=== PATIENT | male | born 1980 ===

== ENCOUNTER 2021-08-19 11:53 | Emergency (ER) | payer OTHER, SELFPAY ==
--- NOTE | ~2021-08-19 | CT_ITS ---
EXAMINATION: CT ABDOMEN AND PELVIS WITH CONTRAST CLINICAL INFORMATION: Abdominal distention and vomiting. History of Crohn's disease. COMPARISON: CT abdomen/pelvis dated from 02/16/2018. TECHNIQUE: Multidetector volumetric images were obtained from the superior aspect of the liver through the pubic symphysis following administration 85 mL of Omnipaque 350 intravenous contrast. Sagittal and coronal reformatted images were obtained on the technologist's workstation. Oral contrast: No This CT examination was performed using dose optimization techniques as appropriate, variously including the following: *Automated exposure control *Adjustment of mA and/or kV according to patient size (this includes techniques or standardized protocols for targeted exams where dose is matched to indication/reason for exam; i.e. extremities or head) *Use of iterative reconstruction technique DLP: 533 mGy-cm FINDINGS: LUNG BASES: No focal consolidation or pleural effusion. LIVER, GALLBLADDER, AND BILIARY TREE: Stable mild intra and extrahepatic biliary ductal dilatation, likely related with post cholecystectomy state. The common bile duct measures up to approximately 0.8 cm in maximum diameter. The liver is otherwise normal in size, shape and attenuation without discrete focal abnormalities. PANCREAS: Mild fat stranding in the chacha hepatis (coronal images 38 and 39, series 6) and root of the mesentery (3:30) is not significantly changed. The main pancreatic duct is nondilated. No focal parenchymal abnormalities. SPLEEN: Spleen measures 12.1 cm craniocaudally, unchanged. ADRENAL GLANDS: Unremarkable. KIDNEYS AND URETERS: The kidneys are normal in size, shape, and attenuation. A few too small to characterize cortical hypodensities are redemonstrated. No hydronephrosis, hydroureter, or calculi seen. No perinephric stranding. BLADDER: Unremarkable. GASTROINTESTINAL TRACT: Redemonstration of postoperative changes from prior colectomy with a small bowel anastomosis in the right lower quadrant, a rectosigmoid anastomosis and additional anastomotic sutures just above the anus. There are a few prominent loops of small bowel in the anterior upper abdomen measuring up to 2.7 cm in maximum diameter with air-fluid levels. There is no evidence of active inflammatory bowel changes. No free air or drainable collection. Redemonstration of multiple surgical sutures in the omental fat, similar to prior. ABDOMINAL WALL: Midline surgical scar. Small fat-containing inguinal hernias. LYMPH NODES: No lymphadenopathy by size criteria. VASCULAR: Unremarkable. PELVIC VISCERA: Unremarkable. OSSEOUS STRUCTURES: No acute or aggressive osseous abnormalities. CT/CT abdomen pelvis w con IMPRESSION: Postoperative changes from prior colectomy. There are a few prominent loops of small bowel in the upper abdomen with air-fluid levels which could be related with an early partial small bowel obstruction. There is no significant disproportional dilatation nor fecalization to suspect a significant obstruction. No active inflammatory bowel changes, free air nor drainable collection. Other chronic findings as above.
[2021-08-19 12:30] VITALS: BP 107/70; PULSE 88; RESP 16; TEMP 36.2; O2SAT 97; BMI 26.6
[2021-08-19 12:53] LABS: MANUAL DIFF FLAG NO
[2021-08-19 12:55] LABS: Appearance Urine CLEAR; Color Urine YELLOW; Glucose Urine UA NEG (NEG); Leukocyte Esterase Urine NEG (NEG); Nitrite Urine NEG (NEG); PH 5.5 (5.0-8.0); Specific Gravity - Urine >= 1.030 (1.005-1.025); Urine Blood NEG (NEG); Urine Ketones NEG (NEG); Urine Protein NEG (NEG-TRACE)
[2021-08-19 12:57] LABS: Basophils Percent Auto 0.2 % (0-2); Eosinophils Percent Auto 0.3 % (0-4); Hematocrit 41.9 % (42.0-52.0); Hemoglobin 14.7 g/dl (14.0-18.0); Imm Gran Abs Auto 0.02 X10*3/uL (0.00-0.03); Imm Gran Pct Auto 0.3 % (0.0-0.4); Lymphocytes Absolute Auto 1.4 X10*3/uL (1.2-4.9); Lymphocytes Percent Auto 21.6 % (20-40); Mean Corpuscular HGB Conc 35.1 g/dl (31.0-36.0); Mean Corpuscular Hemoglobin 31.7 pg (27.0-33.0); Mean Corpuscular Volume 90.3 fL (80.0-98.0); Mean Platelet Volume 10.9 fL (9.4-12.4); Monocytes Absolute Auto 0.3 X10*3/uL (0.1-1.2); Monocytes Percent Auto 4.5 % (2-11); Neutrophils Absolute Auto 4.9 x10*3/uL (2.0-8.3); Neutrophils Percent Auto 73.1 % (45-73); Platelet Count 200 X10*3/uL (160-400); Red Blood Count 4.64 X10*6/uL (4.60-5.80); Red Cell Distribution Width 12.3 % (11.0-16.0); White Blood Count 6.6 X10*3/uL (4.8-10.8)
[2021-08-19 13:21] LABS: Alanine Aminotransferase 34 U/L (0-40); Albumin Level 4.4 g/dL (3.5-5.0); Alkaline Phosphatase 66 U/L (39-117); Anion Gap 11 (12-20); Aspartate Amino Transferase 25 U/L (5-37); Blood Urea Nitrogen 10 mg/dL (9-16); Calcium 9.9 mg/dL (8.4-10.2); Carbon Dioxide 26 mmol/L (22-29); Chloride 104 mmol/L (96-108); Creatinine Clr Calc Pharmacy 111.6; Estimated Glomerular Filt Rate > 60; Glucose Random 105 mg/dL (60-115); Lipase 16 U/L (8-78); Potassium 4.4 mmol/L (3.3-5.1); Sodium 137 mmol/L (135-145); Total Protein 8.1 g/dL (6.5-8.0)
--- NOTE | 2021-08-19 15:34 | ED_ITS ---
HPI - Abdominal Pain General Chief Complaint: Abdominal Pain Stated Complaint: Crohns flare Time Seen by Provider: 08/19/21 15:17 Source: patient Mode of arrival: ambulatory Limitations: no limitations History of Present Illness HPI narrative: 40-year-old male with history of Crohn's disease on weekly Humira here with report of diffuse abdominal pain over the last 2-3 days with vomiting. Patient tells me that he has only had very small liquid stools over the last 2 days. Yesterday the stool was bloody in appearance but today it is more watery. No fevers or chills or urinary symptoms. Patient feels like his abdomen is distended. The patient has a history of a partial colon resection and subsequent bowel obstruction at [facility] in [place]. 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 [place] and is waiting for his 1st appointment in September Related Data Allergies Allergy/AdvReac Type Severity Reaction Status Date / Time ondansetron [Ondansetron] Allergy Mild HIVES Verified 08/19/21 12:34 Sulfa (Sulfonamide Allergy Mild UNKNOWN Verified 08/19/21 12:34 Antibiotics) ketorolac Allergy Unknown Unknown Verified 08/19/21 12:34 meperidine [Demerol] Allergy Unknown Unknown Verified 08/19/21 12:34 metoclopramide [Reglan] Allergy Unknown Unknown Verified 08/19/21 12:34 morphine [Morphine] Allergy Unknown RASH Unverified 03/28/20 16:35 From REGLAN Allergy Mild PT UNSURE Uncoded 03/28/20 16:35 BUT STATES HE IS ALLERGIC Compro Allergy Unknown Unknown Uncoded 08/19/21 12:34 From COMPAZINE Allergy Unknown ITCHING Uncoded 03/28/20 16:35 From Demerol Allergy Unknown ITCHY HIVES Uncoded 03/28/20 16:35 From Toradol Allergy Unknown UNK Uncoded 03/28/20 16:35 Review of Systems Review of Systems Yes all other systems are reviewed and are negative Constitutional: Reports no additional constitutional complaints, Denies body ache(s), Denies chills, Denies fever(s), Denies headache(s) and Denies weakness Eyes: Reports no additional eye complaints and Denies change in vision Reports system reviewed and no additional complaints, except as documented, Denies dizziness, Denies headache(s), Denies nasal congestion, Denies nasal discharge and Denies neck pain Cardiovascular: Reports no additional cardiovascular complaints, Denies chest pain, Denies leg edema and Denies dyspnea Respiratory: Reports no additional respiratory complaints, Denies cough and Denies dyspnea Gastrointestinal: Reports no additional gastrointestinal complaints, Reports abdominal pain, Reports hematochezia, Denies diarrhea, Reports nausea and Reports vomiting Genitourinary: Denies urinary incontinence Musculoskeletal: Reports no additional musculoskeletal complaints, Denies back pain, Denies arthralgias, Denies joint swelling, Denies neck pain, Denies numbness and Denies tingling Skin/Breast: Reports system reviewed and no additional complaints, except as docu and Denies rash Reports system reviewed and no additional complaints, except as documented, Denies Abnormal speech present, Denies dizziness, Denies headache(s), Denies numbness, Denies tingling and Denies weakness Physical Exam Vital Signs: Vital Signs: Last Vital Signs Temp 97.1 F 08/19/21 12:30 Pulse 84 08/19/21 15:41 Resp 16 08/19/21 15:41 BP 135/72 08/19/21 15:41 Pulse Ox 98 08/19/21 15:41 BMI result Body Mass Index 26.6 Const: General: cooperative, healthy appearing, comfortable and no acute distress Orientation/consciousness: patient oriented x3 Limitations: no limitations HENMT: Head: Yes normal to inspection Ears: hearing grossly normal bilaterally and TM's normal bilaterally General nose exam: Normal external nose present Face and sinus: Yes normal facial exam Mouth: Normal oral and palatal mucosa present Throat: Yes posterior oropharynx normal, Yes tonsils normal and Yes uvula midline Eyes: General: appearance normal, both eyes and all related structures Pupils: Equal, round and reactive pupils present Neck: Neck: Yes normal visual inspection Chest: Chest palpation & inspection: normal inspection of the chest Resp: Effort & Inspection: normal respiratory effort Auscultation: clear to auscultation bilaterally Cardio: Rate: regular rate Rhythm: regular rhythm Peripheral pulses: Peripheral pulses 2+ throughout GI: Inspection: Yes normal to inspection Palpation (GI): Firmness to palpation present (GI) (+distended) and Tenderness to palpation present (GI) (diffusely) Auscultation: Hypoactive bowel sounds present Back/Spine/Pelvis: Thoracic/Lumbar Spine: thoracic and lumbar spine normal to inspection Skin: General skin exam: no rashes or lesions noted Neuro: General: patient oriented x3, no focal motor deficits and normal sensation to monofilament Cranial nerves: Yes Equal, round and reactive pupils present Cognition (Neuro): normal cognition Speech: No Abnormal speech present Gait exam (Neuro): Normal gait present Motor exam (neuro): 5/5 motor strength present throughout Extrem: General: Yes normal to inspection Course Course Course Narrative: 40-year-old male with history of Crohn's status post resection status post small-bowel obstruction here with reports of diffuse abdominal pain with abdominal distention and vomiting for the last 2-3 days. On arrival the patient has a firm and distended abdomen with diffuse tenderness throughout. Has hypoactive bowel sounds. Will need labs, UA, CT abdomen and pelvis to rule out obstruction. Patient has multiple medication allergies and tells me he can have zofran if he is pre-medicated with benadryl. 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 Lab Data Attestation: I reviewed the patient's lab results. Result diagrams: 08/19/21 12:47 08/19/21 12:47 Labs: Lab Results 08/19/21 08/19/21 08/19/21 Range/Units 12:43 12:47 12:47 WBC 6.6 (4.8-10.8) X10*3/uL RBC 4.64 (4.60-5.80) X10*6/uL Hgb 14.7 (14.0-18.0) g/dl Hct 41.9 L (42.0-52.0) % MCV 90.3 (80.0-98.0) fL MCH 31.7 (27.0-33.0) pg MCHC 35.1 (31.0-36.0) g/dl RDW 12.3 (11.0-16.0) % Plt Count 200 (160-400) X10*3/uL MPV 10.9 (9.4-12.4) fL Immature Gran % (Auto) 0.3 (0.0-0.4) % Neut % (Auto) 73.1 H (45-73) % Lymph % (Auto) 21.6 (20-40) % [place] % (Auto) 4.5 (2-11) % Eos % (Auto) 0.3 (0-4) % Baso % (Auto) 0.2 (0-2) % Lymph # (Auto) 1.4 (1.2-4.9) X10*3/uL [place] # (Auto) 0.3 (0.1-1.2) X10*3/uL Eos # (Auto) 0.0 (0.0-0.4) X10*3/uL Baso # (Auto) 0.0 (0.0-0.2) X10*3/uL Abs Immat Gran (auto) 0.02 (0.00-0.03) X10*3/uL Absolute Neuts (auto) 4.9 (2.0-8.3) x10*3/uL Absolute Nucleated RBC 0.000 (0.0-0.012) X10*3/uL Nucleated RBC % (auto) 0.0 (0.0-0.2) /100WBC ESR (0-15) MM/HR Sodium 137 (135-145) mmol/L Potassium 4.4 (3.3-5.1) mmol/L Chloride 104 (96-108) mmol/L Carbon Dioxide 26 (22-29) mmol/L Anion Gap 11 L (12-20) BUN 10 (9-16) mg/dL Creatinine 0.75 (0.5-1.4) mg/dL Estim Creat Clear Calc 111.6 Estimated GFR > 60 Random Glucose 105 (60-115) mg/dL Calcium 9.9 (8.4-10.2) mg/dL Total Bilirubin 1.0 (0.0-1.0) mg/dL AST 25 (5-37) U/L ALT 34 (0-40) U/L Alkaline Phosphatase 66 (39-117) U/L C-Reactive Protein 0.03 (< or = 0.50) mg/dL Total Protein 8.1 H (6.5-8.0) g/dL Albumin 4.4 (3.5-5.0) g/dL Lipase 16 (8-78) U/L Urine Color YELLOW Urine Appearance CLEAR Urine pH 5.5 (5.0-8.0) Ur Specific [place] >= 1.030 H (1.005-1.025) Urine Protein NEG (NEG-TRACE) MG/DL Urine Glucose (UA) NEG (NEG) MG/DL Urine Ketones NEG (NEG) MG/DL Urine Blood NEG (NEG) Urine Nitrite NEG (NEG) Ur Leukocyte Esterase NEG (NEG) COVID-19 (LONG) (Negative) COVID-19 Clin Com 08/19/21 08/19/21 Range/Units 12:47 15:40 WBC (4.8-10.8) X10*3/uL RBC (4.60-5.80) X10*6/uL Hgb (14.0-18.0) g/dl Hct (42.0-52.0) % MCV (80.0-98.0) fL MCH (27.0-33.0) pg MCHC (31.0-36.0) g/dl RDW (11.0-16.0) % Plt Count (160-400) X10*3/uL MPV (9.4-12.4) fL Immature Gran % (Auto) (0.0-0.4) % Neut % (Auto) (45-73) % Lymph % (Auto) (20-40) % [place] % (Auto) (2-11) % Eos % (Auto) (0-4) % Baso % (Auto) (0-2) % Lymph # (Auto) (1.2-4.9) X10*3/uL [place] # (Auto) (0.1-1.2) X10*3/uL Eos # (Auto) (0.0-0.4) X10*3/uL Baso # (Auto) (0.0-0.2) X10*3/uL Abs Immat Gran (auto) (0.00-0.03) X10*3/uL Absolute Neuts (auto) (2.0-8.3) x10*3/uL Absolute Nucleated RBC (0.0-0.012) X10*3/uL Nucleated RBC % (auto) (0.0-0.2) /100WBC ESR 9 (0-15) MM/HR Sodium (135-145) mmol/L Potassium (3.3-5.1) mmol/L Chloride (96-108) mmol/L Carbon Dioxide (22-29) mmol/L Anion Gap (12-20) BUN (9-16) mg/dL Creatinine (0.5-1.4) mg/dL Estim Creat Clear Calc Estimated GFR Random Glucose (60-115) mg/dL Calcium (8.4-10.2) mg/dL Total Bilirubin (0.0-1.0) mg/dL AST (5-37) U/L ALT (0-40) U/L Alkaline Phosphatase (39-117) U/L C-Reactive Protein (< or = 0.50) mg/dL Total Protein (6.5-8.0) g/dL Albumin (3.5-5.0) g/dL Lipase (8-78) U/L Urine Color Urine Appearance Urine pH (5.0-8.0) Ur Specific [place] (1.005-1.025) Urine Protein (NEG-TRACE) MG/DL Urine Glucose (UA) (NEG) MG/DL Urine Ketones (NEG) MG/DL Urine Blood (NEG) Urine Nitrite (NEG) Ur Leukocyte Esterase (NEG) COVID-19 (LONG) Negative (Negative) COVID-19 Clin Com See Note Discharge Plan Discharge Clinical Impression: Abdominal pain Patient Disposition: Still a Patient PMFSH Past Medical History Attestation statement: The following information was validated with the patient. Source: old records reviewed and nursing notes reviewed Medical History Acute Crohn's disease Social History Social History Alcohol intake: never Patient Tobacco Use Status: Never used Tobacco Use of substances other than those prescribed or required for medical reasons: No Advance Directives: No Advance Directives Information Provided: No
[2021-08-19 15:37] LABS: C Reactive Protein 0.03 mg/dL (< or = 0.50)
[2021-08-19 15:41] VITALS: BP 135/72; PULSE 84; RESP 16; O2SAT 98
[2021-08-19 15:57] LABS: Erythrocyte Sedimentation Rate 9 MM/HR (0-15)
[2021-08-19] MEDS: HYDROmorphone HCl 0.5 MG/0.5 ML SYRINGE IVPUSH (15:59)
[2021-08-19] MEDS: ondansetron HCL 4 MG/2 ML VIAL IVPUSH (16:00)
[2021-08-19] MEDS: diphenhydrAMINE HCL 50 MG/ML VIAL 25 MG IVPUSH (16:00)
[2021-08-19] MEDS: 0.9 % Sodium Chloride 1,000 ML 999 ML IV (16:00)
[2021-08-19 16:13] LABS: COVID-19 Test Negative (Negative)
[2021-08-19] MEDS: iohexoL 350 MG/ML 100 ML INFUS..BTL IV (17:08)
[2021-08-19 17:59] VITALS: BP 112/77; PULSE 80; RESP 18; O2SAT 97
[2021-08-19 20:21] VITALS: RESP 18
[2021-08-19] MEDS: HYDROmorphone HCl 2 MG/ML VIAL IVPUSH (20:21)
--- NOTE | 2021-08-19 20:27 | PHA.MEDREC ---
Pharmacy Consult ? Medication Reconciliation Pharmacy has completed the medication reconciliation.
[2021-08-19 21:05] VITALS: BP 131/82; PULSE 72; RESP 18; TEMP 36.9; O2SAT 94
== END 2021-08-19 21:19 | disposition left against medical advice (07) ==
PROVIDERS: Nurse Practitioner Family; Emergency Provider Emergency Medicine
DX: R10.9 Unspecified abdominal pain (principal); R14.0 Abdominal distension (gaseous); Z20.822 Contact with and (suspected) exposure to COVID-19; Z79.899 Other long term (current) drug therapy
CPT/HCPCS: 36415; 74177; 80053; 81003; 83690; 85025; 85652; 86140; 87635; 96361; 96374; 96375; 96376; 99284; J1170; J1200; J2405; Q9967

== ENCOUNTER 2021-09-01 11:03 | Emergency (ER) | payer OTHER, SELFPAY ==
[2021-09-01 11:05] VITALS: BP 123/71; PULSE 82; RESP 18; TEMP 36.7; O2SAT 96; BMI 27.1
[2021-09-01 11:26] LABS: MANUAL DIFF FLAG NO
[2021-09-01 11:27] LABS: Basophils Percent Auto 0.3 % (0-2); Eosinophils Absolute Auto 0.1 X10*3/uL (0.0-0.4); Eosinophils Percent Auto 0.9 % (0-4); Hematocrit 41.3 % (42.0-52.0); Hemoglobin 14.4 g/dl (14.0-18.0); Imm Gran Abs Auto 0.01 X10*3/uL (0.00-0.03); Imm Gran Pct Auto 0.2 % (0.0-0.4); Lymphocytes Absolute Auto 1.4 X10*3/uL (1.2-4.9); Lymphocytes Percent Auto 24.3 % (20-40); Mean Corpuscular HGB Conc 34.9 g/dl (31.0-36.0); Mean Corpuscular Hemoglobin 32.1 pg (27.0-33.0); Mean Platelet Volume 11.1 fL (9.4-12.4); Monocytes Absolute Auto 0.4 X10*3/uL (0.1-1.2); Neutrophils Percent Auto 68.3 % (45-73); Platelet Count 185 X10*3/uL (160-400); Red Blood Count 4.49 X10*6/uL (4.60-5.80); Red Cell Distribution Width 12.4 % (11.0-16.0); White Blood Count 5.8 X10*3/uL (4.8-10.8)
[2021-09-01 11:29] LABS: Appearance Urine CLEAR; Color Urine YELLOW; Glucose Urine UA NEG (NEG); Leukocyte Esterase Urine NEG (NEG); Nitrite Urine NEG (NEG); Urine Blood NEG (NEG); Urine Ketones NEG (NEG); Urine Protein NEG (NEG-TRACE)
[2021-09-01 11:42] LABS: COVID-19 Test Negative (Negative)
[2021-09-01 11:44] LABS: Alanine Aminotransferase 24 U/L (0-40); Albumin Level 4.3 g/dL (3.5-5.0); Alkaline Phosphatase 65 U/L (39-117); Anion Gap 10 (12-20); Aspartate Amino Transferase 19 U/L (5-37); Bilirubin Total 1.4 mg/dL (0.0-1.0); Blood Urea Nitrogen 15 mg/dL (9-16); Calcium 9.5 mg/dL (8.4-10.2); Carbon Dioxide 28 mmol/L (22-29); Chloride 105 mmol/L (96-108); Creatinine Clr Calc Pharmacy 108.7; Estimated Glomerular Filt Rate > 60; Glucose Random 114 mg/dL (60-115); Potassium 4.4 mmol/L (3.3-5.1); Sodium 139 mmol/L (135-145); Total Protein 7.7 g/dL (6.5-8.0)
== END 2021-09-01 17:39 | disposition left against medical advice (07) ==
PROVIDERS: Emergency Provider Emergency Medicine
DX: M79.10 Myalgia, unspecified site (principal); R11.10 Vomiting, unspecified; Z79.899 Other long term (current) drug therapy; Z20.822 Contact with and (suspected) exposure to COVID-19
CPT/HCPCS: 36415; 80053; 81003; 85025; 87635; 99283

== ENCOUNTER 2021-09-08 08:22 | Emergency (ER) | payer OTHER, SELFPAY ==
--- NOTE | ~2021-09-08 | CT_ITS ---
EXAMINATION: CT ABDOMEN AND PELVIS WITH CONTRAST CLINICAL INFORMATION: Rigid abdomen with abdominal pain. COMPARISON: CT abdomen and pelvis with contrast 08/19/2021 TECHNIQUE: Multidetector volumetric images were obtained from the superior aspect of the liver through the pubic symphysis following administration 85 mL of Omnipaque 350 intravenous contrast. Sagittal and coronal reformatted images were obtained on the technologist's workstation. Oral contrast: No This CT examination was performed using dose optimization techniques as appropriate, variously including the following: *Automated exposure control *Adjustment of mA and/or kV according to patient size (this includes techniques or standardized protocols for targeted exams where dose is matched to indication/reason for exam; i.e. extremities or head) *Use of iterative reconstruction technique DLP: 522 mGy-cm FINDINGS: LUNG BASES: The visualized lung bases are unremarkable. LIVER, GALLBLADDER, AND BILIARY TREE: The liver is normal in size, shape, and attenuation. No focal hepatic lesion or biliary ductal dilatation is present. The gallbladder has been surgically removed. PANCREAS: Unremarkable. SPLEEN: Unremarkable. ADRENAL GLANDS: Unremarkable. KIDNEYS AND URETERS: The kidneys are normal in size, shape, and attenuation. No hydronephrosis, hydroureter, or calculi seen. No perinephric stranding. BLADDER: Unremarkable. GASTROINTESTINAL TRACT: There is total colectomy with small bowel to sigmoid colon anastomosis in the upper pelvis. The anastomotic site appears patent. The small bowel loops are normal caliber. No free air or free fluid seen. Scattered surgical nuria are seen throughout the peritoneum in the upper and mid abdomen. ABDOMINAL WALL: There is a small umbilical hernia containing fat. LYMPH NODES: Normal. VASCULAR: Unremarkable. PELVIC VISCERA: There is no free air or free fluid. There are surgical sutures along the sigmoid colon. No abnormal pelvic lymph nodes. No inguinal hernia. Incidental penile prosthesis is noted. The prostate gland is mildly enlarged with central gland calcification. OSSEOUS STRUCTURES: No aggressive lytic or sclerotic process seen. CT/CT abdomen pelvis w con IMPRESSION: Postoperative changes from total colectomy with patent anastomotic site between the small bowel and colon. No small bowel obstruction, inflammatory process or free fluid seen. No abnormal pelvic or retroperitoneal lymph nodes seen. Post cholecystectomy changes. Prostate is mildly enlarged. Fleischner guidelines were followed.
[2021-09-08 08:29] VITALS: BP 114/74; PULSE 74; RESP 18; TEMP 36.9; O2SAT 98; BMI 26.6
--- NOTE | 2021-09-08 08:52 | ED_ITS ---
HPI - Abdominal Pain General Chief Complaint: Abdominal Pain Stated Complaint: body aches chrones disease Time Seen by Provider: 09/08/21 08:52 Source: patient Mode of arrival: ambulatory Limitations: no limitations History of Present Illness HPI narrative: Patient is a 40 year old male presenting to the emergency department today with abdominal pain and nausea. Patient states that he has a history of crohns disease and an intermittent small bowel obstruction. Patient states that 1 month ago he had a small bowel obstruction that caused him to get admitted and then it self resolved. Patient states that dilaudid and zofran usually helps his pain. Patient denies any dizziness, lightheadedness, fever, chills, blurry vision, double vision, loss of vision, chest pain, difficulty breathing, shortness of breath, back pain, night sweats, pain with urination, increased urinary frequency, increased urinary urgency, blood in his urine or stool, syncope or a near syncopal episode, recent trauma or falls, bowel incontinence, bladder incontinence, bowel retention, bladder retention, or any other complaints at this time. MD elicited complaint: abdominal pain Pertinent past history: other (crohns disease, small bowel obstruction) Onset (ago): day(s) (1) Pain Consistency: constant Location: diffuse Severity: moderate Pain scale (0-10): 7 Quality: cramping and sharp Migration to: no migration Exacerbating factors: nothing Relieving factors: nothing Associated symptoms: nausea and vomiting Related Data Home Medications Medication Instructions Recorded Confirmed adalimumab 40 mg/0.4 mL 40 mg SUBCUT QWEEK 08/19/21 08/19/21 subcutaneous pen kit (Alexusira(CF) Pen) clonazepam 1 mg tablet 1 tab PO BID PRN 08/19/21 08/19/21 ferrous sulfate 325 mg (65 mg 1 tab PO Q OTHER DAY 08/19/21 08/19/21 iron) tablet,delayed release loratadine 10 mg tablet 1 tab PO DAILY PRN 08/19/21 08/19/21 magnesium oxide 400 mg (241.3 mg 1 tab PO BEDTIME 08/19/21 08/19/21 magnesium) tablet multivitamin with folic acid 400 1 tab PO DAILY 08/19/21 08/19/21 mcg tablet (Daily-Davis (with folic acid)) omeprazole 20 mg capsule,delayed 1 cap PO BID 08/19/21 08/19/21 release propranolol 10 mg tablet 1 tab PO BID 08/19/21 08/19/21 riboflavin (vitamin B2) 100 mg 2 tab PO BID 08/19/21 08/19/21 tablet (Vitamin B-2) sumatriptan succinate 100 mg tablet 100 mg PO DAILY PRN 08/19/21 08/19/21 tizanidine 4 mg tablet 1 - 1.5 tab PO BEDTIME 08/19/21 08/19/21 zolpidem 10 mg tablet 1 tab PO BEDTIME 08/19/21 08/19/21 Previous Rx's Medication Instructions Recorded tramadol 50 mg tablet 50 mg PO Q6H PRN #7 tab 08/19/21 Allergies Allergy/AdvReac Type Severity Reaction Status Date / Time ondansetron [Ondansetron] Allergy Mild HIVES Verified 08/19/21 12:34 Sulfa (Sulfonamide Allergy Mild UNKNOWN Verified 08/19/21 12:34 Antibiotics) ketorolac Allergy Unknown Unknown Verified 08/19/21 12:34 meperidine [Demerol] Allergy Unknown Unknown Verified 08/19/21 12:34 metoclopramide [Reglan] Allergy Unknown Unknown Verified 08/19/21 12:34 morphine [Morphine] Allergy Unknown RASH Unverified 03/28/20 16:35 From REGLAN Allergy Mild PT UNSURE Uncoded 03/28/20 16:35 BUT STATES HE IS ALLERGIC Compro Allergy Unknown Unknown Uncoded 08/19/21 12:34 From COMPAZINE Allergy Unknown ITCHING Uncoded 03/28/20 16:35 From Demerol Allergy Unknown ITCHY HIVES Uncoded 03/28/20 16:35 From Toradol Allergy Unknown UNK Uncoded 03/28/20 16:35 Review of Systems Constitutional: Reports no additional constitutional complaints, Denies chills, Denies fever(s) and Denies night sweats Eyes: Reports no additional eye complaints, Denies blurry vision, Denies change in vision, Denies diplopia, Denies eye discharge, Denies loss of vision and Denies eye pain Denies dizziness Cardiovascular: Reports no additional cardiovascular complaints, Denies chest pain, Denies lightheadedness, Denies Loss of Consciousness and Denies dyspnea Respiratory: Reports no additional respiratory complaints and Denies dyspnea Gastrointestinal: Reports no additional gastrointestinal complaints, Reports a bdominal pain, Denies melena, Denies hematochezia, Denies change in bowel habits, Denies change in stool character, Reports nausea and Reports vomiting Genitourinary: Reports no additional male genitourinary complaints, Denies hematuria, Denies oliguria, Denies difficulty urinating, Denies dysuria, Denies urinary frequency, Denies urinary hesitancy, Denies urinary incontinence and Denies urinary urgency Musculoskeletal: Reports no additional musculoskeletal complaints, Denies numbness and Denies tingling Denies dizziness, Denies loss of vision, Denies numbness and Denies tingling Psychiatric: Reports no additional psychiatric complaints Endocrine: Reports no additional endocrine complaints Hematologic/Lymphatic: Reports no additional hematologic/lymphatic complaints Allergic/Immunologic: Reports no additional allergic/immunologic complaints [facility] Past Medical History Attestation statement: The following information was validated with the patient. Source: old records reviewed Medical History Acute Crohn's disease Partial small bowel obstruction Social History Social History Alcohol intake: never Patient Tobacco Use Status: Never used Tobacco Use of substances other than those prescribed or required for medical reasons: No Advance Directives: No Advance Directives Information Provided: No Physical Exam ED Vital Signs: Vital Signs - 24 hr 09/08/21 08:29 09/08/21 09:46 09/08/21 11:06 Temperature 98.4 F 98.4 F Pulse Rate 74 72 80 Respiratory Rate 18 14 20 Blood Pressure 114/74 126/72 107/62 Pulse Oximetry 98 97 98 09/08/21 12:46 Temperature 98.3 F Pulse Rate 69 Respiratory Rate 16 Blood Pressure 128/83 Pulse Oximetry 96 BMI result Body Mass Index 26.6 Const General: cooperative, no acute distress, alert and awake Nutritional Appearance: well nourished Orientation/consciousness: patient oriented x3 Limitations: no limitations HENMT Head: Yes normal to inspection and Yes atraumatic Ears: hearing grossly normal bilaterally and external ears normal General nose exam: Normal external nose present, no nasal discharge noted and no epistaxis Face and sinus: Yes normal facial exam, No abrasion and No laceration Mouth: Normal oral and palatal mucosa present, no drooling and no muffled voice Eyes General: appearance normal, both eyes and all related structures Periorbital: periorbital findings normal Eyelids: Yes eyelids normal Conjunctivae: conjunctivae normal Pupils: Equal, round and reactive pupils present EOM: EOMs intact bilaterally Neck Neck: Yes normal visual inspection, Yes full ROM and Yes no lymphadenopathy Chest Chest palpation & inspection: normal inspection of the chest Resp Effort & Inspection: normal respiratory effort and able to speak in complete sentences Auscultation: clear to auscultation bilaterally Cardio Rate: regular rate Rhythm: regular rhythm GI Inspection: Yes distended Palpation (GI): Firmness to palpation present (GI) other (diffuse) and Tenderness to palpation present (GI) other (diffuse tenderness) Auscultation: normal bowel sounds Neuro General: patient oriented x3 and moves all extremities Cranial nerves: Yes Equal, round and reactive pupils present Cognition (Neuro): normal cognition Motor exam (neuro): 5/5 motor strength present throughout Sensory Exam: Normal double simultaneous stimulation for sensation Coordination: [id number] test normal Extrem General: Yes normal to inspection, Yes full ROM and Yes capillary refill normal Psych Appearance: grossly normal Mental Status: mental status grossly normal Affect: normal affect Attitude: cooperative Thought process: Normal thought process present Thought content: Normal thought content present Insight: Good insight present (Psych) MDM - Abdominal Pain MDM Narrative Medical decision making narrative: Patient is a 40 year old male presenting to the emergency department today with abdominal pain. Patient's physical exam showed tenderness and firmness to palpation of the patient's abdomen however, patient's bowel sounds were normal throughout. Patient's blood work was unremarkable. Patient's abdominal CT showed no acute process. I explained my physical exam findings as well as all test results to the patient. I answered all questions asked by the patient. Patient received IV dilaudid and ativan which he stated helped his symptoms significantly. I stressed the importance of the patient taking his medication as prescribed. I stressed the importance of the patient following up with his primary care provider and his GI specialist. I stressed the importance of the patient returning to the emergency department immediately if his symptoms were to worsen or if he were to develop any dizziness, shortness of breath, difficulty breathing, chest pain, blurry vision, loss of vision, nausea, vomiting, abdominal pain, fever, chills, back pain, or any other complaints. Patient verbalized agreement and understanding with this treatment plan and discharge. Differential Diagnosis Differential diagnosis: Likely abdominal pain, bowel perforation and small bowel obstruction Medical Records Attestation: I reviewed the patient's medical records. Lab Data Attestation: I reviewed the patient's lab results. Result diagrams: 09/08/21 09:44 09/08/21 09:44 Labs: Lab Results 09/08/21 09/08/21 09/08/21 Range/Units 09:44 09:44 09:44 WBC 5.2 (4.8-10.8) X10*3/uL RBC 4.26 L (4.60-5.80) X10*6/uL Hgb 13.8 L (14.0-18.0) g/dl Hct 39.2 L (42.0-52.0) % MCV 92.0 (80.0-98.0) fL MCH 32.4 (27.0-33.0) pg MCHC 35.2 (31.0-36.0) g/dl RDW 12.6 (11.0-16.0) % Plt Count 157 L (160-400) X10*3/uL MPV 11.1 (9.4-12.4) fL Immature Gran % (Auto) 0.2 (0.0-0.4) % Neut % (Auto) 64.3 (45-73) % Lymph % (Auto) 26.6 (20-40) % Mckenzie % (Auto) 7.5 (2-11) % Eos % (Auto) 1.0 (0-4) % Baso % (Auto) 0.4 (0-2) % Lymph # (Auto) 1.4 (1.2-4.9) X10*3/uL Mckenzie # (Auto) 0.4 (0.1-1.2) X10*3/uL Eos # (Auto) 0.1 (0.0-0.4) X10*3/uL Baso # (Auto) 0.0 (0.0-0.2) X10*3/uL Abs Immat Gran (auto) 0.01 (0.00-0.03) X10*3/uL Absolute Neuts (auto) 3.4 (2.0-8.3) x10*3/uL Absolute Nucleated RBC 0.000 (0.0-0.012) X10*3/uL Nucleated RBC % (auto) 0.0 (0.0-0.2) /100WBC PT 11.2 (9.9-13.0) SEC INR 1.0 (0.9-1.1) APTT 28.8 (24.1-38.0) SEC Sodium 140 (135-145) mmol/L Potassium 4.4 (3.3-5.1) mmol/L Chloride 107 (96-108) mmol/L Carbon Dioxide 27 (22-29) mmol/L Anion Gap 10 L (12-20) BUN 15 (9-16) mg/dL Creatinine 0.70 (0.5-1.4) mg/dL Estim Creat Clear Calc 119.5 Estimated GFR > 60 Random Glucose 104 (60-115) mg/dL Calcium 9.6 (8.4-10.2) mg/dL Total Bilirubin 1.2 H (0.0-1.0) mg/dL AST 25 (5-37) U/L ALT 24 (0-40) U/L Alkaline Phosphatase 62 (39-117) U/L Total Protein 7.3 (6.5-8.0) g/dL Albumin 4.1 (3.5-5.0) g/dL Imaging Data CT scan - abdomen: Attestation: I personally reviewed and interpreted this imaging study as follows: Radiologist's impression: EXAMINATION: CT ABDOMEN AND PELVIS WITH CONTRAST? CLINICAL INFORMATION: Rigid abdomen with abdominal pain.? COMPARISON: CT abdomen and pelvis with contrast 08/19/2021 TECHNIQUE: Multidetector volumetric images were obtained from the superior aspect of the liver through the pubic symphysis following administration 85 mL of Omnipaque 350 intravenous contrast. Sagittal and coronal reformatted images were obtained on the technologist's workstation.? Oral contrast: No This CT examination was performed using dose optimization techniques as appropriate, variously including the following: *Automated exposure control *Adjustment of mA and/or kV according to patient size (this includes techniques or standardized protocols for targeted exams where dose is matched to indication/reason for exam; i.e. extremities or head) *Use of iterative reconstruction technique DLP: 522 mGy-cm FINDINGS: LUNG BASES: The visualized lung bases are unremarkable.? LIVER, GALLBLADDER, AND BILIARY TREE: The liver is normal in size, shape, and attenuation. No focal hepatic lesion or biliary ductal dilatation is present. The gallbladder has been surgically removed.? PANCREAS: Unremarkable.? SPLEEN: Unremarkable.? ADRENAL GLANDS: Unremarkable.? KIDNEYS AND URETERS: The kidneys are normal in size, shape, and attenuation. No hydronephrosis, hydroureter, or calculi seen. No perinephric stranding. ? BLADDER: Unremarkable.? GASTROINTESTINAL TRACT: There is total colectomy with small bowel to sigmoid colon anastomosis in the upper pelvis. The anastomotic site appears patent. The small bowel loops are normal caliber. No free air or free fluid seen. Scattered surgical nuria are seen throughout the peritoneum in the upper and mid abdomen. ABDOMINAL WALL: There is a small umbilical hernia containing fat.? LYMPH NODES: Normal. VASCULAR: Unremarkable. PELVIC VISCERA: There is no free air or free fluid. There are surgical sutures along the sigmoid colon. No abnormal pelvic lymph nodes. No inguinal hernia. Incidental penile prosthesis is noted. The prostate gland is mildly enlarged with central gland calcification. OSSEOUS STRUCTURES: No aggressive lytic or sclerotic process seen.? CT/CT abdomen pelvis w con IMPRESSION: Postoperative changes from total colectomy with patent anastomotic site between the small bowel and colon. ? No small bowel obstruction, inflammatory process or free fluid seen. No abnormal pelvic or retroperitoneal lymph nodes seen. ? Post cholecystectomy changes. ? Prostate is mildly enlarged. ? Fleischner guidelines were followed. Dictated By: Kg Jean MD Signed By: Electronically signed by Kg Jean MD 09/08/21 4817 Discharge Plan Discharge Clinical Impression: Crohn disease Patient Disposition: Home, Self-Care Instructions: Crohn Disease (ED), Low Fiber Diet (ED) Additional Instructions: Follow up with your primary care provider and your GI specialist. Return to the emergency department immediately if your symptoms worsen or if you develop any dizziness, shortness of breath, difficulty breathing, chest pain, blurry vision, loss of vision, nausea, vomiting, abdominal pain, fever, chills, back pain, or any other complaints. Prescriptions: No Action tizanidine 4 mg tablet 1 - 1.5 tab PO BEDTIME 0RF riboflavin (vitamin B2) [Vitamin B-2] 100 mg tablet 2 tab PO BID 0RF sumatriptan succinate 100 mg tablet 100 mg PO DAILY PRN (Reason: Migraine Headache) 0RF clonazepam 1 mg tablet 1 tab PO BID PRN (Reason: Anxiety) 0RF propranolol 10 mg tablet 1 tab PO BID 0RF magnesium oxide 400 mg (241.3 mg magnesium) tablet 1 tab PO BEDTIME 0RF omeprazole 20 mg capsule,delayed release(DR/EC) 1 cap PO BID 0RF zolpidem 10 mg tablet 1 tab PO BEDTIME 0RF ferrous sulfate 325 mg (65 mg iron) tablet,delayed release (DR/EC) 1 tab PO Q OTHER DAY 0RF loratadine 10 mg tablet 1 tab PO DAILY PRN (Reason: Allergy Symptoms) 0RF multivitamin with folic acid [Daily-Davis (with folic acid)] 400 mcg tablet 1 tab PO DAILY 0RF Humira(CF) Pen 40 mg/0.4 mL pen injector kit 40 mg subcut QWEEK 0RF tramadol 50 mg tablet 50 mg PO Q6H PRN (Reason: pain) Qty: 7 0RF Referrals: Manuel Harris MD [Primary Care Provider] - 2 days Print Language: Brazilian
[2021-09-08 09:46] VITALS: BP 126/72; PULSE 72; RESP 14; TEMP 36.9; O2SAT 97
[2021-09-08 09:48] LABS: Basophils Percent Auto 0.4 % (0-2); Eosinophils Absolute Auto 0.1 X10*3/uL (0.0-0.4); Hematocrit 39.2 % (42.0-52.0); Hemoglobin 13.8 g/dl (14.0-18.0); Imm Gran Abs Auto 0.01 X10*3/uL (0.00-0.03); Imm Gran Pct Auto 0.2 % (0.0-0.4); Lymphocytes Absolute Auto 1.4 X10*3/uL (1.2-4.9); Lymphocytes Percent Auto 26.6 % (20-40); MANUAL DIFF FLAG NO; Mean Corpuscular HGB Conc 35.2 g/dl (31.0-36.0); Mean Corpuscular Hemoglobin 32.4 pg (27.0-33.0); Mean Platelet Volume 11.1 fL (9.4-12.4); Monocytes Absolute Auto 0.4 X10*3/uL (0.1-1.2); Monocytes Percent Auto 7.5 % (2-11); Neutrophils Absolute Auto 3.4 x10*3/uL (2.0-8.3); Neutrophils Percent Auto 64.3 % (45-73); Platelet Count 157 X10*3/uL (160-400); Red Blood Count 4.26 X10*6/uL (4.60-5.80); Red Cell Distribution Width 12.6 % (11.0-16.0); White Blood Count 5.2 X10*3/uL (4.8-10.8)
[2021-09-08] MEDS: ondansetron HCL 4 MG/2 ML VIAL IVPUSH (09:52)
[2021-09-08] MEDS: HYDROmorphone HCl 1 MG/ML SYRINGE IVPUSH ×2 (09:53→11:56)
[2021-09-08 10:04] LABS: Alanine Aminotransferase 24 U/L (0-40); Albumin Level 4.1 g/dL (3.5-5.0); Alkaline Phosphatase 62 U/L (39-117); Anion Gap 10 (12-20); Aspartate Amino Transferase 25 U/L (5-37); Bilirubin Total 1.2 mg/dL (0.0-1.0); Blood Urea Nitrogen 15 mg/dL (9-16); Calcium 9.6 mg/dL (8.4-10.2); Carbon Dioxide 27 mmol/L (22-29); Chloride 107 mmol/L (96-108); Creatinine Clr Calc Pharmacy 119.5; Estimated Glomerular Filt Rate > 60; Glucose Random 104 mg/dL (60-115); Potassium 4.4 mmol/L (3.3-5.1); Sodium 140 mmol/L (135-145); Total Protein 7.3 g/dL (6.5-8.0)
[2021-09-08 10:11] LABS: Prothrombin Time 11.2 SEC (9.9-13.0)
[2021-09-08 10:14] LABS: Partial Thromboplastin Time 28.8 SEC (24.1-38.0)
[2021-09-08 11:06] VITALS: BP 107/62; PULSE 80; RESP 20; O2SAT 98
[2021-09-08] MEDS: iohexoL 350 MG/ML 100 ML INFUS..BTL IV (11:38)
[2021-09-08] MEDS: LORazepam 2 MG/ML VIAL 1 MG IVPUSH (11:56)
[2021-09-08 12:46] VITALS: BP 128/83; PULSE 69; RESP 16; TEMP 36.8; O2SAT 96
[2021-09-08 14:04] LABS: Appearance Urine CLEAR; Color Urine YELLOW; Glucose Urine UA NEG (NEG); Leukocyte Esterase Urine NEG (NEG); Nitrite Urine NEG (NEG); PH 5.5 (5.0-8.0); Specific Gravity - Urine <= 1.005 (1.005-1.025); Urine Blood NEG (NEG); Urine Ketones NEG (NEG); Urine Protein NEG (NEG-TRACE)
[2021-09-08 14:34] VITALS: BP 106/77; PULSE 59; RESP 16; O2SAT 97
== END 2021-09-08 14:45 | disposition home or self-care (01) ==
PROVIDERS: Physician Assistant Medical; Emergency Provider Emergency Medicine; PCP Internal Medicine
DX: K50.90 Crohn's disease, unspecified, without complications (principal); R10.9 Unspecified abdominal pain; Z90.49 Acquired absence of other specified parts of digestive tract
CPT/HCPCS: 36415; 74177; 80053; 81003; 85025; 85610; 85730; 96374; 96375; 96376; 99284; 99285; J1170; J2060; J2405; Q9967

== ENCOUNTER 2021-09-16 14:43 | Emergency (ER) | payer OTHER, SELFPAY | END 2021-09-16 16:38 | disposition left against medical advice (07) | PROVIDERS: Emergency Provider Emergency Medicine | DX: R10.9 Unspecified abdominal pain (principal); R11.2 Nausea with vomiting, unspecified ==

== ENCOUNTER 2021-09-18 10:06 | Inpatient (IN) | payer OTHER, SELFPAY ==
--- NOTE | ~2021-09-18 | CT_ITS ---
EXAMINATION: CT ABDOMEN AND PELVIS WITH CONTRAST CLINICAL INFORMATION: Right abdominal pain. Question obstruction. COMPARISON: 09/08/2021 TECHNIQUE: Multidetector volumetric images were obtained from the superior aspect of the liver through the pubic symphysis following administration 85 mL of Omnipaque 350 intravenous contrast. Sagittal and coronal reformatted images were obtained on the technologist's workstation. Oral contrast: No This CT examination was performed using dose optimization techniques as appropriate, variously including the following: *Automated exposure control *Adjustment of mA and/or kV according to patient size (this includes techniques or standardized protocols for targeted exams where dose is matched to indication/reason for exam; i.e. extremities or head) *Use of iterative reconstruction technique DLP: 557 mGy-cm FINDINGS: LUNG BASES: The visualized lung bases are unremarkable. LIVER, GALLBLADDER, AND BILIARY TREE: The liver is normal in size, shape, and attenuation. No focal hepatic lesion or biliary ductal dilatation is present. Cholecystectomy. PANCREAS: Unremarkable. SPLEEN: Unremarkable. ADRENAL GLANDS: Unremarkable. KIDNEYS AND URETERS: The kidneys are normal in size, shape, and attenuation. No hydronephrosis, hydroureter, or calculi seen. No perinephric stranding. BLADDER: Unremarkable. GASTROINTESTINAL TRACT: The stomach is unremarkable. Status post total colectomy with J-pouch. Stool within the reservoir. Normal caliber small bowel. No obstruction. No inflammatory change. No free air or free fluid. ABDOMINAL WALL: No significant hernia is appreciated. LYMPH NODES: Normal. VASCULAR: Unremarkable. PELVIC VISCERA: The prostate and seminal vesicles are unremarkable. OSSEOUS STRUCTURES: No acute or suspicious osseous abnormality. Mild degenerative changes of the spine. CT/CT abdomen pelvis w con IMPRESSION: No acute findings of the abdomen or pelvis. Status post total colectomy. No bowel obstruction. No inflammation. Fleischner guidelines were followed.
[2021-09-18 10:10] VITALS: BP 116/77; PULSE 87; RESP 16; TEMP 36.6; O2SAT 98; BMI 26.6
--- NOTE | 2021-09-18 11:14 | ED_ITS ---
HPI - Abdominal Pain General Chief Complaint: Nausea/Vomiting/Diarrhea Stated Complaint: vomiting Time Seen by Provider: 09/18/21 11:00 Source: patient Mode of arrival: ambulatory Limitations: no limitations History of Present Illness HPI narrative: Patient is a 40-year-old male with a past medical history of Crohn's disease and partial colon resection and subsequent bowel obstructions. He presents today for evaluation of abdominal pain with vomiting and diarrhea. He states over the past 3 days he is experiencing diffuse abdominal pain but particularly worse on the right that has been increasingly worse. He has been vomiting and having multiple episodes of diarrhea each day. Today his vomit is red tinged, and he reports bright red blood in his stools also. He is concerned that his abdomen is very distended. He contact his primary care provider who advised him to come to the emergency department. Patient moved recently from [place], [place] and has not yet established care with a wide area network systems administrator in the area. Reports that he took his Humira today. He reports he has an upcoming appointment 09/24/2021. Related Data Home Medications Medication Instructions Recorded Confirmed adalimumab 40 mg/0.4 mL 40 mg SUBCUT QWEEK 08/19/21 08/19/21 subcutaneous pen kit (Humira(CF) Pen) clonazepam 1 mg tablet 1 tab PO BID PRN 08/19/21 08/19/21 ferrous sulfate 325 mg (65 mg 1 tab PO Q OTHER DAY 08/19/21 08/19/21 iron) tablet,delayed release loratadine 10 mg tablet 1 tab PO DAILY PRN 08/19/21 08/19/21 magnesium oxide 400 mg (241.3 mg 1 tab PO BEDTIME 08/19/21 08/19/21 magnesium) tablet multivitamin with folic acid 400 1 tab PO DAILY 08/19/21 08/19/21 mcg tablet (Daily-Davis (with folic acid)) omeprazole 20 mg capsule,delayed 1 cap PO BID 08/19/21 08/19/21 release propranolol 10 mg tablet 1 tab PO BID 08/19/21 08/19/21 riboflavin (vitamin B2) 100 mg 2 tab PO BID 08/19/21 08/19/21 tablet (Vitamin B-2) sumatriptan succinate 100 mg tablet 100 mg PO DAILY PRN 08/19/21 08/19/21 tizanidine 4 mg tablet 1 - 1.5 tab PO BEDTIME 08/19/21 08/19/21 zolpidem 10 mg tablet 1 tab PO BEDTIME 08/19/21 08/19/21 Previous Rx's Medication Instructions Recorded tramadol 50 mg tablet 50 mg PO Q6H PRN #7 tab 08/19/21 Allergies Allergy/AdvReac Type Severity Reaction Status Date / Time ondansetron [Ondansetron] Allergy Mild HIVES Verified 09/18/21 11:39 Sulfa (Sulfonamide Allergy Mild UNKNOWN Verified 09/18/21 11:39 Antibiotics) ketorolac Allergy Unknown Unknown Verified 09/18/21 11:39 meperidine [Demerol] Allergy Unknown Unknown Verified 09/18/21 11:39 metoclopramide [Reglan] Allergy Unknown Unknown Verified 09/18/21 11:39 morphine [Morphine] Allergy Unknown RASH Verified 09/18/21 11:39 ketamine Allergy Unknown Verified 09/18/21 11:39 From REGLAN Allergy Mild PT UNSURE Uncoded 09/18/21 11:39 BUT STATES HE IS ALLERGIC Compro Allergy Unknown Unknown Uncoded 09/18/21 11:39 From COMPAZINE Allergy Unknown ITCHING Uncoded 09/18/21 11:39 From Demerol Allergy Unknown ITCHY HIVES Uncoded 09/18/21 11:39 From Toradol Allergy Unknown UNK Uncoded 09/18/21 11:39 Review of Systems Review of Systems Constitutional : No Weight loss, No Fever, No Chills ENT/Mouth :? No sore throat, No Rhinorrhea Eyes: No Swelling, No Redness Cardiovascular : No Chest Pain, No SOB, No Edema Respiratory : No Cough, No Sputum, No Wheezing Gastrointestinal : Positive Nausea, Positive Vomiting, positive Diarrhea, positive abdominal pain, positive Hematochezia, No Melena Genitourinary : No Dysuria, No Urinary Frequency, No Hematuria, No Urgency? Musculoskeletal : No joint pain, No Myalgias, No Joint Swelling Skin : No Skin Lesions, No rash Neuro : No Weakness, No Numbness, No Dizziness, No Headache Psych : No Anxiety/Panic, No Depression Heme/Lymph: No Bruising, No Lymphadenopathy Endocrine : No Polyuria, No Polydipsia Yes all other systems are reviewed and are negative PMFSH Past Medical History Attestation statement: The following information was validated with the patient. Source: old records reviewed Medical History (Updated 09/18/21 @ 15:37 by Luis Woods DO) Acute Crohn's disease Partial small bowel obstruction Social History Social History Alcohol intake: never Patient Tobacco Use Status: Never used Tobacco Use of substances other than those prescribed or required for medical reasons: No Advance Directives: No Advance Directives Information Provided: No Physical Exam ED Vital Signs: Vital Signs - 24 hr 09/18/21 10:10 09/18/21 12:41 Temperature 97.8 F Pulse Rate 87 88 Respiratory Rate 16 Blood Pressure 116/77 122/78 Pulse Oximetry 98 99 BMI result Body Mass Index 26.6 Vital signs have been reviewed as normal and appeared to be correct. Blood pressure normal.? Heart rate normal.? Respiration rate normal. Temperature normal.? Oxygen saturation normal. Appearance: Alert.?Oriented to person, place and time. No acute distress.?Normal affect. Eyes: Pupils equal, round and reactive to light.? ENT: Pharynx normal.?? Neck: Normal inspection.? Neck supple.?? CVS: Heart sounds normal. Normal heart rate and rhythm.? Pulses normal.?? Respiratory: No respiratory distress.? Lung sounds clear to auscultation bilaterally?? Abdomen: Abdomen is diffusely tender, distended, visualized red tinged emesis bag. Normoactive bowel sounds. No pulsatile mass.?? Skin: Skin warm and dry.? Normal skin color.? Normal skin turgor.?? Extremities: No lower extremity edema.? Neuro: Moves all extremities spontaneously. Sensation intact bilaterally. CN II- XII intact. No focal neuro deficits. Ambulates with normal steady gait. Course Course Course Narrative: Patient is a 40-year-old male being evaluated for abdominal pain, nausea, vomiting, diarrhea, with bloody emesis and bloody stools. Given his history of Crohn's and history of obstructions he reports concern that there is currently an obstruction. He reports that typically his pain is well managed with Dilaudid as he has an allergy to ketorolac and morphine. In addition his nausea and vomiting are best controlled with ondansetron though he reports he dates to be premedicated with Benadryl as he does have a history of hives with this medication, and he is also allergic to metoclopramide and Compazine. Will obtain serum labs to evaluate for leukocytosis, anemia, abnormal electrolytes, normal renal function, abnormal hepatic/biliary function. Urinalysis to exclude infection. CT of the abdomen and pelvis to evaluate for colitis/obstruction. Disposition will be pending results Reevaluation(s) Reevaluation #1: CBC with no leukocytosis or anemia, hemoglobin and hematocrit 15.3 and 44.4 respectively. CMP is overall unremarkable, ALT is mildly elevated at 60 with normal total bilirubin and AST. CRP and ESR are normal. Urinalysis is clear from a sign of infection, no hematuria. Continues to report severe abdominal pain and vomiting, initial dosing of Dilaudid and zofran not helpful, will administer an extra dose at this time. Time: 12:30 Reevaluation #2: CT of the abdomen and pelvis is is normal, no bowel obstruction or inflammation. Patient remains with persistent pain, and vomiting. Unable to tolerate any p.o. intake. Message sent to GI Dr. Figueroa, for recommendations whether to initiate treatment with corticosteroids for possible Crohn's flare. Discussed with patient, he is agreeable for hospital admission. Message sent to Dr. Trevino for hospital admission. Time: 14:00 Reevaluation #3: GI recommends management with steroids and hospital admission, patient continues to report pain and vomiting at this time, will trial additional dose of Benadr yl 25 mg IV and Ativan 1 mg IV. Patient accepted for admission to hospitalist service by Dr. Woods Time: 14:35 MDM - Abdominal Pain Medical Records Attestation: I reviewed the patient's medical records. Lab Data Attestation: I reviewed the patient's lab results. Result diagrams: 09/18/21 11:33 09/18/21 11:33 Labs: Lab Results 09/18/21 09/18/21 09/18/21 Range/Units 11:33 11:33 11:33 WBC 6.3 (4.8-10.8) X10*3/uL RBC 4.78 (4.60-5.80) X10*6/uL Hgb 15.3 (14.0-18.0) g/dl Hct 44.4 (42.0-52.0) % MCV 92.9 (80.0-98.0) fL MCH 32.0 (27.0-33.0) pg MCHC 34.5 (31.0-36.0) g/dl RDW 12.7 (11.0-16.0) % Plt Count 182 (160-400) X10*3/uL MPV 10.6 (9.4-12.4) fL Immature Gran % (Auto) 0.2 (0.0-0.4) % Neut % (Auto) 73.3 H (45-73) % Lymph % (Auto) 21.3 (20-40) % [place] % (Auto) 4.3 (2-11) % Eos % (Auto) 0.6 (0-4) % Baso % (Auto) 0.3 (0-2) % Lymph # (Auto) 1.4 (1.2-4.9) X10*3/uL [place] # (Auto) 0.3 (0.1-1.2) X10*3/uL Eos # (Auto) 0.0 (0.0-0.4) X10*3/uL Baso # (Auto) 0.0 (0.0-0.2) X10*3/uL Abs Immat Gran (auto) 0.01 (0.00-0.03) X10*3/uL Absolute Neuts (auto) 4.7 (2.0-8.3) x10*3/uL Absolute Nucleated RBC 0.000 (0.0-0.012) X10*3/uL Nucleated RBC % (auto) 0.0 (0.0-0.2) /100WBC ESR (0-15) MM/HR Sodium 139 (135-145) mmol/L Potassium 4.4 (3.3-5.1) mmol/L Chloride 102 (96-108) mmol/L Carbon Dioxide 30 H (22-29) mmol/L Anion Gap 11 L (12-20) BUN 9 (9-16) mg/dL Creatinine 0.76 (0.5-1.4) mg/dL Estim Creat Clear Calc 110.1 Estimated GFR > 60 Random Glucose 95 (60-115) mg/dL Calcium 10.3 H D (8.4-10.2) mg/dL Magnesium 2.0 (1.6-2.6) mg/dL Total Bilirubin 1.0 (0.0-1.0) mg/dL AST 36 D (5-37) U/L ALT 60 H (0-40) U/L Alkaline Phosphatase 77 D (39-117) U/L C-Reactive Protein (< or = 0.50) mg/dL Total Protein 8.1 H (6.5-8.0) g/dL Albumin 4.4 (3.5-5.0) g/dL Lipase 18 (8-78) U/L Urine Color Urine Appearance Urine pH (5.0-8.0) Ur Specific [place] (1.005-1.025) Urine Protein (NEG-TRACE) MG/DL Urine Glucose (UA) (NEG) MG/DL Urine Ketones (NEG) MG/DL Urine Blood (NEG) Urine Nitrite (NEG) Ur Leukocyte Esterase (NEG) COVID-19 (LONG) Negative (Negative) COVID-19 Clin Com See Note 09/18/21 09/18/21 09/18/21 Range/Units 11:33 11:33 11:37 WBC (4.8-10.8) X10*3/uL RBC (4.60-5.80) X10*6/uL Hgb (14.0-18.0) g/dl Hct (42.0-52.0) % MCV (80.0-98.0) fL MCH (27.0-33.0) pg MCHC (31.0-36.0) g/dl RDW (11.0-16.0) % Plt Count (160-400) X10*3/uL MPV (9.4-12.4) fL Immature Gran % (Auto) (0.0-0.4) % Neut % (Auto) (45-73) % Lymph % (Auto) (20-40) % [place] % (Auto) (2-11) % Eos % (Auto) (0-4) % Baso % (Auto) (0-2) % Lymph # (Auto) (1.2-4.9) X10*3/uL [place] # (Auto) (0.1-1.2) X10*3/uL Eos # (Auto) (0.0-0.4) X10*3/uL Baso # (Auto) (0.0-0.2) X10*3/uL Abs Immat Gran (auto) (0.00-0.03) X10*3/uL Absolute Neuts (auto) (2.0-8.3) x10*3/uL Absolute Nucleated RBC (0.0-0.012) X10*3/uL Nucleated RBC % (auto) (0.0-0.2) /100WBC ESR 11 (0-15) MM/HR Sodium (135-145) mmol/L Potassium (3.3-5.1) mmol/L Chloride (96-108) mmol/L Carbon Dioxide (22-29) mmol/L Anion Gap (12-20) BUN (9-16) mg/dL Creatinine (0.5-1.4) mg/dL Estim Creat Clear Calc Estimated GFR Random Glucose (60-115) mg/dL Calcium (8.4-10.2) mg/dL Magnesium (1.6-2.6) mg/dL Total Bilirubin (0.0-1.0) mg/dL AST (5-37) U/L ALT (0-40) U/L Alkaline Phosphatase (39-117) U/L C-Reactive Protein 0.10 (< or = 0.50) mg/dL Total Protein (6.5-8.0) g/dL Albumin (3.5-5.0) g/dL Lipase (8-78) U/L Urine Color YELLOW Urine Appearance CLEAR Urine pH 6.0 (5.0-8.0) Ur Specific [place] 1.025 (1.005-1.025) Urine Protein NEG (NEG-TRACE) MG/DL Urine Glucose (UA) NEG (NEG) MG/DL Urine Ketones NEG (NEG) MG/DL Urine Blood NEG (NEG) Urine Nitrite NEG (NEG) Ur Leukocyte Esterase NEG (NEG) COVID-19 (LONG) (Negative) COVID-19 Clin Com Imaging Data CT scan - abdomen: Radiologist's impression: FINDINGS: LUNG BASES: The visualized lung bases are unremarkable.? LIVER, GALLBLADDER, AND BILIARY TREE: The liver is normal in size, shape, and attenuation. No focal hepatic lesion or biliary ductal dilatation is present. Cholecystectomy.? PANCREAS: Unremarkable.? SPLEEN: Unremarkable.? ADRENAL GLANDS: Unremarkable.? KIDNEYS AND URETERS: The kidneys are normal in size, shape, and attenuation. No hydronephrosis, hydroureter, or calculi seen. No perinephric stranding. ? BLADDER: Unremarkable.? GASTROINTESTINAL TRACT: The stomach is unremarkable. Status post total colectomy with J-pouch. Stool within the reservoir. Normal caliber small bowel. No obstruction. No inflammatory change. No free air or free fluid.? ABDOMINAL WALL: No significant hernia is appreciated.? LYMPH NODES: Normal. VASCULAR: Unremarkable. PELVIC VISCERA: The prostate and seminal vesicles are unremarkable.? OSSEOUS STRUCTURES: No acute or suspicious osseous abnormality. Mild degenerative changes of the spine.? CT/CT abdomen pelvis w con IMPRESSION: No acute findings of the abdomen or pelvis. Status post total colectomy. No bowel obstruction. No inflammation.? ? Fleischner guidelines were followed. Discharge Plan Discharge Clinical Impression: Crohn's disease Patient Disposition: Admitted As Inpatient
[2021-09-18 11:38] LABS: MANUAL DIFF FLAG NO
[2021-09-18] MEDS: 0.9 % Sodium Chloride 1,000 ML 999 ML IV (11:41)
[2021-09-18 11:42] LABS: Basophils Percent Auto 0.3 % (0-2); Eosinophils Percent Auto 0.6 % (0-4); Hematocrit 44.4 % (42.0-52.0); Hemoglobin 15.3 g/dl (14.0-18.0); Imm Gran Abs Auto 0.01 X10*3/uL (0.00-0.03); Imm Gran Pct Auto 0.2 % (0.0-0.4); Lymphocytes Absolute Auto 1.4 X10*3/uL (1.2-4.9); Lymphocytes Percent Auto 21.3 % (20-40); Mean Corpuscular HGB Conc 34.5 g/dl (31.0-36.0); Mean Corpuscular Volume 92.9 fL (80.0-98.0); Mean Platelet Volume 10.6 fL (9.4-12.4); Monocytes Absolute Auto 0.3 X10*3/uL (0.1-1.2); Monocytes Percent Auto 4.3 % (2-11); Neutrophils Absolute Auto 4.7 x10*3/uL (2.0-8.3); Neutrophils Percent Auto 73.3 % (45-73); Platelet Count 182 X10*3/uL (160-400); Red Blood Count 4.78 X10*6/uL (4.60-5.80); Red Cell Distribution Width 12.7 % (11.0-16.0); White Blood Count 6.3 X10*3/uL (4.8-10.8)
[2021-09-18] MEDS: diphenhydrAMINE HCL 50 MG/ML VIAL 25 MG IVPUSH ×2 (11:42→14:45)
[2021-09-18] MEDS: HYDROmorphone HCl 0.5 MG/0.5 ML SYRINGE IVPUSH ×2 (11:42→12:43)
[2021-09-18] MEDS: ondansetron HCL 4 MG/2 ML VIAL IVPUSH (11:43)
[2021-09-18 12:00] LABS: Appearance Urine CLEAR; Color Urine YELLOW; Glucose Urine UA NEG (NEG); Leukocyte Esterase Urine NEG (NEG); Nitrite Urine NEG (NEG); Specific Gravity - Urine 1.025 (1.005-1.025); Urine Blood NEG (NEG); Urine Ketones NEG (NEG); Urine Protein NEG (NEG-TRACE)
[2021-09-18 12:05] LABS: Alanine Aminotransferase 60 U/L (0-40); Albumin Level 4.4 g/dL (3.5-5.0); Alkaline Phosphatase 77 U/L (39-117); Anion Gap 11 (12-20); Aspartate Amino Transferase 36 U/L (5-37); Blood Urea Nitrogen 9 mg/dL (9-16); Calcium 10.3 mg/dL (8.4-10.2); Carbon Dioxide 30 mmol/L (22-29); Chloride 102 mmol/L (96-108); Creatinine Clr Calc Pharmacy 110.1; Estimated Glomerular Filt Rate > 60; Glucose Random 95 mg/dL (60-115); Lipase 18 U/L (8-78); Potassium 4.4 mmol/L (3.3-5.1); Sodium 139 mmol/L (135-145); Total Protein 8.1 g/dL (6.5-8.0)
[2021-09-18 12:22] LABS: Erythrocyte Sedimentation Rate 11 MM/HR (0-15)
[2021-09-18 12:36] LABS: COVID-19 Test Negative (Negative); IDNOW Serial# 55D5AD1C
[2021-09-18 12:41] VITALS: BP 122/78; PULSE 88; O2SAT 99
[2021-09-18] MEDS: iohexoL 350 MG/ML 100 ML INFUS..BTL IV (13:28)
[2021-09-18] MEDS: methylPREDNISolone Sod Succ 125 MG/2 ML VIAL 60 MG IVPUSH ×2 (14:45→21:46)
[2021-09-18] MEDS: LORazepam 2 MG/ML VIAL 1 MG IVPUSH (14:46)
[2021-09-18 15:11] VITALS: BP 116/83; PULSE 74; RESP 16; TEMP 36.6; O2SAT 99
--- NOTE | 2021-09-18 15:34 | P.HPHOSP_ITS ---
History of Present Illness Date of Service: 09/18/21 Chief Complaint: abdominal pain Patient is a 40-year-old male with a past medical history of Crohn's disease and partial colon resection and subsequent bowel obstructions.? He presents today for evaluation of abdominal pain with vomiting and diarrhea.? He states over the past 3 days he is experiencing diffuse abdominal pain but particularly worse on the right that has been increasingly worse.? He has been vomiting and having multiple episodes of diarrhea each day.? Today his vomit is red tinged, and he reports bright red blood in his stools also.? He is concerned that his abdomen is very distended.? He contact his primary care provider who advised him to come to the emergency department.? Patient moved recently from [place], [place] and has not yet established care with a marriage therapist in the area.? Reports that he took his Humira today. He reports he has an upcoming appointment 09/24/2021. Review of Systems Review of Systems: Denies chest pain Denies shortness of breath Admits to crampy abdominal pressure throughout his whole abdomen [facility] Medical History (Updated 09/18/21 @ 15:37 by Luis Woods DO) Acute Crohn's disease Partial small bowel obstruction Social History Alcohol intake: never Patient Tobacco Use Status: Never used Tobacco Use of substances other than those prescribed or required for medical reasons: No Advance Directives: No Advance Directives Information Provided: No Meds Allergies Allergy/AdvReac Type Severity Reaction Status Date / Time ondansetron [Ondansetron] Allergy Mild HIVES Verified 09/18/21 11:39 Sulfa (Sulfonamide Allergy Mild UNKNOWN Verified 09/18/21 11:39 Antibiotics) ketorolac Allergy Unknown Unknown Verified 09/18/21 11:39 meperidine [Demerol] Allergy Unknown Unknown Verified 09/18/21 11:39 metoclopramide [Reglan] Allergy Unknown Unknown Verified 09/18/21 11:39 morphine [Morphine] Allergy Unknown RASH Verified 09/18/21 11:39 ketamine Allergy Unknown Verified 09/18/21 11:39 From REGLAN Allergy Mild PT UNSURE Uncoded 09/18/21 11:39 BUT STATES HE IS ALLERGIC Compro Allergy Unknown Unknown Uncoded 09/18/21 11:39 From COMPAZINE Allergy Unknown ITCHING Uncoded 09/18/21 11:39 From Demerol Allergy Unknown ITCHY HIVES Uncoded 09/18/21 11:39 From Toradol Allergy Unknown UNK Uncoded 09/18/21 11:39 Active Medications: Current Medications Enoxaparin Sodium (Enoxaparin Sodium 40 Mg/0.4 Ml Syringe) 40 mg SUBCUT Q24H DULCE MARIA Hydromorphone HCl (Hydromorphone Hcl 1 Mg/Ml Syringe) 1 mg IVPUSH Q3H PRN; Protocol PRN Reason: Pain, Severe (Pain Scale 7-10) Methylprednisolone Sodium Succinate (Methylprednisolone Sod Succ 125 Mg/2 Ml Vial) 60 mg IVPUSH Q8H DULCE MARIA Oxycodone HCl (Oxycodone Hcl Immed Release 5 Mg Tablet) 10 mg PO Q3H PRN PRN Reason: Pain, Moderate (Pain Scale 4-6 Pharmacy Consult (Consult Rx Perform Med Rec) 1 each MISCELLANE ONCE PRN PRN Reason: Consult order Sodium Chloride (0.9 % Sodium Chloride Flush 3 Ml Syringe) 3 ml IVFLUSH QSHIFT DULCE MARIA Home Medications Medication Instructions Recorded Confirmed Last Taken Type adalimumab 40 mg/0.4 mL 40 mg SUBCUT QWEEK 08/19/21 08/19/21 Unknown History subcutaneous pen kit (Humira(CF) Pen) clonazepam 1 mg tablet 1 tab PO BID PRN 08/19/21 08/19/21 Unknown History ferrous sulfate 325 mg (65 mg 1 tab PO Q OTHER DAY 08/19/21 08/19/21 Unknown History iron) tablet,delayed release loratadine 10 mg tablet 1 tab PO DAILY PRN 08/19/21 08/19/21 Unknown History magnesium oxide 400 mg (241.3 mg 1 tab PO BEDTIME 08/19/21 08/19/21 Unknown History magnesium) tablet multivitamin with folic acid 400 1 tab PO DAILY 08/19/21 08/19/21 Unknown History mcg tablet (Daily-Davis (with folic acid)) omeprazole 20 mg capsule,delayed 1 cap PO BID 08/19/21 08/19/21 Unknown History release propranolol 10 mg tablet 1 tab PO BID 08/19/21 08/19/21 Unknown History riboflavin (vitamin B2) 100 mg 2 tab PO BID 08/19/21 08/19/21 Unknown History tablet (Vitamin B-2) sumatriptan succinate 100 mg tablet 100 mg PO DAILY PRN 08/19/21 08/19/21 Unknown History tizanidine 4 mg tablet 1 - 1.5 tab PO BEDTIME 08/19/21 08/19/21 Unknown History zolpidem 10 mg tablet 1 tab PO BEDTIME 08/19/21 08/19/21 Unknown History Physical Exam Vital Signs and Narrative: Vital Signs: Last Vital Signs Temp 98 F 09/18/21 15:11 Pulse 74 09/18/21 15:11 Resp 16 09/18/21 15:11 BP 116/83 09/18/21 15:11 Pulse Ox 99 09/18/21 15:11 BMI result Body Mass Index 26.6 Const: Other: Uncomfortable appearing lying in bed Resp: Other: Clear to auscultation bilaterally no rales rhonchi or wheezes Cardio: Other: No S4; positive S1-S2; no S3 murmurs upper gallops GI: Other: Abdomen distended mildly tympanitic with quiet bowel sounds throughout. The some mild voluntary guarding however no rebound Extrem: Other: No edema bilaterally Results Labs CBC and Chem 7: 09/18/21 11:33 09/18/21 11:33 Labs: Laboratory Results - last 24 hr 09/18/21 09/18/21 09/18/21 11:33 11:33 11:33 MCV 92.9 MCH 32.0 MCHC 34.5 RDW 12.7 Plt Count 182 MPV 10.6 Immature Gran % (Auto) 0.2 Neut % (Auto) 73.3 H Lymph % (Auto) 21.3 [place] % (Auto) 4.3 Eos % (Auto) 0.6 Baso % (Auto) 0.3 Lymph # (Auto) 1.4 [place] # (Auto) 0.3 Eos # (Auto) 0.0 Baso # (Auto) 0.0 Abs Immat Gran (auto) 0.01 Absolute Neuts (auto) 4.7 Absolute Nucleated RBC 0.000 Nucleated RBC % (auto) 0.0 ESR Anion Gap 11 L Estim Creat Clear Calc 110.1 Estimated GFR > 60 Random Glucose 95 Calcium 10.3 H D Magnesium 2.0 Total Bilirubin 1.0 AST 36 D ALT 60 H Alkaline Phosphatase 77 D C-Reactive Protein Total Protein 8.1 H Albumin 4.4 Lipase 18 Urine Color Urine Appearance Urine pH Ur Specific [place] Urine Protein Urine Glucose (UA) Urine Ketones Urine Blood Urine Nitrite Ur Leukocyte Esterase COVID-19 (LONG) Negative COVID-19 Clin Com See Note 09/18/21 09/18/21 09/18/21 11:33 11:33 11:37 MCV MCH MCHC RDW Plt Count MPV Immature Gran % (Auto) Neut % (Auto) Lymph % (Auto) [place] % (Auto) Eos % (Auto) Baso % (Auto) Lymph # (Auto) [place] # (Auto) Eos # (Auto) Baso # (Auto) Abs Immat Gran (auto) Absolute Neuts (auto) Absolute Nucleated RBC Nucleated RBC % (auto) ESR 11 Anion Gap Estim Creat Clear Calc Estimated GFR Random Glucose Calcium Magnesium Total Bilirubin AST ALT Alkaline Phosphatase C-Reactive Protein 0.10 Total Protein Albumin Lipase Urine Color YELLOW Urine Appearance CLEAR Urine pH 6.0 Ur Specific [place] 1.025 Urine Protein NEG Urine Glucose (UA) NEG Urine Ketones NEG Urine Blood NEG Urine Nitrite NEG Ur Leukocyte Esterase NEG COVID-19 (LONG) COVID-19 Clin Com Imaging Radiologist's Impressions: Impressions Abdomen/Pelvis CT 09/18/21 13:26 IMPRESSION: No acute findings of the abdomen or pelvis. Status post total colectomy. No bowel obstruction. No inflammation. Fleischner guidelines were followed. Assessment and Plan (1) Abdominal pain: Status: Acute (2) Acute Crohn's disease: Status: Acute Plan 40-year-old male with known history of Crohn's disease status post partial colon resection with subsequent bowel obstructions presents today with abdominal pain vomiting and diarrhea. States over the past 3 days experiencing diffuse abdominal pain worse on the right side similar to past Crohn's flares. He does notes episode of vomiting and diarrhea. States he took his Humira today. In the emergency room, CT of abdomen and pelvis failed to demonstrate bowel obstructions or acute pathology. Case discussed with GI. .. Admit IV fluids clear liquids and IV steroids 1. Acute Crohn's flare -admit GM after -maintenance IV fluids -pulse dose Solu-Medrol -pain management with Dilaudid alternating with oxycodone -GI consult in a.m. 2. Anxiety -continue clonazepam 1 mg b.i.d. p.r.n. 3. GERD -PPI in a.m., H2 RA in p.m. Full code Lovenox Patient requires inpatient hospitalization secondary to severe Crohn's flare and inability to hold down p.o.. He will be admitted with IV fluids and pain control Quality Stroke Does the patient have a stroke diagnosis?: No VTE Prior VTE?: No VTE Risk Level:: Medical - moderate - high VTE Device Contraindication: Treatment Not Indicated VTE Drug Contraindication: N/A - Med Ordered
[2021-09-18] MEDS: Dextrose 5 % and 0.9 % NaCl 1,000 ML 125 ML IVCONT (15:49)
--- NOTE | 2021-09-18 16:16 | PHA.MEDREC ---
Pharmacy Consult ? Medication Reconciliation Pharmacy has completed the medication reconciliation. spoke with patient in ED.
[2021-09-18] MEDS: Enoxaparin Sodium 40 MG/0.4 ML SYRINGE SUBCUT (16:24)
[2021-09-18] MEDS: HYDROmorphone HCl 1 MG/ML SYRINGE IVPUSH ×3 (16:25→21:47)
--- NOTE | 2021-09-18 16:34 | P.CNGI_ITS ---
History of Present Illness Data of Consult Service Date: 09/18/21 Requesting physician: Luis Woods Primary Care Provider: Manuel Harris MD [facility] Reason for consult: ? IBD flare 40 YM with IBD (?Crohn's disease/UC) seen at [facility] today with abdominal pain, vomiting and diarrhea: Patient is a 40-year-old male with a past medical history of Crohn's disease and partial colon resection and subsequent bowel obstructions.? He presents today for evaluation of abdominal pain with vomiting and diarrhea.? He states over the past 3 days he is experiencing diffuse abdominal pain but particularly worse on the right that has been increasingly worse.? He has been vomiting and having multiple episodes of diarrhea each day.? Today his vomit is red tinged, and he reports bright red blood in his stools also.? He is concerned that his abdomen is very distended.? He contact his primary care provider who advised him to come to the emergency department.? Patient moved recently from [place], [place] and has not yet established care with a clerk supervisor in the area.? Reports that he took his Humira today. Pt has had 2 prior ER visits for similar symptoms over the past 4 weeks Pt is scheduled to see Dr Espinosa He reports he has an upcoming appointment 09/26/2021. Pt was diagnosed with UC and underwent a total colectomy with colostomy and J Pouch in 2006 at in [place]. Colostomy was reversed after 6 months. He was subsequently diagnosed with CD ? in 2019 and had 2 additional surgeries since then - exploratory lap with lysis of adhesions for SBO - last surgery was 7 yrs ago. Pt has been on Humira 40 mg every week for the past 2 yrs with intermittent flares. He has noted worsening generalized abd pain with nausea and vomiting for the past 4 days He admits to passing gas. Abd pain improves partially after he has a BM and after passing gas. He denies fever, chills or sweating Patient denies symptoms of heartburn, dysphagia. He has 10-11 loose to watery BMs a day with intermittent blood mixed with stools He admits to loosing 25 lbs over the past year. Pt denies mouth ulcers, jt pains, skin rash or eye problems Patient denies major cardiac or pulmonary problems and admits to sleep apnea Denies being on chronic anticoagulation. 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 IMAGING STUDIES: 09/18/[address] SCAN SHOWED: GASTROINTESTINAL TRACT: The stomach is unremarkable. Status post total colectomy with J-pouch. Stool within the reservoir. Normal caliber small bowel. No obstruction. No inflammatory change. No free air or free fluid.? Review of Systems Review of Systems: Denies chest pain Denies shortness of breath Admits to crampy abdominal pressure throughout his whole abdomen PMFSH Past Medical History Medical History (Updated 09/26/21 @ 11:24 by Kyle Espinosa MD) Acute Crohn's disease Hx of ulcerative colitis Partial small bowel obstruction Family History Family History (Updated 09/26/21 @ 11:00 by FRANCO Guadalupe) Mother HTN (hypertension) Surgical History Surgical History (Updated 09/26/21 @ 11:00 by FRANCO Guadalupe) History of esophagogastroduodenoscopy (EGD) Hx of colonoscopy Social History Social History Household Members: Spouse and Children Housing: House Do you presently have visiting nurse or other home services: No Alcohol intake: never Patient Tobacco Use Status: Never used Tobacco service: No Current occupational status: disabled Meds Allergies Allergy/AdvReac Type Severity Reaction Status Date / Time ondansetron [Ondansetron] Allergy Mild HIVES Verified 09/26/21 10:58 Sulfa (Sulfonamide Allergy Mild UNKNOWN Verified 09/26/21 10:58 Antibiotics) ketorolac Allergy Unknown Unknown Verified 09/26/21 10:58 meperidine [Demerol] Allergy Unknown Unknown Verified 09/26/21 10:58 metoclopramide [Reglan] Allergy Unknown Unknown Verified 09/26/21 10:58 morphine [Morphine] Allergy Unknown RASH Verified 09/26/21 10:58 ketamine Allergy Unknown Verified 09/26/21 10:58 From REGLAN Allergy Mild PT UNSURE Uncoded 09/26/21 10:58 BUT STATES HE IS ALLERGIC Compro Allergy Unknown Unknown Uncoded 09/26/21 10:58 From COMPAZINE Allergy Unknown ITCHING Uncoded 09/26/21 10:58 From Demerol Allergy Unknown ITCHY HIVES Uncoded 09/26/21 10:58 From Toradol Allergy Unknown UNK Uncoded 09/26/21 10:58 Active Medications: Current Medications Enoxaparin Sodium (Enoxaparin Sodium 40 Mg/0.4 Ml Syringe) 40 mg SUBCUT Q24H [facility] Last Admin: 09/18/21 16:24 Dose: 40 mg Documented by: Hydromorphone HCl (Hydromorphone Hcl 1 Mg/Ml Syringe) 1 mg IVPUSH Q3H PRN; Protocol PRN Reason: Pain, Severe (Pain Scale 7-10) Last Admin: 09/18/21 16:25 Dose: 1 mg Documented by: Dextrose/Sodium Chloride (D5ns) 1,000 mls @ 125 mls/hr IVCONT .Q8H [facility] Last Admin: 09/18/21 15:49 Dose: 125 mls/hr Documented by: Methylprednisolone Sodium Succinate (Methylprednisolone Sod Succ 125 Mg/2 Ml Vial) 60 mg IVPUSH Q8H [facility] Oxycodone HCl (Oxycodone Hcl Immed Release 5 Mg Tablet) 10 mg PO Q3H PRN PRN Reason: Pain, Moderate (Pain Scale 4-6 Pharmacy Consult (Consult Rx Perform Med Rec) 1 each MISCELLANE ONCE PRN PRN Reason: Consult order Sodium Chloride (0.9 % Sodium Chloride Flush 3 Ml Syringe) 3 ml IVFLUSH QSHIFT [facility] Last Admin: 09/18/21 16:25 Dose: Not Given Documented by: Home Medications Medication Instructions Recorded Confirmed Last Taken Type adalimumab 40 mg/0.4 mL 40 mg SUBCUT TH@0900 08/19/21 09/18/21 09/18/21 History subcutaneous pen kit (Humira(CF) Pen) clonazepam 1 mg tablet 1 tab PO BID 08/19/21 09/18/21 Unknown History loratadine 10 mg tablet 1 tab PO DAILY PRN 08/19/21 09/18/21 Unknown History multivitamin with folic acid 400 1 tab PO DAILY 08/19/21 09/18/21 09/18/21 History mcg tablet (Daily-Davis (with folic acid)) omeprazole 20 mg capsule,delayed 40 cap PO DAILY@0630 08/19/21 09/18/21 Unknown History release propranolol 10 mg tablet 1 tab PO BID 08/19/21 09/18/21 09/18/21 History riboflavin (vitamin B2) 100 mg 2 tab PO BID 08/19/21 09/18/21 09/18/21 History tablet (Vitamin B-2) sumatriptan succinate 100 mg tablet 100 mg PO DAILY PRN 08/19/21 09/18/21 Unknown History tizanidine 4 mg tablet 1.5 tab PO BEDTIME PRN 08/19/21 09/18/21 Unknown History zolpidem 10 mg tablet 1 tab PO BEDTIME 08/19/21 09/18/21 09/17/21 History hydrocortisone 1 % topical cream 1 appl TOPICAL BID 09/18/21 09/18/21 09/18/21 History tramadol 50 mg tablet 50 mg PO Q12H PRN 09/18/21 09/18/21 Unknown History magnesium oxide 400 mg (241.3 mg 400 mg PO DAILY 09/26/21 Unknown History magnesium) tablet Physical Exam Vital Signs: Vital Signs: Last Vital Signs Temp 98 F 09/18/21 15:11 Pulse 74 09/18/21 15:11 Resp 16 09/18/21 15:11 BP 116/83 09/18/21 15:11 Pulse Ox 99 09/18/21 15:11 BMI result Body Mass Index 26.6 Const: General: no acute distress and ill appearing Nutritional Appearance: overweight Orientation/consciousness: patient oriented x3 Limitations: no limitations HENMT: Head: Yes normal to inspection Ears: hearing grossly normal bilaterally Mouth: Normal oral and palatal mucosa present Eyes: Sclerae: sclerae normal Pupils: Equal, round and reactive pupils present Neck: Neck: Yes normal visual inspection Chest: Chest palpation & inspection: normal inspection of the chest Resp: Effort & Inspection: normal respiratory effort Auscultation: clear to auscultation bilaterally Cardio: Palpation: normal PMI Rate: regular rate Rhythm: regular rhythm Heart sounds: S1 normal heart sound present, S2 normal heart sound present and no murmurs GI: Inspection: Yes scar (healed midline scar) Palpation (GI): Soft to palpation, Tenderness to palpation present (GI) (Mild to moderate diffuse tenderness) and No hepatosplenomegaly present Auscultation: normal bowel sounds Rectal Exam - Male: Yes deferred Skin: General skin exam: no rashes or lesions noted Neuro: General: patient oriented x3, gait normal and moves all extremities Cranial nerves: Yes Equal, round and reactive pupils present Psych: Appearance: grossly normal Mental Status: mental status grossly normal Results Labs CBC & Chem 7: 09/18/21 11:33 09/18/21 11:33 Labs: Short CBC 09/18/21 Range/Units 11:33 WBC 6.3 (4.8-10.8) X10*3/uL Hgb 15.3 (14.0-18.0) g/dl Hct 44.4 (42.0-52.0) % Plt Count 182 (160-400) X10*3/uL BMP 09/18/21 11:33 Sodium 139 Potassium 4.4 Chloride 102 Carbon Dioxide 30 H BUN 9 Creatinine 0.76 Calcium 10.3 H D Liver Function 09/18/21 Range/Units 11:33 Total Bilirubin 1.0 (0.0-1.0) mg/dL AST 36 D (5-37) U/L ALT 60 H (0-40) U/L Alkaline Phosphatase 77 D (39-117) U/L Albumin 4.4 (3.5-5.0) g/dL Urine 09/18/21 Range/Units 11:37 Urine Color YELLOW Urine Appearance CLEAR Urine pH 6.0 (5.0-8.0) Ur Specific [place] 1.025 (1.005-1.025) Urine Protein NEG (NEG-TRACE) MG/DL Urine Glucose (UA) NEG (NEG) MG/DL Assessment and Plan (1) Abdominal pain: Status: Resolved (2) Acute Crohn's disease: Status: Acute Plan 40 YM with known hx of Crohn's disease complicated by recurrent bowel obstru ction. Pt is status post total colectomy with J Pouch. He is on Humira 40 mg S/Q every week - last dose was earlier today. Abdominal pain and distension possibly related to Crohn's disease flare versus pouchitis. RECOMMENDATIONS: 1. Agree with IV pain medications, antiemetics and IV steroids. 2. Pt will be scheduled for a Flex Sigmoidoscopy (no prep) in the am to check for Pouchitis. Procedures Date of Service Date of Service: 09/18/21
[2021-09-18] MEDS: clonazePAM 1 MG TABLET PO (20:25)
[2021-09-18] MEDS: oxyCODONE HCl Immed Release 5 MG TABLET 10 MG PO ×2 (20:25→23:33)
[2021-09-18] MEDS: Propranolol HCL 10 MG TABLET PO (21:47)
[2021-09-18] MEDS: Zolpidem Tartrate 5 MG TABLET PO (21:50)
[2021-09-18 22:00] VITALS: BP 117/83; PULSE 108; RESP 18; TEMP 37.3; O2SAT 94
[2021-09-19] MEDS: Dextrose 5 % and 0.9 % NaCl 1,000 ML 125 ML IVCONT ×2 (00:21→08:03)
[2021-09-19 01:29] VITALS: BMI 27.6
--- NOTE | 2021-09-19 01:52 | PC.NURSE ---
Pt being transferred to room 479. Report given to JULAINN Mattson. Pt medicated for pain prior to transfer-Nguyen aware. Dr Rocha notified that patient is itchy all over and would like an order for Benardyl.
[2021-09-19] MEDS: HYDROmorphone HCl 1 MG/ML SYRINGE IVPUSH ×3 (01:59→09:51)
[2021-09-19] MEDS: 0.9 % Sodium Chloride Flush 3 ML SYRINGE IVFLUSH ×2 (02:01→08:03)
[2021-09-19] MEDS: diphenhydrAMINE HCL 50 MG/ML VIAL 25 MG IM (02:55)
[2021-09-19 03:19] VITALS: BMI 27.1
[2021-09-19] MEDS: oxyCODONE HCl Immed Release 5 MG TABLET 10 MG PO ×3 (03:24→14:52)
[2021-09-19 03:51] VITALS: BP 134/74; PULSE 98; RESP 20; TEMP 36.9; O2SAT 94
[2021-09-19] MEDS: methylPREDNISolone Sod Succ 125 MG/2 ML VIAL 60 MG IVPUSH ×2 (06:20→14:52)
[2021-09-19 08:00] VITALS: BP 108/67; PULSE 95; RESP 18; TEMP 37.1; O2SAT 94
[2021-09-19] MEDS: clonazePAM 1 MG TABLET PO (08:01)
[2021-09-19] MEDS: Propranolol HCL 10 MG TABLET PO (08:01)
[2021-09-19] MEDS: Multivitamin TABLET 1 TAB PO (08:01)
--- NOTE | 2021-09-19 09:26 | MHC.CM.PN ---
IMM 09/19/21 Male 40 DX Chrons exzcerbation. He lives with his family. He is independent with all functional mobility. DP is home no services. Patient understands that CM will set up Post hospital services, if needs change . Family will provide transportation.
[2021-09-19] MEDS: diphenhydrAMINE HCL 25 MG TABLET PO (09:51)
--- NOTE | 2021-09-19 11:47 | MHC.CM.PN ---
IMM 09/19/21 Male 40 DX Chrons exacerbation. Per MD rounds Patient will discharge home today with family support and transportation.
[2021-09-19 12:00] VITALS: BP 110/65; PULSE 91; RESP 18; TEMP 37.4; O2SAT 93
--- NOTE | 2021-09-19 12:57 | P.CONAN_ITS ---
[facility] Active Problems Active Problems: All Active Problems (Updated 09/18/21 @ 15:37 by Luis Woods DO) Acute Crohn's disease (Acute) Abdominal pain (Acute) Past Medical History Medical History (Updated 09/18/21 @ 15:37 by Luis Woods DO) Acute Crohn's disease Partial small bowel obstruction Family History Family history of problems with anesthesia: No Surgical History History of Problems with Anesthesia: No Social History Social History Household Members: Spouse and Children Housing: House Do you presently have visiting nurse or other home services: No Alcohol intake: never Patient Tobacco Use Status: Never used Tobacco service: No Current occupational status: disabled Meds Allergies Allergy/AdvReac Type Severity Reaction Status Date / Time ondansetron [Ondansetron] Allergy Mild HIVES Verified 09/18/21 11:39 Sulfa (Sulfonamide Allergy Mild UNKNOWN Verified 09/18/21 11:39 Antibiotics) ketorolac Allergy Unknown Unknown Verified 09/18/21 11:39 meperidine [Demerol] Allergy Unknown Unknown Verified 09/18/21 11:39 metoclopramide [Reglan] Allergy Unknown Unknown Verified 09/18/21 11:39 morphine [Morphine] Allergy Unknown RASH Verified 09/18/21 11:39 ketamine Allergy Unknown Verified 09/18/21 11:39 From REGLAN Allergy Mild PT UNSURE Uncoded 09/18/21 11:39 BUT STATES HE IS ALLERGIC Compro Allergy Unknown Unknown Uncoded 09/18/21 11:39 From COMPAZINE Allergy Unknown ITCHING Uncoded 09/18/21 11:39 From Demerol Allergy Unknown ITCHY HIVES Uncoded 09/18/21 11:39 From Toradol Allergy Unknown UNK Uncoded 09/18/21 11:39 Active Medications: Current Medications Clonazepam (Clonazepam 1 Mg Tablet) 1 mg PO BID [facility] Last Admin: 09/19/21 08:01 Dose: 1 mg Documented by: Diphenhydramine HCl (Diphenhydramine Hcl 25 Mg Tablet) 25 mg PO Q4H PRN PRN Reason: Itching Last Admin: 09/19/21 09:51 Dose: 25 mg Documented by: Enoxaparin Sodium (Enoxaparin Sodium 40 Mg/0.4 Ml Syringe) 40 mg SUBCUT Q24H [facility] Last Admin: 09/18/21 16:24 Dose: 40 mg Documented by: Hydrocortisone (Hydrocortisone 1 % Cream 28.35 Gm Tube) 1 appl TOPICAL BID [facility]; Protocol Last Admin: 09/19/21 08:04 Dose: Not Given Documented by: Hydromorphone HCl (Hydromorphone Hcl 1 Mg/Ml Syringe) 1 mg IVPUSH Q3H PRN; Protocol PRN Reason: Pain, Severe (Pain Scale 7-10) Last Admin: 09/19/21 09:51 Dose: 1 mg Documented by: Dextrose/Sodium Chloride (D5ns) 1,000 mls @ 125 mls/hr IVCONT .Q8H [facility] Last Admin: 09/19/21 08:03 Dose: 125 mls/hr Documented by: Promethazine HCl 6.25 mg/ (Sodium Chloride) 50.25 mls @ 201 mls/hr IV Q4H PRN PRN Reason: Nausea and Vomiting Last Infusion: 09/19/21 08:39 Dose: Infused Documented by: Lactated Ringer's (Lr) 1,000 mls @ 50 mls/hr IVCONT .Q20H [facility] Loratadine (Loratadine 10 Mg Tablet) 10 mg PO DAILY PRN PRN Reason: Allergy Symptoms Methylprednisolone Sodium Succinate (Methylprednisolone Sod Succ 125 Mg/2 Ml Vial) 60 mg IVPUSH Q8H [facility] Last Admin: 09/19/21 06:20 Dose: 60 mg Documented by: Multivitamins/Vitamin C (Multivitamin Tablet) 1 tab PO DAILY [facility] Last Admin: 09/19/21 08:01 Dose: 1 tab Documented by: Oxycodone HCl (Oxycodone Hcl Immed Release 5 Mg Tablet) 10 mg PO Q3H PRN PRN Reason: Pain, Moderate (Pain Scale 4-6 Last Admin: 09/19/21 08:01 Dose: 10 mg Documented by: Pharmacy Consult (Consult Rx Perform Med Rec) 1 each MISCELLANE ONCE PRN PRN Reason: Consult order Propranolol HCl (Propranolol Hcl 10 Mg Tablet) 10 mg PO BID [facility]; Protocol Last Admin: 09/19/21 08:01 Dose: 10 mg Documented by: Sodium Chloride (0.9 % Sodium Chloride Flush 3 Ml Syringe) 3 ml IVFLUSH QSHIFT [facility] Last Admin: 09/19/21 08:03 Dose: 3 ml Documented by: Sumatriptan Succinate (Sumatriptan Succinate 100 Mg Tablet) 100 mg PO DAILY PRN PRN Reason: Migraine Headache Tizanidine HCl (Tizanidine Hcl 4 Mg Tablet) 6 mg PO BEDTIME PRN PRN Reason: Muscle Spasm Tramadol HCl (Tramadol Hcl 50 Mg Tablet) 50 mg PO Q12H PRN PRN Reason: Pain (Scale Score 4-6) Zolpidem Tartrate (Zolpidem Tartrate 5 Mg Tablet) 5 mg PO BEDTIME [facility] Last Admin: 09/18/21 21:50 Dose: 5 mg Documented by: Home Medications Medication Instructions Recorded Confirmed Last Taken Type adalimumab 40 mg/0.4 mL 40 mg SUBCUT TH@0900 08/19/21 09/18/21 09/18/21 History subcutaneous pen kit (Humira(CF) Pen) clonazepam 1 mg tablet 1 tab PO BID 08/19/21 09/18/21 Unknown History loratadine 10 mg tablet 1 tab PO DAILY PRN 08/19/21 09/18/21 Unknown History multivitamin with folic acid 400 1 tab PO DAILY 08/19/21 09/18/21 09/18/21 History mcg tablet (Daily-Davis (with folic acid)) omeprazole 20 mg capsule,delayed 40 cap PO DAILY@0630 08/19/21 09/18/21 Unknown History release propranolol 10 mg tablet 1 tab PO BID 08/19/21 09/18/21 09/18/21 History riboflavin (vitamin B2) 100 mg 2 tab PO BID 08/19/21 09/18/21 09/18/21 History tablet (Vitamin B-2) sumatriptan succinate 100 mg tablet 100 mg PO DAILY PRN 08/19/21 09/18/21 Unknown History tizanidine 4 mg tablet 1.5 tab PO BEDTIME PRN 08/19/21 09/18/21 Unknown History zolpidem 10 mg tablet 1 tab PO BEDTIME 08/19/21 09/18/21 09/17/21 History hydrocortisone 1 % topical cream 1 appl TOPICAL BID 09/18/21 09/18/21 09/18/21 History tramadol 50 mg tablet 50 mg PO Q12H PRN 09/18/21 09/18/21 Unknown History Exam Exam Date and Time: September 19, 2021 1257 Height,Weight and Vital Signs: Height 5 ft 5 in Weight 74 kg Last Vital Signs Temp 99.4 F 09/19/21 12:00 Pulse 91 09/19/21 12:00 Resp 18 09/19/21 12:00 BP 110/65 09/19/21 12:00 Pulse Ox 93 09/19/21 12:00 Pertinent Lab Results Pertinent Lab Results: Laboratory Tests 09/18/21 09/18/21 09/18/21 11:33 11:33 11:33 WBC 6.3 RBC 4.78 Hgb 15.3 Hct 44.4 MCV 92.9 MCH 32.0 MCHC 34.5 RDW 12.7 Plt Count 182 MPV 10.6 Immature Gran % (Auto) 0.2 Neut % (Auto) 73.3 H Lymph % (Auto) 21.3 [place] % (Auto) 4.3 Eos % (Auto) 0.6 Baso % (Auto) 0.3 Lymph # (Auto) 1.4 [place] # (Auto) 0.3 Eos # (Auto) 0.0 Baso # (Auto) 0.0 Abs Immat Gran (auto) 0.01 Absolute Neuts (auto) 4.7 Absolute Nucleated RBC 0.000 Nucleated RBC % (auto) 0.0 ESR Sodium 139 Potassium 4.4 Chloride 102 Carbon Dioxide 30 H Anion Gap 11 L BUN 9 Creatinine 0.76 Estim Creat Clear Calc 110.1 Estimated GFR > 60 Random Glucose 95 Calcium 10.3 H D Magnesium 2.0 Total Bilirubin 1.0 AST 36 D ALT 60 H Alkaline Phosphatase 77 D C-Reactive Protein Total Protein 8.1 H Albumin 4.4 Lipase 18 Urine Color Urine Appearance Urine pH Ur Specific [place] Urine Protein Urine Glucose (UA) Urine Ketones Urine Blood Urine Nitrite Ur Leukocyte Esterase COVID-19 (LONG) Negative COVID-19 Clin Com See Note 09/18/21 09/18/21 09/18/21 11:33 11:33 11:37 WBC RBC Hgb Hct MCV MCH MCHC RDW Plt Count MPV Immature Gran % (Auto) Neut % (Auto) Lymph % (Auto) [place] % (Auto) Eos % (Auto) Baso % (Auto) Lymph # (Auto) [place] # (Auto) Eos # (Auto) Baso # (Auto) Abs Immat Gran (auto) Absolute Neuts (auto) Absolute Nucleated RBC Nucleated RBC % (auto) ESR 11 Sodium Potassium Chloride Carbon Dioxide Anion Gap BUN Creatinine Estim Creat Clear Calc Estimated GFR Random Glucose Calcium Magnesium Total Bilirubin AST ALT Alkaline Phosphatase C-Reactive Protein 0.10 Total Protein Albumin Lipase Urine Color YELLOW Urine Appearance CLEAR Urine pH 6.0 Ur Specific [place] 1.025 Urine Protein NEG Urine Glucose (UA) NEG Urine Ketones NEG Urine Blood NEG Urine Nitrite NEG Ur Leukocyte Esterase NEG COVID-19 (LONG) COVID-19 Clin Com Airway Mallampati Class: II TM Dist: >3cm Neck ROM: Full Heart: rrr Lungs: cta Assessment and Plan Assessment Anesthesia Assessment: Anesthesia Plan Discussed and Chart Reviewed Final Anesthetic Review Family History of Problems with Anesthesia: No History of Problems with Anesthesia: No NPO: Yes ASA Class: II Final Preanesthetic Review: No Changes in Pt Med Stat, Meds/Allgs Chart Reviewed and Consent Obtained/Reviewed Patient Risk: Intermediate Procedure Risk: Intermediate Anesthetic Plan Anesthetic Plan: MAC: Disposition: Standard PACU
--- NOTE | 2021-09-19 12:58 | P.OP_ITS ---
Operative Note Operative Note Date of Service: 09/19/21 Narrative: Pre-op diagnosis: Crohn's disease status post total colectomy with J Pouch Post-op diagnosis:?other (Inactive Crohn's disease, normal J Pouch) Procedure: FLEXIBLE SIGMOIDOSCOPY TILL WITH BIOPSIES Consent: Indications for the procedure and potential complications of bleeding, perforation, reaction to medications and missed diagnosis were discussed with the patient and informed consent was obtained. Instrument: Olympus GIF H 190 L mid-size upper endoscope Monitoring: Vital signs and clinical assessment, intermittent blood pressure monitoring, continuous EKG monitoring, Pulse oximetry and Carbon Dioxide monitoring were done throughout the procedure. Procedure: The patient was placed in the left lateral decubitis position and pre-procedure medications were administered. After a digital rectal examination of the ano-rectum, the video upper endoscope was inserted into the rectum and advanced through the J pouch and TI to 50 cms. The colonoscope was slowly withdrawn in a retrograde panoramic fashion and the colon mucosa was carefully examined including a retroflexed view of the rectum. Findings and interventions are described below. Procedure Difficulty: Without difficulty Findings: Terminal Ileum: Normal mucosa till 50 cms - random biopsies were obtained J Pouch:? Normal mucosa - random biopsies were obtained. Ano-rectum: Small internal hemorrhoids Colon preparation:? Good after some irrigation. There was some liquid and semi-solid stool in the colon which was suctioned. Impression and Post Procedure Diagnosis: Flexible sigmoidoscopy Findings: Normal terminal ileal mucosa of till 50 cms - random biopsies were obtained J Pouch:? Normal mucosa without endoscopic evidence of pouchitis - random biopsies were obtained. Moderate hemorrhoids on retroflexed exam. Plan: Await pathology results Patient has an appointment on 09/26/21 in the GI Clinic with Dr Espinosa. Above findings were reviewed with the patient. Surgeon: Sharon Figueroa MD Anesthesia:?MAC (Helena Andrew, DEAN) Was an Graphite Grinder used for this Procedure?:?Yes Graphite Grinder:?Silav Lui Estimated blood loss (mL):?0 Pathology:?other (A- TERMINAL ILEUM- R/O CROHNS DX? B- J- POUCH BIOPSIES) Condition:?stable Disposition:?PACU
[2021-09-19 13:02] VITALS: BP 107/64; PULSE 94; RESP 16; TEMP 36.6; O2SAT 95
[2021-09-19] MEDS: Lactated Ringers 1,000 ML 50 ML IVCONT (13:09)
[2021-09-19 14:03] VITALS: BP 92/43; PULSE 89; RESP 18; TEMP 37.1; O2SAT 98
[2021-09-19 14:18] VITALS: BP 104/64; PULSE 87; RESP 18; TEMP 37.1; O2SAT 94
--- NOTE | 2021-09-19 16:08 | P.DS_ITS ---
DS: Providers Provider Date of Service: 09/19/21 Date of admission: 09/18/21 15:06 Date of discharge: 09/19/21 Primary care physician: Manuel Harris MD Consults: 09/18/21 15:40 Consult to Gastroenterology Routine Consulting Provider: Sharon Figueroa Reason for consultation: Acute Crohn's flare Has provider been notified: No DS: Diagnosis Discharge Diagnosis (1) Abdominal pain: Status: Acute (2) Acute Crohn's disease: Status: Acute DS: Summary Hospital Course Hospital Course: Patient is a 40-year-old male with a past medical history of Crohn's disease and partial colon resection and subsequent bowel obstructions.? He presents today for evaluation of abdominal pain with vomiting and diarrhea.? He states over the past 3 days he is experiencing diffuse abdominal pain but particularly worse on the right that has been increasingly worse.? He has been vomiting and having multiple episodes of diarrhea each day.? Today his vomit is red tinged, and he reports bright red blood in his stools also.? He is concerned that his abdomen is very distended.? He contact his primary care provider who advised him to come to the emergency department.? Patient moved recently from [place], [place] and has not yet established care with a operational risk manager in the area.? Reports that he took his Humira today. He reports he has an upcoming appointment 09/24/2021. Hospital Course Admitted to hospital. Pain medication and IV steroids with good results. Seen in consultation by GI; underwent sigmoidoscopy today including pouch exploration which failed to demonstrate any acute pathology. At this point he has received several doses of steroids and is able to take a diet. He wishes discharge and I believe he is medically acceptable for same. He will be discharged to home to complete prednisone taper and will follow up with GI as scheduled later in the month Time Spent with Patient Time attestation: Total time spent providing and/or coordinating discharge services: Discharge coordination time: Greater than 30 minutes Quality: Stroke Does the patient have a stroke diagnosis?: No Physical Exam Vital Signs: Vital Signs: Last Vital Signs Temp 98.7 F 09/19/21 14:18 Pulse 87 09/19/21 14:18 Resp 18 09/19/21 14:18 BP 104/64 09/19/21 14:18 Pulse Ox 94 09/19/21 14:18 BMI result Body Mass Index 27.1 Const: Other: comfortable appearing lying in bed Resp: Other: Clear to auscultation bilaterally no rales rhonchi or wheezes Cardio: Other: No S4; positive S1-S2; no S3 murmurs upper gallops GI: Other: Abdomen distended mildly tympanitic with quiet bowel sounds throughout. The some mild voluntary guarding however no rebound Extrem: Other: No edema bilaterally DS: Data Data Completed and Pending Pending studies at discharge: Pending at discharge 09/19/21 14:05 Surgical [PTH] Routine Discharge Plan Discharge Patient Disposition: Home, Self-Care Discharge Diagnosis: Acute Crohns exacerbation Referrals: Manuel Harris MD [Primary Care Provider] - 1 Week Discharge Medications: New prednisone 10 mg tablet See Rx Instructions .Route .COMPLEX Qty: 45 0RF Rx Instructions: 10 mg orally; 5 tabs p.o. daily x3 days; 4 tabs p.o. daily x3 days; 3 tabs daily x3 days; 2 tabs daily x3 days; 1 tab daily x3 days oxycodone 10 mg tablet 10 mg PO TID PRN (Reason: pain) Qty: 30 0RF Continued hydrocortisone 1 % cream 1 appl topical BID 0RF tramadol 50 mg tablet 50 mg PO Q12H PRN (Reason: Pain (Scale Score 4-6)) 0RF tizanidine 4 mg tablet 1.5 tab PO BEDTIME PRN (Reason: Muscle Spasm) 0RF riboflavin (vitamin B2) [Vitamin B-2] 100 mg tablet 2 tab PO BID 0RF sumatriptan succinate 100 mg tablet 100 mg PO DAILY PRN (Reason: Migraine Headache) 0RF clonazepam 1 mg tablet 1 tab PO BID 0RF propranolol 10 mg tablet 1 tab PO BID 0RF omeprazole 20 mg capsule,delayed release(DR/EC) 40 cap PO DAILY@0630 0RF zolpidem 10 mg tablet 1 tab PO BEDTIME 0RF loratadine 10 mg tablet 1 tab PO DAILY PRN (Reason: Allergy Symptoms) 0RF multivitamin with folic acid [Daily-Davis (with folic acid)] 400 mcg tablet 1 tab PO DAILY 0RF Humira(CF) Pen 40 mg/0.4 mL pen injector kit 40 mg subcut TH@0900 0RF Discharge Orders: Discharge Order (Routine); Ordered 09/19/21 Ordered By: Luis Woods Diet: advance to usual diet Activity on Discharge: As tolerated Stand Alone Forms: Patient Portal Discharge page Care Plan Goals: Complete course of prednisone. Oxycodone for pain as needed. Health Concerns: Continue Humira as ordered. Follow-up with GI as scheduled Plan of Treatment: As above Assessment: See discharge summary
== END 2021-09-19 17:30 | disposition home or self-care (01) | DRG 387 ==
LOC: HO.ED 13:21 → HO.EDOVER 15:25 → HO.IMC 09-19 01:13
PROVIDERS: Internal Medicine Gastroenterology; Nurse Practitioner Family; Admitting Provider Hospitalist; Emergency Provider Emergency Medicine; PCP Internal Medicine; Visit Provider Hospitalist
PROC: 0DJD8ZZ Inspection of Lower Intestinal Tract, Via Natural or Artificial Opening Endoscopic (ICD-10-PCS; CPT 45330; principal; 2021-09-19 13:10)
DX: K50.90 Crohn's disease, unspecified, without complications (principal); F41.9 Anxiety disorder, unspecified; K64.8 Other hemorrhoids; K21.9 Gastro-esophageal reflux disease without esophagitis; Z20.822 Contact with and (suspected) exposure to COVID-19; Z88.2 Allergy status to sulfonamides; Z88.5 Allergy status to narcotic agent; Z79.899 Other long term (current) drug therapy
CPT/HCPCS: 36415; 74177; 80053; 81003; 83690; 83735; 85025; 85652; 86140; 87635; 88305; 96361; 96374; 96375; 96376; 99285; J1170; J1200; J1650; J2060; J2370; J2405; J2550; J2930; Q0163; Q9967

== ENCOUNTER → 2021-09-26 10:53 | Outpatient (BNVA) | payer OTHER, SELFPAY | PROVIDERS: PCP Internal Medicine; Referring Provider Internal Medicine; Visit Provider Internal Medicine Gastroenterology | DX: K50.90 Crohn's disease, unspecified, without complications (principal) | CPT/HCPCS: 99212 ==

== ENCOUNTER 2021-10-22 08:29 | Emergency (ER) | payer OTHER, SELFPAY ==
--- NOTE | ~2021-10-22 | CT_ITS ---
EXAMINATION: CT ABDOMEN AND PELVIS WITH CONTRAST CLINICAL INFORMATION: Rectal pain, bleeding and abdominal pain. History of ulcerative colitis and SBO. COMPARISON: CT abdomen and pelvis 09/18/2021. TECHNIQUE: Multidetector volumetric images were obtained from the superior aspect of the liver through the pubic symphysis following administration 85 mL of Omnipaque 350 intravenous contrast. Sagittal and coronal reformatted images were obtained on the technologist's workstation. Oral contrast: No This CT examination was performed using dose optimization techniques as appropriate, variously including the following: *Automated exposure control *Adjustment of mA and/or kV according to patient size (this includes techniques or standardized protocols for targeted exams where dose is matched to indication/reason for exam; i.e. extremities or head) *Use of iterative reconstruction technique DLP: 553 mGy-cm FINDINGS: LUNG BASES: The visualized lung bases are unremarkable. LIVER, GALLBLADDER, AND BILIARY TREE: The liver is normal in size, shape, and attenuation. No focal hepatic lesion or biliary ductal dilatation is present. The gallbladder has been surgically removed. PANCREAS: Unremarkable SPLEEN: The spleen is borderline enlarged. It measures 12.5 cm. ADRENAL GLANDS: Unremarkable KIDNEYS AND URETERS: The kidneys are normal in size, shape, and attenuation. No hydronephrosis, hydroureter, or calculi seen. No perinephric stranding. BLADDER: Unremarkable GASTROINTESTINAL TRACT: There are postsurgical sutures in the sigmoid rectum junction as well as along the proximal ascending colon/cecal region, likely from anastomosis following total colectomy. There is minimal stool visualized. The small bowel loops are normal caliber. There are surgical sutures scattered throughout the peritoneum. There is no bowel obstruction, free air or free fluid. ABDOMINAL WALL: A small umbilical hernia containing fat is noted. LYMPH NODES: No abnormal lymph nodes seen. VASCULAR: Unremarkable PELVIC VISCERA: The prostate gland is normal size. No free fluid seen. There is no abnormal pelvic or inguinal lymphadenopathy. OSSEOUS STRUCTURES: Unremarkable CT/CT abdomen pelvis w con IMPRESSION: There is no acute intra-abdominal process seen. Postsurgical changes at the sigmoid/rectal junction and proximal ascending colon/right mid quadrant. 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 No major change compared to previous study 09/18/2021. Fleischner guidelines were followed.
[2021-10-22 08:52] VITALS: BP 92/58; PULSE 72; RESP 18; TEMP 36.1; O2SAT 97; BMI 26.6
[2021-10-22 09:04] LABS: Basophils Percent Auto 0.5 % (0-2); Eosinophils Percent Auto 0.6 % (0-4); Hematocrit 43.1 % (42.0-52.0); Hemoglobin 14.9 g/dl (14.0-18.0); Imm Gran Abs Auto 0.01 X10*3/uL (0.00-0.03); Imm Gran Pct Auto 0.2 % (0.0-0.4); Lymphocytes Absolute Auto 1.6 X10*3/uL (1.2-4.9); Lymphocytes Percent Auto 24.3 % (20-40); MANUAL DIFF FLAG NO; Mean Corpuscular HGB Conc 34.6 g/dl (31.0-36.0); Mean Corpuscular Hemoglobin 32.1 pg (27.0-33.0); Mean Corpuscular Volume 92.9 fL (80.0-98.0); Mean Platelet Volume 10.7 fL (9.4-12.4); Monocytes Absolute Auto 0.5 X10*3/uL (0.1-1.2); Monocytes Percent Auto 7.4 % (2-11); Neutrophils Absolute Auto 4.3 x10*3/uL (2.0-8.3); Platelet Count 243 X10*3/uL (160-400); Red Blood Count 4.64 X10*6/uL (4.60-5.80); Red Cell Distribution Width 12.5 % (11.0-16.0); White Blood Count 6.5 X10*3/uL (4.8-10.8)
[2021-10-22 09:19] LABS: Alanine Aminotransferase 37 U/L (0-40); Albumin Level 4.3 g/dL (3.5-5.0); Alkaline Phosphatase 83 U/L (39-117); Anion Gap 14 (12-20); Aspartate Amino Transferase 40 U/L (5-37); Bilirubin Total 0.8 mg/dL (0.0-1.0); Blood Urea Nitrogen 8 mg/dL (9-16); Calcium 9.9 mg/dL (8.4-10.2); Carbon Dioxide 26 mmol/L (22-29); Chloride 106 mmol/L (96-108); Creatinine Clr Calc Pharmacy 103.3; Estimated Glomerular Filt Rate > 60; Glucose Random 104 mg/dL (60-115); Potassium 4.8 mmol/L (3.3-5.1); Sodium 141 mmol/L (135-145); Total Protein 8.1 g/dL (6.5-8.0)
--- NOTE | 2021-10-22 10:45 | ED.ABDPAIN ---
HPI - Abdominal Pain General Chief Complaint: Abdominal Pain Stated Complaint: Rectal bleed/Vomiting Time Seen by Provider: 10/22/21 10:44 Source: patient Mode of arrival: ambulatory Limitations: no limitations History of Present Illness MD elicited complaint: abdominal pain Pertinent past history: other (UC, Crohns) Onset (ago): day(s) (3) Pain Consistency: constant Location: periumbilical Severity: moderate Quality: aching and fullness Radiation: none Exacerbating factors: movement Relieving factors: nothing Context: history of similar episodes Associated symptoms: nausea, vomiting, diarrhea and hematochezia (2 days ago, + flatus today) Related Data Home Medications Medication Instructions Recorded Confirmed adalimumab 40 mg/0.4 mL 40 mg SUBCUT TH@0900 08/19/21 09/18/21 subcutaneous pen kit (Humira(CF) Pen) clonazepam 1 mg tablet 1 tab PO BID 08/19/21 09/18/21 loratadine 10 mg tablet 1 tab PO DAILY PRN 08/19/21 09/18/21 multivitamin with folic acid 400 1 tab PO DAILY 08/19/21 09/18/21 mcg tablet (Daily-Davis (with folic acid)) omeprazole 20 mg capsule,delayed 40 cap PO DAILY@0630 08/19/21 09/18/21 release propranolol 10 mg tablet 1 tab PO BID 08/19/21 09/18/21 riboflavin (vitamin B2) 100 mg 2 tab PO BID 08/19/21 09/18/21 tablet (Vitamin B-2) sumatriptan succinate 100 mg tablet 100 mg PO DAILY PRN 08/19/21 09/18/21 tizanidine 4 mg tablet 1.5 tab PO BEDTIME PRN 08/19/21 09/18/21 zolpidem 10 mg tablet 1 tab PO BEDTIME 08/19/21 09/18/21 hydrocortisone 1 % topical cream 1 appl TOPICAL BID 09/18/21 09/18/21 tramadol 50 mg tablet 50 mg PO Q12H PRN 09/18/21 09/18/21 magnesium oxide 400 mg (241.3 mg 400 mg PO DAILY 09/26/21 magnesium) tablet Previous Rx's Medication Instructions Recorded oxycodone 10 mg tablet 10 mg PO TID PRN #30 tab 09/19/21 prednisone 10 mg tablet See Rx Instructions .ROUTE 09/19/21 .COMPLEX #45 tab promethazine 25 mg tablet 25 mg PO TID PRN #14 tab 10/22/21 Allergies Allergy/AdvReac Type Severity Reaction Status Date / Time ondansetron [Ondansetron] Allergy Mild HIVES Verified 09/26/21 10:58 Sulfa (Sulfonamide Allergy Mild UNKNOWN Verified 09/26/21 10:58 Antibiotics) ketorolac Allergy Unknown Unknown Verified 09/26/21 10:58 meperidine [Demerol] Allergy Unknown Unknown Verified 09/26/21 10:58 metoclopramide [Reglan] Allergy Unknown Unknown Verified 09/26/21 10:58 morphine [Morphine] Allergy Unknown RASH Verified 09/26/21 10:58 ketamine Allergy Unknown Verified 09/26/21 10:58 From REGLAN Allergy Mild PT UNSURE Uncoded 09/26/21 10:58 BUT STATES HE IS ALLERGIC Compro Allergy Unknown Unknown Uncoded 09/26/21 10:58 From COMPAZINE Allergy Unknown ITCHING Uncoded 09/26/21 10:58 From Demerol Allergy Unknown ITCHY HIVES Uncoded 09/26/21 10:58 From Toradol Allergy Unknown UNK Uncoded 09/26/21 10:58 Review of Systems Review of Systems Constitutional : No Weight loss, No Fever, No Chills ENT/Mouth : No sore throat, No Rhinorrhea Eyes: No Swelling, No Redness Cardiovascular : No Chest Pain, No SOB, NoEdema Respiratory : No Cough, No Sputum, No Wheezing Gastrointestinal : Positive Nausea, Positive Vomiting, positive Diarrhea, positive abdominal Pain, pos Hematochezia, No Melena Genitourinary : No Dysuria, No Urinary Frequency, No Hematuria, No Urgency Musculoskeletal : No joint pain, No Myalgias, No Joint Swelling Skin : No Skin Lesions, No rash Neuro : No Weakness, No Numbness, No Dizziness, No Headache Psych : No Anxiety/Panic, No Depression Heme/Lymph: No Bruising, No Lymphadenopathy Endocrine : No Polyuria, No Polydipsia All other systems reviewed and are negative. [facility] Past Medical History Attestation statement: The following information was validated with the patient. Source: old records reviewed Medical History Acute Crohn's disease Hx of ulcerative colitis Partial small bowel obstruction Surgical History History of esophagogastroduodenoscopy (EGD) Hx of colonoscopy Family History Family History (Updated 09/26/21 @ 11:00 by FRANCO Guadalupe) Mother HTN (hypertension) Social History Social History Household Members: Spouse and Children Housing: House Do you presently have visiting nurse or other home services: No Alcohol intake: never Patient Tobacco Use Status: Never used Tobacco Advance Directives: No Advance Directives Information Provided: No service: No Current occupational status: disabled Physical Exam ED Vital Signs: Vital Signs - 24 hr 10/22/21 08:52 10/22/21 11:38 10/22/21 12:33 Temperature 96.9 F Pulse Rate 72 61 72 Respiratory Rate 18 16 12 Blood Pressure 92/58 L 108/73 100/72 Pulse Oximetry 97 99 100 10/22/21 14:17 10/22/21 14:53 Temperature Pulse Rate 68 66 Respiratory Rate 19 17 Blood Pressure 105/74 110/74 Pulse Oximetry 96 BMI result Body Mass Index 26.6 Appearance: Alert. Oriented X3. No acute distress. Eyes: Pupils equal, round and reactive to light. ENT: Pharynx normal. Neck: Normal inspection. Neck supple. CVS: Normal heart rate and rhythm. Pulses normal. Respiratory: No respiratory distress. Breath sounds normal. Abdomen: distended, moderate diffuse ttp pos guarding vol no rebound Skin: Skin warm and dry. Normal skin color. Normal skin turgor. Extremities: No lower extremity edema. No calf ttp Neuro: Oriented X 3. No motor deficit. No sensory deficit. Course Course Course Narrative: CTs can no acute findings, H/H stable - repeat doses of IV pain medications will send message to his GI doctor GI aware - no acute findings at this time can be DC home - gets his humira shot tomorrow MDM - Abdominal Pain MDM Narrative Medical decision making narrative: 40 yo male hx of UC/Crohns due for Humira tonorrow, SBO here with c/o abdominal pain distention, n/v, intermittent bloody stools x 2 to 3 days. At this time he is distended will need labs, CT scan for acute inflammation/SBO, IVF x 2L, IV fentanyl for pain/phenergan for nausea. Dispo per results and findings. Lab Data Result diagrams: 10/22/21 08:59 10/22/21 08:59 Labs: Lab Results 10/22/21 10/22/21 10/22/21 Range/Units 08:59 08:59 11:06 WBC 6.5 (4.8-10.8) X10*3/uL RBC 4.64 (4.60-5.80) X10*6/uL Hgb 14.9 (14.0-18.0) g/dl Hct 43.1 (42.0-52.0) % MCV 92.9 (80.0-98.0) fL MCH 32.1 (27.0-33.0) pg MCHC 34.6 (31.0-36.0) g/dl RDW 12.5 (11.0-16.0) % Plt Count 243 D (160-400) X10*3/uL MPV 10.7 (9.4-12.4) fL Immature Gran % (Auto) 0.2 (0.0-0.4) % Neut % (Auto) 67.0 (45-73) % Lymph % (Auto) 24.3 (20-40) % Pacific % (Auto) 7.4 (2-11) % Eos % (Auto) 0.6 (0-4) % Baso % (Auto) 0.5 (0-2) % Lymph # (Auto) 1.6 (1.2-4.9) X10*3/uL Pacific # (Auto) 0.5 (0.1-1.2) X10*3/uL Eos # (Auto) 0.0 (0.0-0.4) X10*3/uL Baso # (Auto) 0.0 (0.0-0.2) X10*3/uL Abs Immat Gran (auto) 0.01 (0.00-0.03) X10*3/uL Absolute Neuts (auto) 4.3 (2.0-8.3) x10*3/uL Absolute Nucleated RBC 0.000 (0.0-0.012) X10*3/uL Nucleated RBC % (auto) 0.0 (0.0-0.2) /100WBC Sodium 141 (135-145) mmol/L Potassium 4.8 (3.3-5.1) mmol/L Chloride 106 (96-108) mmol/L Carbon Dioxide 26 (22-29) mmol/L Anion Gap 14 (12-20) BUN 8 L (9-16) mg/dL Creatinine 0.81 (0.5-1.4) mg/dL Estim Creat Clear Calc 103.3 Estimated GFR > 60 Random Glucose 104 (60-115) mg/dL Lactic Acid (0.5-2.0) mmol/L Calcium 9.9 (8.4-10.2) mg/dL Total Bilirubin 0.8 (0.0-1.0) mg/dL AST 40 H (5-37) U/L ALT 37 (0-40) U/L Alkaline Phosphatase 83 (39-117) U/L Total Protein 8.1 H (6.5-8.0) g/dL Albumin 4.3 (3.5-5.0) g/dL Lipase 37 (8-78) U/L Stool Occult Blood NEGATIVE (NEGATIVE) 10/22/21 Range/Units 11:09 WBC (4.8-10.8) X10*3/uL RBC (4.60-5.80) X10*6/uL Hgb (14.0-18.0) g/dl Hct (42.0-52.0) % MCV (80.0-98.0) fL MCH (27.0-33.0) pg MCHC (31.0-36.0) g/dl RDW (11.0-16.0) % Plt Count (160-400) X10*3/uL MPV (9.4-12.4) fL Immature Gran % (Auto) (0.0-0.4) % Neut % (Auto) (45-73) % Lymph % (Auto) (20-40) % Pacific % (Auto) (2-11) % Eos % (Auto) (0-4) % Baso % (Auto) (0-2) % Lymph # (Auto) (1.2-4.9) X10*3/uL Pacific # (Auto) (0.1-1.2) X10*3/uL Eos # (Auto) (0.0-0.4) X10*3/uL Baso # (Auto) (0.0-0.2) X10*3/uL Abs Immat Gran (auto) (0.00-0.03) X10*3/uL Absolute Neuts (auto) (2.0-8.3) x10*3/uL Absolute Nucleated RBC (0.0-0.012) X10*3/uL Nucleated RBC % (auto) (0.0-0.2) /100WBC Sodium (135-145) mmol/L Potassium (3.3-5.1) mmol/L Chloride (96-108) mmol/L Carbon Dioxide (22-29) mmol/L Anion Gap (12-20) BUN (9-16) mg/dL Creatinine (0.5-1.4) mg/dL Estim Creat Clear Calc Estimated GFR Random Glucose (60-115) mg/dL Lactic Acid 0.8 (0.5-2.0) mmol/L Calcium (8.4-10.2) mg/dL Total Bilirubin (0.0-1.0) mg/dL AST (5-37) U/L ALT (0-40) U/L Alkaline Phosphatase (39-117) U/L Total Protein (6.5-8.0) g/dL Albumin (3.5-5.0) g/dL Lipase (8-78) U/L Stool Occult Blood (NEGATIVE) Discharge Plan Discharge Clinical Impression: Abdominal pain Qualifiers: Abdominal location: generalized Qualified Code(s): R10.84 - Generalized abdominal pain Patient Disposition: Home, Self-Care Instructions: Abdominal Pain (ED) Additional Instructions: return to ED for any worsening symptoms or concerns please follow up with your doctor labs and CT scan normal - no acute findings no obstruction no inflammation an?lisis de laboratorio y tomograf?a computarizada normales - sin hallazgos agudos sin obstrucci?n sin inflamaci?n Prescriptions: New promethazine 25 mg tablet 25 mg PO TID PRN (Reason: nausea and vomiting) Qty: 14 0RF No Action hydrocortisone 1 % cream 1 appl topical BID 0RF tramadol 50 mg tablet 50 mg PO Q12H PRN (Reason: Pain (Scale Score 4-6)) 0RF prednisone 10 mg tablet See Rx Instructions .Route .COMPLEX Qty: 45 0RF Rx Instructions: 10 mg orally; 5 tabs p.o. daily x3 days; 4 tabs p.o. daily x3 days; 3 tabs daily x3 days; 2 tabs daily x3 days; 1 tab daily x3 days oxycodone 10 mg tablet 10 mg PO TID PRN (Reason: pain) Qty: 30 0RF tizanidine 4 mg tablet 1.5 tab PO BEDTIME PRN (Reason: Muscle Spasm) 0RF riboflavin (vitamin B2) [Vitamin B-2] 100 mg tablet 2 tab PO BID 0RF sumatriptan succinate 100 mg tablet 100 mg PO DAILY PRN (Reason: Migraine Headache) 0RF clonazepam 1 mg tablet 1 tab PO BID 0RF propranolol 10 mg tablet 1 tab PO BID 0RF omeprazole 20 mg capsule,delayed release(DR/EC) 40 cap PO DAILY@0630 0RF zolpidem 10 mg tablet 1 tab PO BEDTIME 0RF loratadine 10 mg tablet 1 tab PO DAILY PRN (Reason: Allergy Symptoms) 0RF multivitamin with folic acid [Daily-Davis (with folic acid)] 400 mcg tablet 1 tab PO DAILY 0RF Humira(CF) Pen 40 mg/0.4 mL pen injector kit 40 mg subcut TH@0900 0RF magnesium oxide 400 mg (241.3 mg magnesium) tablet 400 mg PO DAILY 0RF
[2021-10-22 11:14] LABS: OBS Int Ctl Valid YES; OBS1 NEGATIVE (NEGATIVE)
[2021-10-22 11:18] LABS: Lipase 37 U/L (8-78)
[2021-10-22 11:27] LABS: Lactic Acid 0.8 mmol/L (0.5-2.0)
[2021-10-22] MEDS: 0.9 % Sodium Chloride 1,000 ML 999 ML IVCONT ×2 (11:29→11:43)
[2021-10-22] MEDS: fentaNYL citrate/PF 100 MCG/2 ML VIAL 50 MCG IVPUSH (11:30)
[2021-10-22] MEDS: diphenhydrAMINE HCL 50 MG/ML VIAL 12.5 MG IVPUSH (11:31)
[2021-10-22 11:38] VITALS: BP 108/73; PULSE 61; RESP 16; O2SAT 99
[2021-10-22 12:33] VITALS: BP 100/72; PULSE 72; RESP 12; O2SAT 100
[2021-10-22] MEDS: HYDROmorphone HCl 1 MG/ML SYRINGE IVPUSH ×2 (12:42→14:14)
[2021-10-22] MEDS: iohexoL 350 MG/ML 100 ML INFUS..BTL IV (13:00)
[2021-10-22 14:17] VITALS: BP 105/74; PULSE 68; RESP 19; O2SAT 96
[2021-10-22 14:53] VITALS: BP 110/74; PULSE 66; RESP 17
[2021-10-22 15:41] LABS: Amphetamine Screen Urine Not Detected (Not Detect); Barbiturates, Urine Not Detected (Not Detect); Benzodiazepines Screen Urine Not Detected (Not Detect); Cannabinoid Screen Urine Not Detected (Not Detect); Cocaine Screen Urine Not Detected (Not Detect); Fentanyl, urine POSITIVE (Not Detect); Opiate Screen Urine Not Detected (Not Detect); Phencyclidine Screen Urine Not Detected (Not Detect)
== END 2021-10-22 15:11 | disposition home or self-care (01) ==
PROVIDERS: Emergency Provider Emergency Medicine; PCP Internal Medicine
DX: K92.1 Melena (principal); R11.2 Nausea with vomiting, unspecified; R10.84 Generalized abdominal pain; Z79.899 Other long term (current) drug therapy
CPT/HCPCS: 36415; 74177; 80053; 80307; 82272; 83605; 83690; 85025; 96361; 96374; 96375; 96376; 99284; J1170; J1200; J2550; J3010; Q9967

== ENCOUNTER 2021-11-04 10:04 | Emergency (ER) | payer OTHER, SELFPAY | END 2021-11-04 10:45 | disposition left against medical advice (07) | PROVIDERS: Emergency Provider Emergency Medicine; PCP Internal Medicine | DX: K50.90 Crohn's disease, unspecified, without complications (principal) ==

== ENCOUNTER 2021-11-05 07:22 | Emergency (ER) | payer MEDICARE, SELFPAY ==
--- NOTE | ~2021-11-05 | XR_ITS ---
EXAMINATION: XR ABDOMEN KUB CLINICAL INDICATION: Abdominal pain and distention. History of Crohn's disease. History of small bowel structure. COMPARISON: CT abdomen and pelvis 10/22/2021 and KUB 02/18/2018 TECHNIQUE: AP view of the abdomen. FINDINGS: No dilated air-filled loops of small bowel to suggest an obstructive process. The patient is status post total colectomy. Numerous surgical changes again demonstrated throughout the abdomen. There is a mild stool burden within the rectum. Visualized lung bases are well aerated. XR/XR KUB IMPRESSION: Again demonstrated are postsurgical changes of the abdomen with no evidence of an obstructive picture.
[2021-11-05 07:40] VITALS: BP 98/59; PULSE 76; RESP 14; TEMP 36.4; O2SAT 98
[2021-11-05 07:43] VITALS: BMI 26.6
--- NOTE | 2021-11-05 07:54 | ED.ABDPAIN ---
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 Espinosa, chronic abdominal pain on chronic opiates who presents to the ER with nausea, vomiting and bloody diarrhea since last night at 6pm. He also reports blood in his vomit that started at 3:45am. He called his GI doctor's office this morning who instructed him to come into the ED because he was unable to tolerate any PO at home. He reports the abdominal pain is similar to when he had colitis in the past. He denies fever, chills, URI symptoms, chest pain or SOB. MD elicited complaint: abdominal pain Pertinent past history: other (IBD) Onset (ago): hour(s) (14) Pain Consistency: constant Location: diffuse Severity: severe Pain scale (0-10): 10 Quality: cramping and stabbing Radiation: none Migration to: no migration Exacerbating factors: nothing Context: history of similar episodes Associated symptoms: nausea, vomiting, diarrhea and hematochezia Related Data Home Medications Medication Instructions Recorded Confirmed adalimumab 40 mg/0.4 mL 40 mg SUBCUT TH@0900 08/19/21 09/18/21 subcutaneous pen kit (Humira(CF) Pen) clonazepam 1 mg tablet 1 tab PO BID 08/19/21 09/18/21 loratadine 10 mg tablet 1 tab PO DAILY PRN 08/19/21 09/18/21 multivitamin with folic acid 400 1 tab PO DAILY 08/19/21 09/18/21 mcg tablet (Daily-Davis (with folic acid)) omeprazole 20 mg capsule,delayed 40 cap PO DAILY@0630 08/19/21 09/18/21 release propranolol 10 mg tablet 1 tab PO BID 08/19/21 09/18/21 riboflavin (vitamin B2) 100 mg 2 tab PO BID 08/19/21 09/18/21 tablet (Vitamin B-2) sumatriptan succinate 100 mg tablet 100 mg PO DAILY PRN 08/19/21 09/18/21 tizanidine 4 mg tablet 1.5 tab PO BEDTIME PRN 08/19/21 09/18/21 zolpidem 10 mg tablet 1 tab PO BEDTIME 08/19/21 09/18/21 hydrocortisone 1 % topical cream 1 appl TOPICAL BID 09/18/21 09/18/21 tramadol 50 mg tablet 50 mg PO Q12H PRN 09/18/21 09/18/21 magnesium oxide 400 mg (241.3 mg 400 mg PO DAILY 09/26/21 magnesium) tablet Previous Rx's Medication Instructions Recorded oxycodone 10 mg tablet 10 mg PO TID PRN #30 tab 09/19/21 prednisone 10 mg tablet See Rx Instructions .ROUTE 09/19/21 .COMPLEX #45 tab promethazine 25 mg tablet 25 mg PO TID PRN #14 tab 10/22/21 promethazine 25 mg rectal 25 mg IN Q6H PRN #12 ea 11/05/21 suppository tramadol 50 mg tablet 50 mg PO Q6H PRN #6 tab 11/05/21 Allergies Allergy/AdvReac Type Severity Reaction Status Date / Time ondansetron [Ondansetron] Allergy Mild HIVES Verified 09/26/21 10:58 Sulfa (Sulfonamide Allergy Mild UNKNOWN Verified 09/26/21 10:58 Antibiotics) ketorolac Allergy Unknown Unknown Verified 09/26/21 10:58 meperidine [Demerol] Allergy Unknown Unknown Verified 09/26/21 10:58 metoclopramide [Reglan] Allergy Unknown Unknown Verified 09/26/21 10:58 morphine [Morphine] Allergy Unknown RASH Verified 09/26/21 10:58 ketamine Allergy Unknown Verified 09/26/21 10:58 From REGLAN Allergy Mild PT UNSURE Uncoded 09/26/21 10:58 BUT STATES HE IS ALLERGIC Compro Allergy Unknown Unknown Uncoded 09/26/21 10:58 From COMPAZINE Allergy Unknown ITCHING Uncoded 09/26/21 10:58 From Demerol Allergy Unknown ITCHY HIVES Uncoded 09/26/21 10:58 From Toradol Allergy Unknown UNK Uncoded 09/26/21 10:58 Review of Systems Review of Systems Constitutional: No Fever, No Chills ENT/Mouth: No sore throat, No Rhinorrhea, No Swallowing Difficulty Eyes: No Eye Pain, No Swelling, No Redness Cardiovascular: No Chest Pain, No SOB, No Orthopnea, No Edema Respiratory: No Cough, No Sputum, No Wheezing, No dyspnea Gastrointestinal: + Nausea, + Vomiting, + Diarrhea, + abdominal Pain, + Hematochezia, No Melena Genitourinary: No Dysuria, No Urinary Frequency, No Hematuria Musculoskeletal: No joint pain, No Myalgias Skin: No Skin Lesions, No rash Neuro: No Weakness, No Numbness, No Dizziness, No Headache Psych: No Anxiety/Panic, No Depression Heme/Lymph: No Bruising, No Lymphadenopathy Endocrine: No Polyuria, No Polydipsia PMFSH Past Medical History Medical History Acute Crohn's disease Hx of ulcerative colitis Partial small bowel obstruction Surgical History History of esophagogastroduodenoscopy (EGD) Hx of colonoscopy Family History Family History (Updated 09/26/21 @ 11:00 by FRANCO Guadalupe) Mother HTN (hypertension) Social History Social History Household Members: Spouse and Children Housing: House Do you presently have visiting nurse or other home services: No Alcohol intake: never Patient Tobacco Use Status: Never used Tobacco Advance Directives: No Advance Directives Information Provided: No service: No Current occupational status: disabled Physical Exam ED Vital Signs: Vital Signs - 24 hr 11/05/21 07:40 11/05/21 09:12 Temperature 97.5 F 97.9 F Pulse Rate 76 69 Respiratory Rate 14 17 Blood Pressure 98/59 L 105/67 Pulse Oximetry 98 100 BMI result Body Mass Index 26.6 Appearance: Alert. Oriented X3. Tearful Eyes: Pupils equal, round and reactive to light. ENT: Pharynx normal. Neck: Normal inspection. Neck supple. CVS: Normal heart rate and rhythm. Pulses normal. Respiratory: No respiratory distress. Breath sounds normal. Abdomen: multiple well healed surgical scars, tenderness and guarding of the right abdomen, normal BS throughout. rectal deferred. Skin: Skin warm and dry. Normal skin color. Normal skin turgor. No rashes. Extremities: No lower extremity edema. Neuro: Oriented X 3. Grossly normal, nonfocal Course Course Course Narrative: 41 y/o male with history of inflammatory bowel disease presents to the ER with bloody diarrhea, vomiting and abdominal pain since last night - he reports similar episodes with his flares. His abdomen is somewhat firm and guarded, serina on the right side. Antiemetics and pain meds ordered - will get KUB to assess for possible obstructive pattern. Just had CT of his abdomen 10/22, hold off for now and see what his inflammatory markers look like. Reevaluation(s) Reevaluation #1: Inflammatory markers are normal. No obstructive pattern seen on KUB. Patient continues to vomit and have abdominal pain. Additional IV Dilaudid ordered. His vomitus is now slight pink tinge collar with a few red strands concern of possible upper GI bleed. Will get a gastroccult. IV Protonix ordered as well as additional Phenergan. Reevaluation #2: Pain and nausea improved. Now tolerating PO and would like to go home. IN Phenergan ordered for home. He will follow up with his GI provider. MDM - Abdominal Pain Lab Data Result diagrams: 11/05/21 07:56 11/05/21 07:56 Labs: Lab Results 11/05/21 11/05/21 11/05/21 Range/Units 07:56 07:56 07:56 WBC 5.4 (4.8-10.8) X10*3/uL RBC 4.63 (4.60-5.80) X10*6/uL Hgb 14.6 (14.0-18.0) g/dl Hct 42.2 (42.0-52.0) % MCV 91.1 (80.0-98.0) fL MCH 31.5 (27.0-33.0) pg MCHC 34.6 (31.0-36.0) g/dl RDW 12.5 (11.0-16.0) % Plt Count 161 D (160-400) X10*3/uL MPV 11.0 (9.4-12.4) fL Immature Gran % (Auto) 0.2 (0.0-0.4) % Neut % (Auto) 69.1 (45-73) % Lymph % (Auto) 22.7 (20-40) % Summers % (Auto) 6.5 (2-11) % Eos % (Auto) 1.1 (0-4) % Baso % (Auto) 0.4 (0-2) % Lymph # (Auto) 1.2 (1.2-4.9) X10*3/uL Summers # (Auto) 0.4 (0.1-1.2) X10*3/uL Eos # (Auto) 0.1 (0.0-0.4) X10*3/uL Baso # (Auto) 0.0 (0.0-0.2) X10*3/uL Abs Immat Gran (auto) 0.01 (0.00-0.03) X10*3/uL Absolute Neuts (auto) 3.7 (2.0-8.3) x10*3/uL Absolute Nucleated RBC 0.000 (0.0-0.012) X10*3/uL Nucleated RBC % (auto) 0.0 (0.0-0.2) /100WBC ESR 10 (0-15) MM/HR Sodium 140 (135-145) mmol/L Potassium 4.7 (3.3-5.1) mmol/L Chloride 107 (96-108) mmol/L Carbon Dioxide 26 (22-29) mmol/L Anion Gap 12 (12-20) BUN 13 D (9-16) mg/dL Creatinine 0.79 (0.5-1.4) mg/dL Estim Creat Clear Calc 104.8 Estimated GFR > 60 Random Glucose 90 (60-115) mg/dL Calcium 9.6 (8.4-10.2) mg/dL Magnesium 2.1 (1.6-2.6) mg/dL Total Bilirubin 1.0 (0.0-1.0) mg/dL Direct Bilirubin 0.3 (0.0-0.5) mg/dL AST 34 (5-37) U/L ALT 23 (0-40) U/L Alkaline Phosphatase 70 (39-117) U/L C-Reactive Protein 0.05 (< or = 0.50) mg/dL Total Protein 7.9 (6.5-8.0) g/dL Albumin 4.2 (3.5-5.0) g/dL Lipase 33 (8-78) U/L Critical Care Time Critical Care Time Critical Care Time: Yes Total Critical Care Time: 35 Attestation: I have personally provided critical care time exclusive of time spent on separately billable procedures. Time includes review of lab data, radiology results, frequent bedside reassessments, and monitoring for potential decompensation. Intervention performed as documented. Discharge Plan Discharge Clinical Impression: Abdominal pain Patient Disposition: Home, Self-Care Instructions: Abdominal Pain (ED), Crohn Disease (ED) Additional Instructions: Your lab workup today was unremarkable. Start taking the prescribed medication as directed for this. Stick to a bland diet Follow up with GI doctor as soon as possible If you develop new or worsening symptoms call 911 or come back to the ER for further evaluation. Prescriptions: New promethazine 25 mg suppository 25 mg IN Q6H PRN (Reason: nausea and vomiting) Qty: 12 0RF tramadol 50 mg tablet 50 mg PO Q6H PRN (Reason: severe pain (scale score 7-10)) Qty: 6 0RF No Action hydrocortisone 1 % cream 1 appl topical BID 0RF tramadol 50 mg tablet 50 mg PO Q12H PRN (Reason: Pain (Scale Score 4-6)) 0RF prednisone 10 mg tablet See Rx Instructions .Route .COMPLEX Qty: 45 0RF Rx Instructions: 10 mg orally; 5 tabs p.o. daily x3 days; 4 tabs p.o. daily x3 days; 3 tabs daily x3 days; 2 tabs daily x3 days; 1 tab daily x3 days oxycodone 10 mg tablet 10 mg PO TID PRN (Reason: pain) Qty: 30 0RF tizanidine 4 mg tablet 1.5 tab PO BEDTIME PRN (Reason: Muscle Spasm) 0RF riboflavin (vitamin B2) [Vitamin B-2] 100 mg tablet 2 tab PO BID 0RF sumatriptan succinate 100 mg tablet 100 mg PO DAILY PRN (Reason: Migraine Headache) 0RF clonazepam 1 mg tablet 1 tab PO BID 0RF propranolol 10 mg tablet 1 tab PO BID 0RF omeprazole 20 mg capsule,delayed release(DR/EC) 40 cap PO DAILY@0630 0RF zolpidem 10 mg tablet 1 tab PO BEDTIME 0RF loratadine 10 mg tablet 1 tab PO DAILY PRN (Reason: Allergy Symptoms) 0RF multivitamin with folic acid [Daily-Davis (with folic acid)] 400 mcg tablet 1 tab PO DAILY 0RF Humira(CF) Pen 40 mg/0.4 mL pen injector kit 40 mg subcut TH@0900 0RF promethazine 25 mg tablet 25 mg PO TID PRN (Reason: nausea and vomiting) Qty: 14 0RF magnesium oxide 400 mg (241.3 mg magnesium) tablet 400 mg PO DAILY 0RF
[2021-11-05] MEDS: Lactated Ringers 1,000 ML 999 ML IV (08:01)
[2021-11-05] MEDS: diphenhydrAMINE HCL 50 MG/ML VIAL 25 MG IVPUSH (08:02)
[2021-11-05] MEDS: HYDROmorphone HCl 0.5 MG/0.5 ML SYRINGE IVPUSH (08:02)
[2021-11-05 08:03] LABS: MANUAL DIFF FLAG NO
[2021-11-05 08:06] LABS: Basophils Percent Auto 0.4 % (0-2); Eosinophils Absolute Auto 0.1 X10*3/uL (0.0-0.4); Eosinophils Percent Auto 1.1 % (0-4); Hematocrit 42.2 % (42.0-52.0); Hemoglobin 14.6 g/dl (14.0-18.0); Imm Gran Abs Auto 0.01 X10*3/uL (0.00-0.03); Imm Gran Pct Auto 0.2 % (0.0-0.4); Lymphocytes Absolute Auto 1.2 X10*3/uL (1.2-4.9); Lymphocytes Percent Auto 22.7 % (20-40); Mean Corpuscular HGB Conc 34.6 g/dl (31.0-36.0); Mean Corpuscular Hemoglobin 31.5 pg (27.0-33.0); Mean Corpuscular Volume 91.1 fL (80.0-98.0); Monocytes Absolute Auto 0.4 X10*3/uL (0.1-1.2); Monocytes Percent Auto 6.5 % (2-11); Neutrophils Absolute Auto 3.7 x10*3/uL (2.0-8.3); Neutrophils Percent Auto 69.1 % (45-73); Platelet Count 161 X10*3/uL (160-400); Red Blood Count 4.63 X10*6/uL (4.60-5.80); Red Cell Distribution Width 12.5 % (11.0-16.0); White Blood Count 5.4 X10*3/uL (4.8-10.8)
[2021-11-05 08:27] LABS: Alanine Aminotransferase 23 U/L (0-40); Albumin Level 4.2 g/dL (3.5-5.0); Alkaline Phosphatase 70 U/L (39-117); Anion Gap 12 (12-20); Aspartate Amino Transferase 34 U/L (5-37); Bilirubin Direct 0.3 mg/dL (0.0-0.5); Blood Urea Nitrogen 13 mg/dL (9-16); C Reactive Protein 0.05 mg/dL (< or = 0.50); Calcium 9.6 mg/dL (8.4-10.2); Carbon Dioxide 26 mmol/L (22-29); Chloride 107 mmol/L (96-108); Creatinine Clr Calc Pharmacy 104.8; Estimated Glomerular Filt Rate > 60; Glucose Random 90 mg/dL (60-115); Lipase 33 U/L (8-78); Magnesium 2.1 mg/dL (1.6-2.6); Potassium 4.7 mmol/L (3.3-5.1); Sodium 140 mmol/L (135-145); Total Protein 7.9 g/dL (6.5-8.0)
[2021-11-05 08:56] LABS: Erythrocyte Sedimentation Rate 10 MM/HR (0-15)
[2021-11-05 09:12] VITALS: BP 105/67; PULSE 69; RESP 17; TEMP 36.6; O2SAT 100
[2021-11-05] MEDS: HYDROmorphone HCl 1 MG/ML SYRINGE IVPUSH (09:34)
[2021-11-05] MEDS: Pantoprazole Sodium 40 MG/10 ML VIAL IVPUSH (10:22)
== END 2021-11-05 13:07 | disposition home or self-care (01) ==
PROVIDERS: Emergency Provider Emergency Medicine; PCP Internal Medicine
DX: R10.9 Unspecified abdominal pain (principal); G89.29 Other chronic pain; K63.9 Disease of intestine, unspecified; Z79.891 Long term (current) use of opiate analgesic; Z79.899 Other long term (current) drug therapy
CPT/HCPCS: 36415; 74018; 80048; 80076; 83690; 83735; 85025; 85652; 86140; 96361; 96374; 96375; 96376; 99284; 99291; J1170; J1200; J2550

== ENCOUNTER 2021-11-21 08:36 | Emergency (ER) | payer MEDICARE, SELFPAY | END 2021-11-21 10:17 | disposition left against medical advice (07) | LOC: HO.ED 10:16 | PROVIDERS: Emergency Provider Emergency Medicine | DX: R10.9 Unspecified abdominal pain (principal); K50.90 Crohn's disease, unspecified, without complications ==

== ENCOUNTER 2021-11-22 05:31 | Emergency (ER) | payer OTHER, SELFPAY ==
--- NOTE | ~2021-11-22 | CT_ITS ---
EXAMINATION: CT ABDOMEN AND PELVIS WITH CONTRAST CLINICAL INFORMATION: Abdominal pain and diarrhea. COMPARISON: [facility] November 05, [address] abdomen pelvis October 22, 2021 TECHNIQUE: Multidetector volumetric images were obtained from the superior aspect of the liver through the pubic symphysis following administration 85 mL of Omnipaque 350 intravenous contrast. Sagittal and coronal reformatted images were obtained on the technologist's workstation. This CT examination was performed using dose optimization techniques as appropriate, variously including the following: *Automated exposure control *Adjustment of mA and/or kV according to patient size (this includes techniques or standardized protocols for targeted exams where dose is matched to indication/reason for exam; i.e. extremities or head) *Use of iterative reconstruction technique DLP: 507 mGy-cm FINDINGS: Visualized lung bases are well aerated. The liver demonstrates normal size, contour and attenuation. The gallbladder is surgically absent. The pancreas, spleen and adrenal glands are unremarkable. Symmetrically enhancing kidneys. No renal calculi or hydronephrosis bilaterally. The stomach is decompressed. Normal caliber loops of small bowel. Patient is status post total colectomy. Anastomotic suture lines are unremarkable. Normal caliber abdominal aorta. No retroperitoneal lymphadenopathy. Tiny fat-containing umbilical hernia is unchanged. The bladder is normal in appearance. The prostate gland is normal in size. No inguinal lymphadenopathy. No acute osseous abnormality. CT/CT abdomen pelvis w con IMPRESSION: Stable examination demonstrating no CT evidence for acute abnormality within the abdomen or pelvis. Fleischner guidelines were followed.
[2021-11-22 05:45] VITALS: BP 110/66; PULSE 87; RESP 18; TEMP 36.7; O2SAT 99; BMI 27.1
[2021-11-22 06:02] LABS: Basophils Percent Auto 0.2 % (0-2); Eosinophils Absolute Auto 0.1 X10*3/uL (0.0-0.4); Hematocrit 37.1 % (42.0-52.0); Hemoglobin 12.7 g/dl (14.0-18.0); Imm Gran Abs Auto 0.01 X10*3/uL (0.00-0.03); Imm Gran Pct Auto 0.2 % (0.0-0.4); Lymphocytes Absolute Auto 1.9 X10*3/uL (1.2-4.9); Lymphocytes Percent Auto 32.3 % (20-40); MANUAL DIFF FLAG NO; Mean Corpuscular HGB Conc 34.2 g/dl (31.0-36.0); Mean Corpuscular Hemoglobin 31.6 pg (27.0-33.0); Mean Corpuscular Volume 92.3 fL (80.0-98.0); Mean Platelet Volume 10.4 fL (9.4-12.4); Monocytes Absolute Auto 0.4 X10*3/uL (0.1-1.2); Monocytes Percent Auto 7.6 % (2-11); Neutrophils Absolute Auto 3.4 x10*3/uL (2.0-8.3); Neutrophils Percent Auto 58.7 % (45-73); Platelet Count 206 X10*3/uL (160-400); Red Blood Count 4.02 X10*6/uL (4.60-5.80); Red Cell Distribution Width 12.7 % (11.0-16.0); White Blood Count 5.8 X10*3/uL (4.8-10.8)
[2021-11-22 06:17] LABS: Alanine Aminotransferase 38 U/L (0-40); Albumin Level 3.9 g/dL (3.5-5.0); Alkaline Phosphatase 63 U/L (39-117); Anion Gap 12 (12-20); Aspartate Amino Transferase 17 U/L (5-37); Bilirubin Total 0.8 mg/dL (0.0-1.0); Blood Urea Nitrogen 12 mg/dL (9-16); Calcium 9.3 mg/dL (8.4-10.2); Carbon Dioxide 28 mmol/L (22-29); Chloride 104 mmol/L (96-108); Creatinine Clr Calc Pharmacy 126.1; Estimated Glomerular Filt Rate > 60; Glucose Random 91 mg/dL (60-115); Potassium 3.9 mmol/L (3.3-5.1); Sodium 140 mmol/L (135-145)
--- NOTE | 2021-11-22 09:27 | ED.ABDPAIN ---
HPI - Abdominal Pain General Chief Complaint: Abdominal Pain Stated Complaint: Abd pain Time Seen by Provider: 11/22/21 09:05 Source: patient Mode of arrival: ambulatory Limitations: no limitations History of Present Illness HPI narrative: Patient presents emergency department for evaluation of right-sided abdominal pain. Onset of severe pain was 3 days ago. Reports he has chronic right-sided abdominal pain but this feels worse. He has been vomiting it is pink tinged. Denies bloody or black stools. Denies constipation or diarrhea. Denies fevers or chills. Denies chest pain, palpitations, shortness of breath, or difficulty breathing. MD elicited complaint: abdominal pain Onset (ago): day(s) Pain Consistency: constant Location: RUQ and RLQ Severity: moderate Pain scale (0-10): 8 Quality: cramping and aching Radiation: none Exacerbating factors: eating, bowel movement, vomiting and movement Relieving factors: nothing Related Data Home Medications Medication Instructions Recorded Confirmed adalimumab 40 mg/0.4 mL 40 mg SUBCUT TH@0900 08/19/21 09/18/21 subcutaneous pen kit (Humira(CF) Pen) clonazepam 1 mg tablet 1 tab PO BID 08/19/21 09/18/21 loratadine 10 mg tablet 1 tab PO DAILY PRN 08/19/21 09/18/21 multivitamin with folic acid 400 1 tab PO DAILY 08/19/21 09/18/21 mcg tablet (Daily-Davis (with folic acid)) omeprazole 20 mg capsule,delayed 40 cap PO DAILY@0630 08/19/21 09/18/21 release propranolol 10 mg tablet 1 tab PO BID 08/19/21 09/18/21 riboflavin (vitamin B2) 100 mg 2 tab PO BID 08/19/21 09/18/21 tablet (Vitamin B-2) sumatriptan succinate 100 mg tablet 100 mg PO DAILY PRN 08/19/21 09/18/21 tizanidine 4 mg tablet 1.5 tab PO BEDTIME PRN 08/19/21 09/18/21 zolpidem 10 mg tablet 1 tab PO BEDTIME 08/19/21 09/18/21 hydrocortisone 1 % topical cream 1 appl TOPICAL BID 09/18/21 09/18/21 tramadol 50 mg tablet 50 mg PO Q12H PRN 09/18/21 09/18/21 magnesium oxide 400 mg (241.3 mg 400 mg PO DAILY 09/26/21 magnesium) tablet Previous Rx's Medication Instructions Recorded oxycodone 10 mg tablet 10 mg PO TID PRN #30 tab 09/19/21 prednisone 10 mg tablet See Rx Instructions .ROUTE 09/19/21 .COMPLEX #45 tab promethazine 25 mg tablet 25 mg PO TID PRN #14 tab 10/22/21 promethazine 25 mg rectal 25 mg MT Q6H PRN #12 ea 11/05/21 suppository tramadol 50 mg tablet 50 mg PO Q6H PRN #6 tab 11/05/21 Allergies Allergy/AdvReac Type Severity Reaction Status Date / Time ondansetron [Ondansetron] Allergy Mild HIVES Verified 09/26/21 10:58 Sulfa (Sulfonamide Allergy Mild UNKNOWN Verified 09/26/21 10:58 Antibiotics) ketorolac Allergy Unknown Unknown Verified 09/26/21 10:58 meperidine [Demerol] Allergy Unknown Unknown Verified 09/26/21 10:58 metoclopramide [Reglan] Allergy Unknown Unknown Verified 09/26/21 10:58 morphine [Morphine] Allergy Unknown RASH Verified 09/26/21 10:58 haloperidol [From Haldol] Allergy Anaphylaxis Verified 11/22/21 05:45 ketamine Allergy Unknown Verified 09/26/21 10:58 From REGLAN Allergy Mild PT UNSURE Uncoded 09/26/21 10:58 BUT STATES HE IS ALLERGIC Compro Allergy Unknown Unknown Uncoded 09/26/21 10:58 From COMPAZINE Allergy Unknown ITCHING Uncoded 09/26/21 10:58 From Demerol Allergy Unknown ITCHY HIVES Uncoded 09/26/21 10:58 From Toradol Allergy Unknown UNK Uncoded 09/26/21 10:58 Review of Systems Review of Systems Constitutional : No Weight loss, No Fever, No Chills ENT/Mouth :? No sore throat, No Rhinorrhea Eyes: No Swelling, No Redness Cardiovascular : No Chest Pain, No SOB, No Edema Respiratory : No Cough, No Sputum, No Wheezing Gastrointestinal : Positive Nausea, Positive Vomiting, no Diarrhea, positive abdominal pain, No Hematochezia, No Melena Genitourinary : No Dysuria, No Urinary Frequency, No Hematuria, No Urgency? Musculoskeletal : No joint pain, No Myalgias, No Joint Swelling Skin : No Skin Lesions, No rash Neuro : No Weakness, No Numbness, No Dizziness, No Headache Psych : No Anxiety/Panic, No Depression Heme/Lymph: No Bruising, No Lymphadenopathy Endocrine : No Polyuria, No Polydipsia Yes all other systems are reviewed and are negative [facility] Past Medical History Attestation statement: The following information was validated with the patient. Source: old records reviewed Medical History Acute Crohn's disease Hx of ulcerative colitis Partial small bowel obstruction Surgical History History of esophagogastroduodenoscopy (EGD) Hx of colonoscopy Family History Family History Mother HTN (hypertension) Social History Social History Household Members: Spouse and Children Housing: House Do you presently have visiting nurse or other home services: No Alcohol intake: never Patient Tobacco Use Status: Never used Tobacco Advance Directives: No service: No Current occupational status: disabled Physical Exam ED Vital Signs: Vital Signs - 24 hr 11/22/21 05:45 11/22/21 09:29 11/22/21 10:08 Temperature 98.0 F Pulse Rate 87 84 Respiratory Rate 18 18 18 Blood Pressure 110/66 117/71 Pulse Oximetry 99 100 11/22/21 10:33 Temperature Pulse Rate Respiratory Rate 16 Blood Pressure Pulse Oximetry BMI result Body Mass Index 27.1 Vital signs have been reviewed as normal and appeared to be correct. Blood pressure normal.? Heart rate normal.? Respiration rate normal. Temperature normal.? Oxygen saturation normal. Appearance: Alert.?Oriented to person, place and time. No acute distress.?Normal affect. Eyes: Pupils equal, round and reactive to light.? ENT: Pharynx normal.?? Neck: Normal inspection.? Neck supple.?? CVS: Heart sounds normal. Normal heart rate and rhythm.? Pulses normal.?? Respiratory: No respiratory distress.? Lung sounds clear to auscultation bilaterally?? Abdomen: Soft with diffuse tenderness to palpation. No rigidity or distention. No rebound tenderness. Skin: Skin warm and dry.? Normal skin color.? Extremities: No lower extremity edema.? Neuro: Moves all extremities spontaneously. Sensation intact bilaterally. No motor deficits. Ambulates with normal steady gait. Course Course Course Narrative: Patient is a 41-year-old male with a past medical history of Crohn's disease and partial colon resection subsequent bowel obstruction presenting to the emergency department for evaluation of right-sided abdominal pain, diarrhea, and nausea/vomiting. Reports that he has been noticing blood in his vomit that started yesterday. Reports that he has chronic right-sided abdominal pain with his Crohn's disease but feels worse today. Will obtain CBC to evaluate for leukocytosis/ anemia, CMP and lipase to evaluate for abnormal electrolytes /abnormal renal function/ abnormal hepatic/biliary function, CT of the abdomen to evaluate for obstruction or colitis. Urinalysis to evaluate for infection. Patient received Dilaudid 0.5 mg IV, Phenergan IV, and 1 L normal saline. Reevaluation(s) Reevaluation #1: Noted patient to have redwatery emesis while in the emergency department. CBC reveals a normocytic anemia hemoglobin 12.7 hematocrit 37.1, down from 14.6 and 42.2 2.5 weeks ago, no leukocytosis. CMP is unremarkable, lipase normal. CRP normal. Gastric occult blood testing positive, Protonix 40 mg IV ordered. Urinalysis without sign of infection. CT of the abdomen without evidence for acute abnormality. Discussed findings with patient, recommended admission for upper GI bleeding, message sent to hospitalist for admission to medicine service. Time: 11:09 Reevaluation #2: Patient at this time requesting to leave against medical advice. He verbalizes understanding of possible complications of continued GI bleeding, advised this may be life threatening verbalizes understanding. States he will come back if he begins to feel worse. Time: 11:44 MDM - Abdominal Pain Medical Records Attestation: I reviewed the patient's medical records. Lab Data Attestation: I reviewed the patient's lab results. Result diagrams: 11/22/21 05:49 11/22/21 05:49 Labs: Lab Results 11/22/21 11/22/21 11/22/21 Range/Units 05:49 05:49 05:49 WBC 5.8 (4.8-10.8) X10*3/uL RBC 4.02 L (4.60-5.80) X10*6/uL Hgb 12.7 L (14.0-18.0) g/dl Hct 37.1 L (42.0-52.0) % MCV 92.3 (80.0-98.0) fL MCH 31.6 (27.0-33.0) pg MCHC 34.2 (31.0-36.0) g/dl RDW 12.7 (11.0-16.0) % Plt Count 206 D (160-400) X10*3/uL MPV 10.4 (9.4-12.4) fL Immature Gran % (Auto) 0.2 (0.0-0.4) % Neut % (Auto) 58.7 (45-73) % Lymph % (Auto) 32.3 (20-40) % [place] % (Auto) 7.6 (2-11) % Eos % (Auto) 1.0 (0-4) % Baso % (Auto) 0.2 (0-2) % Lymph # (Auto) 1.9 (1.2-4.9) X10*3/uL [place] # (Auto) 0.4 (0.1-1.2) X10*3/uL Eos # (Auto) 0.1 (0.0-0.4) X10*3/uL Baso # (Auto) 0.0 (0.0-0.2) X10*3/uL Abs Immat Gran (auto) 0.01 (0.00-0.03) X10*3/uL Absolute Neuts (auto) 3.4 (2.0-8.3) x10*3/uL Absolute Nucleated RBC 0.000 (0.0-0.012) X10*3/uL Nucleated RBC % (auto) 0.0 (0.0-0.2) /100WBC ESR 8 (0-15) MM/HR Sodium 140 (135-145) mmol/L Potassium 3.9 (3.3-5.1) mmol/L Chloride 104 (96-108) mmol/L Carbon Dioxide 28 (22-29) mmol/L Anion Gap 12 (12-20) BUN 12 (9-16) mg/dL Creatinine 0.71 (0.5-1.4) mg/dL Estim Creat Clear Calc 126.1 Estimated GFR > 60 Random Glucose 91 (60-115) mg/dL Calcium 9.3 (8.4-10.2) mg/dL Total Bilirubin 0.8 (0.0-1.0) mg/dL AST 17 D (5-37) U/L ALT 38 (0-40) U/L Alkaline Phosphatase 63 (39-117) U/L C-Reactive Protein 0.02 (< or = 0.50) mg/dL Total Protein 7.0 (6.5-8.0) g/dL Albumin 3.9 (3.5-5.0) g/dL Lipase 39 (8-78) U/L Urine Color Urine Appearance Urine pH (5.0-8.0) Ur Specific Parker (1.005-1.025) Urine Protein (NEG-TRACE) MG/DL Urine Glucose (UA) (NEG) MG/DL Urine Ketones (NEG) MG/DL Urine Blood (NEG) Urine Nitrite (NEG) Ur Leukocyte Esterase (NEG) Gastric Occult Blood (NEG) 11/22/21 11/22/21 Range/Units 09:35 10:29 WBC (4.8-10.8) X10*3/uL RBC (4.60-5.80) X10*6/uL Hgb (14.0-18.0) g/dl Hct (42.0-52.0) % MCV (80.0-98.0) fL MCH (27.0-33.0) pg MCHC (31.0-36.0) g/dl RDW (11.0-16.0) % Plt Count (160-400) X10*3/uL MPV (9.4-12.4) fL Immature Gran % (Auto) (0.0-0.4) % Neut % (Auto) (45-73) % Lymph % (Auto) (20-40) % [place] % (Auto) (2-11) % Eos % (Auto) (0-4) % Baso % (Auto) (0-2) % Lymph # (Auto) (1.2-4.9) X10*3/uL [place] # (Auto) (0.1-1.2) X10*3/uL Eos # (Auto) (0.0-0.4) X10*3/uL Baso # (Auto) (0.0-0.2) X10*3/uL Abs Immat Gran (auto) (0.00-0.03) X10*3/uL Absolute Neuts (auto) (2.0-8.3) x10*3/uL Absolute Nucleated RBC (0.0-0.012) X10*3/uL Nucleated RBC % (auto) (0.0-0.2) /100WBC ESR (0-15) MM/HR Sodium (135-145) mmol/L Potassium (3.3-5.1) mmol/L Chloride (96-108) mmol/L Carbon Dioxide (22-29) mmol/L Anion Gap (12-20) BUN (9-16) mg/dL Creatinine (0.5-1.4) mg/dL Estim Creat Clear Calc Estimated GFR Random Glucose (60-115) mg/dL Calcium (8.4-10.2) mg/dL Total Bilirubin (0.0-1.0) mg/dL AST (5-37) U/L ALT (0-40) U/L Alkaline Phosphatase (39-117) U/L C-Reactive Protein (< or = 0.50) mg/dL Total Protein (6.5-8.0) g/dL Albumin (3.5-5.0) g/dL Lipase (8-78) U/L Urine Color STRAW Urine Appearance CLEAR Urine pH 6.5 (5.0-8.0) Ur Specific Parker <= 1.005 (1.005-1.025) Urine Protein NEG (NEG-TRACE) MG/DL Urine Glucose (UA) NEG (NEG) MG/DL Urine Ketones NEG (NEG) MG/DL Urine Blood NEG (NEG) Urine Nitrite NEG (NEG) Ur Leukocyte Esterase NEG (NEG) Gastric Occult Blood POSITIVE (NEG) Imaging Data CT scan - abdomen: Radiologist's impression: CT/CT abdomen pelvis w con IMPRESSION: Stable examination demonstrating no CT evidence for acute abnormality within the abdomen or pelvis.? Discharge Plan Discharge Clinical Impression: Acute upper GI bleed Patient Disposition: Left Against Medical Advice Additional Instructions: You are leaving against medical advice. As we discussed you are having bleeding from your GI system. It is our recommendation that you be admitted into the hospital. You can return to the emergency department with any new or worsening symptoms or concerns. Prescriptions: No Action hydrocortisone 1 % cream 1 appl topical BID 0RF tramadol 50 mg tablet 50 mg PO Q12H PRN (Reason: Pain (Scale Score 4-6)) 0RF prednisone 10 mg tablet See Rx Instructions .Route .COMPLEX Qty: 45 0RF Rx Instructions: 10 mg orally; 5 tabs p.o. daily x3 days; 4 tabs p.o. daily x3 days; 3 tabs daily x3 days; 2 tabs daily x3 days; 1 tab daily x3 days oxycodone 10 mg tablet 10 mg PO TID PRN (Reason: pain) Qty: 30 0RF promethazine 25 mg suppository 25 mg MT Q6H PRN (Reason: nausea and vomiting) Qty: 12 0RF tramadol 50 mg tablet 50 mg PO Q6H PRN (Reason: severe pain (scale score 7-10)) Qty: 6 0RF tizanidine 4 mg tablet 1.5 tab PO BEDTIME PRN (Reason: Muscle Spasm) 0RF riboflavin (vitamin B2) [Vitamin B-2] 100 mg tablet 2 tab PO BID 0RF sumatriptan succinate 100 mg tablet 100 mg PO DAILY PRN (Reason: Migraine Headache) 0RF clonazepam 1 mg tablet 1 tab PO BID 0RF propranolol 10 mg tablet 1 tab PO BID 0RF omeprazole 20 mg capsule,delayed release(DR/EC) 40 cap PO DAILY@0630 0RF zolpidem 10 mg tablet 1 tab PO BEDTIME 0RF loratadine 10 mg tablet 1 tab PO DAILY PRN (Reason: Allergy Symptoms) 0RF multivitamin with folic acid [Daily-Davis (with folic acid)] 400 mcg tablet 1 tab PO DAILY 0RF Humira(CF) Pen 40 mg/0.4 mL pen injector kit 40 mg subcut TH@0900 0RF promethazine 25 mg tablet 25 mg PO TID PRN (Reason: nausea and vomiting) Qty: 14 0RF magnesium oxide 400 mg (241.3 mg magnesium) tablet 400 mg PO DAILY 0RF Interventions: ED Discharge Assessment Last Done: 11/22/21 12:22 Discharge Date/Time: 11/22/21 12:22
[2021-11-22 09:29] VITALS: RESP 18
[2021-11-22] MEDS: HYDROmorphone HCl 0.5 MG/0.5 ML SYRINGE IVPUSH ×2 (09:29→10:33)
[2021-11-22] MEDS: 0.9 % Sodium Chloride 1,000 ML 999 ML IV (09:29)
[2021-11-22 09:35] LABS: C Reactive Protein 0.02 mg/dL (< or = 0.50); Lipase 39 U/L (8-78)
[2021-11-22 10:08] VITALS: BP 117/71; PULSE 84; RESP 18; O2SAT 100
[2021-11-22] MEDS: iohexoL 350 MG/ML 100 ML INFUS..BTL IV (10:11)
[2021-11-22 10:14] LABS: Erythrocyte Sedimentation Rate 8 MM/HR (0-15)
[2021-11-22 10:33] VITALS: RESP 16
[2021-11-22 10:35] LABS: GASOB Int Neg Ctl Valid YES; GASOB Int Pos Ctl Valid YES; Occult Blood Gastric POSITIVE (NEG)
[2021-11-22 10:41] LABS: Appearance Urine CLEAR; Color Urine STRAW; Glucose Urine UA NEG (NEG); Leukocyte Esterase Urine NEG (NEG); Nitrite Urine NEG (NEG); PH 6.5 (5.0-8.0); Specific Gravity - Urine <= 1.005 (1.005-1.025); Urine Blood NEG (NEG); Urine Ketones NEG (NEG); Urine Protein NEG (NEG-TRACE)
[2021-11-22] MEDS: Pantoprazole Sodium 40 MG/10 ML VIAL IVPUSH (11:22)
== END 2021-11-22 12:22 | disposition left against medical advice (07) ==
PROVIDERS: Nurse Practitioner Family; Emergency Provider Emergency Medicine; PCP Internal Medicine
DX: K92.2 Gastrointestinal hemorrhage, unspecified (principal); Z87.19 Personal history of other diseases of the digestive system; Z90.49 Acquired absence of other specified parts of digestive tract
CPT/HCPCS: 36415; 74177; 80053; 81003; 82271; 83690; 85025; 85652; 86140; 96361; 96374; 96375; 96376; 99284; J1170; J2550; Q9967

== ENCOUNTER 2022-01-26 10:44 | Outpatient (REF) | payer OTHER, SELFPAY ==
[2022-01-26 14:01] LABS: MANUAL DIFF FLAG NO
[2022-01-26 14:30] LABS: Basophils Percent Auto 0.4 % (0-2); Eosinophils Percent Auto 0.5 % (0-4); Hematocrit 42.8 % (42.0-52.0); Hemoglobin 14.6 g/dl (14.0-18.0); Imm Gran Abs Auto 0.01 X10*3/uL (0.00-0.03); Imm Gran Pct Auto 0.2 % (0.0-0.4); Lymphocytes Absolute Auto 1.2 X10*3/uL (1.2-4.9); Lymphocytes Percent Auto 21.6 % (20-40); Mean Corpuscular HGB Conc 34.1 g/dl (31.0-36.0); Mean Corpuscular Hemoglobin 31.3 pg (27.0-33.0); Mean Corpuscular Volume 91.6 fL (80.0-98.0); Mean Platelet Volume 11.1 fL (9.4-12.4); Monocytes Absolute Auto 0.3 X10*3/uL (0.1-1.2); Neutrophils Absolute Auto 4.1 x10*3/uL (2.0-8.3); Neutrophils Percent Auto 72.3 % (45-73); Platelet Count 185 X10*3/uL (160-400); Red Blood Count 4.67 X10*6/uL (4.60-5.80); Red Cell Distribution Width 12.5 % (11.0-16.0); White Blood Count 5.6 X10*3/uL (4.8-10.8)
[2022-01-26 14:38] LABS: Alanine Aminotransferase 27 U/L (0-40); Albumin Level 4.5 g/dL (3.5-5.0); Alkaline Phosphatase 60 U/L (39-117); Anion Gap 12 (12-20); Aspartate Amino Transferase 21 U/L (5-37); Bilirubin Total 1.3 mg/dL (0.0-1.0); Blood Urea Nitrogen 7 mg/dL (9-16); C Reactive Protein 0.04 mg/dL (< or = 0.50); Calcium 9.4 mg/dL (8.4-10.2); Carbon Dioxide 30 mmol/L (22-29); Chloride 103 mmol/L (96-108); Estimated Glomerular Filt Rate > 60; Glucose Random 93 mg/dL (60-115); Sodium 141 mmol/L (135-145); Total Protein 7.9 g/dL (6.5-8.0)
[2022-01-26 14:59] LABS: Ferritin 44 ng/mL (20-250); TSH reflex Free T4 1.33 uIU/mL (0.32-4.0); Vitamin D 25-OH Total 21.6 ng/mL (>30)
[2022-01-26 15:12] LABS: Vitamin B12 229 pg/mL (200-900)
[2022-01-27 07:11] LABS: HBS Num1 1.11 mIU/mL (0-7.99); HBc Num1 0.05 S/CO (0.00-0.79); Hepatitis B Core Antibody Nonreactive (Nonreactive); Hepatitis B Surface Antigen Negative (Negative); ~HepC Num1 0.12 S/CO (0.00-0.79); ~Hepatitis B Surface Antibody NONREACTIVE (Nonreactive); ~Hepatitis C Antibody Nonreactive (Nonreactive)
[2022-01-28 05:14] LABS: Hepatitis A Antibody IgM 0.14 Index (0-0.79); ~Hepatitis A Antibody IgM Nonreactive (Nonreactive)
[2022-01-28 17:56] LABS: Transglutaminase Ab IgG <1.0 U/mL; Transglutaminase IgA <1.0 U/mL
[2022-01-28 20:27] LABS: TS Negative Control Passed; TS Panel A 0; TS Panel B 0; TS Positive Control Passed; TSpotTB Negative (Negative)
[2022-01-30 13:41] LABS: Zinc 62 mcg/dL (60-130)
[2022-02-08 01:07] LABS: Adalimumab Drug Level 29.3 mcg/mL; Anti-Adalimumab Antibody <10 AU (<10)
== END 2022-01-26 10:45 | disposition home or self-care (01) ==
LOC: HO.LAB 10:44
PROVIDERS: PCP Internal Medicine; Visit Provider Internal Medicine Gastroenterology
DX: Z11.1 Encounter for screening for respiratory tuberculosis (principal); K50.90 Crohn's disease, unspecified, without complications; K75.81 Nonalcoholic steatohepatitis (NASH); G89.29 Other chronic pain; R10.33 Periumbilical pain; K50.80 Crohn's disease of both small and large intestine without complications; Z79.899 Other long term (current) drug therapy
CPT/HCPCS: 36415; 80053; 80145; 82180; 82306; 82607; 82728; 82746; 83520; 84443; 84630; 85025; 86140; 86364; 86481; 86704; 86706; 86709; 86803; 87340; 99212

== ENCOUNTER 2022-02-10 03:19 | Emergency (ER) | payer OTHER, SELFPAY ==
--- NOTE | ~2022-02-10 | CT_ITS ---
EXAMINATION: CT ABDOMEN AND PELVIS WITHOUT CONTRAST CLINICAL INFORMATION: Crohn's disease. Abdominal pain and distention and diarrhea. Evaluate for small bowel obstruction. COMPARISON: Previous CT of the abdomen and pelvis most recent November 2021 TECHNIQUE: Multidetector volumetric imaging was performed from the superior aspect of the liver through the pubic symphysis. Sagittal and coronal reformatted images were obtained on the technologist's workstation. This CT examination was performed using dose optimization techniques as appropriate, variously including the following: *Automated exposure control *Adjustment of mA and/or kV according to patient size (this includes techniques or standardized protocols for targeted exams where dose is matched to indication/reason for exam; i.e. extremities or head) *Use of iterative reconstruction technique DLP: 530 mGy-cm FINDINGS: LUNG BASES: The visualized lung bases are unremarkable. LIVER, GALLBLADDER, AND BILIARY TREE: The liver is normal in size, shape, and attenuation. No focal hepatic lesion or biliary ductal dilatation is present. The gallbladder has been removed. PANCREAS: Unremarkable. SPLEEN: Unremarkable. ADRENAL GLANDS: Unremarkable. KIDNEYS AND URETERS: There are small bilateral renal stones. There are several small right renal cortical calcifications largest measuring 4 mm. There is a round 8 mm high attenuation lesion in the upper pole of the right kidney likely representing No hydronephrosis, ureteral dilatation or ureteral stone. BLADDER: Unremarkable. GASTROINTESTINAL TRACT: There are postsurgical changes following colectomy and J-pouch. There is a minimally dilated isolated loop of small bowel in the left lower quadrant measuring 3 cm. The bowel is otherwise normal. The J-pouch is normal. The stomach is normal. ABDOMINAL WALL: There are postsurgical changes to the anterior abdominal wall. There is a small umbilical hernia containing fat. LYMPH NODES: Normal. VASCULAR: Unremarkable. PELVIC VISCERA: Unremarkable. OSSEOUS STRUCTURES: There are degenerative changes of the spine. CT/CT abdomen pelvis wo con IMPRESSION: Stable postsurgical changes following total colectomy and J-pouch creation. Nonspecific bowel gas pattern with single loop of minimally dilated small bowel in the left lower quadrant measuring up to 3 cm. Bilateral renal stones. Fleischner guidelines were followed.
[2022-02-10 03:30] VITALS: BP 118/70; PULSE 67; RESP 18; TEMP 37.1; O2SAT 97; BMI 60.5
[2022-02-10 03:42] LABS: Hematocrit 42.3 % (42.0-52.0); Hemoglobin 14.6 g/dl (14.0-18.0); Mean Corpuscular HGB Conc 34.5 g/dl (31.0-36.0); Mean Corpuscular Hemoglobin 31.7 pg (27.0-33.0); Platelet Count 156 X10*3/uL (160-400); Red Cell Distribution Width 12.2 % (11.0-16.0); White Blood Count 6.2 X10*3/uL (4.8-10.8)
[2022-02-10 04:03] LABS: Alanine Aminotransferase 28 U/L (0-40); Albumin Level 4.5 g/dL (3.5-5.0); Alkaline Phosphatase 71 U/L (39-117); Anion Gap 14 (12-20); Aspartate Amino Transferase 22 U/L (5-37); Bilirubin Direct 0.4 mg/dL (0.0-0.5); Blood Urea Nitrogen 13 mg/dL (9-16); Calcium 9.6 mg/dL (8.4-10.2); Carbon Dioxide 26 mmol/L (22-29); Chloride 105 mmol/L (96-108); Creatinine Clr Calc Pharmacy 171.8; Estimated Glomerular Filt Rate > 60; Glucose Random 74 mg/dL (60-115); Lipase 25 U/L (8-78); Potassium 3.9 mmol/L (3.3-5.1); Sodium 141 mmol/L (135-145)
[2022-02-10 05:29] VITALS: BP 113/70; PULSE 70; RESP 16; TEMP 36.6; O2SAT 100
[2022-02-10 06:00] VITALS: BP 109/67; PULSE 70; RESP 20; TEMP 36.3; O2SAT 99
--- NOTE | 2022-02-10 06:26 | ED_ITS ---
HPI - Abdominal Pain General Chief Complaint: Abdominal Pain Stated Complaint: crohn's flare up Time Seen by Provider: 02/10/22 06:10 Source: patient Mode of arrival: ambulatory Limitations: no limitations History of Present Illness HPI narrative: 41 yo male with history of inflammatory bowel disease (UC vs Crohn's) s/p total colectomy w/ colostomy and J pouch in 2006 ([place]) s/p colostomy reversal, hx ex lap for SBO currently on weekly Humira and following with a adjunct political science instructor, Dr. Espinosa, chronic abdominal pain on chronic opiates who presents to the ER with nausea, vomiting and diarrhea since last night x1 1/2 weeks. Patient states that he sees adjunct political science instructor on 01/26/2022 and his GI doctor is concerned Humira is no longer working. The patient was started on a trial of tinidazole 500 mg 2 pills daily and he states that this is not helped his pain. The patient states that for the last 1-1/2 weeks he has been having right lower quadrant pain which is usual for a flare-up of his Crohn's disease. Describes the pain as a constant, sharp, twisting like pain which is 10/10. The patient states he has been vomiting 3 to 5 times a day and occasionally notices blood in the emesis. He has also had 8-10 diarrheal stools per day. He describes these as loose, watery, green stools with no blood in the stool. The patient is taking tramadol for his pain with no relief. He states his abdomen feels very distended. He denied fever, chills, rhinorrhea, sore throat, cough, shortness of breath, dyspnea on exertion. Related Data Home Medications Medication Instructions Recorded Confirmed adalimumab 40 mg/0.4 mL 40 mg subcut TH@0900 08/19/21 09/18/21 subcutaneous pen kit (Humira(CF) Pen) clonazepam 1 mg tablet 1 tab PO BID 08/19/21 09/18/21 loratadine 10 mg tablet 1 tab PO DAILY PRN Allergy Symptoms 08/19/21 09/18/21 multivitamin with folic acid 400 1 tab PO DAILY 08/19/21 09/18/21 mcg tablet (Daily-Davis (with folic acid)) omeprazole 20 mg capsule,delayed 40 cap PO DAILY@0630 08/19/21 09/18/21 release propranolol 10 mg tablet 1 tab PO BID 08/19/21 09/18/21 riboflavin (vitamin B2) 100 mg 2 tab PO BID 08/19/21 09/18/21 tablet (Vitamin B-2) sumatriptan succinate 100 mg tablet 100 mg PO DAILY PRN Migraine 08/19/21 09/18/21 Headache tizanidine 4 mg tablet 1.5 tab PO BEDTIME PRN Muscle Spasm 08/19/21 09/18/21 zolpidem 10 mg tablet 1 tab PO BEDTIME 08/19/21 09/18/21 hydrocortisone 1 % topical cream 1 appl topical BID 09/18/21 09/18/21 tramadol 50 mg tablet 50 mg PO Q12H PRN Pain (Scale 09/18/21 09/18/21 Score 4-6) magnesium oxide 400 mg (241.3 mg 400 mg PO DAILY 09/26/21 magnesium) tablet Previous Rx's Medication Instructions Recorded oxycodone 10 mg tablet 10 mg PO TID PRN pain #30 tabs 09/19/21 prednisone 10 mg tablet See Rx Instructions .Route 09/19/21 .COMPLEX #45 tabs promethazine 25 mg tablet 25 mg PO TID PRN nausea and 10/22/21 vomiting #14 tabs promethazine 25 mg rectal 25 mg [place] Q6H PRN nausea and 11/05/21 suppository vomiting #12 ea tramadol 50 mg tablet 50 mg PO Q6H PRN severe pain 11/05/21 (scale score 7-10) #6 tabs tinidazole 500 mg tablet 500 mg PO BID 2 weeks #28 tabs 01/26/22 prednisone 20 mg tablet 40 mg PO DAILY 7 days #14 tabs 02/10/22 tramadol 50 mg tablet 25 mg PO Q6H PRN pain #14 tabs 02/10/22 Allergies Allergy/AdvReac Type Severity Reaction Status Date / Time ondansetron [Ondansetron] Allergy Mild HIVES Verified 01/26/22 11:15 Sulfa (Sulfonamide Allergy Mild UNKNOWN Verified 01/26/22 11:15 Antibiotics) ketorolac Allergy Unknown Unknown Verified 01/26/22 11:15 meperidine [Demerol] Allergy Unknown Unknown Verified 01/26/22 11:15 metoclopramide [Reglan] Allergy Unknown Unknown Verified 01/26/22 11:15 morphine [Morphine] Allergy Unknown RASH Verified 01/26/22 11:15 haloperidol [From Haldol] Allergy Anaphylaxis Verified 01/26/22 11:15 ketamine Allergy Unknown Verified 01/26/22 11:15 From REGLAN Allergy Mild PT UNSURE Uncoded 01/26/22 11:15 BUT STATES HE IS ALLERGIC Compro Allergy Unknown Unknown Uncoded 01/26/22 11:15 From COMPAZINE Allergy Unknown ITCHING Uncoded 01/26/22 11:15 From Demerol Allergy Unknown ITCHY HIVES Uncoded 01/26/22 11:15 From Toradol Allergy Unknown UNK Uncoded 01/26/22 11:15 Review of Systems Review of Systems Yes all other systems are reviewed and are negative PMFSH Past Medical History [facility] Narrative: Past surgical history: Total colectomy with colostomy in J-pouch in 2006 status post colostomy with reversal, history of exploratory lap for SBO. Social history: He denies tobacco, alcohol and drug use. Medical History Acute Crohn's disease Hx of ulcerative colitis Partial small bowel obstruction Surgical History History of esophagogastroduodenoscopy (EGD) History of surgery on arm Hx of colonoscopy Family History Family History Mother HTN (hypertension) Social History Social History Household Members: Spouse and Children Housing: House Do you presently have visiting nurse or other home services: No Alcohol intake: never Patient Tobacco Use Status: Never used Tobacco Use of substances other than those prescribed or required for medical reasons: No Advance Directives: No service: No Current occupational status: disabled Physical Exam ED Vital Signs: Vital Signs - 24 hr 02/10/22 03:30 02/10/22 05:29 02/10/22 06:00 Temperature 98.7 F 97.9 F 97.4 F Pulse Rate 67 70 70 Respiratory Rate 18 16 20 Blood Pressure 118/70 113/70 109/67 Pulse Oximetry 97 100 99 Oxygen Delivery Method Room Air Room Air Room Air BMI result Body Mass Index 60.5 Const Other: Awake, alert, male patient, appears to be in distress secondary to his pain, answers all questions appropriately. HENIN Head: Yes normal to inspection, Yes normocephalic and Yes atraumatic Ears: external ears normal General nose exam: Normal external nose present Face and sinus: Yes normal facial exam Mouth: Normal oral and palatal mucosa present Throat: Yes posterior oropharynx normal Eyes General: appearance normal, both eyes and all related structures Pupils: Equal, round and reactive pupils present Neck Neck: Yes normal visual inspection, Yes no lymphadenopathy, Yes trachea midline and Yes supple Chest Chest palpation & inspection: normal inspection of the chest and normal palpation of entire chest wall Resp Effort & Inspection: normal respiratory effort and able to speak in complete sentences Auscultation: clear to auscultation bilaterally Cardio Rate: regular rate Rhythm: regular rhythm Heart sounds: S1 normal heart sound present, S2 normal heart sound present and no murmurs GI Inspection: Yes distended Palpation (GI): Soft to palpation, Tenderness to palpation present (GI) (Mild diffuse tenderness) in the RLQ (Moderate to severe) and no guarding Auscultation: High-pitched bowel sounds present General: Yes no CVA tenderness Back/Spine/Pelvis Back: no CVA tenderness Skin General skin exam: no rashes or lesions noted Neuro Cranial nerves: Yes CN's II-XII intact bilaterally and Yes Equal, round and reactive pupils present Cognition (Neuro): normal cognition Motor exam (neuro): 5/5 motor strength present throughout Extrem General: Yes normal to inspection Psych Appearance: grossly normal Speech and movement: Normal speech and movement present Affect: normal affect Attitude: cooperative Thought process: Normal thought process present Thought content: Normal thought content present Course Course Course Narrative: 41-year-old male with history of Crohn's disease status post colectomy and J- pouch who presents emergency department for evaluation of 1-1/2 weeks of right lower quadrant abdominal pain, daily multiple episodes of vomiting and diarrhea, currently being treated with Humira q.week x2 year and tinidazole since 01/26/2022. Vital signs were stable. The patient does appear to be in distress secondary to his pain. Patient has significant right lower quadrant tenderness as well as diffuse abdominal tenderness. He does appear to be distended does have high-pitched bowel sounds. I am concerned that the patient may have a small-bowel obstruction versus a flare-up of his Crohn's disease. I ordered a CBC, CMP, ESR, CRP, lipase, PT/INR, PTT. I will obtain a CT scan of the abdomen pelvis without IV contrast. Patient was ordered to get normal saline IV x1 L. His pain and nausea was treated with Dilaudid 2 mg IV and Phenergan 12.5 mg IV 1032: Laboratory evaluation: Platelet count was low 145,000. CBC and CMP otherwise were unremarkable. ESR and CRP were normal. Radiology evaluation: CT scan abdomen pelvis radiology reading is below: IMPRESSION: Stable postsurgical changes following total colectomy and J-pouch creation. Nonspecific bowel gas pattern with single loop of minimally dilated small bowel in the left lower quadrant measuring up to 3 cm. Bilateral renal stones. Fleischner guidelines were followed. Dictated By: Radha Richard MD Patient to her 2nd dose of Dilaudid 1 mg IV and Phenergan 12.5 mg IV. I will discuss these findings with the patient's gastrologist. 1111: I did discuss the patient's presentation with his adjunct political science instructor, Dr. Espinosa. His impression is the patient has chronic inflammation of his J-pouch and this is probably causing his pain. The patient was given Solu-Medrol 40 mg IV. He was started on prednisone 40 mg once a day for 1 week. Patient states he is out of his tramadol and I did give and a limited prescription for tramadol to help with his pain. Patient will need to follow-up with his gastroenter ologist in 1 week for re-evaluation MDM - Abdominal Pain Lab Data Result diagrams: 02/10/22 06:38 02/10/22 06:36 Labs: Lab Results 02/10/22 02/10/22 02/10/22 Range/Units 03:34 03:34 06:35 WBC 6.2 (4.8-10.8) X10*3/uL RBC 4.60 (4.60-5.80) X10*6/uL Hgb 14.6 (14.0-18.0) g/dl Hct 42.3 (42.0-52.0) % MCV 92.0 (80.0-98.0) fL MCH 31.7 (27.0-33.0) pg MCHC 34.5 (31.0-36.0) g/dl RDW 12.2 (11.0-16.0) % Plt Count 156 L (160-400) X10*3/uL MPV 11.0 (9.4-12.4) fL Immature Gran % (Auto) (0.0-0.4) % Neut % (Auto) (45-73) % Lymph % (Auto) (20-40) % [place] % (Auto) (2-11) % Eos % (Auto) (0-4) % Baso % (Auto) (0-2) % Lymph # (Auto) (1.2-4.9) X10*3/uL [place] # (Auto) (0.1-1.2) X10*3/uL Eos # (Auto) (0.0-0.4) X10*3/uL Baso # (Auto) (0.0-0.2) X10*3/uL Abs Immat Gran (auto) (0.00-0.03) X10*3/uL Absolute Neuts (auto) (2.0-8.3) x10*3/uL Absolute Nucleated RBC 0.000 (0.0-0.012) X10*3/uL Nucleated RBC % (auto) 0.0 (0.0-0.2) /100WBC ESR (0-15) MM/HR PT (10.0-13.1) SEC INR (0.9-1.1) APTT (26.0-36.4) SEC Sodium 141 (135-145) mmol/L Potassium 3.9 (3.3-5.1) mmol/L Chloride 105 (96-108) mmol/L Carbon Dioxide 26 (22-29) mmol/L Anion Gap 14 (12-20) BUN 13 D (9-16) mg/dL Creatinine 0.78 (0.5-1.4) mg/dL Estim Creat Clear Calc 171.8 Estimated GFR > 60 Random Glucose 74 (60-115) mg/dL Lactic Acid (0.5-2.0) mmol/L Calcium 9.6 (8.4-10.2) mg/dL Total Bilirubin 1.0 (0.0-1.0) mg/dL Direct Bilirubin 0.4 (0.0-0.5) mg/dL AST 22 (5-37) U/L ALT 28 (0-40) U/L Alkaline Phosphatase 71 (39-117) U/L C-Reactive Protein (< or = 0.50) mg/dL Total Protein 8.0 (6.5-8.0) g/dL Albumin 4.5 (3.5-5.0) g/dL Lipase 25 (8-78) U/L Urine Color Urine Appearance Urine pH (5.0-8.0) Ur Specific [place] (1.005-1.025) Urine Protein (NEG-TRACE) MG/DL Urine Glucose (UA) (NEG) MG/DL Urine Ketones (NEG) MG/DL Urine Blood (NEG) Urine Nitrite (NEG) Ur Leukocyte Esterase (NEG) COVID-19 (LONG) Negative (Negative) COVID-19 Clin Com See Note 02/10/22 02/10/22 02/10/22 Range/Units 06:36 06:36 06:36 WBC (4.8-10.8) X10*3/uL RBC (4.60-5.80) X10*6/uL Hgb (14.0-18.0) g/dl Hct (42.0-52.0) % MCV (80.0-98.0) fL MCH (27.0-33.0) pg MCHC (31.0-36.0) g/dl RDW (11.0-16.0) % Plt Count (160-400) X10*3/uL MPV (9.4-12.4) fL Immature Gran % (Auto) (0.0-0.4) % Neut % (Auto) (45-73) % Lymph % (Auto) (20-40) % [place] % (Auto) (2-11) % Eos % (Auto) (0-4) % Baso % (Auto) (0-2) % Lymph # (Auto) (1.2-4.9) X10*3/uL [place] # (Auto) (0.1-1.2) X10*3/uL Eos # (Auto) (0.0-0.4) X10*3/uL Baso # (Auto) (0.0-0.2) X10*3/uL Abs Immat Gran (auto) (0.00-0.03) X10*3/uL Absolute Neuts (auto) (2.0-8.3) x10*3/uL Absolute Nucleated RBC (0.0-0.012) X10*3/uL Nucleated RBC % (auto) (0.0-0.2) /100WBC ESR 9 (0-15) MM/HR PT 11.7 (10.0-13.1) SEC INR 1.0 (0.9-1.1) APTT 28.8 (26.0-36.4) SEC Sodium 140 (135-145) mmol/L Potassium 4.1 (3.3-5.1) mmol/L Chloride 105 (96-108) mmol/L Carbon Dioxide 26 (22-29) mmol/L Anion Gap 13 (12-20) BUN 14 (9-16) mg/dL Creatinine 0.73 (0.5-1.4) mg/dL Estim Creat Clear Calc 183.6 Estimated GFR > 60 Random Glucose 98 (60-115) mg/dL Lactic Acid (0.5-2.0) mmol/L Calcium 9.4 (8.4-10.2) mg/dL Total Bilirubin 0.9 (0.0-1.0) mg/dL Direct Bilirubin (0.0-0.5) mg/dL AST 20 (5-37) U/L ALT 25 (0-40) U/L Alkaline Phosphatase 63 (39-117) U/L C-Reactive Protein 0.04 (< or = 0.50) mg/dL Total Protein 7.5 (6.5-8.0) g/dL Albumin 4.2 (3.5-5.0) g/dL Lipase 21 (8-78) U/L Urine Color Urine Appearance Urine pH (5.0-8.0) Ur Specific [place] (1.005-1.025) Urine Protein (NEG-TRACE) MG/DL Urine Glucose (UA) (NEG) MG/DL Urine Ketones (NEG) MG/DL Urine Blood (NEG) Urine Nitrite (NEG) Ur Leukocyte Esterase (NEG) COVID-19 (LONG) (Negative) COVID-19 Clin Com 02/10/22 02/10/22 02/10/22 Range/Units 06:36 06:38 06:45 WBC 5.9 (4.8-10.8) X10*3/uL RBC 4.48 L (4.60-5.80) X10*6/uL Hgb 14.2 (14.0-18.0) g/dl Hct 41.0 L (42.0-52.0) % MCV 91.5 (80.0-98.0) fL MCH 31.7 (27.0-33.0) pg MCHC 34.6 (31.0-36.0) g/dl RDW 12.2 (11.0-16.0) % Plt Count 145 L (160-400) X10*3/uL MPV 10.8 (9.4-12.4) fL Immature Gran % (Auto) 0.2 (0.0-0.4) % Neut % (Auto) 59.6 (45-73) % Lymph % (Auto) 31.9 (20-40) % [place] % (Auto) 6.1 (2-11) % Eos % (Auto) 1.5 (0-4) % Baso % (Auto) 0.7 (0-2) % Lymph # (Auto) 1.9 (1.2-4.9) X10*3/uL [place] # (Auto) 0.4 (0.1-1.2) X10*3/uL Eos # (Auto) 0.1 (0.0-0.4) X10*3/uL Baso # (Auto) 0.0 (0.0-0.2) X10*3/uL Abs Immat Gran (auto) 0.01 (0.00-0.03) X10*3/uL Absolute Neuts (auto) 3.5 (2.0-8.3) x10*3/uL Absolute Nucleated RBC 0.000 (0.0-0.012) X10*3/uL Nucleated RBC % (auto) 0.0 (0.0-0.2) /100WBC ESR (0-15) MM/HR PT (10.0-13.1) SEC INR (0.9-1.1) APTT (26.0-36.4) SEC Sodium (135-145) mmol/L Potassium (3.3-5.1) mmol/L Chloride (96-108) mmol/L Carbon Dioxide (22-29) mmol/L Anion Gap (12-20) BUN (9-16) mg/dL Creatinine (0.5-1.4) mg/dL Estim Creat Clear Calc Estimated GFR Random Glucose (60-115) mg/dL Lactic Acid 0.8 (0.5-2.0) mmol/L Calcium (8.4-10.2) mg/dL Total Bilirubin (0.0-1.0) mg/dL Direct Bilirubin (0.0-0.5) mg/dL AST (5-37) U/L ALT (0-40) U/L Alkaline Phosphatase (39-117) U/L C-Reactive Protein (< or = 0.50) mg/dL Total Protein (6.5-8.0) g/dL Albumin (3.5-5.0) g/dL Lipase (8-78) U/L Urine Color YELLOW Urine Appearance CLEAR Urine pH 5.5 (5.0-8.0) Ur Specific [place] >= 1.030 H (1.005-1.025) Urine Protein NEG (NEG-TRACE) MG/DL Urine Glucose (UA) NEG (NEG) MG/DL Urine Ketones NEG (NEG) MG/DL Urine Blood NEG (NEG) Urine Nitrite NEG (NEG) Ur Leukocyte Esterase NEG (NEG) COVID-19 (LONG) (Negative) COVID-19 Clin Com Discharge Plan Discharge Clinical Impression: Acute Crohn's disease, Abdominal pain Patient Disposition: Home, Self-Care Instructions: Crohn Disease (ED) Additional Instructions: Your blood work was unremarkable except for a slightly low platelet count of a 024481 (normal platelet count is a 145,000-400'000). Your inflammatory markers (CRP and ESR) were normal. The CT scan of your abdomen pelvis without IV contrast did not reveal a bowel blockage. I did talk to your gastrologist, Dr. Espinosa and he believes that your pain is caused by inflammation of the J pouch. You received the anti-inflammatory steroid Solu-Medrol 40 mg IV here in the emergency department I am starting you on prednisone 40 mg once a day for 1 week. Take your 1st dose tomorrow morning. I am also prescribing tramadol for your pain. This is a narcotic medication if your concerned about addiction you can ask the pharmacist for less medications or do not get the prescription filled. Follow-up with your doctor Francisca in 7 days. Call his office today to make that appointment. Please return to the emergency department if your symptoms get worse or if you develop any symptoms that are concerning to you. Prescriptions: New prednisone 20 mg tablet 40 mg PO DAILY 7 Days Qty: 14 0RF tramadol 50 mg tablet 25 mg PO Q6H PRN (Reason: pain) Qty: 14 0RF No Action hydrocortisone 1 % cream 1 appl topical BID tramadol 50 mg tablet 50 mg PO Q12H PRN (Reason: Pain (Scale Score 4-6)) prednisone 10 mg tablet See Rx Instructions .Route .COMPLEX Qty: 45 0RF Rx Instructions: 10 mg orally; 5 tabs p.o. daily x3 days; 4 tabs p.o. daily x3 days; 3 tabs da randolph x3 days; 2 tabs daily x3 days; 1 tab daily x3 days oxycodone 10 mg tablet 10 mg PO TID PRN (Reason: pain) Qty: 30 0RF promethazine 25 mg suppository 25 mg [place] Q6H PRN (Reason: nausea and vomiting) Qty: 12 0RF tramadol 50 mg tablet 50 mg PO Q6H PRN (Reason: severe pain (scale score 7-10)) Qty: 6 0RF tizanidine 4 mg tablet 1.5 tab PO BEDTIME PRN (Reason: Muscle Spasm) riboflavin (vitamin B2) [Vitamin B-2] 100 mg tablet 2 tab PO BID sumatriptan succinate 100 mg tablet 100 mg PO DAILY PRN (Reason: Migraine Headache) clonazepam 1 mg tablet 1 tab PO BID propranolol 10 mg tablet 1 tab PO BID omeprazole 20 mg capsule,delayed release(DR/EC) 40 cap PO DAILY@0630 zolpidem 10 mg tablet 1 tab PO BEDTIME loratadine 10 mg tablet 1 tab PO DAILY PRN (Reason: Allergy Symptoms) multivitamin with folic acid [Daily-Davis (with folic acid)] 400 mcg tablet 1 tab PO DAILY Humira(CF) Pen 40 mg/0.4 mL pen injector kit 40 mg subcut TH@0900 promethazine 25 mg tablet 25 mg PO TID PRN (Reason: nausea and vomiting) Qty: 14 0RF magnesium oxide 400 mg (241.3 mg magnesium) tablet 400 mg PO DAILY tinidazole 500 mg tablet 500 mg PO BID 14 Days Qty: 28 0RF
--- NOTE | 2022-02-10 06:43 | PC.NURSE ---
Pt. placed on treater helper, ED provider and RN to bedside to assess pt., IV access established, labs sent. Awaiting medications and urine samples at this time
[2022-02-10 06:45] LABS: Basophils Percent Auto 0.7 % (0-2); Eosinophils Absolute Auto 0.1 X10*3/uL (0.0-0.4); Eosinophils Percent Auto 1.5 % (0-4); Hemoglobin 14.2 g/dl (14.0-18.0); Imm Gran Abs Auto 0.01 X10*3/uL (0.00-0.03); Imm Gran Pct Auto 0.2 % (0.0-0.4); Lymphocytes Absolute Auto 1.9 X10*3/uL (1.2-4.9); Lymphocytes Percent Auto 31.9 % (20-40); MANUAL DIFF FLAG NO; Mean Corpuscular HGB Conc 34.6 g/dl (31.0-36.0); Mean Corpuscular Hemoglobin 31.7 pg (27.0-33.0); Mean Corpuscular Volume 91.5 fL (80.0-98.0); Mean Platelet Volume 10.8 fL (9.4-12.4); Monocytes Absolute Auto 0.4 X10*3/uL (0.1-1.2); Monocytes Percent Auto 6.1 % (2-11); Neutrophils Absolute Auto 3.5 x10*3/uL (2.0-8.3); Neutrophils Percent Auto 59.6 % (45-73); Platelet Count 145 X10*3/uL (160-400); Red Blood Count 4.48 X10*6/uL (4.60-5.80); Red Cell Distribution Width 12.2 % (11.0-16.0); White Blood Count 5.9 X10*3/uL (4.8-10.8)
[2022-02-10] MEDS: HYDROmorphone HCl 2 MG/ML VIAL IVPUSH (06:49)
[2022-02-10] MEDS: 0.9 % Sodium Chloride 1,000 ML 999 ML IV (06:50)
[2022-02-10 06:53] LABS: Prothrombin Time 11.7 SEC (10.0-13.1)
[2022-02-10 06:54] LABS: Appearance Urine CLEAR; Color Urine YELLOW; Glucose Urine UA NEG (NEG); Leukocyte Esterase Urine NEG (NEG); Nitrite Urine NEG (NEG); PH 5.5 (5.0-8.0); Specific Gravity - Urine >= 1.030 (1.005-1.025); Urine Blood NEG (NEG); Urine Ketones NEG (NEG); Urine Protein NEG (NEG-TRACE)
[2022-02-10 06:55] LABS: Lactic Acid 0.8 mmol/L (0.5-2.0)
[2022-02-10 06:56] LABS: Partial Thromboplastin Time 28.8 SEC (26.0-36.4)
[2022-02-10 07:01] LABS: Alanine Aminotransferase 25 U/L (0-40); Albumin Level 4.2 g/dL (3.5-5.0); Alkaline Phosphatase 63 U/L (39-117); Anion Gap 13 (12-20); Aspartate Amino Transferase 20 U/L (5-37); Bilirubin Total 0.9 mg/dL (0.0-1.0); Blood Urea Nitrogen 14 mg/dL (9-16); C Reactive Protein 0.04 mg/dL (< or = 0.50); Calcium 9.4 mg/dL (8.4-10.2); Carbon Dioxide 26 mmol/L (22-29); Chloride 105 mmol/L (96-108); Creatinine Clr Calc Pharmacy 183.6; Estimated Glomerular Filt Rate > 60; Glucose Random 98 mg/dL (60-115); Lipase 21 U/L (8-78); Potassium 4.1 mmol/L (3.3-5.1); Sodium 140 mmol/L (135-145); Total Protein 7.5 g/dL (6.5-8.0)
[2022-02-10 07:05] LABS: COVID-19 Test Negative (Negative); IDNOW Serial# 55D5AD1C
--- NOTE | 2022-02-10 07:35 | PC.NURSE ---
Addendum entered by Martina Gonzalez 02/10/22 07:36: pt abdomen distended and tenderness; pt explains that he feel s sharp twisting pain in the R side of his abdomen Original Note: assumed care of pt and pt states pain level of 7.
[2022-02-10 07:52] LABS: Erythrocyte Sedimentation Rate 9 MM/HR (0-15)
[2022-02-10] MEDS: HYDROmorphone HCl 1 MG/ML SYRINGE IVPUSH (09:07)
[2022-02-10] MEDS: methylPREDNISolone Sod Succ 40 MG/ML VIAL IVPUSH (11:56)
== END 2022-02-10 12:17 | disposition home or self-care (01) ==
PROVIDERS: Emergency Provider Emergency Medicine Emergency Medical Services; PCP Internal Medicine
DX: R10.9 Unspecified abdominal pain (principal); K50.90 Crohn's disease, unspecified, without complications; Z20.822 Contact with and (suspected) exposure to COVID-19
CPT/HCPCS: 36415; 74176; 80053; 81003; 82248; 83605; 83690; 85025; 85027; 85610; 85652; 85730; 86140; 87635; 96361; 96374; 96375; 96376; 99284; J1170; J2550; J2920

== ENCOUNTER 2022-02-20 16:16 | Emergency (ER) | payer OTHER, SELFPAY ==
[2022-02-20 16:24] VITALS: BP 114/76; PULSE 90; O2SAT 98
== END 2022-02-20 20:00 | disposition left against medical advice (07) ==
LOC: HO.ED 19:50
PROVIDERS: Emergency Provider Emergency Medicine
DX: R10.31 Right lower quadrant pain (principal)

== ENCOUNTER → 2022-02-23 08:29 | Outpatient (BNVA) | payer OTHER, SELFPAY | PROVIDERS: PCP Internal Medicine; Referring Provider Internal Medicine; Visit Provider Internal Medicine Gastroenterology | DX: K50.90 Crohn's disease, unspecified, without complications (principal); R10.9 Unspecified abdominal pain; Z23 Encounter for immunization | CPT/HCPCS: 90471; 90632; 90746; 99212 ==

== ENCOUNTER 2022-02-25 19:53 | Emergency (ER) | payer OTHER, SELFPAY ==
--- NOTE | ~2022-02-25 | CT_ITS ---
EXAMINATION: CT ABDOMEN AND PELVIS WITHOUT CONTRAST CLINICAL INFORMATION: Abdominal pain with history of Crohn's disease COMPARISON: Numerous prior CT scans of the abdomen and pelvis the most recent of which was 15 days ago on 02/10/2022. This is the seventh CT scan the patient has had since July TECHNIQUE: Multidetector volumetric imaging was performed from the superior aspect of the liver through the pubic symphysis. Sagittal and coronal reformatted images were obtained on the technologist's workstation. This CT examination was performed using dose optimization techniques as appropriate, variously including the following: *Automated exposure control *Adjustment of mA and/or kV according to patient size (this includes techniques or standardized protocols for targeted exams where dose is matched to indication/reason for exam; i.e. extremities or head) *Use of iterative reconstruction technique DLP: 524 mGy-cm FINDINGS: LUNG BASES: The visualized lung bases are unremarkable. LIVER, GALLBLADDER, AND BILIARY TREE: The liver is normal in size, shape, and attenuation. Punctate calcified granulomas are present. No focal hepatic lesion or biliary ductal dilatation is present. Patient status post cholecystectomy. PANCREAS: Unremarkable. SPLEEN: Unremarkable. ADRENAL GLANDS: Unremarkable. KIDNEYS AND URETERS: The kidneys are normal in size and shape. Some medullary calcifications are seen. There are some calcifications of the right kidney that are larger and may represent nephrolithiasis. The largest is at the right mid to lower pole measuring 4 to 5 mm in size and is unchanged (3:37). No hydronephrosis or hydroureter. BLADDER: Unremarkable. GASTROINTESTINAL TRACT: Status post total colectomy with J-pouch. The small bowel distal rectal anastomosis is widely patent. No evidence of obstruction. ABDOMINAL WALL: No significant hernia is appreciated. LYMPH NODES: Normal. VASCULAR: Unremarkable. PELVIC VISCERA: The prostate and seminal vesicles are unremarkable. OSSEOUS STRUCTURES: Unremarkable. CT/CT abdomen pelvis wo con IMPRESSION: A cause for the patient's abdominal pain has not been found. Incidental findings described above Fleischner guidelines were followed.
[2022-02-25 20:18] VITALS: BP 114/64; PULSE 81; RESP 18; TEMP 36.8; O2SAT 99; BMI 27.4
[2022-02-25 20:59] LABS: MANUAL DIFF FLAG NO
[2022-02-25 21:01] LABS: Basophils Percent Auto 0.3 % (0-2); Eosinophils Absolute Auto 0.1 X10*3/uL (0.0-0.4); Eosinophils Percent Auto 0.9 % (0-4); Hematocrit 42.8 % (42.0-52.0); Hemoglobin 14.6 g/dl (14.0-18.0); Imm Gran Abs Auto 0.02 X10*3/uL (0.00-0.03); Imm Gran Pct Auto 0.2 % (0.0-0.4); Lymphocytes Percent Auto 22.8 % (20-40); Mean Corpuscular HGB Conc 34.1 g/dl (31.0-36.0); Mean Corpuscular Hemoglobin 31.5 pg (27.0-33.0); Mean Corpuscular Volume 92.2 fL (80.0-98.0); Mean Platelet Volume 10.3 fL (9.4-12.4); Monocytes Absolute Auto 0.5 X10*3/uL (0.1-1.2); Neutrophils Absolute Auto 6.2 x10*3/uL (2.0-8.3); Neutrophils Percent Auto 69.8 % (45-73); Platelet Count 182 X10*3/uL (160-400); Red Blood Count 4.64 X10*6/uL (4.60-5.80); Red Cell Distribution Width 12.3 % (11.0-16.0); White Blood Count 8.9 X10*3/uL (4.8-10.8)
[2022-02-25 21:22] LABS: Alanine Aminotransferase 75 U/L (0-40); Albumin Level 4.4 g/dL (3.5-5.0); Alkaline Phosphatase 64 U/L (39-117); Anion Gap 14 (12-20); Aspartate Amino Transferase 40 U/L (5-37); Bilirubin Total 1.2 mg/dL (0.0-1.0); Blood Urea Nitrogen 12 mg/dL (9-16); Calcium 9.3 mg/dL (8.4-10.2); Carbon Dioxide 30 mmol/L (22-29); Chloride 104 mmol/L (96-108); Creatinine Clr Calc Pharmacy 112.9; Estimated Glomerular Filt Rate > 60; Glucose Random 92 mg/dL (60-115); Potassium 4.2 mmol/L (3.3-5.1); Sodium 144 mmol/L (135-145); Total Protein 7.8 g/dL (6.5-8.0)
[2022-02-25 21:25] LABS: Appearance Urine Clear; Color Urine Yellow; Glucose Urine UA Negative (Negative); Leukocyte Esterase Urine Negative (Negative); Nitrite Urine Negative (Negative); Urine Blood Negative (Negative); Urine Ketones Negative (Negative); Urine Protein Negative (Neg-Trace)
--- NOTE | 2022-02-25 22:40 | ED_ITS ---
HPI - Abdominal Pain General Chief Complaint: Nausea/Vomiting/Diarrhea <KATIE Shook - Last Filed: 02/26/22 03:04> Stated Complaint: abd pain <KATIE Shook Last Filed: 02/26/22 03:04> Time Seen by Provider: 02/25/22 22:32 <KATIE Shook - Last Filed: 02/26/22 03:04> Source: patient <KATIE Shook Last Filed: 02/26/22 03:04> Mode of arrival: ambulatory <KATIE Shook Last Filed: 02/26/22 03:04> Limitations: no limitations <KATIE Shook Last Filed: 02/26/22 03:04> History of Present Illness HPI narrative: This is a 41-year-old male past medical history significant for Crohn's disease, colon resection, bowel obstructions, presenting to the emergency department with complaints of severe abdominal pain, nausea, vomiting, diarrhea times a few weeks worsening over the last few days. Patient reports he is having anywhere between 8-10 loose stools a day, intermittently he will note blood in stool. Patient reports 4 episodes of vomiting today he tells me he is vomiting bile. Has not been able to keep much down. Patient tells me he was seen history told him to come to the emergency department new or worsening symptoms. Patient is currently taking Humira once a week on . Patient tells me this is most pain he has been in. Patient denies fevers, chills, chest pain, shortness of, headache, dizziness. Denies drugs and alcohol <KATIE Shook Last Filed: 02/26/22 03:04> Related Data Home Medications: Home Medications Medication Instructions Recorded Confirmed adalimumab 40 mg/0.4 mL 40 mg subcut TH@0900 08/19/21 09/18/21 subcutaneous pen kit (Humira(CF) Pen) clonazepam 1 mg tablet 1 tab PO BID 08/19/21 09/18/21 loratadine 10 mg tablet 1 tab PO DAILY PRN Allergy Symptoms 08/19/21 09/18/21 multivitamin with folic acid 400 1 tab PO DAILY 08/19/21 09/18/21 mcg tablet (Daily-Davis (with folic acid)) omeprazole 20 mg capsule,delayed 40 cap PO DAILY@0630 08/19/21 09/18/21 release propranolol 10 mg tablet 1 tab PO BID 08/19/21 09/18/21 riboflavin (vitamin B2) 100 mg 2 tab PO BID 08/19/21 09/18/21 tablet (Vitamin B-2) tizanidine 4 mg tablet 1.5 tab PO BEDTIME PRN Muscle Spasm 08/19/21 09/18/21 zolpidem 10 mg tablet 1 tab PO BEDTIME 08/19/21 09/18/21 hydrocortisone 1 % topical cream 1 appl topical BID 09/18/21 09/18/21 tramadol 50 mg tablet 50 mg PO Q12H PRN Pain (Scale 09/18/21 09/18/21 Score 4-6) magnesium oxide 400 mg (241.3 mg 400 mg PO DAILY 09/26/21 magnesium) tablet Previous Rx's Medication Instructions Recorded oxycodone 10 mg tablet 10 mg PO TID PRN pain #30 tabs 09/19/21 prednisone 10 mg tablet See Rx Instructions .Route 09/19/21 .COMPLEX #45 tabs promethazine 25 mg tablet 25 mg PO TID PRN nausea and 10/22/21 vomiting #14 tabs promethazine 25 mg rectal 25 mg HI Q6H PRN nausea and 11/05/21 suppository vomiting #12 ea tramadol 50 mg tablet 50 mg PO Q6H PRN severe pain 11/05/21 (scale score 7-10) #6 tabs tinidazole 500 mg tablet 500 mg PO BID 2 weeks #28 tabs 01/26/22 prednisone 20 mg tablet 40 mg PO DAILY 7 days #14 tabs 02/10/22 tramadol 50 mg tablet 25 mg PO Q6H PRN pain #14 tabs 02/10/22 sumatriptan succinate 100 mg tablet 100 mg PO Q2H PRN migraine 02/13/22 headache 30 days #12 tabs hydrocortisone 1 %-pramoxine 1 % 1 appl HI QID #10 grams 02/23/22 rectal foam (Proctofoam HC) mesalamine 1,000 mg rectal 1 g HI BEDTIME 4 weeks #30 ea 02/23/22 suppository <KATIE Shook - Last Filed: 02/26/22 03:04> Allergies/Adverse Reactions: Allergies Allergy/AdvReac Type Severity Reaction Status Date / Time ondansetron [Ondansetron] Allergy Mild HIVES Verified 02/25/22 20:17 Sulfa (Sulfonamide Allergy Mild UNKNOWN Verified 02/25/22 20:17 Antibiotics) ketorolac Allergy Unknown Unknown Verified 02/25/22 20:17 meperidine [Demerol] Allergy Unknown Unknown Verified 02/25/22 20:17 metoclopramide [Reglan] Allergy Unknown Unknown Verified 02/25/22 20:17 morphine [Morphine] Allergy Unknown RASH Verified 02/25/22 20:17 haloperidol [From Haldol] Allergy Anaphylaxis Verified 02/25/22 20:17 ketamine Allergy Unknown Verified 02/25/22 20:17 From REGLAN Allergy Mild PT UNSURE Uncoded 02/23/22 08:44 BUT STATES HE IS ALLERGIC Compro Allergy Unknown Unknown Uncoded 02/23/22 08:44 From COMPAZINE Allergy Unknown ITCHING Uncoded 02/23/22 08:44 From Demerol Allergy Unknown ITCHY HIVES Uncoded 02/23/22 08:44 From Toradol Allergy Unknown UNK Uncoded 02/23/22 08:44 <KATIE Shook Last Filed: 02/26/22 03:04> Review of Systems Review of Systems Constitutional : No Weight loss, No Fever, No Chills, No Fatigue, No Malaise ENT/Mouth : No sore throat, No Rhinorrhea Eyes: No Eye Pain, No Swelling, No Redness Cardiovascular : No Chest Pain, No SOB, No Dyspnea on Exertion, No Orthopnea, No Edema, No Palpitations Respiratory : No Cough, No Sputum, No Wheezing Gastrointestinal : + Nausea, + Vomiting, + Diarrhea, No Constipation, + abdominal Pain, No Hematochezia, No Melena Genitourinary : No Dysuria, No Urinary Frequency, No Hematuria, Musculoskeletal : No joint pain, No Myalgias, No Joint Swelling Skin : No Skin Lesions, No rash Neuro : No Weakness, No Numbness, No Dizziness, No Headache Psych : No Anxiety/Panic, No Depression All other systems reviewed and are negative <KATIE Shook Last Filed: 02/26/22 03:04> Yes all other systems are reviewed and are negative <KATIE Shook - Last Filed: 02/26/22 03:04> [facility] Past Medical History Attestation statement: The following information was validated with the patient. <KATIE Shook - Last Filed: 02/26/22 03:04> Source: old records reviewed and nursing notes reviewed <KATIE Shook - Last Filed: 02/26/22 03:04> Medical History: Medical History Acute Crohn's disease Hx of ulcerative colitis Partial small bowel obstruction <KATIE Shook - Last Filed: 02/26/22 03:04> Surgical History: Surgical History History of esophagogastroduodenoscopy (EGD) History of surgery on arm Hx of colonoscopy <KATIE Shook - Last Filed: 02/26/22 03:04> Family History Family History: Family History Mother HTN (hypertension) <KATIE Shook - Last Filed: 02/26/22 03:04> Social History Social History: Social History Household Members: Spouse and Children Housing: House Do you presently have visiting nurse or other home services: No Alcohol intake: never Patient Tobacco Use Status: Never used Tobacco Use of substances other than those prescribed or required for medical reasons: No Advance Directives: No service: No Current occupational status: disabled <KATIE Shook - Last Filed: 02/26/22 03:04> Physical Exam ED Vital Signs: Vital Signs - 24 hr 02/25/22 20:18 02/25/22 23:19 02/25/22 23:40 Temperature 98.2 F Pulse Rate 81 76 79 Respiratory Rate 18 18 16 Blood Pressure 114/64 102/70 107/70 Pulse Oximetry 99 97 98 Oxygen Delivery Method Room Air Room Air Room Air 02/25/22 23:48 02/26/22 01:28 02/26/22 02:39 Temperature Pulse Rate 69 Respiratory Rate 16 14 16 Blood Pressure 131/83 Pulse Oximetry 97 Oxygen Delivery Method Room Air 02/26/22 04:54 Temperature Pulse Rate 73 Respiratory Rate 18 Blood Pressure 115/80 Pulse Oximetry 97 Oxygen Delivery Method Room Air BMI result Body Mass Index 27.4 vss <KATIE Shook - Last Filed: 02/26/22 03:04> Vital Signs - 24 hr 02/25/22 20:18 02/25/22 23:19 02/25/22 23:40 Temperature 98.2 F Pulse Rate 81 76 79 Respiratory Rate 18 18 16 Blood Pressure 114/64 102/70 107/70 Pulse Oximetry 99 97 98 Oxygen Delivery Method Room Air Room Air Room Air 02/25/22 23:48 02/26/22 01:28 02/26/22 02:39 Temperature Pulse Rate 69 Respiratory Rate 16 14 16 Blood Pressure 131/83 Pulse Oximetry 97 Oxygen Delivery Method Room Air 02/26/22 04:54 Temperature Pulse Rate 73 Respiratory Rate 18 Blood Pressure 115/80 Pulse Oximetry 97 Oxygen Delivery Method Room Air BMI result Body Mass Index 27.4 <Radha Watson MD - Last Filed: 02/26/22 05:43> Appearance: Alert.? Oriented X3.? No acute distress.? Patient appears uncomfortable Head: Normocephalic, atraumatic, no step-offs or deformities Eyes: Pupils equal, round and reactive to light.? ENT: Pharynx normal.? Neck: Normal inspection.? Neck supple.? CVS: Normal heart rate and rhythm.? Pulses normal.? Respiratory: No respiratory distress.? Breath sounds normal.? Abdomen: Abdomen is firm, distended, painful to palpation throughout with hypoactive bowel sounds. ? Skin: Skin warm and dry.? Normal skin color.? Normal skin turgor.? Extremities: No lower extremity edema.? No calf ttp. 5/5 strength to bilateral upper and lower extremities Neuro: Oriented X 3.? No motor deficit.? No sensory deficit. CN 2-12 intact <KATIE Shook - Last Filed: 02/26/22 03:04> Course Reevaluation(s) Reevaluation #1: CBC appears to be within normal limits. Chemistry with no acute electrolyte abnormalities requiring intervention. Patient's total bilirubin slightly higher than usual, transaminases elevated as well. Patient's tenderness is diffuse and not localized to the right upper quadrant, negative Castro's unlikely cholecystitis. Urine clean. CT of the abdomen and pelvis unable to identify a cause for patient's symptoms. No signs of bowel obstruction. <KATIE Shook - Last Filed: 02/26/22 03:04> Time: 23:27 <KATIE Shook - Last Filed: 02/26/22 03:04> Reevaluation #2: Patient still complaining of significant pain, abdomen is still distended and tender. Very nauseous appears uncomfortable. <KATIE Shook - Last Filed: 02/26/22 03:04> Time: 01:15 <KATIE Shook - Last Filed: 02/26/22 03:04> Reevaluation #3: Still complaining of pain. Sign out will be given to Dr. Watson pending improvement <KATIE Shook - Last Filed: 02/26/22 03:04> Time: 02:42 <KATIE Shook - Last Filed: 02/26/22 03:04> Additional Reevaluation(s): 0542: Patient will be admitted for intractable pain and N/V. <Radha Watson MD - Last Filed: 02/26/22 05:43> MDM - Abdominal Pain MDM Narrative Medical decision making narrative: 0 41-year-old male presenting to the emergency department with complaints of s evere abdominal pain, nausea, vomiting times a few days. Physical examination patient appears uncomfortable, abdomen is firm, distended, hypoactive bowel sounds and diffusely tender to palpation. Regular rate and rhythm. Lungs clear. Neuro nonfocal. Vital signs are stable. Concerns for possible obstruction, will obtain CT of the abdomen and pelvis to rule this out. No signs of acute abdomen at this time. Plan at this time is labs, imaging, urine. <KATIE Shook - Last Filed: 02/26/22 03:04> Medical Records Attestation: I reviewed the patient's medical records. <KATIE Shook - Last Filed: 02/26/22 03:04> Lab Data Attestation: I reviewed the patient's lab results. <KATIE Shook - Last Filed: 02/26/22 03:04> Result diagrams: : 02/25/22 20:55 02/25/22 20:56 <KATIE Shook - Last Filed: 02/26/22 03:04> Labs: Lab Results 02/25/22 02/25/22 02/25/22 Range/Units 20:55 20:56 21:17 WBC 8.9 (4.8-10.8) X10*3/uL RBC 4.64 (4.60-5.80) X10*6/uL Hgb 14.6 (14.0-18.0) g/dl Hct 42.8 (42.0-52.0) % MCV 92.2 (80.0-98.0) fL MCH 31.5 (27.0-33.0) pg MCHC 34.1 (31.0-36.0) g/dl RDW 12.3 (11.0-16.0) % Plt Count 182 D (160-400) X10*3/uL MPV 10.3 (9.4-12.4) fL Immature Gran % (Auto) 0.2 (0.0-0.4) % Neut % (Auto) 69.8 (45-73) % Lymph % (Auto) 22.8 (20-40) % Real % (Auto) 6.0 (2-11) % Eos % (Auto) 0.9 (0-4) % Baso % (Auto) 0.3 (0-2) % Lymph # (Auto) 2.0 (1.2-4.9) X10*3/uL Real # (Auto) 0.5 (0.1-1.2) X10*3/uL Eos # (Auto) 0.1 (0.0-0.4) X10*3/uL Baso # (Auto) 0.0 (0.0-0.2) X10*3/uL Abs Immat Gran (auto) 0.02 (0.00-0.03) X10*3/uL Absolute Neuts (auto) 6.2 (2.0-8.3) x10*3/uL Absolute Nucleated RBC 0.000 (0.0-0.012) X10*3/uL Nucleated RBC % (auto) 0.0 (0.0-0.2) /100WBC Sodium 144 (135-145) mmol/L Potassium 4.2 (3.3-5.1) mmol/L Chloride 104 (96-108) mmol/L Carbon Dioxide 30 H (22-29) mmol/L Anion Gap 14 (12-20) BUN 12 (9-16) mg/dL Creatinine 0.77 (0.5-1.4) mg/dL Estim Creat Clear Calc 112.9 Estimated GFR > 60 Random Glucose 92 (60-115) mg/dL Calcium 9.3 (8.4-10.2) mg/dL Total Bilirubin 1.2 H (0.0-1.0) mg/dL AST 40 H D (5-37) U/L ALT 75 H (0-40) U/L Alkaline Phosphatase 64 (39-117) U/L Total Creatine Kinase 72 (38-174) U/L Total Protein 7.8 (6.5-8.0) g/dL Albumin 4.4 (3.5-5.0) g/dL Lipase 22 (8-78) U/L Urine Color Yellow Urine Appearance Clear Urine pH 6.0 (5.0-8.0) Ur Specific [place] 1.020 (1.005-1.025) Urine Protein Negative (Neg-Trace) mg/dL Urine Glucose (UA) Negative (Negative) mg/dL Urine Ketones Negative (Negative) mg/dL Urine Blood Negative (Negative) Urine Nitrite Negative (Negative) Ur Leukocyte Esterase Negative (Negative) <KATIE Shook - Last Filed: 02/26/22 03:04> Lab Results 02/25/22 02/25/22 02/25/22 Range/Units 20:55 20:56 21:17 WBC 8.9 (4.8-10.8) X10*3/uL RBC 4.64 (4.60-5.80) X10*6/uL Hgb 14.6 (14.0-18.0) g/dl Hct 42.8 (42.0-52.0) % MCV 92.2 (80.0-98.0) fL MCH 31.5 (27.0-33.0) pg MCHC 34.1 (31.0-36.0) g/dl RDW 12.3 (11.0-16.0) % Plt Count 182 D (160-400) X10*3/uL MPV 10.3 (9.4-12.4) fL Immature Gran % (Auto) 0.2 (0.0-0.4) % Neut % (Auto) 69.8 (45-73) % Lymph % (Auto) 22.8 (20-40) % Real % (Auto) 6.0 (2-11) % Eos % (Auto) 0.9 (0-4) % Baso % (Auto) 0.3 (0-2) % Lymph # (Auto) 2.0 (1.2-4.9) X10*3/uL Real # (Auto) 0.5 (0.1-1.2) X10*3/uL Eos # (Auto) 0.1 (0.0-0.4) X10*3/uL Baso # (Auto) 0.0 (0.0-0.2) X10*3/uL Abs Immat Gran (auto) 0.02 (0.00-0.03) X10*3/uL Absolute Neuts (auto) 6.2 (2.0-8.3) x10*3/uL Absolute Nucleated RBC 0.000 (0.0-0.012) X10*3/uL Nucleated RBC % (auto) 0.0 (0.0-0.2) /100WBC Sodium 144 (135-145) mmol/L Potassium 4.2 (3.3-5.1) mmol/L Chloride 104 (96-108) mmol/L Carbon Dioxide 30 H (22-29) mmol/L Anion Gap 14 (12-20) BUN 12 (9-16) mg/dL Creatinine 0.77 (0.5-1.4) mg/dL Estim Creat Clear Calc 112.9 Estimated GFR > 60 Random Glucose 92 (60-115) mg/dL Calcium 9.3 (8.4-10.2) mg/dL Total Bilirubin 1.2 H (0.0-1.0) mg/dL AST 40 H D (5-37) U/L ALT 75 H (0-40) U/L Alkaline Phosphatase 64 (39-117) U/L Total Creatine Kinase 72 (38-174) U/L Total Protein 7.8 (6.5-8.0) g/dL Albumin 4.4 (3.5-5.0) g/dL Lipase 22 (8-78) U/L Urine Color Yellow Urine Appearance Clear Urine pH 6.0 (5.0-8.0) Ur Specific [place] 1.020 (1.005-1.025) Urine Protein Negative (Neg-Trace) mg/dL Urine Glucose (UA) Negative (Negative) mg/dL Urine Ketones Negative (Negative) mg/dL Urine Blood Negative (Negative) Urine Nitrite Negative (Negative) Ur Leukocyte Esterase Negative (Negative) <Radha Watson MD - Last Filed: 02/26/22 05:43> Critical Care Time Critical Care Time Critical Care Time: No <KATIE Shook - Last Filed: 02/26/22 03:04> Discharge Plan Discharge Clinical Impression: Abdominal pain, Nausea & vomiting, Diarrhea <KATIE Shook - Last Filed: 02/26/22 03:04> Patient Disposition: Admitted As Inpatient <KATIE Shook - Last Filed: 02/26/22 03:04> Instructions: Acute Nausea and Vomiting (ED), Acute Diarrhea (ED), Abdominal Pain (ED) <KATIE Shook - Last Filed: 02/26/22 03:04> Prescriptions: No Action sumatriptan succinate 100 mg tablet 100 mg PO Q2H PRN (Reason: migraine headache) 30 Days Qty: 12 6RF Rx Instructions: at onset of migraine, november 2 tabs per day or 4 tabs per week mesalamine 1,000 mg suppository 1 g HI BEDTIME 28 Days Qty: 30 0RF hydrocortisone 1 % cream 1 appl topical BID tramadol 50 mg tablet 50 mg PO Q12H PRN (Reason: Pain (Scale Score 4-6)) prednisone 10 mg tablet See Rx Instructions .Route .COMPLEX Qty: 45 0RF Rx Instructions: 10 mg orally; 5 tabs p.o. daily x3 days; 4 tabs p.o. daily x3 days; 3 tabs daily x3 days; 2 tabs daily x3 days; 1 tab daily x3 days oxycodone 10 mg tablet 10 mg PO TID PRN (Reason: pain) Qty: 30 0RF promethazine 25 mg suppository 25 mg HI Q6H PRN (Reason: nausea and vomiting) Qty: 12 0RF tramadol 50 mg tablet 50 mg PO Q6H PRN (Reason: severe pain (scale score 7-10)) Qty: 6 0RF prednisone 20 mg tablet 40 mg PO DAILY 7 Days Qty: 14 0RF tramadol 50 mg tablet 25 mg PO Q6H PRN (Reason: pain) Qty: 14 0RF tizanidine 4 mg tablet 1.5 tab PO BEDTIME PRN (Reason: Muscle Spasm) riboflavin (vitamin B2) [Vitamin B-2] 100 mg tablet 2 tab PO BID clonazepam 1 mg tablet 1 tab PO BID propranolol 10 mg tablet 1 tab PO BID omeprazole 20 mg capsule,delayed release(DR/EC) 40 cap PO DAILY@0630 zolpidem 10 mg tablet 1 tab PO BEDTIME loratadine 10 mg tablet 1 tab PO DAILY PRN (Reason: Allergy Symptoms) multivitamin with folic acid [Daily-Davis (with folic acid)] 400 mcg tablet 1 tab PO DAILY Humira(CF) Pen 40 mg/0.4 mL pen injector kit 40 mg subcut TH@0900 promethazine 25 mg tablet 25 mg PO TID PRN (Reason: nausea and vomiting) Qty: 14 0RF magnesium oxide 400 mg (241.3 mg magnesium) tablet 400 mg PO DAILY tinidazole 500 mg tablet 500 mg PO BID 14 Days Qty: 28 0RF Proctofoam HC 1-1 % foam 1 appl HI QID Qty: 10 0RF <KATIE Shook - Last Filed: 02/26/22 03:04> Referrals: Kyle Espinosa MD [Physician] - 1 day Edenilson Harris MD [Primary Care Provider] - 2 days <KATIE Shook - Last Filed: 02/26/22 03:04> Stand Alone Forms: Work/School Release <KATIE Shook - Last Filed: 02/26/22 03:04>
[2022-02-25 23:19] VITALS: BP 102/70; PULSE 76; RESP 18; O2SAT 97
[2022-02-25 23:40] VITALS: BP 107/70; PULSE 79; RESP 16; O2SAT 98
[2022-02-25 23:48] VITALS: RESP 16
[2022-02-25] MEDS: HYDROmorphone HCl 1 MG/ML SYRINGE IVPUSH (23:48)
[2022-02-26] MEDS: HYDROmorphone HCl 0.5 MG/0.5 ML SYRINGE IVPUSH ×2 (01:20→02:56)
[2022-02-26 01:28] VITALS: BP 131/83; PULSE 69; RESP 14; O2SAT 97
[2022-02-26 02:39] VITALS: RESP 16
[2022-02-26 02:45] LABS: Lipase 22 U/L (8-78)
[2022-02-26] MEDS: LORazepam 1 MG TABLET PO (03:41)
[2022-02-26 04:54] VITALS: BP 115/80; PULSE 73; RESP 18; O2SAT 97
== END 2022-02-26 06:39 | disposition home or self-care (01) ==
PROVIDERS: Physician Assistant; Emergency Provider Student in an Organized Health Care Education/Training Program; PCP Allergy & Immunology Allergy
DX: R10.9 Unspecified abdominal pain (principal); R11.2 Nausea with vomiting, unspecified; R19.7 Diarrhea, unspecified; K50.90 Crohn's disease, unspecified, without complications
CPT/HCPCS: 36415; 74176; 80053; 81003; 82550; 83690; 85025; 96365; 96366; 96375; 96376; 99285; J1170; J2550

== ENCOUNTER 2022-04-16 08:56 | Observation (INO) | payer OTHER, SELFPAY ==
--- NOTE | ~2022-04-16 | MR_ITS ---
EXAMINATION: MR LUMBAR SPINE WITHOUT CONTRAST CLINICAL INFORMATION: Severe low back pain. COMPARISON: None TECHNIQUE: MRI of the lumbar spine was obtained using routine sequences without contrast. FINDINGS: The lumbar vertebral bodies maintain normal heights and alignment. The disc heights are preserved. No bone marrow edema is seen. The distal spinal cord appears normal. The conus medullaris terminates normally at L2. The extraspinal soft tissues are within normal limits. SPINAL LEVELS: L1-L2: No posterior disc abnormality. No spinal canal or neural foraminal stenosis. L2-L3: No posterior disc abnormality. No spinal canal or neural foraminal stenosis. L3-L4: No posterior disc abnormality. No spinal canal or neural foraminal stenosis. L4-L5: Mild disc bulging with mild facet arthropathy. No spinal canal or neural foraminal stenosis. L5-S1: Disc bulging with mild facet arthropathy. No spinal canal stenosis. Mild left neural foraminal stenosis. MR/MR lumbar spine wo con IMPRESSION: Minimal degenerative change at L4-L5 and L5-S1. No spinal canal stenosis or nerve root compression identified.
--- NOTE | ~2022-04-16 | CT_ITS ---
EXAMINATION: CT ABDOMEN AND PELVIS WITH CONTRAST CLINICAL INFORMATION: Right upper quadrant/right lower quadrant pain. Nausea, vomiting, diarrhea. History of Crohn's. COMPARISON: None TECHNIQUE: Multidetector volumetric images were obtained from the superior aspect of the liver through the pubic symphysis following administration 85 mL of Omnipaque 350 intravenous contrast. Sagittal and coronal reformatted images were obtained on the technologist's workstation. Oral contrast: No This CT examination was performed using dose optimization techniques as appropriate, variously including the following: *Automated exposure control *Adjustment of mA and/or kV according to patient size (this includes techniques or standardized protocols for targeted exams where dose is matched to indication/reason for exam; i.e. extremities or head) *Use of iterative reconstruction technique DLP: 511 mGy-cm FINDINGS: LUNG BASES: The lung bases appear clear, with no evidence of inflammation or nodules. LIVER, GALLBLADDER, AND BILIARY TREE: The liver appears unremarkable in size, shape, and attenuation. No focal hepatic lesion or biliary ductal dilatation is appreciated. Status post cholecystectomy. PANCREAS: Unremarkable SPLEEN: Unremarkable ADRENAL GLANDS: Unremarkable KIDNEYS AND URETERS: The kidneys appear unremarkable in size, shape, and attenuation. No hydronephrosis, hydroureter, or calculi seen. BLADDER: Unremarkable GASTROINTESTINAL TRACT/MESENTERY: Evidence of subtotal colectomy. Right lower quadrant small bowel anastomotic nuria as well. No evidence of intestinal obstruction or free air. Multiple left upper quadrant mesenteric surgical clips, unchanged. ABDOMINAL WALL: No significant hernia is appreciated. LYMPH NODES: No evidence of adenopathy by size criteria. VASCULAR: Unremarkable PELVIC VISCERA: Unremarkable OSSEOUS STRUCTURES: Unremarkable CT/CT abdomen pelvis w IV con IMPRESSION: No acute finding.
[2022-04-16 09:06] VITALS: BP 116/72; PULSE 88; RESP 20; TEMP 36.4; O2SAT 97; BMI 26.6
[2022-04-16 09:18] LABS: MANUAL DIFF FLAG NO
[2022-04-16 09:19] LABS: Basophils Percent Auto 0.5 % (0-2); Eosinophils Absolute Auto 0.1 X10*3/uL (0.0-0.4); Eosinophils Percent Auto 1.2 % (0-4); Hematocrit 41.9 % (42.0-52.0); Hemoglobin 14.5 g/dl (14.0-18.0); Imm Gran Abs Auto 0.01 X10*3/uL (0.00-0.03); Imm Gran Pct Auto 0.2 % (0.0-0.4); Lymphocytes Percent Auto 35.7 % (20-40); Mean Corpuscular HGB Conc 34.6 g/dl (31.0-36.0); Mean Corpuscular Hemoglobin 31.3 pg (27.0-33.0); Mean Corpuscular Volume 90.5 fL (80.0-98.0); Mean Platelet Volume 10.4 fL (9.4-12.4); Monocytes Absolute Auto 0.4 X10*3/uL (0.1-1.2); Monocytes Percent Auto 6.7 % (2-11); Neutrophils Absolute Auto 3.1 x10*3/uL (2.0-8.3); Neutrophils Percent Auto 55.7 % (45-73); Platelet Count 173 X10*3/uL (160-400); Red Blood Count 4.63 X10*6/uL (4.60-5.80); Red Cell Distribution Width 12.7 % (11.0-16.0); White Blood Count 5.6 X10*3/uL (4.8-10.8)
[2022-04-16 09:37] LABS: Alanine Aminotransferase 44 U/L (0-40); Albumin Level 4.4 g/dL (3.5-5.0); Alkaline Phosphatase 60 U/L (39-117); Anion Gap 13 (12-20); Aspartate Amino Transferase 28 U/L (5-37); Bilirubin Direct 0.3 mg/dL (0.0-0.5); Bilirubin Total 0.9 mg/dL (0.0-1.0); Blood Urea Nitrogen 11 mg/dL (9-16); Calcium 9.8 mg/dL (8.4-10.2); Carbon Dioxide 28 mmol/L (22-29); Chloride 102 mmol/L (96-108); Creatinine Clr Calc Pharmacy 111.9; Estimated Glomerular Filt Rate > 60; Glucose Random 110 mg/dL (60-115); Lipase 33 U/L (8-78); Sodium 139 mmol/L (135-145); Total Protein 7.7 g/dL (6.5-8.0)
[2022-04-16 09:40] LABS: COVID-19 Test Negative (Negative); IDNOW Serial# 16C4AD1C
--- OUTSIDE RECORDS SUMMARY | 2022-04-16 10:35 | XMS_ITS ---
:1980 Author Care Team Providers Name Role Phone [facility] Referring Provider [phone] [facility] Referring Provider [phone] Allergies None recorded. Medications Name Status Start Date Stop Date ? ? Paxlovid 300 mg (150 mg x 2)-100 mg tablets in a dose pack (EUA) Active ? Not available Take 3 tablets twice a day by oral route for 5 days. Problems None recorded. Procedures None recorded. Results Lab Results None recorded. Past Encounters 02/27/2022 Covid-19 Matilde Fairbanks MD: [address] [place] [phone], Ph. Social History None recorded. Vaccine List None recorded. Plan of Care Reminders Provider Appointments None recorded. ? ? Lab None recorded. ? ? Referral None recorded. ? ? Procedures None recorded. ? ? Surgeries None recorded. ? ? Imaging None recorded. ? ? Vitals Height Weight Blood Pressure (1) 5 ft 5 in (1) 160 lbs (1) 97/56 mm[Hg] (2) 5 ft 5 in (2) 160 lbs (2) 97/56 mm[Hg]
--- OUTSIDE RECORDS SUMMARY | 2022-04-16 10:36 | XMS_ITS | Encounter Summary ---
:1980 Author Care Team Providers Name Role Phone [facility] Referring Provider [phone] [facility] Referring Provider [phone] Reason for Visit Chest Pain, Cough, Fever/Chills Assessment and Plan Assessment Note service called for +COVID, eval for pax lovid found 41 trey with crohns dz on humira, 2 4 hrs onset cough, fever, noted +COVID rapid pt stable at rest, however SOB and eleva tamie WOB with minimal exertion given comorbidities, immunosuppresant, ~ 24 hrs onset sx reasonable candidate for paxlovid rx sent to [facility] return to primary team notify service if worsening WOB, fever 1. COVID-19 ? Paxlovid 300 mg (150 mg x 2)-100 mg t ablets in a dose pack (EUA) Discussion Note: None recorded.Patient educational handouts: No information available. Plan of Care Reminders Provider Appointments None recorded. ? ? Lab None recorded. ? ? Referral None recorded. ? ? Procedures None recorded. ? ? Surgeries None recorded. ? ? Imaging None recorded. ? ? Medications Name Start Date ? ? Paxlovid 300 mg (150 mg x 2)-100 mg tablets in a dose pack (EUA) ? Take 3 tablets twice a day by oral route for 5 days. Medications Administered None recorded. Vitals Height Weight Blood Pressure (1) 5 ft 5 in (1) 160 lbs (1) 97/56 mm[Hg] (2) 5 ft 5 in (2) 160 lbs (2) 97/56 mm[Hg] Results Lab Results None recorded. Allergies None recorded. Problems None recorded. Procedures None recorded. Vaccine List None recorded. Social History None recorded. Functional Status Unknown. Past Encounters 02/27/2022 Covid-19 Matilde Fairbanks MD: [address] [facility], [place] [phone], Ph. History of Present Illness Note: <p><strong>HPI: </strong>

Allergic to Meperidine, morphine onda nsetron, Prochlorperazine edisylate and maleate. Patient with home Positive Covid test last night. Symptom onset yesterday. Is on Humira for Crohns Disease. Please evaluate and see if patient will qualify for Paxlovid treatment.
................................................................. ............................................................................

<strong>CRC Nursing Assessment: </strong>

Comments: CRC RN did not requireany additional information to process this visit. </p> Review of Systems None recorded. Physical Exam None recorded.
--- NOTE | 2022-04-16 11:02 | ED.ABDPAIN ---
HPI - Abdominal Pain General Chief Complaint: Abdominal Pain Stated Complaint: Crohns Flareup Time Seen by Provider: 04/16/22 11:01 Source: patient Mode of arrival: ambulatory History of Present Illness HPI narrative: 41-year-old male with a past medical history of IBD s/p total colectomy with colostomy and J-pouch s/p colostomy reversal, bowel obstructions, on weekly Humira, followed by GI Dr. Espinosa, chronic abdominal pain on chronic opiates presenting to the ED complaining diffuse severe abdominal pain, nausea, vomiting, and diarrhea x2 days. Reports about 5 episodes of emesis with intermittent bloody streaks, and intermittent bloody diarrhea which was improving today. Reports abdomen feels distended. Denies known fever, chills, suspicious food intake, recent travel, dysuria/hematuria MD elicited complaint: abdominal pain Onset (ago): day(s) Related Data Home Medications Medication Instructions Recorded Confirmed adalimumab 40 mg/0.4 mL 40 mg subcut TH@0900 08/19/21 09/18/21 subcutaneous pen kit (Humira(CF) Pen) clonazepam 1 mg tablet 1 tab PO BID 08/19/21 09/18/21 loratadine 10 mg tablet 1 tab PO DAILY PRN Allergy Symptoms 08/19/21 09/18/21 multivitamin with folic acid 400 1 tab PO DAILY 08/19/21 09/18/21 mcg tablet (Daily-Davis (with folic acid)) omeprazole 20 mg capsule,delayed 40 cap PO DAILY@0630 08/19/21 09/18/21 release riboflavin (vitamin B2) 100 mg 2 tab PO BID 08/19/21 09/18/21 tablet (Vitamin B-2) zolpidem 10 mg tablet 1 tab PO BEDTIME 08/19/21 09/18/21 hydrocortisone 1 % topical cream 1 appl topical BID 09/18/21 09/18/21 tramadol 50 mg tablet 50 mg PO Q12H PRN Pain (Scale 09/18/21 09/18/21 Score 4-6) magnesium oxide 400 mg (241.3 mg 400 mg PO DAILY 09/26/21 magnesium) tablet Previous Rx's Medication Instructions Recorded oxycodone 10 mg tablet 10 mg PO TID PRN pain #30 tabs 09/19/21 prednisone 10 mg tablet See Rx Instructions .Route 09/19/21 .COMPLEX #45 tabs promethazine 25 mg tablet 25 mg PO TID PRN nausea and 10/22/21 vomiting #14 tabs promethazine 25 mg rectal 25 mg AL Q6H PRN nausea and 11/05/21 suppository vomiting #12 ea tramadol 50 mg tablet 50 mg PO Q6H PRN severe pain 11/05/21 (scale score 7-10) #6 tabs tinidazole 500 mg tablet 500 mg PO BID 2 weeks #28 tabs 01/26/22 prednisone 20 mg tablet 40 mg PO DAILY 7 days #14 tabs 02/10/22 tramadol 50 mg tablet 25 mg PO Q6H PRN pain #14 tabs 02/10/22 sumatriptan succinate 100 mg tablet 100 mg PO Q2H PRN migraine 02/13/22 headache 30 days #12 tabs hydrocortisone 1 %-pramoxine 1 % 1 appl AL QID #10 grams 02/23/22 rectal foam (Proctofoam HC) tizanidine 4 mg tablet 6 mg PO BEDTIME PRN Muscle Spasm 03/25/22 30 days #135 tabs propranolol 10 mg tablet 10 mg PO BID 90 days #180 tabs 03/26/22 mesalamine 1,000 mg rectal 1,000 mg AL BEDTIME #30 supp 04/01/22 suppository Allergies Allergy/AdvReac Type Severity Reaction Status Date / Time ondansetron [Ondansetron] Allergy Mild HIVES Verified 02/25/22 20:17 Sulfa (Sulfonamide Allergy Mild UNKNOWN Verified 02/25/22 20:17 Antibiotics) ketorolac Allergy Unknown Unknown Verified 02/25/22 20:17 meperidine [Demerol] Allergy Unknown Unknown Verified 02/25/22 20:17 metoclopramide [Reglan] Allergy Unknown Unknown Verified 02/25/22 20:17 morphine [Morphine] Allergy Unknown RASH Verified 02/25/22 20:17 haloperidol [From Haldol] Allergy Anaphylaxis Verified 02/25/22 20:17 ketamine Allergy Unknown Verified 02/25/22 20:17 From REGLAN Allergy Mild PT UNSURE Uncoded 02/23/22 08:44 BUT STATES HE IS ALLERGIC Compro Allergy Unknown Unknown Uncoded 02/23/22 08:44 From COMPAZINE Allergy Unknown ITCHING Uncoded 02/23/22 08:44 From Demerol Allergy Unknown ITCHY HIVES Uncoded 02/23/22 08:44 From Toradol Allergy Unknown UNK Uncoded 02/23/22 08:44 Review of Systems Review of Systems Constitutional:No Fever, No Chills, No Fatigue, No Malaise ENT/Mouth: No Hearing loss, No Ear Pain, No Nasal Congestion, No Sinus Pain, No Hoarseness, No sore throat, No Rhinorrhea, No Swallowing Difficulty Eyes: No Eye Pain, No Swelling, No Redness, No Vision Changes Cardiovascular: No Chest Pain, No SOB, No Dyspnea on Exertion, No Orthopnea, No Edema, No Palpitations Respiratory: No Cough, No Sputum, NNo Dyspnea Gastrointestinal: + Nausea, + Vomiting, + Diarrhea, No Constipation, No Abdominal pain, No Melena Genitourinary: No irregular bleeding, No Dysuria, No Urinary Frequency, No Hematuria, No Urinary Incontinence/retention, No Flank Pain, No Urinary Flow Changes, No Hesitancy Musculoskeletal: No joint pain, No Myalgias, No Joint Swelling Skin: No Skin Lesions, No rash Neuro: No Weakness, No Numbness, No Paresthesias, No Loss of Consciousness, No Dizziness, No Headache Yes all other systems are reviewed and are negative Constitutional: Reports as per [facility] Past Medical History Attestation statement: The following information was validated with the patient. Medical History Acute Crohn's disease Hx of ulcerative colitis Partial small bowel obstruction Surgical History History of esophagogastroduodenoscopy (EGD) History of surgery on arm Hx of colonoscopy Family History Family History Mother HTN (hypertension) Social History Social History Household Members: Spouse and Children Housing: House Do you presently have visiting nurse or other home services: No Alcohol intake: never Patient Tobacco Use Status: Never used Tobacco Advance Directives: No Advance Directives Information Provided: No service: No Current occupational status: disabled Physical Exam ED Vital Signs: Vital Signs - 24 hr 04/16/22 09:06 Temperature 97.6 F Pulse Rate 88 Respiratory Rate 20 Blood Pressure 116/72 Pulse Oximetry 97 Oxygen Delivery Method Room Air BMI result Body Mass Index 26.6 Const General: cooperative, healthy appearing, no acute distress, alert and awake Orientation/consciousness: patient oriented x3 Limitations: no limitations HENMT Head: Yes normal to inspection and Yes atraumatic Ears: hearing grossly normal bilaterally General nose exam: Normal external nose present Face and sinus: Yes normal facial exam Eyes General: appearance normal, both eyes and all related structures EOM: EOMs intact bilaterally Neck Neck: Yes normal visual inspection and Yes no meningeal signs Resp Effort & Inspection: normal respiratory effort and no respiratory distress Auscultation: clear to auscultation bilaterally Cardio Rate: regular rate Heart sounds: S1 normal heart sound present and S2 normal heart sound present GI Inspection: Yes normal to inspection and Yes distended (firm) Palpation (GI): Soft to palpation, Tenderness to palpation present (GI) (diffusely > RUQ/RLQ) with no rebound tenderness, no guarding and not rigid General: Yes no CVA tenderness Back/Spine/Pelvis Back: no CVA tenderness Skin Rashes: no rashes Wounds: no wounds Neuro General: patient oriented x3, tone normal and no meningeal signs Gait exam (Neuro): Normal gait present Extrem General: Yes normal to inspection Course Course Course Narrative: - no leukocytosis. Labs otherwise unremarkable. ESR / CRP WNL - UA negative 1338--CT abdomen pelvis w IV con IMPRESSION: ? No acute finding. >> will consult patient's GI doctor, Dr. Espinosa >Dr. Espinosa recommended C diff, GI stool panel and admit for observation. No steroids recommended at this time MDM - Abdominal Pain MDM Narrative Medical decision making narrative: 41-year-old male with a past medical history of IBD s/p total colectomy with colostomy and J-pouch s/p colostomy reversal, bowel obstructions, on weekly Humira, followed by GI Dr. Espinosa, chronic abdominal pain on chronic opiates presenting to the ED complaining diffuse severe abdominal pain, nausea, vomiting, and diarrhea x2 days. on exam vital signs stable, NAD, nontoxic appearing, abdomen distended, firm, diffusely tender, no rebound or guarding. Concern for UC/Crohn's flare vs SBO vs ? appendicitis/diverticulitis. Rule out metabolic abnormalities including dehydration. Lower suspicioion for cholecysitis as RUQ is acute on chronic plan: Labs, UA, IVF, pain management, CT AP, GI consult Differential Diagnosis Differential diagnosis: Likely abdominal pain, acute appendicitis, diverticulitis, gastroenteritis, gastritis, pancreatitis and small bowel obstruction Medical Records Attestation: I reviewed the patient's medical records. Lab Data Attestation: I reviewed the patient's lab results. Result diagrams: 04/16/22 09:13 04/16/22 09:13 Labs: Lab Results 04/16/22 04/16/22 04/16/22 Range/Units 09:13 09:13 09:13 WBC 5.6 (4.8-10.8) X10*3/uL RBC 4.63 (4.60-5.80) X10*6/uL Hgb 14.5 (14.0-18.0) g/dl Hct 41.9 L (42.0-52.0) % MCV 90.5 (80.0-98.0) fL MCH 31.3 (27.0-33.0) pg MCHC 34.6 (31.0-36.0) g/dl RDW 12.7 (11.0-16.0) % Plt Count 173 (160-400) X10*3/uL MPV 10.4 (9.4-12.4) fL Immature Gran % (Auto) 0.2 (0.0-0.4) % Neut % (Auto) 55.7 (45-73) % Lymph % (Auto) 35.7 (20-40) % [place] % (Auto) 6.7 (2-11) % Eos % (Auto) 1.2 (0-4) % Baso % (Auto) 0.5 (0-2) % Lymph # (Auto) 2.0 (1.2-4.9) X10*3/uL [place] # (Auto) 0.4 (0.1-1.2) X10*3/uL Eos # (Auto) 0.1 (0.0-0.4) X10*3/uL Baso # (Auto) 0.0 (0.0-0.2) X10*3/uL Abs Immat Gran (auto) 0.01 (0.00-0.03) X10*3/uL Absolute Neuts (auto) 3.1 (2.0-8.3) x10*3/uL Absolute Nucleated RBC 0.000 (0.0-0.012) X10*3/uL Nucleated RBC % (auto) 0.0 (0.0-0.2) /100WBC ESR (0-15) MM/HR Sodium 139 (135-145) mmol/L Potassium 4.0 (3.3-5.1) mmol/L Chloride 102 (96-108) mmol/L Carbon Dioxide 28 (22-29) mmol/L Anion Gap 13 (12-20) BUN 11 (9-16) mg/dL Creatinine 0.74 (0.5-1.4) mg/dL Estim Creat Clear Calc 111.9 Estimated GFR > 60 Random Glucose 110 (60-115) mg/dL Calcium 9.8 (8.4-10.2) mg/dL Magnesium 2.0 (1.6-2.6) mg/dL Total Bilirubin 0.9 (0.0-1.0) mg/dL Direct Bilirubin 0.3 (0.0-0.5) mg/dL AST 28 (5-37) U/L ALT 44 H (0-40) U/L Alkaline Phosphatase 60 (39-117) U/L C-Reactive Protein 0.03 (< or = 0.50) mg/dL Total Protein 7.7 (6.5-8.0) g/dL Albumin 4.4 (3.5-5.0) g/dL Lipase 33 (8-78) U/L Urine Color Urine Appearance Urine pH (5.0-9.0) Ur Specific [place] (1.005-1.025) Urine Protein (Neg-Trace) mg/dL Urine Glucose (UA) (Negative) mg/dL Urine Ketones (Negative) mg/dL Urine Blood (Negative) Urine Nitrite (Negative) Ur Leukocyte Esterase (Negative) COVID-19 (LONG) Negative (Negative) COVID-19 Clin Com See Note 04/16/22 04/16/22 Range/Units 09:13 12:58 WBC (4.8-10.8) X10*3/uL RBC (4.60-5.80) X10*6/uL Hgb (14.0-18.0) g/dl Hct (42.0-52.0) % MCV (80.0-98.0) fL MCH (27.0-33.0) pg MCHC (31.0-36.0) g/dl RDW (11.0-16.0) % Plt Count (160-400) X10*3/uL MPV (9.4-12.4) fL Immature Gran % (Auto) (0.0-0.4) % Neut % (Auto) (45-73) % Lymph % (Auto) (20-40) % [place] % (Auto) (2-11) % Eos % (Auto) (0-4) % Baso % (Auto) (0-2) % Lymph # (Auto) (1.2-4.9) X10*3/uL [place] # (Auto) (0.1-1.2) X10*3/uL Eos # (Auto) (0.0-0.4) X10*3/uL Baso # (Auto) (0.0-0.2) X10*3/uL Abs Immat Gran (auto) (0.00-0.03) X10*3/uL Absolute Neuts (auto) (2.0-8.3) x10*3/uL Absolute Nucleated RBC (0.0-0.012) X10*3/uL Nucleated RBC % (auto) (0.0-0.2) /100WBC ESR 7 (0-15) MM/HR Sodium (135-145) mmol/L Potassium (3.3-5.1) mmol/L Chloride (96-108) mmol/L Carbon Dioxide (22-29) mmol/L Anion Gap (12-20) BUN (9-16) mg/dL Creatinine (0.5-1.4) mg/dL Estim Creat Clear Calc Estimated GFR Random Glucose (60-115) mg/dL Calcium (8.4-10.2) mg/dL Magnesium (1.6-2.6) mg/dL Total Bilirubin (0.0-1.0) mg/dL Direct Bilirubin (0.0-0.5) mg/dL AST (5-37) U/L ALT (0-40) U/L Alkaline Phosphatase (39-117) U/L C-Reactive Protein (< or = 0.50) mg/dL Total Protein (6.5-8.0) g/dL Albumin (3.5-5.0) g/dL Lipase (8-78) U/L Urine Color Yellow Urine Appearance Clear Urine pH 7.5 (5.0-9.0) Ur Specific [place] 1.020 (1.005-1.025) Urine Protein Negative (Neg-Trace) mg/dL Urine Glucose (UA) Negative (Negative) mg/dL Urine Ketones Negative (Negative) mg/dL Urine Blood Negative (Negative) Urine Nitrite Negative (Negative) Ur Leukocyte Esterase Negative (Negative) COVID-19 (LONG) (Negative) COVID-19 Clin Com Discharge Plan Discharge Clinical Impression: IBD (inflammatory bowel disease) Patient Disposition: Admitted as Observation
[2022-04-16] MEDS: iohexoL 350 MG/ML 100 ML INFUS..BTL 85 ML IV (11:41)
[2022-04-16 11:50] LABS: C Reactive Protein 0.03 mg/dL (< or = 0.50)
[2022-04-16] MEDS: 0.9 % Sodium Chloride 1,000 ML 999 ML IV (11:55)
[2022-04-16] MEDS: HYDROmorphone HCl 0.5 MG/0.5 ML SYRINGE IVPUSH (11:58)
--- NOTE | 2022-04-16 12:04 | PC.NURSE ---
patient a/ox4 . sunitharla . heart rate regular at 75 beats per minute .lungs clear . skin pink warm and dry .abdomen distended and hard . positive bowel sounds in all four quadrants . patient reports pain level 10/10 . Iv placed in left AC . medication given as ordered . Patient has gone to CT for scan . IV fluids have been started . patient is aware of plan of care .
[2022-04-16 12:21] LABS: Erythrocyte Sedimentation Rate 7 MM/HR (0-15)
[2022-04-16] MEDS: diphenhydrAMINE HCL 50 MG/ML VIAL IVPUSH (12:49)
[2022-04-16] MEDS: HYDROmorphone HCl 1 MG/ML SYRINGE IVPUSH (12:49)
[2022-04-16 13:09] LABS: Appearance Urine Clear; Color Urine Yellow; Glucose Urine UA Negative (Negative); Leukocyte Esterase Urine Negative (Negative); Nitrite Urine Negative (Negative); PH 7.5 (5.0-9.0); Urine Blood Negative (Negative); Urine Ketones Negative (Negative); Urine Protein Negative (Neg-Trace)
--- NOTE | 2022-04-16 14:43 | PM.IMHP ---
History of Present Illness Date of Service: 04/16/22 <KATIE Braden - Last Filed: 04/16/22 15:04> Attending physician on admission: Emilee Agrawal <KATIE Braden - Last Filed: 04/16/22 15:04> Chief Complaint: n/v/d, po intolerance <KATIE Braden - Last Filed: 04/16/22 15:04> 41 year old male with history of anxiety, Crohn's disease on humira and mesalamine, and migraines presented to the ED this morning for evaluation of severe right-sided abdominal pain. 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 Espinosa. He states he has diarrhea at baseline following colostomy/reversal but noted some BRBPR yesterday. There has also been nonblood emesis x3 days and severe 10/10 right-sided abdominal pain radiating to the right back as well. Not tolerating oral fluids or food. He is on tramadol and oxycodone at home without improvement. Feels abdomen is distended. Denies fevers, chills, suspicious food intake, or recent travel. Lives at home with . IN the ED, CT abd/pelvis without abnormality. No leukocytosis. Renal function and liver function normal. H/H stable. Case discussed with Dr. Espinosa who recommends observation. <KATIE Braden - Last Filed: 04/16/22 15:04> Review of Systems Review of Systems: General: No fevers, malaise, unintentional weight loss Cardiovascular: No chest pain, palpitations, or leg edema Respiratory: No shortness of breath, wheezing, cough GI: +severe abd pain, +n/v/d, +hematochezia. No constipation, melena : No dysuria, hematuria, increased urinary frequency. Neuro: No headaches, weakness, paresthesias Skin: No rashes or lesions <KATIE Braden - Last Filed: 04/16/22 15:04> [facility] Medical History: Medical History (Updated 04/16/22 @ 14:57 by KATIE Braden) Anxiety Crohn's disease IBD (inflammatory bowel disease) Migraine Partial small bowel obstruction <KATIE Braden - Last Filed: 04/16/22 15:04> Family History: Family History Mother HTN (hypertension) <KATIE Braden - Last Filed: 04/16/22 15:04> Surgical History: Surgical History (Updated 04/16/22 @ 14:53 by KATIE Braden) History of colostomy reversal History of esophagogastroduodenoscopy (EGD) History of surgery on arm Hx of colonoscopy S/P colostomy <KATIE Braden - Last Filed: 04/16/22 15:04> Social History: Social History Household Members: Spouse and Children Housing: House Do you presently have visiting nurse or other home services: No Alcohol intake: never Patient Tobacco Use Status: Never used Tobacco Advance Directives: No Advance Directives Information Provided: No service: No Current occupational status: disabled <KATIE Braden - Last Filed: 04/16/22 15:04> Meds Allergies/Adverse reactions: Allergies Allergy/AdvReac Type Severity Reaction Status Date / Time ondansetron [Ondansetron] Allergy Mild HIVES Verified 02/25/22 20:17 Sulfa (Sulfonamide Allergy Mild UNKNOWN Verified 02/25/22 20:17 Antibiotics) ketorolac Allergy Unknown Unknown Verified 02/25/22 20:17 meperidine [Demerol] Allergy Unknown Unknown Verified 02/25/22 20:17 metoclopramide [Reglan] Allergy Unknown Unknown Verified 02/25/22 20:17 morphine [Morphine] Allergy Unknown RASH Verified 02/25/22 20:17 haloperidol [From Haldol] Allergy Anaphylaxis Verified 02/25/22 20:17 ketamine Allergy Unknown Verified 02/25/22 20:17 From REGLAN Allergy Mild PT UNSURE Uncoded 02/23/22 08:44 BUT STATES HE IS ALLERGIC Compro Allergy Unknown Unknown Uncoded 02/23/22 08:44 From COMPAZINE Allergy Unknown ITCHING Uncoded 02/23/22 08:44 From Demerol Allergy Unknown ITCHY HIVES Uncoded 02/23/22 08:44 From Toradol Allergy Unknown UNK Uncoded 02/23/22 08:44 <KATIE Braden - Last Filed: 04/16/22 15:04> Active Medications: Current Medications Hydromorphone HCl (Hydromorphone Hcl 0.5 Mg/0.5 Ml Syringe) 0.5 mg IVPUSH Q3H PRN; Protocol PRN Reason: Pain, Severe (Pain Scale 7-10) Acetaminophen (Ofirmev) 1,000 mg in 100 mls @ 400 mls/hr IV Q6H PRN PRN Reason: Pain, Severe (Pain Scale 7-10) Pharmacy Consult (Consult Rx Perform Med Rec) 1 each MISCELLANE ONCE PRN PRN Reason: Consult order <KATIE Braden - Last Filed: 04/16/22 15:04> Home medications: Home Medications Medication Instructions Recorded Confirmed Last Taken Type adalimumab 40 mg/0.4 mL 40 mg subcut TH@0900 08/19/21 04/16/22 04/16/22 History subcutaneous pen kit (Humira(CF) Pen) clonazepam 1 mg tablet 1 tab PO BID 08/19/21 04/16/22 04/15/22 History loratadine 10 mg tablet 1 tab PO DAILY PRN Allergy Symptoms 08/19/21 04/16/22 Unknown History omeprazole 20 mg capsule,delayed 2 cap PO DAILY@0630 08/19/21 04/16/22 Unknown History release zolpidem 10 mg tablet 1 tab PO BEDTIME 08/19/21 04/16/22 09/17/21 History hydrocortisone 1 % topical cream 1 appl topical BID PRN Itching 09/18/21 04/16/22 09/18/21 History tramadol 50 mg tablet 50 mg PO Q12H PRN Pain (Scale 09/18/21 04/16/22 Unknown History Score 4-6) <KATIE Braden - Last Filed: 04/16/22 15:04> Physical Exam Vital Signs and Narrative: Vital Signs: Last Vital Signs Temp 97.6 F 04/16/22 09:06 Pulse 88 04/16/22 09:06 Resp 20 04/16/22 09:06 BP 116/72 04/16/22 09:06 Pulse Ox 97 04/16/22 09:06 O2 Del Method 04/16/22 09:06 BMI result Body Mass Index 26.6 <KATIE Braden - Last Filed: 04/16/22 15:04> Constitutional - Awake and Alert, No apparent distress Eyes - PERRLA, EOMI Cardiovascular - S1S2, RRR, No edema Respiratory - Normal lung expansion, Normal respiratory effort, No respiratory distress, CTA bilaterally Gastrointestinal - Moderate abdominal distension, diffuse ttp greated in RUQ and RLQ with guarding. +BS Extremities - no calf tenderness bilaterally, no swelling Skin - Warm/Dry Neurological - Alert & oriented x3, CN II-XII in tact. 5/5 strength BUE and BLE. No sensory deficit Psychological - Appropriate affect <KATIE Braden - Last Filed: 04/16/22 15:04> Results Labs CBC and Chem 7: : 04/17/22 07:18 04/16/22 09:13 <KATIE Braden - Last Filed: 04/16/22 15:04> Labs: Laboratory Results - last 24 hr 04/16/22 04/16/22 04/16/22 09:13 09:13 09:13 MCV 90.5 MCH 31.3 MCHC 34.6 RDW 12.7 Plt Count 173 MPV 10.4 Immature Gran % (Auto) 0.2 Neut % (Auto) 55.7 Lymph % (Auto) 35.7 [place] % (Auto) 6.7 Eos % (Auto) 1.2 Baso % (Auto) 0.5 Lymph # (Auto) 2.0 [place] # (Auto) 0.4 Eos # (Auto) 0.1 Baso # (Auto) 0.0 Abs Immat Gran (auto) 0.01 Absolute Neuts (auto) 3.1 Absolute Nucleated RBC 0.000 Nucleated RBC % (auto) 0.0 ESR Anion Gap 13 Estim Creat Clear Calc 111.9 Estimated GFR > 60 Random Glucose 110 Calcium 9.8 Magnesium 2.0 Total Bilirubin 0.9 Direct Bilirubin 0.3 AST 28 ALT 44 H Alkaline Phosphatase 60 C-Reactive Protein 0.03 Total Protein 7.7 Albumin 4.4 Lipase 33 Urine Color Urine Appearance Urine pH Ur Specific [place] Urine Protein Urine Glucose (UA) Urine Ketones Urine Blood Urine Nitrite Ur Leukocyte Esterase COVID-19 (LONG) Negative COVID-19 Clin Com See Note 04/16/22 04/16/22 09:13 12:58 MCV MCH MCHC RDW Plt Count MPV Immature Gran % (Auto) Neut % (Auto) Lymph % (Auto) [place] % (Auto) Eos % (Auto) Baso % (Auto) Lymph # (Auto) [place] # (Auto) Eos # (Auto) Baso # (Auto) Abs Immat Gran (auto) Absolute Neuts (auto) Absolute Nucleated RBC Nucleated RBC % (auto) ESR 7 Anion Gap Estim Creat Clear Calc Estimated GFR Random Glucose Calcium Magnesium Total Bilirubin Direct Bilirubin AST ALT Alkaline Phosphatase C-Reactive Protein Total Protein Albumin Lipase Urine Color Yellow Urine Appearance Clear Urine pH 7.5 Ur Specific [place] 1.020 Urine Protein Negative Urine Glucose (UA) Negative Urine Ketones Negative Urine Blood Negative Urine Nitrite Negative Ur Leukocyte Esterase Negative COVID-19 (LONG) COVID-19 Clin Com <KATIE Braden - Last Filed: 04/16/22 15:04> Imaging Radiologist's Impressions: Impressions Abdomen/Pelvis CT 04/16/22 12:13 IMPRESSION: No acute finding. <KATIE Braden - Last Filed: 04/16/22 15:04> Assessment and Plan (1) Abdominal pain: Status: Acute <KATIE Braden - Last Filed: 04/16/22 15:04> (2) Nausea and vomiting: Status: Acute <KATIE Braden - Last Filed: 04/16/22 15:04> (3) Diarrhea: Status: Acute <KATIE Braden - Last Filed: 04/16/22 15:04> 41 year old male with history of anxiety, Crohn's disease on humira and mesalamine, and migraines to be observed for acute n/v/d and po intolerance. 1- Right abdominal pain with acute N/V/D with PO intolerance -Etiology unclear at this time to exmplain severe abdominal pain. CT abd/pelvis negative for obvious IBD flare or SBO. No leukocytosis. Afebrile. Hemodynamically stable -CDiff and stool studies pending. Occult stool ordered -NPO diet. Advance as tolerated -IVF -GI consult ordered -Allergic to multiple antiemetics. Phenergan and dilaudid ordered -Pain management with dilaudid and oxycodone on pain scale and IV tylenol 2-Crohns disease- no evidence of acute flare at this time -Inflammatory markers normal. Abd/Ct normal. No leukocytosis -s/p colectomy and j-pound with colectomy reversal -Follows with Francisca. Consult placed -Received dose Humira this am. Continue mesalamine [id number] -Continue home meds 6-[id number] -Continue prophylactic home meds DVT prophylaxis- lovenox Full code <KATIE Braden - Last Filed: 04/16/22 15:04> 41 year old male with history of anxiety, Crohn's disease on humira and mesalamine, and migraines to be observed for acute n/v/d and po intolerance. 1- Right abdominal pain with acute N/V/D with PO intolerance -Etiology unclear at this time to exmplain severe abdominal pain. CT abd/pelvis negative for obvious IBD flare or SBO. No leukocytosis. Afebrile. Hemodynamically stable -CDiff and stool studies pending. Occult stool ordered -NPO diet. Advance as tolerated -IVF -GI consult ordered -Allergic to multiple antiemetics. Phenergan and dilaudid ordered -Pain management with dilaudid and oxycodone on pain scale and IV tylenol 2-Crohns disease- no evidence of acute flare at this time -Inflammatory markers normal. Abd/Ct normal. No leukocytosis -s/p colectomy and j-pound with colectomy reversal -Follows with Francisca. Consult placed -Received dose Humira this am. Continue mesalamine 4-[id number] -Continue home meds 9-[id number] -Continue prophylactic home meds DVT prophylaxis- lovenox Full code patient seen examined in the emergency room complaining of abdominal pain on examination patient nontoxic appearing,abdomen mildly distended, bowel sounds audible no rebound, no guarding no rigidity assessment and plan abdominal pain question etiology, does not seem like Crohn's disease flare ,no leukocytosis afebrile follow clinical course and discuss further treatment plan with GI agree with above treatment plan as per APC. <Emilee Agrawal MD - Last Filed: 04/17/22 10:51> Quality Stroke Does the patient have a stroke diagnosis?: No <KATIE Braden - Last Filed: 04/16/22 15:04> VTE Prior VTE?: No <KATIE Braden - Last Filed: 04/16/22 15:04> VTE Risk Level:: Medical - low <KATIE Braden - Last Filed: 04/16/22 15:04> VTE Device Contraindication: N/A - Device Ordered <KATIE Braden - Last Filed: 04/16/22 15:04> VTE Drug Contraindication: Treatment Not Indicated <KATIE Braden - Last Filed: 04/16/22 15:04>
--- NOTE | 2022-04-16 14:49 | PHA.MEDREC ---
Pharmacy Consult ? Medication Reconciliation Pharmacy has completed the medication reconciliation. Pt stated he isn't taking a lot of the vitamins he was prescribed due to stomach upset they cause him
--- OUTSIDE RECORDS SUMMARY | 2022-04-16 14:49 | XMS_ITS | Encounter Summary ---
:1980 Author Care Team Providers Name Role Phone [facility] Referring Provider [phone] [facility] Primary Care Referring Provider [phone] Reason for Visit Chest Pain, Cough, Fever/Chills [...] reasonable candidate for paxlovid rx sent to [facility] return to primary team notify service if [...] Encounters 02/27/2022 Covid-19 Matilde Fairbanks MD: [address] [facility] [address], [place] [address], Ph. History of Present Illness Note: <p><strong>HPI: [...]
--- OUTSIDE RECORDS SUMMARY | 2022-04-16 14:49 | XMS_ITS ---
:1980 Author Care Team Providers Name Role Phone [facility] Referring Provider [phone] [facility] Referring Provider [phone] Allergies None recorded. Medications Name Status Start Date Stop Date ? ? Paxlovid 300 mg (150 mg x 2)-100 mg tablets in a dose pack (EUA) Active ? Not available Take 3 tablets twice a day by oral route for 5 days. Problems None recorded. Procedures None recorded. Results Lab Results None recorded. Past Encounters 02/27/2022 Covid-19 Matilde Fairbanks MD: [address] [place] [phone], Ph. Social History None recorded. Vaccine List [...]
--- NOTE | 2022-04-16 15:31 | P.CNGI_ITS ---
History of Present Illness Data of Consult Service Date: 04/16/22 Requesting physician: Jes Breen Primary Care Provider: Manuel Harris MD HPI Reason for consult: abdo pain, nausea 41 year old male with history of anxiety, Crohn's disease s/p total colectomy and J-pouch on humira who I am seeing for assessment He has had 3 d of non bloody emesis, wt right sided 10/10 twisting or burning abdominal pain into the back and flank. He also has poor appetite and malaise . Denies fevers, chills, suspicious food intake, or recent travel. Moving might make the pain worse as does food. He has seen blood in stools on few occasions. He feels this pain is not similar to his prior pouchitis flares. Tried tramadol and oxycodone at home without improvement. denies back trauma or heavy lifting Currently he is disappointed in his pain management by primary team and is requesting more pain medication otherwise he may sign himself out. LABS: nml CBC, neg CRP Adalimumab ab neg in recent past, good trough at 29. IMAGING: CT:No acute finding s (8 CT scans so far this year) MRI L- spine, --mild degen, no spinal compression Pouchoscopy 09/19/21- Dr Figueroa- moderate internal hemorrhoids, nml appearing mucosa. ? path- chronic enteritis , minimal activity, focal mild active ileitis Review of Systems Review of Systems: Constitutional : No Weight loss, No Fever, No Chills ENT/Mouth : No sore throat, No Rhinorrhea Eyes: No Swelling, No Redness Cardiovascular : No Chest Pain, No SOB, No Edema Respiratory : No Cough, No Sputum, No Wheezing Gastrointestinal : see HPI Genitourinary : NO Dysuria, No Urinary Frequency, No Hematuria, No Urgency Musculoskeletal : No joint pain, No Myalgias, No Joint Swelling Skin : No Skin Lesions, No rash Neuro : No Weakness, No Numbness, No Dizziness, No Headache Psych : No Anxiety/Panic, No Depression Heme/Lymph: No Bruising, No Lymphadenopathy Endocrine : No Polyuria, No Polydipsia All other systems reviewed and are negative. [facility] Past Medical History Medical History (Updated 04/16/22 @ 14:57 by KATIE Braden) Anxiety Crohn's disease IBD (inflammatory bowel disease) Migraine Partial small bowel obstruction Family History Family History Mother HTN (hypertension) Surgical History Surgical History (Updated 04/16/22 @ 14:53 by KATIE Braden) History of colostomy reversal History of esophagogastroduodenoscopy (EGD) History of surgery on arm Hx of colonoscopy S/P colostomy Social History Social History Household Members: Spouse and Children Housing: House Do you presently have visiting nurse or other home services: No Alcohol intake: never Patient Tobacco Use Status: Never used Tobacco Advance Directives: No Advance Directives Information Provided: No service: No Current occupational status: disabled Meds Allergies Allergy/AdvReac Type Severity Reaction Status Date / Time ondansetron [Ondansetron] Allergy Mild HIVES Verified 02/25/22 20:17 Sulfa (Sulfonamide Allergy Mild UNKNOWN Verified 02/25/22 20:17 Antibiotics) ketorolac Allergy Unknown Unknown Verified 02/25/22 20:17 meperidine [Demerol] Allergy Unknown Unknown Verified 02/25/22 20:17 metoclopramide [Reglan] Allergy Unknown Unknown Verified 02/25/22 20:17 morphine [Morphine] Allergy Unknown RASH Verified 02/25/22 20:17 haloperidol [From Haldol] Allergy Anaphylaxis Verified 02/25/22 20:17 ketamine Allergy Unknown Verified 02/25/22 20:17 From REGLAN Allergy Mild PT UNSURE Uncoded 02/23/22 08:44 BUT STATES HE IS ALLERGIC Compro Allergy Unknown Unknown Uncoded 02/23/22 08:44 From COMPAZINE Allergy Unknown ITCHING Uncoded 02/23/22 08:44 From Demerol Allergy Unknown ITCHY HIVES Uncoded 02/23/22 08:44 From Toradol Allergy Unknown UNK Uncoded 02/23/22 08:44 Active Medications: Current Medications Hydromorphone HCl (Hydromorphone Hcl 0.5 Mg/0.5 Ml Syringe) 0.5 mg IVPUSH Q3H PRN; Protocol PRN Reason: Pain, Severe (Pain Scale 7-10) Acetaminophen (Ofirmev) 1,000 mg in 100 mls @ 400 mls/hr IV Q6H PRN PRN Reason: Pain, Severe (Pain Scale 7-10) Lactated Ringer's (Lr) 1,000 mls @ 100 mls/hr IVCONT .Q10H [facility] Oxycodone HCl (Oxycodone Hcl Immed Release 5 Mg Tablet) 5 mg PO Q6H PRN PRN Reason: Pain, Moderate (Pain Scale 4-6 Pharmacy Consult (Consult Rx Perform Med Rec) 1 each MISCELLANE ONCE PRN PRN Reason: Consult order Sodium Chloride (0.9 % Sodium Chloride Flush 3 Ml Syringe) 3 ml IVFLUSH QSHIFT [facility] Home Medications Medication Instructions Recorded Confirmed Last Taken Type adalimumab 40 mg/0.4 mL 40 mg subcut TH@0900 08/19/21 04/16/22 04/16/22 History subcutaneous pen kit (Humira(CF) Pen) clonazepam 1 mg tablet 1 tab PO BID 08/19/21 04/16/22 04/15/22 History loratadine 10 mg tablet 1 tab PO DAILY PRN Allergy Symptoms 08/19/21 04/16/22 Unknown History omeprazole 20 mg capsule,delayed 2 cap PO DAILY@0630 08/19/21 04/16/22 Unknown History release zolpidem 10 mg tablet 1 tab PO BEDTIME 08/19/21 04/16/22 09/17/21 History hydrocortisone 1 % topical cream 1 appl topical BID PRN Itching 09/18/21 04/16/22 09/18/21 History tramadol 50 mg tablet 50 mg PO Q12H PRN Pain (Scale 09/18/21 04/16/22 Unknown History Score 4-6) Physical Exam Vital Signs: Vital Signs: Last Vital Signs Temp 97.6 F 04/16/22 09:06 Pulse 88 04/16/22 09:06 Resp 20 04/16/22 09:06 BP 116/72 04/16/22 09:06 Pulse Ox 97 04/16/22 09:06 O2 Del Method 04/16/22 09:06 BMI result Body Mass Index 26.6 EXAM: GENERAL: The patient is irritable, uncomfortable VITAL SIGNS:see workflow HEENT: Nonicteric sclerae, PERRLA, EOMI. Oropharynx clear. Moist mucous membranes. Conjunctivae appear well perfused. No thyroid mass. CHEST: Chest wall is nontender. HEART: Regular rate and rhythm without murmurs. LUNGS: Clear to auscultation bilaterally. ABDOMEN: Soft, positive bowel sounds, tender right flank, RLQ,, no organomegaly.no flank tenderness SKIN: No rash, no excessive bruising, petechiae, or purpura. NEUROLOGIC: Cranial nerves II-XII intact without motor/sensory deficit. MS: edmond worse with twisitng and bending, tender L- spine, lower veetebrae, and paraspinal muscles on right Results Labs CBC & Chem 7: 04/16/22 09:13 04/16/22 09:13 Labs: Short CBC 04/16/22 Range/Units 09:13 WBC 5.6 (4.8-10.8) X10*3/uL Hgb 14.5 (14.0-18.0) g/dl Hct 41.9 L (42.0-52.0) % Plt Count 173 (160-400) X10*3/uL BMP 04/16/22 09:13 Sodium 139 Potassium 4.0 Chloride 102 Carbon Dioxide 28 BUN 11 Creatinine 0.74 Calcium 9.8 Liver Function 04/16/22 Range/Units 09:13 Total Bilirubin 0.9 (0.0-1.0) mg/dL Direct Bilirubin 0.3 (0.0-0.5) mg/dL AST 28 (5-37) U/L ALT 44 H (0-40) U/L Alkaline Phosphatase 60 (39-117) U/L Albumin 4.4 (3.5-5.0) g/dL Urine 04/16/22 Range/Units 12:58 Urine Color Yellow Urine Appearance Clear Urine pH 7.5 (5.0-9.0) Ur Specific [place] 1.020 (1.005-1.025) Urine Protein Negative (Neg-Trace) mg/dL Urine Glucose (UA) Negative (Negative) mg/dL Assessment and Plan (1) Nausea and vomiting: Status: Acute (2) Crohn's disease: Status: Acute (3) Diarrhea: Status: Acute Plan 1/ Right flank and paraspinal pain with tenderness and pain, uncertain etiology not really consistent with pouchitis, no urine sx. Imaging with no stones or acute diseases. UA is negative. concerned about inadequate pain control. Pouchoscopy earlier this year with minimal inflammation PLAN: 1/ may have poucitis although not seen on CT, also infectious enteritis possible 2/ commence cipro and flagy 3/ GI stool pcr and c diff 4/ if ongoing sx tomorrow then pouchoscopy 5/ check u tox Procedures Date of Service Date of Service: 04/16/22
[2022-04-16] MEDS: Lactated Ringers 1,000 ML 999 ML IV (15:36)
[2022-04-16 15:56] VITALS: BP 113/76; PULSE 69; RESP 20; TEMP 36; O2SAT 96
[2022-04-16] MEDS: HYDROmorphone HCl 0.5 MG/0.5 ML SYRINGE 1 MG IVPUSH ×2 (18:05→22:38)
[2022-04-16] MEDS: 0.9 % Sodium Chloride Flush 3 ML SYRINGE IVFLUSH (18:06)
[2022-04-16] MEDS: clonazePAM 1 MG TABLET PO (18:15)
[2022-04-16 20:00] VITALS: BP 117/67; PULSE 106; RESP 17; TEMP 36.7; O2SAT 96
[2022-04-16] MEDS: oxyCODONE HCl Immed Release 5 MG TABLET PO (20:31)
[2022-04-16] MEDS: Zolpidem Tartrate 5 MG TABLET PO (20:31)
[2022-04-16] MEDS: Propranolol HCL 10 MG TABLET PO (20:31)
[2022-04-16 21:36] VITALS: RESP 17
--- NOTE | 2022-04-16 22:01 | PC.NURSE ---
Report given to overflow JULIANN Johnson
--- NOTE | 2022-04-16 22:47 | PC.NURSE ---
patient brought to ED overflow. awake and alert. skin pwd. resp even and non labored. speaking in full, clear sentences. c/o 9/10 lower abdominal pain. abdomen is firm and distended w/ active bowel sounds x 4. patient reports having multiple episodes of diarrhea. nausea w/o vomiting. medicated per orders. patient aware of plan of care
[2022-04-16 23:37] VITALS: BP 105/70; PULSE 61; RESP 14; TEMP 36.6; O2SAT 95
[2022-04-17] MEDS: 0.9 % Sodium Chloride Flush 3 ML SYRINGE IVFLUSH ×2 (00:04→08:03)
[2022-04-17 01:53] VITALS: RESP 16
[2022-04-17] MEDS: HYDROmorphone HCl 0.5 MG/0.5 ML SYRINGE IVPUSH (01:53)
--- NOTE | 2022-04-17 02:31 | PC.NURSE ---
Patient complained of 9/10 abd pain to right side, twisting and sharp, face grimacing noted, moaning. Pain meds not due. Dr. Rocha notified, one time dose of dialudid 0.5 mg ordered, given at 0153. on reassessment, no relief, still cluching side. Next prn dose of 1 mg due at 02:38, will reassess then.
[2022-04-17] MEDS: HYDROmorphone HCl 0.5 MG/0.5 ML SYRINGE 1 MG IVPUSH ×2 (02:39→07:57)
[2022-04-17] MEDS: metroNIDAZOLE/NS 500 MG/100 ML PIGGYBACK 100 MG IV (02:39)
[2022-04-17 03:04] LABS: CDiff Gene PCR NEGATIVE (Negative)
[2022-04-17] MEDS: oxyCODONE HCl Immed Release 5 MG TABLET PO (03:37)
[2022-04-17] MEDS: Omeprazole 40 MG CAPSULE.DR PO (03:40)
[2022-04-17] MEDS: clonazePAM 1 MG TABLET PO (07:56)
[2022-04-17 07:58] LABS: MANUAL DIFF FLAG NO
[2022-04-17 07:59] LABS: Basophils Percent Auto 0.6 % (0-2); Eosinophils Absolute Auto 0.1 X10*3/uL (0.0-0.4); Eosinophils Percent Auto 1.6 % (0-4); Hemoglobin 13.6 g/dl (14.0-18.0); Imm Gran Abs Auto 0.01 X10*3/uL (0.00-0.03); Imm Gran Pct Auto 0.2 % (0.0-0.4); Lymphocytes Absolute Auto 1.7 X10*3/uL (1.2-4.9); Lymphocytes Percent Auto 33.3 % (20-40); Mean Corpuscular Hemoglobin 31.6 pg (27.0-33.0); Mean Platelet Volume 10.6 fL (9.4-12.4); Monocytes Absolute Auto 0.4 X10*3/uL (0.1-1.2); Monocytes Percent Auto 7.8 % (2-11); Neutrophils Absolute Auto 2.8 x10*3/uL (2.0-8.3); Neutrophils Percent Auto 56.5 % (45-73); Platelet Count 164 X10*3/uL (160-400); Red Cell Distribution Width 12.7 % (11.0-16.0)
[2022-04-17 08:30] VITALS: BP 120/80; PULSE 65; RESP 16; TEMP 36.8; O2SAT 95
--- NOTE | 2022-04-17 08:51 | PM.GIPN ---
Subjective Subjective Date of Service: 04/17/22 Interval History: doing better today hungry and wants to eat diarrhea at his baseline, stool studies pending nausea is gone c diff is neg Critical Care Time (minutes): 0 Physical Exam Vital Signs: Vital Signs: Last Vital Signs Temp 98.2 F 04/17/22 08:30 Pulse 65 04/17/22 08:30 Resp 16 04/17/22 08:30 BP 120/80 04/17/22 08:30 Pulse Ox 95 04/17/22 08:30 O2 Del Method 04/17/22 08:30 BMI result Body Mass Index 26.6 EXAM: GENERAL: The patient is well developed and nontoxic. VITAL SIGNS:see workflow HEENT: Nonicteric sclerae, PERRLA, EOMI. Oropharynx clear. Moist mucous membranes. Conjunctivae appear well perfused. No thyroid mass. CHEST: Chest wall is nontender. HEART: Regular rate and rhythm without murmurs. LUNGS: Clear to auscultation bilaterally. ABDOMEN: Soft, positive bowel sounds, nontender, no organomegaly.no flank tenderness SKIN: No rash, no excessive bruising, petechiae, or purpura. NEUROLOGIC: Cranial nerves II-XII intact without motor/sensory deficit. Objective Data Labs CBC & Chem 7: 04/17/22 07:18 04/16/22 09:13 Labs: Laboratory Results - last 24 hr 04/16/22 04/16/22 04/16/22 09:13 09:13 09:13 WBC 5.6 RBC 4.63 Hgb 14.5 Hct 41.9 L MCV 90.5 MCH 31.3 MCHC 34.6 RDW 12.7 Plt Count 173 MPV 10.4 Immature Gran % (Auto) 0.2 Neut % (Auto) 55.7 Lymph % (Auto) 35.7 [place] % (Auto) 6.7 Eos % (Auto) 1.2 Baso % (Auto) 0.5 Lymph # (Auto) 2.0 [place] # (Auto) 0.4 Eos # (Auto) 0.1 Baso # (Auto) 0.0 Abs Immat Gran (auto) 0.01 Absolute Neuts (auto) 3.1 Absolute Nucleated RBC 0.000 Nucleated RBC % (auto) 0.0 ESR Sodium 139 Potassium 4.0 Chloride 102 Carbon Dioxide 28 Anion Gap 13 BUN 11 Creatinine 0.74 Estim Creat Clear Calc 111.9 Estimated GFR > 60 Random Glucose 110 Calcium 9.8 Magnesium 2.0 Total Bilirubin 0.9 Direct Bilirubin 0.3 AST 28 ALT 44 H Alkaline Phosphatase 60 C-Reactive Protein 0.03 Total Protein 7.7 Albumin 4.4 Lipase 33 Urine Color Urine Appearance Urine pH Ur Specific [place] Urine Protein Urine Glucose (UA) Urine Ketones Urine Blood Urine Nitrite Ur Leukocyte Esterase C. difficile Tox B Gene COVID-19 (LONG) Negative COVID-19 Clin Com See Note 04/16/22 04/16/22 04/17/22 09:13 12:58 01:19 WBC RBC Hgb Hct MCV MCH MCHC RDW Plt Count MPV Immature Gran % (Auto) Neut % (Auto) Lymph % (Auto) [place] % (Auto) Eos % (Auto) Baso % (Auto) Lymph # (Auto) [place] # (Auto) Eos # (Auto) Baso # (Auto) Abs Immat Gran (auto) Absolute Neuts (auto) Absolute Nucleated RBC Nucleated RBC % (auto) ESR 7 Sodium Potassium Chloride Carbon Dioxide Anion Gap BUN Creatinine Estim Creat Clear Calc Estimated GFR Random Glucose Calcium Magnesium Total Bilirubin Direct Bilirubin AST ALT Alkaline Phosphatase C-Reactive Protein Total Protein Albumin Lipase Urine Color Yellow Urine Appearance Clear Urine pH 7.5 Ur Specific [place] 1.020 Urine Protein Negative Urine Glucose (UA) Negative Urine Ketones Negative Urine Blood Negative Urine Nitrite Negative Ur Leukocyte Esterase Negative C. difficile Tox B Gene NEGATIVE COVID-19 (LONG) COVID-19 Clin Com 04/17/22 07:18 WBC 5.0 RBC 4.30 L Hgb 13.6 L Hct 40.0 L MCV 93.0 MCH 31.6 MCHC 34.0 RDW 12.7 Plt Count 164 MPV 10.6 Immature Gran % (Auto) 0.2 Neut % (Auto) 56.5 Lymph % (Auto) 33.3 [place] % (Auto) 7.8 Eos % (Auto) 1.6 Baso % (Auto) 0.6 Lymph # (Auto) 1.7 [place] # (Auto) 0.4 Eos # (Auto) 0.1 Baso # (Auto) 0.0 Abs Immat Gran (auto) 0.01 Absolute Neuts (auto) 2.8 Absolute Nucleated RBC 0.000 Nucleated RBC % (auto) 0.0 ESR Sodium Potassium Chloride Carbon Dioxide Anion Gap BUN Creatinine Estim Creat Clear Calc Estimated GFR Random Glucose Calcium Magnesium Total Bilirubin Direct Bilirubin AST ALT Alkaline Phosphatase C-Reactive Protein Total Protein Albumin Lipase Urine Color Urine Appearance Urine pH Ur Specific [place] Urine Protein Urine Glucose (UA) Urine Ketones Urine Blood Urine Nitrite Ur Leukocyte Esterase C. difficile Tox B Gene COVID-19 (LONG) COVID-19 Clin Com Procedures Date of Service Date of Service: 04/17/22 Progress Note: A&P Assessment and plan (1) Diarrhea: Status: Acute (2) Migraine: Status: Acute (3) Crohn's disease: Status: Acute Plan 1/ Abdominal pain, possibly acute on chronic visceral pain related to prior surgeries, low suspicion for pouchitis based opn labs and imaging, benign exam, neg MRI spine PLAN: 1/ Recommend 10 mg nortriptiline and assess response 2/ try to limit opiate use 3/ ultimately may require pain management assessement 4/ advance diet and o/p pouchoscopy Time Spent With Patient Time: Total time spent is greater than 50% in coordination of care (as documented) at patient's floor/unit and/or counseling patient: Quality Stroke Does the patient have a stroke diagnosis?: No VTE Prior VTE?: No VTE Risk Level:: Medical - low VTE Device Contraindication: N/A - Device Ordered VTE Drug Contraindication: Treatment Not Indicated
[2022-04-17 09:01] LABS: Adenovirus F 40/41 Not Detected (Not Detect.); Astrovirus Not Detected (Not Detect.); Campylobacter Not Detected (Not Detect.); Cryptosporidium Not Detected (Not Detect.); Cyclospora cayetanensis Not Detected (Not Detect.); E. coli EAEC Not Detected (Not Detect.); E. coli EPEC Not Detected (Not Detect.); E. coli ETEC Not Detected (Not Detect.); E. coli STEC Not Detected (Not Detect.); Entamoeba histolytica Not Detected (Not Detect.); Giardia lamblia Not Detected (Not Detect.); Norovirus GI/GII Not Detected (Not Detect.); Plesiomonas shigelloides Not Detected (Not Detect.); Salmonella Not Detected (Not Detect.); Shigella sp./EIEC Not Detected (Not Detect.); Vibrio Not Detected (Not Detect.); Vibrio Cholerae Not Detected (Not Detect.); Yersinia enterocolitica Not Detected (Not Detect.)
[2022-04-17 09:02] LABS: Rotavirus A Not Detected (Not Detect.); Sapovirus Not Detected (Not Detect.)
[2022-04-17] MEDS: Propranolol HCL 10 MG TABLET PO (09:20)
[2022-04-17] MEDS: SUMAtriptan succinate 100 MG TABLET PO (09:33)
--- NOTE | 2022-04-17 10:51 | PM.DS ---
DS: Providers Provider Date of Service: 04/17/22 Date of admission: 04/16/22 14:36 Primary care physician: Manuel Harris MD Consults: 04/16/22 14:41 Consult to Gastroenterology Routine Consulting Provider: Kyle Espinosa Reason for consultation: n/v/d, po intolerance, hx crohns DS: Diagnosis Discharge Diagnosis (1) Abdominal pain: Status: Acute (2) Nausea and vomiting: Status: Acute (3) Diarrhea: Status: Acute DS: Summary Hospital Course Hospital Course: 41 year old male with history of anxiety, Crohn's disease on humira and mesalamine, and migraines presented to the ED this morning for evaluation of severe right-sided abdominal pain. 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 Espinosa. He states he has diarrhea at baseline following colostomy/reversal but noted some BRBPR yesterday. There has also been nonblood emesis x3 days and severe 10/10 right-sided abdominal pain radiating to the right back as well. Not tolerating oral fluids or food. He is on tramadol and oxycodone at home without improvement. Feels abdomen is distended. Denies fevers, chills, suspicious food intake, or recent travel. Lives at home with . IN the ED, CT abd/pelvis without abnormality. No leukocytosis. Renal function and liver function normal. H/H stable. Case discussed with Dr. Espinosa who recommends observation. Hospital course 41 year old male with history of anxiety, Crohn's disease on humira and mesalamine, and migraines admitted under observation for acute nausea vomiting diarrhea and po intolerance, of unclear etiology CT abdomen and pelvis negative for acute pathology patient was afebrile with no leukocytosis patient was admitted for pain control, IV antibiotics and for IV fluids, this morning patient is feeling better, stool C diff is negative no further nausea vomiting therefore case discussed with parts counter representative Dr. Thompson he feels pain is likely visceral and less likely due to Crohn's flare or pouchicity, therefore he recommend patient to be discharged home on by mouth Cipro, Flagyl and nortriptyline 10 mg for pain management patient has been recommended to resume his usual diet and to have outpatient follow-up with Gastroenterology for recurrent symptoms, he is recommended to minimize use of non tramadol. In regard to history of Crohns disease- no evidence of acute flare at this time, he has recommended to continue mesalamine and Humira as before -Anxiety-stable -Continue home meds -Migraines-stable -Continue prophylactic home meds Time Spent with Patient Time attestation: Total time spent providing and/or coordinating discharge services: Discharge coordination time: Greater than 30 minutes Quality: Safe Use of Opioids Does Pt have an Active Cancer Diagnosis on the Problem List?: No Quality: Stroke Does the patient have a stroke diagnosis?: No Physical Exam Vital Signs: Vital Signs: Last Vital Signs Temp 98.2 F 04/17/22 08:30 Pulse 65 04/17/22 08:30 Resp 16 04/17/22 08:30 BP 120/80 04/17/22 08:30 Pulse Ox 95 04/17/22 08:30 O2 Del Method 04/17/22 08:30 BMI result Body Mass Index 26.6 Const: Other: GENERAL: awake alert x3, nontoxic. HEART: Regular rate and rhythm without murmurs. LUNGS: Clear to auscultation bilaterally. ABDOMEN: Soft, positive bowel sounds, nontender, no organomegaly SKIN: No rash, no excessive bruising, petechiae, or purpura. NEUROLOGIC: Cranial nerves II-XII intact without motor/sensory deficit. DS: Data Data Completed and Pending Completed studies during hospitalization [Text1]: Procedures Excision of Ileum, Via Natural or Artificial Opening Endoscopic, Diagnostic (09/18/21) Labs on day of discharge: Laboratory Results - last 24 hr 04/16/22 04/16/22 04/16/22 09:13 09:13 12:58 WBC RBC Hgb Hct MCV MCH MCHC RDW Plt Count MPV Immature Gran % (Auto) Neut % (Auto) Lymph % (Auto) [place] % (Auto) Eos % (Auto) Baso % (Auto) Lymph # (Auto) [place] # (Auto) Eos # (Auto) Baso # (Auto) Abs Immat Gran (auto) Absolute Neuts (auto) Absolute Nucleated RBC Nucleated RBC % (auto) ESR 7 Magnesium 2.0 C-Reactive Protein 0.03 Urine Color Yellow Urine Appearance Clear Urine pH 7.5 Ur Specific [place] 1.020 Urine Protein Negative Urine Glucose (UA) Negative Urine Ketones Negative Urine Blood Negative Urine Nitrite Negative Ur Leukocyte Esterase Negative Stl C. cayetanensis PCR Stool Rotavirus A PCR Stl Adenov F PCR Stool Astrovirus (PCR) Stool Campylobacter PCR Stool Cryptosporidium PCR Stl Sh Tox Pr E STEC PCR Stool E coli O157 PCR Stl Enterotoxigenic E PCR Stool EPEC (PCR) Stool EAEC (PCR) Stl E. histolytica PCR Stool Giardia Lamblia PCR Stl P. shigelloides PCR Stool Salmonella PCR Stool Sapovirus (PCR) Stl Shigella/EIEC PCR St Y.enterocolitica PCR Stool Vibrio (PCR) Stl Vibrio cholerae PCR Stl Norovirus GI/GII PCR C. difficile Tox B Gene 04/17/22 04/17/22 04/17/22 01:19 01:19 07:18 WBC 5.0 RBC 4.30 L Hgb 13.6 L Hct 40.0 L MCV 93.0 MCH 31.6 MCHC 34.0 RDW 12.7 Plt Count 164 MPV 10.6 Immature Gran % (Auto) 0.2 Neut % (Auto) 56.5 Lymph % (Auto) 33.3 [place] % (Auto) 7.8 Eos % (Auto) 1.6 Baso % (Auto) 0.6 Lymph # (Auto) 1.7 [place] # (Auto) 0.4 Eos # (Auto) 0.1 Baso # (Auto) 0.0 Abs Immat Gran (auto) 0.01 Absolute Neuts (auto) 2.8 Absolute Nucleated RBC 0.000 Nucleated RBC % (auto) 0.0 ESR Magnesium C-Reactive Protein Urine Color Urine Appearance Urine pH Ur Specific [place] Urine Protein Urine Glucose (UA) Urine Ketones Urine Blood Urine Nitrite Ur Leukocyte Esterase Stl C. cayetanensis PCR Not Detected Stool Rotavirus A PCR Not Detected Stl Adenov F PCR Not Detected Stool Astrovirus (PCR) Not Detected Stool Campylobacter PCR Not Detected Stool Cryptosporidium PCR Not Detected Stl Sh Tox Pr E STEC PCR Not Detected Stool E coli O157 PCR Not applicable Stl Enterotoxigenic E PCR Not Detected Stool EPEC (PCR) Not Detected Stool EAEC (PCR) Not Detected Stl E. histolytica PCR Not Detected Stool Giardia Lamblia PCR Not Detected Stl P. shigelloides PCR Not Detected Stool Salmonella PCR Not Detected Stool Sapovirus (PCR) Not Detected Stl Shigella/EIEC PCR Not Detected St Y.enterocolitica PCR Not Detected Stool Vibrio (PCR) Not Detected Stl Vibrio cholerae PCR Not Detected Stl Norovirus GI/GII PCR Not Detected C. difficile Tox B Gene NEGATIVE Discharge Plan Discharge Patient Disposition: Home, Self-Care Discharge Diagnosis: Abdominal pain Referrals: Manuel Harris MD [Primary Care Provider] - 1 Week Discharge Medications: New nortriptyline 10 mg capsule 10 mg PO BEDTIME Qty: 30 0RF metronidazole 500 mg tablet 500 mg PO Q8H Qty: 18 0RF ciprofloxacin HCl [Cipro] 500 mg tablet 500 mg PO BID Qty: 12 0RF tramadol 50 mg tablet 50 mg PO BID PRN (Reason: moderate pain (scale score 5-6)) Qty: 14 0RF Continued sumatriptan succinate 100 mg tablet 100 mg PO Q2H PRN (Reason: migraine headache) 30 Days Qty: 12 6RF Rx Instructions: at onset of migraine, november 2 tabs per day or 4 tabs per week tizanidine 4 mg tablet 6 mg PO BEDTIME PRN (Reason: Muscle Spasm) 30 Days Qty: 135 3RF propranolol 10 mg tablet 10 mg PO BID 90 Days Qty: 180 1RF hydrocortisone 1 % cream 1 appl topical BID PRN (Reason: Itching) tramadol 50 mg tablet 50 mg PO Q12H PRN (Reason: Pain (Scale Score 4-6)) clonazepam 1 mg tablet 1 tab PO BID omeprazole 20 mg capsule,delayed release(DR/EC) 2 cap PO DAILY@0630 zolpidem 10 mg tablet 1 tab PO BEDTIME loratadine 10 mg tablet 1 tab PO DAILY PRN (Reason: Allergy Symptoms) Humira(CF) Pen 40 mg/0.4 mL pen injector kit 40 mg subcut TH@0900 Discharge Orders: Discharge Order (Routine); Ordered 04/17/22 Ordered By: Emilee Agrawal Diet: Advance to usual diet Activity on Discharge: As tolerated Stand Alone Forms: Patient Portal Discharge page Care Plan Goals: abdominal pain improved, take Flagyl and Cipro for 6 more days as ordered use nortriptyline 10 mg for pain management and minimize use of tramadol Health Concerns: continue all home medications as before Plan of Treatment: outpatient follow-up with Dr. Castillo call to make an appointment in next 1-2 weeks Assessment: as above
--- NOTE | 2022-04-17 15:11 | MHC.CM.PN ---
CM ATTEMPTED TO MEET W/PT HOWEVER PT HAD ALREADY D/C'D HOME, CM UNABLE TO COMPLETE ASSESSMENT.
== END 2022-04-17 12:00 | disposition home or self-care (01) ==
LOC: HO.ED 14:46 → HO.EDOVER 14:47
PROVIDERS: Physician Assistant; Admitting Provider Physician Assistant; Emergency Provider Emergency Medicine Emergency Medical Services; PCP Internal Medicine; Visit Provider Hospitalist
DX: G89.29 Other chronic pain (principal); R10.9 Unspecified abdominal pain; R11.2 Nausea with vomiting, unspecified; R19.7 Diarrhea, unspecified; K50.90 Crohn's disease, unspecified, without complications; Z20.822 Contact with and (suspected) exposure to COVID-19; F41.9 Anxiety disorder, unspecified; G43.909 Migraine, unspecified, not intractable, without status migrainosus; Z79.891 Long term (current) use of opiate analgesic; Z79.899 Other long term (current) drug therapy
CPT/HCPCS: 36415; 72148; 74177; 80048; 80076; 81003; 83690; 83735; 85025; 85652; 86140; 87493; 87507; 87635; 96361; 96365; 96366; 96367; 96374; 96375; 96376; 99218; 99284; 99285; J1170; J1200; J2550; Q9967

== ENCOUNTER → 2022-06-03 13:01 | Outpatient (BNVA) | payer OTHER, SELFPAY | PROVIDERS: PCP Internal Medicine; Visit Provider Nurse Practitioner Family | DX: G43.909 Migraine, unspecified, not intractable, without status migrainosus (principal); G47.33 Obstructive sleep apnea (adult) (pediatric) | CPT/HCPCS: 99212 ==

== ENCOUNTER 2022-06-11 08:13 | Observation (INO) | payer OTHER, SELFPAY ==
[2022-06-11] VITALS (7 sets, daily range): BP systolic 113–131; BP diastolic 73–82; PULSE 57–82; RESP 16–18; TEMP 36.3–36.6; O2SAT 94–99; BMI 26.1; BMI 27.3
--- NOTE | ~2022-06-11 | CT_ITS ---
EXAMINATION: CT ABDOMEN AND PELVIS WITH CONTRAST CLINICAL INFORMATION: Abdominal pain with firm distended abdomen and vomiting COMPARISON: [address] scans of the abdomen and pelvis in 2021 the most recent on 04/16/2022 TECHNIQUE: Multidetector volumetric images were obtained from the superior aspect of the liver through the pubic symphysis following administration 85 mL of Omnipaque 350 intravenous contrast. Sagittal and coronal reformatted images were obtained on the technologist's workstation. Oral contrast: No This CT examination was performed using dose optimization techniques as appropriate, variously including the following: *Automated exposure control *Adjustment of mA and/or kV according to patient size (this includes techniques or standardized protocols for targeted exams where dose is matched to indication/reason for exam; i.e. extremities or head) *Use of iterative reconstruction technique DLP: 521 mGy-cm FINDINGS: LUNG BASES: The visualized lung bases are unremarkable. LIVER, GALLBLADDER, AND BILIARY TREE: The liver is normal in size, shape, and attenuation. No focal hepatic lesion or biliary ductal dilatation is present. Status post cholecystectomy PANCREAS: Unremarkable. SPLEEN: Mild splenomegaly with the spleen measuring 12.6 cm ADRENAL GLANDS: Unremarkable. KIDNEYS AND URETERS: The kidneys are normal in size, shape, and attenuation. No hydronephrosis, hydroureter, or calculi seen. No perinephric stranding. BLADDER: Unremarkable. GASTROINTESTINAL TRACT: Again seen are changes of subtotal colectomy. Anastomotic suture line noted at the rectoanal junction as well as more proximally. No bowel obstruction. The small bowel is unremarkable. ABDOMINAL WALL: A small fat-containing right inguinal hernia. LYMPH NODES: No retroperitoneal lymphadenopathy. VASCULAR: Unremarkable. PELVIC VISCERA: Prostate and seminal vesicles appear normal. OSSEOUS STRUCTURES: Unremarkable. CT/CT abdomen pelvis w IV con IMPRESSION: 1. A cause for the patient's abdominal distention and vomiting has not been found. 2. Incidental findings as described above. Fleischner guidelines were followed.
[2022-06-11 08:38] LABS: Hematocrit 44.6 % (42.0-52.0); Hemoglobin 15.2 g/dl (14.0-18.0); Mean Corpuscular HGB Conc 34.1 g/dl (31.0-36.0); Mean Platelet Volume 10.5 fL (9.4-12.4); Platelet Count 171 X10*3/uL (160-400); Red Cell Distribution Width 12.2 % (11.0-16.0); White Blood Count 4.8 X10*3/uL (4.8-10.8)
--- OUTSIDE RECORDS SUMMARY | 2022-06-11 08:45 | XMS_ITS ---
:1980 Author Care Team Providers Name Role Phone [facility] Referring Provider [phone] [facility] Referring Provider [phone] Allergies None recorded. Medications Name Status Start Date Stop Date ? ? Paxlovid 300 mg (150 mg x 2)-100 mg tablets in a dose pack (EUA) Active ? Not available Take 3 tablets twice a day by oral route for 5 days. Problems None recorded. Procedures None recorded. Results Lab Results None recorded. Past Encounters Encounter Date Diagnosis Provider 02/27/2022 Covid-19 Matilde Fairbanks MD: [address] [place] [id number], . Social History None recorded. Vaccine List None [...]
[2022-06-11 08:51] LABS: Alanine Aminotransferase 137 U/L (0-40); Albumin Level 4.5 g/dL (3.5-5.0); Alkaline Phosphatase 89 U/L (39-117); Anion Gap 11 (12-20); Aspartate Amino Transferase 91 U/L (5-37); Bilirubin Direct 0.4 mg/dL (0.0-0.5); Bilirubin Total 1.1 mg/dL (0.0-1.0); Blood Urea Nitrogen 9 mg/dL (9-16); Calcium 9.8 mg/dL (8.4-10.2); Carbon Dioxide 29 mmol/L (22-29); Chloride 102 mmol/L (96-108); Creatinine Clr Calc Pharmacy 98.6; Estimated Glomerular Filt Rate > 60; Glucose Random 96 mg/dL (60-115); Lipase 34 U/L (8-78); Potassium 4.5 mmol/L (3.3-5.1); Sodium 137 mmol/L (135-145); Total Protein 7.9 g/dL (6.5-8.0)
--- NOTE | 2022-06-11 09:06 | ED.ABDPAIN ---
HPI - Abdominal Pain General Chief Complaint: Abdominal Pain Stated Complaint: chrones pain Time Seen by Provider: 06/11/22 09:00 Source: patient and old records reviewed Mode of arrival: ambulatory Limitations: no limitations History of Present Illness HPI narrative: 41-year-old male with history of Crohn's disease presenting to the ER for evaluation of diarrhea and abdominal pain for the last 4 days. He has felt nauseous but not vomited. He complains of abdominal distension. He was last seen by GI Dr. Espinosa in April with plan of starting nortriptillin, limit opiate use and possible pain management evaluation due to his chronic pain. MD elicited complaint: abdominal pain Pertinent past history: other (IBD - Crohn's ) Onset (ago): day(s) (4) Related Data Home Medications Medication Instructions Recorded Confirmed adalimumab 40 mg/0.4 mL 40 mg subcut TH@0900 08/19/21 06/03/22 subcutaneous pen kit (Humira(CF) Pen) clonazepam 1 mg tablet 1 tab PO BID 08/19/21 06/03/22 loratadine 10 mg tablet 1 tab PO DAILY PRN Allergy Symptoms 08/19/21 06/03/22 omeprazole 20 mg capsule,delayed 2 cap PO DAILY@0630 08/19/21 06/03/22 release zolpidem 10 mg tablet 1 tab PO BEDTIME 08/19/21 06/03/22 hydrocortisone 1 % topical cream 1 appl topical BID PRN Itching 09/18/21 06/03/22 metronidazole 500 mg tablet 500 mg PO Q8H 06/03/22 06/03/22 naloxone 4 mg/actuation nasal spray 0 spray intranasal 06/03/22 06/03/22 Previous Rx's Medication Instructions Recorded tizanidine 4 mg tablet 6 mg PO BEDTIME PRN Muscle Spasm 03/25/22 30 days #135 tabs propranolol 10 mg tablet 10 mg PO BID 90 days #180 tabs 03/26/22 tramadol 50 mg tablet 50 mg PO BID PRN moderate pain 04/17/22 (scale score 5-6) #14 tabs sumatriptan succinate 100 mg tablet 100 mg PO Q2H PRN migraine 04/30/22 headache 30 days #12 tabs topiramate 25 mg tablet 25 - 50 mg PO DAILY 30 days #60 06/03/22 tabs Allergies Allergy/AdvReac Type Severity Reaction Status Date / Time ondansetron [Ondansetron] Allergy Mild HIVES Verified 06/03/22 13:18 Sulfa (Sulfonamide Allergy Mild UNKNOWN Verified 06/03/22 13:18 Antibiotics) ketorolac Allergy Unknown Unknown Verified 06/03/22 13:18 meperidine [Demerol] Allergy Unknown Unknown Verified 06/03/22 13:18 metoclopramide [Reglan] Allergy Unknown Unknown Verified 06/03/22 13:18 morphine [Morphine] Allergy Unknown RASH Verified 06/03/22 13:18 haloperidol [From Haldol] Allergy Anaphylaxis Verified 06/03/22 13:18 ketamine Allergy Unknown Verified 06/03/22 13:18 From REGLAN Allergy Mild PT UNSURE Uncoded 06/03/22 13:18 BUT STATES HE IS ALLERGIC Compro Allergy Unknown Unknown Uncoded 06/03/22 13:18 From COMPAZINE Allergy Unknown ITCHING Uncoded 06/03/22 13:18 From Demerol Allergy Unknown ITCHY HIVES Uncoded 06/03/22 13:18 From Toradol Allergy Unknown UNK Uncoded 06/03/22 13:18 [facility] Past Medical History Medical History (Updated 06/11/22 @ 13:57 by KATIE Lugo) Anxiety Cervicalgia Crohn's disease IBD (inflammatory bowel disease) Migraine Partial small bowel obstruction Surgical History History of colostomy reversal History of esophagogastroduodenoscopy (EGD) History of surgery on arm Hx of colonoscopy S/P colostomy Family History Family History Mother HTN (hypertension) Social History Social History Household Members: Spouse and Children Housing: House Do you presently have visiting nurse or other home services: No Alcohol intake: never Patient Tobacco Use Status: Never used Tobacco Smoked in Last 30 Days: No Use of substances other than those prescribed or required for medical reasons: No Advance Directives: No service: No Current occupational status: disabled Physical Exam ED Vital Signs: Vital Signs - 24 hr 06/11/22 08:15 06/11/22 09:47 06/11/22 11:55 Temperature 97.8 F 97.7 F 97.6 F Pulse Rate 69 77 75 Respiratory Rate 18 18 16 Blood Pressure 115/73 113/75 113/78 Pulse Oximetry 96 94 98 Oxygen Delivery Method Room Air Room Air Room Air BMI result Body Mass Index 26.1 Course Course Course Narrative: 41 yo male with history of Crohn's disease, chronic pain on chronic opiates who presents to the ER for evaluation of abdominal pain with nonbloody diarrhea and vomiting for the last 2 days. His abdomen feels distended and firm. He appears uncomfortable and is vomiting clear fluid. Will get labs and CT scan for further evaluation. History of obstruction in the past. IV dilaudid and phenergan ordered, patient reports these are the only medications that work for him when he has a flare. He now goes to [facility] for his GI care and is planning for a full colectomy per his report. Reevaluation(s) Reevaluation #1: Labs are unremarkable, mild elevation of transaminases with normal alk-phos. Normal sed rate. Normal CRP. Less likely acute Crohn's flare. Pt continues to complain of severe abdominal pain. Will repeat doses of IV dilaudid and IV phenergan. Reevaluation #2: Patient continues to vomit and have severe pain. Unable to tolerate p.o.. CT scan without acute finding. Third round of antiemetics and pain control have been ordered. Given his intractable vomiting and pain will plan for admission. Hospitalist has been isai kruse for admission COVID ordered and med rec ordered. Medications Administered Discontinued Medications Generic Name Dose Route Start Last Admin Trade Name Mehdiq PRN Reason Stop Dose Admin Hydromorphone HCl 1 mg 06/11/22 09:41 06/11/22 10:48 Hydromorphone Hcl 1 Mg/Ml Syringe IVPUSH 06/11/22 09:42 1 mg ONCE ONE Administration Protocol Hydromorphone HCl 1 mg 06/11/22 11:59 06/11/22 12:15 Hydromorphone Hcl 1 Mg/Ml Syringe IVPUSH 06/11/22 12:00 1 mg ONCE ONE Administration Protocol Promethazine HCl 12.5 mg/ 50.5 mls @ 202 mls/hr 06/11/22 09:41 06/11/22 11:05 Sodium Chloride IV 06/11/22 09:42 Infused ONCE ONE Infusion Sodium Chloride 1,000 mls @ 999 mls/hr 06/11/22 09:45 06/11/22 11:50 Ns IVCONT 06/11/22 10:45 Infused .Q1H1M DULCE MARIA Infusion Promethazine HCl 12.5 mg/ 50.5 mls @ 202 mls/hr 06/11/22 11:59 06/11/22 12:30 Sodium Chloride IV 06/11/22 12:00 Infused ONCE ONE Infusion Iohexol 100 ml 06/11/22 11:37 06/11/22 11:38 Iohexol 350 Mg/Ml 100 Ml Infus..Btl IV 06/11/22 11:38 85 ml ONCE ONE Administration MDM - Abdominal Pain Lab Data Result diagrams: 06/11/22 08:32 06/11/22 08:32 Labs: Lab Results 06/11/22 06/11/22 06/11/22 Range/Units 08:32 08:32 08:32 WBC 4.8 (4.8-10.8) X10*3/uL RBC 4.90 (4.60-5.80) X10*6/uL Hgb 15.2 (14.0-18.0) g/dl Hct 44.6 (42.0-52.0) % MCV 91.0 (80.0-98.0) fL MCH 31.0 (27.0-33.0) pg MCHC 34.1 (31.0-36.0) g/dl RDW 12.2 (11.0-16.0) % Plt Count 171 (160-400) X10*3/uL MPV 10.5 (9.4-12.4) fL Absolute Nucleated RBC 0.000 (0.0-0.012) X10*3/uL Nucleated RBC % (auto) 0.0 (0.0-0.2) /100WBC ESR 8 (0-15) MM/HR Sodium 137 (135-145) mmol/L Potassium 4.5 (3.3-5.1) mmol/L Chloride 102 (96-108) mmol/L Carbon Dioxide 29 (22-29) mmol/L Anion Gap 11 L (12-20) BUN 9 (9-16) mg/dL Creatinine 0.84 (0.5-1.4) mg/dL Estim Creat Clear Calc 98.6 Estimated GFR > 60 Random Glucose 96 (60-115) mg/dL Calcium 9.8 (8.4-10.2) mg/dL Total Bilirubin 1.1 H (0.0-1.0) mg/dL Direct Bilirubin 0.4 (0.0-0.5) mg/dL AST 91 H (5-37) U/L ALT 137 H (0-40) U/L Alkaline Phosphatase 89 (39-117) U/L C-Reactive Protein 0.06 (< or = 0.50) mg/dL Total Protein 7.9 (6.5-8.0) g/dL Albumin 4.5 (3.5-5.0) g/dL Lipase 34 (8-78) U/L Critical Care Time Critical Care Time Critical Care Time: Yes Total Critical Care Time: 35 Attestation: I have personally provided critical care time exclusive of time spent on separately billable procedures. Time includes review of lab data, radiology results, frequent bedside reassessment and multiple doses of IV narcotics for pain control, and monitoring for potential decompensation. Intervention performed as documented. Discharge Plan Discharge Clinical Impression: Abdominal pain, Intractable vomiting with nausea Patient Disposition: Admitted As Inpatient Prescriptions: No Action tizanidine 4 mg tablet 6 mg PO BEDTIME PRN (Reason: Muscle Spasm) 30 Days Qty: 135 3RF propranolol 10 mg tablet 10 mg PO BID 90 Days Qty: 180 1RF sumatriptan succinate 100 mg tablet 100 mg PO Q2H PRN (Reason: migraine headache) 30 Days Qty: 12 6RF Rx Instructions: at onset of migraine, november 2 tabs per day or 4 tabs per week hydrocortisone 1 % cream 1 appl topical BID PRN (Reason: Itching) tramadol 50 mg tablet 50 mg PO BID PRN (Reason: moderate pain (scale score 5-6)) Qty: 14 0RF clonazepam 1 mg tablet 1 tab PO BID omeprazole 20 mg capsule,delayed release(DR/EC) 2 cap PO DAILY@0630 zolpidem 10 mg tablet 1 tab PO BEDTIME loratadine 10 mg tablet 1 tab PO DAILY PRN (Reason: Allergy Symptoms) Humira(CF) Pen 40 mg/0.4 mL pen injector kit 40 mg subcut TH@0900 metronidazole 500 mg tablet 500 mg PO Q8H naloxone 4 mg/actuation spray,non-aerosol 0 spray intranasal topiramate 25 mg tablet 25 - 50 mg PO DAILY 30 Days Qty: 60 3RF
[2022-06-11 09:32] LABS: C Reactive Protein 0.06 mg/dL (< or = 0.50)
[2022-06-11 09:54] LABS: Erythrocyte Sedimentation Rate 8 MM/HR (0-15)
--- NOTE | 2022-06-11 10:32 | PC.NURSE ---
pt is a/o x 4 no sob/kathrine noted lungs - cta. speaks in full sentences. heart sounds - irregular. abd soft and tender. bs + x 4 quads. no edema noted. pt states n/v x 4 today (twice in the er). pt aware of plan of care.
[2022-06-11] MEDS: 0.9 % Sodium Chloride 1,000 ML 999 ML IVCONT (10:47)
[2022-06-11] MEDS: HYDROmorphone HCl 1 MG/ML SYRINGE IVPUSH ×4 (10:48→21:13)
[2022-06-11] MEDS: iohexoL 350 MG/ML 100 ML INFUS..BTL IV (11:38)
--- NOTE | 2022-06-11 14:10 | PC.NURSE ---
pt n/v 100ml of fluid. mlp (anmol) aware.
--- NOTE | 2022-06-11 14:20 | PHA.MEDREC ---
Pharmacy Consult ? Medication Reconciliation Pharmacy has completed the medication reconciliation. Pt taking topamax and not taking imitrex anymore David
[2022-06-11 14:41] LABS: COVID-19 Test Negative (Negative); IDNOW Serial# 16C4AD1C
[2022-06-11] MEDS: diphenhydrAMINE HCL 50 MG/ML VIAL 25 MG IVPUSH (14:43)
[2022-06-11] MEDS: Prochlorperazine Edisylate 10 MG/2 ML VIAL IVPUSH (14:44)
--- NOTE | 2022-06-11 14:53 | PC.NURSE ---
[facility] at bedside, pt aware of plan of care for admission.
--- NOTE | 2022-06-11 16:23 | P.HPHOSP_ITS ---
History of Present Illness Date of Service: 06/11/22 Attending physician on admission: [facility] Chief Complaint: Abdominal Pain Pt is a 41-year-old male with a PMH significant for Crohn's disease, anxiety, and migraines who presents to the ED with a 4-day history of severe right-sided abdominal pain, diarrhea, and vomiting. Pt has a history of a total colostomy and J-pouch with colostomy reversal. A former pt of Dr. Espinosa, is now followed by GI at [facility]. States he has chronic diarrhea since his abdominal surgeries, but has been much worse lately. Reports noticing some occasional bright red blood in stool. Denies hematemesis. Abdominal pain is located in the right lower quadrant and radiates to the back, rates 10/10. Feels abdomen is distended, though denies F/C, recent travel, or eating suspicious food. Believes it to be a flareup of his Crohn's. Currently unable to tolerate oral food or liquids. Denies chest pain but claims a history of palpitations, which he attributes to his anxiety. In the ED workup was unremarkable. CT showed no acute findings that would accou nt for the pt's abdominal distention and vomiting. Labs revealed mild transaminitis with normal alk-phos. Normal CRP and sed rate. Tox screen pending. Pt has significant medical allergies/intolerances and states that dilaudid and phenergan are the only meds he can tolerate for these types of symptoms. He was given three rounds of dilaudid and phenergan with no resolution of symptoms. The pt will be admitted for observation to treat intractable abdominal pain and nausea. Review of Systems Review of Systems: Right lower quadrant abdominal pain radiating to the back Abdominal distention Diarrhea Nausea Denies F/C Yes all other systems are reviewed and are negative [facility] Medical History Anxiety Cervicalgia Crohn's disease IBD (inflammatory bowel disease) Migraine Partial small bowel obstruction Family History Mother HTN (hypertension) Surgical History History of colostomy reversal History of esophagogastroduodenoscopy (EGD) History of surgery on arm Hx of colonoscopy S/P colostomy Social History Household Members: Spouse and Children Housing: House Do you presently have visiting nurse or other home services: No Alcohol intake: never Patient Tobacco Use Status: Never used Tobacco Smoked in Last 30 Days: No Use of substances other than those prescribed or required for medical reasons: No Advance Directives: No service: No Current occupational status: disabled Meds Allergies Allergy/AdvReac Type Severity Reaction Status Date / Time ondansetron [Ondansetron] Allergy Mild HIVES Verified 06/03/22 13:18 Sulfa (Sulfonamide Allergy Mild UNKNOWN Verified 06/03/22 13:18 Antibiotics) ketorolac Allergy Unknown Unknown Verified 06/03/22 13:18 meperidine [Demerol] Allergy Unknown Unknown Verified 06/03/22 13:18 metoclopramide [Reglan] Allergy Unknown Unknown Verified 06/03/22 13:18 morphine [Morphine] Allergy Unknown RASH Verified 06/03/22 13:18 haloperidol [From Haldol] Allergy Anaphylaxis Verified 06/03/22 13:18 ketamine Allergy Unknown Verified 06/03/22 13:18 From REGLAN Allergy Mild PT UNSURE Uncoded 06/03/22 13:18 BUT STATES HE IS ALLERGIC Compro Allergy Unknown Unknown Uncoded 06/03/22 13:18 From COMPAZINE Allergy Unknown ITCHING Uncoded 06/03/22 13:18 From Demerol Allergy Unknown ITCHY HIVES Uncoded 06/03/22 13:18 From Toradol Allergy Unknown UNK Uncoded 06/03/22 13:18 Active Medications: Current Medications Acetaminophen (Acetaminophen 325 Mg Tablet) 650 mg PO Q4H PRN PRN Reason: Pain, Mild (Pain Scale 1-3) Clonazepam (Clonazepam 1 Mg Tablet) 1 mg PO BID PRN PRN Reason: Anxiety Enoxaparin Sodium (Enoxaparin Sodium 40 Mg/0.4 Ml Syringe) 40 mg SUBCUT Q24H [facility] Hydromorphone HCl (Hydromorphone Hcl 1 Mg/Ml Syringe) 1 mg IVPUSH Q4H PRN; Protocol PRN Reason: Pain, Severe (Pain Scale 7-10) Lactated Ringer's (Lr) 1,000 mls @ 100 mls/hr IVCONT .Q10H [facility] Promethazine HCl 12.5 mg/ (Sodium Chloride) 50.5 mls @ 202 mls/hr IV Q6H PRN PRN Reason: Nausea Loratadine (Loratadine 10 Mg Tablet) 10 mg PO DAILY PRN PRN Reason: Allergy Symptoms Multivitamins/Vitamin C (Multivitamin Tablet) 1 tab PO DAILY [facility] Omeprazole (Omeprazole 40 Mg Capsule.Dr) 40 mg PO DAILY@0630 [facility] Oxycodone HCl (Oxycodone Hcl Immed Release 5 Mg Tablet) 5 mg PO Q6H PRN PRN Reason: Pain, Moderate (Pain Scale 4-6 Pharmacy Consult (Consult Rx Perform Med Rec) 1 each MISCELLANE ONCE PRN PRN Reason: Consult order Propranolol HCl (Propranolol Hcl 10 Mg Tablet) 10 mg PO BID [facility]; Protocol Sodium Chloride (0.9 % Sodium Chloride Flush 3 Ml Syringe) 3 ml IVFLUSH QSHIFT [facility] Tizanidine HCl (Tizanidine Hcl 4 Mg Tablet) 6 mg PO BEDTIME PRN PRN Reason: Muscle Spasm Home Medications Medication Instructions Recorded Confirmed Last Taken Type adalimumab 40 mg/0.4 mL 40 mg subcut TH@0900 08/19/21 06/11/22 3 Days Ago History subcutaneous pen kit (Humira(CF) ~06/08/22 Pen) clonazepam 1 mg tablet 1 tab PO BID PRN Anxiety 08/19/21 06/11/22 3 Days Ago History ~06/08/22 loratadine 10 mg tablet 1 tab PO DAILY PRN Allergy Symptoms 08/19/21 06/11/22 3 Days Ago History ~06/08/22 omeprazole 20 mg capsule,delayed 2 cap PO DAILY@0630 08/19/21 06/11/22 3 Days Ago History release ~06/08/22 zolpidem 10 mg tablet 1 tab PO BEDTIME 08/19/21 06/11/22 3 Days Ago History ~06/08/22 hydrocortisone 1 % topical cream 1 appl topical BID PRN Itching 09/18/21 06/11/22 3 Days Ago History ~06/08/22 multivitamin with folic acid 400 1 tab PO DAILY 06/11/22 06/11/22 3 Days Ago History mcg tablet (Daily-Davis (with folic ~06/08/22 acid)) Physical Exam Vital Signs and Narrative: Vital Signs: Last Vital Signs Temp 97.7 F 06/11/22 14:30 Pulse 82 06/11/22 14:30 Resp 17 06/11/22 14:30 BP 117/82 06/11/22 14:30 Pulse Ox 95 06/11/22 14:30 O2 Del Method 06/11/22 14:30 BMI result Body Mass Index 26.1 Constitutional: Alert, in no acute distress. Mental Status: Oriented to person, place and time. Eyes: Pupils are equal, round, and reactive to light. Ear, Nose, and Throat: Oropharynx clear, mucous membranes moist. Ears and nose without deformities. Trachea midline. Respiratory: Clear to auscultation bilaterally. No wheezing, rales, or rhonchi. Cardiovascular: S1, S2 regular. No murmurs, rubs, or gallops. Gastrointestinal: Abdomen firm, mildly distended. Tender in RLQ. Hypoactive bowel sounds. Neurologic: Cranial nerves II-XI are grossly intact. NO focal neurological deficits. Moves all extremities spontaneously. Skin: No rashes of lesions. Musculoskeletal: No cyanosis or clubbing. Extremities: No edema. Psychiatric: Normal mood and affect. Results Labs CBC and Chem 7: 06/11/22 08:32 06/11/22 08:32 Labs: Laboratory Results - last 24 hr 06/11/22 06/11/22 06/11/22 08:32 08:32 08:32 MCV 91.0 MCH 31.0 MCHC 34.1 RDW 12.2 Plt Count 171 MPV 10.5 Absolute Nucleated RBC 0.000 Nucleated RBC % (auto) 0.0 ESR 8 Anion Gap 11 L Estim Creat Clear Calc 98.6 Estimated GFR > 60 Random Glucose 96 Calcium 9.8 Total Bilirubin 1.1 H Direct Bilirubin 0.4 AST 91 H ALT 137 H Alkaline Phosphatase 89 C-Reactive Protein 0.06 Total Protein 7.9 Albumin 4.5 Lipase 34 COVID-19 (LONG) COVID-19 Clin Com 06/11/22 13:57 MCV MCH MCHC RDW Plt Count MPV Absolute Nucleated RBC Nucleated RBC % (auto) ESR Anion Gap Estim Creat Clear Calc Estimated GFR Random Glucose Calcium Total Bilirubin Direct Bilirubin AST ALT Alkaline Phosphatase C-Reactive Protein Total Protein Albumin Lipase COVID-19 (LONG) Negative COVID-19 Clin Com See Note Imaging Radiologist's Impressions: Impressions Abdomen/Pelvis CT 06/11/22 11:40 IMPRESSION: 1. A cause for the patient's abdominal distention and vomiting has not been found. 2. Incidental findings as described above. Fleischner guidelines were followed. Assessment and Plan (1) Abdominal pain: Status: Acute (2) Intractable vomiting with nausea: Status: Acute (3) Diarrhea: Status: Acute Plan Pt is a 41-year-old male with a PMH significant for Crohn's disease, anxiety, a nd migraines who presents to the ED with a 4-day history of severe right-sided abdominal pain, diarrhea, and vomiting. He will be admitted for observation for acute n/v/d and po intolerance. # right-sided lower abdominal pain with acute N/V/D with PO intolerance -- etiology unclear: CT abd/pelvis negative for obvious IBD flare or SBO. No leukocytosis. Afebrile. Hemodynamically stable -- IVF maintenance -- allergic to multiple antiemetics. Phenergan and dilaudid ordered -- pain management with dilaudid and oxycodone on pain scale and tylenol -- diet as tolerated -- if diarrhea persists, C-Diff, stool studies, and occult stool -- if symptoms persist in am, place GI consult # Crohn's disease -- no evidence of acute flare at this time -- inflammatory markers normal, abd/ct normal, no leukocytosis -- s/p colectomy and j-pouch with colectomy reversal -- continue home meds # Anxiety --continue home meds # migraines -- continue prophylactic home meds Full code Attending: Dr. Hernandez DVT prophylaxis- lovenox Pt will be admitted for observation with an anticipated hospital stay of one n ight. Quality Stroke Does the patient have a stroke diagnosis?: No VTE Prior VTE?: No VTE Risk Level:: Medical - moderate - high VTE Device Contraindication: Treatment Not Indicated VTE Drug Contraindication: N/A - Med Ordered
--- OUTSIDE RECORDS SUMMARY | 2022-06-11 16:36 | XMS_ITS ---
:1980 Author Care Team Providers Name Role Phone [facility] Referring Provider [phone] [facility] Referring Provider [phone] Allergies None recorded. Medications Name Status Start [...] Diagnosis Provider 02/27/2022 Covid-19 Matilde Fairbanks MD: [address] [place] [id number], . Social History None recorded. Vaccine List [...]
[2022-06-11] MEDS: Lactated Ringers 1,000 ML 100 ML IVCONT (17:35)
[2022-06-11] MEDS: Propranolol HCL 10 MG TABLET PO (21:13)
[2022-06-11] MEDS: 0.9 % Sodium Chloride Flush 3 ML SYRINGE IVFLUSH (21:14)
[2022-06-12 03:28] VITALS: BP 100/65; PULSE 53; RESP 15; TEMP 36.7; O2SAT 97
[2022-06-12] MEDS: Lactated Ringers 1,000 ML 100 ML IVCONT (03:51)
[2022-06-12] MEDS: Omeprazole 40 MG CAPSULE.DR PO (06:02)
[2022-06-12 06:21] LABS: Hematocrit 40.3 % (42.0-52.0); Hemoglobin 13.6 g/dl (14.0-18.0); Mean Corpuscular HGB Conc 33.7 g/dl (31.0-36.0); Mean Corpuscular Hemoglobin 31.5 pg (27.0-33.0); Mean Corpuscular Volume 93.3 fL (80.0-98.0); Mean Platelet Volume 11.1 fL (9.4-12.4); Platelet Count 145 X10*3/uL (160-400); Red Blood Count 4.32 X10*6/uL (4.60-5.80); Red Cell Distribution Width 12.2 % (11.0-16.0); White Blood Count 3.6 X10*3/uL (4.8-10.8)
[2022-06-12 06:37] LABS: Anion Gap 9 (12-20); Blood Urea Nitrogen 7 mg/dL (9-16); Calcium 8.9 mg/dL (8.4-10.2); Carbon Dioxide 28 mmol/L (22-29); Chloride 104 mmol/L (96-108); Creatinine Clr Calc Pharmacy 119.9; Estimated Glomerular Filt Rate > 60; Glucose Random 84 mg/dL (60-115); Potassium 3.9 mmol/L (3.3-5.1); Sodium 137 mmol/L (135-145)
[2022-06-12] MEDS: oxyCODONE HCl Immed Release 5 MG TABLET PO (07:51)
[2022-06-12] MEDS: 0.9 % Sodium Chloride Flush 3 ML SYRINGE IVFLUSH (07:52)
[2022-06-12] MEDS: traMADoL HCL 50 MG TABLET PO (07:52)
[2022-06-12] MEDS: Topiramate 25 MG TABLET PO (07:52)
[2022-06-12] MEDS: Multivitamin TABLET 1 TAB PO (07:52)
[2022-06-12] MEDS: Acetaminophen 325 MG TABLET 650 MG PO (07:52)
[2022-06-12] MEDS: Propranolol HCL 10 MG TABLET PO (07:52)
[2022-06-12 07:53] VITALS: BP 104/57; PULSE 77; RESP 18; TEMP 37
--- NOTE | 2022-06-12 08:32 | HO.PM.IMPN ---
Subjective Subjective Date of Service: 06/12/22 Interval History: Pt seen for f/u for abdominal pain and distension, N/V, and diarrhea. Interval history: No acute symptoms overnight. Pt feels much better, with overnight resolution of abdominal pain and distension, nausea. No vomiting or diarrhea overnight. Pt was able to tolerate fluids and feels hungry this morning, looking forward to eating some pancakes. No chest pain or pressure, palpitations, or SOB. Review of Systems No abdominal pain or distention. No nausea, vomiting, diarrhea No chest pain/pressure Denies SOB Review of Systems: Yes all other systems are reviewed and are negative Physical Exam Vital Signs: Vital Signs: Last Vital Signs Temp 98.6 F 06/12/22 07:53 Pulse 77 06/12/22 07:53 Resp 18 06/12/22 07:53 BP 104/57 L 06/12/22 07:53 Pulse Ox 97 06/12/22 03:28 O2 Del Method 06/12/22 07:53 BMI result Body Mass Index 27.3 General: AOx3, no acute distress Resp: CTA bilaterally CVS: S1, S2, RRR GI: +BS, NT, no distention Skin: No rash Neuro: Motor grossly intact Psych: Appropriate affect Objective Data Active Medications Acetaminophen (Acetaminophen 325 Mg Tablet) 650 mg PO Q4H PRN PRN Reason: Pain, Mild (Pain Scale 1-3) Last Admin: 06/12/22 07:52 Dose: 650 mg Documented By: ROSS Clonazepam (Clonazepam 1 Mg Tablet) 1 mg PO BID PRN PRN Reason: Anxiety Enoxaparin Sodium (Enoxaparin Sodium 40 Mg/0.4 Ml Syringe) 40 mg SUBCUT Q24H [facility] Last Admin: 06/11/22 17:36 Dose: Not Given Documented By: YASH Non-Admin Reason: Patient Refused Hydromorphone HCl (Hydromorphone Hcl 1 Mg/Ml Syringe) 1 mg IVPUSH Q4H PRN; Protocol PRN Reason: Pain, Severe (Pain Scale 7-10) Last Admin: 06/11/22 21:13 Dose: 1 mg Documented By: LAKISHA Lactated Ringer's (Lr) 1,000 mls @ 100 mls/hr IVCONT .Q10H [facility] Last Admin: 06/12/22 03:51 Dose: 100 mls/hr Documented By: LAKISHA Promethazine HCl 12.5 mg/ (Sodium Chloride) 50.5 mls @ 202 mls/hr IV Q6H PRN PRN Reason: Nausea Loratadine (Loratadine 10 Mg Tablet) 10 mg PO DAILY PRN PRN Reason: Allergy Symptoms Multivitamins/Vitamin C (Multivitamin Tablet) 1 tab PO DAILY [facility] Last Admin: 06/12/22 07:52 Dose: 1 tab Documented By: ROSS Omeprazole (Omeprazole 40 Mg Capsule.Dr) 40 mg PO DAILY@0630 [facility] Last Admin: 06/12/22 06:02 Dose: 40 mg Documented By: LAKISHA Oxycodone HCl (Oxycodone Hcl Immed Release 5 Mg Tablet) 5 mg PO Q6H PRN PRN Reason: Pain, Moderate (Pain Scale 4-6 Last Admin: 06/12/22 07:51 Dose: 5 mg Documented By: ROSS Pharmacy Consult (Consult Rx Perform Med Rec) 1 each MISCELLANE ONCE PRN PRN Reason: Consult order Propranolol HCl (Propranolol Hcl 10 Mg Tablet) 10 mg PO BID [facility]; Protocol Last Admin: 06/12/22 07:52 Dose: 10 mg Documented By: ROSS Sodium Chloride (0.9 % Sodium Chloride Flush 3 Ml Syringe) 3 ml IVFLUSH [facility] Last Admin: 06/12/22 07:52 Dose: 3 ml Documented By: ROSS Tizanidine HCl (Tizanidine Hcl 4 Mg Tablet) 6 mg PO BEDTIME PRN PRN Reason: Muscle Spasm Topiramate (Topiramate 25 Mg Tablet) 25 mg PO DAILY [facility] Last Admin: 06/12/22 07:52 Dose: 25 mg Documented By: ROSS Tramadol HCl (Tramadol Hcl 50 Mg Tablet) 50 mg PO BID PRN PRN Reason: moderate pain (scale score 5-6) Last Admin: 06/12/22 07:52 Dose: 50 mg Documented By: ROSS Zolpidem Tartrate (Zolpidem Tartrate 5 Mg Tablet) 10 mg PO BEDTIME [facility] Last Admin: 06/11/22 21:19 Dose: Not Given Documented By: LAKISHA Non-Admin Reason: Patient Refused Labs CBC & Chem 7: 06/12/22 05:15 06/12/22 05:15 Labs: Laboratory Results - last 24 hr 06/11/22 06/11/22 06/11/22 08:32 08:32 08:32 MCV 91.0 MCH 31.0 MCHC 34.1 RDW 12.2 Plt Count 171 MPV 10.5 Absolute Nucleated RBC 0.000 Nucleated RBC % (auto) 0.0 ESR 8 Anion Gap 11 L Estim Creat Clear Calc 98.6 Estimated GFR > 60 Random Glucose 96 Calcium 9.8 Total Bilirubin 1.1 H Direct Bilirubin 0.4 AST 91 H ALT 137 H Alkaline Phosphatase 89 C-Reactive Protein 0.06 Total Protein 7.9 Albumin 4.5 Lipase 34 COVID-19 (LONG) COVID-19 Clin Com 06/11/22 06/12/22 06/12/22 13:57 05:15 05:15 MCV 93.3 MCH 31.5 MCHC 33.7 RDW 12.2 Plt Count 145 L MPV 11.1 Absolute Nucleated RBC 0.000 Nucleated RBC % (auto) 0.0 ESR Anion Gap 9 L Estim Creat Clear Calc 119.9 Estimated GFR > 60 Random Glucose 84 Calcium 8.9 D Total Bilirubin Direct Bilirubin AST ALT Alkaline Phosphatase C-Reactive Protein Total Protein Albumin Lipase COVID-19 (LONG) Negative COVID-19 Clin Com See Note Assessment and Plan (1) Abdominal pain: Status: Acute (2) Intractable vomiting with nausea: Status: Acute (3) Diarrhea: Status: Acute (4) Anxiety: Status: Acute Plan Pt is a 41-year-old male with a PMH significant for Crohn's disease, anxiety, and migraines who presents to the ED with a 4-day history of severe right-sided abdominal pain, diarrhea, and vomiting. He was admitted for observation for acute n/v/d and po intolerance. # right-sided lower abdominal pain with acute N/V/D with PO intolerance -- now resolved. Abd soft, non-tender, and no N/V/D overnight -- etiology unclear: CT abd/pelvis negative for obvious IBD flare or SBO. No leukocytosis. Afebrile. Hemodynamically stable -- IVF maintenance -- allergic to multiple antiemetics. Phenergan and dilaudid ordered -- pain management with dilaudid and oxycodone on pain scale and tylenol -- diet as tolerated # Crohn's disease -- no evidence of acute flare at this time -- inflammatory markers normal, abd/ct normal, no leukocytosis -- s/p colectomy and j-pouch with colectomy reversal -- continue home meds # Anxiety --continue home meds # migraines -- continue prophylactic home meds Full code Attending: Dr. Hernandez DVT prophylaxis- lovenox Pt feeling much better and back to baseline. If tolerates breakfast, will be discharged later today.. Quality Stroke Does the patient have a stroke diagnosis?: No VTE Prior VTE?: No VTE Risk Level:: Medical - moderate - high VTE Device Contraindication: Treatment Not Indicated VTE Drug Contraindication: N/A - Med Ordered
--- NOTE | 2022-06-12 10:08 | MHC.CM.PN ---
TIMOTHY 06/12/22, EMR REVIEWED, CM MET W/PT WHO REPORTS HE LIVES W/ AND SHE WILL TRANSPORT PT, PT REPORTS HE IS INDEP W/ALL CARE, DENIES USE OF DME/HOME SERVICES, DC ORDERED AND PT WILL NOT NEED HOME SERVICES, PT VERIFIES PCP LIBRADO DONAHUE AND HAS BEEN EDUCATED ON AND DECLINED TO COMPLETE A HCP AT THIS TIME. D/C PLAN: HOME TODAY NO SERVICES W/FAMILY FOR TRANSPORT
--- NOTE | 2022-06-12 12:16 | PM.DS ---
DS: Providers Provider Date of Service: 06/12/22 Date of admission: 06/11/22 15:52 Date of discharge: 06/12/22 Primary care physician: Manuel Harris MD DS: Diagnosis Discharge Diagnosis (1) Abdominal pain: Status: Acute (2) Intractable vomiting with nausea: Status: Acute (3) Diarrhea: Status: Acute (4) Anxiety: Status: Acute DS: Summary Hospital Course Hospital Course: Presenting HPI: Chief Complaint: Abdominal Pain Pt is a 41-year-old male with a PMH significant for Crohn's disease, anxiety, and migraines who presents to the ED with a 4-day history of severe right-sided abdominal pain, diarrhea, and vomiting. Pt has a history of a total colostomy and J-pouch with colostomy reversal. A former pt of Dr. Espinosa, is now followed by GI at [facility]. States he has chronic diarrhea since his abdominal surgeries, but has been much worse lately. Reports noticing some occasional bright red blood in stool. Denies hematemesis. Abdominal pain is located in the right lower quadrant and radiates to the back, rates 10/10. Feels abdomen is distended, though denies F/C, recent travel, or eating suspicious food. Believes it to be a flareup of his Crohn's. Currently unable to tolerate oral food or liquids. Denies chest pain but claims a history of palpitations, which he attributes to his anxiety. In the ED workup was unremarkable. CT showed no acute findings that would account for the pt's abdominal distention and vomiting. Labs revealed mild transaminitis with normal alk-phos. Normal CRP and sed rate. Tox screen pending. Pt has significant medical allergies/intolerances and states that dilaudid and phenergan are the only meds he can tolerate for these types of symptoms. He was given three rounds of dilaudid and phenergan with no resolution of symptoms. The pt will be admitted for observation to treat intractable abdominal pain and nausea. Hospital course: Patient was admitted for observation overnight. Pain was managed with Dilaudid, oxycodone, and Tylenol on a pain scale. Phenergan was used for control of nausea. Patient reported no acute concerns during his stay. Patient was able to tolerate some liquids PO during the night. During the night number patient's pain, nausea, vomiting, intractable diarrhea, and abdominal distention resolved. During the morning the patient was feeling much better and back to baseline, and able to tolerate a regular diet. Patient was agreeable for discharge. Status at Discharge Functional status at discharge: independent ambulation Overall status at discharge: patient is back to baseline Time Spent with Patient Time attestation: Total time spent providing and/or coordinating discharge services: Discharge coordination time: Greater than 30 minutes Quality: Safe Use of Opioids Does Pt have an Active Cancer Diagnosis on the Problem List?: No Quality: Stroke Does the patient have a stroke diagnosis?: No Physical Exam Vital Signs: Vital Signs: Last Vital Signs Temp 98.6 F 06/12/22 07:53 Pulse 77 06/12/22 07:53 Resp 18 06/12/22 07:53 BP 104/57 L 06/12/22 07:53 Pulse Ox 97 06/12/22 03:28 O2 Del Method 06/12/22 07:53 BMI result Body Mass Index 27.3 General: AOx3, no acute distress Resp: CTA bilaterally CVS: S1, S2, RRR GI: +BS, NT, no distention Skin: No rash Neuro: Motor grossly intact Psych: Appropriate affect DS: Data Data Completed and Pending Completed studies during hospitalization [Text1]: Procedures Excision of Ileum, Via Natural or Artificial Opening Endoscopic, Diagnostic (09/18/21) Labs on day of discharge: Laboratory Results - last 24 hr 06/11/22 06/12/22 06/12/22 13:57 05:15 05:15 WBC 3.6 L RBC 4.32 L Hgb 13.6 L Hct 40.3 L MCV 93.3 MCH 31.5 MCHC 33.7 RDW 12.2 Plt Count 145 L MPV 11.1 Absolute Nucleated RBC 0.000 Nucleated RBC % (auto) 0.0 Sodium 137 Potassium 3.9 Chloride 104 Carbon Dioxide 28 Anion Gap 9 L BUN 7 L Creatinine 0.75 Estim Creat Clear Calc 119.9 Estimated GFR > 60 Random Glucose 84 Calcium 8.9 D COVID-19 (LONG) Negative COVID-19 Clin Com See Note Discharge Plan Discharge Anticipated Discharge Date/Time: 06/12/22 11:50 Patient Disposition: Home, Self-Care Discharge Diagnosis: Abdominal pain Referrals: Manuel Harris MD [Primary Care Provider] - 1 Week Discharge Medications: Continued tizanidine 4 mg tablet 6 mg PO BEDTIME PRN (Reason: Muscle Spasm) 30 Days Qty: 135 3RF propranolol 10 mg tablet 10 mg PO BID 90 Days Qty: 180 1RF hydrocortisone 1 % cream 1 appl topical BID PRN (Reason: Itching) tramadol 50 mg tablet 50 mg PO BID PRN (Reason: moderate pain (scale score 5-6)) Qty: 14 0RF clonazepam 1 mg tablet 1 tab PO BID PRN (Reason: Anxiety) omeprazole 20 mg capsule,delayed release(DR/EC) 2 cap PO DAILY@0630 zolpidem 10 mg tablet 1 tab PO BEDTIME loratadine 10 mg tablet 1 tab PO DAILY PRN (Reason: Allergy Symptoms) Humira(CF) Pen 40 mg/0.4 mL pen injector kit 40 mg subcut TH@0900 multivitamin with folic acid [Daily-Davis (with folic acid)] 400 mcg tablet 1 tab PO DAILY topiramate 25 mg tablet 25 - 50 mg PO DAILY 30 Days Qty: 60 3RF Discharge Orders: Discharge Order (Routine); Ordered 06/12/22 Ordered By: Errol Guerrero Activity on Discharge: As tolerated Stand Alone Forms: Patient Portal Discharge page Care Plan Goals: full recovery from abdominal pain Health Concerns: crohn's disease Plan of Treatment: continue taking all your medications as usual Follow up with your Doctor in a week Assessment: as above Discharge Date/Time: 06/12/22 13:12
== END 2022-06-12 13:12 | disposition home or self-care (01) ==
LOC: HO.ED 13:57 → HO.EDOVER 16:35 → HO.S3 17:22
PROVIDERS: Physician Assistant; Admitting Provider Student in an Organized Health Care Education/Training Program; Emergency Provider Emergency Medicine; PCP Internal Medicine; Visit Provider Internal Medicine
DX: R10.31 Right lower quadrant pain (principal); R11.2 Nausea with vomiting, unspecified; Z20.822 Contact with and (suspected) exposure to COVID-19; K50.90 Crohn's disease, unspecified, without complications; G89.4 Chronic pain syndrome; F41.9 Anxiety disorder, unspecified; Z79.891 Long term (current) use of opiate analgesic; Z79.899 Other long term (current) drug therapy
CPT/HCPCS: 36415; 74177; 76376; 80048; 80076; 83690; 85027; 85652; 86140; 87635; 96361; 96365; 96374; 96375; 96376; 99218; 99285; J1170; J1200; J2550; Q9967

== ENCOUNTER 2022-07-14 08:03 | Emergency (ER) | payer OTHER, SELFPAY ==
--- NOTE | ~2022-07-14 | CT_ITS ---
EXAMINATION: CT ABDOMEN AND PELVIS WITH CONTRAST CLINICAL INFORMATION: History of Crohn's disease. COMPARISON: None TECHNIQUE: Multidetector volumetric images were obtained from the superior aspect of the liver through the pubic symphysis following administration 85 mL of Omnipaque 350 intravenous contrast. Sagittal and coronal reformatted images were obtained on the technologist's workstation. Oral contrast: No This CT examination was performed using dose optimization techniques as appropriate, variously including the following: *Automated exposure control *Adjustment of mA and/or kV according to patient size (this includes techniques or standardized protocols for targeted exams where dose is matched to indication/reason for exam; i.e. extremities or head) *Use of iterative reconstruction technique DLP: 512 mGy-cm FINDINGS: LUNG BASES: The lung bases are clear. The heart size is normal. LIVER, GALLBLADDER, AND BILIARY TREE: The liver is normal in size, shape, and attenuation. No focal hepatic lesion or biliary ductal dilatation is present. The gallbladder has been surgically removed. PANCREAS: Unremarkable. SPLEEN: Borderline spleen measuring 14 cm.. ADRENAL GLANDS: Unremarkable. KIDNEYS AND URETERS: The kidneys are normal in size, shape, and attenuation. No hydronephrosis, hydroureter, or calculi seen. No perinephric stranding. BLADDER: Unremarkable. GASTROINTESTINAL TRACT: There are postsurgical changes in sigmoid region with widely patent lumen. There is scattered stool in the colon without distention. There are surgical nuria in right lower quadrant and left upper to mid quadrant likely from partial colectomy and small bowel to colon anastomosis. . There is mural thickening involving some of the small bowel loops in the left mid to lower quadrant but no fat stranding seen. There is best visualized on axial images 34/3 through 41/3 ABDOMINAL WALL: Small umbilical hernia containing fat is noted. LYMPH NODES: No abnormal retroperitoneal mesenteric lymph nodes seen. VASCULAR: Unremarkable. PELVIC VISCERA: The uterus is small or surgically removed. No adnexal mass or free fluid seen. OSSEOUS STRUCTURES: No aggressive lytic or sclerotic process seen. CT/CT abdomen pelvis w IV con IMPRESSION: Postsurgical changes left upper quadrant and pelvis from small bowel and partial sigmoid colon resection. There DOS pneumonic segments are widely patent. There is however mural thickening involving small bowel loops in the left mid and lower quadrant likely from known Crohn's disease. No fat stranding seen in the peritoneum. Fleischner guidelines were followed.
[2022-07-14 08:37] VITALS: BP 101/66; PULSE 67; RESP 18; TEMP 36.3; O2SAT 98; BMI 26.6
--- OUTSIDE RECORDS SUMMARY | 2022-07-14 09:11 | XMS_ITS ---
:1980 Author Care Team Providers Name Role Phone [facility] Referring Provider [phone] [facility] Referring Provider [phone] Allergies None recorded. Medications Name Status Start [...] Diagnosis Provider 02/27/2022 Covid-19 Matilde Fairbanks MD: [address] [place] [id number], . Social History None recorded. Vaccine List [...]
[2022-07-14 09:19] LABS: MANUAL DIFF FLAG NO
[2022-07-14 09:22] LABS: Basophils Percent Auto 0.3 % (0-2); Eosinophils Percent Auto 0.6 % (0-4); Imm Gran Abs Auto 0.01 X10*3/uL (0.00-0.03); Imm Gran Pct Auto 0.2 % (0.0-0.4); Lymphocytes Absolute Auto 1.2 X10*3/uL (1.2-4.9); Lymphocytes Percent Auto 18.4 % (20-40); Mean Corpuscular HGB Conc 34.1 g/dl (31.0-36.0); Mean Corpuscular Hemoglobin 31.4 pg (27.0-33.0); Mean Corpuscular Volume 92.1 fL (80.0-98.0); Mean Platelet Volume 10.7 fL (9.4-12.4); Monocytes Absolute Auto 0.3 X10*3/uL (0.1-1.2); Monocytes Percent Auto 4.8 % (2-11); Neutrophils Percent Auto 75.7 % (45-73); Platelet Count 146 X10*3/uL (160-400); Red Blood Count 4.78 X10*6/uL (4.60-5.80); Red Cell Distribution Width 12.4 % (11.0-16.0); White Blood Count 6.6 X10*3/uL (4.8-10.8)
--- NOTE | 2022-07-14 09:41 | ED.ABDPAIN ---
HPI - Abdominal Pain General Chief Complaint: Abdominal Pain Stated Complaint: Crohns flare Time Seen by Provider: 07/14/22 09:21 Source: patient Mode of arrival: ambulatory Limitations: no limitations History of Present Illness HPI narrative: 41-year-old male with a history of ulcerative colitis status post colectomy and J-pouch in 2006 at [facility] with subsequent diagnosis of Crohn's disease on Humira weekly presents with 3 days of generalized abdominal pain, distension, vomiting and diarrhea. Patient denies any bloody stools. Patient denies fevers, chills, urinary symptoms. Patient unable to quantify vomiting and diarrhea. Patient reports he had been seen by Dr. His goldman on but then changed to GI to [facility]. This has been in can be it to him and he does have an appointment to see Dr. Espinosa again to resume care on July 22. Patient does have a history of chronic pain and is currently on tramadol prn home. MD elicited complaint: abdominal pain Related Data Home Medications Medication Instructions Recorded Confirmed adalimumab 40 mg/0.4 mL 40 mg subcut TH@0900 08/19/21 06/11/22 subcutaneous pen kit (Humira(CF) Pen) clonazepam 1 mg tablet 1 tab PO BID PRN Anxiety 08/19/21 06/11/22 loratadine 10 mg tablet 1 tab PO DAILY PRN Allergy Symptoms 08/19/21 06/11/22 omeprazole 20 mg capsule,delayed 2 cap PO DAILY@0630 08/19/21 06/11/22 release zolpidem 10 mg tablet 1 tab PO BEDTIME 08/19/21 06/11/22 hydrocortisone 1 % topical cream 1 appl topical BID PRN Itching 09/18/21 06/11/22 multivitamin with folic acid 400 1 tab PO DAILY 06/11/22 06/11/22 mcg tablet (Daily-Davis (with folic acid)) Previous Rx's Medication Instructions Recorded tizanidine 4 mg tablet 6 mg PO BEDTIME PRN Muscle Spasm 03/25/22 30 days #135 tabs propranolol 10 mg tablet 10 mg PO BID 90 days #180 tabs 03/26/22 tramadol 50 mg tablet 50 mg PO BID PRN moderate pain 04/17/22 (scale score 5-6) #14 tabs topiramate 25 mg tablet 25 - 50 mg PO DAILY 30 days #60 06/03/22 tabs sumatriptan succinate 100 mg tablet 50 - 100 mg PO .COMPLEX PRN 06/14/22 migraine headache 30 days #12 tabs magnesium oxide 400 mg (241.3 mg 400 mg PO BEDTIME 30 days #30 tabs 07/03/22 magnesium) tablet metronidazole 500 mg tablet 500 mg PO BID 7 days #14 tabs 07/14/22 oxycodone 5 mg tablet 5 mg PO Q8H PRN pain #5 tabs 07/14/22 promethazine 25 mg tablet 25 mg PO Q6H PRN nausea and 07/14/22 vomiting #10 tabs Allergies Allergy/AdvReac Type Severity Reaction Status Date / Time ondansetron [Ondansetron] Allergy Mild HIVES Verified 06/03/22 13:18 Sulfa (Sulfonamide Allergy Mild UNKNOWN Verified 06/03/22 13:18 Antibiotics) ketorolac Allergy Unknown Unknown Verified 06/03/22 13:18 meperidine [Demerol] Allergy Unknown Unknown Verified 06/03/22 13:18 metoclopramide [Reglan] Allergy Unknown Unknown Verified 06/03/22 13:18 morphine [Morphine] Allergy Unknown RASH Verified 06/03/22 13:18 haloperidol [From Haldol] Allergy Anaphylaxis Verified 06/03/22 13:18 ketamine Allergy Unknown Verified 06/03/22 13:18 From REGLAN Allergy Mild PT UNSURE Uncoded 06/03/22 13:18 BUT STATES HE IS ALLERGIC Compro Allergy Unknown Unknown Uncoded 06/03/22 13:18 From COMPAZINE Allergy Unknown ITCHING Uncoded 06/03/22 13:18 From Demerol Allergy Unknown ITCHY HIVES Uncoded 06/03/22 13:18 From Toradol Allergy Unknown UNK Uncoded 06/03/22 13:18 Review of Systems Review of Systems Yes all other systems are reviewed and are negative Constitutional: Reports no additional constitutional complaints, Denies body ache(s), Denies chills, Denies fever(s), Denies headache(s) and Denies weakness Eyes: Reports no additional eye complaints and Denies change in vision Reports system reviewed and no additional complaints, except as documented, Denies dizziness, Denies headache(s), Denies nasal congestion, Denies nasal discharge and Denies neck pain Cardiovascular: Reports no additional cardiovascular complaints, Denies chest pain, Denies leg edema and Denies dyspnea Respiratory: Reports no additional respiratory complaints, Denies cough and Denies dyspnea Gastrointestinal: Reports no additional gastrointestinal complaints, Reports abdominal pain, Reports diarrhea, Reports nausea and Reports vomiting Genitourinary: Denies urinary incontinence Musculoskeletal: Reports no additional musculoskeletal complaints, Denies back pain, Denies arthralgias, Denies joint swelling, Denies neck pain, Denies numbness and Denies tingling Skin/Breast: Reports system reviewed and no additional complaints, except as docu and Denies rash Reports system reviewed and no additional complaints, except as documented, Denies dizziness, Denies headache(s), Denies numbness, Denies tingling and Denies weakness PMFSH Past Medical History Attestation statement: The following information was validated with the patient. Source: old records reviewed and nursing notes reviewed Medical History Anxiety Cervicalgia Crohn's disease IBD (inflammatory bowel disease) Migraine Partial small bowel obstruction Surgical History History of colostomy reversal History of esophagogastroduodenoscopy (EGD) History of surgery on arm Hx of colonoscopy S/P colostomy Family History Family History Mother HTN (hypertension) Social History Social History Household Members: Spouse Housing: House Do you presently have visiting nurse or other home services: No Alcohol intake: unknown Patient Tobacco Use Status: Never used Tobacco Smoked in Last 30 Days: No Advance Directives: No Advance Directives Information Provided: No service: No Current occupational status: disabled Physical Exam ED Vital Signs: Vital Signs - 24 hr 07/14/22 08:37 07/14/22 13:36 Temperature 97.4 F Pulse Rate 67 67 Respiratory Rate 18 18 Blood Pressure 101/66 112/72 Pulse Oximetry 98 98 Oxygen Delivery Method Room Air Room Air BMI result Body Mass Index 26.6 Const General: cooperative, healthy appearing, comfortable and no acute distress Orientation/consciousness: patient oriented x3 Limitations: no limitations HENMT Head: Yes normal to inspection Ears: hearing grossly normal bilaterally Eyes General: appearance normal, both eyes and all related structures Pupils: Equal, round and reactive pupils present Neck Neck: Yes normal visual inspection, Yes full ROM, Yes no lymphadenopathy and Yes no meningeal signs Chest Chest palpation & inspection: normal inspection of the chest Resp Effort & Inspection: normal respiratory effort Auscultation: clear to auscultation bilaterally Cardio Rate: regular rate Rhythm: regular rhythm Peripheral pulses: Peripheral pulses 2+ throughout GI Inspection: Yes normal to inspection Palpation (GI): Tenderness to palpation present (GI) (Diffusely tender) General: Yes no CVA tenderness Back/Spine/Pelvis Back: no CVA tenderness Thoracic/Lumbar Spine: thoracic and lumbar spine normal to inspection Skin General skin exam: no rashes or lesions noted Neuro General: patient oriented x3, moves all extremities and no meningeal signs Cranial nerves: Yes Equal, round and reactive pupils present Cognition (Neuro): normal cognition Gait exam (Neuro): Normal gait present Extrem General: Yes normal to inspection, Yes no pedal edema and Yes no calf tenderness Course Course Course Narrative: Patient is feeling improved. Patient tolerating p.o.. Patient has follow-up appointment with GI on July 22. Will discuss with his flavoring machine operator. Stool studies sent. Patient tolerating p.o. Did offer admission if patient required to have vomiting or abdominal pain the patient feels comfortable being discharged home with follow-up outpatient with his GI Medical Decision Making Medical Decision Making [facility] Narrative: This is a 41-year-old male with a history of Crohn's disease on Humira, chronic pain presents with reports of 3 days of abdominal pain, abdominal distension, vomiting and diarrhea with concern for Crohn's flare. On exam patient with diffuse abdominal tenderness, no rebound or guarding. Vitals stable. Will check labs, UA, CT abdomen and pelvis. Patient on multiple medication allergies, history of chronic pain. Patient to receive IV fluids, Phenergan, dilaudid Differential Diagnosis Differential Diagnoses: The differential diagnosis associated with the presentation includes Crohn's flare, bowel obstruction, pouchitis Consult Healthcare Provider Management of the patient was discussed with: Instructor Decorating Spoke to Dr. Espinosa from GI. Concern for possible pouchitis. Dr. Espinosa recommended sending stool studies as patient is having diarrhea. We also discussed Crohn's flare. At this time does not but the patient is having Crohn's flare and so recommended holding on prednisone course. Did recommend treating with Flagyl for presumed pouchitis Lab Data MDM Lab Attestation statement: I reviewed the patient's lab results. Result Diagrams: 07/14/22 09:16 07/14/22 09:16 Labs: Lab Results 07/14/22 07/14/22 07/14/22 Range/Units 09:16 09:16 09:16 WBC 6.6 (4.8-10.8) X10*3/uL RBC 4.78 (4.60-5.80) X10*6/uL Hgb 15.0 (14.0-18.0) g/dl Hct 44.0 (42.0-52.0) % MCV 92.1 (80.0-98.0) fL MCH 31.4 (27.0-33.0) pg MCHC 34.1 (31.0-36.0) g/dl RDW 12.4 (11.0-16.0) % Plt Count 146 L (160-400) X10*3/uL MPV 10.7 (9.4-12.4) fL Immature Gran % (Auto) 0.2 (0.0-0.4) % Neut % (Auto) 75.7 H (45-73) % Lymph % (Auto) 18.4 L (20-40) % [facility] % (Auto) 4.8 (2-11) % Eos % (Auto) 0.6 (0-4) % Baso % (Auto) 0.3 (0-2) % Lymph # (Auto) 1.2 (1.2-4.9) X10*3/uL [facility] # (Auto) 0.3 (0.1-1.2) X10*3/uL Eos # (Auto) 0.0 (0.0-0.4) X10*3/uL Baso # (Auto) 0.0 (0.0-0.2) X10*3/uL Abs Immat Gran (auto) 0.01 (0.00-0.03) X10*3/uL Absolute Neuts (auto) 5.0 (2.0-8.3) x10*3/uL Absolute Nucleated RBC 0.000 (0.0-0.012) X10*3/uL Nucleated RBC % (auto) 0.0 (0.0-0.2) /100WBC ESR 10 (0-15) MM/HR Sodium 141 (135-145) mmol/L Potassium 4.0 (3.3-5.1) mmol/L Chloride 106 (96-108) mmol/L Carbon Dioxide 27 (22-29) mmol/L Anion Gap 12 (12-20) BUN 11 (9-16) mg/dL Creatinine 0.77 (0.5-1.4) mg/dL Estim Creat Clear Calc 107.6 Estimated GFR > 60 Random Glucose 106 (60-115) mg/dL Calcium 9.7 D (8.4-10.2) mg/dL Total Bilirubin 1.5 H (0.0-1.0) mg/dL Direct Bilirubin 0.6 H (0.0-0.5) mg/dL AST 29 (5-37) U/L ALT 121 H (0-40) U/L Alkaline Phosphatase 92 D (39-117) U/L C-Reactive Protein < 0.04 (< or = 0.50) mg/dL Total Protein 8.2 H (6.5-8.0) g/dL Albumin 4.6 (3.5-5.0) g/dL Lipase 28 (8-78) U/L C. difficile Tox B Gene (Negative) 07/14/22 Range/Units 13:59 WBC (4.8-10.8) X10*3/uL RBC (4.60-5.80) X10*6/uL Hgb (14.0-18.0) g/dl Hct (42.0-52.0) % MCV (80.0-98.0) fL MCH (27.0-33.0) pg MCHC (31.0-36.0) g/dl RDW (11.0-16.0) % Plt Count (160-400) X10*3/uL MPV (9.4-12.4) fL Immature Gran % (Auto) (0.0-0.4) % Neut % (Auto) (45-73) % Lymph % (Auto) (20-40) % [facility] % (Auto) (2-11) % Eos % (Auto) (0-4) % Baso % (Auto) (0-2) % Lymph # (Auto) (1.2-4.9) X10*3/uL [facility] # (Auto) (0.1-1.2) X10*3/uL Eos # (Auto) (0.0-0.4) X10*3/uL Baso # (Auto) (0.0-0.2) X10*3/uL Abs Immat Gran (auto) (0.00-0.03) X10*3/uL Absolute Neuts (auto) (2.0-8.3) x10*3/uL Absolute Nucleated RBC (0.0-0.012) X10*3/uL Nucleated RBC % (auto) (0.0-0.2) /100WBC ESR (0-15) MM/HR Sodium (135-145) mmol/L Potassium (3.3-5.1) mmol/L Chloride (96-108) mmol/L Carbon Dioxide (22-29) mmol/L Anion Gap (12-20) BUN (9-16) mg/dL Creatinine (0.5-1.4) mg/dL Estim Creat Clear Calc Estimated GFR Random Glucose (60-115) mg/dL Calcium (8.4-10.2) mg/dL Total Bilirubin (0.0-1.0) mg/dL Direct Bilirubin (0.0-0.5) mg/dL AST (5-37) U/L ALT (0-40) U/L Alkaline Phosphatase (39-117) U/L C-Reactive Protein (< or = 0.50) mg/dL Total Protein (6.5-8.0) g/dL Albumin (3.5-5.0) g/dL Lipase (8-78) U/L C. difficile Tox B Gene NEGATIVE (Negative) Independent Interpretation I performed an independent interpretation of an: CT Scan (Independently reviewed the CT scan of the abdomen and pelvis and reviewed agree with radiologist's report) Radiology Impression Discussion of test interpretation with radiology: I have reviewed the radiologist's reading. Radiologist Impression: FINDINGS: LUNG BASES: The lung bases are clear. The heart size is normal.? LIVER, GALLBLADDER, AND BILIARY TREE: The liver is normal in size, shape, and attenuation. No focal hepatic lesion or biliary ductal dilatation is present. The gallbladder has been surgically removed.? PANCREAS: Unremarkable.? SPLEEN: Borderline spleen measuring 14 cm..? ADRENAL GLANDS: Unremarkable.? KIDNEYS AND URETERS: The kidneys are normal in size, shape, and attenuation. No hydronephrosis, hydroureter, or calculi seen. No perinephric stranding. ? BLADDER: Unremarkable.? GASTROINTESTINAL TRACT: There are postsurgical changes in sigmoid region with widely patent lumen. There is scattered stool in the colon without distention. There are surgical nuria in right lower quadrant and left upper to mid quadrant likely from partial colectomy and small bowel to colon anastomosis. . There is mural thickening involving some of the small bowel loops in the left mid to lower quadrant but no fat stranding seen. There is best visualized on axial images 34/3 through 41/3 ABDOMINAL WALL: Small umbilical hernia containing fat is noted.? LYMPH NODES: No abnormal retroperitoneal mesenteric lymph nodes seen. VASCULAR: Unremarkable. PELVIC VISCERA: The uterus is small or surgically removed. No adnexal mass or free fluid seen.? OSSEOUS STRUCTURES: No aggressive lytic or sclerotic process seen.? CT/CT abdomen pelvis w IV con IMPRESSION: Postsurgical changes left upper quadrant and pelvis from small bowel and partial sigmoid colon resection. There DOS pneumonic segments are widely patent. There is however mural thickening involving small bowel loops in the left mid and lower quadrant likely from known Crohn's disease. No fat stranding seen in the peritoneum.? ? External Record Review External record reviewed: Inpatient record and Office record Reviewed last inpatient visit in the beginning of June for Crohn's flare with intractable pain vomiting Review GI note Medications Administered Discontinued Medications Generic Name Dose Route Start Last Admin Trade Name Freq PRN Reason Stop Dose Admin Diphenhydramine HCl 25 mg 07/14/22 09:42 07/14/22 11:34 Diphenhydramine Hcl 50 Mg/Ml Vial IVPUSH 07/14/22 09:43 Not Given ONCE ONE Hydromorphone HCl 1 mg 07/14/22 09:42 07/14/22 10:44 Hydromorphone Hcl 1 Mg/Ml Syringe IVPUSH 07/14/22 09:43 1 mg ONCE ONE Administration Protocol Hydromorphone HCl 1 mg 07/14/22 11:36 07/14/22 11:56 Hydromorphone Hcl 1 Mg/Ml Syringe IVPUSH 07/14/22 11:37 1 mg ONCE ONE Administration Protocol Hydromorphone HCl 1 mg 07/14/22 14:13 07/14/22 14:19 Hydromorphone Hcl 1 Mg/Ml Syringe IVPUSH 07/14/22 14:14 1 mg ONCE ONE Administration Protocol Promethazine HCl 6.25 mg/ 50.25 mls @ 201 mls/hr 07/14/22 09:42 07/14/22 11:29 Sodium Chloride IV 07/14/22 09:43 Infused ONCE ONE Infusion Iohexol 100 ml 07/14/22 11:12 07/14/22 11:12 Iohexol 350 Mg/Ml 100 Ml Infus..Btl IV 07/14/22 11:13 85 ml ONCE ONE Administration Discharge Plan Discharge Clinical Impression: Pouchitis Patient Disposition: Home, Self-Care Instructions: Crohn Disease (ED) Additional Instructions: We believe that you may have pouchitis which is inflammation of your J pouch We offered admission but you declined this. You prefer to go home and follow-up outpatient with your flavoring machine operator on July 22 Please return if your symptoms worsen Start your antibiotics today. We sent stool studies of will call you if these are positive for any bacteria that require additional treatment Prescriptions: New promethazine 25 mg tablet 25 mg PO Q6H PRN (Reason: nausea and vomiting) Qty: 10 0RF metronidazole 500 mg tablet 500 mg PO BID 7 Days Qty: 14 0RF oxycodone 5 mg tablet 5 mg PO Q8H PRN (Reason: pain) Qty: 5 0RF Rx Instructions: Partial Fill upon patient request. No Action tizanidine 4 mg tablet 6 mg PO BEDTIME PRN (Reason: Muscle Spasm) 30 Days Qty: 135 3RF propranolol 10 mg tablet 10 mg PO BID 90 Days Qty: 180 1RF magnesium oxide 400 mg (241.3 mg magnesium) tablet 400 mg PO BEDTIME 30 Days Qty: 30 6RF Rx Instructions: may hold for loose stools hydrocortisone 1 % cream 1 appl topical BID PRN (Reason: Itching) tramadol 50 mg tablet 50 mg PO BID PRN (Reason: moderate pain (scale score 5-6)) Qty: 14 0RF clonazepam 1 mg tablet 1 tab PO BID PRN (Reason: Anxiety) omeprazole 20 mg capsule,delayed release(DR/EC) 2 cap PO DAILY@0630 zolpidem 10 mg tablet 1 tab PO BEDTIME loratadine 10 mg tablet 1 tab PO DAILY PRN (Reason: Allergy Symptoms) Humira(CF) Pen 40 mg/0.4 mL pen injector kit 40 mg subcut TH@0900 multivitamin with folic acid [Daily-Davis (with folic acid)] 400 mcg tablet 1 tab PO DAILY topiramate 25 mg tablet 25 - 50 mg PO DAILY 30 Days Qty: 60 3RF sumatriptan succinate 100 mg tablet 50 - 100 mg PO .COMPLEX PRN (Reason: migraine headache) 30 Days Qty: 12 6RF Rx Instructions: 50 - 100 mg orally at onset of headache, may repeat in 2 hrs PRN; max 2 tabs per day or 4 tabs/week (may take with Ibuprofen) Referrals: Kyle Espinosa MD [Physician] - 1 week Interventions: ED Discharge Assessment Last Done: 07/14/22 15:46 Discharge Date/Time: 07/14/22 15:56
[2022-07-14 09:45] LABS: Alanine Aminotransferase 121 U/L (0-40); Albumin Level 4.6 g/dL (3.5-5.0); Alkaline Phosphatase 92 U/L (39-117); Anion Gap 12 (12-20); Aspartate Amino Transferase 29 U/L (5-37); Bilirubin Direct 0.6 mg/dL (0.0-0.5); Bilirubin Total 1.5 mg/dL (0.0-1.0); Blood Urea Nitrogen 11 mg/dL (9-16); Calcium 9.7 mg/dL (8.4-10.2); Carbon Dioxide 27 mmol/L (22-29); Chloride 106 mmol/L (96-108); Creatinine Clr Calc Pharmacy 107.6; Estimated Glomerular Filt Rate > 60; Glucose Random 106 mg/dL (60-115); Lipase 28 U/L (8-78); Sodium 141 mmol/L (135-145); Total Protein 8.2 g/dL (6.5-8.0)
[2022-07-14 10:30] LABS: C Reactive Protein < 0.04 mg/dL (< or = 0.50)
[2022-07-14] MEDS: HYDROmorphone HCl 1 MG/ML SYRINGE IVPUSH ×3 (10:44→14:19)
[2022-07-14 11:03] LABS: Erythrocyte Sedimentation Rate 10 MM/HR (0-15)
[2022-07-14] MEDS: iohexoL 350 MG/ML 100 ML INFUS..BTL IV (11:12)
--- NOTE | 2022-07-14 11:31 | PC.NURSE ---
Patient reports minimal effectiveness with admin pain med will CTM
--- NOTE | 2022-07-14 11:31 | PC.NURSE ---
Patient AO x 4 presents with ABD pain has history of Crohns tenderness with ausculatation/palpation. AOx 4 neuros intact vann with purpose no SOB or respiratory distress noted will CTM
--- NOTE | 2022-07-14 11:37 | PC.NURSE ---
Notified MD of patient continued pain awaiting orders
[2022-07-14 13:36] VITALS: BP 112/72; PULSE 67; RESP 18; O2SAT 98
--- NOTE | 2022-07-14 13:53 | PC.NURSE ---
Notified paient had pain post defecation will await orders
[2022-07-14 15:11] LABS: CDiff Gene PCR NEGATIVE (Negative)
[2022-07-15 14:11] LABS: Adenovirus F 40/41 Not Detected (Not Detect.); Astrovirus Not Detected (Not Detect.); Campylobacter Not Detected (Not Detect.); Cryptosporidium Not Detected (Not Detect.); Cyclospora cayetanensis Not Detected (Not Detect.); E. coli EAEC Not Detected (Not Detect.); E. coli EPEC Not Detected (Not Detect.); E. coli ETEC Not Detected (Not Detect.); E. coli STEC Not Detected (Not Detect.); Entamoeba histolytica Not Detected (Not Detect.); Giardia lamblia Not Detected (Not Detect.); Norovirus GI/GII Not Detected (Not Detect.); Plesiomonas shigelloides Not Detected (Not Detect.); Rotavirus A Not Detected (Not Detect.); Salmonella Not Detected (Not Detect.); Sapovirus Not Detected (Not Detect.); Shigella sp./EIEC Not Detected (Not Detect.); Vibrio Not Detected (Not Detect.); Vibrio Cholerae Not Detected (Not Detect.); Yersinia enterocolitica Not Detected (Not Detect.)
== END 2022-07-14 15:56 | disposition home or self-care (01) ==
PROVIDERS: Nurse Practitioner Family; Emergency Provider Emergency Medicine
DX: K91.850 Pouchitis (principal); R10.84 Generalized abdominal pain; K50.90 Crohn's disease, unspecified, without complications; Z79.899 Other long term (current) drug therapy
CPT/HCPCS: 36415; 74177; 80048; 80076; 83690; 85025; 85652; 86140; 87493; 87507; 96365; 96375; 96376; 99284; J1170; J2550; Q9967

== ENCOUNTER 2022-08-06 07:14 | Emergency (ER) | payer OTHER, SELFPAY ==
--- NOTE | ~2022-08-06 | CT_ITS ---
EXAMINATION: CT ABDOMEN AND PELVIS WITH CONTRAST CLINICAL INFORMATION: Right lower abdominal pain and history of ulcerative colitis COMPARISON: CT abdomen from 07/14/2022 TECHNIQUE: Multidetector volumetric images were obtained from the superior aspect of the liver through the pubic symphysis following administration 85 mL of Omnipaque 350 intravenous contrast. Sagittal and coronal reformatted images were obtained on the technologist's workstation. Oral contrast: No This CT examination was performed using dose optimization techniques as appropriate, variously including the following: *Automated exposure control *Adjustment of mA and/or kV according to patient size (this includes techniques or standardized protocols for targeted exams where dose is matched to indication/reason for exam; i.e. extremities or head) *Use of iterative reconstruction technique DLP: 518 mGy-cm FINDINGS: LUNG BASES: The visualized lung bases are unremarkable. LIVER, GALLBLADDER, AND BILIARY TREE: The liver is normal in size, shape, and attenuation. No focal hepatic lesion or biliary ductal dilatation is present. The gallbladder is surgically absent. PANCREAS: Unremarkable. SPLEEN: Unremarkable. ADRENAL GLANDS: Unremarkable. KIDNEYS AND URETERS: Echodense subcentimeter focus in the posterior aspect of the right renal interpolar) statistically representing cysts. Nonobstructive calculi in the right kidney the largest measuring 4 mm without hydronephrosis. Nonobstructive calculi in the left kidney the largest measuring up to 2 mm without hydronephrosis. BLADDER: Unremarkable. GASTROINTESTINAL TRACT: Stable anastomotic sutures along the sigmoid colon. Stable anastomotic sutures involving the right lower quadrant of the abdomen status post subtotal colectomy. Additional surgical material noted in the mid abdomen and left upper quadrant. The small and large bowel are unremarkable. ABDOMINAL WALL: Fat filled umbilical hernia. Fat filled right inguinal hernia. LYMPH NODES: No enlarged lymph nodes per size criteria. VASCULAR: Abdominal aorta is nonaneurysmal. PELVIC VISCERA: Prostate measures 4.0 cm. OSSEOUS STRUCTURES: Sclerotic foci involving the left femoral head and bilateral acetabulum statistically representing bone islands. CT/CT abdomen pelvis w IV con IMPRESSION: 1. No acute process of the abdomen or pelvis identified. 2. Bilateral nephrolithiasis without hydronephrosis. 3. Stable postsurgical changes of the bowel. 4. Status post cholecystectomy. 5. Fat filled umbilical hernia. Fat filled right inguinal hernia.
[2022-08-06 07:54] VITALS: BP 130/67; PULSE 82; RESP 16; TEMP 36.3; O2SAT 97; BMI 27.4
--- NOTE | 2022-08-06 08:24 | ED_ITS ---
HPI - Abdominal Pain General Chief Complaint: Nausea/Vomiting/Diarrhea Stated Complaint: pain all over Time Seen by Provider: 08/06/22 07:44 Source: patient History of Present Illness HPI narrative: 41-year-old male with known ulcerative colitis, on Humira, has a history of a J- pouch, presents with significant lower abdominal pain that is been associated with nausea and vomiting and small amounts of liquid stool but otherwise denies fever chills. Patient states that he was started on a course of antibiotics which he has completed but says that his pain has continued and he denies any associated urinary symptoms. Related Data Home Medications Medication Instructions Recorded Confirmed adalimumab 40 mg/0.4 mL 40 mg subcut TH@0900 08/19/21 06/11/22 subcutaneous pen kit (Humira(CF) Pen) clonazepam 1 mg tablet 1 tab PO BID PRN Anxiety 08/19/21 06/11/22 loratadine 10 mg tablet 1 tab PO DAILY PRN Allergy Symptoms 08/19/21 06/11/22 omeprazole 20 mg capsule,delayed 2 cap PO DAILY@0630 08/19/21 06/11/22 release zolpidem 10 mg tablet 1 tab PO BEDTIME 08/19/21 06/11/22 hydrocortisone 1 % topical cream 1 appl topical BID PRN Itching 09/18/21 06/11/22 multivitamin with folic acid 400 1 tab PO DAILY 06/11/22 06/11/22 mcg tablet (Daily-Davis (with folic acid)) Previous Rx's Medication Instructions Recorded tizanidine 4 mg tablet 6 mg PO BEDTIME PRN Muscle Spasm 03/25/22 30 days #135 tabs propranolol 10 mg tablet 10 mg PO BID 90 days #180 tabs 03/26/22 tramadol 50 mg tablet 50 mg PO BID PRN moderate pain 04/17/22 (scale score 5-6) #14 tabs topiramate 25 mg tablet 25 - 50 mg PO DAILY 30 days #60 06/03/22 tabs sumatriptan succinate 100 mg tablet 50 - 100 mg PO .COMPLEX PRN 06/14/22 migraine headache 30 days #12 tabs magnesium oxide 400 mg (241.3 mg 400 mg PO BEDTIME 30 days #30 tabs 07/03/22 magnesium) tablet metronidazole 500 mg tablet 500 mg PO BID 7 days #14 tabs 07/14/22 oxycodone 5 mg tablet 5 mg PO Q8H PRN pain #5 tabs 07/14/22 promethazine 25 mg tablet 25 mg PO Q6H PRN nausea and 07/14/22 vomiting #10 tabs Allergies Allergy/AdvReac Type Severity Reaction Status Date / Time ondansetron [Ondansetron] Allergy Mild HIVES Verified 06/03/22 13:18 Sulfa (Sulfonamide Allergy Mild UNKNOWN Verified 06/03/22 13:18 Antibiotics) ketorolac Allergy Unknown Unknown Verified 06/03/22 13:18 meperidine [Demerol] Allergy Unknown Unknown Verified 06/03/22 13:18 metoclopramide [Reglan] Allergy Unknown Unknown Verified 06/03/22 13:18 morphine [Morphine] Allergy Unknown RASH Verified 06/03/22 13:18 haloperidol [From Haldol] Allergy Anaphylaxis Verified 06/03/22 13:18 ketamine Allergy Unknown Verified 06/03/22 13:18 From REGLAN Allergy Mild PT UNSURE Uncoded 06/03/22 13:18 BUT STATES HE IS ALLERGIC Compro Allergy Unknown Unknown Uncoded 06/03/22 13:18 From COMPAZINE Allergy Unknown ITCHING Uncoded 06/03/22 13:18 From Demerol Allergy Unknown ITCHY HIVES Uncoded 06/03/22 13:18 From Toradol Allergy Unknown UNK Uncoded 06/03/22 13:18 Review of Systems Review of Systems Pertinent positives and negatives as stated in HPI [facility] Past Medical History Source: nursing notes reviewed Medical History Anxiety Cervicalgia Crohn's disease IBD (inflammatory bowel disease) Migraine Partial small bowel obstruction Surgical History History of colostomy reversal History of esophagogastroduodenoscopy (EGD) History of surgery on arm Hx of colonoscopy S/P colostomy Family History Family History Mother HTN (hypertension) Social History Social History Household Members: Spouse Housing: House Do you presently have visiting nurse or other home services: No Alcohol intake: unknown Patient Tobacco Use Status: Never used Tobacco Advance Directives: No service: No Current occupational status: disabled Physical Exam ED Vital Signs: Vital Signs - 24 hr 08/06/22 07:54 Temperature 97.4 F Pulse Rate 82 Respiratory Rate 16 Blood Pressure 130/67 Pulse Oximetry 97 Oxygen Delivery Method Room Air BMI result Body Mass Index 27.4 VITAL SIGNS: Reviewed. GENERAL: Well developed, well nourished, in no acute distress. HEAD: Normocephalic/atraumatic EYES: PERRLA, EOMI EARS: Ext canals without abnormality OROPHARYNX: no oral lesions noted, posterior pharynx clear LUNGS: Normal breath sounds. No adventitious sounds or accessory muscle use. SpO2<97> CARDIOVASCULAR: Regular rate and rhythm without noted murmurs, no JVD or lower extremity edema. ABDOMEN: Distended, tympanic, exquisitely tender on superficial palpation MUSCULOSKELETAL: No tenderness, deformities, or effusions noted on gross inspection. EXTREMITIES: No cyanosis, clubbing or edema. SKIN: Inspection of the skin reveals no rashes NEUROLOGIC: Alert and oriented x 4. Strength and sensation to light touch were grossly intact x 4. Medical Decision Making Medical Decision Making [facility] Narrative: 41-year-old male with history and clinical presentation suggestive of possible obstruction. Patient given IV fluids, pain medication and will receive CT scan of the abdomen pelvis. Have reviewed all investigations my interpretation is that patient is likely experiencing inflammatory changes there are not consistent with bowel obstruction or acute inflammatory changes to suggest an infectious etiology. Patient is improved after receiving medications here in the emergency room and he was discharged home in stable condition with instructions to follow-up with his geospatial technologist. Differential Diagnosis Differential Diagnoses: The differential diagnosis associated with the presentation includes Please see the discussion above Consult Healthcare Provider [id number]: I discussed case with Dr. Figueroa who recommends symptomatic treatment if patient does not seem to be having a flare. I discussed this with the patient. Lab Data [facility] Lab Attestation statement: I reviewed the patient's lab results. Please see the discussion above 08/06/22 08:23 08/06/22 08:23 Labs: Lab Results 08/06/22 08/06/22 08/06/22 Range/Units 08:23 08:23 08:23 WBC 5.6 (4.8-10.8) X10*3/uL RBC 4.70 (4.60-5.80) X10*6/uL Hgb 14.9 (14.0-18.0) g/dl Hct 42.0 (42.0-52.0) % MCV 89.4 (80.0-98.0) fL MCH 31.7 (27.0-33.0) pg MCHC 35.5 (31.0-36.0) g/dl RDW 12.4 (11.0-16.0) % Plt Count 145 L (160-400) X10*3/uL MPV 10.7 (9.4-12.4) fL Immature Gran % (Auto) 0.2 (0.0-0.4) % Neut % (Auto) 59.5 (45-73) % Lymph % (Auto) 30.9 (20-40) % Lassen % (Auto) 7.9 (2-11) % Eos % (Auto) 1.1 (0-4) % Baso % (Auto) 0.4 (0-2) % Lymph # (Auto) 1.7 (1.2-4.9) X10*3/uL Lassen # (Auto) 0.4 (0.1-1.2) X10*3/uL Eos # (Auto) 0.1 (0.0-0.4) X10*3/uL Baso # (Auto) 0.0 (0.0-0.2) X10*3/uL Abs Immat Gran (auto) 0.01 (0.00-0.03) X10*3/uL Absolute Neuts (auto) 3.3 (2.0-8.3) x10*3/uL Absolute Nucleated RBC 0.000 (0.0-0.012) X10*3/uL Nucleated RBC % (auto) 0.0 (0.0-0.2) /100WBC PT (10.0-13.1) SEC INR (0.9-1.1) Sodium (135-145) mmol/L Potassium (3.3-5.1) mmol/L Chloride (96-108) mmol/L Carbon Dioxide (22-29) mmol/L Anion Gap (12-20) BUN (9-16) mg/dL Creatinine (0.5-1.4) mg/dL Estim Creat Clear Calc Estimated GFR Random Glucose (60-115) mg/dL Calcium (8.4-10.2) mg/dL Total Bilirubin (0.0-1.0) mg/dL AST (5-37) U/L ALT (0-40) U/L Alkaline Phosphatase (39-117) U/L Total Protein (6.5-8.0) g/dL Albumin (3.5-5.0) g/dL COVID-19 (LONG) Negative (Negative) COVID-19 Clin Com See Note Influenza Type A (MARTÍN) Negative (Negative) Influenza Type B (MARTÍN) Negative (Negative) Influenza A & B Note See Note 08/06/22 08/06/22 Range/Units 08:23 08:23 WBC (4.8-10.8) X10*3/uL RBC (4.60-5.80) X10*6/uL Hgb (14.0-18.0) g/dl Hct (42.0-52.0) % MCV (80.0-98.0) fL MCH (27.0-33.0) pg MCHC (31.0-36.0) g/dl RDW (11.0-16.0) % Plt Count (160-400) X10*3/uL MPV (9.4-12.4) fL Immature Gran % (Auto) (0.0-0.4) % Neut % (Auto) (45-73) % Lymph % (Auto) (20-40) % Lassen % (Auto) (2-11) % Eos % (Auto) (0-4) % Baso % (Auto) (0-2) % Lymph # (Auto) (1.2-4.9) X10*3/uL Lassen # (Auto) (0.1-1.2) X10*3/uL Eos # (Auto) (0.0-0.4) X10*3/uL Baso # (Auto) (0.0-0.2) X10*3/uL Abs Immat Gran (auto) (0.00-0.03) X10*3/uL Absolute Neuts (auto) (2.0-8.3) x10*3/uL Absolute Nucleated RBC (0.0-0.012) X10*3/uL Nucleated RBC % (auto) (0.0-0.2) /100WBC PT 11.6 (10.0-13.1) SEC INR 1.0 (0.9-1.1) Sodium 141 (135-145) mmol/L Potassium 4.0 (3.3-5.1) mmol/L Chloride 105 (96-108) mmol/L Carbon Dioxide 29 (22-29) mmol/L Anion Gap 11 L (12-20) BUN 11 (9-16) mg/dL Creatinine 0.77 (0.5-1.4) mg/dL Estim Creat Clear Calc 116.9 Estimated GFR > 60 Random Glucose 89 (60-115) mg/dL Calcium 9.9 (8.4-10.2) mg/dL Total Bilirubin 1.3 H (0.0-1.0) mg/dL AST 27 (5-37) U/L ALT 35 (0-40) U/L Alkaline Phosphatase 66 (39-117) U/L Total Protein 7.4 (6.5-8.0) g/dL Albumin 4.2 (3.5-5.0) g/dL COVID-19 (LONG) (Negative) COVID-19 Clin Com Influenza Type A (MARTÍN) (Negative) Influenza Type B (MARTÍN) (Negative) Influenza A & B Note Radiology Impression Radiologist Impression: My interpretation is in agreement with radiologist impression of the imaging study. External Record Review External record reviewed: Inpatient record, Outpatient record and Prior outpatient labs Medications Administered Discontinued Medications Generic Name Dose Route Start Last Admin Trade Name Freq PRN Reason Stop Dose Admin Diphenhydramine HCl 25 mg 08/06/22 08:24 08/06/22 08:45 Diphenhydramine Hcl 50 Mg/Ml Vial IVPUSH 08/06/22 08:25 25 mg ONCE ONE Administration Fentanyl 25 mcg 08/06/22 08:24 08/06/22 08:44 Fentanyl Citrate/Pf 100 Mcg/2 Ml Vial IVPUSH 08/06/22 08:25 25 mcg ONCE ONE Administration Protocol Sodium Chloride 1,000 mls @ 999 mls/hr 08/06/22 08:30 08/06/22 09:51 Ns IV 08/06/22 09:30 Infused .Q1H1M DULCE MARIA Infusion Iohexol 100 ml 08/06/22 09:35 08/06/22 09:36 Iohexol 350 Mg/Ml 100 Ml Infus..Btl IV 08/06/22 09:36 85 ml ONCE ONE Administration Discharge Plan Discharge Clinical Impression: Abdominal discomfort Patient Disposition: Home, Self-Care Instructions: Abdominal Pain (ED) Additional Instructions: 1. Reanudar todos los medicamentos caseros seg?n lo prescrito. 2. Contin?e bebiendo haim agua y use Tylenol/ibuprofeno de venta freddie seg?n sea necesario para el malestar. 3. Realice un seguimiento con sexton m?dico GI, gastroenter?logo dentro de los pr?ximos 1 a 2 d?as para rio reevaluaci?n adicional del manejo ambulatorio. No dude en regresar a la ramón de emergencias si presenta un empeoramiento shaquille de n?useas, v?mitos, fiebre o escalofr?os. 1. Resume all home medications as prescribed. 2. Continue to drink plenty of water and use [id number] Tylenol/ibuprofen as needed for discomfort. 3. Please follow-up with your GI doctor, geospatial technologist within the next 1-2 days for re-evaluation further outpatient management. Please do not hesitate to return to the emergency room should you develop acute worsening of nausea, vomiting, fever or chills. Prescriptions: No Action tizanidine 4 mg tablet 6 mg PO BEDTIME PRN (Reason: Muscle Spasm) 30 Days Qty: 135 3RF propranolol 10 mg tablet 10 mg PO BID 90 Days Qty: 180 1RF magnesium oxide 400 mg (241.3 mg magnesium) tablet 400 mg PO BEDTIME 30 Days Qty: 30 6RF Rx Instructions: may hold for loose stools hydrocortisone 1 % cream 1 appl topical BID PRN (Reason: Itching) tramadol 50 mg tablet 50 mg PO BID PRN (Reason: moderate pain (scale score 5-6)) Qty: 14 0RF promethazine 25 mg tablet 25 mg PO Q6H PRN (Reason: nausea and vomiting) Qty: 10 0RF metronidazole 500 mg tablet 500 mg PO BID 7 Days Qty: 14 0RF oxycodone 5 mg tablet 5 mg PO Q8H PRN (Reason: pain) Qty: 5 0RF Rx Instructions: Partial Fill upon patient request. clonazepam 1 mg tablet 1 tab PO BID PRN (Reason: Anxiety) omeprazole 20 mg capsule,delayed release(DR/EC) 2 cap PO DAILY@0630 zolpidem 10 mg tablet 1 tab PO BEDTIME loratadine 10 mg tablet 1 tab PO DAILY PRN (Reason: Allergy Symptoms) Humira(CF) Pen 40 mg/0.4 mL pen injector kit 40 mg subcut TH@0900 multivitamin with folic acid [Daily-Davis (with folic acid)] 400 mcg tablet 1 tab PO DAILY topiramate 25 mg tablet 25 - 50 mg PO DAILY 30 Days Qty: 60 3RF sumatriptan succinate 100 mg tablet 50 - 100 mg PO .COMPLEX PRN (Reason: migraine headache) 30 Days Qty: 12 6RF Rx Instructions: 50 - 100 mg orally at onset of headache, may repeat in 2 hrs PRN; max 2 tabs per day or 4 tabs/week (may take with Ibuprofen) Referrals: [facility] [Primary Care Provider] - Sharon Figueroa MD [Physician] - Print Language: Upper Sorbian
[2022-08-06 08:28] LABS: MANUAL DIFF FLAG NO
[2022-08-06 08:33] LABS: Basophils Percent Auto 0.4 % (0-2); Eosinophils Absolute Auto 0.1 X10*3/uL (0.0-0.4); Eosinophils Percent Auto 1.1 % (0-4); Hemoglobin 14.9 g/dl (14.0-18.0); Imm Gran Abs Auto 0.01 X10*3/uL (0.00-0.03); Imm Gran Pct Auto 0.2 % (0.0-0.4); Lymphocytes Absolute Auto 1.7 X10*3/uL (1.2-4.9); Lymphocytes Percent Auto 30.9 % (20-40); Mean Corpuscular HGB Conc 35.5 g/dl (31.0-36.0); Mean Corpuscular Hemoglobin 31.7 pg (27.0-33.0); Mean Corpuscular Volume 89.4 fL (80.0-98.0); Mean Platelet Volume 10.7 fL (9.4-12.4); Monocytes Absolute Auto 0.4 X10*3/uL (0.1-1.2); Monocytes Percent Auto 7.9 % (2-11); Neutrophils Absolute Auto 3.3 x10*3/uL (2.0-8.3); Neutrophils Percent Auto 59.5 % (45-73); Platelet Count 145 X10*3/uL (160-400); Red Cell Distribution Width 12.4 % (11.0-16.0); White Blood Count 5.6 X10*3/uL (4.8-10.8)
[2022-08-06] MEDS: 0.9 % Sodium Chloride 1,000 ML 999 ML IV (08:38)
[2022-08-06 08:43] LABS: COVID-19 Test Negative (Negative); IDNOW Serial# 16C4AD1C
[2022-08-06] MEDS: fentaNYL citrate/PF 100 MCG/2 ML VIAL 25 MCG IVPUSH (08:44)
[2022-08-06 08:45] LABS: IDNOW Serial# BCCEAD1C; Influenza A Negative (Negative); Influenza B2 Negative (Negative); Prothrombin Time 11.6 SEC (10.0-13.1)
[2022-08-06] MEDS: diphenhydrAMINE HCL 50 MG/ML VIAL 25 MG IVPUSH (08:45)
[2022-08-06 08:54] LABS: Alanine Aminotransferase 35 U/L (0-40); Albumin Level 4.2 g/dL (3.5-5.0); Alkaline Phosphatase 66 U/L (39-117); Anion Gap 11 (12-20); Aspartate Amino Transferase 27 U/L (5-37); Bilirubin Total 1.3 mg/dL (0.0-1.0); Blood Urea Nitrogen 11 mg/dL (9-16); Calcium 9.9 mg/dL (8.4-10.2); Carbon Dioxide 29 mmol/L (22-29); Chloride 105 mmol/L (96-108); Creatinine Clr Calc Pharmacy 116.9; Estimated Glomerular Filt Rate > 60; Glucose Random 89 mg/dL (60-115); Sodium 141 mmol/L (135-145); Total Protein 7.4 g/dL (6.5-8.0)
[2022-08-06] MEDS: iohexoL 350 MG/ML 100 ML INFUS..BTL IV (09:36)
== END 2022-08-06 11:44 | disposition home or self-care (01) ==
PROVIDERS: Emergency Provider Student in an Organized Health Care Education/Training Program
DX: R11.2 Nausea with vomiting, unspecified (principal); R10.13 Epigastric pain; Z20.822 Contact with and (suspected) exposure to COVID-19; Z20.828 Contact with and (suspected) exposure to other viral communicable diseases; Z79.899 Other long term (current) drug therapy
CPT/HCPCS: 36415; 74177; 80053; 85025; 85610; 87502; 87635; 96361; 96374; 96375; 99284; J1200; J3010; Q9967

== ENCOUNTER 2022-09-28 07:37 | Emergency (ER) | payer OTHER, SELFPAY ==
--- NOTE | ~2022-09-28 | CT_ITS ---
EXAMINATION: CT ABDOMEN AND PELVIS WITH CONTRAST CLINICAL INFORMATION: Crohn's disease and small bowel obstruction. COMPARISON: CT abdomen pelvis 08/06/2022 TECHNIQUE: Multidetector volumetric images were obtained from the superior aspect of the liver through the pubic symphysis following administration 85 mL of Omnipaque 350 intravenous contrast. Sagittal and coronal reformatted images were obtained on the technologist's workstation. Oral contrast: No This CT examination was performed using dose optimization techniques as appropriate, variously including the following: *Automated exposure control *Adjustment of mA and/or kV according to patient size (this includes techniques or standardized protocols for targeted exams where dose is matched to indication/reason for exam; i.e. extremities or head) *Use of iterative reconstruction technique DLP: 500 mGy-cm FINDINGS: LUNG BASES: The lung bases are clear. Heart size is normal. LIVER, GALLBLADDER, AND BILIARY TREE: The liver is normal in size, shape, and attenuation. No focal hepatic lesion or biliary ductal dilatation is present. The gallbladder has been surgically removed.. PANCREAS: Unremarkable. SPLEEN: Unremarkable. ADRENAL GLANDS: Unremarkable. KIDNEYS AND URETERS: The kidneys are normal in size, shape, and attenuation. No hydronephrosis, hydroureter, or calculi seen. No perinephric stranding. BLADDER: Unremarkable. GASTROINTESTINAL TRACT: There is scattered stool and gas seen throughout the colon without distention. There are annular suture in the rectosigmoid region with widely patent lumen. Postsurgical changes also seen in the right ileocecal junction. Appendix is not visualized. No free air or free fluid seen. ABDOMINAL WALL: No significant hernia is appreciated. LYMPH NODES: Normal. VASCULAR: Unremarkable. PELVIC VISCERA: No free air or free fluid seen. There is no adnexal mass or adenopathy. OSSEOUS STRUCTURES: No aggressive lytic or sclerotic process seen. CT/CT abdomen pelvis w IV con IMPRESSION: No acute intracranial process seen.. There are postsurgical changes in the right lower quadrant and the pelvis there is a widely patent lumen. Moderate constipation. No obstruction. Fleischner guidelines were followed.
--- NOTE | ~2022-09-28 | XR_ITS ---
EXAMINATION: XR CHEST CLINICAL INFORMATION: Pain, history of Crohn's disease. COMPARISON: Chest radiograph dated 02/06/2015. TECHNIQUE: Frontal view of the chest was obtained. FINDINGS: No significant abnormality is noted involving the heart, lungs, mediastinum, bony thorax or soft tissues. XR/XR chest 1V IMPRESSION: No acute cardiopulmonary process.
[2022-09-28 07:41] VITALS: BP 131/80; PULSE 93; RESP 18; TEMP 36.1; O2SAT 98; BMI 26.6
--- NOTE | 2022-09-28 08:33 | ED.ABDPAIN ---
HPI - Abdominal Pain General Chief Complaint: Abdominal Pain Stated Complaint: chrome disease, abd pain, vomiting Time Seen by Provider: 09/28/22 08:11 Source: patient Mode of arrival: ambulatory Limitations: no limitations History of Present Illness HPI narrative: Patient is a 41-year-old male with a history ulcerative colitis and Crohn's disease with most of large bowel removed back in 2006 cc abdominal pain since yesterday at noon. He states he has had this several times in the past with history of small-bowel obstruction. 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 he took tramadol for pain and around 04:00 started vomiting greenish liquid and took Phenergan. He has also had diarrhea with bright red blood. He describes the pain to be starting in low back on the right radiating to the front and then spreading diffusely throughout the abdomen. Nothing has helped with his pain today or the vomiting. He has Humira injections every . He denies fevers, chills, night sweats, chest pain, sob, extremity pain or swelling. MD elicited complaint: abdominal pain and flank pain Pertinent past history: other (see hpi) Onset (ago): hour(s) (21 ) Pain Consistency: constant Location: diffuse, RLQ and R flank Severity: moderate Pain scale (0-10): 9 Quality: cramping, fullness, sharp and burning Radiation: none Migration to: no migration Exacerbating factors: nothing Relieving factors: other (certain positions help alleviate some discomfort) Context: history of similar episodes Associated symptoms: nausea, vomiting, diarrhea and hematochezia Treatments prior to arrival: prescription analgesics (Tramadol, has oxycodone at home as well but denies taking it) Related Data Home Medications Medication Instructions Recorded Confirmed adalimumab 40 mg/0.4 mL 40 mg subcut TH@0900 08/19/21 06/11/22 subcutaneous pen kit (Humira(CF) Pen) clonazepam 1 mg tablet 1 tab PO BID PRN Anxiety 08/19/21 06/11/22 loratadine 10 mg tablet 1 tab PO DAILY PRN Allergy Symptoms 08/19/21 06/11/22 omeprazole 20 mg capsule,delayed 2 cap PO DAILY@0630 08/19/21 06/11/22 release zolpidem 10 mg tablet 1 tab PO BEDTIME 08/19/21 06/11/22 hydrocortisone 1 % topical cream 1 appl topical BID PRN Itching 09/18/21 06/11/22 multivitamin with folic acid 400 1 tab PO DAILY 06/11/22 06/11/22 mcg tablet (Daily-Davis (with folic acid)) Previous Rx's Medication Instructions Recorded tizanidine 4 mg tablet 6 mg PO BEDTIME PRN Muscle Spasm 03/25/22 30 days #135 tabs propranolol 10 mg tablet 10 mg PO BID 90 days #180 tabs 03/26/22 tramadol 50 mg tablet 50 mg PO BID PRN moderate pain 04/17/22 (scale score 5-6) #14 tabs sumatriptan succinate 100 mg tablet 50 - 100 mg PO .COMPLEX PRN 06/14/22 migraine headache 30 days #12 tabs magnesium oxide 400 mg (241.3 mg 400 mg PO BEDTIME 30 days #30 tabs 07/03/22 magnesium) tablet metronidazole 500 mg tablet 500 mg PO BID 7 days #14 tabs 07/14/22 oxycodone 5 mg tablet 5 mg PO Q8H PRN pain #5 tabs 07/14/22 promethazine 25 mg tablet 25 mg PO Q6H PRN nausea and 07/14/22 vomiting #10 tabs topiramate 25 mg tablet 25 - 50 mg PO DAILY 30 days #60 09/14/22 tabs docusate sodium 100 mg capsule 100 mg PO BID PRN Constipation #14 09/28/22 (Colace) caps polyethylene glycol 3350 17 17 g PO DAILY #119 grams 09/28/22 gram/dose oral powder (Miralax) Allergies Allergy/AdvReac Type Severity Reaction Status Date / Time ondansetron [Ondansetron] Allergy Mild HIVES Verified 06/03/22 13:18 Sulfa (Sulfonamide Allergy Mild UNKNOWN Verified 06/03/22 13:18 Antibiotics) ketorolac Allergy Unknown Unknown Verified 06/03/22 13:18 meperidine [Demerol] Allergy Unknown Unknown Verified 06/03/22 13:18 metoclopramide [Reglan] Allergy Unknown Unknown Verified 06/03/22 13:18 morphine [Morphine] Allergy Unknown RASH Verified 06/03/22 13:18 haloperidol [From Haldol] Allergy Anaphylaxis Verified 06/03/22 13:18 ketamine Allergy Unknown Verified 06/03/22 13:18 From REGLAN Allergy Mild PT UNSURE Uncoded 06/03/22 13:18 BUT STATES HE IS ALLERGIC Compro Allergy Unknown Unknown Uncoded 06/03/22 13:18 From COMPAZINE Allergy Unknown ITCHING Uncoded 06/03/22 13:18 From Demerol Allergy Unknown ITCHY HIVES Uncoded 06/03/22 13:18 From Toradol Allergy Unknown UNK Uncoded 06/03/22 13:18 Review of Systems Review of Systems Constitutional : No Weight loss, No Fever, No Chills, No Night Sweats, No Fatigue, No Malaise ENT/Mouth : No Hearing loss, No Ear Pain, No Nasal Congestion, No Sinus Pain, No Hoarseness, No sore throat, No Rhinorrhea, No Swallowing Difficulty Eyes: No Eye Pain, No Swelling, No Redness, No Foreign Body, No Discharge, No Vision Changes Cardiovascular : No Chest Pain, No SOB, No Dyspnea on Exertion, No Orthopnea, No Edema, No Palpitations Respiratory : No Cough, No Sputum, No Wheezing, No Smoke Exposure, No Dyspnea Gastrointestinal : + Nausea, + Vomiting, + Diarrhea with bright red blood, +abdominal Pain Genitourinary : no irregular bleeding, No Dysuria, No Urinary Frequency, No Hematuria, No Urinary Incontinence, No Urgency, +R Flank Pain, No Urinary Flow Changes, No Hesitancy Musculoskeletal : No joint pain, No Myalgias, No Joint Swelling Skin : No Skin Lesions, No rash Neuro : No Weakness, No Numbness, No Paresthesias, No Loss of Consciousness, No Dizziness, No Headache Psych : No Anxiety/Panic, No Depression, No SI/HI/AH/VH, No Social Issues, Heme/Lymph: No Bruising, No Bleeding,No Lymphadenopathy Endocrine : No Polyuria, No Polydipsia, No Temperature Intolerance Yes all other systems are reviewed and are negative [facility] Past Medical History Attestation statement: The following information was validated with the patient. Source: old records reviewed and nursing notes reviewed Medical History Anxiety Cervicalgia Crohn's disease IBD (inflammatory bowel disease) Migraine Partial small bowel obstruction Surgical History History of colostomy reversal History of esophagogastroduodenoscopy (EGD) History of surgery on arm Hx of colonoscopy S/P colostomy Family History Family History Mother HTN (hypertension) Social History Social History Household Members: Spouse Housing: House Do you presently have visiting nurse or other home services: No Alcohol intake: never Patient Tobacco Use Status: Never used Tobacco Smoked in Last 30 Days: No Use of substances other than those prescribed or required for medical reasons: No Advance Directives: No Advance Directives Information Provided: No service: No Current occupational status: disabled Physical Exam ED Vital Signs: Vital Signs - 24 hr 09/28/22 07:41 09/28/22 10:00 09/28/22 11:52 Temperature 97 F 98.0 F Pulse Rate 93 66 84 Respiratory Rate 18 13 17 Blood Pressure 131/80 114/78 112/80 Pulse Oximetry 98 97 98 Oxygen Delivery Method Room Air Room Air Room Air BMI result Body Mass Index 26.6 Vital signs have been reviewed and all within normal limits Appearance: Alert. Oriented X3. No acute distress. Head: Normal external exam. Normocephalic. Eyes: PERRLA. EOMI. Conjunctiva and sclera normal. Eyelids normal. ENT: Pharynx normal. Uvula midline. Moist mucous membranes. No trismus noted. No drooling noted. No muffled voice noted. Neck: Normal inspection. Neck supple. FROM. No adenopathy. No meningeal signs. CVS: Normal heart rate and rhythm. Heart sound normal. No murmurs noted. Pulses normal throughout. Respiratory: No respiratory distress. Painless inspiration. Breath sounds normal. No wheezes/rales/rhonchi noted. Chest nontender. No accessory muscle usage noted or decreased air movement noted. Abdomen: +distention, +rigidity, +diffuse tenderness. Bowel sounds normal in all 4 quadrants. +Surgical scars. No visible injury noted. Back: No CVA tenderness. Full range of motion noted. Skin: Skin warm and dry. Normal skin color. Normal skin turgor. No rashes/lesions/lacerations noted. Extremities: Extremities exhibit normal range of motion. Extremities nontender. Neuro: Oriented X 3. No motor deficit. No sensory deficit. Reflexes normal. Normal steady gait. CN's II-XII intact bilaterally? Medical Decision Making Medical Decision Making [facility] Narrative: 8:25am Differential diagnosis includes small bowel obstruction and Crohn's exacerbation. We are also considering mesenteric ischemia, bowel gangrene, abscess and peritonitis but patient is afebrile and WBCs are WNL. Some other less likely causes to be considered are aortic aneuysm, pancreatitis, or renal colic. Pt has had [address] scans in the past year and the risks were discussed this with him in detail before obtaining another. He expressed he was aware and has discussed it with his GI doctor but have not been able to agree on alternatives at this time. Plan: labs, abd CT, pain control, antiemetics, IV fluids, serial reassessment Lab Data [facility] Lab Attestation statement: I reviewed the patient's lab results. 09/28/22 08:36 09/28/22 08:37 Labs: Lab Results 09/28/22 09/28/22 09/28/22 Range/Units 08:36 08:36 08:37 WBC 6.3 (4.8-10.8) X10*3/uL RBC 4.56 L (4.60-5.80) X10*6/uL Hgb 14.4 (14.0-18.0) g/dl Hct 41.7 L (42.0-52.0) % MCV 91.4 (80.0-98.0) fL MCH 31.6 (27.0-33.0) pg MCHC 34.5 (31.0-36.0) g/dl RDW 12.3 (11.0-16.0) % Plt Count 186 D (160-400) X10*3/uL MPV 10.3 (9.4-12.4) fL Immature Gran % (Auto) 0.3 (0.0-0.4) % Neut % (Auto) 63.3 (45-73) % Lymph % (Auto) 27.4 (20-40) % [place] % (Auto) 7.5 (2-11) % Eos % (Auto) 1.0 (0-4) % Baso % (Auto) 0.5 (0-2) % Lymph # (Auto) 1.7 (1.2-4.9) X10*3/uL [place] # (Auto) 0.5 (0.1-1.2) X10*3/uL Eos # (Auto) 0.1 (0.0-0.4) X10*3/uL Baso # (Auto) 0.0 (0.0-0.2) X10*3/uL Abs Immat Gran (auto) 0.02 (0.00-0.03) X10*3/uL Absolute Neuts (auto) 4.0 (2.0-8.3) x10*3/uL Absolute Nucleated RBC 0.000 (0.0-0.012) X10*3/uL Nucleated RBC % (auto) 0.0 (0.0-0.2) /100WBC PT 12.1 (10.0-13.1) SEC INR 1.1 (0.9-1.1) Sodium 138 (135-145) mmol/L Potassium 4.2 (3.3-5.1) mmol/L Chloride 104 (96-108) mmol/L Carbon Dioxide 27 (22-29) mmol/L Anion Gap 11 L (12-20) BUN 16 (9-16) mg/dL Creatinine 0.76 (0.5-1.4) mg/dL Estim Creat Clear Calc 109.0 Estimated GFR > 60 Random Glucose 92 (60-115) mg/dL Calcium 9.4 (8.4-10.2) mg/dL Magnesium 2.0 (1.6-2.6) mg/dL Total Bilirubin 1.0 (0.0-1.0) mg/dL AST 26 (5-37) U/L ALT 47 H (0-40) U/L Alkaline Phosphatase 75 (39-117) U/L Total Protein 7.4 (6.5-8.0) g/dL Albumin 4.2 (3.5-5.0) g/dL Lipase 25 (8-78) U/L Urine Color Urine Appearance Urine pH (5.0-9.0) Ur Specific [place] (1.005-1.025) Urine Protein (Neg-Trace) mg/dL Urine Glucose (UA) (Negative) mg/dL Urine Ketones (Negative) mg/dL Urine Blood (Negative) Urine Nitrite (Negative) Ur Leukocyte Esterase (Negative) Influenza Type A (PCR) (Negative) Influenza Type B (PCR) (Negative) RSV RNA Qual (PCR) (Negative) SARS-CoV-2 RNA (RT-PCR) (Negative) 09/28/22 09/28/22 Range/Units 08:37 10:16 WBC (4.8-10.8) X10*3/uL RBC (4.60-5.80) X10*6/uL Hgb (14.0-18.0) g/dl Hct (42.0-52.0) % MCV (80.0-98.0) fL MCH (27.0-33.0) pg MCHC (31.0-36.0) g/dl RDW (11.0-16.0) % Plt Count (160-400) X10*3/uL MPV (9.4-12.4) fL Immature Gran % (Auto) (0.0-0.4) % Neut % (Auto) (45-73) % Lymph % (Auto) (20-40) % [place] % (Auto) (2-11) % Eos % (Auto) (0-4) % Baso % (Auto) (0-2) % Lymph # (Auto) (1.2-4.9) X10*3/uL [place] # (Auto) (0.1-1.2) X10*3/uL Eos # (Auto) (0.0-0.4) X10*3/uL Baso # (Auto) (0.0-0.2) X10*3/uL Abs Immat Gran (auto) (0.00-0.03) X10*3/uL Absolute Neuts (auto) (2.0-8.3) x10*3/uL Absolute Nucleated RBC (0.0-0.012) X10*3/uL Nucleated RBC % (auto) (0.0-0.2) /100WBC PT (10.0-13.1) SEC INR (0.9-1.1) Sodium (135-145) mmol/L Potassium (3.3-5.1) mmol/L Chloride (96-108) mmol/L Carbon Dioxide (22-29) mmol/L Anion Gap (12-20) BUN (9-16) mg/dL Creatinine (0.5-1.4) mg/dL Estim Creat Clear Calc Estimated GFR Random Glucose (60-115) mg/dL Calcium (8.4-10.2) mg/dL Magnesium (1.6-2.6) mg/dL Total Bilirubin (0.0-1.0) mg/dL AST (5-37) U/L ALT (0-40) U/L Alkaline Phosphatase (39-117) U/L Total Protein (6.5-8.0) g/dL Albumin (3.5-5.0) g/dL Lipase (8-78) U/L Urine Color Yellow Urine Appearance Clear Urine pH 7.0 (5.0-9.0) Ur Specific [place] 1.025 (1.005-1.025) Urine Protein Negative (Neg-Trace) mg/dL Urine Glucose (UA) Negative (Negative) mg/dL Urine Ketones Negative (Negative) mg/dL Urine Blood Negative (Negative) Urine Nitrite Negative (Negative) Ur Leukocyte Esterase Negative (Negative) Influenza Type A (PCR) NEGATIVE (Negative) Influenza Type B (PCR) NEGATIVE (Negative) RSV RNA Qual (PCR) NEGATIVE (Negative) SARS-CoV-2 RNA (RT-PCR) NEGATIVE (Negative) Independent Interpretation I performed an independent interpretation of an: Plain X-Ray (Chest x-ray reviewed by myself and agreeable radiologist reports CT scan abdomen pelvis IV contrast reviewed by myself agree with radiologist's report) and CT Scan (CT scan with IV consult reviewed by myself agreeable radiologist report) Radiology Impression Discussion of test interpretation with radiology: I have reviewed the radiologist's reading. Radiologist Impression: FINDINGS: No significant abnormality is noted involving the heart, lungs, mediastinum, bony thorax or soft tissues. XR/XR chest 1V IMPRESSION: No acute cardiopulmonary process. FINDINGS: LUNG BASES: The lung bases are clear. Heart size is normal. LIVER, GALLBLADDER, AND BILIARY TREE: The liver is normal in size, shape, and attenuation. No focal hepatic lesion or biliary ductal dilatation is present. The gallbladder has been surgically removed..? PANCREAS: Unremarkable.? SPLEEN: Unremarkable.? ADRENAL GLANDS: Unremarkable.? KIDNEYS AND URETERS: The kidneys are normal in size, shape, and attenuation. No hydronephrosis, hydroureter, or calculi seen. No perinephric stranding. ? BLADDER: Unremarkable.? GASTROINTESTINAL TRACT: There is scattered stool and gas seen throughout the colon without distention. There are annular suture in the rectosigmoid region with widely patent lumen. Postsurgical changes also seen in the right ileocecal junction. Appendix is not visualized. No free air or free fluid seen. ABDOMINAL WALL: No significant hernia is appreciated.? LYMPH NODES: Normal. VASCULAR: Unremarkable. PELVIC VISCERA: No free air or free fluid seen. There is no adnexal mass or adenopathy.? OSSEOUS STRUCTURES: No aggressive lytic or sclerotic process seen.? CT/CT abdomen pelvis w IV con IMPRESSION: No acute intracranial process seen.. There are postsurgical changes in the right lower quadrant and the pelvis there is a widely patent lumen. ? Moderate constipation. No obstruction. ? Fleischner guidelines were followed. External Record Review External record reviewed: Inpatient record, Office record, Outpatient record, Prior outpatient labs, Prior outpatient radiology, Primary care record and Outside ED record I reviewed all the patient's labs, imaging, EKGs, notes that are accessible in our system Prescription Management Patient will be sent home with Colace and MiraLax no pain medications as this can worsening his constipation and lead to a bowel obstruction no bowel obstruction at this time. Chronic Conditions Patient?s care impacted by: Other (Ulcerative colitis and Crohn's disease with history of bowel resection and multiple small bowel obstructions/abdominal surgery) Medications Administered Generic Name Dose Route Start Last Admin Trade Name Freq PRN Reason Stop Dose Admin Sodium Chloride 1,000 mls @ 999 mls/hr 09/28/22 11:30 09/28/22 11:49 Ns IVCONT 09/28/22 12:30 999 mls/hr .Q1H1M DULCE MARIA Administration Discontinued Medications Generic Name Dose Route Start Last Admin Trade Name Freq PRN Reason Stop Dose Admin Hydromorphone HCl 0.5 mg 09/28/22 08:28 09/28/22 08:42 Hydromorphone Hcl 0.5 Mg/0.5 Ml Syringe IVPUSH 09/28/22 08:29 0.5 mg ONCE ONE Administration Protocol Hydromorphone HCl 1 mg 09/28/22 09:33 09/28/22 09:43 Hydromorphone Hcl 1 Mg/Ml Syringe IVPUSH 09/28/22 09:34 1 mg ONCE ONE Administration Protocol Hydromorphone HCl 1 mg 09/28/22 11:26 09/28/22 11:49 Hydromorphone Hcl 1 Mg/Ml Syringe IVPUSH 09/28/22 11:27 1 mg ONCE ONE Administration Protocol Sodium Chloride 1,000 mls @ 999 mls/hr 09/28/22 08:30 09/28/22 11:47 Ns IVCONT 09/28/22 09:30 Infused .Q1H1M DULCE MARIA Infusion Promethazine HCl 12.5 mg/ 50.5 mls @ 202 mls/hr 09/28/22 08:33 09/28/22 09:26 Sodium Chloride IV 09/28/22 08:34 Infused ONCE ONE Infusion Iohexol 85 ml 09/28/22 09:09 09/28/22 09:10 Iohexol 350 Mg/Ml 100 Ml Infus..Btl IV 09/28/22 09:10 85 ml ONCE ONE Administration Critical Care Time Critical Care Time Critical Care Time: Yes Total Critical Care Time: 60 Attestation: I personally attest to this time spent taking care of the patient Discharge Plan Discharge Clinical Impression: Constipation Patient Disposition: Home, Self-Care Instructions: Constipation (ED) Prescriptions: New docusate sodium [Colace] 100 mg capsule 100 mg PO BID PRN (Reason: Constipation) Qty: 14 0RF polyethylene glycol 3350 [Miralax] 17 gram/dose powder 17 g PO DAILY Qty: 119 0RF No Action tizanidine 4 mg tablet 6 mg PO BEDTIME PRN (Reason: Muscle Spasm) 30 Days Qty: 135 3RF propranolol 10 mg tablet 10 mg PO BID 90 Days Qty: 180 1RF magnesium oxide 400 mg (241.3 mg magnesium) tablet 400 mg PO BEDTIME 30 Days Qty: 30 6RF Rx Instructions: may hold for loose stools topiramate 25 mg tablet 25 - 50 mg PO DAILY 30 Days Qty: 60 6RF hydrocortisone 1 % cream 1 appl topical BID PRN (Reason: Itching) tramadol 50 mg tablet 50 mg PO BID PRN (Reason: moderate pain (scale score 5-6)) Qty: 14 0RF promethazine 25 mg tablet 25 mg PO Q6H PRN (Reason: nausea and vomiting) Qty: 10 0RF metronidazole 500 mg tablet 500 mg PO BID 7 Days Qty: 14 0RF oxycodone 5 mg tablet 5 mg PO Q8H PRN (Reason: pain) Qty: 5 0RF Rx Instructions: Partial Fill upon patient request. clonazepam 1 mg tablet 1 tab PO BID PRN (Reason: Anxiety) omeprazole 20 mg capsule,delayed release(DR/EC) 2 cap PO DAILY@0630 zolpidem 10 mg tablet 1 tab PO BEDTIME loratadine 10 mg tablet 1 tab PO DAILY PRN (Reason: Allergy Symptoms) Humira(CF) Pen 40 mg/0.4 mL pen injector kit 40 mg subcut TH@0900 multivitamin with folic acid [Daily-Davis (with folic acid)] 400 mcg tablet 1 tab PO DAILY sumatriptan succinate 100 mg tablet 50 - 100 mg PO .COMPLEX PRN (Reason: migraine headache) 30 Days Qty: 12 6RF Rx Instructions: 50 - 100 mg orally at onset of headache, may repeat in 2 hrs PRN; max 2 tabs per day or 4 tabs/week (may take with Ibuprofen) Referrals: Kyle Espinosa MD [Physician] - 2 days (Call to make a follow-up appointment) [facility] [Primary Care Provider] - 2 days (Call to make a follow-up appointment)
[2022-09-28 08:42] LABS: MANUAL DIFF FLAG NO
[2022-09-28] MEDS: HYDROmorphone HCl 0.5 MG/0.5 ML SYRINGE IVPUSH (08:42)
[2022-09-28] MEDS: 0.9 % Sodium Chloride 1,000 ML 999 ML IVCONT ×2 (08:42→11:49)
[2022-09-28 08:45] LABS: Basophils Percent Auto 0.5 % (0-2); Eosinophils Absolute Auto 0.1 X10*3/uL (0.0-0.4); Hematocrit 41.7 % (42.0-52.0); Hemoglobin 14.4 g/dl (14.0-18.0); Imm Gran Abs Auto 0.02 X10*3/uL (0.00-0.03); Imm Gran Pct Auto 0.3 % (0.0-0.4); Lymphocytes Absolute Auto 1.7 X10*3/uL (1.2-4.9); Lymphocytes Percent Auto 27.4 % (20-40); Mean Corpuscular HGB Conc 34.5 g/dl (31.0-36.0); Mean Corpuscular Hemoglobin 31.6 pg (27.0-33.0); Mean Corpuscular Volume 91.4 fL (80.0-98.0); Mean Platelet Volume 10.3 fL (9.4-12.4); Monocytes Absolute Auto 0.5 X10*3/uL (0.1-1.2); Monocytes Percent Auto 7.5 % (2-11); Neutrophils Percent Auto 63.3 % (45-73); Platelet Count 186 X10*3/uL (160-400); Red Blood Count 4.56 X10*6/uL (4.60-5.80); Red Cell Distribution Width 12.3 % (11.0-16.0); White Blood Count 6.3 X10*3/uL (4.8-10.8)
[2022-09-28 08:51] LABS: INTERNATIONAL NORM RATIO 1.1 (0.9-1.1); Prothrombin Time 12.1 SEC (10.0-13.1)
[2022-09-28 08:59] LABS: Alanine Aminotransferase 47 U/L (0-40); Albumin Level 4.2 g/dL (3.5-5.0); Alkaline Phosphatase 75 U/L (39-117); Anion Gap 11 (12-20); Aspartate Amino Transferase 26 U/L (5-37); Blood Urea Nitrogen 16 mg/dL (9-16); Calcium 9.4 mg/dL (8.4-10.2); Carbon Dioxide 27 mmol/L (22-29); Chloride 104 mmol/L (96-108); Estimated Glomerular Filt Rate > 60; Glucose Random 92 mg/dL (60-115); Lipase 25 U/L (8-78); Potassium 4.2 mmol/L (3.3-5.1); Sodium 138 mmol/L (135-145); Total Protein 7.4 g/dL (6.5-8.0)
[2022-09-28] MEDS: iohexoL 350 MG/ML 100 ML INFUS..BTL 85 ML IV (09:10)
[2022-09-28 09:21] LABS: Influenza A PCR NEGATIVE (Negative); Influenza B PCR NEGATIVE (Negative); Resp Syncy Virus RNA Qual PCR NEGATIVE (Negative); SARS COV2 PCR INHOUSE NEGATIVE (Negative)
[2022-09-28] MEDS: HYDROmorphone HCl 1 MG/ML SYRINGE IVPUSH ×2 (09:43→11:49)
--- OUTSIDE RECORDS SUMMARY | 2022-09-28 09:59 | XMS_ITS | Continuity of Care Document ---
:1980 Author Organization [facility] Address [address] [place] [address]- Care Team Providers Name Role Phone Steven BILLINGS, Manuel Flannery Primary Care Physician Encounter [facility] Date(s): 03/09/20 - 03/09/[address] [address]- [facility] Encounter Diagnosis Abdominal pain, acute (Final) - 03/09/20 Discharge Disposition: A-D/C Home Attending Physician: Jacinto Desir MD Admitting Physician: Jacinto Desir MD Referring Physician: Not on Staff, Referring MD Allergies, Adverse Reactions, Alerts Substance Reaction Severity Status meperidine1 rash Active morphine2 rash Active sulfonamides rash Active trazodone-like drugs Active Toradol itchiness Active Zofran3 rash Active Haldol Active Compazine rash Active Reglan rash Active 1Tolerates swajosqpdlhhz9Gujpbfowc pxntauxufcagv2Ae states he tolerates zofran when given with benadryl Immunizations Given and Recorded Vaccine Date Status Refusal Reason pneumococcal 23-valent vaccine1 01/21/13 Given diphtheria-tetanus toxoids (DT)2 11/10/10 Given influenza virus vaccine, inactivated3 10/22/10 Given Pneumococcal Vaccine (oldterm) 12/17/07 Given 1Result Comment: w [id number] Note: VIS GIVEN VIS DATE Note: pt states he received approx 2 months prior to admission Medications acetaminophen-oxyCODONE 325 mg-5 mg oral tablet 2, tablet, By Mouth, Every 6 hours, PRN, # 8 tablet, Refills 0, Tot. Refills 0, Maintenance, for pain, 03/09/20 21:40:00 EDT, Route to Pharmacy Electronically, [facility]/pharmacy #[id number] Tablet, Partial fill upon patient request, 160, cm, 08/29/20 19:33:00 ED... Start Date: 03/09/20 Status: OrderedclonazePAM 1 mg oral tablet 1 tablet = 1 mg, By Mouth, 2 times a day, PRN as needed Start Date: 01/06/18 Status: Orderedcyanocobalamin 1000 mcg/ml injectable solution = 1,000 mcg, Intramuscular, Every 30 days Start Date: 01/06/18 Status: OrderedDaily Davis oral tablet 1 tablet, By Mouth, Daily, Maintenance, 02/09/20 14:37:00 EDT, Tablet Start Date: 02/09/20 Status: Orderedergocalciferol 61258 iu oral capsule 50,000 International_Units, 1, capsule, By Mouth, Every Wednesday Start Date: 01/06/18 Status: Orderedferrous sulfate 325 mg oral enteric coated tablet 325 mg, 1, tablet, By Mouth, Every other day Start Date: 01/06/18 Status: OrderedHumira Pen 40 mg/0.4 mL subcutaneous kit = 40 mg, Subcutaneous Infusion, Once, 0 Refills, Maintenance, 11/21/18 3:45:25 EDT Start Date: 11/21/18 Status: Orderedhydrocortisone 1% topical cream 1 applicator, Topically, 2 times a day, PRN as needed Start Date: 01/06/18 Status: Orderedomeprazole 20 mg oral enteric coated capsule 1 capsule = 20 mg, By Mouth, 2 times a day, Maintenance, 02/09/20 14:37:00 EDT Start Date: 02/09/20 Status: Orderedpromethazine 12.5 mg oral tablet 1 tablet = 12.5 mg, By Mouth, Every 6 hours, PRN for nausea/vomiting, # 14 tablet, 0 Refills, Acute 09/14/20 13:28:00 EST, 09/14/19 13:27:00 EST, Tablet, [facility]/pharmacy #[id number], 165, cm, 09/14/19 10:16:00 EST, Height, 74.4, kg, 09/14/19 10:16:00 EST, Dry... Start Date: 09/14/19 Stop Date: 09/14/20 Status: Orderedpromethazine 50 mg rectal suppository 1 supp = 50 mg, Rectally, Every 6 hours, PRN for nausea/vomiting, # 12 supp, 0 Refills, Maintenance,01/04/20 18:23:00 EDT, Suppository, [facility]/pharmacy #[id number], 165, cm, 01/04/20 16:36:00 EDT, Height, 72.6, kg, 01/04/20 16:36:00 EDT, Dry Weight Start Date: 01/04/20 Status: Orderedsimethicone 125 mg oral tablet, chewable 1 tablet = 125 mg, Chew, 4 times a day, PRN as needed, Maintenance, 02/09/20 14:34:00 EDT, Chew Tablet Start Date: 02/09/20 Status: OrderedSUMAtriptan 100 mg oral tablet 1 tablet = 100 mg, By Mouth, Daily, PRN as needed for migraine headache, May take 1/2-1 tablet as needed. may repeat dose in 2 hours if needed Start Date: 02/09/20 Status: OrderedtiZANidine 4 mg oral tablet 4 mg, 1, tablet, By Mouth, Daily at bedtime Start Date: 02/09/20 Status: OrderedtraMADol 50 mg oral tablet = 100 mg, By Mouth, Every 6 hours, PRN as needed for pain, 1-2 tablets as needed Start Date: 01/06/18 Status: OrderedVitamin B2 100 mg oral tablet 1 tablet = 100 mg, By Mouth, Daily Start Date: 01/06/18 Status: Orderedzolpidem 10 mg oral tablet 1 tablet = 10 mg, By Mouth, Daily at bedtime Start Date: 01/06/18 Status: Ordered Problem List Condition Effective Dates Status Health Status Informant Anxiety(Confirmed) Active Depression(Confirmed) Active Colitis, ulcerative(Confirmed) Active Vital Signs Most recent to oldest 1 2 3 [Reference Range]: Height 160 cm 160 cm 160 cm (03/09/20 7:33 PM) (03/09/20 6:13 PM) (03/09/20 3:3 6 PM) Weight 79.2 kg 79.2 kg 79.2 kg (03/09/20 7:33 PM) (03/09/20 6:13 PM) (03/09/20 3:3 6 PM) Oxygen Saturation [94-100 %] 96 % 98 % 92 % (03/09/20 9:53 PM) (03/09/20 7:33 PM) *L* (03/09/20 6:13 PM ) Pulse Rate [55-90 bpm] 71 bpm 84 bpm 85 bpm (03/09/20 9:53 PM) (03/09/20 7:33 PM) (03/09/20 6:1 3 PM) Body Mass Index [18.5-24.99] 30.94 30.94 30. 94 *>HHI* *>HHI* *>HHI* (03/09/20 7:33 PM) (03/09/20 6:13 PM) (03/09/20 3:3 6 PM) Blood Pressure [90-138/55-84 mm 126/87 mm Hg 140/95 mm Hg 111/78 mm Hg Hg] (03/09/20 9:53 PM) *H* (03/09/20 6:13 PM) (03/09/20 7:33 PM) Respiratory Rate [16-30 br/min] 16 br/min 22 br/min 16 br/min (03/09/20 9:53 PM) (03/09/20 7:33 PM) (03/09/20 6:3 3 PM) Temperature [96.8-100.4 DegF] 97.8 DegF 97.8 DegF (03/09/20 7:33 PM) (03/09/20 1:07 PM) Mode of Delivery (Oxygen) Room air Room air Room a ir (03/09/20 9:53 PM) (03/09/20 7:33 PM) (03/09/20 6:1 3 PM) Blood pressure sites Arm, left Arm, left Arm, left (03/09/20 9:53 PM) (03/09/20 7:33 PM) (03/09/20 6:1 3 PM) Temperature Route Oral Temporal (03/09/20 7:33 PM) (03/09/20 1:07 PM) Dry Weight 79.2 kg 79.2 kg 79.2 kg (03/09/20 7:33 PM) (03/09/20 6:13 PM) (03/09/20 3:3 6 PM) Weight Obtained Via Standing scale (03/09/20 1:07 PM) Dry Weight Obtained Via Standing scale (03/09/20 1:07 PM) Social History Social History Type Response Smoking Status Never (less than 100 in life time) entered on: 02/04/19 Sex
--- OUTSIDE RECORDS SUMMARY | 2022-09-28 09:59 | XMS_ITS | Continuity of Care Document ---
:1980 Author Organization [facility] Address [address] [place] [address]- Care Team Providers Name Role Phone Manuel Harris MD Primary Care Physician [id number] Date(s): 09/18/20 - 09/18/[address] [address]- Discharge Disposition: A-D/C Home Attending Physician: Chintan Stark MD Admitting Physician: Chintan Stark MD Referring Physician: Not on Staff, Referring MD Allergies, Adverse Reactions, Alerts Substance Reaction Severity Status meperidine1 rash Active morphine2 rash Active sulfonamides rash Active trazodone-like drugs Active Toradol itchiness Active Zofran3 rash Active Haldol Active Compazine rash Active Reglan rash Active 1Tolerates bgzztkhvfpbgc9Fvntpzryu ahwxjiowqlsqt5Tc states he tolerates zofran when given with benadryl Immunizations Given and Recorded Vaccine Date Status Refusal Reason pneumococcal 23-valent vaccine1 01/21/13 Given diphtheria-tetanus toxoids (DT)2 11/10/10 Given influenza virus vaccine, inactivated3 10/22/10 Given Pneumococcal Vaccine (oldterm) 12/17/07 Given 1Result Comment: lai [id number] Note: VIS GIVEN VIS DATE Note: pt states he received approx 2 months prior to admission Medications Ambien 10 mg oral tablet 1 tablet = 10 mg, By Mouth, Daily at bedtime, PRN as needed for insomnia, 0 Refills, Maintenance, 07/21/20 22:28:00 EST, Tablet, Partial fill upon patient request if the prescription is for a schedule II opioid drug. Start Date: 07/21/20 Status: OrderedclonazePAM 1 mg oral tablet 1 tablet = 1 mg, By Mouth, 2 times a day, PRN as needed Start Date: 01/06/18 Status: Orderedcyanocobalamin 1000 mcg/ml injectable solution = 1,000 mcg, Intramuscular, Every 30 days Start Date: 01/06/18 Status: OrderedHumira Pen 40 mg/0.4 mL subcutaneous kit = 40 mg, Subcutaneous Infusion, Every week, 0 Refills, Maintenance, 11/21/18 3:45:25 EDT Start Date: 11/21/18 Status: Orderedpromethazine 25 mg oral tablet 1 tablet = 25 mg, By Mouth, Every 4 hours, PRN for nausea/vomiting, # 60 tablet, 0 Refills, Maintenance, 06/22/20 8:34:00 EST, Tablet, [facility]/pharmacy #[id number], Partial fill upon patient request if the prescription is for a schedule II opioid drug., 165, cm... Start Date: 06/22/20 Status: Ordered Problem List Condition Effective Dates Status Health Status Informant Anxiety(Confirmed) Active Depression(Confirmed) Active Colitis, ulcerative(Confirmed) Active Vital Signs Most recent to oldest 1 2 3 [Reference Range]: Height 165 cm 165 cm 165 cm (09/18/20 7:26 PM) (09/18/20 4:50 PM) (09/18/20 4:4 6 PM) Weight 78 kg 78 kg 79.2 kg (09/18/20 7:26 PM) (09/18/20 4:50 PM) (09/18/20 4:4 6 PM) Oxygen Saturation [94-100 98 % 95 % 95 % %] (09/18/20 7:26 PM) (09/18/20 6:00 PM) (09/18/20 4:4 6 PM) Pulse Rate [55-90 bpm] 83 bpm 82 bpm (09/18/20 7:26 PM) (09/18/20 4:46 PM) Body Mass Index 28.65 [18.5-24.99] *H* (09/18/20 7: PM) Blood Pressure 123/75 mm Hg 125/80 mm Hg 118/79 mm Hg [90-138/55-84 mm Hg] (09/18/20 7:26 PM) (09/18/20 6:00 PM) ( 1 4:46 PM) Respiratory Rate [16-30 20 br/min 17 br/min br/min] (09/18/20 7:26 PM) (09/18/20 4:46 PM) Temperature [96.8-100.4 98.3 DegF DegF] (09/18/20 4:46 PM) Mode of Delivery (Oxygen) Room air Room air Room a ir (09/18/20 7:26 PM) (09/18/20 6:00 PM) (09/18/20 4:4 6 PM) Blood pressure sites Arm, left Arm, right (09/18/20 7:26 PM) (09/18/20 4:46 PM) Temperature Route Oral (09/18/20 4:46 PM) Dry Weight 78 kg 78 kg 79.2 kg (09/18/20 7:26 PM) (09/18/20 4:50 PM) (09/18/20 4:4 6 PM) Weight Obtained Via Patient/family stated (09/18/20 4:50 PM) Dry Weight Obtained Via Patient/family stated Standing scale (09/18/20 4:50 PM) (09/18/20 4:46 PM) Social History Social History Type Response Smoking Status Never (less than 100 in life time) entered on: 02/04/19 Sex
--- OUTSIDE RECORDS SUMMARY | 2022-09-28 09:59 | XMS_ITS | Continuity of Care Document ---
:1980 Author Organization [facility] Address [address] [place] [address]- Care Team Providers Name Role Phone Manuel Harris MD Primary Care Physician Encounter [facility] Date(s): 07/12/20 - 07/13/[address] [address]- Discharge Disposition: A-D/C Home Attending Physician: Luis Smith MD Admitting Physician: Luis Smith MD Referring Physician: Not on Staff, Referring MD Allergies, Adverse Reactions, Alerts Substance Reaction Severity Status meperidine1 rash Active morphine2 rash Active sulfonamides rash Active trazodone-like drugs Active Toradol itchiness Active Zofran3 rash Active Haldol Active Compazine rash Active Reglan rash Active 1Tolerates kslobmvyyzudw6Mekjjnmcl qkdlyorguygmf5Fz states he tolerates zofran when given with benadryl Immunizations Given and Recorded Vaccine Date Status Refusal Reason pneumococcal 23-valent vaccine1 01/21/13 Given diphtheria-tetanus toxoids (DT)2 11/10/10 Given influenza virus vaccine, inactivated3 10/22/10 Given Pneumococcal Vaccine (oldterm) 12/17/07 Given 1Result Comment: lai [id number] Note: VIS GIVEN VIS DATE Note: pt states he received approx 2 months prior to admission Medications clonazePAM 1 mg oral tablet 1 tablet = 1 mg, By Mouth, 2 times a day, PRN as needed Start Date: 01/06/18 Status: Orderedcyanocobalamin 1000 mcg/ml injectable solution = 1,000 mcg, Intramuscular, Every 30 days Start Date: 01/06/18 Status: OrderedHumira Pen 40 mg/0.4 mL subcutaneous kit = 40 mg, Subcutaneous Infusion, Every week, 0 Refills, Maintenance, 11/21/18 3:45:25 EDT Start Date: 11/21/18 Status: OrderedKeflex monohydrate 500 mg oral capsule 1 capsule = 500 mg, By Mouth, 4 times a day, for 10 days, # 40 capsule, 0 Refills, Acute 07/23/20 0:10:00 EST, 07/13/20 0:10:00 EST, Capsule, [facility]/pharmacy #[id number], Partial fill upon patient request if the prescription is for a schedule II opioid drug.,... Start Date: 07/13/20 Stop Date: 07/23/20 Status: OrderedoxyCODONE 5 mg oral capsule 2 capsule = 10 mg, By Mouth, Every 6 hours, PRN as needed for pain, 0 Refills, Maintenance, 203:32:00 EST, Capsule, Partial fill upon patient request if the prescription is for a schedule II opioid drug. Start Date: 06/22/20 Status: Orderedpromethazine 25 mg oral tablet 1 tablet = 25 mg, By Mouth, Every 4 hours, PRN for nausea/vomiting, # 60 tablet, 0 Refills, Maintenance, 06/22/20 8:34:00 EST, Tablet, [facility]/pharmacy #[id number], Partial fill upon patient request if the prescription is for a schedule II opioid drug., 165, cm... Start Date: 06/22/20 Status: OrderedtraMADol 50 mg oral tablet = 100 mg, By Mouth, Every 4 hours, PRN as needed for pain, 1-2 tablets as needed Start Date: 01/06/18 Status: OrderedVitamin B2 100 mg oral tablet 1 tablet = 100 mg, By Mouth, Daily Start Date: 01/06/18 Status: Ordered Problem List Condition Effective Dates Status Health Status Informant Anxiety(Confirmed) Active Depression(Confirmed) Active Colitis, ulcerative(Confirmed) Active Vital Signs Most recent to oldest [Reference Range]: 1 Height 165 cm (07/12/20 10:36 PM) Weight 80.7 kg (07/12/20 10:36 PM) Oxygen Saturation [94-100 %] 100 % (07/12/20 10:36 PM) Pulse Rate [55-90 bpm] 91 bpm *H* (07/12/20 10:36 PM) Blood Pressure [90-138/55-84 mm Hg] 118/81 mm Hg (07/12/20 10:36 PM) Respiratory Rate [16-30 br/min] 22 br/min (07/12/20 10:36 PM) Temperature [96.8-100.4 DegF] 97.5 DegF (07/12/20 10:36 PM) Mode of Delivery (Oxygen) Room air (07/12/20 10:36 PM) Temperature Route Temporal (07/12/20 10:36 PM) Dry Weight 80.7 kg (07/12/20 10:36 PM) Weight Obtained Via Standing scale (07/12/20 10:36 PM) Dry Weight Obtained Via Standing scale (07/12/20 10:36 PM) Social History Social History Type Response Smoking Status Never (less than 100 in life time) entered on: 02/04/19 Sex
--- OUTSIDE RECORDS SUMMARY | 2022-09-28 09:59 | XMS_ITS | Continuity of Care Document ---
:1980 Author Organization [facility] Address [address] [place] [address]- Care Team Providers Name Role Phone Steven BILLINGS, Manuel Flannery Primary Care Physician Encounter [facility] Date(s): 05/02/20 - 05/03/[address] [address]- [facility] Encounter Diagnosis Small bowel obstruction, partial (Final) - 05/02/20 Discharge Disposition: A-D/C Home Attending Physician: Harley BILLINGS, Jose L Admitting Physician: Joel BILLINGS, [facility] Referring Physician: Jules Ramirez DO Allergies, Adverse Reactions, Alerts Substance Reaction Severity Status meperidine1 rash Active morphine2 rash Active sulfonamides rash Active trazodone-like drugs Active Toradol itchiness Active Zofran3 rash Active Haldol Active Compazine rash Active Reglan rash Active 1Tolerates opwacxhtorndg9Tzhrmvgrk alijennwnyvdi5Ps states he tolerates zofran when given with benadryl Immunizations Given and Recorded Vaccine Date Status Refusal Reason pneumococcal 23-valent vaccine1 01/21/13 Given diphtheria-tetanus toxoids (DT)2 11/10/10 Given influenza virus vaccine, inactivated3 10/22/10 Given Pneumococcal Vaccine (oldterm) 12/17/07 Given 1Result Comment: w [id number] Note: VIS GIVEN VIS DATE Note: pt [...] 11/21/18 3:45:25 EDT Start Date: 11/21/18 Status: OrderedtraMADol 50 mg oral tablet = [...] oldest 1 2 3 [Reference Range]: Height 163 cm 163 cm 163 cm (05/02/20 7:18 AM) (05/01/20 11:21 PM) (05/01/20 11:19 PM) Weight 78.3 kg 73 kg 73 kg (05/02/20 7:18 AM) (05/01/20 11:21 PM) (05/01/20 11:19 PM) Oxygen Saturation [94-100 96 % 97 % 94 % %] (05/03/20 6:00 AM) (05/02/20 8:00 PM) (05/02/20 2:00 PM) Pulse Rate [55-90 bpm] 80 bpm 68 bpm 81 bpm (05/03/20 6:00 AM) (05/02/20 8:00 PM) (05/02/20 2:00 PM) Body Mass Index 29.47 27.48 [18.5-24.99] *H* *H* (05/02/20 7:18 AM) (05/01/20 11:19 PM) Blood Pressure 114/77 mm Hg 130/84 mm Hg [90-138/55-84 mm Hg] (05/03/20 6:00 AM) (05/02/20 2:00 PM) Systolic Blood Pressure 115 mm Hg [90-138 mm Hg] (05/02/20 8:00 PM) Diastolic Blood Pressure 83 mm Hg [55-84 mm Hg] (05/02/20 8:00 PM) Respiratory Rate [16-30 19 br/min 20 br/min 20 br/mi n br/min] (05/03/20 6:00 AM) (05/02/20 11:39 PM) (05/02/20 10:54 PM) Temperature [96.8-100.4 98.3 DegF 97.9 DegF 97.3 Deg F DegF] (05/03/20 6:00 AM) (05/02/20 8:00 PM) (05/02/20 2:00 PM) Mode of Delivery (Oxygen) Room air Room air Room a ir (05/03/20 6:00 AM) (05/02/20 8:00 PM) (05/02/20 2:00 PM) Blood pressure sites Arm, right Arm, right Arm, right (05/03/20 6:00 AM) (05/02/20 8:00 PM) (05/02/20 2:00 PM) Temperature Route Oral Oral Temporal (05/03/20 6:00 AM) (05/02/20 8:00 PM) (05/02/20 2:00 PM) Dry Weight 78.3 kg 73 kg 73 kg (05/02/20 7:18 AM) (05/01/20 11:21 PM) (05/01/20 11:19 PM) Weight Obtained Via Standing scale Patient/family stated (05/02/20 7:18 AM) (05/01/20 11:19 PM) Dry Weight Obtained Via Patient/family stated (05/01/20 11:19 PM) Social History Social History Type Response Smoking Status Never (less than 100 in life time) entered on: 02/04/19 Sex
--- OUTSIDE RECORDS SUMMARY | 2022-09-28 09:59 | XMS_ITS | Continuity of Care Document ---
:1980 Author Organization [facility] Address [address] [place] [address]- Care Team Providers Name Role Phone Steven BILLINGS, Manuel Flannery Primary Care Physician [phone] [place] [facility] Date(s): 02/09/20 - 02/09/[address] [address]- [facility] Discharge Disposition: A-D/C Home Attending Physician: Maricel BILLINGS, Dillan Mclean Admitting Physician: Obi Trevino MD Referring Physician: Not on Staff, Referring MD Allergies, Adverse Reactions, Alerts Substance Reaction Severity Status meperidine1 rash Active morphine2 rash Active sulfonamides rash Active trazodone-like drugs Active Toradol itchiness Active Zofran3 rash Active Haldol Active Compazine rash Active Reglan rash Active 1Tolerates zwsvzsxdhujjc0Dbocdgmfe awertzwkbmrsq0Vo states he tolerates zofran when given with benadryl Immunizations Given and Recorded Vaccine Date Status Refusal Reason pneumococcal 23-valent vaccine1 01/21/13 Given diphtheria-tetanus toxoids (DT)2 11/10/10 Given influenza virus vaccine, inactivated3 10/22/10 Given Pneumococcal Vaccine (oldterm) 12/17/07 Given 1Result Comment: w [id number] Note: VIS GIVEN VIS DATE Note: pt [...] EDT, Tablet Start Date: 02/09/20 Status: Orderedergocalciferol 91671 iu oral capsule 50,000 International_Units, 1, capsule, [...] 09/14/20 13:28:00 EST, 09/14/19 13:27:00 EST, Tablet, [facility]/pharmacy #[id number], 165, cm, 09/14/19 10:16:00 EST, Height, 74.4, kg, 09/14/19 10:16:00 EST, Dry... Start Date: 09/14/19 Stop Date: 09/14/20 Status: Orderedpromethazine 50 mg rectal suppository 1 supp = 50 mg, Rectally, Every 6 hours, PRN for nausea/vomiting, # 12 supp, 0 Refills, Maintenance,01/04/20 18:23:00 EDT, Suppository, [facility]/pharmacy #[id number], 165, cm, 01/04/20 16:36:00 EDT, Height, [...] Height 165 cm 165 cm 165 cm (02/09/20 7:59 PM) (02/09/20 2:17 PM) (02/09/20 6:0 7 AM) Weight 72.72 kg 72.72 kg 72.72 kg (02/09/20 6:07 AM) (02/09/20 3:46 AM) (02/09/20 3:1 2 AM) Oxygen Saturation [94-100 96 % 95 % 99 % %] (02/09/20 7:59 PM) (02/09/20 2:17 PM) (02/09/20 1:1 8 PM) Pulse Rate [55-90 bpm] 75 bpm 91 bpm 68 bpm (02/09/20 7:59 PM) *H* (02/09/20 1:18 PM) (02/09/20 2:17 PM) Body Mass Index 26.71 26.71 [18.5-24.99] *H* *H* (02/09/20 6:07 AM) (02/09/20 3:46 AM) Blood Pressure 109/71 mm Hg 103/76 mm Hg 136/88 mm Hg [90-138/55-84 mm Hg] (02/09/20 7:59 PM) (02/09/20 2:17 PM) ( 0 1:18 PM) Respiratory Rate [16-30 18 br/min 20 br/min 18 br/mi n br/min] (02/09/20 8:30 PM) (02/09/20 8:00 PM) (02/09/20 7:5 9 PM) Temperature [96.8-100.4 98.3 DegF 97.9 DegF 98.2 Deg F DegF] (02/09/20 7:59 PM) (02/09/20 2:17 PM) (02/09/20 1:1 8 PM) Mode of Delivery (Oxygen) Room air Room air Room a ir (02/09/20 7:59 PM) (02/09/20 2:17 PM) (02/09/20 1:1 8 PM) Blood pressure sites Arm, left Arm, right Arm, right (02/09/20 7:59 PM) (02/09/20 2:17 PM) (02/09/20 1:1 8 PM) Temperature Route Oral Oral Oral (02/09/20 7:59 PM) (02/09/20 2:17 PM) (02/09/20 1:1 8 PM) Weight Obtained Via Patient/family stated (02/09/20 3:12 AM) Social History Social History Type Response Smoking Status Never (less than 100 in life time) entered on: 02/04/19 Sex
[2022-09-28 10:00] VITALS: BP 114/78; PULSE 66; RESP 13; TEMP 36.7; O2SAT 97
--- NOTE | 2022-09-28 10:00 | PC.NURSE ---
Patient able to ambulate to bathroom independently. Patient states that the pain medication is starting to take effect.
--- OUTSIDE RECORDS SUMMARY | 2022-09-28 10:00 | XMS_ITS | Continuity of Care Document ---
:1980 Author Organization [facility] Address [address] [place] [address]- Care Team Providers Name Role Phone Steven BILLINGS, Manuel Flannery Primary Care Physician [phone] Encounter [facility] [place] [place] Date(s): 12/14/19 - 12/14/[address] [address]- [facility] Discharge Disposition: A-D/C Home Attending Physician: Royer Mckeon MD Admitting Physician: Royer Mckeon MD Referring Physician: Not on Staff, Referring MD Allergies, Adverse Reactions, Alerts Substance Reaction Severity Status meperidine1 rash Active morphine2 rash Active sulfonamides rash Active trazodone-like drugs Active Toradol itchiness Active Zofran3 rash Active Haldol Active Compazine rash Active Reglan rash Active 1Tolerates msudnkuscsuro7Nwrkxnysf yerdccdtgrncb5Lw states he tolerates zofran when given with benadryl Immunizations Given and Recorded Vaccine Date Status Refusal Reason pneumococcal 23-valent vaccine1 01/21/13 Given diphtheria-tetanus toxoids (DT)2 11/10/10 Given influenza virus vaccine, inactivated3 10/22/10 Given Pneumococcal Vaccine (oldterm) 12/17/07 Given 1Result Comment: w [id number] Note: VIS GIVEN VIS DATE Note: pt states he received approx 2 months prior to admission Medications clonazePAM 1 mg oral tablet TAKE 1 TABLET BY MOUTH TWICE A DAY NEEDED Start Date: 01/06/18 Status: Orderedcyanocobalamin 1000 mcg/ml injectable solution INJECT 1 ML (1,000 MCG TOTAL) UNDER THE SKIN EVERY 30 DAYS. INJECT DIRECTED Start Date: 01/06/18 Status: Orderedergocalciferol 09220 iu oral capsule TAKE 1 CAPSULE (50,000 UNITS TOTAL) BY MOUTH ONCE A WEEK. Start Date: 01/06/18 Status: Orderedferrous sulfate 325 mg oral enteric coated tablet 325 mg, 1, tablet, By Mouth, Daily, TOME MARISABEL TABLETA POR V?A ORAL CADA DOS D? Start Date: 01/06/18 Status: OrderedHumira Pen 40 mg/0.4 mL subcutaneous kit = 40 mg, Subcutaneous Infusion, Once, 0 Refills, Maintenance, 11/21/18 3:45:25 EDT Start Date: 11/21/18 Status: Orderedhydrocortisone 1% topical cream APPLY BY TOPICAL ROUTE 2 TIMES EVERY DAY TO THE AFFECTED AREA(S) Start Date: 01/06/18 Status: Orderedpromethazine 12.5 mg oral tablet 1 tablet = 12.5 mg, By Mouth, Every 6 hours, PRN for nausea/vomiting, # 14 tablet, 0 Refills, Acute 09/14/20 13:28:00 EST, 09/14/19 13:27:00 EST, Tablet, [id number], 165, cm, 09/14/19 10:16:00 EST, Height, 74.4, kg, 09/14/19 10:16:00 EST, Dry... Start Date: 09/14/19 Stop Date: 09/14/20 Status: Orderedsimethicone 125 mg oral capsule 1 capsule = 125 mg, By Mouth, 4 times a day, # 30 capsule, 0 Refills, Maintenance, 01/06/18 18:52:31EDT, Capsule Start Date: 01/06/18 Status: OrderedtraMADol 50 mg oral tablet = 100 mg, TAKE 1 TABLET BY MOUTH EVERY 6 HOURS NEEDED FOR PAIN. Start Date: 01/06/18 Status: OrderedVitamin B2 100 mg oral tablet TAKE 2 TABLETS BY MOUTH TWICE A DAY Start Date: 01/06/18 Status: Orderedzolpidem 10 mg oral tablet TAKE 1 TABLET BY MOUTH EVERYDAY AT BEDTIME Start Date: 01/06/18 Status: Ordered Problem List Condition Effective Dates Status Health Status Informant Anxiety(Confirmed) Active Depression(Confirmed) Active Colitis, ulcerative(Confirmed) Active Vital Signs Most recent to oldest 1 2 3 [Reference Range]: Weight 80.7 kg 80.7 kg (12/14/19 2:35 PM) (12/14/19 10:21 AM) Oxygen Saturation [94-100 %] 98 % 100 % 100 % (12/14/19 2:35 PM) (12/14/19 10:21 AM) (12/14/19 10:14 AM) Pulse Rate [55-90 bpm] 91 bpm 87 bpm 94 bpm *H* (12/14/19 10:21 AM) *H* (12/14/19 2:35 PM) (12/14/19 10:14 A M) Blood Pressure [90-138/55-84 mm 119/69 mm Hg 120/83 mm Hg Hg] (12/14/19 2:35 PM) (12/14/19 10:21 AM) Respiratory Rate [16-30 br/min] 22 br/min 20 br/min 20 br/min (12/14/19 2:35 PM) (12/14/19 2:30 PM) (12/14/19 12:50 PM) Temperature [96.8-100.4 DegF] 97.5 DegF (12/14/19 10:21 AM) Mode of Delivery (Oxygen) Room air Room air (12/14/19 2:35 PM) (12/14/19 10:21 AM) Blood pressure sites Arm, left Arm, right (12/14/19 2:35 PM) (12/14/19 10:21 AM) Temperature Route Oral (12/14/19 10:21 AM) Dry Weight 80.7 kg 80.7 kg (12/14/19 2:35 PM) (12/14/19 10:21 AM) Weight Obtained Via Standing scale (12/14/19 10:21 AM) Dry Weight Obtained Via Standing scale (12/14/19 10:21 AM) Social History Social History Type Response Smoking Status Never (less than 100 in life time) entered on: 02/04/19 Sex
--- OUTSIDE RECORDS SUMMARY | 2022-09-28 10:00 | XMS_ITS | Continuity of Care Document ---
:1980 Author Organization [facility] Address [address] [place] [address]- Care Team Providers Name Role Phone Manuel Harris MD Primary Care Physician [id number] Date(s): 03/31/21 - 03/31/[address] [address]- Discharge Disposition: A-D/C Walkout Attending Physician: Not on Staff, Attending MD Admitting Physician: Not on Staff, Admitting MD Referring Physician: Not on Staff, Referring MD Allergies, Adverse Reactions, Alerts Substance Reaction Severity Status trazodone-like drugs Active Toradol itchiness Active Zofran1 rash Active Haldol Active meperidine2 rash Active morphine3 rash Active sulfonamides rash Active Reglan rash Active Compazine rash Active 1Pt states he tolerates zofran when given with oxgwkwnk4Atmlkrqyj hydromorphone3 Tolerates hydromorphone Immunizations Given and Recorded Vaccine Date Status Refusal Reason pneumococcal 23-valent vaccine1 01/21/13 Given diphtheria-tetanus toxoids (DT)2 11/10/10 Given influenza virus vaccine, inactivated3 10/22/10 Given Pneumococcal Vaccine (oldterm) 12/17/07 Given 1Result Comment: lai [id number] Note: VIS GIVEN VIS DATE Note: pt [...] 11/21/18 3:45:25 EDT Start Date: 11/21/18 Status: OrderedOmeprazole = 20 mg, By Mouth, Daily, 0 Refills, Maintenance, 03/03/21 2:27:00 EDT, Partial fill upon patient request if the prescription is for a schedule II opioid drug. Start Date: 03/03/21 Status: Ordered Problem List Condition Effective Dates Status Health Status Informant Anxiety(Confirmed) Active Depression(Confirmed) Active Colitis, ulcerative(Confirmed) Active Social History Social History Type Response Smoking Status Never (less than 100 in life time) entered on: 02/04/19 Sex
--- OUTSIDE RECORDS SUMMARY | 2022-09-28 10:00 | XMS_ITS | Continuity of Care Document ---
:1980 Author Organization [facility] Address [address] [place] [address]- Care Team Providers Name Role Phone Steven BILLINGS, Manuel Flannery Primary Care Physician [phone] Encounter [facility] [place] Date(s): 04/21/21 - 04/21/[address] [address]- Discharge Disposition: A-D/C Walkout Attending Physician: Not on Staff, Attending MD Admitting Physician: Not on Staff, Admitting MD Referring Physician: Not on Staff, Referring MD Allergies, Adverse Reactions, Alerts Substance Reaction Severity Status meperidine1 rash Active morphine2 rash Active trazodone-like drugs Active Toradol itchiness Active Zofran3 rash Active Haldol Active sulfonamides rash Active Compazine rash Active Reglan rash Active 1Tolerates tvwsfylciltph2Nupdptvpj ztjscqdwvphaw0Mc states he tolerates zofran when given with benadryl Immunizations Given and Recorded Vaccine Date Status Refusal Reason pneumococcal 23-valent vaccine1 01/21/13 Given diphtheria-tetanus toxoids (DT)2 11/10/10 Given influenza virus vaccine, inactivated3 10/22/10 Given Pneumococcal Vaccine (oldterm) 12/17/07 Given 1Result Comment: lai [id number] Note: VIS GIVEN VIS DATE Note: pt [...] Most recent to oldest [Reference Range]: 1 Oxygen Saturation [94-100 %] 100 % (04/21/21 1:16 PM) Pulse Rate [55-90 bpm] 68 bpm (04/21/21 1:16 PM) Mode of Delivery (Oxygen) Room air (04/21/21 1:16 PM) Social History Social History Type Response Smoking Status Never (less than 100 in life time) entered on: 02/04/19 Sex
--- OUTSIDE RECORDS SUMMARY | 2022-09-28 10:00 | XMS_ITS ---
:1980 Author Care Team Providers Name Role Phone [facility] Referring Provider [phone] [facility] Referring Provider [phone] Allergies None recorded. Medications Name Status Start [...] Diagnosis Provider 02/27/2022 Covid-19 Matilde Fairbanks MD: [address] [place] [id number], . Social History None recorded. Vaccine List [...]
--- OUTSIDE RECORDS SUMMARY | 2022-09-28 10:00 | XMS_ITS | Continuity of Care Document ---
:1980 Author Organization [facility] Address [address] [place] [address]- Care Team Providers Name Role Phone Steven BILLINGS, Manuel Flannery Primary Care Physician Encounter [facility] [place] Date(s): 03/02/21 - 03/04/[address] [address]- Encounter Diagnosis Abdominal pain (Final) - 03/03/21 Rectal bleeding (Final) - 03/03/21 Nausea with vomiting (Final) - 03/03/21 Discharge Disposition: A-D/C Home Attending Physician: Pipo BILLINGS, [facility] Admitting Physician: William Coronado MD Referring Physician: Not on Staff, Referring MD Allergies, Adverse Reactions, Alerts Substance Reaction Severity Status trazodone-like drugs Active Toradol itchiness Active Zofran1 rash Active Haldol Active Compazine rash Active meperidine2 rash Active morphine3 rash Active sulfonamides rash Active Reglan rash Active 1Pt states he tolerates zofran when given with gsexafqc6Fmzpkedys hydromorphone3 Tolerates hydromorphone Immunizations Given and Recorded Vaccine Date Status Refusal Reason pneumococcal 23-valent vaccine1 01/21/13 Given diphtheria-tetanus toxoids (DT)2 11/10/10 Given influenza virus vaccine, inactivated3 10/22/10 Given Pneumococcal Vaccine (oldterm) 12/17/07 Given 1Result Comment: w [id number] Note: VIS GIVEN VIS DATE Note: pt [...] Every 30 days Start Date: 01/06/18 Status: OrderedDilaudid Inj 2 mg, Injection, IV Push Slowly, Every 3 hours, PRN for Pain , Severe, Routine, 03/03/21 6:29:00 EDT Start Date: 03/03/21 Stop Date: 03/10/21 Status: OrderedHumira Pen 40 mg/0.4 mL subcutaneous kit = 40 mg, Subcutaneous Infusion, Every week, 0 Refills, Maintenance, 11/21/18 3:45:25 EDT Start Date: 11/21/18 Status: OrderedOmeprazole = 20 mg, By Mouth, Daily, 0 Refills, Maintenance, 03/03/21 2:27:00 EDT, Partial fill upon patient request if the prescription is for a schedule II opioid drug. Start Date: 03/03/21 Status: OrderedtraMADol 50 mg oral tablet 2 tablet = 100 mg, By Mouth, Every 12 hours, PRN for pain, for 7 days, # 28 tablet, 0 Refills, Acute03/11/21 12:59:00 EDT, 03/04/21 12:59:00 EDT, Tablet, [facility], Partial fill upon patient request if the prescription is for a schedul... Start Date: 03/04/21 Stop Date: 03/11/21 Status: Ordered Problem List Condition Effective Dates Status Health Status Informant Anxiety(Confirmed) Active Depression(Confirmed) Active Colitis, ulcerative(Confirmed) Active Results Radiology Reports Exam Date Time Procedure Performing Provider Status 03/02/21 10:52 PM Abdomen AP Marlon Mccauley; Jacquelyn (Verified ) Notes:(Abdomen AP) Reason For Exam: DistentionRESULT: XR Abdomen AP XR Abdomen AP upright AP view. INDICATION: Hx of Present Illness: Vomiting blood + bloody stool; Reason: Distention; Clinical Question(s): Obstruction; Free Air; Special Instructions: Upright. Age 40 years COMPARISON: 11/24/2020. FINDINGS: Normal bowel gas pattern. No evidence of pneumoperitoneum. Numerous surgical clips are again seen in the abdomen. Lower pelvis was not included in the [id number]-[id number]. Clear lung bases and normal bones. IMPRESSION: No evidence of bowel obstruction or pneumoperitoneum. WSN: [id number] Ordering Physician: Justa Singletary Dictated By: Laurel Jerome MD Dictated Date/Time: 03/02/21 10:54 p Reviewed By: Laurel Jerome MD Signed By: Laurel Jerome MD Signed Date/Time: 03/02/21 10:54 pm Transcribed By: VERO Transcribed Date/Time: 03/02/21 10:53 pm Vital Signs Most recent to oldest 1 2 3 [Reference Range]: Height 163 cm 163 cm 163 cm (03/04/21 11:34 AM) (03/04/21 9:29 AM) (03/04/21 7: 08 AM) Weight 75 kg 75 kg (03/04/21 9:29 AM) (03/03/21 2:18 AM) Oxygen Saturation [94-100 95 % 96 % 96 % %] (03/04/21 11:34 AM) (03/04/21 10:46 AM) (03/04/21 1 0:37 AM) Pulse Rate [55-90 bpm] 88 bpm 97 bpm 84 bpm (03/04/21 11:34 AM) *H* (03/04/21 7:08 AM) (03/04/21 9:29 AM) Body Mass Index 28.23 28.23 [18.5-24.99] *H* *H* (03/04/21 9:29 AM) (03/03/21 2:18 AM) Blood Pressure 114/76 mm Hg 107/67 mm Hg 104/67 mm Hg [90-138/55-84 mm Hg] (03/04/21 11:34 AM) (03/04/21 10:46 AM) (03/04 10:37 AM) Respiratory Rate [16-30 18 br/min 18 br/min 18 br/mi n br/min] (03/04/21 11:34 AM) (03/04/21 8:24 AM) (03/04/21 7: 08 AM) Temperature [96.8-100.4 98.4 DegF 98.8 DegF 98.8 Deg F DegF] (03/04/21 11:34 AM) (03/04/21 9:29 AM) (03/04/21 7: 08 AM) Mode of Delivery (Oxygen) Room air Room air Room a ir (03/04/21 11:34 AM) (03/04/21 10:46 AM) (03/04/21 1 0:37 AM) Blood pressure sites Arm, right Arm, right Arm, right (03/04/21 11:34 AM) (03/04/21 10:46 AM) (03/04/21 1 0:37 AM) Temperature Route Oral Temporal Oral (03/04/21 11:34 AM) (03/04/21 9:29 AM) (03/04/21 7: 08 AM) Dry Weight 75 kg (03/03/21 2:18 AM) Weight Obtained Via Patient/family stated (03/03/21 2:18 AM) Dry Weight Obtained Via Patient/family stated (03/03/21 2:18 AM) Social History Social History Type Response Smoking Status Never (less than 100 in life time) entered on: 02/04/19 Sex
--- OUTSIDE RECORDS SUMMARY | 2022-09-28 10:00 | XMS_ITS | Continuity of Care Document ---
:1980 Author Organization [facility] Address [address] [place] [address]- Care Team Providers Name Role Phone Steven BILLINGS, Manuel Flannery Primary Care Physician Encounter [facility] [place] Date(s): 02/04/21 - 02/04/[address] [address]- Discharge Disposition: A-D/C Walkout Attending Physician: Not on Staff, Attending MD Admitting Physician: Not on Staff, Admitting MD Referring Physician: Not on Staff, Referring MD Allergies, Adverse Reactions, Alerts Substance Reaction Severity Status meperidine1 rash Active morphine2 rash Active sulfonamides rash Active trazodone-like drugs Active Toradol itchiness Active Reglan rash Active Zofran3 rash Active Haldol Active Compazine rash Active 1Tolerates cebtilqshmpda0Kqtripybp ockllynxcxhkv5Io states he tolerates zofran when given with benadryl Immunizations Given and Recorded Vaccine Date Status Refusal Reason pneumococcal 23-valent vaccine1 01/21/13 Given diphtheria-tetanus toxoids (DT)2 11/10/10 Given influenza virus vaccine, inactivated3 10/22/10 Given Pneumococcal Vaccine (oldterm) 12/17/07 Given 1Result Comment: lai [id number] Note: VIS GIVEN VIS DATE Note: pt [...] 3:45:25 EDT Start Date: 11/21/18 Status: OrderedtraMADol 100 mg oral tablet 1 tablet = 100 mg, By Mouth, Every 12 hours, PRN as needed for pain, not to exceed 400 mg/day, 0 Refills, Maintenance, 11/07/20 8:49:00 EDT, Tablet, Partial fill upon patient request if the prescription is for a schedule II opioid drug. Start Date: 11/07/20 Status: Ordered Problem List Condition Effective Dates Status Health Status Informant Anxiety(Confirmed) Active Depression(Confirmed) Active Colitis, ulcerative(Confirmed) Active Vital Signs Most recent to oldest [Reference Range]: 1 Oxygen Saturation [94-100 %] 100 % (02/04/21 4:07 AM) Pulse Rate [55-90 bpm] 70 bpm (02/04/21 4:07 AM) Blood Pressure [90-138/55-84 mm Hg] 105/78 mm Hg (02/04/21 4:07 AM) Respiratory Rate [16-30 br/min] 24 br/min (02/04/21 4:07 AM) Temperature [96.8-100.4 DegF] 97.8 DegF (02/04/21 4:07 AM) Mode of Delivery (Oxygen) Room air (02/04/21 4:07 AM) Blood pressure sites Arm, left (02/04/21 4:07 AM) Temperature Route Oral (02/04/21 4:07 AM) Social History Social History Type Response Smoking Status Never (less than 100 in life time) entered on: 02/04/19 Sex
--- OUTSIDE RECORDS SUMMARY | 2022-09-28 10:00 | XMS_ITS | Continuity of Care Document ---
:1980 Author Organization [facility] Address [address] [place] [address]- Care Team Providers Name Role Phone Manuel Harris MD Primary Care Physician Encounter [facility] [place] Date(s): 07/02/21 - 07/02/[address] [address]- Discharge Disposition: A-D/C Home Attending Physician: Alaina Mobley MD Admitting Physician: Alaina Mobley MD Referring Physician: Not on Staff, Referring MD Allergies, Adverse Reactions, Alerts Substance Reaction Severity Status meperidine1 rash Active morphine2 rash Active sulfonamides rash Active trazodone-like drugs Active Toradol itchiness Active Zofran3 rash Active Haldol Active Compazine rash Active Reglan rash Active 1Tolerates jvqwtizafhocp7Gnvjgywip ijkhncfdibyig6Ty states he tolerates zofran when given with benadryl Immunizations Given and Recorded Vaccine Date Status Refusal Reason pneumococcal 23-valent vaccine1 01/21/13 Given diphtheria-tetanus toxoids (DT)2 11/10/10 Given influenza virus vaccine, inactivated3 10/22/10 Given Pneumococcal Vaccine (oldterm) 12/17/07 Given 1Result Comment: lai [id number] Note: VIS GIVEN VIS DATE Note: pt [...] Exam Date Time Procedure Performing Provider Status 07/02/21 9:41 AM Abdomen AP Modesto Reid; Auth (Verified ) Notes:(Abdomen AP) Reason For Exam: abdominal pain;Other:RESULT: XR Abdomen AP XR Abdomen AP 1 view INDICATION/CLINICAL QUESTION: Hx of Present Illness: pt c o abd pain, n v d, bleeding rectally x 3 days. Denies fevers, chills. Believes symptoms are r t chrones flare.; Reason: Other:; abdominal pain;Clinical Question(s): Free Air COMPARISON: 04/21/2021 FINDINGS: Normal bowel gas pattern. No evidence of obstruction. No evidence of pneumoperitoneum on this single supine. No organomegaly, masses or calcifications. No acute bone findings. Multiple surgical clips seen in the left upper quadrant and in the left pelvis. IMPRESSION: Nonobstructive bowel gas pattern. No evidence of free air on this single supine view. I have personally reviewed the images and I agree with this report. WSN: [id number] Ordering Physician: Alaina Mobley Dictated By: Joseph Sotelo DO Dictated Date/Time: 07/02/21 9:56 am Reviewed By: Rodrigue Richardson MD Signed By: Rodrigue Richardson MD Signed Date/Time: 07/02/21 10:01 am Transcribed By: VERO Transcribed Date/Time: 07/02/21 9:44 am Vital Signs Most recent to oldest 1 2 3 [Reference Range]: Oxygen Saturation [94-100 100 % 100 % 100 % %] (07/02/21 10:36 AM) (07/02/21 8:24 AM) (07/02/21 8:20 AM) Pulse Rate [55-90 bpm] 66 bpm 86 bpm 97 bpm (07/02/21 10:36 AM) (07/02/21 8:24 AM) *H* (07/02/21 8:20 A M) Blood Pressure 118/83 mm Hg 115/80 mm Hg [90-138/55-84 mm Hg] (07/02/21 10:36 AM) (07/02/21 8:24 AM) Respiratory Rate [16-30 18 br/min 20 br/min br/min] (07/02/21 10:36 AM) (07/02/21 8:24 AM) Temperature [96.8-100.4 98.8 DegF 98.2 DegF DegF] (07/02/21 10:36 AM) (07/02/21 8:24 AM) Mode of Delivery (Oxygen) Room air Room air Room a ir (07/02/21 10:36 AM) (07/02/21 8:24 AM) (07/02/21 8:20 AM) Blood pressure sites Arm, right Arm, right (07/02/21 10:36 AM) (07/02/21 8:24 AM) Temperature Route Oral Oral (07/02/21 10:36 AM) (07/02/21 8:24 AM) Social History Social History Type Response Smoking Status Never (less than 100 in life time) entered on: 02/04/19 Sex
--- OUTSIDE RECORDS SUMMARY | 2022-09-28 10:00 | XMS_ITS | Continuity of Care Document ---
:1980 Author Organization [facility] Address [address] [place] [address]- Care Team Providers Name Role Phone Manuel Harris MD Primary Care Physician Encounter [facility] Date(s): 07/05/20 - 07/05/[address] [address]- Discharge Disposition: A-D/C Home Attending Physician: Enrique Martínez MD Admitting Physician: Enrique Martínez MD Referring Physician: Not on Staff, Referring MD Allergies, Adverse Reactions, Alerts Substance Reaction Severity Status meperidine1 rash Active morphine2 rash Active sulfonamides rash Active trazodone-like drugs Active Toradol itchiness Active Zofran3 rash Active Haldol Active Compazine rash Active Reglan rash Active 1Tolerates zimphujqkwcva2Nfktoqzlx utzzcsbrfvtsd3Sz states he tolerates zofran when given with benadryl Immunizations Given and Recorded Vaccine Date Status Refusal Reason pneumococcal 23-valent vaccine1 01/21/13 Given diphtheria-tetanus toxoids (DT)2 11/10/10 Given influenza virus vaccine, inactivated3 10/22/10 Given Pneumococcal Vaccine (oldterm) 12/17/07 Given 1Result Comment: lai [id number] Note: VIS GIVEN VIS DATE Note: pt states he received approx 2 months prior to admission Medications clonazePAM 1 mg oral tablet 1 tablet = 1 mg, By Mouth, 2 times a day, PRN as needed Start Date: 01/06/18 Status: Orderedcyanocobalamin 1000 mcg/ml injectable solution = 1,000 mcg, Intramuscular, Every 30 days Start Date: 01/06/18 Status: OrderedDilaudid Inj 1 mg, Injection, IV Push Slowly, Once, STAT, 07/05/20 5:44:00 EST, Stop date 07/05/20 5:44:00 EST Start Date: 07/05/20 Stop Date: 07/05/20 Status: CompletedHumira Pen 40 mg/0.4 mL subcutaneous kit = 40 mg, Subcutaneous Infusion, Every week, 0 Refills, Maintenance, 11/21/18 3:45:25 EDT Start Date: 11/21/18 Status: OrderedoxyCODONE 5 mg oral capsule 2 [...] 0 Refills, Maintenance, 06/22/20 8:34:00 EST, Tablet, [id number], Partial fill upon patient request if [...] Height 165 cm 165 cm 165 cm (07/05/20 6:29 AM) (07/05/20 5:29 AM) (07/05/20 5:28 AM) Weight 76 kg 76 kg 76 kg (07/05/20 6:29 AM) (07/05/20 5:29 AM) (07/05/20 5:28 AM) Oxygen Saturation [94-100 %] 97 % 98 % (07/05/20 5:28 AM) (07/05/20 3:48 AM) Pulse Rate [55-90 bpm] 86 bpm 79 bpm 87 bpm (07/05/20 6:29 AM) (07/05/20 5:28 AM) (07/05/20 3:48 AM) Body Mass Index [18.5-24.99] 27.92 27.92 27. 92 *H* *H* *H* (07/05/20 6:29 AM) (07/05/20 5:29 AM) (07/05/20 5:28 AM) Blood Pressure [90-138/55-84 118/82 mm Hg 112/74 mm Hg 105 /73 mm Hg mm Hg] (07/05/20 6:29 AM) (07/05/20 5:29 AM) (07/05/20 3:48 AM) Respiratory Rate [16-30 16 br/min 16 br/min 16 br/mi n br/min] (07/05/20 6:29 AM) (07/05/20 6:22 AM) (07/05/20 5:52 AM) Temperature [96.8-100.4 97.6 DegF DegF] (07/05/20 3:48 AM) Mode of Delivery (Oxygen) Room air Room air (07/05/20 5:28 AM) (07/05/20 3:48 AM) Blood pressure sites Arm, left Arm, left Arm, left (07/05/20:29 AM) (07/05/20:29 AM) (07/05/20 5:28 AM) Temperature Route Oral (07/05/20 3:48 AM) Dry Weight 76 kg 76 kg 76 kg (07/05/20 6:29 AM) (07/05/20 5:29 AM) (07/05/20 5:28 AM) Social History Social History Type Response Smoking Status Never (less than 100 in life time) entered on: 02/04/19 Sex
--- OUTSIDE RECORDS SUMMARY | 2022-09-28 10:00 | XMS_ITS | Continuity of Care Document ---
:1980 Author Organization [facility] Address [address] [place] [address]- Care Team Providers Name Role Phone Steven BILLINGS, Manuel Flannery Primary Care Physician Encounter [facility] Date(s): 11/23/20 - 11/24/[address] [address]- Discharge Disposition: A-D/C Home Attending Physician: Alaina Mobley MD Admitting Physician: Alaina Mobley MD Referring Physician: Not on Staff, Referring MD Allergies, Adverse Reactions, Alerts Substance Reaction Severity Status meperidine1 rash Active morphine2 rash Active sulfonamides rash Active trazodone-like drugs Active Toradol itchiness Active Zofran3 rash Active Haldol Active Compazine rash Active Reglan rash Active 1Tolerates nnumccycrmnxp1Vblaqkkcr xstrlsyjxwdyw1Fx states he tolerates zofran when given with benadryl Immunizations Given and Recorded Vaccine Date Status Refusal Reason pneumococcal 23-valent vaccine1 01/21/13 Given diphtheria-tetanus toxoids (DT)2 11/10/10 Given influenza virus vaccine, inactivated3 10/22/10 Given Pneumococcal Vaccine (oldterm) 12/17/07 Given 1Result Comment: lai [id number] Note: VIS GIVEN VIS DATE Note: pt [...] Inj 1 mg, Injection, IV Push Slowly, Every 15 minutes for 3 doses/times, PRN for Pain , Moderate, and SBP greater than 100, STAT, 11/23/20 22:49:00 EDT, Stop date Limited # of times Start Date: 11/23/20 Stop Date: 11/24/20 Status: CompletedDilaudid Inj 0.5 mg, Injection, IV Push Slowly, Once, STAT, 11/24/20 2:58:00 EDT, Stop date 11/24/20 2:58:00 EDT Start Date: 11/24/20 Stop Date: 11/24/20 Status: CompletedHumira Pen 40 mg/0.4 mL subcutaneous kit = 40 mg, Subcutaneous Infusion, Every week, 0 Refills, Maintenance, 11/21/18 3:45:25 EDT Start Date: 11/21/18 Status: Orderedpromethazine 25 mg oral tablet 1 tablet = 25 mg, By Mouth, Every 4 hours, PRN for nausea/vomiting, # 60 tablet, 0 Refills, Maintenance, 06/22/20 8:34:00 EST, Tablet, [facility]/pharmacy #[id number], Partial fill upon patient request if the prescription is for a schedule II opioid drug., 165, cm... Start Date: 06/22/20 Status: OrderedtraMADol 100 mg oral tablet 1 [...] Exam Date Time Procedure Performing Provider Status 11/24/20 12:44 AM Abdomen Series W/ PA Chest Meghan Mckay (Verified) Notes:(Abdomen Series W/ PA Chest) Reason For Exam: PainRESULT: Abdomen Series W/ PA Chest Supine and upright views of the abdomen and pelvis with a PA chest dated November 24, 2020. Comparison chest x-ray is from November 07, 2020. HISTORY: Pain. Nausea, vomiting and diarrhea with abdominal distention. FINDINGS: This examination shows a nonobstructed bowel gas pattern. There is some dilute contrast material noted within the abdomen and pelvis from a previous CT. Multiple surgical clips are demonstrated from the previous colonic resection and ileal anal anastomosis. The cardiac silhouette is within normal limits for size. Hilar and mediastinal structures are unremarkable. No airspace infiltrate or pleural effusion is identified. Minimal degenerative changes are noted in the spine and hips. IMPRESSION: No evidence of obstruction or free air. No evidence of acute pulmonary disease. Examination [address]. Thank you for allowing me to participate in the care of this patient. WSN: [id number] Ordering Physician: Alaina Mobley Dictated By: Tamir Montalvo MD Dictated Date/Time: 11/24/20 7:52 am Reviewed By: Tamir Montalvo MD Signed By: Tamir Montalvo MD Signed Date/Time: 11/24/20 7:52 am Transcribed By: VERO Transcribed Date/Time: 11/24/20 7:48 am Vital Signs Most recent to oldest 1 2 3 [Reference Range]: Oxygen Saturation [94-100 %] 100 % 99 % 99 % (11/24/20 5:14 AM) (11/23/20 11:29 PM) (11/23/20 8: 16 PM) Pulse Rate [55-90 bpm] 65 bpm 77 bpm 86 bpm (11/24/20 5:14 AM) (11/23/20 11:29 PM) (11/23/20 8: 16 PM) Blood Pressure [90-138/55-84 127/75 mm Hg 138/86 mm Hg 117 /65 mm Hg mm Hg] (11/24/20 5:14 AM) (11/23/20 11:29 PM) (11/23/20 8: 16 PM) Respiratory Rate [16-30 18 br/min 18 br/min 18 br/mi n br/min] (11/24/20 5:14 AM) (11/24/20 3:09 AM) (11/24/20 1:5 3 AM) Temperature [96.8-100.4 DegF] 97.9 DegF 98.2 DegF (11/23/20 11:29 PM) (11/23/20 8:16 PM) Mode of Delivery (Oxygen) Room air Room air Room a ir (11/24/20 5:14 AM) (11/23/20 11:29 PM) (11/23/20 8: 16 PM) Blood pressure sites Arm, left Arm, right Arm, right (11/24/20 5:14 AM) (11/23/20 11:29 PM) (11/23/20 8: 16 PM) Temperature Route Oral Oral (11/23/20 11:29 PM) (11/23/20 8:16 PM) Social History Social History Type Response Smoking Status Never (less than 100 in life time) entered on: 02/04/19 Sex
--- OUTSIDE RECORDS SUMMARY | 2022-09-28 10:00 | XMS_ITS | Continuity of Care Document ---
:1980 Author Organization [facility] Address [address] [place] [address]- Care Team Providers Name Role Phone Steven BILLINGS, Manuel Flannery Primary Care Phys[id number] Date(s): 06/18/20 - 06/18/[address] [address]- Discharge Disposition: A-D/C Home Attending Physician: Mani BILLINGS, Coty Patel Admitting Physician: Coty Singleton MD Referring Physician: Not on Staff, Referring MD Allergies, Adverse Reactions, Alerts Substance Reaction Severity Status morphine1 rash Active Zofran2 rash Active Haldol Active meperidine3 rash Active sulfonamides rash Active trazodone-like drugs Active Toradol itchiness Active Reglan rash Active Compazine rash Active 1Tolerates jualjdhdwzswg3Gv states he tolerates zofran when given with benadryl3 Tolerates hydromorphone Immunizations Given and Recorded Vaccine Date Status Refusal Reason pneumococcal 23-valent vaccine1 01/21/13 Given diphtheria-tetanus toxoids (DT)2 11/10/10 Given influenza virus vaccine, inactivated3 10/22/10 Given Pneumococcal Vaccine (oldterm) 12/17/07 Given 1Result Comment: lai [id number] Note: VIS GIVEN VIS DATE Note: pt [...] mg, Injection, IV Push Slowly, Once, STAT, 06/18/20 11:37:00 EST, Stop date 06/18/20 11:37:00 EST Start Date: 06/18/20 Stop Date: 06/18/20 Status: CompletedHumira Pen 40 mg/0.4 mL subcutaneous kit = 40 mg, Subcutaneous Infusion, Every week, 0 Refills, Maintenance, 11/21/18 3:45:25 EDT Start Date: 11/21/18 Status: OrderedoxyCODONE 5 mg oral tablet 10 mg, Tablet, By Mouth, Once, STAT, 06/18/20 13:19:00 EST, Stop date 06/18/20 13:19:00 EST Start Date: 06/18/20 Stop Date: 06/18/20 Status: CompletedtraMADol 50 mg oral tablet = 100 mg, [...] oldest 1 2 3 [Reference Range]: Height 164 cm (06/18/20 9:54 AM) Weight 75 kg (06/18/20 9:54 AM) Oxygen Saturation [94-100 %] 98 % 98 % 97 % (06/18/20 1:36 PM) (06/18/20 11:44 AM) (06/18/20 9: 54 AM) Pulse Rate [55-90 bpm] 85 bpm 89 bpm 91 bpm (06/18/20 1:36 PM) (06/18/20 11:44 AM) *H* (06/18/20 9:54 AM ) Blood Pressure [90-138/55-84 112/77 mm Hg 118/80 mm Hg 110 /75 mm Hg mm Hg] (06/18/20 1:36 PM) (06/18/20 11:44 AM) (06/18/20 9: 54 AM) Respiratory Rate [16-30 18 br/min 18 br/min 18 br/mi n br/min] (06/18/20 1:36 PM) (06/18/20 1:31 PM) (06/18/20 12: 16 PM) Temperature [96.8-100.4 DegF] 98.2 DegF (06/18/20 9:54 AM) Mode of Delivery (Oxygen) Room air Room air Room a ir (06/18/20 1:36 PM) (06/18/20 11:44 AM) (06/18/20 9: 54 AM) Blood pressure sites Arm, left Arm, left Arm, left (06/18/20 1:36 PM) (06/18/20 11:44 AM) (06/18/20 9: 54 AM) Temperature Route Oral (06/18/20 9:54 AM) Dry Weight 75 kg (06/18/20 9:54 AM) Weight Obtained Via Standing scale (06/18/20 9:54 AM) Social History Social History Type Response Smoking Status Never (less than 100 in life time) entered on: 02/04/19 Sex
--- OUTSIDE RECORDS SUMMARY | 2022-09-28 10:00 | XMS_ITS | Continuity of Care Document ---
:1980 Author Organization [facility] Address [address] [place] [address]- Care Team Providers Name Role Phone Steven BILLINGS, Manuel Flannery Primary Care Physician [phone] [id number] Date(s): 11/26/19 - 11/26/[address] [address]- [facility] Discharge Disposition: A-D/C Home Attending Physician: Herber Ferrer MD Admitting Physician: Herber Ferrer MD Referring Physician: Not on Staff, Referring MD Allergies, Adverse Reactions, Alerts Substance Reaction Severity Status meperidine1 rash Active morphine2 rash Active sulfonamides rash Active trazodone-like drugs Active Toradol itchiness Active Zofran3 rash Active Haldol Active Compazine rash Active Reglan rash Active 1Tolerates ajoykhsnahmft7Ahyzvzkkb kmzlslclgbknq5Jh states he tolerates zofran when given with benadryl Immunizations Given and Recorded Vaccine Date Status Refusal Reason pneumococcal 23-valent vaccine1 01/21/13 Given diphtheria-tetanus toxoids (DT)2 11/10/10 Given influenza virus vaccine, inactivated3 10/22/10 Given Pneumococcal Vaccine (oldterm) 12/17/07 Given 1Result Comment: w [id number] Note: VIS GIVEN VIS DATE Note: pt states he received approx 2 months prior to admission Medications clonazePAM 1 mg oral tablet TAKE 1 TABLET BY MOUTH TWICE A DAY NEEDED Start Date: 01/06/18 Status: Orderedcyanocobalamin 1000 mcg/ml injectable solution INJECT 1 ML (1,000 MCG TOTAL) UNDER THE SKIN EVERY 30 DAYS. INJECT DIRECTED Start Date: 01/06/18 Status: Orderedergocalciferol 97947 iu oral capsule TAKE 1 CAPSULE (50,000 [...] THE AFFECTED AREA(S) Start Date: 01/06/18 Status: OrderedoxyCODONE 10 mg oral tablet 1 tablet = 10 mg, By Mouth, Every 6 hours, PRN as needed for pain, # 8 tablet, 0 Refills, Acute 11/29/19 21:02:00 EDT, 11/26/19 21:02:00 EDT, Tablet, Partial fill upon patient request, 166, cm, 11/26/19 20:37:00 EDT, Height, 73.5, kg, 11/26/19 20:37:0... Start Date: 11/26/19 Stop Date: 11/29/19 Status: OrderedoxyCODONE 10 mg oral tablet 1 tablet = 10 mg, By Mouth, Every 6 hours, PRN as needed for pain, # 8 tablet, 0 Refills, Acute 11/29/19 21:15:00 EDT, 11/26/19 21:05:00 EDT, Tablet, Partial fill upon patient request Start Date: 11/26/19 Stop Date: 11/29/19 Status: Orderedpromethazine 12.5 mg oral tablet 1 tablet = 12.5 mg, By Mouth, Every 6 hours, PRN for nausea/vomiting, # 14 tablet, 0 Refills, Acute 09/14/20 13:28:00 EST, 09/14/19 13:27:00 EST, Tablet, [facility]/pharmacy #[id number], 165, cm, 09/14/19 10:16:00 [...] oldest 1 2 3 [Reference Range]: Height 166 cm 166 cm 166 cm (11/26/19 8:37 PM) (11/26/19 7:36 PM) (11/26/19 7:0 4 PM) Weight 73.5 kg 73.5 kg 73.5 kg (11/26/19 8:37 PM) (11/26/19 7:36 PM) (11/26/19 7:0 4 PM) Oxygen Saturation [94-100 95 % 95 % 97 % %] (11/26/19 8:37 PM) (11/26/19 7:36 PM) (11/26/19 7:0 4 PM) Pulse Rate [55-90 bpm] 105 bpm 108 bpm 108 bpm *H* *H* *H* (11/26/19 8:37 PM) (11/26/19 7:36 PM) (11/26/19 7:0 4 PM) Body Mass Index 26.67 26.67 [18.5-24.99] *H* *H* (11/26/19 8:37 PM) (11/26/19 7:36 PM) Blood Pressure 119/76 mm Hg 120/80 mm Hg 115/85 mm Hg [90-138/55-84 mm Hg] (11/26/19 8:37 PM) (11/26/19 7:36 PM) ( 0 7:04 PM) Respiratory Rate [16-30 17 br/min 17 br/min 17 br/mi n br/min] (11/26/19 9:08 PM) (11/26/19 8:38 PM) (11/26/19 8:3 7 PM) Temperature [96.8-100.4 98.2 DegF DegF] (11/26/19 7:04 PM) Temperature Route Oral (11/26/19 7:04 PM) Dry Weight 73.5 kg 73.5 kg 73.5 kg (11/26/19 8:37 PM) (11/26/19 7:36 PM) (11/26/19 7:0 4 PM) Dry Weight Obtained Via Patient/family stated (11/26/19 7:04 PM) Social History Social History Type Response Smoking Status Never (less than 100 in life time) entered on: 02/04/19 Sex
--- OUTSIDE RECORDS SUMMARY | 2022-09-28 10:00 | XMS_ITS | Continuity of Care Document ---
:1980 Author Organization [facility] Address [address] [place] [address]- Care Team Providers Name Role Phone Steven BILLINGS, Manuel Flannery Primary Care Physician [place] [facility] 04/15[place] - 04/15/[address] [address]- Discharge Disposition: A-D/C Walkout Attending Physician: Not on Staff, Attending MD Admitting Physician: Not on Staff, Admitting MD Referring Physician: Not on Staff, Referring MD Allergies, Adverse Reactions, Alerts Substance Reaction Severity Status meperidine1 rash Active trazodone-like drugs Active Zofran2 rash Active Haldol Active morphine3 rash Active sulfonamides rash Active Toradol itchiness Active Reglan rash Active Compazine rash Active 1Tolerates mqoyudihgkdir6Kf states he tolerates zofran when given with benadryl3 Tolerates hydromorphone Immunizations Given and Recorded Vaccine Date Status Refusal Reason pneumococcal 23-valent vaccine1 01/21/13 Given diphtheria-tetanus toxoids (DT)2 11/10/10 Given influenza virus vaccine, inactivated3 10/22/10 Given Pneumococcal Vaccine (oldterm) 12/17/07 Given 1Result Comment: lai [id number] Note: VIS GIVEN VIS DATE Note: pt [...]
--- OUTSIDE RECORDS SUMMARY | 2022-09-28 10:00 | XMS_ITS ---
:1980 Author Care Team Providers Name Role Phone DAYO HANSEN MD Primary Care Provider [phone] Allergies Code Code System Name Reaction Severity Status Onset NKDA ? Medications Name Status Start Date Stop Date ? ? clonazepam Active ? Not available clonazepam 1 mg tablet Active ? Not avail able TOME MARISABEL TABLETA DOS VECES AL D A CUANDO SEA NECESARIO erythromycin 5 mg/gram (0.5 %) eye ointment Active ? Not available Humira Active ? Not available Humira(CF) Pen 40 mg/0.4 mL subcutaneous kit Active ? Not available hydrocortisone 1 % topical cream Active ? Not available APLIQUE AL CHRISTIANO AFECTADA DOS VECES AL D A loratadine 10 mg tablet Active ? Not avai lable TOME MARISABEL TABLETA TODOS LOS D CUANDO SEA NECESARIO mesalamine 1,000 mg rectal suppository Active ? Not available INSERT ONE SUPPOSITORY RECTALLY AT BEDTIME Paxlovid 300 mg (150 mg x 2)-100 mg tablets in a dose pack (EUA) Active ? Not available TAKE 3 TABLETS TWICE A DAY BY ORAL ROUTE FOR 5 DAYS. tramadol 50 mg tablet Active ? Not availa ble TAKE 1 TABLET EVERY 12 HOURS ONLY NEEDED Problems None recorded. Procedures None recorded. Results Lab Results Date Name Specimen Result Interpretation Description Value Range Status Address ? 03/01/2022 Visual Acuity* ? R Eye Uncorrected 20/20 ? ? [facility]: [address] [facility] ? ? ? L Eye Uncorrected 20/20 -1 ? ? [facility]: [address] [facility] ? ? ? Both Eyes 20/25 ? ? [facility] U cc Uncorrected [facility]: [address] [facility] Past Encounters Encounter Date Diagnosis Provider 03/01/2022 Red Left Eye; [facility]: [address] [facility], Upper Eyelid of Left Eye [place] [phone], Ph. Social History None recorded. Vaccine List Vaccine Type COVID-19, mRNA, LNP-S, PF, 100 mcg/0.5 m L dose (Moderna) 11/30/2020?0.5 ML 12/28/2020?0.5 ML 07/07/2021?0.25 ML Hep A, adult 02/23/2022?1 ML Hep B, adolescent or pediatric 03/08/2001?0.5 ML 11/02/2001?0.5 ML Hep B, adult 02/23/2022?1 ML influenza, injectable, quadrivalent, pre servative free 03/13/2016?0.5 ML 03/31/2017?0.5 ML 04/06/2018?0.5 ML 03/05/2019?0.5 ML 03/19/2020?0.5 ML 03/18/2021?0.5 ML influenza, split (incl. purified surface antigen) 08/02/2012?0.5 ML pneumococcal conjugate PCV 13 01/11/2018?0.5 ML pneumococcal polysaccharide PPV23 05/11/2012?0.5 ML 04/04/2018?0.5 ML Td (adult), adsorbed 03/08/2001?0.5 ML Tdap 05/11/2012?0.5 ML 01/11/2018?0.5 ML Plan of Care Reminders Provider Appointments None recorded. ? ? Lab None recorded. ? ? Referral None recorded. ? ? Procedures None recorded. ? ? Surgeries None recorded. ? ? Imaging None recorded. ? ? Vitals Blood Pressure 118/79 mm[Hg]
--- OUTSIDE RECORDS SUMMARY | 2022-09-28 10:00 | XMS_ITS | Continuity of Care Document ---
:1980 Author Organization [facility] Address [address] [place] [address]- Care Team Providers Name Role Phone Steven BILLINGS, Manuel Flannery Primary Care Physician [id number] Date(s): 06/16/21 - 06/16/[address] [address]- Discharge Disposition: A-D/C Walkout Attending Physician: Not on Staff, Attending MD Admitting Physician: Not on Staff, Admitting MD Referring Physician: Not on Staff, Referring MD Allergies, Adverse Reactions, Alerts Substance Reaction Severity Status Haldol Active meperidine1 rash Active morphine2 rash Active sulfonamides rash Active trazodone-like drugs Active Toradol itchiness Active Zofran3 rash Active Reglan rash Active Compazine rash Active 1Tolerates bvwctqbfwsgso3Byrrvxxql femgnsdwolfjl7Li states he tolerates zofran when given with benadryl Immunizations Given and Recorded Vaccine Date Status Refusal Reason pneumococcal 23-valent vaccine1 01/21/13 Given diphtheria-tetanus toxoids (DT)2 11/10/10 Given influenza virus vaccine, inactivated3 10/22/10 Given Pneumococcal Vaccine (oldterm) 12/17/07 Given 1Result Comment: lai [id number] Note: VIS GIVEN VIS DATE Note: pt [...] [Reference Range]: 1 Oxygen Saturation [94-100 %] 99 % (06/16/21 3:29 AM) Pulse Rate [55-90 bpm] 71 bpm (06/16/21 3:29 AM) Blood Pressure [90-138/55-84 mm Hg] 108/75 mm Hg (06/16/21 3:29 AM) Respiratory Rate [16-30 br/min] 18 br/min (06/16/21 3:29 AM) Temperature [96.8-100.4 DegF] 97.6 DegF (06/16/21 3:29 AM) Mode of Delivery (Oxygen) Room air (06/16/21 3:29 AM) Blood pressure sites Arm, left (06/16/21 3:29 AM) Temperature Route Oral (06/16/21 3:29 AM) Social History Social History Type Response Smoking Status Never (less than 100 in life time) entered on: 02/04/19 Sex
--- OUTSIDE RECORDS SUMMARY | 2022-09-28 10:00 | XMS_ITS | Continuity of Care Document ---
:1980 Author Organization [facility] Address [address] [place] [address]- Care Team Providers Name Role Phone Manuel Harris MD Primary Care Physician Encounter [facility] Date(s): 10/28/21 - 10/28/[address] [address]- Discharge Disposition: A-D/C Walkout Attending Physician: Not on Staff, Attending MD Admitting Physician: Not on Staff, Admitting MD Referring Physician: Not on Staff, Referring MD Allergies, Adverse Reactions, Alerts Substance Reaction Severity Status Haldol Active meperidine1 rash Active morphine2 rash Active sulfonamides rash Active trazodone-like drugs Active Toradol itchiness Active Zofran3 rash Active Compazine rash Active Reglan rash Active 1Tolerates zngmxkqprrtvv1Qedqfdwcx yvrmcmseabywm5Xa states he tolerates zofran when given with benadryl Immunizations Given and Recorded Vaccine Date Status Refusal Reason pneumococcal 23-valent vaccine1 01/21/13 Given diphtheria-tetanus toxoids (DT)2 11/10/10 Given influenza virus vaccine, inactivated3 10/22/10 Given Pneumococcal Vaccine (oldterm) 12/17/07 Given 1Result Comment: lai [id number] Note: VIS GIVEN VIS DATE Note: pt [...] II opioid drug. Start Date: 03/03/21 Status: OrderedoxyCODONE 10 mg oral tablet 1 tablet = 10 mg, By Mouth, Every 4 hours, PRN Pain , Severe, 0 Refills, Maintenance, 09/24/21 14:35:00 EDT, Tablet, Partial fill upon patient request if the prescription is for a schedule II opioid drug. Start Date: 09/24/21 Status: Ordered Problem List Condition Effective Dates Status Health Status Informant Anxiety(Confirmed) Active Depression(Confirmed) Active Colitis, ulcerative(Confirmed) Active Vital Signs Most recent to oldest [Reference Range]: 1 2 Height 165 cm 165 cm (10/28/21 2:50 PM) (10/28/21 2:49 PM) Weight 73.7 kg 73.7 kg (10/28/21 2:50 PM) (10/28/21 2:49 PM) Oxygen Saturation [94-100 %] 100 % (10/28/21 2:49 PM) Pulse Rate [55-90 bpm] 72 bpm (10/28/21 2:49 PM) Body Mass Index [18.5-24.99] 27.07 *H* (10/28/21 2:49 PM) Blood Pressure [90-138/55-84 mm Hg] 128/110 mm Hg (10/28/21 2:49 PM) Respiratory Rate [16-30 br/min] 18 br/min (10/28/21 2:49 PM) Temperature [96.8-100.4 DegF] 97.8 DegF (10/28/21 2:49 PM) Mode of Delivery (Oxygen) Room air (10/28/21 2:49 PM) Blood pressure sites Arm, left (10/28/21 2:49 PM) Temperature Route Temporal (10/28/21 2:49 PM) Dry Weight 73.7 kg 73.7 kg (10/28/21 2:50 PM) (10/28/21 2:49 PM) Weight Obtained Via Standing scale (10/28/21 2:49 PM) Dry Weight Obtained Via Standing scale (10/28/21 2:49 PM) Social History Social History Type Response Smoking Status Never (less than 100 in life time) entered on: 02/04/19 Sex
--- OUTSIDE RECORDS SUMMARY | 2022-09-28 10:00 | XMS_ITS | Continuity of Care Document ---
:1980 Author Organization [facility] Address [address] [place] [address]- Care Team Providers Name Role Phone Steven BILLINGS, Manuel Flannery Primary Care Physician Encounter [facility] Date(s): 03/20/20 - 03/20/[address] [address]- [facility] Encounter Diagnosis Acute exacerbation of chronic abdominal pain (Final) - 03/20/20 Discharge Disposition: A-D/C Home Attending Physician: Marlon Ramirez MD Admitting Physician: Marlon Ramirez MD Referring Physician: Not on Staff, Referring MD Allergies, Adverse Reactions, Alerts Substance Reaction Severity Status meperidine1 rash Active morphine2 rash Active sulfonamides rash Active trazodone-like drugs Active Toradol itchiness Active Zofran3 rash Active Haldol Active Compazine rash Active Reglan rash Active 1Tolerates gxtmfcvrvdmec3Jvefzpwpw mmazfufsqecrw3Ke states he tolerates zofran when given with benadryl Immunizations Given and Recorded Vaccine Date Status Refusal Reason pneumococcal 23-valent vaccine1 01/21/13 Given diphtheria-tetanus toxoids (DT)2 11/10/10 Given influenza virus vaccine, inactivated3 10/22/10 Given Pneumococcal Vaccine (oldterm) 12/17/07 Given 1Result Comment: w [id number] Note: VIS GIVEN VIS DATE Note: pt states he received approx 2 months prior to admission Medications acetaminophen-oxyCODONE 325 mg-5 mg oral tablet 2, tablet, By Mouth, Every 6 hours, PRN, # 8 tablet, Refills 0, Tot. Refills 0, Maintenance, for pain, 03/09/20 21:40:00 EDT, Route to Pharmacy Electronically, [facility]/pharmacy #[id number] Tablet, Partial fill upon patient request, 160, cm, 03/09/20 19:33:00 ED... Start Date: 03/09/20 Status: OrderedclonazePAM [...] EDT, Tablet Start Date: 02/09/20 Status: Orderedergocalciferol 01096 iu oral capsule 50,000 International_Units, 1, capsule, [...] 09/14/20 13:28:00 EST, 09/14/19 13:27:00 EST, Tablet, [facility]/pharmacy #[id number], 165, cm, 09/14/19 10:16:00 EST, Height, 74.4, kg, 09/14/19 10:16:00 EST, Dry... Start Date: 09/14/19 Stop Date: 09/14/20 Status: Orderedpromethazine 50 mg rectal suppository 1 supp = 50 mg, Rectally, Every 6 hours, PRN for nausea/vomiting, # 12 supp, 0 Refills, Maintenance,01/04/20 18:23:00 EDT, Suppository, [facility]/pharmacy #[id number], 165, cm, 01/04/20 16:36:00 EDT, Height, [...] Vital Signs Most recent to oldest [Reference 1 2 3 Range]: Height 164 cm 164 cm 164 cm (03/20/20 7:30 PM) (03/20/20 6:38 PM) (03/20/20 6:20 P M) Weight 75 kg 75 kg 75 kg (03/20/20 7:30 PM) (03/20/20 6:38 PM) (03/20/20 6:20 P M) Oxygen Saturation [94-100 %] 96 % 98 % 98 % (03/20/20 7:30 PM) (03/20/20 6:38 PM) (03/20/20 6:20 P M) Pulse Rate [55-90 bpm] 79 bpm 89 bpm 91 bpm (03/20/20 7:30 PM) (03/20/20 6:38 PM) *H* (03/20/20 6:20 PM) Body Mass Index [18.5-24.99] 27.89 27.89 27. 89 *H* *H* *H* (03/20/20 7:30 PM) (03/20/20 6:38 PM) (03/20/20 6:20 P M) Blood Pressure [90-138/55-84 mm 112/77 mm Hg 115/69 mm Hg 100/71 mm Hg Hg] (03/20/20 7:30 PM) (03/20/20 6:38 PM) (03/20/20 6:20 P M) Respiratory Rate [16-30 br/min] 16 br/min 16 br/min 18 br/min (03/20/20 7:30 PM) (03/20/20 7:29 PM) (03/20/20 6:38 P M) Temperature [96.8-100.4 DegF] 98.8 DegF (03/20/20 1:23 PM) Mode of Delivery (Oxygen) Room air Room air Room a ir (03/20/20 7:30 PM) (03/20/20 6:38 PM) (03/20/20 6:20 P M) Blood pressure sites Arm, right Arm, right Arm, right (03/20/20 7:30 PM) (03/20/20 6:38 PM) (03/20/20 6:20 P M) Temperature Route Oral (03/20/20 1:23 PM) Dry Weight 75 kg 75 kg 75 kg (03/20/20 7:30 PM) (03/20/20 6:38 PM) (03/20/20 6:20 P M) Social History Social History Type Response Smoking Status Never (less than 100 in life time) entered on: 02/04/19 Sex
[2022-09-28 10:32] LABS: Appearance Urine Clear; Color Urine Yellow; Glucose Urine UA Negative (Negative); Leukocyte Esterase Urine Negative (Negative); Nitrite Urine Negative (Negative); Specific Gravity - Urine 1.025 (1.005-1.025); Urine Blood Negative (Negative); Urine Ketones Negative (Negative); Urine Protein Negative (Neg-Trace)
[2022-09-28 11:52] VITALS: BP 112/80; PULSE 84; RESP 17; O2SAT 98
[2022-09-28 12:28] VITALS: BP 122/77; PULSE 67; RESP 18; TEMP 36.6; O2SAT 98
== END 2022-09-28 12:32 | disposition home or self-care (01) ==
PROVIDERS: Physician Assistant Medical; Emergency Provider Emergency Medicine
DX: K59.00 Constipation, unspecified (principal); R10.9 Unspecified abdominal pain; K51.90 Ulcerative colitis, unspecified, without complications; Z20.822 Contact with and (suspected) exposure to COVID-19
CPT/HCPCS: 0241U; 36415; 71045; 74177; 80053; 81003; 83690; 83735; 85025; 85610; 96361; 96374; 96375; 96376; 99284; J1170; J2550; Q9967

== ENCOUNTER 2022-11-02 07:55 | Emergency (ER) | payer OTHER, SELFPAY ==
[2022-11-02] VITALS (7 sets, daily range): BP systolic 103–111; BP diastolic 66–83; PULSE 70–97; RESP 16–18; TEMP 36.7–37; O2SAT 98–99; BMI 26.6
--- NOTE | ~2022-11-02 | XR_ITS ---
EXAMINATION: XR ABDOMEN WITH DECUBITUS VIEWS CLINICAL INDICATION: Abdominal pain. COMPARISON: CT abdomen/pelvis 09/28/2022. TECHNIQUE: Upright and supine views of the abdomen. FINDINGS: Nonobstructive bowel gas pattern. Mild degree of stool burden. No free air. Surgical anastomosis at the level of the rectosigmoid junction and cecum. Multiple surgical clips scattered along the abdomen. Right upper quadrant cholecystectomy surgical clips. No acute osseous abnormalities. The included portions of the lower lungs are clear. XR/XR abdomen w decubitus IMPRESSION: 1. Nonobstructive bowel gas pattern. 2. Mild degree of stool burden.
[2022-11-02 08:50] LABS: MANUAL DIFF FLAG NO
[2022-11-02 08:54] LABS: Basophils Percent Auto 0.5 % (0-2); Eosinophils Absolute Auto 0.1 X10*3/uL (0.0-0.4); Eosinophils Percent Auto 1.7 % (0-4); Hemoglobin 14.5 g/dl (14.0-18.0); Imm Gran Abs Auto 0.02 X10*3/uL (0.00-0.03); Imm Gran Pct Auto 0.3 % (0.0-0.4); Lymphocytes Absolute Auto 1.3 X10*3/uL (1.2-4.9); Mean Corpuscular HGB Conc 34.5 g/dl (31.0-36.0); Mean Corpuscular Hemoglobin 31.5 pg (27.0-33.0); Mean Corpuscular Volume 91.1 fL (80.0-98.0); Mean Platelet Volume 10.3 fL (9.4-12.4); Monocytes Absolute Auto 0.5 X10*3/uL (0.1-1.2); Monocytes Percent Auto 7.1 % (2-11); Neutrophils Absolute Auto 4.6 x10*3/uL (2.0-8.3); Neutrophils Percent Auto 70.4 % (45-73); Platelet Count 157 X10*3/uL (160-400); Red Blood Count 4.61 X10*6/uL (4.60-5.80); Red Cell Distribution Width 12.5 % (11.0-16.0); White Blood Count 6.5 X10*3/uL (4.8-10.8)
[2022-11-02] MEDS: HYDROmorphone HCl 0.5 MG/0.5 ML SYRINGE IVPUSH (08:56)
[2022-11-02] MEDS: 0.9 % Sodium Chloride 1,000 ML 999 ML IVCONT (08:56)
--- NOTE | 2022-11-02 09:02 | ED.GENADULT ---
HPI - General Adult General Chief complaint: General Medical Stated complaint: abd pain Time Seen by Provider: 11/02/22 08:11 Source: patient and RN notes reviewed Mode of arrival: ambulatory Limitations: no limitations History of Present Illness HPI narrative: This is a 42-year-old with past medical history of ulcerative colitis status post colectomy and J-pouch in 2006 at [facility] with subsequent diagnosis of Crohn's disease, who presents to the emergency department today with worsening abdominal pain and vomiting x 2 days. He states that he has been unable to tolerate PO in the last 2 days as he is just vomiting it back up. He reports some diarrhea, but this is his baseline and is unchanged. Pt recently started budesonide 1 week ago and has had these symptoms since. He was seen by [facility] on 10/20, and was started on budesenide and is supposed to have an endoscopy/colonoscopy, but has not received a phone call back for scheduling. He states that he also was previously on humira but has had difficulty filling this at the pharmacy as his provider has not sent it over. Denies fevers, chills, headache, dizziness, dysuria, hematuria. MD complaint: Abdominal pain, vomiting Onset (ago): day(s) Severity: severe Severity scale (1-10): 9 Quality: burning and aching Pain Consistency: constant Relieving factors: none Exacerbating factors: none Associated symptoms: nausea/vomiting Treatments prior to arrival: none Related Data Home Medications Medication Instructions Recorded Confirmed adalimumab 40 mg/0.4 mL 40 mg subcut TH@0900 08/19/21 06/11/22 subcutaneous pen kit (Humira(CF) Pen) clonazepam 1 mg tablet 1 tab PO BID PRN Anxiety 08/19/21 06/11/22 loratadine 10 mg tablet 1 tab PO DAILY PRN Allergy Symptoms 08/19/21 06/11/22 omeprazole 20 mg capsule,delayed 2 cap PO DAILY@0630 08/19/21 06/11/22 release zolpidem 10 mg tablet 1 tab PO BEDTIME 08/19/21 06/11/22 hydrocortisone 1 % topical cream 1 appl topical BID PRN Itching 09/18/21 06/11/22 multivitamin with folic acid 400 1 tab PO DAILY 06/11/22 06/11/22 mcg tablet (Daily-Davis (with folic acid)) Previous Rx's Medication Instructions Recorded tizanidine 4 mg tablet 6 mg PO BEDTIME PRN Muscle Spasm 03/25/22 30 days #135 tabs propranolol 10 mg tablet 10 mg PO BID 90 days #180 tabs 03/26/22 tramadol 50 mg tablet 50 mg PO BID PRN moderate pain 04/17/22 (scale score 5-6) #14 tabs sumatriptan succinate 100 mg tablet 50 - 100 mg PO .COMPLEX PRN 06/14/22 migraine headache 30 days #12 tabs magnesium oxide 400 mg (241.3 mg 400 mg PO BEDTIME 30 days #30 tabs 07/03/22 magnesium) tablet metronidazole 500 mg tablet 500 mg PO BID 7 days #14 tabs 07/14/22 oxycodone 5 mg tablet 5 mg PO Q8H PRN pain #5 tabs 07/14/22 promethazine 25 mg tablet 25 mg PO Q6H PRN nausea and 07/14/22 vomiting #10 tabs topiramate 25 mg tablet 25 - 50 mg PO DAILY 30 days #60 09/14/22 tabs docusate sodium 100 mg capsule 100 mg PO BID PRN Constipation #14 09/28/22 (Colace) caps ondansetron HCl 4 mg tablet 4 mg PO Q8H #14 tabs 09/28/22 polyethylene glycol 3350 17 17 g PO DAILY #119 grams 09/28/22 gram/dose oral powder (Miralax) oxycodone 5 mg capsule 5 mg PO BID PRN severe pain #6 caps 11/02/22 Allergies Allergy/AdvReac Type Severity Reaction Status Date / Time ondansetron [Ondansetron] Allergy Mild HIVES Verified 06/03/22 13:18 Sulfa (Sulfonamide Allergy Mild UNKNOWN Verified 06/03/22 13:18 Antibiotics) ketorolac Allergy Unknown Unknown Verified 06/03/22 13:18 meperidine [Demerol] Allergy Unknown Unknown Verified 06/03/22 13:18 metoclopramide [Reglan] Allergy Unknown Unknown Verified 06/03/22 13:18 morphine [Morphine] Allergy Unknown RASH Verified 06/03/22 13:18 haloperidol [From Haldol] Allergy Anaphylaxis Verified 06/03/22 13:18 ketamine Allergy Unknown Verified 06/03/22 13:18 From REGLAN Allergy Mild PT UNSURE Uncoded 06/03/22 13:18 BUT STATES HE IS ALLERGIC Compro Allergy Unknown Unknown Uncoded 06/03/22 13:18 From COMPAZINE Allergy Unknown ITCHING Uncoded 06/03/22 13:18 From Demerol Allergy Unknown ITCHY HIVES Uncoded 06/03/22 13:18 From Toradol Allergy Unknown UNK Uncoded 06/03/22 13:18 Review of Systems Review of Systems: Constitutional: No Weight loss, No Fever, No Chills, No Night Sweats, No Fatigue, No Malaise ENT/Mouth: No Hearing loss, No Ear Pain, No Nasal Congestion, No Sinus Pain, No Hoarseness, No sore throat, No Rhinorrhea, No Swallowing Difficulty Eyes: No Eye Pain, No Swelling, No Redness, No Foreign Body, No Discharge, No Vision Changes Cardiovascular: No Chest Pain, No SOB, No Dyspnea on Exertion, No Orthopnea, No Edema, No Palpitations Respiratory: No Cough, No Sputum, No Wheezing, No Smoke Exposure, No Dyspnea Gastrointestinal: + Nausea, +Vomiting, +Diarrhea (chronic), No Constipation, + Abdominal pain, No Hematochezia, No Melena Genitourinary: No irregular bleeding, No Dysuria, No Urinary Frequency, No Hematuria, No Urinary Incontinence/retention, No Urgency, No Flank Pain, No Urinary Flow Changes, No Hesitancy Musculoskeletal: No joint pain, No Myalgias, No Joint Swelling Skin: No Skin Lesions, No rash Neuro: No Weakness, No Numbness, No Paresthesias, No Loss of Consciousness, No Dizziness, No Headache Psych: No Anxiety/Panic, No Depression, No SI/HI/AH/VH, No Social Issues, Heme/Lymph: No Bruising, No Bleeding,No Lymphadenopathy Endocrine: No Polyuria, No Polydipsia, No Temperature Intolerance Yes all other systems are reviewed and are negative Constitutional: Constitutional: Reports as per HPI [facility] Past Medical History Medical History Anxiety Cervicalgia Crohn's disease IBD (inflammatory bowel disease) Migraine Partial small bowel obstruction Surgical History History of colostomy reversal History of esophagogastroduodenoscopy (EGD) History of surgery on arm Hx of colonoscopy S/P colostomy Family History Family History Mother HTN (hypertension) Social History Social History Household Members: Spouse Housing: House Do you presently have visiting nurse or other home services: No Alcohol intake: never Patient Tobacco Use Status: Never used Tobacco Smoked in Last 30 Days: No Use of substances other than those prescribed or required for medical reasons: No Advance Directives: No Advance Directives Information Provided: No service: No Current occupational status: disabled Physical Exam ED Vital Signs: Vital Signs - 24 hr 11/02/22 08:26 11/02/22 08:56 11/02/22 09:59 Temperature 98.6 F Pulse Rate 97 Respiratory Rate 18 16 16 Blood Pressure 110/66 Pulse Oximetry 99 Oxygen Delivery Method Room Air 11/02/22 10:46 11/02/22 12:19 11/02/22 12:22 Temperature 98.6 F 98.1 F Pulse Rate 77 70 Respiratory Rate 17 16 16 Blood Pressure 111/77 104/83 Pulse Oximetry 98 98 Oxygen Delivery Method Room Air Room Air 11/02/22 14:17 Temperature 98.0 F Pulse Rate 72 Respiratory Rate 16 Blood Pressure 103/73 Pulse Oximetry 98 Oxygen Delivery Method Room Air BMI result Body Mass Index 26.6 Const General: cooperative, comfortable and no acute distress Orientation/consciousness: patient oriented x3 Limitations: no limitations [facility] Head: Yes normal to inspection, Yes normocephalic and Yes atraumatic Ears: hearing grossly normal bilaterally General nose exam: Normal external nose present Face and sinus: Yes normal facial exam Mouth: Normal oral and palatal mucosa present, oropharynx normal and moist mucous membranes Throat: Yes posterior oropharynx normal Eyes General: appearance normal, both eyes and all related structures Eyelids: Yes eyelids normal Conjunctivae: conjunctivae normal Sclerae: sclerae normal Pupils: Equal, round and reactive pupils present EOM: EOMs intact bilaterally Neck Neck: Yes normal visual inspection, Yes full ROM and Yes no lymphadenopathy Lymphatic: no lymphadenopathy noted Chest Chest palpation & inspection: normal inspection of the chest Resp Effort & Inspection: normal respiratory effort and able to speak in complete sentences Auscultation: clear to auscultation bilaterally, no crackles, no rales, no rhonchi and no wheezes Cardio Rate: regular rate Rhythm: regular rhythm Heart sounds: S1 normal heart sound present and S2 normal heart sound present GI Other: Abdomen is firm and mildly distended, with tenderness throughout the entire abdomen, worse in the right upper quadrant. Inspection: Yes normal to inspection Auscultation: Hypoactive bowel sounds present Skin General skin exam: no rashes or lesions noted Trauma: no lacerations or abrasions Wounds: no wounds Neuro General: patient oriented x3 and moves all extremities Cranial nerves: Yes Equal, round and reactive pupils present Extrem General: Yes normal to inspection Right upper extremity: normal to inspection Left upper extremity: normal to inspection Right lower extremity: normal to inspection Left lower extremity: normal to inspection Medications Administered Discontinued Medications Generic Name Dose Route Start Last Admin Trade Name Freq PRN Reason Stop Dose Admin Clonazepam 1 mg 11/02/22 10:52 11/02/22 11:05 Clonazepam 1 Mg Tablet PO 11/02/22 10:53 1 mg ONCE ONE Administration Hydromorphone HCl 0.5 mg 11/02/22 08:29 11/02/22 08:56 Hydromorphone Hcl 0.5 Mg/0.5 Ml Syringe IVPUSH 11/02/22 08:30 0.5 mg ONCE ONE Administration Protocol Hydromorphone HCl 1 mg 11/02/22 09:26 11/02/22 09:59 Hydromorphone Hcl 1 Mg/Ml Syringe IVPUSH 11/02/22 09:27 1 mg ONCE ONE Administration Protocol Hydromorphone HCl 1 mg 11/02/22 11:54 11/02/22 12:22 Hydromorphone Hcl 1 Mg/Ml Syringe IVPUSH 11/02/22 11:55 1 mg ONCE ONE Administration Protocol Sodium Chloride 1,000 mls @ 999 mls/hr 11/02/22 08:33 11/02/22 10:28 Ns IVCONT 11/02/22 09:33 Infused .Q1H1M ONE Infusion Promethazine HCl 12.5 mg/ 50.5 mls @ 202 mls/hr 11/02/22 08:29 11/02/22 09:45 Sodium Chloride IV 11/02/22 08:30 Infused ONCE ONE Infusion Promethazine HCl 12.5 mg/ 50.5 mls @ 202 mls/hr 11/02/22 09:27 11/02/22 10:28 Sodium Chloride IV 11/02/22 09:28 Infused ONCE ONE Infusion Medical Decision Making Medical Decision Making [facility] Narrative: This is a 42-year-old, with past medical history of ulcerative colitis status post colectomy and J-pouch in 2006 at [facility] with subsequent diagnosis of Crohn's disease, with complaints of acute on chronic abdominal pain x 2 days. Unable to tolerate PO x 2 days, +nausea, vomiting. On examination, patient has firm abdomen with hypoactive bowel sounds with diffuse TTP throughout, more tender in the right upper quadrant. Patient is afebrile, with normal vital signs. Labs reveal no leukocytosis, H&H within normal limits, lipase WNL, normal UA. Abdomen KUB obtained revealing nonobstructive bowel gas pattern, with a mild degree of stool burden. Pt medicated with phenergan and IV dilauded x 3. Patient adamantly declines CT abdomen, despite my thorough discussion and hesitancy of continuing of medication patient's pain without knowing definitively what the source of pain is. I also urged the possibility of admission for intractable abdominal pain, however patient also declines. Patient expressing that he would like to be discharged home with pain medication and for him to follow up with his PCP. I gave him several oxycodone tablets only to be used for severe pain, and educated patient that we do not prescribe or refill narcotics from the ED. Given red flag warnings of when to return to the ER for re-evaluation. Patient understands and agrees with plan. Differential Diagnosis Differential Diagnoses: The differential diagnosis associated with the presentation includes SBO, constipation, crohn's flare, colitis, ischemic bowel, bowel perforation Admission/Observation Consideration of admission/observation: Escalation of care including admission/observation considered Discussed at length that possibility of hospital admission for pain management, however patient adamentally declines. Lab Data [facility] Lab Attestation statement: I reviewed the patient's lab results. 11/02/22 08:44 11/02/22 08:44 Labs: Lab Results 11/02/22 11/02/22 11/02/22 Range/Units 08:44 08:44 08:44 WBC 6.5 (4.8-10.8) X10*3/uL RBC 4.61 (4.60-5.80) X10*6/uL Hgb 14.5 (14.0-18.0) g/dl Hct 42.0 (42.0-52.0) % MCV 91.1 (80.0-98.0) fL MCH 31.5 (27.0-33.0) pg MCHC 34.5 (31.0-36.0) g/dl RDW 12.5 (11.0-16.0) % Plt Count 157 L (160-400) X10*3/uL MPV 10.3 (9.4-12.4) fL Immature Gran % (Auto) 0.3 (0.0-0.4) % Neut % (Auto) 70.4 (45-73) % Lymph % (Auto) 20.0 (20-40) % Tyler % (Auto) 7.1 (2-11) % Eos % (Auto) 1.7 (0-4) % Baso % (Auto) 0.5 (0-2) % Lymph # (Auto) 1.3 (1.2-4.9) X10*3/uL Tyler # (Auto) 0.5 (0.1-1.2) X10*3/uL Eos # (Auto) 0.1 (0.0-0.4) X10*3/uL Baso # (Auto) 0.0 (0.0-0.2) X10*3/uL Abs Immat Gran (auto) 0.02 (0.00-0.03) X10*3/uL Absolute Neuts (auto) 4.6 (2.0-8.3) x10*3/uL Absolute Nucleated RBC 0.000 (0.0-0.012) X10*3/uL Nucleated RBC % (auto) 0.0 (0.0-0.2) /100WBC ESR 9 (0-15) MM/HR Sodium 140 (135-145) mmol/L Potassium 3.7 (3.3-5.1) mmol/L Chloride 108 (96-108) mmol/L Carbon Dioxide 24 (22-29) mmol/L Anion Gap 12 (12-20) BUN 9 (9-16) mg/dL Creatinine 0.74 (0.5-1.4) mg/dL Estim Creat Clear Calc 110.8 Estimated GFR > 60 Random Glucose 98 (60-115) mg/dL Calcium 9.1 (8.4-10.2) mg/dL Magnesium 1.8 (1.6-2.6) mg/dL Total Bilirubin 0.9 (0.0-1.0) mg/dL Direct Bilirubin 0.3 (0.0-0.5) mg/dL AST 23 (5-37) U/L ALT 38 (0-40) U/L Alkaline Phosphatase 69 (39-117) U/L Total Protein 7.0 (6.5-8.0) g/dL Albumin 4.0 (3.5-5.0) g/dL Lipase 31 (8-78) U/L Urine Color Urine Appearance Urine pH (5.0-9.0) Ur Specific Maiden (1.005-1.025) Urine Protein (Neg-Trace) mg/dL Urine Glucose (UA) (Negative) mg/dL Urine Ketones (Negative) mg/dL Urine Blood (Negative) Urine Nitrite (Negative) Ur Leukocyte Esterase (Negative) 11/02/22 Range/Units 10:51 WBC (4.8-10.8) X10*3/uL RBC (4.60-5.80) X10*6/uL Hgb (14.0-18.0) g/dl Hct (42.0-52.0) % MCV (80.0-98.0) fL MCH (27.0-33.0) pg MCHC (31.0-36.0) g/dl RDW (11.0-16.0) % Plt Count (160-400) X10*3/uL MPV (9.4-12.4) fL Immature Gran % (Auto) (0.0-0.4) % Neut % (Auto) (45-73) % Lymph % (Auto) (20-40) % Tyler % (Auto) (2-11) % Eos % (Auto) (0-4) % Baso % (Auto) (0-2) % Lymph # (Auto) (1.2-4.9) X10*3/uL Tyler # (Auto) (0.1-1.2) X10*3/uL Eos # (Auto) (0.0-0.4) X10*3/uL Baso # (Auto) (0.0-0.2) X10*3/uL Abs Immat Gran (auto) (0.00-0.03) X10*3/uL Absolute Neuts (auto) (2.0-8.3) x10*3/uL Absolute Nucleated RBC (0.0-0.012) X10*3/uL Nucleated RBC % (auto) (0.0-0.2) /100WBC ESR (0-15) MM/HR Sodium (135-145) mmol/L Potassium (3.3-5.1) mmol/L Chloride (96-108) mmol/L Carbon Dioxide (22-29) mmol/L Anion Gap (12-20) BUN (9-16) mg/dL Creatinine (0.5-1.4) mg/dL Estim Creat Clear Calc Estimated GFR Random Glucose (60-115) mg/dL Calcium (8.4-10.2) mg/dL Magnesium (1.6-2.6) mg/dL Total Bilirubin (0.0-1.0) mg/dL Direct Bilirubin (0.0-0.5) mg/dL AST (5-37) U/L ALT (0-40) U/L Alkaline Phosphatase (39-117) U/L Total Protein (6.5-8.0) g/dL Albumin (3.5-5.0) g/dL Lipase (8-78) U/L Urine Color Yellow Urine Appearance Clear Urine pH 6.5 (5.0-9.0) Ur Specific Maiden <= 1.005 (1.005-1.025) Urine Protein Negative (Neg-Trace) mg/dL Urine Glucose (UA) Negative (Negative) mg/dL Urine Ketones Negative (Negative) mg/dL Urine Blood Negative (Negative) Urine Nitrite Negative (Negative) Ur Leukocyte Esterase Negative (Negative) Independent Interpretation I performed an independent interpretation of an: Plain X-Ray Radiology Impression Discussion of test interpretation with radiology: I have reviewed the radiologist's reading. Radiologist Impression: EXAMINATION: XR ABDOMEN WITH DECUBITUS VIEWS CLINICAL INDICATION: Abdominal pain.? COMPARISON: CT abdomen/pelvis 09/28/2022.? TECHNIQUE: Upright and supine views of the abdomen. FINDINGS: Nonobstructive bowel gas pattern. Mild degree of stool burden. No free air. Surgical anastomosis at the level of the rectosigmoid junction and cecum. Multiple surgical clips scattered along the abdomen. Right upper quadrant cholecystectomy surgical clips. No acute osseous abnormalities. The included portions of the lower lungs are clear.? XR/XR abdomen w decubitus IMPRESSION: 1.? Nonobstructive bowel gas pattern. 2.? Mild degree of stool burden. ? Dictated By: Yany Plata External Record Review External record reviewed: Inpatient record, Office record, Outpatient record, Prior outpatient labs, Prior outpatient radiology, Primary care record and Outside ED record Prescription Management I considered prescription management with: Pain Medication Critical Care Time Critical Care Time Critical Care Time: Yes Total Critical Care Time: 45 Attestation: I have personally provided critical care time exclusive of time spent on separately billable procedures. Time includes review of lab data, radiology results, discussion with consultants, and monitoring for potential decompensation. Intervention performed as documented. Requiring multiple doses of narcotics, requiring frequent evaluation for pain status. Discharge Plan Discharge Clinical Impression: Abdominal pain Patient Disposition: Home, Self-Care Instructions: Abdominal Pain (ED) Additional Instructions: You refused hospital admission and an abdominal CT scan multiple times today. It is in our best interest to better manage your pain and symptoms but without further images and hospital admission for intractable abdominal pain it is unable to fully care for your condition. We prescribed you a short course of narcotics. This medication should only be taken when your pain is severe. We do not routinely prescribe narcotics from the emergency department. Please be aware that you will not be able to get a refill of this medication from the ER. You need to follow up with your primary care physician as well as your GI specialist for better management of your symptoms. If any new or worsening symptoms occur, please return for re-evaluation. Rechaz? la admisi?n en el hospital y rio tomograf?a computarizada abdominal varias veces hoy. Es de nuestro inter?s manejar mejor sexton dolor y beryl s?ntomas, paulie sin m?s im?genes e ingreso hospitalario por dolor abdominal intratable, no podemos atender sexton condici?n por completo. Le recetamos un curso corto de narc?ticos. Lopez medicamento solo debe tomarse cuando el dolor sea intenso. No recetamos narc?ticos de forma rutinaria en el departamento de emergencias. Tenga en cuenta que no podr? obtener un resurtido de lopez medicamento en la ramón de emergencias. Debe hacer un seguimiento con sexton m?dico de atenci?n primaria y con sexton especialista GI para un mejor control de beryl s?ntomas. Si se presentan s?ntomas nuevos o que empeoran, regrese para rio reevaluaci?n. Prescriptions: New oxycodone 5 mg capsule 5 mg PO BID PRN (Reason: severe pain) Qty: 6 0RF Rx Instructions: Partial Fill upon patient request. No Action tizanidine 4 mg tablet 6 mg PO BEDTIME PRN (Reason: Muscle Spasm) 30 Days Qty: 135 3RF propranolol 10 mg tablet 10 mg PO BID 90 Days Qty: 180 1RF magnesium oxide 400 mg (241.3 mg magnesium) tablet 400 mg PO BEDTIME 30 Days Qty: 30 6RF Rx Instructions: may hold for loose stools topiramate 25 mg tablet 25 - 50 mg PO DAILY 30 Days Qty: 60 6RF hydrocortisone 1 % cream 1 appl topical BID PRN (Reason: Itching) tramadol 50 mg tablet 50 mg PO BID PRN (Reason: moderate pain (scale score 5-6)) Qty: 14 0RF promethazine 25 mg tablet 25 mg PO Q6H PRN (Reason: nausea and vomiting) Qty: 10 0RF metronidazole 500 mg tablet 500 mg PO BID 7 Days Qty: 14 0RF oxycodone 5 mg tablet 5 mg PO Q8H PRN (Reason: pain) Qty: 5 0RF Rx Instructions: Partial Fill upon patient request. docusate sodium [Colace] 100 mg capsule 100 mg PO BID PRN (Reason: Constipation) Qty: 14 0RF polyethylene glycol 3350 [Miralax] 17 gram/dose powder 17 g PO DAILY Qty: 119 0RF ondansetron HCl 4 mg tablet 4 mg PO Q8H Qty: 14 0RF clonazepam 1 mg tablet 1 tab PO BID PRN (Reason: Anxiety) omeprazole 20 mg capsule,delayed release(DR/EC) 2 cap PO DAILY@0630 zolpidem 10 mg tablet 1 tab PO BEDTIME loratadine 10 mg tablet 1 tab PO DAILY PRN (Reason: Allergy Symptoms) Humira(CF) Pen 40 mg/0.4 mL pen injector kit 40 mg subcut TH@0900 multivitamin with folic acid [Daily-Davis (with folic acid)] 400 mcg tablet 1 tab PO DAILY sumatriptan succinate 100 mg tablet 50 - 100 mg PO .COMPLEX PRN (Reason: migraine headache) 30 Days Qty: 12 6RF Rx Instructions: 50 - 100 mg orally at onset of headache, may repeat in 2 hrs PRN; max 2 tabs per day or 4 tabs/week (may take with Ibuprofen) Interventions: ED Discharge Assessment Last Done: 11/02/22 14:24 Discharge Date/Time: 11/02/22 14:25
[2022-11-02 09:06] LABS: Alanine Aminotransferase 38 U/L (0-40); Alkaline Phosphatase 69 U/L (39-117); Anion Gap 12 (12-20); Aspartate Amino Transferase 23 U/L (5-37); Bilirubin Direct 0.3 mg/dL (0.0-0.5); Bilirubin Total 0.9 mg/dL (0.0-1.0); Blood Urea Nitrogen 9 mg/dL (9-16); Calcium 9.1 mg/dL (8.4-10.2); Carbon Dioxide 24 mmol/L (22-29); Chloride 108 mmol/L (96-108); Creatinine Clr Calc Pharmacy 110.8; Estimated Glomerular Filt Rate > 60; Glucose Random 98 mg/dL (60-115); Lipase 31 U/L (8-78); Magnesium 1.8 mg/dL (1.6-2.6); Potassium 3.7 mmol/L (3.3-5.1); Sodium 140 mmol/L (135-145)
[2022-11-02] MEDS: HYDROmorphone HCl 1 MG/ML SYRINGE IVPUSH ×2 (09:59→12:22)
[2022-11-02 10:06] LABS: Erythrocyte Sedimentation Rate 9 MM/HR (0-15)
--- NOTE | 2022-11-02 10:57 | PC.NURSE ---
pt pleasant and cooperative. previously anxious with pain in the right abdomen, nausea, and vomiting. IV line established, labs drawn, medicated per sep. currently resting quietly on stretcher, watching tv in no apparent distress. verbalizes needs. vss. wctm
[2022-11-02 11:04] LABS: Appearance Urine Clear; Color Urine Yellow; Glucose Urine UA Negative (Negative); Leukocyte Esterase Urine Negative (Negative); Nitrite Urine Negative (Negative); PH 6.5 (5.0-9.0); Specific Gravity - Urine <= 1.005 (1.005-1.025); Urine Blood Negative (Negative); Urine Ketones Negative (Negative); Urine Protein Negative (Neg-Trace)
[2022-11-02] MEDS: clonazePAM 1 MG TABLET PO (11:05)
[2022-11-03 15:19] LABS: CRP High Sensitivity 0.6 mg/L
== END 2022-11-02 14:25 | disposition home or self-care (01) ==
PROVIDERS: Physician Assistant Medical; Emergency Provider Emergency Medicine; PCP Internal Medicine
DX: R10.11 Right upper quadrant pain (principal)
CPT/HCPCS: 36415; 74021; 80048; 80076; 81003; 83690; 83735; 85025; 85652; 86141; 96361; 96365; 96367; 96375; 96376; 99284; J1170; J2550

== ENCOUNTER 2022-11-13 07:53 | Emergency (ER) | payer OTHER, SELFPAY ==
--- NOTE | ~2022-11-13 | CT_ITS ---
EXAMINATION: CT ABDOMEN AND PELVIS WITH CONTRAST CLINICAL INFORMATION: Abdominal pain, history of inflammatory bowel disease. COMPARISON: CT scan of the abdomen and pelvis dated 09/28/2022. TECHNIQUE: Multidetector volumetric images were obtained from the superior aspect of the liver through the pubic symphysis following administration 85 mL of Omnipaque 350 intravenous contrast. Sagittal and coronal reformatted images were obtained on the technologist's workstation. Oral contrast: No This CT examination was performed using dose optimization techniques as appropriate, variously including the following: *Automated exposure control *Adjustment of mA and/or kV according to patient size (this includes techniques or standardized protocols for targeted exams where dose is matched to indication/reason for exam; i.e. extremities or head) *Use of iterative reconstruction technique DLP: 489 mGy-cm FINDINGS: LUNG BASES: The visualized lung bases are unremarkable. LIVER, GALLBLADDER, AND BILIARY TREE: No hepatobiliary abnormality. Status post cholecystectomy. PANCREAS: Unremarkable. SPLEEN: Unremarkable. ADRENAL GLANDS: Unremarkable. KIDNEYS AND URETERS: Small nonobstructing intrarenal calculi bilaterally. No hydroureteronephrosis. BLADDER: Unremarkable. GASTROINTESTINAL TRACT: The stomach is unremarkable. Multiple surgical clips are seen in the left upper quadrant. Postsurgical changes are seen in the distal small bowel. The anastomosis is intact. ABDOMINAL WALL: No significant hernia is appreciated. LYMPH NODES: Normal. VASCULAR: Unremarkable. PELVIC VISCERA: Unremarkable. OSSEOUS STRUCTURES: Unremarkable. CT/CT abdomen pelvis w IV con IMPRESSION: 1. Post surgical changes without significant interval change. No acute abnormality. 2. Nonobstructing adrenal calculi bilaterally. Please note this is the fourth CT scan since July 14 of this year for the same diagnosis with negative results.
[2022-11-13 08:08] VITALS: BP 135/80; PULSE 84; RESP 18; TEMP 36.4; O2SAT 98; BMI 27.5
--- NOTE | 2022-11-13 08:20 | ED.ABDPAIN ---
HPI - Abdominal Pain General Chief Complaint: Abdominal Pain Stated Complaint: in pain Time Seen by Provider: 11/13/22 08:12 Source: patient Mode of arrival: ambulatory Limitations: no limitations History of Present Illness HPI narrative: This is a 42 years old male presented to the ED complaining of abdominal pain nausea vomiting for about 2-3 days, he has history of Crohn's disease he had total colectomy with J-pouch MD elicited complaint: abdominal pain Pertinent past history: none Onset (ago): day(s) (2) Pain Consistency: constant Location: diffuse Severity: mild Quality: cramping Exacerbating factors: nothing Relieving factors: nothing Related Data Home Medications Medication Instructions Recorded Confirmed adalimumab 40 mg/0.4 mL 40 mg subcut TH@0900 08/19/21 06/11/22 subcutaneous pen kit (Humira(CF) Pen) clonazepam 1 mg tablet 1 tab PO BID PRN Anxiety 08/19/21 06/11/22 loratadine 10 mg tablet 1 tab PO DAILY PRN Allergy Symptoms 08/19/21 06/11/22 omeprazole 20 mg capsule,delayed 2 cap PO DAILY@0630 08/19/21 06/11/22 release zolpidem 10 mg tablet 1 tab PO BEDTIME 08/19/21 06/11/22 hydrocortisone 1 % topical cream 1 appl topical BID PRN Itching 09/18/21 06/11/22 multivitamin with folic acid 400 1 tab PO DAILY 06/11/22 06/11/22 mcg tablet (Daily-Davis (with folic acid)) Previous Rx's Medication Instructions Recorded tizanidine 4 mg tablet 6 mg PO BEDTIME PRN Muscle Spasm 03/25/22 30 days #135 tabs propranolol 10 mg tablet 10 mg PO BID 90 days #180 tabs 03/26/22 tramadol 50 mg tablet 50 mg PO BID PRN moderate pain 04/17/22 (scale score 5-6) #14 tabs sumatriptan succinate 100 mg tablet 50 - 100 mg PO .COMPLEX PRN 06/14/22 migraine headache 30 days #12 tabs magnesium oxide 400 mg (241.3 mg 400 mg PO BEDTIME 30 days #30 tabs 07/03/22 magnesium) tablet metronidazole 500 mg tablet 500 mg PO BID 7 days #14 tabs 07/14/22 oxycodone 5 mg tablet 5 mg PO Q8H PRN pain #5 tabs 07/14/22 promethazine 25 mg tablet 25 mg PO Q6H PRN nausea and 07/14/22 vomiting #10 tabs topiramate 25 mg tablet 25 - 50 mg PO DAILY 30 days #60 09/14/22 tabs docusate sodium 100 mg capsule 100 mg PO BID PRN Constipation #14 09/28/22 (Colace) caps ondansetron HCl 4 mg tablet 4 mg PO Q8H #14 tabs 09/28/22 polyethylene glycol 3350 17 17 g PO DAILY #119 grams 09/28/22 gram/dose oral powder (Miralax) oxycodone 5 mg capsule 5 mg PO BID PRN severe pain #6 caps 11/02/22 Allergies Allergy/AdvReac Type Severity Reaction Status Date / Time ondansetron [Ondansetron] Allergy Mild HIVES Verified 11/13/22 08:11 Sulfa (Sulfonamide Allergy Mild UNKNOWN Verified 11/13/22 08:11 Antibiotics) ketorolac Allergy Unknown Unknown Verified 11/13/22 08:11 meperidine [Demerol] Allergy Unknown Unknown Verified 11/13/22 08:11 metoclopramide [Reglan] Allergy Unknown Unknown Verified 11/13/22 08:11 morphine [Morphine] Allergy Unknown RASH Verified 11/13/22 08:11 haloperidol [From Haldol] Allergy Anaphylaxis Verified 11/13/22 08:11 ketamine Allergy Unknown Verified 11/13/22 08:11 From REGLAN Allergy Mild PT UNSURE Uncoded 06/03/22 13:18 BUT STATES HE IS ALLERGIC Compro Allergy Unknown Unknown Uncoded 06/03/22 13:18 From COMPAZINE Allergy Unknown ITCHING Uncoded 06/03/22 13:18 From Demerol Allergy Unknown ITCHY HIVES Uncoded 06/03/22 13:18 From Toradol Allergy Unknown UNK Uncoded 06/03/22 13:18 Review of Systems Constitutional: Reports no additional constitutional complaints Cardiovascular: Reports no additional cardiovascular complaints Gastrointestinal: Reports abdominal pain PMFSH Past Medical History Medical History Anxiety Cervicalgia Crohn's disease IBD (inflammatory bowel disease) Migraine Partial small bowel obstruction Surgical History History of colostomy reversal History of esophagogastroduodenoscopy (EGD) History of surgery on arm Hx of colonoscopy S/P colostomy Family History Family History Mother HTN (hypertension) Social History Social History Household Members: Spouse Housing: House Do you presently have visiting nurse or other home services: No Alcohol intake: never Patient Tobacco Use Status: Never used Tobacco Smoked in Last 30 Days: No Use of substances other than those prescribed or required for medical reasons: No Advance Directives: No Advance Directives Information Provided: Yes service: No Current occupational status: disabled Physical Exam ED Vital Signs: Vital Signs - 24 hr 11/13/22 08:08 11/13/22 10:08 11/13/22 12:11 Temperature 97.6 F Pulse Rate 84 73 88 Respiratory Rate 18 16 18 Blood Pressure 135/80 114/76 112/74 Pulse Oximetry 98 97 97 Oxygen Delivery Method Room Air Room Air Room Air BMI result Body Mass Index 27.5 Const General: cooperative Nutritional Appearance: well nourished Orientation/consciousness: patient oriented x3 Limitations: no limitations HENMT Head: Yes normal to inspection Ears: external ears normal Face and sinus: Yes normal facial exam Neck Neck: Yes normal visual inspection Chest Chest palpation & inspection: normal inspection of the chest Resp Effort & Inspection: normal respiratory effort Auscultation: clear to auscultation bilaterally Cardio Jugular venous distension: no JVD Rate: regular rate Rhythm: regular rhythm GI Inspection: Yes normal to inspection Palpation (GI): Soft to palpation and Tenderness to palpation present (GI) (lower abdomen) Auscultation: normal bowel sounds Skin General skin exam: no rashes or lesions noted, elasticity normal and turgor normal Neuro General: patient oriented x3 Extrem General: Yes normal to inspection, Yes full ROM and Yes capillary refill normal Course Reevaluation(s) Reevaluation #1: feels much better ct OK labs ok Time: 12:49 Medical Decision Making Medical Decision Making MDM Narrative: Patient presented with abdominal pain vital signs are stable, CT scan of abdomen and pelvis no pathology, wbc normal Differential Diagnosis Differential Diagnoses: The differential diagnosis associated with the presentation includes colitis/ diverticulitis/sbo Admission/Observation Consideration of admission/observation: Escalation of care including admission/observation considered Lab Data MDM Lab Attestation statement: I reviewed the patient's lab results. 11/13/22 08:33 11/13/22 08:33 Labs: Lab Results 11/13/22 11/13/22 Range/Units 08:33 08:33 WBC 7.0 (4.8-10.8) X10*3/uL RBC 4.47 L (4.60-5.80) X10*6/uL Hgb 14.3 (14.0-18.0) g/dl Hct 41.4 L (42.0-52.0) % MCV 92.6 (80.0-98.0) fL MCH 32.0 (27.0-33.0) pg MCHC 34.5 (31.0-36.0) g/dl RDW 12.9 (11.0-16.0) % Plt Count 184 (160-400) X10*3/uL MPV 10.6 (9.4-12.4) fL Immature Gran % (Auto) 0.3 (0.0-0.4) % Neut % (Auto) 55.2 (45-73) % Lymph % (Auto) 35.1 (20-40) % [place] % (Auto) 8.0 (2-11) % Eos % (Auto) 1.0 (0-4) % Baso % (Auto) 0.4 (0-2) % Lymph # (Auto) 2.5 (1.2-4.9) X10*3/uL [place] # (Auto) 0.6 (0.1-1.2) X10*3/uL Eos # (Auto) 0.1 (0.0-0.4) X10*3/uL Baso # (Auto) 0.0 (0.0-0.2) X10*3/uL Abs Immat Gran (auto) 0.02 (0.00-0.03) X10*3/uL Absolute Neuts (auto) 3.9 (2.0-8.3) x10*3/uL Absolute Nucleated RBC 0.000 (0.0-0.012) X10*3/uL Nucleated RBC % (auto) 0.0 (0.0-0.2) /100WBC Sodium 139 (135-145) mmol/L Potassium 3.9 (3.3-5.1) mmol/L Chloride 105 (96-108) mmol/L Carbon Dioxide 27 (22-29) mmol/L Anion Gap 11 L (12-20) BUN 15 (9-16) mg/dL Creatinine 0.78 (0.5-1.4) mg/dL Estim Creat Clear Calc 114.2 Estimated GFR > 60 Random Glucose 86 (60-115) mg/dL Calcium 9.4 (8.4-10.2) mg/dL Total Bilirubin 1.1 H (0.0-1.0) mg/dL AST 43 H (5-37) U/L ALT 97 H (0-40) U/L Alkaline Phosphatase 61 (39-117) U/L Total Protein 7.2 (6.5-8.0) g/dL Albumin 4.1 (3.5-5.0) g/dL Lipase 23 (8-78) U/L Independent Interpretation I performed an independent interpretation of an: CT Scan Interpretation: no obstruction Radiology Impression Discussion of test interpretation with radiology: I have reviewed the radiologist's reading. Radiologist Impression: ABDOMINAL WALL: No significant hernia is appreciated.? LYMPH NODES: Normal. VASCULAR: Unremarkable. PELVIC VISCERA: Unremarkable.? OSSEOUS STRUCTURES: Unremarkable.? CT/CT abdomen pelvis w IV con IMPRESSION: ? 1. Post surgical changes without significant interval change. No acute abnormality. 2. Nonobstructing adrenal calculi bilaterally.? ? Please note this is the fourth CT scan since July 14 of this year for the same diagnosis with negative results. Dictated By: Yoandy Wallace MD Signed By: <Electronically signed by Yoandy Wallace MD in [place]> 11/13/22 1215 DD/ [id number] External Record Review External record reviewed: Inpatient record Medications Administered Discontinued Medications Generic Name Dose Route Start Last Admin Trade Name Freq PRN Reason Stop Dose Admin Diphenhydramine HCl 25 mg 11/13/22 09:00 11/13/22 09:10 Diphenhydramine Hcl 50 Mg/Ml Vial IVPUSH 11/13/22 09:01 25 mg ONCE ONE Administration Hydromorphone HCl 0.5 mg 11/13/22 09:53 11/13/22 10:06 Hydromorphone Hcl 0.5 Mg/0.5 Ml Syringe IVPUSH 11/13/22 09:54 0.5 mg ONCE ONE Administration Protocol Hydromorphone HCl 0.5 mg 11/13/22 11:28 11/13/22 12:12 Hydromorphone Hcl 0.5 Mg/0.5 Ml Syringe IVPUSH 11/13/22 11:29 0.5 mg ONCE ONE Administration Protocol Sodium Chloride 1,000 mls @ 999 mls/hr 11/13/22 08:30 11/13/22 09:53 Ns IVCONT 11/13/22 09:30 Infused .Q1H1M DULCE MARIA Infusion Iohexol 85 ml 11/13/22 09:54 11/13/22 09:55 Iohexol 350 Mg/Ml 100 Ml Infus..Btl IV 11/13/22 09:55 85 ml ONCE ONE Administration Lorazepam 1 mg 11/13/22 08:19 11/13/22 08:43 Lorazepam 2 Mg/Ml Vial IVPUSH 11/13/22 08:20 Not Given ONCE ONE Metoclopramide HCl 10 mg 11/13/22 08:18 11/13/22 09:10 Metoclopramide Hcl 10 Mg/2 Ml Vial IVPUSH 11/13/22 08:19 10 mg ONCE ONE Administration Discharge Plan Discharge Clinical Impression: Abdominal pain Patient Disposition: Home, Self-Care Instructions: Abdominal Pain (ED) Additional Instructions: Stay on liquid diet today follow-up with you primary care physician on Wednesday return if you worse Prescriptions: No Action tizanidine 4 mg tablet 6 mg PO BEDTIME PRN (Reason: Muscle Spasm) 30 Days Qty: 135 3RF propranolol 10 mg tablet 10 mg PO BID 90 Days Qty: 180 1RF magnesium oxide 400 mg (241.3 mg magnesium) tablet 400 mg PO BEDTIME 30 Days Qty: 30 6RF Rx Instructions: may hold for loose stools topiramate 25 mg tablet 25 - 50 mg PO DAILY 30 Days Qty: 60 6RF hydrocortisone 1 % cream 1 appl topical BID PRN (Reason: Itching) tramadol 50 mg tablet 50 mg PO BID PRN (Reason: moderate pain (scale score 5-6)) Qty: 14 0RF promethazine 25 mg tablet 25 mg PO Q6H PRN (Reason: nausea and vomiting) Qty: 10 0RF metronidazole 500 mg tablet 500 mg PO BID 7 Days Qty: 14 0RF oxycodone 5 mg tablet 5 mg PO Q8H PRN (Reason: pain) Qty: 5 0RF Rx Instructions: Partial Fill upon patient request. docusate sodium [Colace] 100 mg capsule 100 mg PO BID PRN (Reason: Constipation) Qty: 14 0RF polyethylene glycol 3350 [Miralax] 17 gram/dose powder 17 g PO DAILY Qty: 119 0RF ondansetron HCl 4 mg tablet 4 mg PO Q8H Qty: 14 0RF clonazepam 1 mg tablet 1 tab PO BID PRN (Reason: Anxiety) omeprazole 20 mg capsule,delayed release(DR/EC) 2 cap PO DAILY@0630 zolpidem 10 mg tablet 1 tab PO BEDTIME loratadine 10 mg tablet 1 tab PO DAILY PRN (Reason: Allergy Symptoms) Humira(CF) Pen 40 mg/0.4 mL pen injector kit 40 mg subcut TH@0900 multivitamin with folic acid [Daily-Davis (with folic acid)] 400 mcg tablet 1 tab PO DAILY oxycodone 5 mg capsule 5 mg PO BID PRN (Reason: severe pain) Qty: 6 0RF Rx Instructions: Partial Fill upon patient request. sumatriptan succinate 100 mg tablet 50 - 100 mg PO .COMPLEX PRN (Reason: migraine headache) 30 Days Qty: 12 6RF Rx Instructions: 50 - 100 mg orally at onset of headache, may repeat in 2 hrs PRN; max 2 tabs per day or 4 tabs/week (may take with Ibuprofen)
[2022-11-13 08:36] LABS: MANUAL DIFF FLAG NO
[2022-11-13] MEDS: 0.9 % Sodium Chloride 1,000 ML 999 ML IVCONT (08:40)
--- NOTE | 2022-11-13 08:45 | PC.NURSE ---
PT REPORTS THAT HE IS NOT ANXIOUS SO HE DOES NOT WANT ATIVAN, ALSO REPORTS ALLERGY TO REGLAN - REPORTS HE NEEDS PHENERGAN AND DILAUDID
[2022-11-13 08:49] LABS: Basophils Percent Auto 0.4 % (0-2); Eosinophils Absolute Auto 0.1 X10*3/uL (0.0-0.4); Hematocrit 41.4 % (42.0-52.0); Hemoglobin 14.3 g/dl (14.0-18.0); Imm Gran Abs Auto 0.02 X10*3/uL (0.00-0.03); Imm Gran Pct Auto 0.3 % (0.0-0.4); Lymphocytes Absolute Auto 2.5 X10*3/uL (1.2-4.9); Lymphocytes Percent Auto 35.1 % (20-40); Mean Corpuscular HGB Conc 34.5 g/dl (31.0-36.0); Mean Corpuscular Volume 92.6 fL (80.0-98.0); Mean Platelet Volume 10.6 fL (9.4-12.4); Monocytes Absolute Auto 0.6 X10*3/uL (0.1-1.2); Neutrophils Absolute Auto 3.9 x10*3/uL (2.0-8.3); Neutrophils Percent Auto 55.2 % (45-73); Platelet Count 184 X10*3/uL (160-400); Red Blood Count 4.47 X10*6/uL (4.60-5.80); Red Cell Distribution Width 12.9 % (11.0-16.0)
[2022-11-13 08:57] LABS: Alanine Aminotransferase 97 U/L (0-40); Albumin Level 4.1 g/dL (3.5-5.0); Alkaline Phosphatase 61 U/L (39-117); Anion Gap 11 (12-20); Aspartate Amino Transferase 43 U/L (5-37); Bilirubin Total 1.1 mg/dL (0.0-1.0); Blood Urea Nitrogen 15 mg/dL (9-16); Calcium 9.4 mg/dL (8.4-10.2); Carbon Dioxide 27 mmol/L (22-29); Chloride 105 mmol/L (96-108); Creatinine Clr Calc Pharmacy 114.2; Estimated Glomerular Filt Rate > 60; Glucose Random 86 mg/dL (60-115); Lipase 23 U/L (8-78); Potassium 3.9 mmol/L (3.3-5.1); Sodium 139 mmol/L (135-145); Total Protein 7.2 g/dL (6.5-8.0)
[2022-11-13] MEDS: Metoclopramide HCl 10 MG/2 ML VIAL IVPUSH (09:10)
[2022-11-13] MEDS: diphenhydrAMINE HCL 50 MG/ML VIAL 25 MG IVPUSH (09:10)
[2022-11-13] MEDS: iohexoL 350 MG/ML 100 ML INFUS..BTL 85 ML IV (09:55)
[2022-11-13] MEDS: HYDROmorphone HCl 0.5 MG/0.5 ML SYRINGE IVPUSH ×2 (10:06→12:12)
[2022-11-13 10:08] VITALS: BP 114/76; PULSE 73; RESP 16; O2SAT 97
[2022-11-13 12:11] VITALS: BP 112/74; PULSE 88; RESP 18; O2SAT 97
[2022-11-13] MEDS: HYDROmorphone HCl 1 MG/ML SYRINGE IVPUSH (12:55)
== END 2022-11-13 13:40 | disposition home or self-care (01) ==
PROVIDERS: Emergency Provider Emergency Medicine; PCP Internal Medicine
DX: R10.9 Unspecified abdominal pain (principal); R10.2 Pelvic and perineal pain; Z79.899 Other long term (current) drug therapy
CPT/HCPCS: 36415; 74177; 80053; 83690; 85025; 96361; 96374; 96375; 96376; 99284; J1170; J1200; J2765; Q9967

== ENCOUNTER 2022-12-22 08:53 | Emergency (ER) | payer OTHER, SELFPAY ==
--- NOTE | ~2022-12-22 | CT_ITS ---
EXAMINATION: CT ABDOMEN AND PELVIS WITH CONTRAST CLINICAL INFORMATION: Crohn's flare COMPARISON: CT abdomen pelvis with IV contrast 11/13/2022. TECHNIQUE: Multidetector volumetric images were obtained from the superior aspect of the liver through the pubic symphysis following administration 85 mL of Omnipaque 350 intravenous contrast. Sagittal and coronal reformatted images were obtained on the technologist's workstation. Oral contrast: Was administered. This CT examination was performed using dose optimization techniques as appropriate, variously including the following: *Automated exposure control *Adjustment of mA and/or kV according to patient size (this includes techniques or standardized protocols for targeted exams where dose is matched to indication/reason for exam; i.e. extremities or head) *Use of iterative reconstruction technique DLP: 585 mGy-cm FINDINGS: LUNG BASES: The visualized lung bases are unremarkable. LIVER, GALLBLADDER, AND BILIARY TREE: The liver is normal in size, shape, and attenuation. No focal hepatic lesion or biliary ductal dilatation is present. The gallbladder has been surgically removed PANCREAS: Unremarkable. SPLEEN: Unremarkable. ADRENAL GLANDS: Unremarkable. KIDNEYS AND URETERS: The kidneys are normal in size, shape, and attenuation. There is small intrarenal nonobstructive calculi similar to previous study. No caliectasis or hydronephrosis seen. BLADDER: The bladder is distended and appears unremarkable.. GASTROINTESTINAL TRACT: Oral contrast opacified colon is unremarkable. There is minimal thickening involving small bowel segments in the left midabdomen likely proximal ileal loops. Surgical clips are seen in the right lower quadrant and left mid quadrant. ABDOMINAL WALL: No significant hernia is appreciated. LYMPH NODES: Normal. VASCULAR: Unremarkable. PELVIC VISCERA: Unremarkable. OSSEOUS STRUCTURES: No aggressive lytic or sclerotic process seen. CT/CT abdomen pelvis w IV con IMPRESSION: 1. Mild thickening involving small bowel segments in the left midabdomen likely proximal ileal loops. No obstruction seen. Postsurgical changes right lower quadrant and left mid quadrant. 2. Nonobstructive bilateral intrarenal calculi. Fleischner guidelines were followed.
[2022-12-22 08:54] VITALS: BP 116/79; PULSE 74; RESP 18; TEMP 36.4; O2SAT 97; BMI 26.6
[2022-12-22 09:10] VITALS: BP 113/72; PULSE 81; RESP 18; O2SAT 98
--- NOTE | 2022-12-22 09:10 | ED.ABDPAIN ---
HPI - Abdominal Pain General Chief Complaint: Abdominal Pain Stated Complaint: Stomach Pain Time Seen by Provider: 12/22/22 09:08 Source: patient Mode of arrival: ambulatory Limitations: no limitations History of Present Illness HPI narrative: Patient with chrohns disease, has been under stress now with increased abdominal pain. Patient had a prior colostomy that was reversed. Now with vomiting. MD elicited complaint: abdominal pain Pertinent past history: other (chrohns) Onset (ago): day(s) Pain Consistency: constant Location: RUQ and RLQ Severity: moderate Quality: cramping Associated symptoms: nausea and vomiting Related Data Home Medications Medication Instructions Recorded Confirmed adalimumab 40 mg/0.4 mL 40 mg subcut TH@0900 08/19/21 06/11/22 subcutaneous pen kit (Humira(CF) Pen) clonazepam 1 mg tablet 1 tab PO BID PRN Anxiety 08/19/21 06/11/22 loratadine 10 mg tablet 1 tab PO DAILY PRN Allergy Symptoms 08/19/21 06/11/22 omeprazole 20 mg capsule,delayed 2 cap PO DAILY@0630 08/19/21 06/11/22 release zolpidem 10 mg tablet 1 tab PO BEDTIME 08/19/21 06/11/22 hydrocortisone 1 % topical cream 1 appl topical BID PRN Itching 09/18/21 06/11/22 multivitamin with folic acid 400 1 tab PO DAILY 06/11/22 06/11/22 mcg tablet (Daily-Davis (with folic acid)) Previous Rx's Medication Instructions Recorded tizanidine 4 mg tablet 6 mg PO BEDTIME PRN Muscle Spasm 03/25/22 30 days #135 tabs propranolol 10 mg tablet 10 mg PO BID 90 days #180 tabs 03/26/22 tramadol 50 mg tablet 50 mg PO BID PRN moderate pain 04/17/22 (scale score 5-6) #14 tabs sumatriptan succinate 100 mg tablet 50 - 100 mg PO .COMPLEX PRN 06/14/22 migraine headache 30 days #12 tabs magnesium oxide 400 mg (241.3 mg 400 mg PO BEDTIME 30 days #30 tabs 07/03/22 magnesium) tablet metronidazole 500 mg tablet 500 mg PO BID 7 days #14 tabs 07/14/22 oxycodone 5 mg tablet 5 mg PO Q8H PRN pain #5 tabs 07/14/22 promethazine 25 mg tablet 25 mg PO Q6H PRN nausea and 07/14/22 vomiting #10 tabs topiramate 25 mg tablet 25 - 50 mg PO DAILY 30 days #60 09/14/22 tabs docusate sodium 100 mg capsule 100 mg PO BID PRN Constipation #14 09/28/22 (Colace) caps ondansetron HCl 4 mg tablet 4 mg PO Q8H #14 tabs 09/28/22 polyethylene glycol 3350 17 17 g PO DAILY #119 grams 09/28/22 gram/dose oral powder (Miralax) oxycodone 5 mg capsule 5 mg PO BID PRN severe pain #6 caps 11/02/22 prednisone 20 mg tablet 60 mg PO DAILY 5 days #15 tabs 01/31/23 Allergies Allergy/AdvReac Type Severity Reaction Status Date / Time ondansetron [Ondansetron] Allergy Mild HIVES Verified 01/31/23 09:03 Sulfa (Sulfonamide Allergy Mild UNKNOWN Verified 01/31/23 09:03 Antibiotics) ketorolac Allergy Unknown Unknown Verified 01/31/23 09:03 meperidine [Demerol] Allergy Unknown Unknown Verified 01/31/23 09:03 metoclopramide [Reglan] Allergy Unknown Unknown Verified 01/31/23 09:03 morphine [Morphine] Allergy Unknown RASH Verified 01/31/23 09:03 haloperidol [From Haldol] Allergy Anaphylaxis Verified 01/31/23 09:03 ketamine Allergy Unknown Verified 01/31/23 09:03 From REGLAN Allergy Mild PT UNSURE Uncoded 06/03/22 13:18 BUT STATES HE IS ALLERGIC Compro Allergy Unknown Unknown Uncoded 06/03/22 13:18 From COMPAZINE Allergy Unknown ITCHING Uncoded 06/03/22 13:18 From Demerol Allergy Unknown ITCHY HIVES Uncoded 06/03/22 13:18 From Toradol Allergy Unknown UNK Uncoded 06/03/22 13:18 Review of Systems Review of Systems Yes all other systems are reviewed and are negative Comments: abdominal pain and vomiting PMFSH Past Medical History Medical History Anxiety Cervicalgia Crohn's disease IBD (inflammatory bowel disease) Migraine Partial small bowel obstruction Surgical History History of colostomy reversal History of esophagogastroduodenoscopy (EGD) History of surgery on arm Hx of colonoscopy S/P colostomy Family History Family History Mother HTN (hypertension) Social History Social History Household Members: Spouse Housing: House Do you presently have visiting nurse or other home services: No Alcohol intake: never Patient Tobacco Use Status: Never used Tobacco Advance Directives: No Advance Directives Information Provided: Yes service: No Current occupational status: disabled Physical Exam ED Vital Signs: Vital Signs - 24 hr 12/22/22 08:54 Temperature 97.6 F Pulse Rate 74 Respiratory Rate 18 Blood Pressure 116/79 Pulse Oximetry 97 Oxygen Delivery Method Room Air BMI result Body Mass Index 26.6 Const Other: extremely anxious General: healthy appearing Nutritional Appearance: average body habitus Orientation/consciousness: oriented to person and patient oriented x3 Limitations: no limitations HENMT Head: Yes normal to inspection Ears: external ears normal General nose exam: Normal external nose present Mouth: Normal oral and palatal mucosa present and oropharynx normal Throat: Yes posterior oropharynx normal Eyes General: appearance normal, both eyes and all related structures Neck Neck: Yes normal visual inspection Chest Chest palpation & inspection: normal inspection of the chest Resp Auscultation: clear to auscultation bilaterally Cardio Jugular venous distension: no JVD Rate: regular rate Rhythm: regular rhythm Heart sounds: S1 normal heart sound present and S2 normal heart sound present GI Other: good BS, firm slightly tender diffusely Inspection: Yes normal to inspection Auscultation: normal bowel sounds General: Yes no CVA tenderness Back/Spine/Pelvis Back: no CVA tenderness Skin General skin exam: no rashes or lesions noted Neuro General: oriented to person and patient oriented x3 Cranial nerves: Yes CN's II-XII intact bilaterally Motor exam (neuro): 5/5 motor strength present throughout Extrem General: Yes normal to inspection Psych Appearance: grossly normal Medical Decision Making Differential Diagnosis Differential Diagnoses: The differential diagnosis associated with the presentation includes (Bowel obstruction, Crohns Flare, bowel perforation, diverticulitis) Admission/Observation Consideration of admission/observation: Escalation of care including admission/observation considered (upon arrival this patient was considered for admission) Lab Data MDM Lab Attestation statement: I reviewed the patient's lab results. (no elevation of WBC, mild chronic elevation of LFTs, normal HCT) 12/22/22 09:02 12/22/22 09:02 Labs: Lab Results 12/22/22 12/22/22 12/22/22 Range/Units 09:02 09:02 10:34 WBC 5.7 (4.8-10.8) X10*3/uL RBC 4.45 L (4.60-5.80) X10*6/uL Hgb 14.5 (14.0-18.0) g/dl Hct 42.0 (42.0-52.0) % MCV 94.4 (80.0-98.0) fL MCH 32.6 (27.0-33.0) pg MCHC 34.5 (31.0-36.0) g/dl RDW 12.7 (11.0-16.0) % Plt Count 171 (160-400) X10*3/uL MPV 10.6 (9.4-12.4) fL Immature Gran % (Auto) 0.4 (0.0-0.4) % Neut % (Auto) 63.8 (45-73) % Lymph % (Auto) 28.6 (20-40) % Wilson % (Auto) 6.0 (2-11) % Eos % (Auto) 0.7 (0-4) % Baso % (Auto) 0.5 (0-2) % Lymph # (Auto) 1.6 (1.2-4.9) X10*3/uL Wilson # (Auto) 0.3 (0.1-1.2) X10*3/uL Eos # (Auto) 0.0 (0.0-0.4) X10*3/uL Baso # (Auto) 0.0 (0.0-0.2) X10*3/uL Abs Immat Gran (auto) 0.02 (0.00-0.03) X10*3/uL Absolute Neuts (auto) 3.6 (2.0-8.3) x10*3/uL Absolute Nucleated RBC 0.000 (0.0-0.012) X10*3/uL Nucleated RBC % (auto) 0.0 (0.0-0.2) /100WBC Sodium 141 (135-145) mmol/L Potassium 4.0 (3.3-5.1) mmol/L Chloride 105 (96-108) mmol/L Carbon Dioxide 29 (22-29) mmol/L Anion Gap 11 L (12-20) BUN 6 L (9-16) mg/dL Creatinine 0.76 (0.5-1.4) mg/dL Estim Creat Clear Calc 103.8 Estimated GFR > 60 Random Glucose 97 (60-115) mg/dL Calcium 9.5 (8.4-10.2) mg/dL Total Bilirubin 1.0 (0.0-1.0) mg/dL Direct Bilirubin 0.2 (0.0-0.5) mg/dL AST 45 H (5-37) U/L ALT 93 H (0-40) U/L Alkaline Phosphatase 73 (39-117) U/L Total Protein 8.0 (6.5-8.0) g/dL Albumin 4.3 (3.5-5.0) g/dL Lipase 15 (8-78) U/L Urine Color Yellow Urine Appearance Clear Urine pH 7.5 (5.0-9.0) Ur Specific [place] <= 1.005 (1.005-1.025) Urine Protein Negative (Neg-Trace) mg/dL Urine Glucose (UA) Negative (Negative) mg/dL Urine Ketones Negative (Negative) mg/dL Urine Blood Negative (Negative) Urine Nitrite Negative (Negative) Ur Leukocyte Esterase Negative (Negative) Independent Interpretation I performed an independent interpretation of an: CT Scan (no bowel obstruction) Radiology Impression Discussion of test interpretation with radiology: I have reviewed the radiologist's reading. (no obstruction, no flare, no perforation) External Record Review External record reviewed: Outpatient record Prescription Management I considered prescription management with: Pain Medication (I considered narcotic pain medication but the patient has chronic pain) Medications Administered Discontinued Medications Generic Name Dose Route Start Last Admin Trade Name Freq PRN Reason Stop Dose Admin Barium Sulfate 900 ml 12/22/22 12:42 12/22/22 12:43 Barium Sulfate Oral ([place]) 450 Ml Oral.Susp PO 12/22/22 12:43 900 ml ONCE ONE Administration Diphenhydramine HCl 25 mg 12/22/22 09:14 12/22/22 09:39 Diphenhydramine Hcl 50 Mg/Ml Vial IVPUSH 12/22/22 09:15 25 mg ONCE ONE Administration Hydromorphone HCl 1 mg 12/22/22 10:24 12/22/22 10:29 Hydromorphone Hcl 1 Mg/Ml Syringe IVPUSH 12/22/22 10:25 1 mg ONCE ONE Administration Protocol Hydromorphone HCl 1 mg 12/22/22 11:38 12/22/22 11:46 Hydromorphone Hcl 1 Mg/Ml Syringe IVPUSH 12/22/22 11:39 1 mg ONCE ONE Administration Protocol Sodium Chloride 1,000 mls @ 125 mls/hr 12/22/22 09:15 12/22/22 09:39 Ns IVCONT 125 mls/hr .Q8H DULCE MARIA Administration Promethazine HCl 25 mg/ Sodium 51 mls @ 204 mls/hr 12/22/22 09:14 12/22/22 10:03 Chloride IV 12/22/22 09:15 Infused ONCE ONE Infusion Iohexol 100 ml 12/22/22 12:43 12/22/22 12:44 Iohexol 350 Mg/Ml 100 Ml Infus..Btl IV 12/22/22 12:44 85 ml ONCE ONE Administration Pantoprazole Sodium 40 mg 12/22/22 09:14 12/22/22 09:39 Pantoprazole Sodium 40 Mg/10 Ml Vial IVPUSH 12/22/22 09:15 40 mg ONCE ONE Administration Discharge Plan Discharge Clinical Impression: Abdominal pain Patient Disposition: Home, Self-Care Prescriptions: No Action tizanidine 4 mg tablet 6 mg PO BEDTIME PRN (Reason: Muscle Spasm) 30 Days Qty: 135 3RF propranolol 10 mg tablet 10 mg PO BID 90 Days Qty: 180 1RF magnesium oxide 400 mg (241.3 mg magnesium) tablet 400 mg PO BEDTIME 30 Days Qty: 30 6RF Rx Instructions: may hold for loose stools topiramate 25 mg tablet 25 - 50 mg PO DAILY 30 Days Qty: 60 6RF hydrocortisone 1 % cream 1 appl topical BID PRN (Reason: Itching) tramadol 50 mg tablet 50 mg PO BID PRN (Reason: moderate pain (scale score 5-6)) Qty: 14 0RF promethazine 25 mg tablet 25 mg PO Q6H PRN (Reason: nausea and vomiting) Qty: 10 0RF metronidazole 500 mg tablet 500 mg PO BID 7 Days Qty: 14 0RF oxycodone 5 mg tablet 5 mg PO Q8H PRN (Reason: pain) Qty: 5 0RF Rx Instructions: Partial Fill upon patient request. docusate sodium [Colace] 100 mg capsule 100 mg PO BID PRN (Reason: Constipation) Qty: 14 0RF polyethylene glycol 3350 [Miralax] 17 gram/dose powder 17 g PO DAILY Qty: 119 0RF ondansetron HCl 4 mg tablet 4 mg PO Q8H Qty: 14 0RF clonazepam 1 mg tablet 1 tab PO BID PRN (Reason: Anxiety) omeprazole 20 mg capsule,delayed release(DR/EC) 2 cap PO DAILY@0630 zolpidem 10 mg tablet 1 tab PO BEDTIME loratadine 10 mg tablet 1 tab PO DAILY PRN (Reason: Allergy Symptoms) Humira(CF) Pen 40 mg/0.4 mL pen injector kit 40 mg subcut TH@0900 multivitamin with folic acid [Daily-Davis (with folic acid)] 400 mcg tablet 1 tab PO DAILY oxycodone 5 mg capsule 5 mg PO BID PRN (Reason: severe pain) Qty: 6 0RF Rx Instructions: Partial Fill upon patient request. prednisone 20 mg tablet 60 mg PO DAILY 5 Days Qty: 15 0RF sumatriptan succinate 100 mg tablet 50 - 100 mg PO .COMPLEX PRN (Reason: migraine headache) 30 Days Qty: 12 6RF Rx Instructions: 50 - 100 mg orally at onset of headache, may repeat in 2 hrs PRN; max 2 tabs per day or 4 tabs/week (may take with Ibuprofen) Interventions: ED Discharge Assessment Last Done: 12/22/22 15:22 Discharge Date/Time: 12/22/22 15:23
--- NOTE | 2022-12-22 09:14 | PC.NURSE ---
Alert and oriented. is having abdominal pain with vomiting that started last night and has a history of chrons disease. previously had a colostomy that has been reversed. GI dr is in [facility] and the pain was too great to drive that far today. grandfather last week and that stress may have led to this happening. Positive bowel sounds heard. States regular BM`s. Pain with palpation on right side noted.
[2022-12-22 09:20] LABS: MANUAL DIFF FLAG NO
[2022-12-22 09:22] LABS: Basophils Percent Auto 0.5 % (0-2); Eosinophils Percent Auto 0.7 % (0-4); Hemoglobin 14.5 g/dl (14.0-18.0); Imm Gran Abs Auto 0.02 X10*3/uL (0.00-0.03); Imm Gran Pct Auto 0.4 % (0.0-0.4); Lymphocytes Absolute Auto 1.6 X10*3/uL (1.2-4.9); Lymphocytes Percent Auto 28.6 % (20-40); Mean Corpuscular HGB Conc 34.5 g/dl (31.0-36.0); Mean Corpuscular Hemoglobin 32.6 pg (27.0-33.0); Mean Corpuscular Volume 94.4 fL (80.0-98.0); Mean Platelet Volume 10.6 fL (9.4-12.4); Monocytes Absolute Auto 0.3 X10*3/uL (0.1-1.2); Neutrophils Absolute Auto 3.6 x10*3/uL (2.0-8.3); Neutrophils Percent Auto 63.8 % (45-73); Platelet Count 171 X10*3/uL (160-400); Red Blood Count 4.45 X10*6/uL (4.60-5.80); Red Cell Distribution Width 12.7 % (11.0-16.0); White Blood Count 5.7 X10*3/uL (4.8-10.8)
[2022-12-22 09:36] LABS: Alanine Aminotransferase 93 U/L (0-40); Albumin Level 4.3 g/dL (3.5-5.0); Alkaline Phosphatase 73 U/L (39-117); Anion Gap 11 (12-20); Aspartate Amino Transferase 45 U/L (5-37); Bilirubin Direct 0.2 mg/dL (0.0-0.5); Blood Urea Nitrogen 6 mg/dL (9-16); Calcium 9.5 mg/dL (8.4-10.2); Carbon Dioxide 29 mmol/L (22-29); Chloride 105 mmol/L (96-108); Creatinine Clr Calc Pharmacy 103.8; Estimated Glomerular Filt Rate > 60; Glucose Random 97 mg/dL (60-115); Lipase 15 U/L (8-78); Sodium 141 mmol/L (135-145)
[2022-12-22] MEDS: diphenhydrAMINE HCL 50 MG/ML VIAL 25 MG IVPUSH (09:39)
[2022-12-22] MEDS: 0.9 % Sodium Chloride 1,000 ML 125 ML IVCONT (09:39)
[2022-12-22] MEDS: Pantoprazole Sodium 40 MG/10 ML VIAL IVPUSH (09:39)
--- NOTE | 2022-12-22 10:12 | PC.NURSE ---
IV meds and fluids given per order. Patient off to cat scan at this time.
[2022-12-22] MEDS: HYDROmorphone HCl 1 MG/ML SYRINGE IVPUSH ×2 (10:29→11:46)
[2022-12-22 10:49] LABS: Appearance Urine Clear; Color Urine Yellow; Glucose Urine UA Negative (Negative); Leukocyte Esterase Urine Negative (Negative); Nitrite Urine Negative (Negative); PH 7.5 (5.0-9.0); Specific Gravity - Urine <= 1.005 (1.005-1.025); Urine Blood Negative (Negative); Urine Ketones Negative (Negative); Urine Protein Negative (Neg-Trace)
[2022-12-22 11:24] VITALS: BP 113/76; PULSE 63; RESP 16; TEMP 36.4; O2SAT 99
--- NOTE | 2022-12-22 11:47 | PC.NURSE ---
Medicated for persistent 9/10 right sided abd pain radiating to low back as charted. Able to tolerate PO contrast but vomited small amt at the end. Skin pwd.
[2022-12-22 12:00] VITALS: BP 113/80; PULSE 89; RESP 18; O2SAT 98
--- NOTE | 2022-12-22 12:38 | PC.NURSE ---
Back from cat scan, iv fluids continue to run as ordewred. Patient reports stomach upset because of drinking prep for ct scan
[2022-12-22] MEDS: Barium Sulfate Oral (Berry) 450 ML ORAL.SUSP 900 ML PO (12:43)
[2022-12-22] MEDS: iohexoL 350 MG/ML 100 ML INFUS..BTL IV (12:44)
--- NOTE | 2022-12-22 13:51 | PC.NURSE ---
Resting comfortably in bed with eyes shut. States pain is an 8/10 but has improved. Await[address] CT resutls at this time.
[2022-12-22 14:12] VITALS: BP 104/80; PULSE 57; RESP 16; TEMP 37.1; O2SAT 98
--- NOTE | 2022-12-22 14:56 | PC.NURSE ---
Patient reports feeling much better and would like to be discharged. Provider aware.
--- NOTE | 2022-12-22 15:18 | PC.NURSE ---
Patient`s iv removed, stating he was not waiting any longer for MD to put in discharge paperwork. Patient exited ED into waiting room and left with .
== END 2022-12-22 15:23 | disposition home or self-care (01) ==
PROVIDERS: Emergency Provider Emergency Medicine; PCP Internal Medicine
DX: R10.11 Right upper quadrant pain (principal); F43.9 Reaction to severe stress, unspecified; R10.31 Right lower quadrant pain; R11.2 Nausea with vomiting, unspecified; Z79.899 Other long term (current) drug therapy
CPT/HCPCS: 36415; 74177; 80048; 80076; 81003; 83690; 85025; 96365; 96375; 96376; 99284; J1170; J1200; J2550; Q9967

== ENCOUNTER 2023-01-31 08:46 | Emergency (ER) | payer OTHER, SELFPAY ==
--- NOTE | ~2023-01-31 | CT_ITS ---
EXAMINATION: CT ABDOMEN AND PELVIS WITH CONTRAST CLINICAL INFORMATION: Abdominal pain. History of Crohn's disease. COMPARISON: Previous CT scans most recent 12/22/2022 TECHNIQUE: Multidetector volumetric images were obtained from the superior aspect of the liver through the pubic symphysis following administration 85 mL of Omnipaque 350 intravenous contrast. Sagittal and coronal reformatted images were obtained on the technologist's workstation. Oral contrast: Yes This CT examination was performed using dose optimization techniques as appropriate, variously including the following: *Automated exposure control *Adjustment of mA and/or kV according to patient size (this includes techniques or standardized protocols for targeted exams where dose is matched to indication/reason for exam; i.e. extremities or head) *Use of iterative reconstruction technique DLP: 508 mGy-cm FINDINGS: LUNG BASES: The visualized lung bases are unremarkable. LIVER, GALLBLADDER, AND BILIARY TREE: The liver is normal in size, shape, and attenuation. No focal hepatic lesion or biliary ductal dilatation is present. The gallbladder has been removed. PANCREAS: Unremarkable. SPLEEN: Upper normal-size spleen. No focal lesion. ADRENAL GLANDS: Unremarkable. KIDNEYS AND URETERS: Small nonobstructing bilateral renal stones. BLADDER: Unremarkable. GASTROINTESTINAL TRACT: Stable postsurgical changes following subtotal colectomy. Surgical clips in the right lower quadrant, pelvis and rectal anal junction and left upper quadrant unchanged. No bowel dilatation, wall thickening, fistula or abscess is appreciated. No free air. No ascites. No perirectal changes.. ABDOMINAL WALL: Small umbilical hernia containing fat. Small right inguinal hernia containing fat. LYMPH NODES: Normal. VASCULAR: Unremarkable. PELVIC VISCERA: Unremarkable. OSSEOUS STRUCTURES: Unremarkable. CT/CT abdomen pelvis w IV con IMPRESSION: Stable postsurgical changes following colectomy. No evidence of active inflammatory bowel disease or obstruction. Small bilateral renal stones. Fleischner guidelines were followed.
[2023-01-31 09:03] VITALS: BP 108/72; PULSE 68; RESP 18; TEMP 36.6; O2SAT 98; BMI 26.6
[2023-01-31 09:21] LABS: MANUAL DIFF FLAG NO
[2023-01-31 09:22] LABS: Imm Gran Abs Auto 0.01 X10*3/uL (0.00-0.03); Imm Gran Pct Auto 0.2 % (0.0-0.4); Monocytes Absolute Auto 0.3 X10*3/uL (0.1-1.2); PLT CLUMP 1; Red Cell Distribution Width 12.2 % (11.0-16.0); SCAN SMEAR FLAG 1
[2023-01-31 09:24] LABS: Basophils Percent Auto 0.6 % (0-2); Eosinophils Absolute Auto 0.1 X10*3/uL (0.0-0.4); Eosinophils Percent Auto 1.4 % (0-4); Hematocrit 40.1 % (42.0-52.0); Hemoglobin 13.7 g/dl (14.0-18.0); Lymphocytes Absolute Auto 1.5 X10*3/uL (1.2-4.9); Lymphocytes Percent Auto 29.4 % (20-40); Mean Corpuscular HGB Conc 34.2 g/dl (31.0-36.0); Mean Corpuscular Hemoglobin 31.8 pg (27.0-33.0); Mean Platelet Volume 10.5 fL (9.4-12.4); Monocytes Percent Auto 4.9 % (2-11); Neutrophils Absolute Auto 3.3 x10*3/uL (2.0-8.3); Neutrophils Percent Auto 63.5 % (45-73); Red Blood Count 4.31 X10*6/uL (4.60-5.80)
[2023-01-31 09:28] LABS: White Blood Count 5.1 X10*3/uL (4.8-10.8)
[2023-01-31 09:29] LABS: Platelet Count 156 X10*3/uL (160-400)
[2023-01-31 09:40] LABS: Alanine Aminotransferase 24 U/L (0-40); Albumin Level 4.2 g/dL (3.5-5.0); Alkaline Phosphatase 65 U/L (39-117); Anion Gap 11 (12-20); Aspartate Amino Transferase 21 U/L (5-37); Blood Urea Nitrogen 9 mg/dL (9-16); Calcium 9.8 mg/dL (8.4-10.2); Carbon Dioxide 30 mmol/L (22-29); Chloride 104 mmol/L (96-108); Creatinine Clr Calc Pharmacy 105.1; Estimated Glomerular Filt Rate > 60; Glucose Random 128 mg/dL (60-115); Potassium 4.1 mmol/L (3.3-5.1); Sodium 141 mmol/L (135-145); Total Protein 7.6 g/dL (6.5-8.0)
--- NOTE | 2023-01-31 10:06 | ED.NAVMDI ---
HPI - Nausea/Vomiting/Diarrhea General Chief complaint: Nausea/Vomiting/Diarrhea Stated complaint: Vomiting Time Seen by Provider: 01/31/23 10:04 Source: patient Mode of arrival: ambulatory Limitations: no limitations History of Present Illness HPI Narrative: This is a 42-year-old male history of anxiety, Crohn's disease, IBD, migraines, small-bowel obstruction presenting to the emergency department with diffuse abdominal pain, nausea, vomiting, inability to tolerate p.o., abdominal distension for the past 2 days, patient reports he has a history of Crohn's disease, currently taking Humira and med compliant, has had a history of colostomy with reversal, patient tells me he took pain meds this morning due to severe abdominal pain however pain medicine not working. Patient denies fevers, chills, chest pain, shortness of breath, changes in bowel habits or urination, headache, vision changes, dizziness and weakness. Patient is followed by Gastroenterology at [facility] and used to be followed here at [facility]. Last saw them in April of 2022. Related Data Home Medications Medication Instructions Recorded Confirmed adalimumab 40 mg/0.4 mL 40 mg subcut TH@0900 08/19/21 06/11/22 subcutaneous pen kit (Humira(CF) Pen) clonazepam 1 mg tablet 1 tab PO BID PRN Anxiety 08/19/21 06/11/22 loratadine 10 mg tablet 1 tab PO DAILY PRN Allergy Symptoms 08/19/21 06/11/22 omeprazole 20 mg capsule,delayed 2 cap PO DAILY@0630 08/19/21 06/11/22 release zolpidem 10 mg tablet 1 tab PO BEDTIME 08/19/21 06/11/22 hydrocortisone 1 % topical cream 1 appl topical BID PRN Itching 09/18/21 06/11/22 multivitamin with folic acid 400 1 tab PO DAILY 06/11/22 06/11/22 mcg tablet (Daily-Davis (with folic acid)) Previous Rx's Medication Instructions Recorded tizanidine 4 mg tablet 6 mg PO BEDTIME PRN Muscle Spasm 03/25/22 30 days #135 tabs propranolol 10 mg tablet 10 mg PO BID 90 days #180 tabs 03/26/22 tramadol 50 mg tablet 50 mg PO BID PRN moderate pain 04/17/22 (scale score 5-6) #14 tabs sumatriptan succinate 100 mg tablet 50 - 100 mg PO .COMPLEX PRN 06/14/22 migraine headache 30 days #12 tabs magnesium oxide 400 mg (241.3 mg 400 mg PO BEDTIME 30 days #30 tabs 07/03/22 magnesium) tablet metronidazole 500 mg tablet 500 mg PO BID 7 days #14 tabs 07/14/22 oxycodone 5 mg tablet 5 mg PO Q8H PRN pain #5 tabs 07/14/22 promethazine 25 mg tablet 25 mg PO Q6H PRN nausea and 07/14/22 vomiting #10 tabs topiramate 25 mg tablet 25 - 50 mg PO DAILY 30 days #60 09/14/22 tabs docusate sodium 100 mg capsule 100 mg PO BID PRN Constipation #14 09/28/22 (Colace) caps ondansetron HCl 4 mg tablet 4 mg PO Q8H #14 tabs 09/28/22 polyethylene glycol 3350 17 17 g PO DAILY #119 grams 09/28/22 gram/dose oral powder (Miralax) oxycodone 5 mg capsule 5 mg PO BID PRN severe pain #6 caps 11/02/22 prednisone 20 mg tablet 60 mg PO DAILY 5 days #15 tabs 01/31/23 Allergies Allergy/AdvReac Type Severity Reaction Status Date / Time ondansetron [Ondansetron] Allergy Mild HIVES Verified 01/31/23 09:03 Sulfa (Sulfonamide Allergy Mild UNKNOWN Verified 01/31/23 09:03 Antibiotics) ketorolac Allergy Unknown Unknown Verified 01/31/23 09:03 meperidine [Demerol] Allergy Unknown Unknown Verified 01/31/23 09:03 metoclopramide [Reglan] Allergy Unknown Unknown Verified 01/31/23 09:03 morphine [Morphine] Allergy Unknown RASH Verified 01/31/23 09:03 haloperidol [From Haldol] Allergy Anaphylaxis Verified 01/31/23 09:03 ketamine Allergy Unknown Verified 01/31/23 09:03 From REGLAN Allergy Mild PT UNSURE Uncoded 06/03/22 13:18 BUT STATES HE IS ALLERGIC Compro Allergy Unknown Unknown Uncoded 06/03/22 13:18 From COMPAZINE Allergy Unknown ITCHING Uncoded 06/03/22 13:18 From Demerol Allergy Unknown ITCHY HIVES Uncoded 06/03/22 13:18 From Toradol Allergy Unknown UNK Uncoded 06/03/22 13:18 Review of Systems Review of Systems: Constitutional : No Weight loss, No Fever, No Chills, No Fatigue, No Malaise ENT/Mouth : No sore throat, No Rhinorrhea Eyes: No Eye Pain, No Swelling, No Redness Cardiovascular : No Chest Pain, No SOB, No Dyspnea on Exertion, No Orthopnea, No Edema, No Palpitations Respiratory : No Cough, No Sputum, No Wheezing Gastrointestinal : + Nausea, + Vomiting, No Diarrhea, No Constipation, + abdominal Pain, No Hematochezia, No Melena Genitourinary : No Dysuria, No Urinary Frequency, No Hematuria, Musculoskeletal : No joint pain, No Myalgias, No Joint Swelling Skin : No Skin Lesions, No rash Neuro : No Weakness, No Numbness, No Dizziness, No Headache Psych : No Anxiety/Panic, No Depression All other systems reviewed and are negative Yes all other systems are reviewed and are negative [facility] Past Medical History Attestation statement: The following information was validated with the patient. Source: old records reviewed and nursing notes reviewed Medical History Anxiety Cervicalgia Crohn's disease IBD (inflammatory bowel disease) Migraine Partial small bowel obstruction Surgical History History of colostomy reversal History of esophagogastroduodenoscopy (EGD) History of surgery on arm Hx of colonoscopy S/P colostomy Family History Family History Mother HTN (hypertension) Social History Social History Household Members: Spouse Housing: House Do you presently have visiting nurse or other home services: No Alcohol intake: never Patient Tobacco Use Status: Never used Tobacco Advance Directives: No Advance Directives Information Provided: Yes service: No Current occupational status: disabled Physical Exam Vital Signs: Vital Signs: Last Vital Signs Temp 98.3 F 01/31/23 14:03 Pulse 51 01/31/23 14:03 Resp 16 01/31/23 14:03 BP 103/74 01/31/23 14:03 Pulse Ox 98 01/31/23 14:03 O2 Del Method Room Air 01/31/23 14:03 BMI result Body Mass Index 26.6 vss Appearance: Alert.? Oriented X3.? No acute distress.? Head: Normocephalic, atraumatic, no step-offs or deformities Eyes: Pupils equal, round and reactive to light.? ENT: Pharynx normal.? Neck: Normal inspection.? Neck supple.? CVS: Normal heart rate and rhythm.? Pulses normal.? Respiratory: No respiratory distress.? Breath sounds normal.? Abdomen: Soft and diffusely tender throughout w/ a distended abdomen with normoactive bowel sounds..? Skin: Skin warm and dry.? Normal skin color.? Normal skin turgor.? Extremities: No lower extremity edema.? No calf ttp. 5/5 strength to bilateral upper and lower extremities Neuro: Oriented X 3.? No motor deficit.? No sensory deficit. CN 2-12 intact Course Reevaluation(s) Reevaluation #1: CBC appears to be around patient's baseline. Chemistry with no acute findings requiring intervention. Lipase pending. UA and CT abdomen and pelvis pending. Time: 13:00 Reevaluation #2: Briefly discussed this case with Gastroenterology who states if scan is normal patient can be discharged with short course of steroids. If scan abnormal or shows obstruction patient should be kept in the hospital, and if patient is not tolerating p.o. he should also be kept in the hospital for further evaluation and treatment. Time: 14:21 Reevaluation #3: Patient's CT abdomen pelvis was stable postsurgical changes following colectomy, no evidence of active inflammatory bowel disease or obstruction. Small bilateral renal stones. Patient to be discharged home with prednisone. Pain improved however still present. Will have him follow-up with [facility] GI as patient is followed by them. Advised to return with new or worsening symptoms. Patient tolerating p.o. in fluids at time of discharge. Time: 14:29 Medications Administered Discontinued Medications Generic Name Dose Route Start Last Admin Trade Name Freq PRN Reason Stop Dose Admin Hydromorphone HCl 0.5 mg 01/31/23 10:24 01/31/23 10:48 Hydromorphone Hcl 0.5 Mg/0.5 Ml Syringe IVPUSH 01/31/23 10:25 0.5 mg ONCE ONE Administration Protocol Hydromorphone HCl 0.5 mg 01/31/23 12:12 01/31/23 12:30 Hydromorphone Hcl 0.5 Mg/0.5 Ml Syringe IVPUSH 01/31/23 12:13 0.5 mg ONCE ONE Administration Protocol Promethazine HCl 12.5 mg/ 50.5 mls @ 202 mls/hr 01/31/23 10:49 01/31/23 11:11 Sodium Chloride IV 01/31/23 10:50 202 mls/hr ONCE ONE Administration Iohexol 85 ml 01/31/23 12:11 01/31/23 12:11 Iohexol 350 Mg/Ml 75 Ml Infus..Btl IV 01/31/23 12:12 85 ml ONCE ONE Administration Medical Decision Making Medical Decision Making [facility] Narrative: 1009 42-year-old male presents with diffuse abdominal pain, nausea, vomiting, for the past 2 days not tolerating p.o. history of Crohn's disease Physical exam significant for diffuse abdominal tenderness and abdominal distention w/ normoactive bowel sounds. Likely a Crohn's flare. Unlikely acute abdomen, diverticulitis, cholecystitis, appendicitis, mesenteric ischemia. Also some suspicion for bowel obstruction due to patient's history. Will rule out dehydration, electrolyte abnormalities and UTI. Labs, imaging, urine. Differential Diagnosis Differential Diagnoses: The differential diagnosis associated with the presentation includes Likely a Crohn's flare. Unlikely acute abdomen, diverticulitis, cholecystitis, appendicitis, mesenteric ischemia. Also some suspicion for bowel obstruction due to patient's history. Will rule out dehydration, electrolyte abnormalities and UTI. Admission/Observation Consideration of admission/observation: Escalation of care including admission/observation considered possible Consult Healthcare Provider Management of the patient was discussed with: Drilling Supervisor (GI) Lab Data [facility] Lab Attestation statement: I reviewed the patient's lab results. 01/31/23 09:17 01/31/23 09:17 Labs: Lab Results 01/31/23 01/31/23 01/31/23 Range/Units 09:17 09:17 09:17 WBC 5.1 (4.8-10.8) X10*3/uL RBC 4.31 L (4.60-5.80) X10*6/uL Hgb 13.7 L (14.0-18.0) g/dl Hct 40.1 L (42.0-52.0) % MCV 93.0 (80.0-98.0) fL MCH 31.8 (27.0-33.0) pg MCHC 34.2 (31.0-36.0) g/dl RDW 12.2 (11.0-16.0) % Plt Count 156 L (160-400) X10*3/uL MPV 10.5 (9.4-12.4) fL Immature Gran % (Auto) 0.2 (0.0-0.4) % Neut % (Auto) 63.5 (45-73) % Lymph % (Auto) 29.4 (20-40) % [place] % (Auto) 4.9 (2-11) % Eos % (Auto) 1.4 (0-4) % Baso % (Auto) 0.6 (0-2) % Lymph # (Auto) 1.5 (1.2-4.9) X10*3/uL [place] # (Auto) 0.3 (0.1-1.2) X10*3/uL Eos # (Auto) 0.1 (0.0-0.4) X10*3/uL Baso # (Auto) 0.0 (0.0-0.2) X10*3/uL Abs Immat Gran (auto) 0.01 (0.00-0.03) X10*3/uL Absolute Neuts (auto) 3.3 (2.0-8.3) x10*3/uL Absolute Nucleated RBC 0.000 (0.0-0.012) X10*3/uL Nucleated RBC % (auto) 0.0 (0.0-0.2) /100WBC ESR 7 (0-15) MM/HR Sodium 141 (135-145) mmol/L Potassium 4.1 (3.3-5.1) mmol/L Chloride 104 (96-108) mmol/L Carbon Dioxide 30 H (22-29) mmol/L Anion Gap 11 L (12-20) BUN 9 (9-16) mg/dL Creatinine 0.78 (0.5-1.4) mg/dL Estim Creat Clear Calc 105.1 Estimated GFR > 60 Random Glucose 128 H (60-115) mg/dL Calcium 9.8 (8.4-10.2) mg/dL Total Bilirubin 1.0 (0.0-1.0) mg/dL AST 21 (5-37) U/L ALT 24 (0-40) U/L Alkaline Phosphatase 65 (39-117) U/L C-Reactive Protein < 0.10 (< or = 0.50) mg/dL Total Protein 7.6 (6.5-8.0) g/dL Albumin 4.2 (3.5-5.0) g/dL Lipase 58 (8-78) U/L Independent Interpretation I performed an independent interpretation of an: CT Scan ( CT/CT abdomen pelvis w IV con IMPRESSION: Stable postsurgical changes following colectomy. No evidence of active inflammatory bowel disease or obstruction. Small bilateral renal stones. Fleischner guidelines were followed.) Radiology Impression Discussion of test interpretation with radiology: I have reviewed the radiologist's reading. Prescription Management I considered prescription management with: Other (Prednisone) Core Measures AMI core measures followed: Yes Measure exclusions: not indicated Critical Care Time Critical Care Time Critical Care Time: Yes Total Critical Care Time: 45 Attestation: I attest to this time spent taking care of the patient, obtaining history, physical, reviewing labs, imaging, speaking to my attending, speaking to specialist. Discharge Plan Discharge Clinical Impression: Crohn's disease, Abdominal pain Patient Disposition: Home, Self-Care Instructions: Crohn Disease (ED), Abdominal Pain (ED) Additional Instructions: Take your medications as prescribed. If you were prescribed antibiotics today, it is important that you take your medication to their entirety, do not skip any doses, do not finish them early. Follow-up with your primary care provider this week. Follow-up with GI Return to the emergency department with new or worsening symptoms. Such as fevers, chills, chest pain, shortness of breath, nausea, vomiting, dizziness, headache, vision changes, lethargy, inability tolerate food by mouth In case of emergency call 911 Please stick to a bland diet. CT/CT abdomen pelvis w IV con IMPRESSION: Stable postsurgical changes following colectomy. No evidence of active inflammatory bowel disease or obstruction. Small bilateral renal stones. Fleischner guidelines were followed. Prescriptions: New prednisone 20 mg tablet 60 mg PO DAILY 5 Days Qty: 15 0RF No Action tizanidine 4 mg tablet 6 mg PO BEDTIME PRN (Reason: Muscle Spasm) 30 Days Qty: 135 3RF propranolol 10 mg tablet 10 mg PO BID 90 Days Qty: 180 1RF magnesium oxide 400 mg (241.3 mg magnesium) tablet 400 mg PO BEDTIME 30 Days Qty: 30 6RF Rx Instructions: may hold for loose stools topiramate 25 mg tablet 25 - 50 mg PO DAILY 30 Days Qty: 60 6RF hydrocortisone 1 % cream 1 appl topical BID PRN (Reason: Itching) tramadol 50 mg tablet 50 mg PO BID PRN (Reason: moderate pain (scale score 5-6)) Qty: 14 0RF promethazine 25 mg tablet 25 mg PO Q6H PRN (Reason: nausea and vomiting) Qty: 10 0RF metronidazole 500 mg tablet 500 mg PO BID 7 Days Qty: 14 0RF oxycodone 5 mg tablet 5 mg PO Q8H PRN (Reason: pain) Qty: 5 0RF Rx Instructions: Partial Fill upon patient request. docusate sodium [Colace] 100 mg capsule 100 mg PO BID PRN (Reason: Constipation) Qty: 14 0RF polyethylene glycol 3350 [Miralax] 17 gram/dose powder 17 g PO DAILY Qty: 119 0RF ondansetron HCl 4 mg tablet 4 mg PO Q8H Qty: 14 0RF clonazepam 1 mg tablet 1 tab PO BID PRN (Reason: Anxiety) omeprazole 20 mg capsule,delayed release(DR/EC) 2 cap PO DAILY@0630 zolpidem 10 mg tablet 1 tab PO BEDTIME loratadine 10 mg tablet 1 tab PO DAILY PRN (Reason: Allergy Symptoms) Humira(CF) Pen 40 mg/0.4 mL pen injector kit 40 mg subcut TH@0900 multivitamin with folic acid [Daily-Davis (with folic acid)] 400 mcg tablet 1 tab PO DAILY oxycodone 5 mg capsule 5 mg PO BID PRN (Reason: severe pain) Qty: 6 0RF Rx Instructions: Partial Fill upon patient request. sumatriptan succinate 100 mg tablet 50 - 100 mg PO .COMPLEX PRN (Reason: migraine headache) 30 Days Qty: 12 6RF Rx Instructions: 50 - 100 mg orally at onset of headache, may repeat in 2 hrs PRN; max 2 tabs per day or 4 tabs/week (may take with Ibuprofen) Referrals: [facility] [place] [facility] [Provider Group] - 1 day Edenilson Harris MD [Primary Care Provider] - 2 days Stand Alone Forms: Work/School Release
[2023-01-31 10:29] LABS: Lipase 58 U/L (8-78)
[2023-01-31] MEDS: HYDROmorphone HCl 0.5 MG/0.5 ML SYRINGE IVPUSH ×2 (10:48→12:30)
[2023-01-31 11:51] LABS: C Reactive Protein < 0.10 mg/dL (< or = 0.50)
[2023-01-31] MEDS: iohexoL 350 MG/ML 75 ML INFUS..BTL 85 ML IV (12:11)
[2023-01-31 12:45] LABS: Erythrocyte Sedimentation Rate 7 MM/HR (0-15)
[2023-01-31 14:03] VITALS: BP 103/74; PULSE 51; RESP 16; TEMP 36.8; O2SAT 98
== END 2023-01-31 14:46 | disposition home or self-care (01) ==
PROVIDERS: Physician Assistant; Emergency Provider Emergency Medicine Emergency Medical Services; PCP Allergy & Immunology Allergy
DX: K50.90 Crohn's disease, unspecified, without complications (principal); R10.9 Unspecified abdominal pain; Z79.899 Other long term (current) drug therapy
CPT/HCPCS: 36415; 74177; 80053; 83690; 85025; 85652; 86140; 96374; 96375; 96376; 99283; 99284; J1170; J2550; Q9967

== ENCOUNTER 2023-03-25 10:08 | Outpatient (REF) | payer OTHER, SELFPAY ==
[2023-03-25 11:32] LABS: MANUAL DIFF FLAG NO
[2023-03-25 11:56] LABS: Basophils Percent Auto 0.8 % (0-2); Eosinophils Absolute Auto 0.1 X10*3/uL (0.0-0.4); Eosinophils Percent Auto 1.3 % (0-4); Hematocrit 44.2 % (42.0-52.0); Hemoglobin 14.7 g/dl (14.0-18.0); Imm Gran Abs Auto 0.01 X10*3/uL (0.00-0.03); Imm Gran Pct Auto 0.2 % (0.0-0.4); Lymphocytes Absolute Auto 1.8 X10*3/uL (1.2-4.9); Lymphocytes Percent Auto 33.8 % (20-40); Mean Corpuscular HGB Conc 33.3 g/dl (31.0-36.0); Mean Corpuscular Hemoglobin 30.6 pg (27.0-33.0); Mean Corpuscular Volume 91.9 fL (80.0-98.0); Mean Platelet Volume 10.9 fL (9.4-12.4); Monocytes Absolute Auto 0.3 X10*3/uL (0.1-1.2); Monocytes Percent Auto 5.7 % (2-11); Neutrophils Percent Auto 58.2 % (45-73); Platelet Count 183 X10*3/uL (160-400); Red Blood Count 4.81 X10*6/uL (4.60-5.80); Red Cell Distribution Width 12.1 % (11.0-16.0); White Blood Count 5.2 X10*3/uL (4.8-10.8)
[2023-03-25 12:13] LABS: Estimated Average Glucose 88 mg/dL; Hemoglobin A1C 107.2555 umol/L; Hemoglobin A1c % 4.7 % (<6.0)
[2023-03-25 12:24] LABS: Alanine Aminotransferase 29 U/L (0-40); Albumin Level 4.4 g/dL (3.5-5.0); Alkaline Phosphatase 67 U/L (39-117); Anion Gap 13 (12-20); Aspartate Amino Transferase 31 U/L (5-37); Bilirubin Total 1.1 mg/dL (0.0-1.0); Blood Urea Nitrogen 9 mg/dL (9-16); Calcium 9.7 mg/dL (8.4-10.2); Carbon Dioxide 27 mmol/L (22-29); Chloride 101 mmol/L (96-108); Cholesterol 218 mg/dL (<200); Estimated Glomerular Filt Rate > 60; Glucose Random 91 mg/dL (60-115); HDL Cholesterol 63 mg/dL (>40); Iron 103 mcg/dL (45-160); LDL Cholesterol Calculated 118 mg/dL (<100); Percent Iron Saturation 34 % (15-50); Sodium 137 mmol/L (135-145); Total Iron Binding Capacity 304 mcg/dL (228-428); Total Protein 8.3 g/dL (6.5-8.0); Triglycerides 188 mg/dL (<150); Unsaturated Iron Binding 201 ug/dL
[2023-03-25 12:40] LABS: Syphilis Screen Nonreactive (Nonreactive)
[2023-03-25 12:46] LABS: Ferritin 126 ng/mL (20-250); TSH reflex Free T4 1.97 uIU/mL (0.32-4.0)
[2023-03-25 12:52] LABS: Folate 13.4 ng/mL (> or = 4.0); Vitamin B12 590 pg/mL (200-900)
[2023-03-25 13:36] LABS: CT PCR NOT DETECTED (Not Detect.); NG PCR NOT DETECTED (Not Detect.)
[2023-03-26 08:58] LABS: ~HepC Num1 0.37 S/CO (0.00-0.79); ~Hepatitis C Antibody Nonreactive (Nonreactive)
[2023-03-26 09:45] LABS: HBS Num1 0.23 mIU/mL (0-7.99); HBc Num1 0.06 S/CO (0.00-0.79); HIV AB/AG Nonreactive (Nonreactive); HIV Num 1 0.06 S/CO (0.00-0.99); Hepatitis B Core Antibody Nonreactive (Nonreactive); Hepatitis B Surface Antigen Negative (Negative); ~Hepatitis B Surface Antibody NONREACTIVE (Nonreactive)
[2023-03-31 01:22] LABS: VITAMIN D (1,25 OH) D3 33 pg/mL; Vit D (1,25-Dihydroxy) Total 45 pg/mL (18-72); Vitamin D (1,25 OH) D2 12 pg/mL
== END 2023-03-25 10:09 | disposition home or self-care (01) ==
LOC: HO.HHCL 10:08
PROVIDERS: Visit Provider Student in an Organized Health Care Education/Training Program
DX: Z00.00 Encounter for general adult medical examination without abnormal findings (principal); Z11.4 Encounter for screening for human immunodeficiency virus [HIV]; Z20.2 Contact with and (suspected) exposure to infections with a predominantly sexual mode of transmission; E78.5 Hyperlipidemia, unspecified; Z13.0 Encounter for screening for diseases of the blood and blood-forming organs and certain disorders involving the immune mechanism; Z13.1 Encounter for screening for diabetes mellitus
CPT/HCPCS: 0353U; 80053; 80061; 82607; 82652; 82728; 82746; 83036; 83540; 84443; 85025; 86704; 86706; 86780; 86803; 87340; 87389

== ENCOUNTER 2023-04-06 07:46 | Emergency (ER) | payer OTHER, SELFPAY ==
--- NOTE | ~2023-04-06 | CT_ITS ---
EXAMINATION: CT ABDOMEN AND PELVIS WITH CONTRAST CLINICAL INFORMATION: History of Crohn's. Abdominal pain and guarding with nausea vomiting and diarrhea. COMPARISON: CT abdomen and pelvis 01/31/2023 TECHNIQUE: Multidetector volumetric images were obtained from the superior aspect of the liver through the pubic symphysis following administration 85 mL of Omnipaque 350 intravenous contrast. Sagittal and coronal reformatted images were obtained on the technologist's workstation. Oral contrast: No This CT examination was performed using dose optimization techniques as appropriate, variously including the following: *Automated exposure control *Adjustment of mA and/or kV according to patient size (this includes techniques or standardized protocols for targeted exams where dose is matched to indication/reason for exam; i.e. extremities or head) *Use of iterative reconstruction technique DLP: 474 mGy-cm FINDINGS: LUNG BASES: The visualized lung bases are unremarkable. LIVER, GALLBLADDER, AND BILIARY TREE: The liver is normal in size, shape, and attenuation. No focal hepatic lesion or biliary ductal dilatation is present. The gallbladder has been surgically removed. PANCREAS: Unremarkable. SPLEEN: Unremarkable. ADRENAL GLANDS: Unremarkable. KIDNEYS AND URETERS: The kidneys are normal in size, shape, and attenuation. The tumor nonobstructive radiopaque calculi suspected in the midpole right kidney and lower pole left kidney. No caliectasis or hydronephrosis seen BLADDER: Unremarkable. GASTROINTESTINAL TRACT: Stomach is nondistended and appears unremarkable. The small bowel loops are normal calibre except for small segment of small bowel loop in the left midabdomen axial image 38/3. It could just be peristalsis. There are surgical nuria in the left upper quadrant, anorectal junction and right lower quadrant. Annular sutures are seen at the anastomotic segment right lower quadrant. No free air or free fluid. ABDOMINAL WALL: A small lumbar canal hernia containing fat is noted. A small fat-containing right inguinal hernia is noted. LYMPH NODES: Normal. VASCULAR: Unremarkable. PELVIC VISCERA: The prostate gland is normal size. No free fluid. No abnormal pelvic or inguinal lymph nodes. OSSEOUS STRUCTURES: No aggressive lytic or sclerotic process seen. CT/CT abdomen pelvis w IV con IMPRESSION: 1. No acute intra-abdominal process seen. 2. Nonobstructive bilateral nephrolithiasis. 3. Small fat-containing right inguinal hernia. 4. Postsurgical changes in the left upper quadrant, anorectal junction and right lower quadrant. Annular sutures are seen at the anastomotic segment in the right lower quadrant. Fleischner guidelines were followed.
[2023-04-06 07:53] VITALS: BP 111/67; PULSE 90; RESP 18; TEMP 36.7; O2SAT 99; BMI 26.6
[2023-04-06 08:13] LABS: MANUAL DIFF FLAG NO
[2023-04-06 08:22] LABS: Basophils Percent Auto 0.4 % (0-2); Eosinophils Absolute Auto 0.1 X10*3/uL (0.0-0.4); Eosinophils Percent Auto 1.3 % (0-4); Hematocrit 41.6 % (42.0-52.0); Hemoglobin 14.6 g/dl (14.0-18.0); Imm Gran Abs Auto 0.01 X10*3/uL (0.00-0.03); Imm Gran Pct Auto 0.2 % (0.0-0.4); Lymphocytes Absolute Auto 1.5 X10*3/uL (1.2-4.9); Lymphocytes Percent Auto 32.2 % (20-40); Mean Corpuscular HGB Conc 35.1 g/dl (31.0-36.0); Mean Corpuscular Hemoglobin 31.1 pg (27.0-33.0); Mean Corpuscular Volume 88.7 fL (80.0-98.0); Mean Platelet Volume 10.1 fL (9.4-12.4); Monocytes Absolute Auto 0.3 X10*3/uL (0.1-1.2); Monocytes Percent Auto 5.8 % (2-11); Neutrophils Absolute Auto 2.7 x10*3/uL (2.0-8.3); Neutrophils Percent Auto 60.1 % (45-73); Platelet Count 173 X10*3/uL (160-400); Red Blood Count 4.69 X10*6/uL (4.60-5.80); White Blood Count 4.5 X10*3/uL (4.8-10.8)
--- NOTE | 2023-04-06 08:23 | ED.GENADULT ---
HPI - General Adult General Chief complaint: Abdominal Pain Stated complaint: Chrons flare Time Seen by Provider: 04/06/23 08:23 Source: patient, RN notes reviewed and old records reviewed Mode of arrival: ambulatory History of Present Illness HPI narrative: 42-year-old male with past medical history of Crohn's disease on Humira, SBO, IBD, anxiety, migraines, presenting to the ED complaining of diffuse abdominal pain, nausea, vomiting, and diarrhea x 2 days. Reports inability to tolerate p.o. states has been unable to keep his medications down. Reports some bloody diarrhea yesterday, resolved today. Patient is followed by Gastroenterology at [facility]. Denies fever/chills, dysuria/hematuria, suspicious food intake Onset (ago): day(s) Related Data Home Medications Medication Instructions Recorded Confirmed adalimumab 40 mg/0.4 mL 40 mg subcut TH@0900 08/19/21 06/11/22 subcutaneous pen kit (Humira(CF) Pen) clonazepam 1 mg tablet 1 tab PO BID PRN Anxiety 08/19/21 06/11/22 loratadine 10 mg tablet 1 tab PO DAILY PRN Allergy Symptoms 08/19/21 06/11/22 omeprazole 20 mg capsule,delayed 2 cap PO DAILY@0630 08/19/21 06/11/22 release zolpidem 10 mg tablet 1 tab PO BEDTIME 08/19/21 06/11/22 hydrocortisone 1 % topical cream 1 appl topical BID PRN Itching 09/18/21 06/11/22 multivitamin with folic acid 400 1 tab PO DAILY 06/11/22 06/11/22 mcg tablet (Daily-Davis (with folic acid)) Previous Rx's Medication Instructions Recorded tizanidine 4 mg tablet 6 mg (1.5 x 4 mg) PO BEDTIME PRN 03/25/22 Muscle Spasm 30 days #135 tabs propranolol 10 mg tablet 10 mg PO BID 90 days #180 tabs 03/26/22 tramadol 50 mg tablet 50 mg PO BID PRN moderate pain 04/17/22 (scale score 5-6) #14 tabs sumatriptan succinate 100 mg tablet 50 - 100 mg (0.5 - 1 x 100 mg) PO 06/14/22 .COMPLEX PRN migraine headache 30 days #12 tabs magnesium oxide 400 mg (241.3 mg 400 mg PO BEDTIME 30 days #30 tabs 07/03/22 magnesium) tablet metronidazole 500 mg tablet 500 mg PO BID 7 days #14 tabs 07/14/22 oxycodone 5 mg tablet 5 mg PO Q8H PRN pain #5 tabs 07/14/22 promethazine 25 mg tablet 25 mg PO Q6H PRN nausea and 07/14/22 vomiting #10 tabs topiramate 25 mg tablet 25 - 50 mg (1 - 2 x 25 mg) PO 09/14/22 DAILY 30 days #60 tabs docusate sodium 100 mg capsule 100 mg PO BID PRN Constipation #14 09/28/22 (Colace) caps ondansetron HCl 4 mg tablet 4 mg PO Q8H #14 tabs 09/28/22 polyethylene glycol 3350 17 17 g PO DAILY #119 grams 09/28/22 gram/dose oral powder (Miralax) oxycodone 5 mg capsule 5 mg PO BID PRN severe pain #6 caps 11/02/22 prednisone 20 mg tablet 60 mg (3 x 20 mg) PO DAILY 5 days 01/31/23 #15 tabs hydrocortisone 100 mg/60 mL enema 100 mg (60 mL) AL DAILY 2 weeks 04/06/23 #840 mL Allergies Allergy/AdvReac Type Severity Reaction Status Date / Time ondansetron [Ondansetron] Allergy Mild HIVES Verified 01/31/23 09:03 Sulfa (Sulfonamide Allergy Mild UNKNOWN Verified 01/31/23 09:03 Antibiotics) ketorolac Allergy Unknown Unknown Verified 01/31/23 09:03 meperidine [Demerol] Allergy Unknown Unknown Verified 01/31/23 09:03 metoclopramide [Reglan] Allergy Unknown Unknown Verified 01/31/23 09:03 morphine [Morphine] Allergy Unknown RASH Verified 01/31/23 09:03 haloperidol [From Haldol] Allergy Anaphylaxis Verified 01/31/23 09:03 ketamine Allergy Unknown Verified 01/31/23 09:03 From REGLAN Allergy Mild PT UNSURE Uncoded 06/03/22 13:18 BUT STATES HE IS ALLERGIC Compro Allergy Unknown Unknown Uncoded 06/03/22 13:18 From COMPAZINE Allergy Unknown ITCHING Uncoded 06/03/22 13:18 From Demerol Allergy Unknown ITCHY HIVES Uncoded 06/03/22 13:18 From Toradol Allergy Unknown UNK Uncoded 06/03/22 13:18 Review of Systems Review of Systems: Constitutional: No Fever, No Chills, No Fatigue, No Malaise ENT/Mouth: o Ear Pain, hematochezia No sore throat, No Rhinorrhea, No Swallowing Difficulty Eyes: No Eye Pain, No Swelling, No Redness,No Vision Changes Cardiovascular: No Chest Pain, No SOB, No Dyspnea on Exertion, No Orthopnea, No Edema, No Palpitations Respiratory: No Cough, No Sputum, No Dyspnea Gastrointestinal: + Nausea, + Vomiting, + Diarrhea, No Constipation, + Abdominal pain, + Hematochezia, No Melena Genitourinary: No irregular bleeding, No Dysuria, No Urinary Frequency, No Hematuria, No Flank Pain Musculoskeletal: No joint pain, No Myalgias, No Joint Swelling Skin: No Skin Lesions, No rash Neuro: No Weakness, No Headache Yes all other systems are reviewed and are negative Constitutional: Constitutional: Reports as per [facility] Past Medical History Attestation statement: The following information was validated with the patient. Source: old records reviewed Medical History Cervicalgia Migraine Anxiety Crohn's disease IBD (inflammatory bowel disease) Partial small bowel obstruction Surgical History History of colostomy reversal S/P colostomy History of surgery on arm Hx of colonoscopy History of esophagogastroduodenoscopy (EGD) Family History Family History Mother HTN (hypertension) Social History Social History Household Members: Spouse Housing: House Do you presently have visiting nurse or other home services: No Alcohol intake: never Patient Tobacco Use Status: Never used Tobacco Advance Directives: No Advance Directives Information Provided: No service: No Current occupational status: disabled Physical Exam ED Vital Signs: Vital Signs - 24 hr 04/06/23 07:53 04/06/23 10:33 04/06/23 12:34 Temperature 98.1 F 98.1 F 98.2 F Pulse Rate 90 65 78 Respiratory Rate 18 18 16 Blood Pressure 111/67 102/68 95/58 L Pulse Oximetry 99 98 97 Oxygen Delivery Method Room Air Room Air Room Air BMI result Body Mass Index 26.6 Const General: cooperative, healthy appearing and no acute distress Orientation/consciousness: patient oriented x3 Limitations: no limitations HENMT Head: Yes normal to inspection and Yes atraumatic Ears: hearing grossly normal bilaterally General nose exam: Normal external nose present Face and sinus: Yes normal facial exam Eyes General: appearance normal, both eyes and all related structures EOM: EOMs intact bilaterally Neck Neck: Yes normal visual inspection and Yes no meningeal signs Resp Effort & Inspection: normal respiratory effort and no respiratory distress Auscultation: clear to auscultation bilaterally Cardio Rate: regular rate Heart sounds: S1 normal heart sound present and S2 normal heart sound present GI Other: Old surgical scars noted Inspection: Yes normal to inspection and Yes distended Palpation (GI): Soft to palpation, Tenderness to palpation present (GI) (Diffusely with guarding) with no rebound tenderness, no guarding and not rigid General: Yes no CVA tenderness Back/Spine/Pelvis Back: no CVA tenderness Skin Rashes: no rashes Wounds: no wounds Neuro General: patient oriented x3, tone normal and no meningeal signs Cranial nerves: Yes CN's II-XII intact bilaterally Gait exam (Neuro): Normal gait present Extrem General: Yes normal to inspection Course Course Course Narrative: -1045--mild leukopenia. Labs otherwise reassuring CT abdomen pelvis w IV con IMPRESSION: 1. No acute intra-abdominal process seen. 2. Nonobstructive bilateral nephrolithiasis. 3. Small fat-containing right inguinal hernia. 4. Postsurgical changes in the left upper quadrant, anorectal junction and right lower quadrant. Annular sutures are seen at the anastomotic segment in the right lower quadrant. Fleischner guidelines were followed. > 1053--On re-evaluation patient is still reports significant abdominal pain and nausea, unable to tolerate p.o. Will consult GI give additional pain medication/antiemetics > case discussed with GI, Dr. Yang, suspicious patient may be in opiate withdrawal w/hx substance abuse, will obtain [place]. If negative recommended steroid enemas. If patient unable to tolerate p.o./unable to control pain will be admitted for further management -tox screen negative. Patient requesting discharge, reports symptomatic improvement, tolerating p.o. in the ED. patient unable to provide stool sample in the ED, discharged with outpatient slip. GI recommended steroid enemas x 2 weeks and will book him for outpatient follow-up. Results discussed with patient including worrisome signs and symptoms and strict return precautions, and when to return to the emergency department. They verbalized understanding and feel safe for discharge at this time. Medications Administered Discontinued Medications Generic Name Dose Route Start Last Admin Trade Name Lenore PRN Reason Stop Dose Admin Diphenhydramine HCl 25 mg 04/06/23 08:30 04/06/23 08:51 Diphenhydramine Hcl 50 Mg/Ml Vial IVPUSH 04/06/23 08:31 25 mg ONCE ONE Administration Hydromorphone HCl 0.5 mg 04/06/23 08:30 04/06/23 08:50 Hydromorphone Hcl 0.5 Mg/0.5 Ml Syringe IVPUSH 04/06/23 08:31 0.5 mg ONCE ONE Administration Protocol Hydromorphone HCl 1 mg 04/06/23 10:50 04/06/23 10:58 Hydromorphone Hcl 1 Mg/Ml Syringe IVPUSH 04/06/23 10:51 1 mg ONCE ONE Administration Protocol Sodium Chloride 1,000 mls @ 999 mls/hr 04/06/23 08:30 04/06/23 10:03 Ns IV 04/06/23 09:30 Infused .Q1H1M DULCE MARIA Infusion Promethazine HCl 25 mg/ Sodium 51 mls @ 204 mls/hr 04/06/23 08:59 04/06/23 10:14 Chloride IV 04/06/23 09:00 Infused ONCE ONE Infusion Sodium Chloride 1,000 mls @ 999 mls/hr 04/06/23 09:45 04/06/23 12:22 Ns IV 04/06/23 10:45 Infused .Q1H1M DULCE MARIA Infusion Iohexol 85 ml 04/06/23 09:56 04/06/23 09:56 Iohexol 350 Mg/Ml 100 Ml Infus..Btl IV 04/06/23 09:57 85 ml ONCE ONE Administration Metoclopramide HCl 10 mg 04/06/23 08:34 04/06/23 08:56 Metoclopramide Hcl 10 Mg/2 Ml Vial IVPUSH 04/06/23 08:35 Not Given ONCE ONE Medical Decision Making Medical Decision Making MDM Narrative: 42-year-old male with past medical history of Crohn's disease on Humira, SBO, IBD, anxiety, migraines, presenting to the ED complaining of diffuse abdominal pain, nausea, vomiting, and diarrhea x 2 days. On exam vital signs stable, NAD, nontoxic, appears uncomfortable, abdomen distended diffusely tender with guarding, no rebound, no CVAT. Concern for Crohn's flare vs diverticulitis/appendicitis vs SBO. Lower suspicion for cholecystitis/pancreatitis, or ischemic bowel Plan: Labs, UA, CT AP, IVF, pain control, antiemetics, re-evaluate Please refer to course for remaining clinical decision making, interpretation of labs/imaging results, and discussions with consultants and/or family members. 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 04/06/23 08:09 04/06/23 08:09 Labs: Lab Results 04/06/23 04/06/23 Range/Units 08:09 12:36 WBC 4.5 L (4.8-10.8) X10*3/uL RBC 4.69 (4.60-5.80) X10*6/uL Hgb 14.6 (14.0-18.0) g/dl Hct 41.6 L (42.0-52.0) % MCV 88.7 (80.0-98.0) fL MCH 31.1 (27.0-33.0) pg MCHC 35.1 (31.0-36.0) g/dl RDW 12.0 (11.0-16.0) % Plt Count 173 (160-400) X10*3/uL MPV 10.1 (9.4-12.4) fL Immature Gran % (Auto) 0.2 (0.0-0.4) % Neut % (Auto) 60.1 (45-73) % Lymph % (Auto) 32.2 (20-40) % Rice % (Auto) 5.8 (2-11) % Eos % (Auto) 1.3 (0-4) % Baso % (Auto) 0.4 (0-2) % Lymph # (Auto) 1.5 (1.2-4.9) X10*3/uL Rice # (Auto) 0.3 (0.1-1.2) X10*3/uL Eos # (Auto) 0.1 (0.0-0.4) X10*3/uL Baso # (Auto) 0.0 (0.0-0.2) X10*3/uL Abs Immat Gran (auto) 0.01 (0.00-0.03) X10*3/uL Absolute Neuts (auto) 2.7 (2.0-8.3) x10*3/uL Absolute Nucleated RBC 0.000 (0.0-0.012) X10*3/uL Nucleated RBC % (auto) 0.0 (0.0-0.2) /100WBC Sodium 139 (135-145) mmol/L Potassium 3.5 (3.3-5.1) mmol/L Chloride 105 (96-108) mmol/L Carbon Dioxide 25 (22-29) mmol/L Anion Gap 13 (12-20) BUN 8 L (9-16) mg/dL Creatinine 0.81 (0.5-1.4) mg/dL Estim Creat Clear Calc 101.2 Estimated GFR > 60 Random Glucose 125 H (60-115) mg/dL Calcium 9.4 (8.4-10.2) mg/dL Magnesium 1.9 (1.6-2.6) mg/dL Total Bilirubin 1.1 H (0.0-1.0) mg/dL AST 20 (5-37) U/L ALT 21 (0-40) U/L Alkaline Phosphatase 60 (39-117) U/L C-Reactive Protein < 0.04 (< or = 0.50) mg/dL Total Protein 7.8 (6.5-8.0) g/dL Albumin 4.2 (3.5-5.0) g/dL Lipase 18 (8-78) U/L Urine Color Yellow Urine Appearance Clear Urine pH 5.5 (5.0-9.0) Ur Specific [place] 1.025 (1.005-1.025) Urine Protein Negative (Neg-Trace) mg/dL Urine Glucose (UA) Negative (Negative) mg/dL Urine Ketones Negative (Negative) mg/dL Urine Blood Negative (Negative) Urine Nitrite Negative (Negative) Ur Leukocyte Esterase Negative (Negative) Urine Opiates Screen Not Detected (Not Detect) Urine Fentanyl Screen Not Detected (Not Detect) Ur Barbiturates Screen Not Detected (Not Detect) Ur Phencyclidine Scrn Not Detected (Not Detect) Ur Amphetamines Screen Not Detected (Not Detect) U Benzodiazepines Scrn Not Detected (Not Detect) Urine Cocaine Screen Not Detected (Not Detect) U Marijuana (THC) Screen Not Detected (Not Detect) Radiology Impression Discussion of test interpretation with radiology: I have reviewed the radiologist's reading. External Record Review External record reviewed: Inpatient record, Office record, Outpatient record, Prior outpatient labs, Prior outpatient radiology, Primary care record and Outside ED record Tests considered The following testing was considered but not selected: As above Prescription Management I considered prescription management with: Pain Medication Chronic Conditions Patient?s care impacted by: Other (Crohn's disease) Discharge Plan Discharge Clinical Impression: Crohn's disease Patient Disposition: Home, Self-Care Instructions: Crohn Disease (ED) Additional Instructions: YOU NEED TO FOLLOW-UP WITH GASTROENTEROLOGY USE STEROID ENEMAS FOR THE NEXT 2 WEEKS PRESCRIBED IF SYMPTOMS PERSIST OR WORSEN YOU HAVE FEVER, PERSISTENT UNREMITTING PAIN/DIARRHEA OR VOMITING/WERE UNABLE TO EAT OR DRINK RETURN TO THE ED Prescriptions: New hydrocortisone 100 mg/60 mL enema 100 mg AL DAILY 14 Days Qty: 840 0RF No Action tizanidine 4 mg tablet 6 mg PO BEDTIME PRN (Reason: Muscle Spasm) 30 Days Qty: 135 3RF propranolol 10 mg tablet 10 mg PO BID 90 Days Qty: 180 1RF magnesium oxide 400 mg (241.3 mg magnesium) tablet 400 mg PO BEDTIME 30 Days Qty: 30 6RF Rx Instructions: may hold for loose stools topiramate 25 mg tablet 25 - 50 mg PO DAILY 30 Days Qty: 60 6RF hydrocortisone 1 % cream 1 appl topical BID PRN (Reason: Itching) tramadol 50 mg tablet 50 mg PO BID PRN (Reason: moderate pain (scale score 5-6)) Qty: 14 0RF promethazine 25 mg tablet 25 mg PO Q6H PRN (Reason: nausea and vomiting) Qty: 10 0RF metronidazole 500 mg tablet 500 mg PO BID 7 Days Qty: 14 0RF oxycodone 5 mg tablet 5 mg PO Q8H PRN (Reason: pain) Qty: 5 0RF Rx Instructions: Partial Fill upon patient request. docusate sodium [Colace] 100 mg capsule 100 mg PO BID PRN (Reason: Constipation) Qty: 14 0RF polyethylene glycol 3350 [Miralax] 17 gram/dose powder 17 g PO DAILY Qty: 119 0RF ondansetron HCl 4 mg tablet 4 mg PO Q8H Qty: 14 0RF clonazepam 1 mg tablet 1 tab PO BID PRN (Reason: Anxiety) omeprazole 20 mg capsule,delayed release(DR/EC) 2 cap PO DAILY@0630 zolpidem 10 mg tablet 1 tab PO BEDTIME loratadine 10 mg tablet 1 tab PO DAILY PRN (Reason: Allergy Symptoms) Humira(CF) Pen 40 mg/0.4 mL pen injector kit 40 mg subcut TH@0900 multivitamin with folic acid [Daily-Davis (with folic acid)] 400 mcg tablet 1 tab PO DAILY oxycodone 5 mg capsule 5 mg PO BID PRN (Reason: severe pain) Qty: 6 0RF Rx Instructions: Partial Fill upon patient request. prednisone 20 mg tablet 60 mg PO DAILY 5 Days Qty: 15 0RF sumatriptan succinate 100 mg tablet 50 - 100 mg PO .COMPLEX PRN (Reason: migraine headache) 30 Days Qty: 12 6RF Rx Instructions: 50 - 100 mg orally at onset of headache, may repeat in 2 hrs PRN; max 2 tabs per day or 4 tabs/week (may take with Ibuprofen) Referrals: [facility] [place] Gastroenterology Services [Provider Group] Interventions: ED Discharge Assessment Last Done: 04/06/23 13:57 Discharge Date/Time: 04/06/23 13:57
[2023-04-06 08:32] LABS: Alanine Aminotransferase 21 U/L (0-40); Albumin Level 4.2 g/dL (3.5-5.0); Alkaline Phosphatase 60 U/L (39-117); Anion Gap 13 (12-20); Aspartate Amino Transferase 20 U/L (5-37); Bilirubin Total 1.1 mg/dL (0.0-1.0); Blood Urea Nitrogen 8 mg/dL (9-16); Calcium 9.4 mg/dL (8.4-10.2); Carbon Dioxide 25 mmol/L (22-29); Chloride 105 mmol/L (96-108); Creatinine Clr Calc Pharmacy 101.2; Estimated Glomerular Filt Rate > 60; Glucose Random 125 mg/dL (60-115); Potassium 3.5 mmol/L (3.3-5.1); Sodium 139 mmol/L (135-145); Total Protein 7.8 g/dL (6.5-8.0)
[2023-04-06 08:49] LABS: C Reactive Protein < 0.04 mg/dL (< or = 0.50); Lipase 18 U/L (8-78); Magnesium 1.9 mg/dL (1.6-2.6)
[2023-04-06] MEDS: 0.9 % Sodium Chloride 1,000 ML 999 ML IV ×2 (08:50→10:19)
[2023-04-06] MEDS: HYDROmorphone HCl 0.5 MG/0.5 ML SYRINGE IVPUSH (08:50)
[2023-04-06] MEDS: diphenhydrAMINE HCL 50 MG/ML VIAL 25 MG IVPUSH (08:51)
[2023-04-06] MEDS: iohexoL 350 MG/ML 100 ML INFUS..BTL 85 ML IV (09:56)
[2023-04-06 10:33] VITALS: BP 102/68; PULSE 65; RESP 18; TEMP 36.7; O2SAT 98
[2023-04-06] MEDS: HYDROmorphone HCl 1 MG/ML SYRINGE IVPUSH (10:58)
[2023-04-06 12:34] VITALS: BP 95/58; PULSE 78; RESP 16; TEMP 36.8; O2SAT 97
[2023-04-06 12:49] LABS: Appearance Urine Clear; Color Urine Yellow; Glucose Urine UA Negative (Negative); Leukocyte Esterase Urine Negative (Negative); Nitrite Urine Negative (Negative); PH 5.5 (5.0-9.0); Specific Gravity - Urine 1.025 (1.005-1.025); Urine Blood Negative (Negative); Urine Ketones Negative (Negative); Urine Protein Negative (Neg-Trace)
[2023-04-06 12:50] LABS: Amphetamine Screen Urine Not Detected (Not Detect); Barbiturates, Urine Not Detected (Not Detect); Benzodiazepines Screen Urine Not Detected (Not Detect); Cannabinoid Screen Urine Not Detected (Not Detect); Cocaine Screen Urine Not Detected (Not Detect); Fentanyl, urine Not Detected (Not Detect); Opiate Screen Urine Not Detected (Not Detect); Phencyclidine Screen Urine Not Detected (Not Detect)
--- NOTE | 2023-04-06 13:53 | PC.NURSE ---
patient drank some juice without any incidence of vomiting
== END 2023-04-06 13:57 | disposition home or self-care (01) ==
PROVIDERS: Physician Assistant; Emergency Provider Emergency Medicine; PCP Internal Medicine
DX: K50.90 Crohn's disease, unspecified, without complications (principal); R10.2 Pelvic and perineal pain; R11.2 Nausea with vomiting, unspecified; Z79.899 Other long term (current) drug therapy
CPT/HCPCS: 36415; 74177; 80053; 80307; 81003; 83690; 83735; 85025; 86140; 96361; 96374; 96375; 96376; 99284; J1170; J1200; J2550; Q9967

== ENCOUNTER 2023-05-31 08:07 | Emergency (ER) | payer OTHER, SELFPAY ==
[2023-05-31 08:19] VITALS: BP 110/57; PULSE 68; RESP 16; TEMP 36.3; O2SAT 97; BMI 25.2
[2023-05-31 08:48] LABS: MANUAL DIFF FLAG NO
[2023-05-31 08:52] LABS: Basophils Percent Auto 0.4 % (0-2); Eosinophils Percent Auto 0.7 % (0-4); Hematocrit 39.7 % (42.0-52.0); Hemoglobin 14.1 g/dl (14.0-18.0); Imm Gran Abs Auto 0.01 X10*3/uL (0.00-0.03); Imm Gran Pct Auto 0.2 % (0.0-0.4); Lymphocytes Absolute Auto 1.3 X10*3/uL (1.2-4.9); Lymphocytes Percent Auto 28.7 % (20-40); Mean Corpuscular HGB Conc 35.5 g/dl (31.0-36.0); Mean Corpuscular Hemoglobin 31.5 pg (27.0-33.0); Mean Corpuscular Volume 88.6 fL (80.0-98.0); Mean Platelet Volume 10.4 fL (9.4-12.4); Monocytes Absolute Auto 0.3 X10*3/uL (0.1-1.2); Monocytes Percent Auto 5.4 % (2-11); Neutrophils Percent Auto 64.6 % (45-73); Platelet Count 145 X10*3/uL (160-400); Red Blood Count 4.48 X10*6/uL (4.60-5.80); Red Cell Distribution Width 12.5 % (11.0-16.0); White Blood Count 4.6 X10*3/uL (4.8-10.8)
[2023-05-31 09:04] LABS: Alanine Aminotransferase 59 U/L (0-40); Albumin Level 4.1 g/dL (3.5-5.0); Alkaline Phosphatase 70 U/L (39-117); Anion Gap 9 (12-20); Aspartate Amino Transferase 55 U/L (5-37); Bilirubin Direct 0.3 mg/dL (0.0-0.5); Bilirubin Total 0.8 mg/dL (0.0-1.0); Blood Urea Nitrogen 9 mg/dL (9-16); Calcium 9.2 mg/dL (8.4-10.2); Carbon Dioxide 26 mmol/L (22-29); Chloride 107 mmol/L (96-108); Creatinine Clr Calc Pharmacy 112.3; Estimated Glomerular Filt Rate > 60; Glucose Random 103 mg/dL (60-115); Lipase 21 U/L (8-78); Potassium 4.1 mmol/L (3.3-5.1); Sodium 138 mmol/L (135-145); Total Protein 7.5 g/dL (6.5-8.0)
--- NOTE | 2023-05-31 12:24 | PC.NURSE ---
NO ANSWER IN THE WR AT 1100
== END 2023-05-31 12:24 | disposition left against medical advice (07) ==
LOC: HO.ED 12:09
PROVIDERS: Emergency Provider Emergency Medicine; PCP Internal Medicine
DX: R10.9 Unspecified abdominal pain (principal); R11.2 Nausea with vomiting, unspecified; K50.90 Crohn's disease, unspecified, without complications
CPT/HCPCS: 36415; 80048; 80076; 83690; 85025; 99281; 99283

== ENCOUNTER 2023-06-01 07:17 | Emergency (ER) | payer OTHER, SELFPAY ==
[2023-06-01 07:30] VITALS: BP 102/64; PULSE 70; RESP 17; TEMP 36.4; O2SAT 98; BMI 25.6
--- NOTE | 2023-06-01 08:07 | ED.ABDPAIN ---
HPI - Abdominal Pain General Chief Complaint: Abdominal Pain Stated Complaint: Chrons flare Time Seen by Provider: 06/01/23 07:50 Source: patient Mode of arrival: ambulatory Limitations: no limitations History of Present Illness HPI narrative: 42-year-old male with a history of obstructive sleep apnea, Crohn's, anxiety, migraine, partial colectomy 2007 for Crohn's who presents emergency department for evaluation of 3 days of lower abdominal pain, bloating sensation, nausea and vomiting. Patient states that he has oxycodone for flare-ups of his Crohn pain the took 1 at 01:00 hours with no relief his discomfort he states that his pain is currently 7/10. Patient states the pain feels similar to his Crohn's flare up. In reviewing his records, patient has been seen here at least 6 times this year for similar pain, patient has had multiple CT scan which have mainly been negative. Related Data Home Medications Medication Instructions Recorded Confirmed adalimumab 40 mg/0.4 mL 40 mg subcut TH@0900 08/19/21 06/11/22 subcutaneous pen kit (Humira(CF) Pen) clonazepam 1 mg tablet 1 tab PO BID PRN Anxiety 08/19/21 06/11/22 loratadine 10 mg tablet 1 tab PO DAILY PRN Allergy Symptoms 08/19/21 06/11/22 omeprazole 20 mg capsule,delayed 2 cap PO DAILY@0630 08/19/21 06/11/22 release zolpidem 10 mg tablet 1 tab PO BEDTIME 08/19/21 06/11/22 hydrocortisone 1 % topical cream 1 appl topical BID PRN Itching 09/18/21 06/11/22 multivitamin with folic acid 400 1 tab PO DAILY 06/11/22 06/11/22 mcg tablet (Daily-Davis (with folic acid)) Previous Rx's Medication Instructions Recorded tizanidine 4 mg tablet 6 mg (1.5 x 4 mg) PO BEDTIME PRN 03/25/22 Muscle Spasm 30 days #135 tabs propranolol 10 mg tablet 10 mg PO BID 90 days #180 tabs 03/26/22 tramadol 50 mg tablet 50 mg PO BID PRN moderate pain 04/17/22 (scale score 5-6) #14 tabs sumatriptan succinate 100 mg tablet 50 - 100 mg (0.5 - 1 x 100 mg) PO 12/04/22 .COMPLEX PRN migraine headache 30 days #12 tabs magnesium oxide 400 mg (241.3 mg 400 mg PO BEDTIME 30 days #30 tabs 07/03/22 magnesium) tablet metronidazole 500 mg tablet 500 mg PO BID 7 days #14 tabs 07/14/22 oxycodone 5 mg tablet 5 mg PO Q8H PRN pain #5 tabs 07/14/22 promethazine 25 mg tablet 25 mg PO Q6H PRN nausea and 07/14/22 vomiting #10 tabs topiramate 25 mg tablet 25 - 50 mg (1 - 2 x 25 mg) PO 09/14/22 DAILY 30 days #60 tabs docusate sodium 100 mg capsule 100 mg PO BID PRN Constipation #14 09/28/22 (Colace) caps ondansetron HCl 4 mg tablet 4 mg PO Q8H #14 tabs 09/28/22 polyethylene glycol 3350 17 17 g PO DAILY #119 grams 09/28/22 gram/dose oral powder (Miralax) oxycodone 5 mg capsule 5 mg PO BID PRN severe pain #6 caps 11/02/22 prednisone 20 mg tablet 60 mg (3 x 20 mg) PO DAILY 5 days 01/31/23 #15 tabs hydrocortisone 100 mg/60 mL enema 100 mg (60 mL) LA DAILY 2 weeks 04/06/23 #840 mL Allergies Allergy/AdvReac Type Severity Reaction Status Date / Time ondansetron [Ondansetron] Allergy Mild HIVES Verified 06/01/23 07:34 Sulfa (Sulfonamide Allergy Mild UNKNOWN Verified 06/01/23 07:34 Antibiotics) ketorolac Allergy Unknown Unknown Verified 06/01/23 07:34 meperidine [Demerol] Allergy Unknown Unknown Verified 06/01/23 07:34 metoclopramide [Reglan] Allergy Unknown Unknown Verified 06/01/23 07:34 morphine [Morphine] Allergy Unknown RASH Verified 06/01/23 07:34 haloperidol [From Haldol] Allergy Anaphylaxis Verified 06/01/23 07:34 ketamine Allergy Unknown Verified 06/01/23 07:34 From REGLAN Allergy Mild PT UNSURE Uncoded 06/03/22 13:18 BUT STATES HE IS ALLERGIC Compro Allergy Unknown Unknown Uncoded 06/03/22 13:18 From COMPAZINE Allergy Unknown ITCHING Uncoded 06/03/22 13:18 From Demerol Allergy Unknown ITCHY HIVES Uncoded 06/03/22 13:18 From Toradol Allergy Unknown UNK Uncoded 06/03/22 13:18 [facility] Past Medical History [facility] Narrative: Social history: He denies tobacco, alcohol and drug use Medical History Cervicalgia Migraine Anxiety Crohn's disease IBD (inflammatory bowel disease) Partial small bowel obstruction Surgical History History of colostomy reversal S/P colostomy History of surgery on arm Hx of colonoscopy History of esophagogastroduodenoscopy (EGD) Family History Family History Mother HTN (hypertension) Social History Household Members: Spouse Housing: House Do you presently have visiting nurse or other home services: No Alcohol intake: never Patient Tobacco Use Status: Never used Tobacco Use of substances other than those prescribed or required for medical reasons: No Advance Directives: No Advance Directives Information Provided: Yes service: No Current occupational status: disabled Physical Exam ED Vital Signs: Vital Signs - 24 hr 06/01/23 07:30 06/01/23 08:55 06/01/23 10:04 Temperature 97.5 F Pulse Rate 70 84 60 Respiratory Rate 17 16 20 Blood Pressure 102/64 103/65 Pulse Oximetry 98 98 99 Oxygen Delivery Method Room Air Room Air Room Air 06/01/23 12:56 Temperature 98.3 F Pulse Rate 63 Respiratory Rate 58 H Blood Pressure 117/79 Pulse Oximetry 98 Oxygen Delivery Method Room Air BMI result Body Mass Index 25.6 Vital signs were normal Exam General: Awake, alert in no distress Head: Normocephalic, atraumatic EENT: PERRL, Lids normal, sclera normal, conjunctiva normal, nose normal , ears normal, throat without erythema or exudates Neck: Supple, no adenopathy, no trachea midline or C-spine tenderness Lung: breath sounds symmetric, no wheezing, rales or rhonchi Chest: symmetric movement, nontender Heart: regular rate and rhythm, normal S1, S2 no murmurs or rubs Abdomen: soft, moderate lower abdominal tenderness left greater than right, nondistended, normal bowel sounds Back: no vertebral tenderness, no CVAT Extremities: no deformities, moves all extremities symmetrically Skin: no rashes, no lesion, normal color and warmth Neuro: Awake, alert, oriented, normal speech, cranial nerves intact, moves all extremities symmetrically Psych: Pleasant, cooperative Medical Decision Making Medical Decision Making [facility] Narrative: 42-year-old male with a history of obstructive sleep apnea, Crohn's, anxiety, migraine, partial colectomy 2006 for Crohn's who presents emergency department for evaluation of 3 days of lower abdominal pain, bloating sensation, nausea and vomiting. Patient states this pain is similar to a flare-up of his Crohn's . In reviewing his ED visits the patient has been seen frequently with similar complaints and has had multiple negative CT scans of the abdomen pelvis with IV contrast. Patient's vital signs were normal. Exam did reveal lower abdominal tenderness left greater than right Following evaluation was ordered: CBC, CMP, lipase, ESR, CRP, urinalysis, urine drug screen Patient was treated with normal saline IV x1 L, Dilaudid 1 mg IV x2 and Phenergan 12.5 mg IV x1 13:47 The patient is feeling significantly better after the above treatment Patient's laboratory evaluation revealed normal WBC, non elevated ESR and CRP which is reassuring. Patient's urine drug screen was positive for opiates however he did receive Dilaudid IV prior to giving us a urine sample At this time, I suspect the patient may be having a mild flare-up of his Crohn's disease, I do not think it needs a another CT scan I think that he can be discharged home. Patient was advised to continue taking his medications as prescribed by his providers and to follow-up with his GI provider for re-evaluation Differential Diagnosis Differential Diagnoses: The differential diagnosis associated with the presentation includes Disposition includes but is not limited to Crohn's flare up, partial small-bowel obstruction, urinary tract infection, electrolyte abnormality, anemia, Admission/Observation Consideration of admission/observation: Escalation of care including admission/observation considered Lab Data [facility] Lab Attestation statement: I reviewed the patient's lab results. My interpretation of the patient's laboratory evaluation is as follows: CBC and CMP were normal except for an elevated bicarbonate elevated ALT. ESR, CRP and WBC were normal. Urinalysis was positive for opiates however the patient did receive Dilaudid prior to getting a urine sample pain 06/01/23 08:13 06/01/23 08:12 Labs: Lab Results 06/01/23 06/01/23 06/01/23 Range/Units 08:09 08:12 08:13 WBC 4.9 (4.8-10.8) X10*3/uL RBC 4.57 L (4.60-5.80) X10*6/uL Hgb 14.2 (14.0-18.0) g/dl Hct 41.0 L (42.0-52.0) % MCV 89.7 (80.0-98.0) fL MCH 31.1 (27.0-33.0) pg MCHC 34.6 (31.0-36.0) g/dl RDW 12.4 (11.0-16.0) % Plt Count 158 L (160-400) X10*3/uL MPV 10.6 (9.4-12.4) fL Immature Gran % (Auto) 0.2 (0.0-0.4) % Neut % (Auto) 62.0 (45-73) % Lymph % (Auto) 30.5 (20-40) % Real % (Auto) 5.7 (2-11) % Eos % (Auto) 1.2 (0-4) % Baso % (Auto) 0.4 (0-2) % Lymph # (Auto) 1.5 (1.2-4.9) X10*3/uL Real # (Auto) 0.3 (0.1-1.2) X10*3/uL Eos # (Auto) 0.1 (0.0-0.4) X10*3/uL Baso # (Auto) 0.0 (0.0-0.2) X10*3/uL Abs Immat Gran (auto) 0.01 (0.00-0.03) X10*3/uL Absolute Neuts (auto) 3.0 (2.0-8.3) x10*3/uL Absolute Nucleated RBC 0.000 (0.0-0.012) X10*3/uL Nucleated RBC % (auto) 0.0 (0.0-0.2) /100WBC ESR 9 (0-15) MM/HR PT 11.6 (11.1-13.3) SEC INR 1.0 (0.9-1.1) APTT 29.1 (26.0-36.4) SEC Sodium 139 (135-145) mmol/L Potassium 3.8 (3.3-5.1) mmol/L Chloride 106 (96-108) mmol/L Carbon Dioxide 30 H (22-29) mmol/L Anion Gap 7 L (12-20) BUN 7 L (9-16) mg/dL Creatinine 0.72 (0.5-1.4) mg/dL Estim Creat Clear Calc 113.8 Estimated GFR > 60 Random Glucose 98 (60-115) mg/dL Calcium 9.4 (8.4-10.2) mg/dL Total Bilirubin 0.9 (0.0-1.0) mg/dL AST 36 (5-37) U/L ALT 54 H (0-40) U/L Alkaline Phosphatase 70 (39-117) U/L C-Reactive Protein < 0.10 (< or = 0.50) mg/dL Total Protein 7.6 (6.5-8.0) g/dL Albumin 4.2 (3.5-5.0) g/dL Lipase 21 (8-78) U/L Urine Color Dark Yellow Urine Appearance Clear Urine pH 5.5 (5.0-9.0) Ur Specific [place] 1.020 (1.005-1.025) Urine Protein Negative (Neg-Trace) mg/dL Urine Glucose (UA) Negative (Negative) mg/dL Urine Ketones Trace (Negative) mg/dL Urine Blood Negative (Negative) Urine Nitrite Negative (Negative) Ur Leukocyte Esterase Trace H (Negative) Urine RBC 0-2 (0-2) /HPF Urine WBC 0-5 (0-5) /HPF Ur Squamous Epith Cells 0-2 (0-2) /HPF Urine Bacteria None Seen (None Seen) Hyaline Casts 0-2 (0-2) /LPF Urine Opiates Screen POSITIVE H (Not Detect) Urine Fentanyl Screen Not Detected (Not Detect) Ur Barbiturates Screen Not Detected (Not Detect) Ur Phencyclidine Scrn Not Detected (Not Detect) Ur Amphetamines Screen Not Detected (Not Detect) U Benzodiazepines Scrn Not Detected (Not Detect) Urine Cocaine Screen Not Detected (Not Detect) U Marijuana (THC) Screen Not Detected (Not Detect) Ethyl Alcohol < 10 mg/dL Chronic Conditions Patient?s care impacted by: Other (Crohn's disease) Medications Administered Discontinued Medications Generic Name Dose Route Start Last Admin Trade Name Freq PRN Reason Stop Dose Admin Hydromorphone HCl 1 mg 06/01/23 08:06 06/01/23 08:31 Hydromorphone Hcl 1 Mg/Ml Syringe IVPUSH 06/01/23 08:07 1 mg ONCE STA Administration Protocol Hydromorphone HCl 1 mg 06/01/23 09:52 06/01/23 10:02 Hydromorphone Hcl 1 Mg/Ml Syringe IVPUSH 06/01/23 09:53 1 mg ONCE STA Administration Protocol Sodium Chloride 1,000 mls @ 999 mls/hr 06/01/23 07:54 06/01/23 10:03 Ns IV 06/01/23 08:54 Infused .Q1H1M STA Infusion Promethazine HCl 12.5 mg/ 50.5 mls @ 202 mls/hr 06/01/23 08:06 06/01/23 09:46 Sodium Chloride IV 06/01/23 08:07 Infused ONCE ONE Infusion Discharge Plan Discharge Clinical Impression: Abdominal pain Qualifiers: Abdominal location: lower abdomen, unspecified Qualified Code(s): R10.30 - Lower abdominal pain, unspecified Patient Disposition: Home, Self-Care Instructions: Abdominal Pain (ED) Additional Instructions: Your inflammatory markers (white blood cell count, CRP and ESR) were all normal The rest of your blood work was normal as well. At this time, I do not have a clear cause for your pain but she may be having a mild flare-up of your Crohn's disease Continue taking medications as prescribed by your providers, if you continue to have pain then you should follow-up with your manager marketing for re-evaluation. Follow-up with your doctor in 2 days. Please return to the emergency department if your symptoms get worse or if you develop any symptoms that are concerning to you. Prescriptions: No Action tizanidine 4 mg tablet 6 mg PO BEDTIME PRN (Reason: Muscle Spasm) 30 Days Qty: 135 3RF propranolol 10 mg tablet 10 mg PO BID 90 Days Qty: 180 1RF magnesium oxide 400 mg (241.3 mg magnesium) tablet 400 mg PO BEDTIME 30 Days Qty: 30 6RF Rx Instructions: may hold for loose stools topiramate 25 mg tablet 25 - 50 mg PO DAILY 30 Days Qty: 60 6RF hydrocortisone 1 % cream 1 appl topical BID PRN (Reason: Itching) tramadol 50 mg tablet 50 mg PO BID PRN (Reason: moderate pain (scale score 5-6)) Qty: 14 0RF promethazine 25 mg tablet 25 mg PO Q6H PRN (Reason: nausea and vomiting) Qty: 10 0RF metronidazole 500 mg tablet 500 mg PO BID 7 Days Qty: 14 0RF oxycodone 5 mg tablet 5 mg PO Q8H PRN (Reason: pain) Qty: 5 0RF Rx Instructions: Partial Fill upon patient request. docusate sodium [Colace] 100 mg capsule 100 mg PO BID PRN (Reason: Constipation) Qty: 14 0RF polyethylene glycol 3350 [Miralax] 17 gram/dose powder 17 g PO DAILY Qty: 119 0RF ondansetron HCl 4 mg tablet 4 mg PO Q8H Qty: 14 0RF clonazepam 1 mg tablet 1 tab PO BID PRN (Reason: Anxiety) omeprazole 20 mg capsule,delayed release(DR/EC) 2 cap PO DAILY@0630 zolpidem 10 mg tablet 1 tab PO BEDTIME loratadine 10 mg tablet 1 tab PO DAILY PRN (Reason: Allergy Symptoms) Humira(CF) Pen 40 mg/0.4 mL pen injector kit 40 mg subcut TH@0900 multivitamin with folic acid [Daily-Davis (with folic acid)] 400 mcg tablet 1 tab PO DAILY hydrocortisone 100 mg/60 mL enema 100 mg LA DAILY 14 Days Qty: 840 0RF oxycodone 5 mg capsule 5 mg PO BID PRN (Reason: severe pain) Qty: 6 0RF Rx Instructions: Partial Fill upon patient request. prednisone 20 mg tablet 60 mg PO DAILY 5 Days Qty: 15 0RF sumatriptan succinate 100 mg tablet 50 - 100 mg PO .COMPLEX PRN (Reason: migraine headache) 30 Days Qty: 12 6RF Rx Instructions: 50 - 100 mg orally at onset of headache, may repeat in 2 hrs PRN; max 2 tabs per day or 4 tabs/week (may take with Ibuprofen)
[2023-06-01 08:21] LABS: MANUAL DIFF FLAG NO
[2023-06-01 08:28] LABS: Prothrombin Time 11.6 SEC (11.1-13.3)
[2023-06-01 08:30] LABS: Amphetamine Screen Urine Not Detected (Not Detect); Barbiturates, Urine Not Detected (Not Detect); Benzodiazepines Screen Urine Not Detected (Not Detect); Cannabinoid Screen Urine Not Detected (Not Detect); Cocaine Screen Urine Not Detected (Not Detect); Fentanyl, urine Not Detected (Not Detect); Opiate Screen Urine POSITIVE (Not Detect); Phencyclidine Screen Urine Not Detected (Not Detect)
[2023-06-01 08:31] LABS: Partial Thromboplastin Time 29.1 SEC (26.0-36.4)
[2023-06-01] MEDS: HYDROmorphone HCl 1 MG/ML SYRINGE IVPUSH ×2 (08:31→10:02)
[2023-06-01] MEDS: 0.9 % Sodium Chloride 1,000 ML 999 ML IV (08:31)
[2023-06-01 08:32] LABS: Basophils Percent Auto 0.4 % (0-2); Eosinophils Absolute Auto 0.1 X10*3/uL (0.0-0.4); Eosinophils Percent Auto 1.2 % (0-4); Hemoglobin 14.2 g/dl (14.0-18.0); Imm Gran Abs Auto 0.01 X10*3/uL (0.00-0.03); Imm Gran Pct Auto 0.2 % (0.0-0.4); Lymphocytes Absolute Auto 1.5 X10*3/uL (1.2-4.9); Lymphocytes Percent Auto 30.5 % (20-40); Mean Corpuscular HGB Conc 34.6 g/dl (31.0-36.0); Mean Corpuscular Hemoglobin 31.1 pg (27.0-33.0); Mean Corpuscular Volume 89.7 fL (80.0-98.0); Mean Platelet Volume 10.6 fL (9.4-12.4); Monocytes Absolute Auto 0.3 X10*3/uL (0.1-1.2); Monocytes Percent Auto 5.7 % (2-11); Platelet Count 158 X10*3/uL (160-400); Red Blood Count 4.57 X10*6/uL (4.60-5.80); Red Cell Distribution Width 12.4 % (11.0-16.0); White Blood Count 4.9 X10*3/uL (4.8-10.8)
[2023-06-01 08:32] LABS: Appearance Urine Clear; Color Urine Dark Yellow; Glucose Urine UA Negative (Negative); Leukocyte Esterase Urine Trace (Negative); Nitrite Urine Negative (Negative); PH 5.5 (5.0-9.0); UMIC TRIGGER UACC YES; Urine Blood Negative (Negative); Urine Ketones Trace mg/dL (Negative); Urine Protein Negative (Neg-Trace)
[2023-06-01 08:37] LABS: Bacteria Urine None Seen (None Seen); Hyaline Casts Urine 0-2 /LPF (0-2); RBC Urine 0-2 /HPF (0-2); Squamous Epithelial Cell Urine 0-2 /HPF (0-2); WBC Urine 0-5 /HPF (0-5)
[2023-06-01 08:40] LABS: Alanine Aminotransferase 54 U/L (0-40); Albumin Level 4.2 g/dL (3.5-5.0); Alkaline Phosphatase 70 U/L (39-117); Anion Gap 7 (12-20); Aspartate Amino Transferase 36 U/L (5-37); Bilirubin Total 0.9 mg/dL (0.0-1.0); Blood Urea Nitrogen 7 mg/dL (9-16); C Reactive Protein < 0.10 mg/dL (< or = 0.50); Calcium 9.4 mg/dL (8.4-10.2); Carbon Dioxide 30 mmol/L (22-29); Chloride 106 mmol/L (96-108); Creatinine Clr Calc Pharmacy 113.8; Estimated Glomerular Filt Rate > 60; Ethanol < 10 mg/dL; Glucose Random 98 mg/dL (60-115); Lipase 21 U/L (8-78); Potassium 3.8 mmol/L (3.3-5.1); Sodium 139 mmol/L (135-145); Total Protein 7.6 g/dL (6.5-8.0)
[2023-06-01 08:55] VITALS: BP 103/65; PULSE 84; RESP 16; O2SAT 98
--- NOTE | 2023-06-01 09:15 | PC.NURSE ---
Pt alert/oriented. States rlq abd pain x 3 days with n/v/d, unable to tolerate PO meds for Chrons. Abd + BS x4 quads, abd distended and tender. IV established and medicated as charted. Skin pwd. VSS.
[2023-06-01 09:16] LABS: Erythrocyte Sedimentation Rate 9 MM/HR (0-15)
[2023-06-01 10:04] VITALS: PULSE 60; RESP 20; O2SAT 99
[2023-06-01 12:56] VITALS: BP 117/79; PULSE 63; RESP 58; TEMP 36.8; O2SAT 98
== END 2023-06-01 14:16 | disposition home or self-care (01) ==
PROVIDERS: Emergency Provider Emergency Medicine Emergency Medical Services; PCP Internal Medicine
DX: R10.30 Lower abdominal pain, unspecified (principal); K50.90 Crohn's disease, unspecified, without complications; R11.2 Nausea with vomiting, unspecified; Z79.899 Other long term (current) drug therapy
CPT/HCPCS: 36415; 80053; 80307; 81001; 83690; 85025; 85610; 85652; 85730; 86140; 96361; 96374; 96375; 96376; 99284; J1170; J2550

== ENCOUNTER 2023-08-05 12:38 | Emergency (ER) | payer OTHER, SELFPAY ==
[2023-08-05 12:53] VITALS: BP 109/65; PULSE 90; O2SAT 99
[2023-08-05 13:05] VITALS: BP 101/69; PULSE 58; RESP 20; O2SAT 99; BMI 24.5
--- NOTE | 2023-08-05 13:45 | PC.NURSE ---
PT IS A/O X 4 NO SOB/ZITA NOTED SPEAKS IN FULL SENTENCES.ABD TENDER AND DISTENDED. PT STATES THAT HE IS UNABLE TO KEEP DOWN X 2 DAYS.
[2023-08-05 13:58] LABS: MANUAL DIFF FLAG NO
[2023-08-05 14:00] LABS: Appearance Urine Clear; Color Urine Yellow; Glucose Urine UA Negative (Negative); Leukocyte Esterase Urine Negative (Negative); Nitrite Urine Negative (Negative); Specific Gravity - Urine 1.025 (1.005-1.025); Urine Blood Negative (Negative); Urine Ketones Negative (Negative); Urine Protein Negative (Neg-Trace)
[2023-08-05 14:03] LABS: Basophils Percent Auto 0.6 % (0-2); Eosinophils Absolute Auto 0.1 X10*3/uL (0.0-0.4); Eosinophils Percent Auto 1.1 % (0-4); Hematocrit 44.1 % (42.0-52.0); Hemoglobin 14.7 g/dl (14.0-18.0); Imm Gran Abs Auto 0.01 X10*3/uL (0.00-0.03); Imm Gran Pct Auto 0.2 % (0.0-0.4); Lymphocytes Absolute Auto 1.3 X10*3/uL (1.2-4.9); Lymphocytes Percent Auto 24.9 % (20-40); Mean Corpuscular HGB Conc 33.3 g/dl (31.0-36.0); Mean Corpuscular Hemoglobin 30.8 pg (27.0-33.0); Mean Corpuscular Volume 92.5 fL (80.0-98.0); Mean Platelet Volume 10.6 fL (9.4-12.4); Monocytes Absolute Auto 0.3 X10*3/uL (0.1-1.2); Monocytes Percent Auto 5.7 % (2-11); Neutrophils Absolute Auto 3.5 x10*3/uL (2.0-8.3); Neutrophils Percent Auto 67.5 % (45-73); Platelet Count 178 X10*3/uL (160-400); Red Blood Count 4.77 X10*6/uL (4.60-5.80); Red Cell Distribution Width 12.6 % (11.0-16.0); White Blood Count 5.2 X10*3/uL (4.8-10.8)
[2023-08-05] MEDS: 0.9 % Sodium Chloride 1,000 ML 999 ML IV (14:03)
[2023-08-05] MEDS: HYDROmorphone HCl 1 MG/ML SYRINGE IVPUSH ×2 (14:03→15:26)
--- NOTE | 2023-08-05 14:12 | ED_ITS ---
HPI - Abdominal Pain General Chief Complaint: Abdominal Pain Stated Complaint: ABD PAIN,DISTENDED/RIGID,?[place] PER EMS Time Seen by Provider: 08/05/23 13:27 Source: patient and old records reviewed Mode of arrival: EMS Limitations: no limitations History of Present Illness HPI narrative: 42 yo male with PMH of Crohns, migraines, anxiety, PSBO here with c/o abdominal pain n/v/d, brb streaking in stool has been seen here a number of times with abdominal pain and similar complaints with negative CT scans in the past. He sees GI MD elicited complaint: abdominal pain Pertinent past history: other (crohns) Onset (ago): day(s) (1) Pain Consistency: constant Location: diffuse Severity: moderate Quality: stabbing Radiation: none Migration to: no migration Exacerbating factors: eating and movement Relieving factors: nothing Context: history of similar episodes Associated symptoms: nausea, vomiting, diarrhea and other (streaks of blood in stool) Related Data Home Medications Medication Instructions Recorded Confirmed adalimumab 40 mg/0.4 mL 40 mg subcut TH@0900 08/19/21 06/11/22 subcutaneous pen kit (Humira(CF) Pen) clonazepam 1 mg tablet 1 tab PO BID PRN Anxiety 08/19/21 06/11/22 loratadine 10 mg tablet 1 tab PO DAILY PRN Allergy Symptoms 08/19/21 06/11/22 omeprazole 20 mg capsule,delayed 2 cap PO DAILY@0630 08/19/21 06/11/22 release zolpidem 10 mg tablet 1 tab PO BEDTIME 08/19/21 06/11/22 hydrocortisone 1 % topical cream 1 appl topical BID PRN Itching 09/18/21 06/11/22 multivitamin with folic acid 400 1 tab PO DAILY 06/11/22 06/11/22 mcg tablet (Daily-Davis (with folic acid)) Previous Rx's Medication Instructions Recorded tizanidine 4 mg tablet 6 mg (1.5 x 4 mg) PO BEDTIME PRN 03/25/22 Muscle Spasm 30 days #135 tabs propranolol 10 mg tablet 10 mg PO BID 90 days #180 tabs 03/26/22 tramadol 50 mg tablet 50 mg PO BID PRN moderate pain 04/17/22 (scale score 5-6) #14 tabs sumatriptan succinate 100 mg tablet 50 - 100 mg (0.5 - 1 x 100 mg) PO 06/14/22 .COMPLEX PRN migraine headache 30 days #12 tabs magnesium oxide 400 mg (241.3 mg 400 mg PO BEDTIME 30 days #30 tabs 07/03/22 magnesium) tablet metronidazole 500 mg tablet 500 mg PO BID 7 days #14 tabs 07/14/22 oxycodone 5 mg tablet 5 mg PO Q8H PRN pain #5 tabs 07/14/22 promethazine 25 mg tablet 25 mg PO Q6H PRN nausea and 07/14/22 vomiting #10 tabs topiramate 25 mg tablet 25 - 50 mg (1 - 2 x 25 mg) PO 09/14/22 DAILY 30 days #60 tabs docusate sodium 100 mg capsule 100 mg PO BID PRN Constipation #14 09/28/22 (Colace) caps ondansetron HCl 4 mg tablet 4 mg PO Q8H #14 tabs 09/28/22 polyethylene glycol 3350 17 17 g PO DAILY #119 grams 09/28/22 gram/dose oral powder (Miralax) oxycodone 5 mg capsule 5 mg PO BID PRN severe pain #6 caps 11/02/22 prednisone 20 mg tablet 60 mg (3 x 20 mg) PO DAILY 5 days 01/31/23 #15 tabs hydrocortisone 100 mg/60 mL enema 100 mg (60 mL) [place] DAILY 2 weeks 04/06/23 #840 mL Allergies Allergy/AdvReac Type Severity Reaction Status Date / Time ondansetron [Ondansetron] Allergy Mild HIVES Verified 08/05/23 13:08 Sulfa (Sulfonamide Allergy Mild UNKNOWN Verified 08/05/23 13:08 Antibiotics) ketorolac Allergy Unknown Unknown Verified 08/05/23 13:08 meperidine [Demerol] Allergy Unknown Unknown Verified 08/05/23 13:08 metoclopramide [Reglan] Allergy Unknown Unknown Verified 08/05/23 13:08 morphine [Morphine] Allergy Unknown RASH Verified 08/05/23 13:08 haloperidol [From Haldol] Allergy Anaphylaxis Verified 08/05/23 13:08 ketamine Allergy Unknown Verified 08/05/23 13:08 From REGLAN Allergy Mild PT UNSURE Uncoded 08/05/23 13:08 BUT STATES HE IS ALLERGIC Compro Allergy Unknown Unknown Uncoded 08/05/23 13:08 From COMPAZINE Allergy Unknown ITCHING Uncoded 08/05/23 13:08 From Demerol Allergy Unknown ITCHY HIVES Uncoded 08/05/23 13:08 From Toradol Allergy Unknown UNK Uncoded 08/05/23 13:08 Review of Systems Review of Systems Constitutional : No Weight loss, No Fever, No Chills ENT/Mouth : No sore throat, No Rhinorrhea Eyes: No Swelling, No Redness Cardiovascular : No Chest Pain, No SOB, NoEdema Respiratory : No Cough, No Sputum, No Wheezing Gastrointestinal : Positive Nausea, Positive Vomiting, positive Diarrhea, positive abdominal Pain, pos Hematochezia, No Melena Genitourinary : No Dysuria, No Urinary Frequency, No Hematuria, No Urgency Musculoskeletal : No joint pain, No Myalgias, No Joint Swelling Skin : No Skin Lesions, No rash Neuro : No Weakness, No Numbness, No Dizziness, No Headache Psych : No Anxiety/Panic, No Depression Heme/Lymph: No Bruising, No Lymphadenopathy Endocrine : No Polyuria, No Polydipsia All other systems reviewed and are negative. [facility] Past Medical History Attestation statement: The following information was validated with the patient. Source: old records reviewed Medical History Cervicalgia Migraine Anxiety Crohn's disease IBD (inflammatory bowel disease) Partial small bowel obstruction Surgical History History of colostomy reversal S/P colostomy History of surgery on arm Hx of colonoscopy History of esophagogastroduodenoscopy (EGD) Family History Family History Mother HTN (hypertension) Social History Social History Household Members: Spouse Housing: House Do you presently have visiting nurse or other home services: No Alcohol intake: never Patient Tobacco Use Status: Never used Tobacco Smoked in Last 30 Days: No Use of substances other than those prescribed or required for medical reasons: No Advance Directives: No service: No Current occupational status: disabled Physical Exam ED Vital Signs: Vital Signs - 24 hr 08/05/23 13:05 Pulse Rate 58 Respiratory Rate 20 Blood Pressure 101/69 Pulse Oximetry 99 Oxygen Delivery Method Room Air BMI result Body Mass Index 24.5 Appearance: Alert. Oriented X3. Mil acute distress. playing on phones at times Eyes: Pupils equal, round and reactive to light. ENT: Pharynx normal. Neck: Normal inspection. Neck supple. CVS: Normal heart rate and rhythm. Pulses normal. Respiratory: No respiratory distress. Breath sounds normal. Abdomen: Soft and moderate diffuse ttp no rebound Skin: Skin warm and dry. Normal skin color. Normal skin turgor. Extremities: No lower extremity edema. No calf ttp Neuro: Oriented X 3. No motor deficit. No sensory deficit. Course Course Course Narrative: pain relief with IV dilaudid H/H stable Medical Decision Making Medical Decision Making [facility] Narrative: 42 yo male with PMH of Crohns, migraines, anxiety, PSBO here with c/o n/v abdominal pain some streaks of blood in stool - + stool and flatus doubt PSBO he does not want CT scan given his hx in the past at this time will obtain basic labs inflammatory markers and IV pain medications and fluids. He has GI appointment here and has medications to treat himself at home. Differential Diagnosis Differential Diagnoses: The differential diagnosis associated with the presentation includes abdominal pain, IBD, crohns flare has flatus and passing stool doubt SBO Admission/Observation Consideration of admission/observation: Escalation of care including admission/observation considered pain improved does not want another CT scan stable for DC Lab Data [facility] Lab Attestation statement: I reviewed the patient's lab results. 08/05/23 13:50 08/05/23 13:50 Labs: Lab Results 08/05/23 08/05/23 08/05/23 Range/Units 13:50 13:50 13:50 WBC 5.2 (4.8-10.8) X10*3/uL RBC 4.77 (4.60-5.80) X10*6/uL Hgb 14.7 (14.0-18.0) g/dl Hct 44.1 (42.0-52.0) % MCV 92.5 (80.0-98.0) fL MCH 30.8 (27.0-33.0) pg MCHC 33.3 (31.0-36.0) g/dl RDW 12.6 (11.0-16.0) % Plt Count 178 (160-400) X10*3/uL MPV 10.6 (9.4-12.4) fL Immature Gran % (Auto) 0.2 (0.0-0.4) % Neut % (Auto) 67.5 (45-73) % Lymph % (Auto) 24.9 (20-40) % [place] % (Auto) 5.7 (2-11) % Eos % (Auto) 1.1 (0-4) % Baso % (Auto) 0.6 (0-2) % Lymph # (Auto) 1.3 (1.2-4.9) X10*3/uL [place] # (Auto) 0.3 (0.1-1.2) X10*3/uL Eos # (Auto) 0.1 (0.0-0.4) X10*3/uL Baso # (Auto) 0.0 (0.0-0.2) X10*3/uL Abs Immat Gran (auto) 0.01 (0.00-0.03) X10*3/uL Absolute Neuts (auto) 3.5 (2.0-8.3) x10*3/uL Absolute Nucleated RBC 0.000 (0.0-0.012) X10*3/uL Nucleated RBC % (auto) 0.0 (0.0-0.2) /100WBC Sodium 141 (135-145) mmol/L Potassium 3.6 (3.3-5.1) mmol/L Chloride 103 (96-108) mmol/L Carbon Dioxide 30 H (22-29) mmol/L Anion Gap 12 (12-20) BUN 12 (9-16) mg/dL Creatinine 0.81 (0.5-1.4) mg/dL Estim Creat Clear Calc 101.2 Estimated GFR > 60 Random Glucose 89 (60-115) mg/dL Calcium 9.8 (8.4-10.2) mg/dL Magnesium 1.9 1.8 (1.6-2.6) mg/dL Total Bilirubin 0.8 (0.0-1.0) mg/dL AST 26 (5-37) U/L ALT 49 H (0-40) U/L Alkaline Phosphatase 75 (39-117) U/L C-Reactive Protein < 0.10 (< or = 0.50) mg/dL Total Protein 8.3 H (6.5-8.0) g/dL Albumin 4.5 (3.5-5.0) g/dL Lipase 20 19 (8-78) U/L Urine Color Urine Appearance Urine pH (5.0-9.0) Ur Specific [place] (1.005-1.025) Urine Protein (Neg-Trace) mg/dL Urine Glucose (UA) (Negative) mg/dL Urine Ketones (Negative) mg/dL Urine Blood (Negative) Urine Nitrite (Negative) Ur Leukocyte Esterase (Negative) 08/05/23 Range/Units 13:53 WBC (4.8-10.8) X10*3/uL RBC (4.60-5.80) X10*6/uL Hgb (14.0-18.0) g/dl Hct (42.0-52.0) % MCV (80.0-98.0) fL MCH (27.0-33.0) pg MCHC (31.0-36.0) g/dl RDW (11.0-16.0) % Plt Count (160-400) X10*3/uL MPV (9.4-12.4) fL Immature Gran % (Auto) (0.0-0.4) % Neut % (Auto) (45-73) % Lymph % (Auto) (20-40) % [place] % (Auto) (2-11) % Eos % (Auto) (0-4) % Baso % (Auto) (0-2) % Lymph # (Auto) (1.2-4.9) X10*3/uL [place] # (Auto) (0.1-1.2) X10*3/uL Eos # (Auto) (0.0-0.4) X10*3/uL Baso # (Auto) (0.0-0.2) X10*3/uL Abs Immat Gran (auto) (0.00-0.03) X10*3/uL Absolute Neuts (auto) (2.0-8.3) x10*3/uL Absolute Nucleated RBC (0.0-0.012) X10*3/uL Nucleated RBC % (auto) (0.0-0.2) /100WBC Sodium (135-145) mmol/L Potassium (3.3-5.1) mmol/L Chloride (96-108) mmol/L Carbon Dioxide (22-29) mmol/L Anion Gap (12-20) BUN (9-16) mg/dL Creatinine (0.5-1.4) mg/dL Estim Creat Clear Calc Estimated GFR Random Glucose (60-115) mg/dL Calcium (8.4-10.2) mg/dL Magnesium (1.6-2.6) mg/dL Total Bilirubin (0.0-1.0) mg/dL AST (5-37) U/L ALT (0-40) U/L Alkaline Phosphatase (39-117) U/L C-Reactive Protein (< or = 0.50) mg/dL Total Protein (6.5-8.0) g/dL Albumin (3.5-5.0) g/dL Lipase (8-78) U/L Urine Color Yellow Urine Appearance Clear Urine pH 6.0 (5.0-9.0) Ur Specific [place] 1.025 (1.005-1.025) Urine Protein Negative (Neg-Trace) mg/dL Urine Glucose (UA) Negative (Negative) mg/dL Urine Ketones Negative (Negative) mg/dL Urine Blood Negative (Negative) Urine Nitrite Negative (Negative) Ur Leukocyte Esterase Negative (Negative) External Record Review External record reviewed: Inpatient record and Office record Tests considered The following testing was considered but not selected: CT scan but has had multiple negative, he declines and CBC/ESR/CRP normal, VS stable Prescription Management I considered prescription management with: Other Medications Administered Generic Name Dose Route Start Last Admin Trade Name Freq PRN Reason Stop Dose Admin Sodium Chloride 1,000 mls @ 999 mls/hr 08/05/23 13:30 08/05/23 14:03 Ns IV 08/05/23 14:30 999 mls/hr .[id number] DULCE MARIA Administration Discontinued Medications Generic Name Dose Route Start Last Admin Trade Name Freq PRN Reason Stop Dose Admin Hydromorphone HCl 1 mg 08/05/23 13:28 08/05/23 14:03 Hydromorphone Hcl 1 Mg/Ml Syringe IVPUSH 08/05/23 13:29 1 mg ONCE ONE Administration Protocol Critical Care Time Critical Care Time Critical Care Time: Yes Total Critical Care Time: 45 Attestation: repeat IV dilaudid x 2 with improvement in pain, review of records. I attest to this time spent taking care of the patient Discharge Plan Discharge Clinical Impression: IBD (inflammatory bowel disease) Abdominal pain Qualifiers: Abdominal location: generalized Qualified Code(s): R10.84 - Generalized abdominal pain Patient Disposition: Home, Self-Care Instructions: Abdominal Pain (ED), Crohn Disease (ED) Additional Instructions: follow up with your GI doctor as planned. return for fevers, worsening bleeding, dizziness, fainting, inability to eat or drink/take medications or any other concerns. Prescriptions: No Action tizanidine 4 mg tablet 6 mg PO BEDTIME PRN (Reason: Muscle Spasm) 30 Days Qty: 135 3RF propranolol 10 mg tablet 10 mg PO BID 90 Days Qty: 180 1RF magnesium oxide 400 mg (241.3 mg magnesium) tablet 400 mg PO BEDTIME 30 Days Qty: 30 6RF Rx Instructions: may hold for loose stools topiramate 25 mg tablet 25 - 50 mg PO DAILY 30 Days Qty: 60 6RF hydrocortisone 1 % cream 1 appl topical BID PRN (Reason: Itching) tramadol 50 mg tablet 50 mg PO BID PRN (Reason: moderate pain (scale score 5-6)) Qty: 14 0RF promethazine 25 mg tablet 25 mg PO Q6H PRN (Reason: nausea and vomiting) Qty: 10 0RF metronidazole 500 mg tablet 500 mg PO BID 7 Days Qty: 14 0RF oxycodone 5 mg tablet 5 mg PO Q8H PRN (Reason: pain) Qty: 5 0RF Rx Instructions: Partial Fill upon patient request. docusate sodium [Colace] 100 mg capsule 100 mg PO BID PRN (Reason: Constipation) Qty: 14 0RF polyethylene glycol 3350 [Miralax] 17 gram/dose powder 17 g PO DAILY Qty: 119 0RF ondansetron HCl 4 mg tablet 4 mg PO Q8H Qty: 14 0RF clonazepam 1 mg tablet 1 tab PO BID PRN (Reason: Anxiety) omeprazole 20 mg capsule,delayed release(DR/EC) 2 cap PO DAILY@0630 zolpidem 10 mg tablet 1 tab PO BEDTIME loratadine 10 mg tablet 1 tab PO DAILY PRN (Reason: Allergy Symptoms) Humira(CF) Pen 40 mg/0.4 mL pen injector kit 40 mg subcut TH@0900 multivitamin with folic acid [Daily-Davis (with folic acid)] 400 mcg tablet 1 tab PO DAILY hydrocortisone 100 mg/60 mL enema 100 mg [place] DAILY 14 Days Qty: 840 0RF oxycodone 5 mg capsule 5 mg PO BID PRN (Reason: severe pain) Qty: 6 0RF Rx Instructions: Partial Fill upon patient request. prednisone 20 mg tablet 60 mg PO DAILY 5 Days Qty: 15 0RF sumatriptan succinate 100 mg tablet 50 - 100 mg PO .COMPLEX PRN (Reason: migraine headache) 30 Days Qty: 12 6RF Rx Instructions: 50 - 100 mg orally at onset of headache, may repeat in 2 hrs PRN; max 2 tabs per day or 4 tabs/week (may take with Ibuprofen)
[2023-08-05 14:15] LABS: Lipase 19 U/L (8-78); Magnesium 1.8 mg/dL (1.6-2.6)
[2023-08-05 14:16] LABS: Alanine Aminotransferase 49 U/L (0-40); Albumin Level 4.5 g/dL (3.5-5.0); Alkaline Phosphatase 75 U/L (39-117); Anion Gap 12 (12-20); Aspartate Amino Transferase 26 U/L (5-37); Bilirubin Total 0.8 mg/dL (0.0-1.0); Blood Urea Nitrogen 12 mg/dL (9-16); C Reactive Protein < 0.10 mg/dL (< or = 0.50); Calcium 9.8 mg/dL (8.4-10.2); Carbon Dioxide 30 mmol/L (22-29); Chloride 103 mmol/L (96-108); Creatinine Clr Calc Pharmacy 101.2; Estimated Glomerular Filt Rate > 60; Glucose Random 89 mg/dL (60-115); Lipase 20 U/L (8-78); Magnesium 1.9 mg/dL (1.6-2.6); Potassium 3.6 mmol/L (3.3-5.1); Sodium 141 mmol/L (135-145); Total Protein 8.3 g/dL (6.5-8.0)
[2023-08-05 14:26] VITALS: BP 103/71; PULSE 64; RESP 19; TEMP 37.1; O2SAT 98
[2023-08-05 14:29] LABS: Amphetamine Screen Urine Not Detected (Not Detect); Barbiturates, Urine Not Detected (Not Detect); Benzodiazepines Screen Urine Not Detected (Not Detect); Cannabinoid Screen Urine Not Detected (Not Detect); Cocaine Screen Urine Not Detected (Not Detect); Fentanyl, urine Not Detected (Not Detect); Opiate Screen Urine POSITIVE (Not Detect); Phencyclidine Screen Urine Not Detected (Not Detect)
[2023-08-05 14:43] LABS: Erythrocyte Sedimentation Rate 13 MM/HR (0-15)
[2023-08-05 15:38] VITALS: BP 104/75; PULSE 63; RESP 16; TEMP 36.2; O2SAT 97
== END 2023-08-05 16:02 | disposition home or self-care (01) ==
PROVIDERS: Physician Assistant; Emergency Provider Emergency Medicine; PCP Student in an Organized Health Care Education/Training Program
DX: K58.8 Other irritable bowel syndrome (principal); R10.84 Generalized abdominal pain; R11.2 Nausea with vomiting, unspecified; K92.1 Melena; Z79.899 Other long term (current) drug therapy
CPT/HCPCS: 36415; 80053; 80307; 81003; 83690; 83735; 85025; 85652; 86140; 96361; 96374; 96376; 99284; J1170

== ENCOUNTER 2023-09-05 11:24 | Emergency (ER) | payer OTHER, SELFPAY ==
--- NOTE | ~2023-09-05 | CT_ITS ---
EXAMINATION: CT ABDOMEN AND PELVIS WITH CONTRAST CLINICAL INFORMATION: Abdominal pain, vomiting, history of Crohn's, rule out small bowel obstruction COMPARISON: CT abdomen pelvis 04/06/2023. TECHNIQUE: Multidetector volumetric images were obtained from the superior aspect of the liver through the pubic symphysis following administration 85 mL of Omnipaque 350 intravenous contrast. Sagittal and coronal reformatted images were obtained on the technologist's workstation. Oral contrast: No This CT examination was performed using dose optimization techniques as appropriate, variously including the following: *Automated exposure control *Adjustment of mA and/or kV according to patient size (this includes techniques or standardized protocols for targeted exams where dose is matched to indication/reason for exam; i.e. extremities or head) *Use of iterative reconstruction technique DLP: 468 mGy-cm FINDINGS: LUNG BASES: Unremarkable. LIVER AND BILIARY TREE: Unremarkable. GALLBLADDER: Status post cholecystectomy. PANCREAS: Mild fatty infiltration of the pancreatic head.. SPLEEN: Splenomegaly with spleen spanning 13 cm in craniocaudal dimension. ADRENAL GLANDS: Unremarkable. KIDNEYS AND URETERS: Punctate, 3 mm inferior pole left renal nonobstructing calculus. Kidneys otherwise unremarkable. 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 Fecalization of distal small bowel contents suggesting slow transit. Small bowel anastomosis in the right anterior pelvis without bowel dilation. No bowel wall thickening or perienteric fluid/fat stranding identified. VASCULAR: Unremarkable LYMPH NODES: No lymphadenopathy. PERITONEUM: No ascites. Scattered surgical clips in the upper peritoneum. BLADDER: Unremarkable. PELVIC VISCERA: Unremarkable. ABDOMINAL AND PELVIC WALL: Unremarkable. OSSEOUS STRUCTURES: Unremarkable. CT/CT abdomen pelvis w IV con IMPRESSION: 1. No acute abnormality of the abdomen or pelvis. 2. Redemonstrated postoperative appearance from total colectomy and ileoanal anastomosis without evidence of active small bowel inflammation or obstruction as clinically queried. Fecalization of distal small bowel contents suggesting slow transit. 3. Splenomegaly. 4. Punctate, 3 mm nonobstructing left renal calculus.
--- NOTE | 2023-09-05 11:26 | ED_ITS ---
HPI - Abdominal Pain General Chief Complaint: Abdominal Pain Stated Complaint: Chrons flare Time Seen by Provider: 09/05/23 12:19 Source: patient and family Mode of arrival: ambulatory Limitations: no limitations History of Present Illness HPI narrative: 42-year-old male who has a history of Crohn's disease with a J-pouch who is currently receiving Humira presents to the ER with complaints of 2 days of right-sided abdominal pain. Yesterday he had approximately 10 episodes of bloody diarrhea. Patient reports no blood in his stools today. This morning he had 2 episodes of vomiting after trying to take his home oxycodone. He is concerned that he may have an obstruction. He had been seen by Dr. Espinosa from [facility] but is switching to a different health science writer within the same practice. He has an appointment in 2 weeks to be seen by them. Related Data Home Medications Medication Instructions Recorded Confirmed adalimumab 40 mg/0.4 mL 40 mg subcut TH@0900 08/19/21 06/11/22 subcutaneous pen kit (Humira(CF) Pen) clonazepam 1 mg tablet 1 tab PO BID PRN Anxiety 08/19/21 06/11/22 loratadine 10 mg tablet 1 tab PO DAILY PRN Allergy Symptoms 08/19/21 06/11/22 omeprazole 20 mg capsule,delayed 2 cap PO DAILY@0630 08/19/21 06/11/22 release zolpidem 10 mg tablet 1 tab PO BEDTIME 08/19/21 06/11/22 hydrocortisone 1 % topical cream 1 appl topical BID PRN Itching 09/18/21 06/11/22 multivitamin with folic acid 400 1 tab PO DAILY 06/11/22 06/11/22 mcg tablet (Daily-Davis (with folic acid)) Previous Rx's Medication Instructions Recorded tizanidine 4 mg tablet 6 mg (1.5 x 4 mg) PO BEDTIME PRN 03/25/22 Muscle Spasm 30 days #135 tabs propranolol 10 mg tablet 10 mg PO BID 90 days #180 tabs 03/26/22 tramadol 50 mg tablet 50 mg PO BID PRN moderate pain 04/17/22 (scale score 5-6) #14 tabs sumatriptan succinate 100 mg tablet 50 - 100 mg (0.5 - 1 x 100 mg) PO 06/14/22 .COMPLEX PRN migraine headache 30 days #12 tabs magnesium oxide 400 mg (241.3 mg 400 mg PO BEDTIME 30 days #30 tabs 07/03/22 magnesium) tablet metronidazole 500 mg tablet 500 mg PO BID 7 days #14 tabs 07/14/22 oxycodone 5 mg tablet 5 mg PO Q8H PRN pain #5 tabs 07/14/22 promethazine 25 mg tablet 25 mg PO Q6H PRN nausea and 07/14/22 vomiting #10 tabs topiramate 25 mg tablet 25 - 50 mg (1 - 2 x 25 mg) PO 09/14/22 DAILY 30 days #60 tabs docusate sodium 100 mg capsule 100 mg PO BID PRN Constipation #14 09/28/22 (Colace) caps ondansetron HCl 4 mg tablet 4 mg PO Q8H #14 tabs 09/28/22 polyethylene glycol 3350 17 17 g PO DAILY #119 grams 09/28/22 gram/dose oral powder (Miralax) oxycodone 5 mg capsule 5 mg PO BID PRN severe pain #6 caps 11/02/22 prednisone 20 mg tablet 60 mg (3 x 20 mg) PO DAILY 5 days 01/31/23 #15 tabs hydrocortisone 100 mg/60 mL enema 100 mg (60 mL) NE DAILY 2 weeks 04/06/23 #840 mL dicyclomine 10 mg capsule 10 mg PO QID PRN abdominal pain 09/05/23 #15 caps Allergies Allergy/AdvReac Type Severity Reaction Status Date / Time ondansetron [Ondansetron] Allergy Mild HIVES Verified 08/05/23 13:08 Sulfa (Sulfonamide Allergy Mild UNKNOWN Verified 08/05/23 13:08 Antibiotics) ketorolac Allergy Unknown Unknown Verified 08/05/23 13:08 meperidine [Demerol] Allergy Unknown Unknown Verified 08/05/23 13:08 metoclopramide [Reglan] Allergy Unknown Unknown Verified 08/05/23 13:08 morphine [Morphine] Allergy Unknown RASH Verified 08/05/23 13:08 haloperidol [From Haldol] Allergy Anaphylaxis Verified 08/05/23 13:08 ketamine Allergy Unknown Verified 08/05/23 13:08 From REGLAN Allergy Mild PT UNSURE Uncoded 08/05/23 13:08 BUT STATES HE IS ALLERGIC Compro Allergy Unknown Unknown Uncoded 08/05/23 13:08 From COMPAZINE Allergy Unknown ITCHING Uncoded 08/05/23 13:08 From Demerol Allergy Unknown ITCHY HIVES Uncoded 08/05/23 13:08 From Toradol Allergy Unknown UNK Uncoded 08/05/23 13:08 Review of Systems Review of Systems Yes all other systems are reviewed and are negative Constitutional: Reports no additional constitutional complaints, Denies body ache(s), Denies chills, Denies fever(s), Denies headache(s) and Denies weakness Eyes: Reports no additional eye complaints and Denies change in vision Reports system reviewed and no additional complaints, except as documented, Denies dizziness, Denies headache(s), Denies nasal congestion, Denies nasal discharge and Denies neck pain Cardiovascular: Reports no additional cardiovascular complaints, Denies chest pain, Denies leg edema and Denies dyspnea Respiratory: Reports no additional respiratory complaints, Denies cough and Denies dyspnea Gastrointestinal: Reports no additional gastrointestinal complaints, Reports abdominal pain, Denies melena, Reports hematochezia, Reports diarrhea, Reports nausea and Reports vomiting Genitourinary: Denies urinary incontinence Musculoskeletal: Reports no additional musculoskeletal complaints, Denies back pain, Denies arthralgias, Denies joint swelling, Denies neck pain, Denies numbness and Denies tingling Skin/Breast: Reports system reviewed and no additional complaints, except as docu and Denies rash Reports system reviewed and no additional complaints, except as documented, Denies Abnormal speech present, Denies dizziness, Denies headache(s), Denies numbness, Denies tingling and Denies weakness PMFSH Past Medical History Attestation statement: The following information was validated with the patient. Source: old records reviewed and nursing notes reviewed Medical History Cervicalgia Migraine Anxiety Crohn's disease IBD (inflammatory bowel disease) Partial small bowel obstruction Surgical History History of colostomy reversal S/P colostomy History of surgery on arm Hx of colonoscopy History of esophagogastroduodenoscopy (EGD) Family History Family History Mother HTN (hypertension) Social History Social History Household Members: Spouse Housing: House Do you presently have visiting nurse or other home services: No Alcohol intake: never Patient Tobacco Use Status: Never used Tobacco Smoked in Last 30 Days: No Use of substances other than those prescribed or required for medical reasons: No Advance Directives: No service: No Current occupational status: disabled Physical Exam ED Vital Signs: Vital Signs - 24 hr 09/05/23 11:29 09/05/23 12:59 09/05/23 14:04 Temperature 97.6 F 97.8 F Pulse Rate 70 67 Respiratory Rate 16 16 18 Blood Pressure 121/64 109/65 Pulse Oximetry 100 96 Oxygen Delivery Method Room Air Room Air BMI result Body Mass Index 24.1 Const General: cooperative, healthy appearing, comfortable and no acute distress Orientation/consciousness: patient oriented x3 Limitations: no limitations HENMT Head: Yes normal to inspection Ears: hearing grossly normal bilaterally General nose exam: Normal external nose present Face and sinus: Yes normal facial exam Mouth: Normal oral and palatal mucosa present Throat: Yes posterior oropharynx normal Eyes General: appearance normal, both eyes and all related structures Pupils: Equal, round and reactive pupils present Neck Neck: Yes normal visual inspection Chest Chest palpation & inspection: normal inspection of the chest Resp Effort & Inspection: normal respiratory effort Auscultation: clear to auscultation bilaterally Cardio Rate: regular rate Rhythm: regular rhythm Peripheral pulses: Peripheral pulses 2+ throughout GI Other: 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 Brown stool on rectal xam Inspection: Yes normal to inspection Palpation (GI): Soft to palpation, Tenderness to palpation present (GI) (diffusely tender) with no rebound tenderness and no guarding Auscultation: normal bowel sounds Back/Spine/Pelvis Thoracic/Lumbar Spine: thoracic and lumbar spine normal to inspection Skin General skin exam: no rashes or lesions noted Neuro General: patient oriented x3, no focal motor deficits and normal sensation to monofilament Cranial nerves: Yes Equal, round and reactive pupils present Cognition (Neuro): normal cognition Speech: No Abnormal speech present Gait exam (Neuro): Normal gait present Motor exam (neuro): 5/5 motor strength present throughout Extrem General: Yes normal to inspection Course Course Course Narrative: This is an RME: Additional HPI, ROS, PE not included below will be deferred to primary provider. Patient is a 42 year old male who presents to the emergency department expressing concern for Crohn's flare. He reports 2 days with abdominal pain and bloating. Has associated nausea and vomiting, inability to tolerate oral intake. Reports yesterday with bright red blood and dark red blood in stools but denies blood today. Plan: labs, U/A Reevaluation(s) Reevaluation #1: 1430-Delay in radiology results. Will call [place] Reevaluation #2: 1530-CT abdomen pelvis shows no acute finding. Labs show stable hemoglobin and hematocrit with normal chemistries and negative inflammatory markers. I have low suspicion for Crohn's flare and bowel obstruction based on the above findings. However, as the patient is followed closely by our Gastroenterology team I will reach out to them to determine if they have any other additional concerns Reevaluation #3: 1440-see recommendations from GI. Reviewed findings and plan with patient. Comfortable plan for discharge home. Medical Decision Making Medical Decision Making [facility] Narrative: 42-year-old male who has a history of Crohn's disease with a J-pouch who is currently receiving Humira presents to the ER with complaints of 2 days of right-sided abdominal pain. Yesterday he had approximately 10 episodes of bloody diarrhea. Patient reports no blood in his stools today. This morning he had 2 episodes of vomiting after trying to take his home oxycodone. He is concerned that he may have an obstruction. He had been seen by Dr. Espinosa from [facility] but is switching to a different health science writer within the same practice. He has an appointment in 2 weeks to be seen by them. Abdomen with diffuse tenderness to palp +BS Brown stool on rectal exam Will obtain labs including inflammatory markers, UA, CT Patient with multiple allergies and requesting IV dilaudid/phenergan Will give dose of dilaudid/phenergan with IVF but proceed cautiusly Differential Diagnosis Differential Diagnoses: The differential diagnosis associated with the presentation includes Crohn's flare, bowel obstruction Admission/Observation Consideration of admission/observation: Escalation of care including admission/observation considered Tolerating p.o., negative workup in the ER, no need for admission Consult Healthcare Provider Management of the patient was discussed with: Security Site Supervisor Spoke to patient's health science writer Dr. Espinosa who recommended p.r.n. Bentyl and outpatient follow-up Lab Data MDM Lab Attestation statement: I reviewed the patient's lab results. 09/05/23 11:53 09/05/23 11:53 Labs: Lab Results 09/05/23 09/05/23 09/05/23 Range/Units 11:53 11:58 12:05 WBC 5.1 (4.8-10.8) X10*3/uL RBC 4.55 L (4.60-5.80) X10*6/uL Hgb 14.3 (14.0-18.0) g/dl Hct 41.5 L (42.0-52.0) % MCV 91.2 (80.0-98.0) fL MCH 31.4 (27.0-33.0) pg MCHC 34.5 (31.0-36.0) g/dl RDW 12.7 (11.0-16.0) % Plt Count 147 L (160-400) X10*3/uL MPV 10.6 (9.4-12.4) fL Immature Gran % (Auto) 0.0 (0.0-0.4) % Neut % (Auto) 61.4 (45-73) % Lymph % (Auto) 30.9 (20-40) % [place] % (Auto) 6.3 (2-11) % Eos % (Auto) 1.0 (0-4) % Baso % (Auto) 0.4 (0-2) % Lymph # (Auto) 1.6 (1.2-4.9) X10*3/uL Randolph # (Auto) 0.3 (0.1-1.2) X10*3/uL Eos # (Auto) 0.1 (0.0-0.4) X10*3/uL Baso # (Auto) 0.0 (0.0-0.2) X10*3/uL Abs Immat Gran (auto) 0.00 (0.00-0.03) X10*3/uL Absolute Neuts (auto) 3.1 (2.0-8.3) x10*3/uL Absolute Nucleated RBC 0.000 (0.0-0.012) X10*3/uL Nucleated RBC % (auto) 0.0 (0.0-0.2) /100WBC ESR 7 (0-15) MM/HR Sodium 142 (135-145) mmol/L Potassium 4.1 (3.3-5.1) mmol/L Chloride 108 (96-108) mmol/L Carbon Dioxide 26 (22-29) mmol/L Anion Gap 12 (12-20) BUN 11 (9-16) mg/dL Creatinine 0.72 (0.5-1.4) mg/dL Estim Creat Clear Calc 113.8 Estimated GFR > 60 Random Glucose 94 (60-115) mg/dL Calcium 9.4 (8.4-10.2) mg/dL Magnesium 1.9 (1.6-2.6) mg/dL Total Bilirubin 0.7 (0.0-1.0) mg/dL AST 26 (5-37) U/L ALT 44 H (0-40) U/L Alkaline Phosphatase 72 (39-117) U/L C-Reactive Protein < 0.04 (< or = 0.50) mg/dL Total Protein 7.7 (6.5-8.0) g/dL Albumin 4.3 (3.5-5.0) g/dL Lipase 22 (8-78) U/L Urine Color Yellow Urine Appearance Clear Urine pH 6.5 (5.0-9.0) Ur Specific [place] 1.020 (1.005-1.025) Urine Protein Negative (Neg-Trace) mg/dL Urine Glucose (UA) Negative (Negative) mg/dL Urine Ketones Negative (Negative) mg/dL Urine Blood Negative (Negative) Urine Nitrite Negative (Negative) Ur Leukocyte Esterase Negative (Negative) Stool Occult Blood (NEGATIVE) Influenza Type A (PCR) NEGATIVE (Negative) Influenza Type B (PCR) NEGATIVE (Negative) RSV RNA Qual (PCR) NEGATIVE (Negative) SARS-CoV-2 RNA (RT-PCR) NEGATIVE (Negative) 09/05/23 Range/Units 12:55 WBC (4.8-10.8) X10*3/uL RBC (4.60-5.80) X10*6/uL Hgb (14.0-18.0) g/dl Hct (42.0-52.0) % MCV (80.0-98.0) fL MCH (27.0-33.0) pg MCHC (31.0-36.0) g/dl RDW (11.0-16.0) % Plt Count (160-400) X10*3/uL MPV (9.4-12.4) fL Immature Gran % (Auto) (0.0-0.4) % Neut % (Auto) (45-73) % Lymph % (Auto) (20-40) % Randolph % (Auto) (2-11) % Eos % (Auto) (0-4) % Baso % (Auto) (0-2) % Lymph # (Auto) (1.2-4.9) X10*3/uL Randolph # (Auto) (0.1-1.2) X10*3/uL Eos # (Auto) (0.0-0.4) X10*3/uL Baso # (Auto) (0.0-0.2) X10*3/uL Abs Immat Gran (auto) (0.00-0.03) X10*3/uL Absolute Neuts (auto) (2.0-8.3) x10*3/uL Absolute Nucleated RBC (0.0-0.012) X10*3/uL Nucleated RBC % (auto) (0.0-0.2) /100WBC ESR (0-15) MM/HR Sodium (135-145) mmol/L Potassium (3.3-5.1) mmol/L Chloride (96-108) mmol/L Carbon Dioxide (22-29) mmol/L Anion Gap (12-20) BUN (9-16) mg/dL Creatinine (0.5-1.4) mg/dL Estim Creat Clear Calc Estimated GFR Random Glucose (60-115) mg/dL Calcium (8.4-10.2) mg/dL Magnesium (1.6-2.6) mg/dL Total Bilirubin (0.0-1.0) mg/dL AST (5-37) U/L ALT (0-40) U/L Alkaline Phosphatase (39-117) U/L C-Reactive Protein (< or = 0.50) mg/dL Total Protein (6.5-8.0) g/dL Albumin (3.5-5.0) g/dL Lipase (8-78) U/L Urine Color Urine Appearance Urine pH (5.0-9.0) Ur Specific [place] (1.005-1.025) Urine Protein (Neg-Trace) mg/dL Urine Glucose (UA) (Negative) mg/dL Urine Ketones (Negative) mg/dL Urine Blood (Negative) Urine Nitrite (Negative) Ur Leukocyte Esterase (Negative) Stool Occult Blood NEGATIVE (NEGATIVE) Influenza Type A (PCR) (Negative) Influenza Type B (PCR) (Negative) RSV RNA Qual (PCR) (Negative) SARS-CoV-2 RNA (RT-PCR) (Negative) Independent Interpretation I performed an independent interpretation of an: CT Scan Interpretation: I independently viewed the CT scan agree with the radiology report Radiology Impression Discussion of test interpretation with radiology: I have reviewed the radiologist's reading. Radiologist Impression: [place] [id number] CT Scan Report Signed Patient: Jony Julio MR#: [id number] : 1980 Acct:[id number] Age/Sex: 42 / M ADM Date: 09/05/23 Loc: .ED Attending Dr: Ordering Physician: Rafaela Rehman NP Date of Service: 09/05/23 Procedure(s): CT abdomen pelvis w IV con Accession Number(s): [id number] cc: Daina Pichardo MD; Rafaela Rehman NP~ EXAMINATION: CT ABDOMEN AND PELVIS WITH CONTRAST CLINICAL INFORMATION: Abdominal pain, vomiting, history of Crohn's, rule out small bowel obstruction COMPARISON: CT abdomen pelvis 04/06/2023. TECHNIQUE: Multidetector volumetric images were obtained from the superior aspect of the liver through the pubic symphysis following administration 85 mL of Omnipaque 350 intravenous contrast. Sagittal and coronal reformatted images were obtained on the technologist's workstation. Oral contrast: No This CT examination was performed using dose optimization techniques as appropriate, variously including the following: *Automated exposure control *Adjustment of mA and/or kV according to patient size (this includes techniques or standardized protocols for targeted exams where dose is matched to indication/reason for exam; i.e. extremities or head) *Use of iterative reconstruction technique DLP: 468 mGy-cm FINDINGS: LUNG BASES: Unremarkable. LIVER AND BILIARY TREE: Unremarkable. GALLBLADDER: Status post cholecystectomy. PANCREAS: Mild fatty infiltration of the pancreatic head.. SPLEEN: Splenomegaly with spleen spanning 13 cm in craniocaudal dimension. ADRENAL GLANDS: Unremarkable. KIDNEYS AND URETERS: Punctate, 3 mm inferior pole left renal nonobstructing calculus. Kidneys otherwise unremarkable. 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 Fecalization of distal small bowel contents suggesting slow transit. Small bowel anastomosis in the right anterior pelvis without bowel dilation. No bowel wall thickening or perienteric fluid/fat stranding identified. VASCULAR: Unremarkable LYMPH NODES: No lymphadenopathy. PERITONEUM: No ascites. Scattered surgical clips in the upper peritoneum. BLADDER: Unremarkable. PELVIC VISCERA: Unremarkable. ABDOMINAL AND PELVIC WALL: Unremarkable. OSSEOUS STRUCTURES: Unremarkable. CT/CT abdomen pelvis w IV con IMPRESSION: 1. No acute abnormality of the abdomen or pelvis. 2. Redemonstrated postoperative appearance from total colectomy and ileoanal anastomosis without evidence of active small bowel inflammation or obstruction as clinically queried. Fecalization of distal small bowel contents suggesting slow transit. 3. Splenomegaly. 4. Punctate, 3 mm nonobstructing left renal calculus. Independent Historian Clinical information obtained from an independent historian. History obtained from or confirmed by: Friend Prescription Management I considered prescription management with: Antibiotic Medications Administered Discontinued Medications Generic Name Dose Route Start Last Admin Trade Name Freq PRN Reason Stop Dose Admin Hydromorphone HCl 0.5 mg 09/05/23 12:33 09/05/23 12:59 Hydromorphone Hcl 0.5 Mg/0.5 Ml Syringe IVPUSH 09/05/23 12:34 0.5 mg ONCE ONE Administration Protocol Promethazine HCl 6.25 mg/ 50.25 mls @ 201 mls/hr 09/05/23 12:33 09/05/23 13:45 Sodium Chloride IV 09/05/23 12:34 Infused ONCE ONE Infusion Iohexol 100 ml 09/05/23 12:49 09/05/23 12:49 Iohexol 350 Mg/Ml 100 Ml Infus..Btl IV 09/05/23 12:50 85 ml ONCE ONE Administration Discharge Plan Discharge Clinical Impression: Abdominal pain Patient Disposition: Home, Self-Care Instructions: Abdominal Pain (ED) Additional Instructions: Your lab work and CT scan are reassuring We did speak to Gastroenterology on-call they recommended trialing Bentyl. Please continue with your plan to follow-up with Gastroenterology outpatient. Please return for any worsening symptoms. Prescriptions: New dicyclomine 10 mg capsule 10 mg PO QID PRN (Reason: abdominal pain) Qty: 15 0RF No Action tizanidine 4 mg tablet 6 mg PO BEDTIME PRN (Reason: Muscle Spasm) 30 Days Qty: 135 3RF propranolol 10 mg tablet 10 mg PO BID 90 Days Qty: 180 1RF magnesium oxide 400 mg (241.3 mg magnesium) tablet 400 mg PO BEDTIME 30 Days Qty: 30 6RF Rx Instructions: may hold for loose stools topiramate 25 mg tablet 25 - 50 mg PO DAILY 30 Days Qty: 60 6RF hydrocortisone 1 % cream 1 appl topical BID PRN (Reason: Itching) tramadol 50 mg tablet 50 mg PO BID PRN (Reason: moderate pain (scale score 5-6)) Qty: 14 0RF promethazine 25 mg tablet 25 mg PO Q6H PRN (Reason: nausea and vomiting) Qty: 10 0RF metronidazole 500 mg tablet 500 mg PO BID 7 Days Qty: 14 0RF oxycodone 5 mg tablet 5 mg PO Q8H PRN (Reason: pain) Qty: 5 0RF Rx Instructions: Partial Fill upon patient request. docusate sodium [Colace] 100 mg capsule 100 mg PO BID PRN (Reason: Constipation) Qty: 14 0RF polyethylene glycol 3350 [Miralax] 17 gram/dose powder 17 g PO DAILY Qty: 119 0RF ondansetron HCl 4 mg tablet 4 mg PO Q8H Qty: 14 0RF clonazepam 1 mg tablet 1 tab PO BID PRN (Reason: Anxiety) omeprazole 20 mg capsule,delayed release(DR/EC) 2 cap PO DAILY@0630 zolpidem 10 mg tablet 1 tab PO BEDTIME loratadine 10 mg tablet 1 tab PO DAILY PRN (Reason: Allergy Symptoms) Humira(CF) Pen 40 mg/0.4 mL pen injector kit 40 mg subcut TH@0900 multivitamin with folic acid [Daily-Davis (with folic acid)] 400 mcg tablet 1 tab PO DAILY hydrocortisone 100 mg/60 mL enema 100 mg NE DAILY 14 Days Qty: 840 0RF oxycodone 5 mg capsule 5 mg PO BID PRN (Reason: severe pain) Qty: 6 0RF Rx Instructions: Partial Fill upon patient request. prednisone 20 mg tablet 60 mg PO DAILY 5 Days Qty: 15 0RF sumatriptan succinate 100 mg tablet 50 - 100 mg PO .COMPLEX PRN (Reason: migraine headache) 30 Days Qty: 12 6RF Rx Instructions: 50 - 100 mg orally at onset of headache, may repeat in 2 hrs PRN; max 2 tabs per day or 4 tabs/week (may take with Ibuprofen) Referrals: [facility] [place] [facility] [Provider Group] - 1 week
[2023-09-05 11:29] VITALS: BP 121/64; PULSE 70; RESP 16; TEMP 36.4; O2SAT 100; BMI 24.1
[2023-09-05 11:59] LABS: MANUAL DIFF FLAG NO
[2023-09-05 12:00] LABS: Basophils Percent Auto 0.4 % (0-2); Eosinophils Absolute Auto 0.1 X10*3/uL (0.0-0.4); Hematocrit 41.5 % (42.0-52.0); Hemoglobin 14.3 g/dl (14.0-18.0); Lymphocytes Absolute Auto 1.6 X10*3/uL (1.2-4.9); Lymphocytes Percent Auto 30.9 % (20-40); Mean Corpuscular HGB Conc 34.5 g/dl (31.0-36.0); Mean Corpuscular Hemoglobin 31.4 pg (27.0-33.0); Mean Corpuscular Volume 91.2 fL (80.0-98.0); Mean Platelet Volume 10.6 fL (9.4-12.4); Monocytes Absolute Auto 0.3 X10*3/uL (0.1-1.2); Monocytes Percent Auto 6.3 % (2-11); Neutrophils Absolute Auto 3.1 x10*3/uL (2.0-8.3); Neutrophils Percent Auto 61.4 % (45-73); Platelet Count 147 X10*3/uL (160-400); Red Blood Count 4.55 X10*6/uL (4.60-5.80); Red Cell Distribution Width 12.7 % (11.0-16.0); White Blood Count 5.1 X10*3/uL (4.8-10.8)
[2023-09-05 12:13] LABS: Alanine Aminotransferase 44 U/L (0-40); Albumin Level 4.3 g/dL (3.5-5.0); Alkaline Phosphatase 72 U/L (39-117); Anion Gap 12 (12-20); Aspartate Amino Transferase 26 U/L (5-37); Bilirubin Total 0.7 mg/dL (0.0-1.0); Blood Urea Nitrogen 11 mg/dL (9-16); C Reactive Protein < 0.04 mg/dL (< or = 0.50); Calcium 9.4 mg/dL (8.4-10.2); Carbon Dioxide 26 mmol/L (22-29); Chloride 108 mmol/L (96-108); Creatinine Clr Calc Pharmacy 113.8; Estimated Glomerular Filt Rate > 60; Glucose Random 94 mg/dL (60-115); Lipase 22 U/L (8-78); Magnesium 1.9 mg/dL (1.6-2.6); Potassium 4.1 mmol/L (3.3-5.1); Sodium 142 mmol/L (135-145); Total Protein 7.7 g/dL (6.5-8.0)
[2023-09-05 12:15] LABS: Appearance Urine Clear; Color Urine Yellow; Glucose Urine UA Negative (Negative); Leukocyte Esterase Urine Negative (Negative); Nitrite Urine Negative (Negative); PH 6.5 (5.0-9.0); Urine Blood Negative (Negative); Urine Ketones Negative (Negative); Urine Protein Negative (Neg-Trace)
[2023-09-05 12:43] LABS: Erythrocyte Sedimentation Rate 7 MM/HR (0-15)
[2023-09-05 12:45] LABS: Influenza A PCR NEGATIVE (Negative); Influenza B PCR NEGATIVE (Negative); Resp Syncy Virus RNA Qual PCR NEGATIVE (Negative); SARS COV2 PCR INHOUSE NEGATIVE (Negative)
[2023-09-05] MEDS: iohexoL 350 MG/ML 100 ML INFUS..BTL IV (12:49)
[2023-09-05 12:59] VITALS: RESP 16
[2023-09-05] MEDS: HYDROmorphone HCl 0.5 MG/0.5 ML SYRINGE IVPUSH (12:59)
[2023-09-05 13:09] LABS: OBS Int Ctl Valid YES; OBS1 NEGATIVE (NEGATIVE)
--- NOTE | 2023-09-05 13:45 | PC.NURSE ---
pt a&ox4, vss, reporting 10/10 generalized abd pain w 3 days, nausea, vomiting, diarrhea w bright red blood in stool. 20G IV placed L wrist, labs drawn, medicated per SEP. urine sample obtained, OBX sent to lab. no new orders at this time.
[2023-09-05 14:04] VITALS: BP 109/65; PULSE 67; RESP 18; TEMP 36.6; O2SAT 96
== END 2023-09-05 15:54 | disposition home or self-care (01) ==
PROVIDERS: Nurse Practitioner Family; Emergency Provider Emergency Medicine; PCP Student in an Organized Health Care Education/Training Program
DX: R10.31 Right lower quadrant pain (principal); R19.7 Diarrhea, unspecified; R11.2 Nausea with vomiting, unspecified; Z20.822 Contact with and (suspected) exposure to COVID-19; Z11.52 Encounter for screening for COVID-19; Z79.899 Other long term (current) drug therapy
CPT/HCPCS: 0241U; 36415; 74177; 80053; 81003; 82272; 83690; 83735; 85025; 85652; 86140; 96365; 96375; 99284; 99285; J1170; J2550; Q9967

== ENCOUNTER 2023-12-20 08:56 | Outpatient (REF) | payer OTHER, SELFPAY ==
[2023-12-20 12:26] LABS: Alanine Aminotransferase 32 U/L (0-40); Albumin Level 4.4 g/dL (3.5-5.0); Alkaline Phosphatase 58 U/L (39-117); Anion Gap 14 (12-20); Aspartate Amino Transferase 31 U/L (5-37); Bilirubin Total 1.2 mg/dL (0.0-1.0); Blood Urea Nitrogen 9 mg/dL (9-16); Calcium 9.7 mg/dL (8.4-10.2); Carbon Dioxide 28 mmol/L (22-29); Chloride 104 mmol/L (96-108); Cholesterol 185 mg/dL (<200); Estimated Glomerular Filt Rate > 60; Glucose Random 89 mg/dL (60-115); HDL Cholesterol 67 mg/dL (>40); LDL Cholesterol Calculated 97 mg/dL (<100); Potassium 3.8 mmol/L (3.3-5.1); Sodium 142 mmol/L (135-145); Total Protein 7.6 g/dL (6.5-8.0); Triglycerides 107 mg/dL (<150)
[2023-12-20 12:40] LABS: Folate 11.3 ng/mL (> or = 4.0); Vitamin B12 618 pg/mL (200-900)
== END 2023-12-20 08:57 | disposition home or self-care (01) ==
LOC: HO.HHCL 08:56
PROVIDERS: Visit Provider Student in an Organized Health Care Education/Training Program
DX: E78.5 Hyperlipidemia, unspecified (principal)
CPT/HCPCS: 36415; 80053; 80061; 82607; 82746

== ENCOUNTER 2024-01-03 00:48 | Emergency (ER) | payer OTHER, SELFPAY ==
[2024-01-03 01:03] VITALS: BP 103/73; PULSE 65; RESP 20; TEMP 36.5; O2SAT 97; BMI 26.0
--- NOTE | 2024-01-03 01:12 | MHC.EDTECH ---
Patient brought to triage area,labs drawn and sent to lab.
[2024-01-03 01:18] LABS: MANUAL DIFF FLAG NO
[2024-01-03 01:20] LABS: Basophils Percent Auto 0.5 % (0-2); Eosinophils Absolute Auto 0.1 X10*3/uL (0.0-0.4); Eosinophils Percent Auto 1.1 % (0-4); Hematocrit 39.3 % (42.0-52.0); Hemoglobin 13.9 g/dl (14.0-18.0); Imm Gran Abs Auto 0.01 X10*3/uL (0.00-0.03); Imm Gran Pct Auto 0.2 % (0.0-0.4); Lymphocytes Absolute Auto 2.6 X10*3/uL (1.2-4.9); Lymphocytes Percent Auto 42.4 % (20-40); Mean Corpuscular HGB Conc 35.4 g/dl (31.0-36.0); Mean Corpuscular Hemoglobin 32.4 pg (27.0-33.0); Mean Corpuscular Volume 91.6 fL (80.0-98.0); Mean Platelet Volume 10.8 fL (9.4-12.4); Monocytes Absolute Auto 0.4 X10*3/uL (0.1-1.2); Monocytes Percent Auto 6.2 % (2-11); Neutrophils Percent Auto 49.6 % (45-73); Platelet Count 149 X10*3/uL (160-400); Red Blood Count 4.29 X10*6/uL (4.60-5.80); Red Cell Distribution Width 12.6 % (11.0-16.0); White Blood Count 6.1 X10*3/uL (4.8-10.8)
[2024-01-03 01:35] LABS: Alanine Aminotransferase 78 U/L (0-40); Alkaline Phosphatase 73 U/L (39-117); Anion Gap 13 (12-20); Aspartate Amino Transferase 33 U/L (5-37); Bilirubin Total 0.6 mg/dL (0.0-1.0); Blood Urea Nitrogen 14 mg/dL (9-16); Calcium 9.3 mg/dL (8.4-10.2); Carbon Dioxide 27 mmol/L (22-29); Chloride 104 mmol/L (96-108); Creatinine Clr Calc Pharmacy 90.8; Estimated Glomerular Filt Rate > 60; Glucose Random 80 mg/dL (60-115); Potassium 3.9 mmol/L (3.3-5.1); Sodium 140 mmol/L (135-145); Total Protein 7.2 g/dL (6.5-8.0)
--- NOTE | 2024-01-03 04:05 | ED_ITS ---
HPI - General Adult General Chief complaint: Abdominal Pain Stated complaint: crohns disease flare up Time Seen by Provider: 01/03/24 04:05 History of Present Illness ED Provider: Lyndon PHAN narrative: The patient is a 43-year-old male with a history of Crohn's disease. He says that he has had worsening symptoms for about 5 days with abdominal bloating, green liquid stool, and worsening abdominal pain. He says he has had nausea and vomiting. He says he has sometimes had blood in his stool. He says that because of his nausea has not been able to keep any of his routine medications down. No definite fever. Related Data Home Medications ?Medication ?Instructions ?Recorded ?Confirmed adalimumab 40 mg/0.4 mL 40 mg subcut TH@0900 08/19/21 06/11/22 subcutaneous pen kit (Humira(CF) Pen) clonazepam 1 mg tablet 1 tab PO BID PRN Anxiety 08/19/21 06/11/22 loratadine 10 mg tablet 1 tab PO DAILY PRN Allergy Symptoms 08/19/21 06/11/22 omeprazole 20 mg capsule,delayed 2 cap PO DAILY@0630 08/19/21 06/11/22 release zolpidem 10 mg tablet 1 tab PO BEDTIME 08/19/21 06/11/22 hydrocortisone 1 % topical cream 1 appl topical BID PRN Itching 09/18/21 06/11/22 multivitamin with folic acid 400 1 tab PO DAILY 06/11/22 06/11/22 mcg tablet (Daily-Davis (with folic acid)) Previous Rx's ?Medication ?Instructions ?Recorded tizanidine 4 mg tablet 6 mg (1.5 x 4 mg) PO BEDTIME PRN 03/25/22 Muscle Spasm 30 days #135 tabs propranolol 10 mg tablet 10 mg PO BID 90 days #180 tabs 03/26/22 tramadol 50 mg tablet 50 mg PO BID PRN moderate pain 04/17/22 (scale score 5-6) #14 tabs sumatriptan succinate 100 mg tablet 50 - 100 mg (0.5 - 1 x 100 mg) PO 06/14/22 .COMPLEX PRN migraine headache 30 days #12 tabs magnesium oxide 400 mg (241.3 mg 400 mg PO BEDTIME 30 days #30 tabs 07/03/22 magnesium) tablet metronidazole 500 mg tablet 500 mg PO BID 7 days #14 tabs 07/14/22 oxycodone 5 mg tablet 5 mg PO Q8H PRN pain #5 tabs 07/14/22 promethazine 25 mg tablet 25 mg PO Q6H PRN nausea and 07/14/22 vomiting #10 tabs topiramate 25 mg tablet 25 - 50 mg (1 - 2 x 25 mg) PO 09/14/22 DAILY 30 days #60 tabs docusate sodium 100 mg capsule 100 mg PO BID PRN Constipation #14 09/28/22 (Colace) caps ondansetron HCl 4 mg tablet 4 mg PO Q8H #14 tabs 09/28/22 polyethylene glycol 3350 17 17 g PO DAILY #119 grams 09/28/22 gram/dose oral powder (Miralax) oxycodone 5 mg capsule 5 mg PO BID PRN severe pain #6 caps 11/02/22 prednisone 20 mg tablet 60 mg (3 x 20 mg) PO DAILY 5 days 01/31/23 #15 tabs hydrocortisone 100 mg/60 mL enema 100 mg (60 mL) [place] DAILY 2 weeks 04/06/23 #840 mL dicyclomine 10 mg capsule 10 mg PO QID PRN abdominal pain 09/05/23 #15 caps Allergies Allergy/AdvReac Type Severity Reaction Status Date / Time ondansetron [Ondansetron] Allergy Mild HIVES Verified 01/03/24 01:06 Sulfa (Sulfonamide Allergy Mild UNKNOWN Verified 01/03/24 01:06 Antibiotics) ketorolac Allergy Unknown Unknown Verified 01/03/24 01:06 meperidine [Demerol] Allergy Unknown Unknown Verified 01/03/24 01:06 metoclopramide [Reglan] Allergy Unknown Unknown Verified 01/03/24 01:06 morphine [Morphine] Allergy Unknown RASH Verified 01/03/24 01:06 haloperidol [From Haldol] Allergy Anaphylaxis Verified 01/03/24 01:06 ketamine Allergy Unknown Verified 01/03/24 01:06 From REGLAN Allergy Mild PT UNSURE Uncoded 01/03/24 01:06 BUT STATES HE IS ALLERGIC Compro Allergy Unknown Unknown Uncoded 01/03/24 01:06 From COMPAZINE Allergy Unknown ITCHING Uncoded 01/03/24 01:06 From Demerol Allergy Unknown ITCHY HIVES Uncoded 01/03/24 01:06 From Toradol Allergy Unknown UNK Uncoded 01/03/24 01:06 Review of Systems 2 Review of Systems: Yes all other systems are reviewed and are negative [facility] Past Medical History Medical History Cervicalgia Migraine Anxiety Crohn's disease IBD (inflammatory bowel disease) Partial small bowel obstruction Surgical History History of colostomy reversal S/P colostomy History of surgery on arm Hx of colonoscopy History of esophagogastroduodenoscopy (EGD) Family History Family History Mother HTN (hypertension) Social History Social History Household Members: Spouse Housing: House Do you presently have visiting nurse or other home services: No Alcohol intake: never Patient Tobacco Use Status: Never used Tobacco Smoked in Last 30 Days: No Use of substances other than those prescribed or required for medical reasons: No Advance Directives: No Advance Directives Information Provided: No service: No Current occupational status: disabled Physical Exam ED Vital Signs: Vital Signs - 24 hr 01/03/24 01:03 01/03/24 04:25 01/03/24 04:33 Temperature 97.7 F 97.7 F Pulse Rate 65 59 Respiratory Rate 20 17 18 Blood Pressure 103/73 116/53 L Pulse Oximetry 97 98 Oxygen Delivery Method Room Air Room Air BMI result Body Mass Index 26.0 Const Other: The patient is awake and alert. The patient did not appear in obvious distress although he said he was uncomfortable. HENMT Other: Face is symmetrical, mucous membranes moist. Eyes Other: Pupils are round equal, conjunctivae clear Neck Other: Moving his neck easily, no neck swelling Resp Effort & Inspection: normal respiratory effort Auscultation: clear to auscultation bilaterally Cardio Rate: regular rate Rhythm: regular rhythm Heart sounds: S1 normal heart sound present and S2 normal heart sound present GI Other: The patient has a protuberant abdomen. Bowel sounds are present. He is tender in all quadrants. Skin Other: Skin is dry and unremarkable Neuro Other: The patient is awake and alert with a normal mental status. Cranial nerves are grossly intact. He moves all 4 extremities normally and has a normal gait. Extrem Other: No peripheral edema Medications Administered Discontinued Medications Generic Name Dose Route Start Last Admin Trade Name Lenore PRN Reason Stop Dose Admin Diphenhydramine HCl 50 mg 01/03/24 04:15 01/03/24 04:25 Diphenhydramine Hcl 50 Mg/Ml Vial IVPUSH 01/03/24 04:16 50 mg ONCE ONE Administration Hydromorphone HCl 0.5 mg 01/03/24 04:15 01/03/24 04:25 Hydromorphone Hcl 0.5 Mg/0.5 Ml Syringe IVPUSH 01/03/24 04:16 0.5 mg ONCE ONE Administration Protocol Sodium Chloride 1,000 mls @ 999 mls/hr 01/03/24 04:30 01/03/24 04:27 Ns IV 01/03/24 05:30 999 mls/hr .Q1H1M DULCE MARIA Administration Ondansetron HCl 4 mg 01/03/24 04:15 01/03/24 04:25 Ondansetron Hcl 4 Mg/2 Ml Vial IVPUSH 01/03/24 04:16 4 mg ONCE ONE Administration Medical Decision Making Medical Decision Making MDM Narrative: Patient is a 43-year-old male with a history of Crohn's disease who says that he has been having worsening symptoms of his Crohn's disease over the last 5 days with the abdominal pain, abdominal bloating, vomiting, and loose stools. The patient is afebrile. He is not tachycardic. His vital signs are all quite unremarkable and reassuring. The patient's labs show a white count of 6.1. The differential shows 50% neutrophils and 42% lymphocytes. The patient's basic metabolic panel is normal with no anion gap or acidosis. The patient was treated with IV hydromorphone, IV diphenhydramine, and IV ondansetron. Given the normal labs and normal vital signs the patient and I agreed that we should probably not do a CAT scan today. The patient requested a 2nd round of pain medications and would then feel well enough for discharge to follow up with his autopsy pathologist. Lab Data 01/03/24 01:12 01/03/24 01:12 Labs: Lab Results 01/03/24 Range/Units 01:12 WBC 6.1 (4.8-10.8) X10*3/uL RBC 4.29 L (4.60-5.80) X10*6/uL Hgb 13.9 L (14.0-18.0) g/dl Hct 39.3 L (42.0-52.0) % MCV 91.6 (80.0-98.0) fL MCH 32.4 (27.0-33.0) pg MCHC 35.4 (31.0-36.0) g/dl RDW 12.6 (11.0-16.0) % Plt Count 149 L (160-400) X10*3/uL MPV 10.8 (9.4-12.4) fL Immature Gran % (Auto) 0.2 (0.0-0.4) % Neut % (Auto) 49.6 (45-73) % Lymph % (Auto) 42.4 H (20-40) % Winn % (Auto) 6.2 (2-11) % Eos % (Auto) 1.1 (0-4) % Baso % (Auto) 0.5 (0-2) % Lymph # (Auto) 2.6 (1.2-4.9) X10*3/uL Winn # (Auto) 0.4 (0.1-1.2) X10*3/uL Eos # (Auto) 0.1 (0.0-0.4) X10*3/uL Baso # (Auto) 0.0 (0.0-0.2) X10*3/uL Abs Immat Gran (auto) 0.01 (0.00-0.03) X10*3/uL Absolute Neuts (auto) 3.0 (2.0-8.3) x10*3/uL Absolute Nucleated RBC 0.000 (0.0-0.012) X10*3/uL Nucleated RBC % (auto) 0.0 (0.0-0.2) /100WBC Sodium 140 (135-145) mmol/L Potassium 3.9 (3.3-5.1) mmol/L Chloride 104 (96-108) mmol/L Carbon Dioxide 27 (22-29) mmol/L Anion Gap 13 (12-20) BUN 14 (9-16) mg/dL Creatinine 0.86 (0.5-1.4) mg/dL Estim Creat Clear Calc 90.8 Estimated GFR > 60 Random Glucose 80 (60-115) mg/dL Calcium 9.3 (8.4-10.2) mg/dL Total Bilirubin 0.6 (0.0-1.0) mg/dL AST 33 (5-37) U/L ALT 78 H (0-40) U/L Alkaline Phosphatase 73 (39-117) U/L C-Reactive Protein < 0.04 (< or = 0.50) mg/dL Total Protein 7.2 (6.5-8.0) g/dL Albumin 4.0 (3.5-5.0) g/dL Discharge Plan Discharge Clinical Impression: Abdominal pain with vomiting, Crohn's disease Patient Disposition: Home, Self-Care Additional Instructions: Your testing today was reassuring. Your inflammatory markers are unremarkable. Please continue your regular medications at home. Please contact your autopsy pathologist later this morning to arrange follow up and re-evaluation. Prescriptions: No Action tizanidine 4 mg tablet 6 mg PO BEDTIME PRN (Reason: Muscle Spasm) 30 Days Qty: 135 3RF propranolol 10 mg tablet 10 mg PO BID 90 Days Qty: 180 1RF magnesium oxide 400 mg (241.3 mg magnesium) tablet 400 mg PO BEDTIME 30 Days Qty: 30 6RF Rx Instructions: may hold for loose stools topiramate 25 mg tablet 25 - 50 mg PO DAILY 30 Days Qty: 60 6RF hydrocortisone 1 % cream 1 appl topical BID PRN (Reason: Itching) tramadol 50 mg tablet 50 mg PO BID PRN (Reason: moderate pain (scale score 5-6)) Qty: 14 0RF promethazine 25 mg tablet 25 mg PO Q6H PRN (Reason: nausea and vomiting) Qty: 10 0RF metronidazole 500 mg tablet 500 mg PO BID 7 Days Qty: 14 0RF oxycodone 5 mg tablet 5 mg PO Q8H PRN (Reason: pain) Qty: 5 0RF Rx Instructions: Partial Fill upon patient request. docusate sodium [Colace] 100 mg capsule 100 mg PO BID PRN (Reason: Constipation) Qty: 14 0RF polyethylene glycol 3350 [Miralax] 17 gram/dose powder 17 g PO DAILY Qty: 119 0RF ondansetron HCl 4 mg tablet 4 mg PO Q8H Qty: 14 0RF clonazepam 1 mg tablet 1 tab PO BID PRN (Reason: Anxiety) omeprazole 20 mg capsule,delayed release(DR/EC) 2 cap PO DAILY@0630 zolpidem 10 mg tablet 1 tab PO BEDTIME loratadine 10 mg tablet 1 tab PO DAILY PRN (Reason: Allergy Symptoms) Humira(CF) Pen 40 mg/0.4 mL pen injector kit 40 mg subcut TH@0900 multivitamin with folic acid [Daily-Davis (with folic acid)] 400 mcg tablet 1 tab PO DAILY hydrocortisone 100 mg/60 mL enema 100 mg [place] DAILY 14 Days Qty: 840 0RF dicyclomine 10 mg capsule 10 mg PO QID PRN (Reason: abdominal pain) Qty: 15 0RF oxycodone 5 mg capsule 5 mg PO BID PRN (Reason: severe pain) Qty: 6 0RF Rx Instructions: Partial Fill upon patient request. prednisone 20 mg tablet 60 mg PO DAILY 5 Days Qty: 15 0RF sumatriptan succinate 100 mg tablet 50 - 100 mg PO .COMPLEX PRN (Reason: migraine headache) 30 Days Qty: 12 6RF Rx Instructions: 50 - 100 mg orally at onset of headache, may repeat in 2 hrs PRN; max 2 tabs per day or 4 tabs/week (may take with Ibuprofen) Referrals: Kyle Espinosa MD [Physician] - (abdominal pain and vomiting, Crohn's disease) Print Language: Jordanian
[2024-01-03 04:25] VITALS: RESP 17
[2024-01-03 04:25] LABS: C Reactive Protein < 0.04 mg/dL (< or = 0.50)
[2024-01-03] MEDS: HYDROmorphone HCl 0.5 MG/0.5 ML SYRINGE IVPUSH ×2 (04:25→05:43)
[2024-01-03] MEDS: diphenhydrAMINE HCL 50 MG/ML VIAL IVPUSH (04:25)
[2024-01-03] MEDS: ondansetron HCL 4 MG/2 ML VIAL IVPUSH (04:25)
[2024-01-03] MEDS: 0.9 % Sodium Chloride 1,000 ML 999 ML IV (04:27)
[2024-01-03 04:33] VITALS: BP 116/53; PULSE 59; RESP 18; TEMP 36.5; O2SAT 98
--- NOTE | 2024-01-03 04:34 | PC.NURSE ---
pt from home, a&ox4, respirations even and unlabored. pt reporting onset of abdominal pain, n/v/d x1 week. pt reports hx of chrones disease and reports his provider said to come into the ED. pt denies any blood in stool or vomit. 20G placed in left wrist, pt medciated per sep. pt noted to have allergy to zofran, Dr. Ford petersenayed to give with benedryl. pt reports previously they administered zofran the same way. no acute distress noted.
[2024-01-03 05:43] VITALS: RESP 18
[2024-01-03] MEDS: Promethazine HCL 25 MG TABLET 50 MG PO (05:43)
[2024-01-03 06:03] VITALS: BP 101/68; PULSE 55; RESP 14; TEMP 36.4; O2SAT 97
[2024-01-03 06:04] VITALS: BP 101/68; PULSE 55; RESP 14; TEMP 36.4; O2SAT 97
== END 2024-01-03 06:05 | disposition home or self-care (01) ==
PROVIDERS: Emergency Provider Emergency Medicine; PCP Student in an Organized Health Care Education/Training Program
DX: K50.90 Crohn's disease, unspecified, without complications (principal); R11.2 Nausea with vomiting, unspecified; Z79.899 Other long term (current) drug therapy
CPT/HCPCS: 36415; 80053; 85025; 86140; 96361; 96374; 96375; 96376; 99284; J1170; J1200; J2405

== ENCOUNTER 2024-02-08 00:52 | Emergency (ER) | payer OTHER, SELFPAY ==
--- NOTE | ~2024-02-08 | CT_ITS ---
EXAMINATION: CT ABDOMEN AND PELVIS WITH CONTRAST CLINICAL INFORMATION: Diffuse abdominal pain, history of Crohn's COMPARISON: 09/05/2023 TECHNIQUE: Multidetector volumetric images were obtained from the superior aspect of the liver through the pubic symphysis following administration 85 mL of Omnipaque 350 intravenous contrast. Sagittal and coronal reformatted images were obtained on the technologist's workstation. Oral contrast: No This CT examination was performed using dose optimization techniques as appropriate, variously including the following: *Automated exposure control *Adjustment of mA and/or kV according to patient size (this includes techniques or standardized protocols for targeted exams where dose is matched to indication/reason for exam; i.e. extremities or head) *Use of iterative reconstruction technique DLP: 464 mGy-cm FINDINGS: LUNG BASES: The visualized lung bases are unremarkable. LIVER, GALLBLADDER, AND BILIARY TREE: The liver is normal in size, shape, and attenuation. No focal hepatic lesion or biliary ductal dilatation is present. Patient is status post cholecystectomy. PANCREAS: Unremarkable. SPLEEN: Unremarkable. ADRENAL GLANDS: Unremarkable. KIDNEYS AND URETERS: Bilateral nephrograms are symmetric. No hydronephrosis or obstructing calculus identified. Few tiny bilateral renal calculi are noted. Few tiny subcentimeter hypoattenuating renal foci statistically favor cysts though are too small to characterize; no follow-up recommended. BLADDER: Mild diffuse mural prominence which may be due to underdistention. GASTROINTESTINAL TRACT: Patient appears to be status post colectomy with ileoanal pouch formation. There is mild fluid distention of some loops of small bowel, without convincing evidence for obstruction. No significant bowel wall thickening is seen. No free fluid or free air is seen. ABDOMINAL WALL: No significant hernia is appreciated. LYMPH NODES: Normal. VASCULAR: Unremarkable. PELVIC VISCERA: Unremarkable. OSSEOUS STRUCTURES: Unremarkable. CT/CT abdomen pelvis w IV con IMPRESSION: 1. Status post colectomy with ileoanal pouch formation. Mild fluid distention of some loops of small bowel, without convincing evidence for obstruction. 2. Few tiny bilateral renal calculi without hydronephrosis. 3. Mild mural prominence of the urinary bladder which could be due to underdistention versus cystitis in the proper clinical setting.
[2024-02-08 01:03] VITALS: BP 103/67; PULSE 77; RESP 18; TEMP 36.6; O2SAT 99; BMI 28.5
[2024-02-08 01:20] LABS: MANUAL DIFF FLAG NO
[2024-02-08 01:21] LABS: Basophils Percent Auto 0.6 % (0-2); Eosinophils Absolute Auto 0.1 X10*3/uL (0.0-0.4); Eosinophils Percent Auto 1.4 % (0-4); Hematocrit 40.1 % (42.0-52.0); Hemoglobin 14.4 g/dl (14.0-18.0); Imm Gran Abs Auto 0.01 X10*3/uL (0.00-0.03); Imm Gran Pct Auto 0.1 % (0.0-0.4); Lymphocytes Absolute Auto 2.7 X10*3/uL (1.2-4.9); Lymphocytes Percent Auto 37.6 % (20-40); Mean Corpuscular HGB Conc 35.9 g/dl (31.0-36.0); Mean Corpuscular Hemoglobin 32.4 pg (27.0-33.0); Mean Corpuscular Volume 90.1 fL (80.0-98.0); Mean Platelet Volume 10.7 fL (9.4-12.4); Monocytes Absolute Auto 0.6 X10*3/uL (0.1-1.2); Monocytes Percent Auto 8.1 % (2-11); Neutrophils Absolute Auto 3.7 x10*3/uL (2.0-8.3); Neutrophils Percent Auto 52.2 % (45-73); Platelet Count 164 X10*3/uL (160-400); Red Blood Count 4.45 X10*6/uL (4.60-5.80); Red Cell Distribution Width 12.3 % (11.0-16.0); White Blood Count 7.2 X10*3/uL (4.8-10.8)
[2024-02-08 01:22] VITALS: BP 100/61; PULSE 752; RESP 16; TEMP 36.4; O2SAT 98
[2024-02-08 01:34] LABS: Alanine Aminotransferase 30 U/L (0-40); Albumin Level 4.1 g/dL (3.5-5.0); Alkaline Phosphatase 64 U/L (39-117); Anion Gap 13 (12-20); Aspartate Amino Transferase 25 U/L (5-37); Blood Urea Nitrogen 16 mg/dL (9-16); Calcium 9.6 mg/dL (8.4-10.2); Carbon Dioxide 25 mmol/L (22-29); Chloride 105 mmol/L (96-108); Creatinine Clr Calc Pharmacy 100.6; Estimated Glomerular Filt Rate > 60; Glucose Random 70 mg/dL (60-115); Potassium 3.9 mmol/L (3.3-5.1); Sodium 139 mmol/L (135-145); Total Protein 7.5 g/dL (6.5-8.0)
[2024-02-08 02:00] VITALS: BP 103/64; PULSE 54; RESP 18; O2SAT 99
--- NOTE | 2024-02-08 02:40 | ED.ABDPAIN ---
HPI - Abdominal Pain General Chief Complaint: Abdominal Pain Stated Complaint: Crohns Disease Time Seen by Provider: 02/08/24 01:35 History of Present Illness HPI narrative: Patient is a 43-year-old male presents today with having abdominal pain diffuse over the entire abdomen over the last 5 days associated with nausea, diarrhea. Patient from home. Has a history of being on Humira. Out of medication x3 weeks. Patient denies any fever chills. Normally gets follow in [facility]. No coughing or congestion. No chest pain or diaphoresis. Not on steroids. Has a history of allergies to Zofran and require Benadryl to be given with the Zofran. Patient denies any shortness of breath or diaphoresis with narcotics or with Zofran. He is from home. History of colon resection about 20 years ago. Related Data Home Medications ?Medication ?Instructions ?Recorded ?Confirmed adalimumab 40 mg/0.4 mL 40 mg subcut TH@0900 08/19/21 06/11/22 subcutaneous pen kit (Humira(CF) Pen) clonazepam 1 mg tablet 1 tab PO BID PRN Anxiety 08/19/21 06/11/22 loratadine 10 mg tablet 1 tab PO DAILY PRN Allergy Symptoms 08/19/21 06/11/22 omeprazole 20 mg capsule,delayed 2 cap PO DAILY@0630 08/19/21 06/11/22 release zolpidem 10 mg tablet 1 tab PO BEDTIME 08/19/21 06/11/22 hydrocortisone 1 % topical cream 1 appl topical BID PRN Itching 09/18/21 06/11/22 multivitamin with folic acid 400 1 tab PO DAILY 06/11/22 06/11/22 mcg tablet (Daily-Davis (with folic acid)) Previous Rx's ?Medication ?Instructions ?Recorded tizanidine 4 mg tablet 6 mg (1.5 x 4 mg) PO BEDTIME PRN 03/25/22 Muscle Spasm 30 days #135 tabs propranolol 10 mg tablet 10 mg PO BID 90 days #180 tabs 03/26/22 tramadol 50 mg tablet 50 mg PO BID PRN moderate pain 04/17/22 (scale score 5-6) #14 tabs sumatriptan succinate 100 mg tablet 50 - 100 mg (0.5 - 1 x 100 mg) PO 06/14/22 .COMPLEX PRN migraine headache 30 days #12 tabs magnesium oxide 400 mg (241.3 mg 400 mg PO BEDTIME 30 days #30 tabs 07/03/22 magnesium) tablet metronidazole 500 mg tablet 500 mg PO BID 7 days #14 tabs 07/14/22 oxycodone 5 mg tablet 5 mg PO Q8H PRN pain #5 tabs 07/14/22 promethazine 25 mg tablet 25 mg PO Q6H PRN nausea and 07/14/22 vomiting #10 tabs topiramate 25 mg tablet 25 - 50 mg (1 - 2 x 25 mg) PO 09/14/22 DAILY 30 days #60 tabs docusate sodium 100 mg capsule 100 mg PO BID PRN Constipation #14 09/28/22 (Colace) caps ondansetron HCl 4 mg tablet 4 mg PO Q8H #14 tabs 09/28/22 polyethylene glycol 3350 17 17 g PO DAILY #119 grams 09/28/22 gram/dose oral powder (Miralax) oxycodone 5 mg capsule 5 mg PO BID PRN severe pain #6 caps 11/02/22 prednisone 20 mg tablet 60 mg (3 x 20 mg) PO DAILY 5 days 01/31/23 #15 tabs hydrocortisone 100 mg/60 mL enema 100 mg (60 mL) ID DAILY 2 weeks 04/06/23 #840 mL dicyclomine 10 mg capsule 10 mg PO QID PRN abdominal pain 09/05/23 #15 caps promethazine 12.5 mg tablet 12.5 mg PO TID PRN nausea and 02/08/24 vomiting #10 tabs Allergies Allergy/AdvReac Type Severity Reaction Status Date / Time ondansetron [Ondansetron] Allergy Mild HIVES Verified 02/08/24 01:03 Sulfa (Sulfonamide Allergy Mild UNKNOWN Verified 02/08/24 01:03 Antibiotics) ketorolac Allergy Unknown Unknown Verified 02/08/24 01:03 meperidine [Demerol] Allergy Unknown Unknown Verified 02/08/24 01:03 metoclopramide [Reglan] Allergy Unknown Unknown Verified 02/08/24 01:03 morphine [Morphine] Allergy Unknown RASH Verified 02/08/24 01:03 haloperidol [From Haldol] Allergy Anaphylaxis Verified 02/08/24 01:03 ketamine Allergy Unknown Verified 02/08/24 01:03 From REGLAN Allergy Mild PT UNSURE Uncoded 02/08/24 01:03 BUT STATES HE IS ALLERGIC Compro Allergy Unknown Unknown Uncoded 02/08/24 01:03 From COMPAZINE Allergy Unknown ITCHING Uncoded 02/08/24 01:03 From Demerol Allergy Unknown ITCHY HIVES Uncoded 02/08/24 01:03 From Toradol Allergy Unknown UNK Uncoded 02/08/24 01:03 Review of Systems Review of Systems Positive abdominal pain Yes all other systems are reviewed and are negative PMFSH Past Medical History Attestation statement: The following information was validated with the patient. Medical History Cervicalgia Migraine Anxiety Crohn's disease IBD (inflammatory bowel disease) Partial small bowel obstruction Surgical History History of colostomy reversal S/P colostomy History of surgery on arm Hx of colonoscopy History of esophagogastroduodenoscopy (EGD) Family History Family History Mother HTN (hypertension) Social History Social History Household Members: Spouse Housing: House Do you presently have visiting nurse or other home services: No Alcohol intake: never Patient Tobacco Use Status: Never used Tobacco Smoked in Last 30 Days: No Use of substances other than those prescribed or required for medical reasons: No Advance Directives: No Advance Directives Information Provided: Yes service: No Current occupational status: disabled Physical Exam ED Vital Signs: Vital Signs - 24 hr 02/08/24 01:03 02/08/24 01:22 02/08/24 02:00 Temperature 97.8 F 97.6 F Pulse Rate 77 752 H 54 Respiratory Rate 18 16 18 Blood Pressure 103/67 100/61 103/64 Pulse Oximetry 99 98 99 Oxygen Delivery Method Room Air Room Air Room Air 02/08/24 04:00 Temperature 98.2 F Pulse Rate 55 Respiratory Rate 18 Blood Pressure 104/69 Pulse Oximetry 98 Oxygen Delivery Method Room Air BMI result Body Mass Index 28.5 Appearance: Alert. Oriented X3. No acute distress. Eyes: Pupils equal, round and reactive to light. ENT: Pharynx normal. Neck: Normal inspection. Neck supple. No lymph nodes noted. No crepitus CVS: Normal heart rate and rhythm. Pulses normal. Normal S1 and S2 Respiratory: No respiratory distress. Breath sounds normal. No Wheezing. No rales Abdomen: Soft and nontender. No rigidity. No distention. good BS x4 Skin: Skin warm and dry. Normal skin color. Normal skin turgor. Extremities: No lower extremity edema. Neurovascular intact to all extremities. No Lacerations. No Rash Neuro: Oriented X 3. No motor deficit. No sensory deficit. Moving all extermities. No slurred speech Medical Decision Making Medical Decision Making MDM Narrative: Patient is 43 years old with a history of Crohn's disease reported 5 day history of abdominal pain. Nausea vomiting diarrhea. Patient well-appearing. CT scan showed no evidence of obstruction no abscess no perforation. Urine was negative for infection. White count was normal. Hemoglobin 14 no signs of anemia. Patient's electrolytes showed normal BUN and creatinine normal LFTs. Patient to be discharged home close follow-up on an outpatient basis. Explained to patient the need to take Humira. Follow-up with GI doctor on an outpatient basis. Pain is controlled after medication. In stable condition. Differential Diagnosis Differential Diagnoses: The differential diagnosis associated with the presentation includes Obstruction, abscess, perforation, appendicitis Admission/Observation Consideration of admission/observation: Escalation of care including admission/observation considered Lab Data [facility] Lab Attestation statement: I reviewed the patient's lab results. 02/08/24 01:15 02/08/24 01:15 Labs: Lab Results 02/08/24 02/08/24 Range/Units 01:15 05:04 WBC 7.2 (4.8-10.8) X10*3/uL RBC 4.45 L (4.60-5.80) X10*6/uL Hgb 14.4 (14.0-18.0) g/dl Hct 40.1 L (42.0-52.0) % MCV 90.1 (80.0-98.0) fL MCH 32.4 (27.0-33.0) pg MCHC 35.9 (31.0-36.0) g/dl RDW 12.3 (11.0-16.0) % Plt Count 164 (160-400) X10*3/uL MPV 10.7 (9.4-12.4) fL Immature Gran % (Auto) 0.1 (0.0-0.4) % Neut % (Auto) 52.2 (45-73) % Lymph % (Auto) 37.6 (20-40) % [place] % (Auto) 8.1 (2-11) % Eos % (Auto) 1.4 (0-4) % Baso % (Auto) 0.6 (0-2) % Lymph # (Auto) 2.7 (1.2-4.9) X10*3/uL [place] # (Auto) 0.6 (0.1-1.2) X10*3/uL Eos # (Auto) 0.1 (0.0-0.4) X10*3/uL Baso # (Auto) 0.0 (0.0-0.2) X10*3/uL Abs Immat Gran (auto) 0.01 (0.00-0.03) X10*3/uL Absolute Neuts (auto) 3.7 (2.0-8.3) x10*3/uL Absolute Nucleated RBC 0.000 (0.0-0.012) X10*3/uL Nucleated RBC % (auto) 0.0 (0.0-0.2) /100WBC Sodium 139 (135-145) mmol/L Potassium 3.9 (3.3-5.1) mmol/L Chloride 105 (96-108) mmol/L Carbon Dioxide 25 (22-29) mmol/L Anion Gap 13 (12-20) BUN 16 (9-16) mg/dL Creatinine 0.83 (0.5-1.4) mg/dL Estim Creat Clear Calc 100.6 Estimated GFR > 60 Random Glucose 70 (60-115) mg/dL Calcium 9.6 (8.4-10.2) mg/dL Total Bilirubin 1.0 (0.0-1.0) mg/dL AST 25 (5-37) U/L ALT 30 (0-40) U/L Alkaline Phosphatase 64 (39-117) U/L Total Protein 7.5 (6.5-8.0) g/dL Albumin 4.1 (3.5-5.0) g/dL Urine Color Yellow Urine Appearance Clear Urine pH 5.5 (5.0-9.0) Ur Specific [place] >= 1.030 H (1.005-1.025) Urine Protein Negative (Neg-Trace) mg/dL Urine Glucose (UA) Negative (Negative) mg/dL Urine Ketones Negative (Negative) mg/dL Urine Blood Negative (Negative) Urine Nitrite Negative (Negative) Ur Leukocyte Esterase Negative (Negative) Urine RBC 0-2 (0-2) /HPF Urine WBC 0-5 (0-5) /HPF Ur Squamous Epith Cells 0-2 (0-2) /HPF Urine Bacteria None Seen (None Seen) Hyaline Casts 0-2 (0-2) /LPF Radiology Impression Discussion of test interpretation with radiology: I have reviewed the radiologist's reading. Independent Historian Clinical information obtained from an independent historian. History obtained from or confirmed by: Other (Family) External Record Review External record reviewed: Office record (Previous GI record reviewed) Chronic Conditions Crohn's disease, status post colon resection Social Determinants Patient?s care significantly limited by Social Determinants of Health including: Problems related to primary support group Medications Administered Discontinued Medications Generic Name Dose Route Start Last Admin Trade Name Mehdiq PRN Reason Stop Dose Admin Diphenhydramine HCl 50 mg 02/08/24 02:38 02/08/24 02:48 Diphenhydramine Hcl 50 Mg/Ml Vial IVPUSH 02/08/24 02:39 50 mg ONCE ONE Administration Hydromorphone HCl 1 mg 02/08/24 02:36 02/08/24 02:48 Hydromorphone Hcl 1 Mg/Ml Syringe IVPUSH 02/08/24 02:37 1 mg ONCE ONE Administration Protocol Hydromorphone HCl 0.5 mg 02/08/24 03:28 02/08/24 03:43 Hydromorphone Hcl 0.5 Mg/0.5 Ml Syringe IVPUSH 02/08/24 03:29 0.5 mg ONCE ONE Administration Protocol Hydromorphone HCl 0.5 mg 02/08/24 05:07 02/08/24 05:20 Hydromorphone Hcl 0.5 Mg/0.5 Ml Syringe IVPUSH 02/08/24 05:08 0.5 mg ONCE ONE Administration Protocol Sodium Chloride 1,000 mls @ 999 mls/hr 02/08/24 02:45 02/08/24 05:02 Ns IV 02/08/24 03:45 Infused .Q1H1M DULCE MARIA Infusion Iohexol 85 ml 02/08/24 03:15 02/08/24 03:15 Iohexol 350 Mg/Ml 100 Ml Infus..Btl IV 02/08/24 03:16 85 ml ONCE ONE Administration Ondansetron HCl 4 mg 02/08/24 02:36 02/08/24 02:48 Ondansetron Hcl 4 Mg/2 Ml Vial IVPUSH 02/08/24 02:37 4 mg ONCE ONE Administration Discharge Plan Discharge Clinical Impression: Crohn's disease Patient Disposition: Home, Self-Care Instructions: Crohn Disease (ED) Prescriptions: New promethazine 12.5 mg tablet 12.5 mg PO TID PRN (Reason: nausea and vomiting) Qty: 10 0RF Rx Instructions: 3 doses during day; last dose no later than 4 hr before bedtime No Action tizanidine 4 mg tablet 6 mg PO BEDTIME PRN (Reason: Muscle Spasm) 30 Days Qty: 135 3RF propranolol 10 mg tablet 10 mg PO BID 90 Days Qty: 180 1RF magnesium oxide 400 mg (241.3 mg magnesium) tablet 400 mg PO BEDTIME 30 Days Qty: 30 6RF Rx Instructions: may hold for loose stools topiramate 25 mg tablet 25 - 50 mg PO DAILY 30 Days Qty: 60 6RF hydrocortisone 1 % cream 1 appl topical BID PRN (Reason: Itching) tramadol 50 mg tablet 50 mg PO BID PRN (Reason: moderate pain (scale score 5-6)) Qty: 14 0RF promethazine 25 mg tablet 25 mg PO Q6H PRN (Reason: nausea and vomiting) Qty: 10 0RF metronidazole 500 mg tablet 500 mg PO BID 7 Days Qty: 14 0RF oxycodone 5 mg tablet 5 mg PO Q8H PRN (Reason: pain) Qty: 5 0RF Rx Instructions: Partial Fill upon patient request. docusate sodium [Colace] 100 mg capsule 100 mg PO BID PRN (Reason: Constipation) Qty: 14 0RF polyethylene glycol 3350 [Miralax] 17 gram/dose powder 17 g PO DAILY Qty: 119 0RF ondansetron HCl 4 mg tablet 4 mg PO Q8H Qty: 14 0RF clonazepam 1 mg tablet 1 tab PO BID PRN (Reason: Anxiety) omeprazole 20 mg capsule,delayed release(DR/EC) 2 cap PO DAILY@0630 zolpidem 10 mg tablet 1 tab PO BEDTIME loratadine 10 mg tablet 1 tab PO DAILY PRN (Reason: Allergy Symptoms) Humira(CF) Pen 40 mg/0.4 mL pen injector kit 40 mg subcut TH@0900 multivitamin with folic acid [Daily-Davis (with folic acid)] 400 mcg tablet 1 tab PO DAILY hydrocortisone 100 mg/60 mL enema 100 mg ID DAILY 14 Days Qty: 840 0RF dicyclomine 10 mg capsule 10 mg PO QID PRN (Reason: abdominal pain) Qty: 15 0RF oxycodone 5 mg capsule 5 mg PO BID PRN (Reason: severe pain) Qty: 6 0RF Rx Instructions: Partial Fill upon patient request. prednisone 20 mg tablet 60 mg PO DAILY 5 Days Qty: 15 0RF sumatriptan succinate 100 mg tablet 50 - 100 mg PO .COMPLEX PRN (Reason: migraine headache) 30 Days Qty: 12 6RF Rx Instructions: 50 - 100 mg orally at onset of headache, may repeat in 2 hrs PRN; max 2 tabs per day or 4 tabs/week (may take with Ibuprofen) Referrals: Kyle Espinosa MD [Physician] - 02/10/24 Print Language: Bangladeshi
[2024-02-08] MEDS: HYDROmorphone HCl 1 MG/ML SYRINGE IVPUSH (02:48)
[2024-02-08] MEDS: 0.9 % Sodium Chloride 1,000 ML 999 ML IV (02:48)
[2024-02-08] MEDS: ondansetron HCL 4 MG/2 ML VIAL IVPUSH (02:48)
[2024-02-08] MEDS: diphenhydrAMINE HCL 50 MG/ML VIAL IVPUSH (02:48)
[2024-02-08] MEDS: iohexoL 350 MG/ML 100 ML INFUS..BTL 85 ML IV (03:15)
[2024-02-08] MEDS: HYDROmorphone HCl 0.5 MG/0.5 ML SYRINGE IVPUSH ×2 (03:43→05:20)
[2024-02-08 04:00] VITALS: BP 104/69; PULSE 55; RESP 18; TEMP 36.8; O2SAT 98
[2024-02-08 05:11] LABS: Appearance Urine Clear; Color Urine Yellow; Glucose Urine UA Negative (Negative); Leukocyte Esterase Urine Negative (Negative); Nitrite Urine Negative (Negative); PH 5.5 (5.0-9.0); Specific Gravity - Urine >= 1.030 (1.005-1.025); Urine Blood Negative (Negative); Urine Ketones Negative (Negative); Urine Protein Negative (Neg-Trace)
[2024-02-08 05:16] LABS: Bacteria Urine None Seen (None Seen); Hyaline Casts Urine 0-2 /LPF (0-2); RBC Urine 0-2 /HPF (0-2); Squamous Epithelial Cell Urine 0-2 /HPF (0-2); WBC Urine 0-5 /HPF (0-5)
[2024-02-08 06:02] VITALS: BP 106/65; PULSE 60; RESP 16; TEMP 36.5; O2SAT 98
[2024-02-08 06:03] VITALS: BP 106/65; PULSE 60; RESP 16; TEMP 36.5; O2SAT 98
== END 2024-02-08 06:03 | disposition home or self-care (01) ==
PROVIDERS: Emergency Provider Emergency Medicine Emergency Medical Services
DX: K50.90 Crohn's disease, unspecified, without complications (principal); R10.2 Pelvic and perineal pain; R11.2 Nausea with vomiting, unspecified; Z79.899 Other long term (current) drug therapy
CPT/HCPCS: 36415; 74177; 80053; 81001; 85025; 96361; 96374; 96375; 96376; 99284; J1170; J1200; J2405; Q9967

== ENCOUNTER 2024-02-15 06:56 | Emergency (ER) | payer OTHER, SELFPAY ==
--- NOTE | ~2024-02-15 | CT_ITS ---
EXAMINATION: CT ABDOMEN AND PELVIS WITH CONTRAST CLINICAL INFORMATION: Abdominal pain with question of small bowel obstruction COMPARISON: Multiple prior CT scans of the abdomen and pelvis most recently 02/08/2024 TECHNIQUE: Multidetector volumetric images were obtained from the superior aspect of the liver through the pubic symphysis following administration 85 mL of Omnipaque 350 intravenous contrast. Sagittal and coronal reformatted images were obtained on the technologist's workstation. Oral contrast: No This CT examination was performed using dose optimization techniques as appropriate, variously including the following: *Automated exposure control *Adjustment of mA and/or kV according to patient size (this includes techniques or standardized protocols for targeted exams where dose is matched to indication/reason for exam; i.e. extremities or head) *Use of iterative reconstruction technique DLP: 452 mGy-cm FINDINGS: LUNG BASES: The visualized lung bases are unremarkable. LIVER, GALLBLADDER, AND BILIARY TREE: The liver is normal in size, shape, and attenuation. No focal hepatic lesion or biliary ductal dilatation is present. Status post cholecystectomy. PANCREAS: Unremarkable. SPLEEN: Unremarkable. ADRENAL GLANDS: Unremarkable. KIDNEYS AND URETERS: The kidneys are normal in size, shape, and attenuation. Bilateral punctate nonobstructing renal calculi are present. No hydronephrosis or hydroureter seen. No perinephric stranding. BLADDER: Unremarkable. GASTROINTESTINAL TRACT: Status post colectomy with ileoanal pouch. No evidence of bowel obstruction. ABDOMINAL WALL: Tiny periumbilical hernia seen containing only fat. Small bilateral inguinal hernias containing only fat. LYMPH NODES: No retroperitoneal lymphadenopathy. VASCULAR: Unremarkable. PELVIC VISCERA: The prostate and seminal vesicles are unremarkable. OSSEOUS STRUCTURES: Unremarkable. CT/CT abdomen pelvis w IV con IMPRESSION: 1. A cause for the patient's abdominal pain has not been found without evidence of bowel obstruction. 2. Status post colectomy with ileoanal pouch. 3. Bilateral nonobstructing renal calculi. 4. Cholecystectomy. Fleischner guidelines were followed.
[2024-02-15 07:07] VITALS: BP 126/69; PULSE 76; RESP 18; TEMP 36.6; O2SAT 96; BMI 24.8
--- NOTE | 2024-02-15 07:32 | ED_ITS ---
HPI - Abdominal Pain General Chief Complaint: Abdominal Pain Stated Complaint: Chrons flare Time Seen by Provider: 02/15/24 07:25 Source: patient Mode of arrival: ambulatory Limitations: no limitations History of Present Illness HPI narrative: This is a 43 years old male with history of Crohn disease presented to the emergency department complaining of abdominal pain nausea vomiting x2 days. He states that he has been unable to keep any medicine down. He denies any fever or chills he was seen in this emergency department on February 07. MD elicited complaint: abdominal pain Pertinent past history: other (Crohn's disease) Onset (ago): day(s) (2) Pain Consistency: constant Location: diffuse Severity: moderate Quality: cramping Radiation: none Migration to: no migration Exacerbating factors: nothing Relieving factors: nothing Related Data Home Medications ?Medication ?Instructions ?Recorded ?Confirmed adalimumab 40 mg/0.4 mL 40 mg subcut TH@0900 08/19/21 06/11/22 subcutaneous pen kit (Humira(CF) Pen) clonazepam 1 mg tablet 1 tab PO BID PRN Anxiety 08/19/21 06/11/22 loratadine 10 mg tablet 1 tab PO DAILY PRN Allergy Symptoms 08/19/21 06/11/22 omeprazole 20 mg capsule,delayed 2 cap PO DAILY@0630 08/19/21 06/11/22 release zolpidem 10 mg tablet 1 tab PO BEDTIME 08/19/21 06/11/22 hydrocortisone 1 % topical cream 1 appl topical BID PRN Itching 09/18/21 06/11/22 multivitamin with folic acid 400 1 tab PO DAILY 06/11/22 06/11/22 mcg tablet (Daily-Davis (with folic acid)) Previous Rx's ?Medication ?Instructions ?Recorded tizanidine 4 mg tablet 6 mg (1.5 x 4 mg) PO BEDTIME PRN 03/25/22 Muscle Spasm 30 days #135 tabs propranolol 10 mg tablet 10 mg PO BID 90 days #180 tabs 03/26/22 tramadol 50 mg tablet 50 mg PO BID PRN moderate pain 04/17/22 (scale score 5-6) #14 tabs sumatriptan succinate 100 mg tablet 50 - 100 mg (0.5 - 1 x 100 mg) PO 06/14/22 .COMPLEX PRN migraine headache 30 days #12 tabs magnesium oxide 400 mg (241.3 mg 400 mg PO BEDTIME 30 days #30 tabs 07/03/22 magnesium) tablet metronidazole 500 mg tablet 500 mg PO BID 7 days #14 tabs 07/14/22 oxycodone 5 mg tablet 5 mg PO Q8H PRN pain #5 tabs 07/14/22 promethazine 25 mg tablet 25 mg PO Q6H PRN nausea and 07/14/22 vomiting #10 tabs topiramate 25 mg tablet 25 - 50 mg (1 - 2 x 25 mg) PO 09/14/22 DAILY 30 days #60 tabs docusate sodium 100 mg capsule 100 mg PO BID PRN Constipation #14 09/28/22 (Colace) caps ondansetron HCl 4 mg tablet 4 mg PO Q8H #14 tabs 09/28/22 polyethylene glycol 3350 17 17 g PO DAILY #119 grams 09/28/22 gram/dose oral powder (Miralax) oxycodone 5 mg capsule 5 mg PO BID PRN severe pain #6 caps 11/02/22 prednisone 20 mg tablet 60 mg (3 x 20 mg) PO DAILY 5 days 01/31/23 #15 tabs hydrocortisone 100 mg/60 mL enema 100 mg (60 mL) MT DAILY 2 weeks 04/06/23 #840 mL dicyclomine 10 mg capsule 10 mg PO QID PRN abdominal pain 09/05/23 #15 caps promethazine 12.5 mg tablet 12.5 mg PO TID PRN nausea and 02/08/24 vomiting #10 tabs Allergies Allergy/AdvReac Type Severity Reaction Status Date / Time ondansetron [Ondansetron] Allergy Mild HIVES Verified 02/15/24 07:09 Sulfa (Sulfonamide Allergy Mild UNKNOWN Verified 02/15/24 07:09 Antibiotics) ketorolac Allergy Unknown Unknown Verified 02/15/24 07:09 meperidine [Demerol] Allergy Unknown Unknown Verified 02/15/24 07:09 metoclopramide [Reglan] Allergy Unknown Unknown Verified 02/15/24 07:09 morphine [Morphine] Allergy Unknown RASH Verified 02/15/24 07:09 haloperidol [From Haldol] Allergy Anaphylaxis Verified 02/15/24 07:09 ketamine Allergy Unknown Verified 02/15/24 07:09 From REGLAN Allergy Mild PT UNSURE Uncoded 02/15/24 07:09 BUT STATES HE IS ALLERGIC Compro Allergy Unknown Unknown Uncoded 02/15/24 07:09 From COMPAZINE Allergy Unknown ITCHING Uncoded 02/15/24 07:09 From Demerol Allergy Unknown ITCHY HIVES Uncoded 02/15/24 07:09 From Toradol Allergy Unknown UNK Uncoded 02/15/24 07:09 Review of Systems Constitutional: Reports no additional constitutional complaints Eyes: Reports no additional eye complaints Gastrointestinal: Reports as per [facility] Past Medical History Attestation statement: The following information was validated with the patient. Medical History Cervicalgia Migraine Anxiety Crohn's disease IBD (inflammatory bowel disease) Partial small bowel obstruction Surgical History History of colostomy reversal S/P colostomy History of surgery on arm Hx of colonoscopy History of esophagogastroduodenoscopy (EGD) Family History Family History Mother HTN (hypertension) Social History Social History Household Members: Spouse Housing: House Do you presently have visiting nurse or other home services: No Alcohol intake: never Patient Tobacco Use Status: Never used Tobacco Advance Directives: No Advance Directives Information Provided: No service: No Current occupational status: disabled Physical Exam ED Vital Signs: Vital Signs - 24 hr 02/15/24 07:07 02/15/24 10:00 02/15/24 12:30 Temperature 97.8 F 97.8 F 98.0 F Pulse Rate 76 73 70 Respiratory Rate 18 15 Blood Pressure 126/69 118/80 103/74 Pulse Oximetry 96 98 98 Oxygen Delivery Method Room Air Room Air Room Air 02/15/24 12:30 Temperature 98.0 F Pulse Rate 70 Respiratory Rate 15 Blood Pressure 103/74 Pulse Oximetry 98 Oxygen Delivery Method Room Air BMI result Body Mass Index 24.8 Const Other: Patient is in mild distress General: cooperative, alert and awake Nutritional Appearance: average body habitus Orientation/consciousness: patient oriented x3 Limitations: no limitations HENMT Head: Yes normal to inspection Eyes General: appearance normal, both eyes and all related structures Neck Neck: Yes normal visual inspection Resp Effort & Inspection: normal respiratory effort and able to speak in complete sentences Auscultation: clear to auscultation bilaterally Cardio Jugular venous distension: no JVD Rate: regular rate Rhythm: regular rhythm GI Inspection: Yes normal to inspection Palpation (GI): Tenderness to palpation present (GI) Skin General skin exam: no rashes or lesions noted and elasticity normal Neuro General: patient oriented x3 Cranial nerves: Yes CN's II-XII intact bilaterally Course Reevaluation(s) Reevaluation #1: CT not acute disease, labs within normal limits I think he can be discharged home, he has a hydrometeorological technician in [place] , I will give him also then name of the to a son local hydrometeorological technician Time: 12:01 Medical Decision Making Medical Decision Making [facility] Narrative: Patient presents to the emergency department with a chief complaint of abdominal pain, will obtain labs imaging administer fluid analgesia Differential Diagnosis Differential Diagnoses: The differential diagnosis associated with the presentation includes SBO/Crohn's flare Admission/Observation Consideration of admission/observation: Escalation of care including admission/observation considered Lab Data [facility] Lab Attestation statement: I reviewed the patient's lab results. 02/15/24 07:30 02/15/24 07:30 Labs: Lab Results 02/15/24 02/15/24 Range/Units 07:30 07:36 WBC 8.9 (4.8-10.8) X10*3/uL RBC 4.73 (4.60-5.80) X10*6/uL Hgb 15.2 (14.0-18.0) g/dl Hct 42.4 (42.0-52.0) % MCV 89.6 (80.0-98.0) fL MCH 32.1 (27.0-33.0) pg MCHC 35.8 (31.0-36.0) g/dl RDW 12.4 (11.0-16.0) % Plt Count 184 (160-400) X10*3/uL MPV 10.6 (9.4-12.4) fL Immature Gran % (Auto) 0.2 (0.0-0.4) % Neut % (Auto) 68.8 (45-73) % Lymph % (Auto) 22.4 (20-40) % Traill % (Auto) 7.4 (2-11) % Eos % (Auto) 1.0 (0-4) % Baso % (Auto) 0.2 (0-2) % Lymph # (Auto) 2.0 (1.2-4.9) X10*3/uL Traill # (Auto) 0.7 (0.1-1.2) X10*3/uL Eos # (Auto) 0.1 (0.0-0.4) X10*3/uL Baso # (Auto) 0.0 (0.0-0.2) X10*3/uL Abs Immat Gran (auto) 0.02 (0.00-0.03) X10*3/uL Absolute Neuts (auto) 6.1 (2.0-8.3) x10*3/uL Absolute Nucleated RBC 0.000 (0.0-0.012) X10*3/uL Nucleated RBC % (auto) 0.0 (0.0-0.2) /100WBC Sodium 140 (135-145) mmol/L Potassium 4.1 (3.3-5.1) mmol/L Chloride 106 (96-108) mmol/L Carbon Dioxide 25 (22-29) mmol/L Anion Gap 13 (12-20) BUN 13 (9-16) mg/dL Creatinine 0.76 (0.5-1.4) mg/dL Estim Creat Clear Calc 106.7 Estimated GFR > 60 Random Glucose 89 (60-115) mg/dL Lactic Acid 1.1 (0.5-2.0) mmol/L Calcium 10.0 (8.4-10.2) mg/dL Total Bilirubin 0.9 (0.0-1.0) mg/dL AST 33 (5-37) U/L ALT 48 H (0-40) U/L Alkaline Phosphatase 61 (39-117) U/L Total Protein 8.0 (6.5-8.0) g/dL Albumin 4.5 (3.5-5.0) g/dL Independent Interpretation I performed an independent interpretation of an: CT Scan Interpretation: nad Radiology Impression Discussion of test interpretation with radiology: I have reviewed the radiologist's reading. External Record Review External record reviewed: Other (ED record) Chronic Conditions Patient?s care impacted by: Other (chrohns disease) Medications Administered Discontinued Medications Generic Name Dose Route Start Last Admin Trade Name Freq PRN Reason Stop Dose Admin Diphenhydramine HCl 12.5 mg 02/15/24 07:31 02/15/24 07:47 Diphenhydramine Hcl 50 Mg/Ml Vial IVPUSH 02/15/24 07:32 12.5 mg ONCE ONE Administration Hydromorphone HCl 0.5 mg 02/15/24 07:31 02/15/24 07:41 Hydromorphone Hcl 0.5 Mg/0.5 Ml Syringe IVPUSH 02/15/24 07:32 0.5 mg ONCE ONE Administration Protocol Hydromorphone HCl 1 mg 02/15/24 08:35 02/15/24 08:39 Hydromorphone Hcl 1 Mg/Ml Syringe IVPUSH 02/15/24 08:36 1 mg ONCE ONE Administration Protocol Sodium Chloride 1,000 mls @ 999 mls/hr 02/15/24 07:30 02/15/24 08:45 Ns IVCONT 02/15/24 08:30 Infused .Q1H1M DULCE MARIA Infusion Iohexol 100 ml 02/15/24 09:05 02/15/24 09:05 Iohexol 350 Mg/Ml 100 Ml Infus..Btl IV 02/15/24 09:06 85 ml ONCE ONE Administration Ondansetron HCl 4 mg 02/15/24 07:31 02/15/24 07:40 Ondansetron Hcl 4 Mg/2 Ml Vial IVPUSH 02/15/24 07:32 4 mg ONCE ONE Administration Discharge Plan Discharge Clinical Impression: Abdominal pain Qualifiers: Abdominal location: generalized Qualified Code(s): R10.84 - Generalized abdominal pain Patient Disposition: Home, Self-Care Instructions: Abdominal Pain (ED) Additional Instructions: Please follow-up with your hydrometeorological technician or you can call a local hydrometeorological technician Dr Keene Prescriptions: No Action tizanidine 4 mg tablet 6 mg PO BEDTIME PRN (Reason: Muscle Spasm) 30 Days Qty: 135 3RF propranolol 10 mg tablet 10 mg PO BID 90 Days Qty: 180 1RF magnesium oxide 400 mg (241.3 mg magnesium) tablet 400 mg PO BEDTIME 30 Days Qty: 30 6RF Rx Instructions: may hold for loose stools topiramate 25 mg tablet 25 - 50 mg PO DAILY 30 Days Qty: 60 6RF hydrocortisone 1 % cream 1 appl topical BID PRN (Reason: Itching) tramadol 50 mg tablet 50 mg PO BID PRN (Reason: moderate pain (scale score 5-6)) Qty: 14 0RF promethazine 25 mg tablet 25 mg PO Q6H PRN (Reason: nausea and vomiting) Qty: 10 0RF metronidazole 500 mg tablet 500 mg PO BID 7 Days Qty: 14 0RF oxycodone 5 mg tablet 5 mg PO Q8H PRN (Reason: pain) Qty: 5 0RF Rx Instructions: Partial Fill upon patient request. docusate sodium [Colace] 100 mg capsule 100 mg PO BID PRN (Reason: Constipation) Qty: 14 0RF polyethylene glycol 3350 [Miralax] 17 gram/dose powder 17 g PO DAILY Qty: 119 0RF ondansetron HCl 4 mg tablet 4 mg PO Q8H Qty: 14 0RF clonazepam 1 mg tablet 1 tab PO BID PRN (Reason: Anxiety) omeprazole 20 mg capsule,delayed release(DR/EC) 2 cap PO DAILY@0630 zolpidem 10 mg tablet 1 tab PO BEDTIME loratadine 10 mg tablet 1 tab PO DAILY PRN (Reason: Allergy Symptoms) Humira(CF) Pen 40 mg/0.4 mL pen injector kit 40 mg subcut TH@0900 multivitamin with folic acid [Daily-Davis (with folic acid)] 400 mcg tablet 1 tab PO DAILY hydrocortisone 100 mg/60 mL enema 100 mg MT DAILY 14 Days Qty: 840 0RF dicyclomine 10 mg capsule 10 mg PO QID PRN (Reason: abdominal pain) Qty: 15 0RF promethazine 12.5 mg tablet 12.5 mg PO TID PRN (Reason: nausea and vomiting) Qty: 10 0RF Rx Instructions: 3 doses during day; last dose no later than 4 hr before bedtime oxycodone 5 mg capsule 5 mg PO BID PRN (Reason: severe pain) Qty: 6 0RF Rx Instructions: Partial Fill upon patient request. prednisone 20 mg tablet 60 mg PO DAILY 5 Days Qty: 15 0RF sumatriptan succinate 100 mg tablet 50 - 100 mg PO .COMPLEX PRN (Reason: migraine headache) 30 Days Qty: 12 6RF Rx Instructions: 50 - 100 mg orally at onset of headache, may repeat in 2 hrs PRN; max 2 tabs per day or 4 tabs/week (may take with Ibuprofen) Referrals: Kyle Espinosa MD [Physician] - 2 days Interventions: ED Discharge Assessment Last Done: 02/15/24 12:30 Discharge Date/Time: 02/15/24 12:31 Print Language: Malay
[2024-02-15 07:40] LABS: MANUAL DIFF FLAG NO
[2024-02-15] MEDS: 0.9 % Sodium Chloride 1,000 ML 999 ML IVCONT (07:40)
[2024-02-15] MEDS: ondansetron HCL 4 MG/2 ML VIAL IVPUSH (07:40)
[2024-02-15] MEDS: HYDROmorphone HCl 0.5 MG/0.5 ML SYRINGE IVPUSH (07:41)
[2024-02-15 07:42] LABS: Basophils Percent Auto 0.2 % (0-2); Eosinophils Absolute Auto 0.1 X10*3/uL (0.0-0.4); Hematocrit 42.4 % (42.0-52.0); Hemoglobin 15.2 g/dl (14.0-18.0); Imm Gran Abs Auto 0.02 X10*3/uL (0.00-0.03); Imm Gran Pct Auto 0.2 % (0.0-0.4); Lymphocytes Percent Auto 22.4 % (20-40); Mean Corpuscular HGB Conc 35.8 g/dl (31.0-36.0); Mean Corpuscular Hemoglobin 32.1 pg (27.0-33.0); Mean Corpuscular Volume 89.6 fL (80.0-98.0); Mean Platelet Volume 10.6 fL (9.4-12.4); Monocytes Absolute Auto 0.7 X10*3/uL (0.1-1.2); Monocytes Percent Auto 7.4 % (2-11); Neutrophils Absolute Auto 6.1 x10*3/uL (2.0-8.3); Neutrophils Percent Auto 68.8 % (45-73); Platelet Count 184 X10*3/uL (160-400); Red Blood Count 4.73 X10*6/uL (4.60-5.80); Red Cell Distribution Width 12.4 % (11.0-16.0); White Blood Count 8.9 X10*3/uL (4.8-10.8)
[2024-02-15] MEDS: diphenhydrAMINE HCL 50 MG/ML VIAL 12.5 MG IVPUSH (07:47)
[2024-02-15 07:53] LABS: Lactic Acid 1.1 mmol/L (0.5-2.0)
[2024-02-15 07:57] LABS: Alanine Aminotransferase 48 U/L (0-40); Albumin Level 4.5 g/dL (3.5-5.0); Alkaline Phosphatase 61 U/L (39-117); Anion Gap 13 (12-20); Aspartate Amino Transferase 33 U/L (5-37); Bilirubin Total 0.9 mg/dL (0.0-1.0); Blood Urea Nitrogen 13 mg/dL (9-16); Carbon Dioxide 25 mmol/L (22-29); Chloride 106 mmol/L (96-108); Creatinine Clr Calc Pharmacy 106.7; Estimated Glomerular Filt Rate > 60; Glucose Random 89 mg/dL (60-115); Potassium 4.1 mmol/L (3.3-5.1); Sodium 140 mmol/L (135-145)
[2024-02-15] MEDS: HYDROmorphone HCl 1 MG/ML SYRINGE IVPUSH (08:39)
[2024-02-15] MEDS: iohexoL 350 MG/ML 100 ML INFUS..BTL IV (09:05)
[2024-02-15 10:00] VITALS: BP 118/80; PULSE 73; TEMP 36.6; O2SAT 98
[2024-02-15 12:30] VITALS: BP 103/74; PULSE 70; RESP 15; TEMP 36.7; O2SAT 98
== END 2024-02-15 12:31 | disposition home or self-care (01) ==
PROVIDERS: Emergency Provider Emergency Medicine; PCP Student in an Organized Health Care Education/Training Program
DX: R10.84 Generalized abdominal pain (principal); R11.2 Nausea with vomiting, unspecified; K50.90 Crohn's disease, unspecified, without complications
CPT/HCPCS: 36415; 74177; 80053; 83605; 85025; 96361; 96374; 96375; 96376; 99284; 99285; J1170; J1200; J2405; Q9967

== ENCOUNTER 2024-04-28 18:46 | Emergency (ER) | payer OTHER, SELFPAY ==
--- NOTE | ~2024-04-28 | XR_ITS ---
EXAMINATION: XR ABDOMEN KUB CLINICAL INDICATION: Developing. Question obstruction. COMPARISON: CT abdomen/pelvis dated 02/15/2024. TECHNIQUE: AP upright and supine views of the abdomen. FINDINGS: Nonobstructive bowel gas pattern. Mild air and stool throughout the bowel. Right upper quadrant surgical clips as well as innumerable left abdominal surgical clips are redemonstrated. No abnormal soft tissue calcification. No acute osseous abnormality. No intra-abdominal free air. XR/XR KUB IMPRESSION: Nonobstructive bowel gas pattern. Mild air and stool throughout the bowel. Electronically signed by: Andrew Ortega MD 04/29/2024 12:27 AM EDT
[2024-04-28 18:54] VITALS: BP 104/68; PULSE 82; RESP 20; TEMP 36.8; O2SAT 94; BMI 25.5
[2024-04-28 19:18] LABS: MANUAL DIFF FLAG NO
--- NOTE | 2024-04-28 19:20 | MHC.EDTECH ---
Patient blood drawn and sent to lab .
[2024-04-28 19:22] LABS: Basophils Percent Auto 0.4 % (0-2); Eosinophils Absolute Auto 0.1 X10*3/uL (0.0-0.4); Hematocrit 43.1 % (42.0-52.0); Imm Gran Abs Auto 0.01 X10*3/uL (0.00-0.03); Imm Gran Pct Auto 0.1 % (0.0-0.4); Lymphocytes Absolute Auto 1.9 X10*3/uL (1.2-4.9); Lymphocytes Percent Auto 27.5 % (20-40); Mean Corpuscular HGB Conc 34.8 g/dl (31.0-36.0); Mean Corpuscular Hemoglobin 32.1 pg (27.0-33.0); Mean Corpuscular Volume 92.1 fL (80.0-98.0); Mean Platelet Volume 10.3 fL (9.4-12.4); Monocytes Absolute Auto 0.5 X10*3/uL (0.1-1.2); Monocytes Percent Auto 6.7 % (2-11); Neutrophils Absolute Auto 4.5 x10*3/uL (2.0-8.3); Neutrophils Percent Auto 64.3 % (45-73); Platelet Count 189 X10*3/uL (160-400); Red Blood Count 4.68 X10*6/uL (4.60-5.80); Red Cell Distribution Width 12.2 % (11.0-16.0)
[2024-04-28 19:32] LABS: Alanine Aminotransferase 30 U/L (0-40); Albumin Level 4.4 g/dL (3.5-5.0); Alkaline Phosphatase 58 U/L (39-117); Anion Gap 15 (12-20); Aspartate Amino Transferase 25 U/L (5-37); Bilirubin Direct 0.4 mg/dL (0.0-0.5); Bilirubin Total 1.3 mg/dL (0.0-1.0); Blood Urea Nitrogen 14 mg/dL (9-16); Calcium 9.6 mg/dL (8.4-10.2); Carbon Dioxide 30 mmol/L (22-29); Chloride 104 mmol/L (96-108); Creatinine Clr Calc Pharmacy 81.3; Estimated Glomerular Filt Rate > 60; Glucose Random 103 mg/dL (60-115); Lipase 31 U/L (8-78); Potassium 4.6 mmol/L (3.3-5.1); Sodium 144 mmol/L (135-145); Total Protein 7.8 g/dL (6.5-8.0)
[2024-04-28 20:58] VITALS: BP 112/74; PULSE 77; RESP 18; TEMP 36.7; O2SAT 97
[2024-04-28 21:59] VITALS: BP 117/74; PULSE 73; RESP 16; TEMP 36.8; O2SAT 97
--- NOTE | 2024-04-28 21:59 | ED_ITS ---
HPI - Abdominal Pain General Chief Complaint: Abdominal Pain Stated Complaint: abd pain, vomiting h/o crohns Time Seen by Provider: 04/28/24 21:41 Source: patient Mode of arrival: ambulatory Limitations: no limitations History of Present Illness ED Provider: Dr. Nolasco HPI narrative: Patient is a 43yo male with history of Chrohn's disease, partial colectomy, ileal pouch who has presented mulitiple times with multiple CT scans also with every visit. Last Ct in February showed no disease. No recent visits with Dr. Espinosa since 2021. Related Data Home Medications ?Medication ?Instructions ?Recorded ?Confirmed adalimumab 40 mg/0.4 mL 40 mg subcut TH@0900 08/19/21 06/11/22 subcutaneous pen kit (Humira(CF) Pen) clonazepam 1 mg tablet 1 tab PO BID PRN Anxiety 08/19/21 06/11/22 loratadine 10 mg tablet 1 tab PO DAILY PRN Allergy Symptoms 08/19/21 06/11/22 omeprazole 20 mg capsule,delayed 2 cap PO DAILY@0630 08/19/21 06/11/22 release zolpidem 10 mg tablet 1 tab PO BEDTIME 08/19/21 06/11/22 hydrocortisone 1 % topical cream 1 appl topical BID PRN Itching 09/18/21 06/11/22 multivitamin with folic acid 400 1 tab PO DAILY 06/11/22 06/11/22 mcg tablet (Daily-Davis (with folic acid)) Previous Rx's ?Medication ?Instructions ?Recorded tizanidine 4 mg tablet 6 mg (1.5 x 4 mg) PO BEDTIME PRN 03/25/22 Muscle Spasm 30 days #135 tabs propranolol 10 mg tablet 10 mg PO BID 90 days #180 tabs 03/26/22 tramadol 50 mg tablet 50 mg PO BID PRN moderate pain 04/17/22 (scale score 5-6) #14 tabs sumatriptan succinate 100 mg tablet 50 - 100 mg (0.5 - 1 x 100 mg) PO 06/14/22 .COMPLEX PRN migraine headache 30 days #12 tabs magnesium oxide 400 mg (241.3 mg 400 mg PO BEDTIME 30 days #30 tabs 07/03/22 magnesium) tablet metronidazole 500 mg tablet 500 mg PO BID 7 days #14 tabs 07/14/22 oxycodone 5 mg tablet 5 mg PO Q8H PRN pain #5 tabs 07/14/22 promethazine 25 mg tablet 25 mg PO Q6H PRN nausea and 07/14/22 vomiting #10 tabs topiramate 25 mg tablet 25 - 50 mg (1 - 2 x 25 mg) PO 09/14/22 DAILY 30 days #60 tabs docusate sodium 100 mg capsule 100 mg PO BID PRN Constipation #14 09/28/22 (Colace) caps ondansetron HCl 4 mg tablet 4 mg PO Q8H #14 tabs 09/28/22 polyethylene glycol 3350 17 17 g PO DAILY #119 grams 09/28/22 gram/dose oral powder (Miralax) oxycodone 5 mg capsule 5 mg PO BID PRN severe pain #6 caps 11/02/22 prednisone 20 mg tablet 60 mg (3 x 20 mg) PO DAILY 5 days 01/31/23 #15 tabs hydrocortisone 100 mg/60 mL enema 100 mg (60 mL) NC DAILY 2 weeks 04/06/23 #840 mL dicyclomine 10 mg capsule 10 mg PO QID PRN abdominal pain 09/05/23 #15 caps promethazine 12.5 mg tablet 12.5 mg PO TID PRN nausea and 02/08/24 vomiting #10 tabs dicyclomine 10 mg capsule 10 mg PO QID PRN abdominal pain 04/29/24 #20 caps promethazine 25 mg tablet 25 mg PO Q6H PRN nausea and 04/29/24 vomiting #20 tabs Allergies Allergy/AdvReac Type Severity Reaction Status Date / Time ondansetron [Ondansetron] Allergy Mild HIVES Verified 04/28/24 18:55 Sulfa (Sulfonamide Allergy Mild UNKNOWN Verified 04/28/24 18:55 Antibiotics) ketorolac Allergy Unknown Unknown Verified 04/28/24 18:55 meperidine [Demerol] Allergy Unknown Unknown Verified 04/28/24 18:55 metoclopramide [Reglan] Allergy Unknown Unknown Verified 04/28/24 18:55 morphine [Morphine] Allergy Unknown RASH Verified 04/28/24 18:55 haloperidol [From Haldol] Allergy Anaphylaxis Verified 04/28/24 18:55 ketamine Allergy Unknown Verified 04/28/24 18:55 From REGLAN Allergy Mild PT UNSURE Uncoded 02/15/24 07:09 BUT STATES HE IS ALLERGIC Compro Allergy Unknown Unknown Uncoded 02/15/24 07:09 From COMPAZINE Allergy Unknown ITCHING Uncoded 02/15/24 07:09 From Demerol Allergy Unknown ITCHY HIVES Uncoded 02/15/24 07:09 From Toradol Allergy Unknown UNK Uncoded 02/15/24 07:09 Review of Systems Review of Systems Yes all other systems are reviewed and are negative Denies Sensory deficit (Neuro) PMFSH Past Medical History Medical History Cervicalgia Migraine Anxiety Crohn's disease IBD (inflammatory bowel disease) Partial small bowel obstruction Surgical History History of colostomy reversal S/P colostomy History of surgery on arm Hx of colonoscopy History of esophagogastroduodenoscopy (EGD) Family History Family History Mother HTN (hypertension) Social History Social History Household Members: Spouse Housing: House Do you presently have visiting nurse or other home services: No Alcohol intake: never Patient Tobacco Use Status: Never used Tobacco Smoked in Last 30 Days: No Use of substances other than those prescribed or required for medical reasons: No Advance Directives: No Advance Directives Information Provided: Yes Do you have a plan to hurt others: No Plan service: No Current occupational status: disabled Physical Exam ED Vital Signs: Vital Signs - 24 hr 04/28/24 18:54 04/28/24 20:58 04/28/24 21:59 Temperature 98.3 F 98.0 F 98.3 F Pulse Rate 82 77 73 Respiratory Rate 20 18 16 Blood Pressure 104/68 112/74 117/74 Pulse Oximetry 94 97 97 Oxygen Delivery Method Room Air Room Air Room Air 04/28/24 23:06 04/29/24 00:00 Temperature 97.6 F Pulse Rate 62 Respiratory Rate 18 16 Blood Pressure 100/68 Pulse Oximetry 96 Oxygen Delivery Method Room Air BMI result Body Mass Index 25.5 Const Other: vomiting, anxious Nutritional Appearance: average body habitus Orientation/consciousness: oriented to person and patient oriented x3 Limitations: no limitations HENMT Head: Yes normal to inspection Ears: external ears normal General nose exam: Normal external nose present Mouth: Normal oral and palatal mucosa present and oropharynx normal Throat: Yes posterior oropharynx normal Eyes General: appearance normal, both eyes and all related structures Neck Neck: Yes normal visual inspection Chest Chest palpation & inspection: normal inspection of the chest Resp Auscultation: clear to auscultation bilaterally Cardio Jugular venous distension: no JVD Rate: regular rate Rhythm: regular rhythm Heart sounds: S1 normal heart sound present and S2 normal heart sound present GI Other: tender abdomen with some distention General: Yes no CVA tenderness Back/Spine/Pelvis Back: no CVA tenderness Skin General skin exam: no rashes or lesions noted Neuro General: oriented to person and patient oriented x3 Cranial nerves: Yes CN's II-XII intact bilaterally Motor exam (neuro): 5/5 motor strength present throughout Sensory Exam: No Sensory deficit (Neuro) Extrem General: Yes normal to inspection Psych Appearance: grossly normal Course Reevaluation(s) Reevaluation #1: normal labs, KUB no bowel obstruction will dc home phenergan and bentyl with follow up with pmd Time: 00:38 Medical Decision Making Differential Diagnosis Differential Diagnoses: The differential diagnosis associated with the presentation includes (bowel obstruction, perforation, chrohn's flair) Admission/Observation Consideration of admission/observation: Escalation of care including admission/observation considered (upon arrival patient was considered for admission) Lab Data 04/28/24 19:14 04/28/24 19:14 Labs: Lab Results 04/28/24 Range/Units 19:14 WBC 7.0 (4.8-10.8) X10*3/uL RBC 4.68 (4.60-5.80) X10*6/uL Hgb 15.0 (14.0-18.0) g/dl Hct 43.1 (42.0-52.0) % MCV 92.1 (80.0-98.0) fL MCH 32.1 (27.0-33.0) pg MCHC 34.8 (31.0-36.0) g/dl RDW 12.2 (11.0-16.0) % Plt Count 189 (160-400) X10*3/uL MPV 10.3 (9.4-12.4) fL Immature Gran % (Auto) 0.1 (0.0-0.4) % Neut % (Auto) 64.3 (45-73) % Lymph % (Auto) 27.5 (20-40) % [place] % (Auto) 6.7 (2-11) % Eos % (Auto) 1.0 (0-4) % Baso % (Auto) 0.4 (0-2) % Lymph # (Auto) 1.9 (1.2-4.9) X10*3/uL [place] # (Auto) 0.5 (0.1-1.2) X10*3/uL Eos # (Auto) 0.1 (0.0-0.4) X10*3/uL Baso # (Auto) 0.0 (0.0-0.2) X10*3/uL Abs Immat Gran (auto) 0.01 (0.00-0.03) X10*3/uL Absolute Neuts (auto) 4.5 (2.0-8.3) x10*3/uL Absolute Nucleated RBC 0.000 (0.0-0.012) X10*3/uL Nucleated RBC % (auto) 0.0 (0.0-0.2) /100WBC Sodium 144 (135-145) mmol/L Potassium 4.6 (3.3-5.1) mmol/L Chloride 104 (96-108) mmol/L Carbon Dioxide 30 H (22-29) mmol/L Anion Gap 15 (12-20) BUN 14 (9-16) mg/dL Creatinine 0.96 (0.5-1.4) mg/dL Estim Creat Clear Calc 81.3 Estimated GFR > 60 Random Glucose 103 (60-115) mg/dL Calcium 9.6 (8.4-10.2) mg/dL Total Bilirubin 1.3 H (0.0-1.0) mg/dL Direct Bilirubin 0.4 (0.0-0.5) mg/dL AST 25 (5-37) U/L ALT 30 (0-40) U/L Alkaline Phosphatase 58 (39-117) U/L Total Protein 7.8 (6.5-8.0) g/dL Albumin 4.4 (3.5-5.0) g/dL Lipase 31 (8-78) U/L Independent Interpretation I performed an independent interpretation of an: Plain X-Ray (kub: no bowel obstruction) External Record Review External record reviewed: Outpatient record and Prior outpatient radiology Tests considered The following testing was considered but not selected: CT of abdomen considered but patient with no bowel obstruction, has had CT every time he visits the ED which has been bimonthly for the past few months Prescription Management I considered prescription management with: Antibiotic (no infection seen) Chronic Conditions Patient?s care impacted by: Other (Crohn's disease) Medications Administered Discontinued Medications Generic Name Dose Route Start Last Admin Trade Name Freq PRN Reason Stop Dose Admin Diphenhydramine HCl 25 mg 04/28/24 22:14 04/28/24 23:07 Diphenhydramine Hcl 50 Mg/Ml Vial IVPUSH 04/28/24 22:15 25 mg ONCE ONE Administration Hydromorphone HCl 1 mg 04/28/24 22:14 04/28/24 23:06 Hydromorphone Hcl 1 Mg/Ml Syringe IVPUSH 04/28/24 22:15 1 mg ONCE ONE Administration Protocol Sodium Chloride 1,000 mls @ 999 mls/hr 04/28/24 22:15 04/29/24 00:14 Ns IV 04/28/24 23:15 Infused .Q1H1M DULCE MARIA Infusion Metoclopramide HCl 10 mg 04/28/24 22:14 04/28/24 23:06 Metoclopramide Hcl 10 Mg/2 Ml Vial IVPUSH 04/28/24 22:15 10 mg ONCE ONE Administration Discharge Plan Discharge Clinical Impression: Crohn's disease, Abdominal pain, Vomiting Patient Disposition: Home, Self-Care Instructions: Crohn Disease (ED), Acute Nausea and Vomiting (ED), Abdominal Pain (ED) Prescriptions: New promethazine 25 mg tablet 25 mg PO Q6H PRN (Reason: nausea and vomiting) Qty: 20 0RF dicyclomine 10 mg capsule 10 mg PO QID PRN (Reason: abdominal pain) Qty: 20 0RF No Action tizanidine 4 mg tablet 6 mg PO BEDTIME PRN (Reason: Muscle Spasm) 30 Days Qty: 135 3RF propranolol 10 mg tablet 10 mg PO BID 90 Days Qty: 180 1RF magnesium oxide 400 mg (241.3 mg magnesium) tablet 400 mg PO BEDTIME 30 Days Qty: 30 6RF Rx Instructions: may hold for loose stools topiramate 25 mg tablet 25 - 50 mg PO DAILY 30 Days Qty: 60 6RF hydrocortisone 1 % cream 1 appl topical BID PRN (Reason: Itching) tramadol 50 mg tablet 50 mg PO BID PRN (Reason: moderate pain (scale score 5-6)) Qty: 14 0RF promethazine 25 mg tablet 25 mg PO Q6H PRN (Reason: nausea and vomiting) Qty: 10 0RF metronidazole 500 mg tablet 500 mg PO BID 7 Days Qty: 14 0RF oxycodone 5 mg tablet 5 mg PO Q8H PRN (Reason: pain) Qty: 5 0RF Rx Instructions: Partial Fill upon patient request. docusate sodium [Colace] 100 mg capsule 100 mg PO BID PRN (Reason: Constipation) Qty: 14 0RF polyethylene glycol 3350 [Miralax] 17 gram/dose powder 17 g PO DAILY Qty: 119 0RF ondansetron HCl 4 mg tablet 4 mg PO Q8H Qty: 14 0RF clonazepam 1 mg tablet 1 tab PO BID PRN (Reason: Anxiety) omeprazole 20 mg capsule,delayed release(DR/EC) 2 cap PO DAILY@0630 zolpidem 10 mg tablet 1 tab PO BEDTIME loratadine 10 mg tablet 1 tab PO DAILY PRN (Reason: Allergy Symptoms) Humira(CF) Pen 40 mg/0.4 mL pen injector kit 40 mg subcut TH@0900 multivitamin with folic acid [Daily-Davis (with folic acid)] 400 mcg tablet 1 tab PO DAILY hydrocortisone 100 mg/60 mL enema 100 mg NC DAILY 14 Days Qty: 840 0RF dicyclomine 10 mg capsule 10 mg PO QID PRN (Reason: abdominal pain) Qty: 15 0RF promethazine 12.5 mg tablet 12.5 mg PO TID PRN (Reason: nausea and vomiting) Qty: 10 0RF Rx Instructions: 3 doses during day; last dose no later than 4 hr before bedtime oxycodone 5 mg capsule 5 mg PO BID PRN (Reason: severe pain) Qty: 6 0RF Rx Instructions: Partial Fill upon patient request. prednisone 20 mg tablet 60 mg PO DAILY 5 Days Qty: 15 0RF sumatriptan succinate 100 mg tablet 50 - 100 mg PO .COMPLEX PRN (Reason: migraine headache) 30 Days Qty: 12 6RF Rx Instructions: 50 - 100 mg orally at onset of headache, may repeat in 2 hrs PRN; max 2 tabs per day or 4 tabs/week (may take with Ibuprofen) Referrals: [place],[facility] [Primary Care Provider] - 5 days Print Language: Iranian
[2024-04-28] MEDS: 0.9 % Sodium Chloride 1,000 ML 999 ML IV (22:59)
[2024-04-28 23:06] VITALS: RESP 18
[2024-04-28] MEDS: Metoclopramide HCl 10 MG/2 ML VIAL IVPUSH (23:06)
[2024-04-28] MEDS: HYDROmorphone HCl 1 MG/ML SYRINGE IVPUSH (23:06)
[2024-04-28] MEDS: diphenhydrAMINE HCL 50 MG/ML VIAL 25 MG IVPUSH (23:07)
--- NOTE | 2024-04-28 23:16 | PC.NURSE ---
pt medicated per SEP, reports known allergy to metoclopramide - localized reaction to site of IV administration, pt confirmed that he is able to tolerate medication w benadryl. pt premedicated w benadryl prior to administration. small area surrounding IV site w increased redness post administration - pt endorsed that this is typical and will alert RN if this changes.
[2024-04-29] VITALS: BP 100/68; PULSE 62; RESP 16; TEMP 36.4; O2SAT 96
--- NOTE | 2024-04-29 00:52 | PC.NURSE ---
reviewed discharge instructions with pt. pt verbalized understanding, no sign of distress. pt ambulated with a steady gait.
[2024-04-29 00:53] VITALS: BP 100/68; PULSE 62; RESP 16; TEMP 36.4; O2SAT 96
== END 2024-04-29 00:54 | disposition home or self-care (01) ==
PROVIDERS: Emergency Provider Emergency Medicine
DX: K50.90 Crohn's disease, unspecified, without complications (principal); R11.10 Vomiting, unspecified; R10.9 Unspecified abdominal pain; Z90.49 Acquired absence of other specified parts of digestive tract
CPT/HCPCS: 36415; 74018; 80053; 82248; 83690; 85025; 96361; 96374; 96375; 99284; J1171; J1200; J2765

== ENCOUNTER 2024-05-19 08:18 | Emergency (ER) | payer OTHER, SELFPAY ==
--- NOTE | ~2024-05-19 | CT_ITS ---
EXAMINATION: CT ABDOMEN AND PELVIS WITH CONTRAST CLINICAL INFORMATION: Abdominal pain. History of prominence disease. COMPARISON: CT dated February 15, 2024. TECHNIQUE: Multidetector volumetric images were obtained from the superior aspect of the liver through the pubic symphysis following administration 85 mL of Omnipaque 350 intravenous contrast without reported immediate complications. Sagittal and coronal reformatted images were obtained on the technologist's workstation. Oral contrast: No This CT examination was performed using dose optimization techniques as appropriate, variously including the following: *Automated exposure control *Adjustment of mA and/or kV according to patient size (this includes techniques or standardized protocols for targeted exams where dose is matched to indication/reason for exam; i.e. extremities or head) *Use of iterative reconstruction technique DLP: 429 mGy-cm2 FINDINGS: LUNG BASES: No acute airspace disease or gross pulmonary nodules in the included lungs. LIVER, GALLBLADDER, AND BILIARY TREE: Liver measures 15 cm. No mass. Portal veins and hepatic veins are patent. Intrahepatic portion of the IVC is patent. Cholecystectomy likely laparoscopic. Common bile duct measures 7 mm. PANCREAS: No focal pancreatic mass. No main pancreatic ductal dilatation. No peripancreatic fluid collections. SPLEEN: Measures 11 cm. No focal mass. ADRENAL GLANDS: No nodular lesions. KIDNEYS AND URETERS: 2 mm nonobstructing calculi, scattered in both pelvicalyceal systems. No hydronephrosis in either kidney. Subcentimeter cystic lesions. No gross renal mass. Normal enhancement of the renal parenchyma. BLADDER: Collapsed. GASTROINTESTINAL TRACT: Sutures in the distal small bowel loops and rectosigmoid colon. Absent large intestine. Gas and fluid-filled mildly prominent distal ileal loops. No intestinal obstruction pattern. No ascites. No pneumoperitoneum. No pneumatosis intestinalis. ABDOMINAL WALL: Small fat-containing umbilical hernia. Small fat-containing right inguinal hernia. LYMPH NODES: No gross lymphadenopathy, mesenteric or retroperitoneal. VASCULAR: No aneurysm or dissection, abdominal aorta. PELVIC VISCERA: Prostate gland is not enlarged. OSSEOUS STRUCTURES: No acute fracture or listhesis in the axial skeleton. No lytic or blastic lesions. [place] seen in the coxofemoral joints/hips. CT/CT abdomen pelvis w IV con IMPRESSION: Status post total colectomy. No intestinal obstruction pattern or peritoneal abscess. Fleischner guidelines were followed. Electronically signed by: Nathen Cross MD 05/19/2024 10:40 AM EST
[2024-05-19 08:21] VITALS: BP 106/58; PULSE 75; RESP 18; TEMP 36.4; O2SAT 99; BMI 25.8
--- NOTE | 2024-05-19 08:37 | ED_ITS ---
HPI - General Adult General Chief complaint: Abdominal Pain Stated complaint: flare up Time Seen by Provider: 05/19/24 08:37 Source: patient Mode of arrival: ambulatory Limitations: no limitations History of Present Illness ED Provider: cammie HPI narrative: Patient is a 43-year-old male with history of Crohn's disease, recent colonoscopy in [place] 2 weeks ago, presenting to the ED with complaint of abdominal pain, bloating, vomiting and diarrhea for the past 3 days. Denies fevers. States has not been able to keep down his oxycodone for pain due to vomiting. Denies hematemesis, hematochezia, melena. Denies urinary symptoms. MD complaint: abdominal pain Onset (ago): day(s) Location: abdomen Radiation: non-radiation Severity: severe and similar to prior episodes Quality: aching Pain Consistency: constant Associated symptoms: nausea/vomiting Related Data Home Medications ?Medication ?Instructions ?Recorded ?Confirmed adalimumab 40 mg/0.4 mL 40 mg subcut TH@0900 08/19/21 06/11/22 subcutaneous pen kit (Humira(CF) Pen) clonazepam 1 mg tablet 1 tab PO BID PRN Anxiety 08/19/21 06/11/22 loratadine 10 mg tablet 1 tab PO DAILY PRN Allergy Symptoms 08/19/21 06/11/22 omeprazole 20 mg capsule,delayed 2 cap PO DAILY@0630 08/19/21 06/11/22 release zolpidem 10 mg tablet 1 tab PO BEDTIME 08/19/21 06/11/22 hydrocortisone 1 % topical cream 1 appl topical BID PRN Itching 09/18/21 06/11/22 multivitamin with folic acid 400 1 tab PO DAILY 06/11/22 06/11/22 mcg tablet (Daily-Davis (with folic acid)) Previous Rx's ?Medication ?Instructions ?Recorded tizanidine 4 mg tablet 6 mg (1.5 x 4 mg) PO BEDTIME PRN 03/25/22 Muscle Spasm 30 days #135 tabs propranolol 10 mg tablet 10 mg PO BID 90 days #180 tabs 03/26/22 tramadol 50 mg tablet 50 mg PO BID PRN moderate pain 04/17/22 (scale score 5-6) #14 tabs sumatriptan succinate 100 mg tablet 50 - 100 mg (0.5 - 1 x 100 mg) PO 06/14/22 .COMPLEX PRN migraine headache 30 days #12 tabs magnesium oxide 400 mg (241.3 mg 400 mg PO BEDTIME 30 days #30 tabs 07/03/22 magnesium) tablet metronidazole 500 mg tablet 500 mg PO BID 7 days #14 tabs 07/14/22 oxycodone 5 mg tablet 5 mg PO Q8H PRN pain #5 tabs 07/14/22 promethazine 25 mg tablet 25 mg PO Q6H PRN nausea and 07/14/22 vomiting #10 tabs topiramate 25 mg tablet 25 - 50 mg (1 - 2 x 25 mg) PO 09/14/22 DAILY 30 days #60 tabs docusate sodium 100 mg capsule 100 mg PO BID PRN Constipation #14 09/28/22 (Colace) caps ondansetron HCl 4 mg tablet 4 mg PO Q8H #14 tabs 09/28/22 polyethylene glycol 3350 17 17 g PO DAILY #119 grams 09/28/22 gram/dose oral powder (Miralax) oxycodone 5 mg capsule 5 mg PO BID PRN severe pain #6 caps 11/02/22 prednisone 20 mg tablet 60 mg (3 x 20 mg) PO DAILY 5 days 01/31/23 #15 tabs hydrocortisone 100 mg/60 mL enema 100 mg (60 mL) OR DAILY 2 weeks 04/06/23 #840 mL dicyclomine 10 mg capsule 10 mg PO QID PRN abdominal pain 09/05/23 #15 caps promethazine 12.5 mg tablet 12.5 mg PO TID PRN nausea and 02/08/24 vomiting #10 tabs dicyclomine 10 mg capsule 10 mg PO QID PRN abdominal pain 04/29/24 #20 caps promethazine 25 mg tablet 25 mg PO Q6H PRN nausea and 04/29/24 vomiting #20 tabs Allergies Allergy/AdvReac Type Severity Reaction Status Date / Time ondansetron [Ondansetron] Allergy Mild HIVES Verified 05/19/24 08:22 Sulfa (Sulfonamide Allergy Mild UNKNOWN Verified 05/19/24 08:22 Antibiotics) ketorolac Allergy Unknown Unknown Verified 05/19/24 08:22 meperidine [Demerol] Allergy Unknown Unknown Verified 05/19/24 08:22 metoclopramide [Reglan] Allergy Unknown Unknown Verified 05/19/24 08:22 morphine [Morphine] Allergy Unknown RASH Verified 05/19/24 08:22 haloperidol [From Haldol] Allergy Anaphylaxis Verified 05/19/24 08:22 ketamine Allergy Unknown Verified 05/19/24 08:22 From REGLAN Allergy Mild PT UNSURE Uncoded 02/15/24 07:09 BUT STATES HE IS ALLERGIC Compro Allergy Unknown Unknown Uncoded 02/15/24 07:09 From COMPAZINE Allergy Unknown ITCHING Uncoded 02/15/24 07:09 From Demerol Allergy Unknown ITCHY HIVES Uncoded 02/15/24 07:09 From Toradol Allergy Unknown UNK Uncoded 02/15/24 07:09 Review of Systems 2 Review of Systems: As per HPI Yes all other systems are reviewed and are negative Constitutional: Constitutional: Reports as per HPI PMFSH Past Medical History Medical History Cervicalgia Migraine Anxiety Crohn's disease IBD (inflammatory bowel disease) Partial small bowel obstruction Surgical History History of colostomy reversal S/P colostomy History of surgery on arm Hx of colonoscopy History of esophagogastroduodenoscopy (EGD) Family History Family History Mother HTN (hypertension) Social History Social History Household Members: Spouse Housing: House Do you presently have visiting nurse or other home services: No Alcohol intake: never Patient Tobacco Use Status: Never used Tobacco Smoked in Last 30 Days: No Use of substances other than those prescribed or required for medical reasons: No Advance Directives: No Advance Directives Information Provided: No Do you have a plan to hurt others: No Plan service: No Current occupational status: disabled Physical Exam ED Vital Signs: Vital Signs - 24 hr 05/19/24 08:21 05/19/24 09:50 05/19/24 09:55 Temperature 97.5 F 97.8 F Pulse Rate 75 75 Respiratory Rate 18 20 20 Blood Pressure 106/58 L 102/71 Pulse Oximetry 99 96 Oxygen Delivery Method Room Air Room Air 05/19/24 11:22 Temperature Pulse Rate Respiratory Rate 18 Blood Pressure Pulse Oximetry Oxygen Delivery Method BMI result Body Mass Index 25.8 Vital signs have been reviewed and appear to be correct. Blood pressure normal. Heart rate normal. Respiratory rate normal. Temperature normal. Oxygen saturation normal. Const General: cooperative, healthy appearing and no acute distress Orientation/consciousness: oriented to person, oriented to place, oriented to time and patient oriented x3 Limitations: no limitations HENMT Head: Yes normocephalic and Yes atraumatic Ears: external ears normal General nose exam: Normal external nose present Face and sinus: Yes face symmetric Mouth: oropharynx normal and moist mucous membranes Throat: Yes uvula midline Eyes Pupils: Equal, round and reactive pupils present Neck Neck: Yes normal visual inspection and Yes supple Resp Effort & Inspection: normal respiratory effort and able to speak in complete sentences Auscultation: clear to auscultation bilaterally Cardio Rate: regular rate Rhythm: regular rhythm Heart sounds: S1 normal heart sound present and S2 normal heart sound present GI Inspection: Yes distended Palpation (GI): Soft to palpation, Tenderness to palpation present (GI) (diffusely tender), no guarding and No Rebound tenderness present Auscultation: normoactive bowel sounds General: Yes no CVA tenderness Back/Spine/Pelvis Back: no CVA tenderness Skin General skin exam: elasticity normal and turgor normal Neuro General: oriented to person, oriented to place, oriented to time, patient oriented x3, moves all extremities, no focal motor deficits and CN's II-XI intact bilaterally Cranial nerves: Yes Equal, round and reactive pupils present Cognition (Neuro): normal cognition Extrem General: Yes full ROM, Yes no pedal edema and Yes no calf tenderness Psych Mental Status: mental status grossly normal Affect: normal affect Thought process: Normal thought process present Medications Administered Discontinued Medications Generic Name Dose Route Start Last Admin Trade Name Freq PRN Reason Stop Dose Admin Diphenhydramine HCl 25 mg 05/19/24 10:54 05/19/24 11:18 Diphenhydramine Hcl 50 Mg/Ml Vial IVPUSH 05/19/24 10:55 25 mg ONCE ONE Administration Hydromorphone HCl 1 mg 05/19/24 08:52 05/19/24 09:50 Hydromorphone Hcl 1 Mg/Ml Syringe IVPUSH 05/19/24 08:53 1 mg ONCE ONE Administration Protocol Hydromorphone HCl 1 mg 05/19/24 10:54 05/19/24 11:22 Hydromorphone Hcl 1 Mg/Ml Syringe IVPUSH 05/19/24 10:55 1 mg ONCE ONE Administration Protocol Iohexol 85 ml 05/19/24 10:16 05/19/24 10:17 Iohexol 350 Mg/Ml 100 Ml Infus..Btl IV 05/19/24 10:17 85 ml ONCE ONE Administration Lorazepam 0.5 mg 05/19/24 08:52 05/19/24 09:49 Lorazepam 2 Mg/Ml Vial IVPUSH 05/19/24 08:53 0.5 mg ONCE ONE Administration Metoclopramide HCl 10 mg 05/19/24 10:54 05/19/24 11:22 Metoclopramide Hcl 10 Mg/2 Ml Vial IVPUSH 05/19/24 10:55 10 mg ONCE ONE Administration Promethazine HCl 25 mg 05/19/24 12:15 05/19/24 12:32 Promethazine Hcl 25 Mg Tablet PO 05/19/24 12:16 25 mg ONCE ONE Administration Medical Decision Making Medical Decision Making [facility] Narrative: Patient is a 43-year-old male with history of Crohn's disease, recent colonoscopy in [place] 2 weeks ago, presenting to the ED with complaint of abdominal pain, bloating, vomiting and diarrhea for the past 3 days. On exam patient is awake, A+Ox3, VS WNL, afebrile, normal neurological exam without focal deficits, physical exam findings as above. Given reported symptoms and physical exam findings, initial differential includes Crohn's flare, obstruction, abscess, perforation. Labs notable for no leukocytosis or left shift, no anemia, no significant electrolyte abnormalities. CT notable for no evidence of obstruction, perforation or abscess. My interpretation is in agreement with the radiologist's interpretation. Patient complaining of ongoing pain and nausea after first round of medications, will order additional meds. Patient reports good relief of symptoms after second round of medications. Able to tolerate PO fluids. Patient states that he feels comfortable with discharge home. Advised to follow up with GI. REturn precautions discussed. Patient verbalized understanding of and agreement with plan. Differential Diagnosis Differential Diagnoses: The differential diagnosis associated with the presentation includes as per mdm Admission/Observation Consideration of admission/observation: Escalation of care including admission/observation considered Patient would have been admitted to the hospital had their work up had any findings where hospital admission was appropriate and their clinical presentation warranted hospital admission. Lab Data [facility] Lab Attestation statement: I reviewed the patient's lab results. as per [facility] 05/19/24 09:27 05/19/24 09:27 Labs: Lab Results 05/19/24 05/19/24 Range/Units 09:27 10:27 WBC 5.4 (4.8-10.8) X10*3/uL RBC 4.62 (4.60-5.80) X10*6/uL Hgb 14.8 (14.0-18.0) g/dl Hct 42.2 (42.0-52.0) % MCV 91.3 (80.0-98.0) fL MCH 32.0 (27.0-33.0) pg MCHC 35.1 (31.0-36.0) g/dl RDW 12.5 (11.0-16.0) % Plt Count 158 L (160-400) X10*3/uL MPV 10.6 (9.4-12.4) fL Immature Gran % (Auto) 0.2 (0.0-0.4) % Neut % (Auto) 69.1 (45-73) % Lymph % (Auto) 23.8 (20-40) % Bond % (Auto) 5.8 (2-11) % Eos % (Auto) 0.7 (0-4) % Baso % (Auto) 0.4 (0-2) % Lymph # (Auto) 1.3 (1.2-4.9) X10*3/uL Bond # (Auto) 0.3 (0.1-1.2) X10*3/uL Eos # (Auto) 0.0 (0.0-0.4) X10*3/uL Baso # (Auto) 0.0 (0.0-0.2) X10*3/uL Abs Immat Gran (auto) 0.01 (0.00-0.03) X10*3/uL Absolute Neuts (auto) 3.7 (2.0-8.3) x10*3/uL Absolute Nucleated RBC 0.000 (0.0-0.012) X10*3/uL Nucleated RBC % (auto) 0.0 (0.0-0.2) /100WBC PT 12.2 (10.9-12.4) SEC INR 1.0 (0.9-1.1) Sodium 143 (135-145) mmol/L Potassium 4.3 (3.3-5.1) mmol/L Chloride 106 (96-108) mmol/L Carbon Dioxide 29 (22-29) mmol/L Anion Gap 12 (12-20) BUN 11 (9-16) mg/dL Creatinine 0.80 (0.5-1.4) mg/dL Estim Creat Clear Calc 97.6 Estimated GFR > 60 Random Glucose 94 (60-115) mg/dL Calcium 9.6 (8.4-10.2) mg/dL Magnesium 1.9 (1.6-2.6) mg/dL Total Bilirubin 1.3 H (0.0-1.0) mg/dL AST 29 (5-37) U/L ALT 44 H (0-40) U/L Alkaline Phosphatase 63 (39-117) U/L Total Protein 7.7 (6.5-8.0) g/dL Albumin 4.2 (3.5-5.0) g/dL Urine Color Dark Yellow Urine Appearance Clear Urine pH 6.0 (5.0-9.0) Ur Specific [place] 1.020 (1.005-1.025) Urine Protein Negative (Neg-Trace) mg/dL Urine Glucose (UA) Negative (Negative) mg/dL Urine Ketones Negative (Negative) mg/dL Urine Blood Negative (Negative) Urine Nitrite Negative (Negative) Ur Leukocyte Esterase Negative (Negative) Independent Interpretation I performed an independent interpretation of an: CT Scan Interpretation: CT notable for no evidence of obstruction, perforation or abscess. Radiology Impression Discussion of test interpretation with radiology: I have reviewed the radiologist's reading. Radiologist Impression: CT/CT abdomen pelvis w IV con IMPRESSION: Status post total colectomy. No intestinal obstruction pattern or peritoneal abscess. External Record Review External record reviewed: Inpatient record, Office record and Outpatient record Discharge Plan Discharge Clinical Impression: Abdominal pain Patient Disposition: Home, Self-Care Instructions: Abdominal Pain (ED), Crohn Disease (ED) Additional Instructions: You have been evaluated in the emergency department today for abdominal pain. Your evaluation did not show evidence of medical conditions requiring emergent intervention at this time. Your symptoms improved with medication in the ED. 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 Return to the emergency department if you experience worsening or uncontrolled pain, fevers 100.4? F or greater, recurrent vomiting, inability to tolerate food or fluids by mouth, bloody stools or vomit, black or tarry stools, or any other concerning symptoms. Prescriptions: No Action tizanidine 4 mg tablet 6 mg PO BEDTIME PRN (Reason: Muscle Spasm) 30 Days Qty: 135 3RF propranolol 10 mg tablet 10 mg PO BID 90 Days Qty: 180 1RF magnesium oxide 400 mg (241.3 mg magnesium) tablet 400 mg PO BEDTIME 30 Days Qty: 30 6RF Rx Instructions: may hold for loose stools topiramate 25 mg tablet 25 - 50 mg PO DAILY 30 Days Qty: 60 6RF hydrocortisone 1 % cream 1 appl topical BID PRN (Reason: Itching) tramadol 50 mg tablet 50 mg PO BID PRN (Reason: moderate pain (scale score 5-6)) Qty: 14 0RF promethazine 25 mg tablet 25 mg PO Q6H PRN (Reason: nausea and vomiting) Qty: 10 0RF metronidazole 500 mg tablet 500 mg PO BID 7 Days Qty: 14 0RF oxycodone 5 mg tablet 5 mg PO Q8H PRN (Reason: pain) Qty: 5 0RF Rx Instructions: Partial Fill upon patient request. docusate sodium [Colace] 100 mg capsule 100 mg PO BID PRN (Reason: Constipation) Qty: 14 0RF polyethylene glycol 3350 [Miralax] 17 gram/dose powder 17 g PO DAILY Qty: 119 0RF ondansetron HCl 4 mg tablet 4 mg PO Q8H Qty: 14 0RF clonazepam 1 mg tablet 1 tab PO BID PRN (Reason: Anxiety) omeprazole 20 mg capsule,delayed release(DR/EC) 2 cap PO DAILY@0630 zolpidem 10 mg tablet 1 tab PO BEDTIME loratadine 10 mg tablet 1 tab PO DAILY PRN (Reason: Allergy Symptoms) Humira(CF) Pen 40 mg/0.4 mL pen injector kit 40 mg subcut TH@0900 multivitamin with folic acid [Daily-Davis (with folic acid)] 400 mcg tablet 1 tab PO DAILY hydrocortisone 100 mg/60 mL enema 100 mg OR DAILY 14 Days Qty: 840 0RF dicyclomine 10 mg capsule 10 mg PO QID PRN (Reason: abdominal pain) Qty: 15 0RF promethazine 12.5 mg tablet 12.5 mg PO TID PRN (Reason: nausea and vomiting) Qty: 10 0RF Rx Instructions: 3 doses during day; last dose no later than 4 hr before bedtime promethazine 25 mg tablet 25 mg PO Q6H PRN (Reason: nausea and vomiting) Qty: 20 0RF dicyclomine 10 mg capsule 10 mg PO QID PRN (Reason: abdominal pain) Qty: 20 0RF oxycodone 5 mg capsule 5 mg PO BID PRN (Reason: severe pain) Qty: 6 0RF Rx Instructions: Partial Fill upon patient request. prednisone 20 mg tablet 60 mg PO DAILY 5 Days Qty: 15 0RF sumatriptan succinate 100 mg tablet 50 - 100 mg PO .COMPLEX PRN (Reason: migraine headache) 30 Days Qty: 12 6RF Rx Instructions: 50 - 100 mg orally at onset of headache, may repeat in 2 hrs PRN; max 2 tabs per day or 4 tabs/week (may take with Ibuprofen) Print Language: Thai
[2024-05-19 09:32] LABS: Basophils Percent Auto 0.4 % (0-2); Eosinophils Percent Auto 0.7 % (0-4); Hematocrit 42.2 % (42.0-52.0); Hemoglobin 14.8 g/dl (14.0-18.0); Imm Gran Abs Auto 0.01 X10*3/uL (0.00-0.03); Imm Gran Pct Auto 0.2 % (0.0-0.4); Lymphocytes Absolute Auto 1.3 X10*3/uL (1.2-4.9); Lymphocytes Percent Auto 23.8 % (20-40); MANUAL DIFF FLAG NO; Mean Corpuscular HGB Conc 35.1 g/dl (31.0-36.0); Mean Corpuscular Volume 91.3 fL (80.0-98.0); Mean Platelet Volume 10.6 fL (9.4-12.4); Monocytes Absolute Auto 0.3 X10*3/uL (0.1-1.2); Monocytes Percent Auto 5.8 % (2-11); Neutrophils Absolute Auto 3.7 x10*3/uL (2.0-8.3); Neutrophils Percent Auto 69.1 % (45-73); Platelet Count 158 X10*3/uL (160-400); Red Blood Count 4.62 X10*6/uL (4.60-5.80); Red Cell Distribution Width 12.5 % (11.0-16.0); White Blood Count 5.4 X10*3/uL (4.8-10.8)
[2024-05-19 09:37] LABS: Prothrombin Time 12.2 SEC (10.9-12.4)
[2024-05-19] MEDS: LORazepam 2 MG/ML VIAL 0.5 MG IVPUSH (09:49)
[2024-05-19 09:50] VITALS: RESP 20
[2024-05-19] MEDS: HYDROmorphone HCl 1 MG/ML SYRINGE IVPUSH ×2 (09:50→11:22)
[2024-05-19 09:52] LABS: Alanine Aminotransferase 44 U/L (0-40); Albumin Level 4.2 g/dL (3.5-5.0); Alkaline Phosphatase 63 U/L (39-117); Anion Gap 12 (12-20); Aspartate Amino Transferase 29 U/L (5-37); Bilirubin Total 1.3 mg/dL (0.0-1.0); Blood Urea Nitrogen 11 mg/dL (9-16); Calcium 9.6 mg/dL (8.4-10.2); Carbon Dioxide 29 mmol/L (22-29); Chloride 106 mmol/L (96-108); Creatinine Clr Calc Pharmacy 97.6; Estimated Glomerular Filt Rate > 60; Glucose Random 94 mg/dL (60-115); Magnesium 1.9 mg/dL (1.6-2.6); Potassium 4.3 mmol/L (3.3-5.1); Sodium 143 mmol/L (135-145); Total Protein 7.7 g/dL (6.5-8.0)
--- NOTE | 2024-05-19 09:53 | PC.NURSE ---
20G peripheral IV inserted to pt.'s RAC. Tolerated well. Good blood return and flushes easily without discomfort.
--- NOTE | 2024-05-19 09:53 | PC.NURSE ---
Pt. medicated per SEP.
[2024-05-19 09:55] VITALS: BP 102/71; PULSE 75; RESP 20; TEMP 36.6; O2SAT 96
[2024-05-19] MEDS: iohexoL 350 MG/ML 100 ML INFUS..BTL 85 ML IV (10:17)
[2024-05-19 10:41] LABS: Appearance Urine Clear; Color Urine Dark Yellow; Glucose Urine UA Negative (Negative); Leukocyte Esterase Urine Negative (Negative); Nitrite Urine Negative (Negative); Urine Blood Negative (Negative); Urine Ketones Negative (Negative); Urine Protein Negative (Neg-Trace)
[2024-05-19] MEDS: diphenhydrAMINE HCL 50 MG/ML VIAL 25 MG IVPUSH (11:18)
[2024-05-19 11:22] VITALS: RESP 18
[2024-05-19] MEDS: Metoclopramide HCl 10 MG/2 ML VIAL IVPUSH (11:22)
[2024-05-19] MEDS: Promethazine HCL 25 MG TABLET PO (12:32)
--- NOTE | 2024-05-19 12:45 | PC.NURSE ---
pt verbalizing slight improvement in abd pain s/p medication administration. pt still reporting nausea - requesting promethazine as pt states that this is what he takes at home. PO medication administered per provider order. will attempt PO challenge shortly. pt otherwise resting in no apparent distress. no sob/wob noted. respirations even/unlabored. plan of care ongoing. call vidal placed within reach.
[2024-05-19 13:58] VITALS: BP 109/73; PULSE 75; RESP 16; TEMP 36.6; O2SAT 97
--- NOTE | 2024-05-19 13:59 | PC.NURSE ---
pt tolerated PO challenge w/o difficulty prior to discharge. pt reports medication administration was effective.
[2024-05-19 14:00] VITALS: BP 109/73; PULSE 75; RESP 16; TEMP 36.6; O2SAT 97
== END 2024-05-19 14:00 | disposition home or self-care (01) ==
PROVIDERS: Registered Nurse Emergency; Emergency Provider Emergency Medicine
DX: R10.9 Unspecified abdominal pain (principal); R11.2 Nausea with vomiting, unspecified; K50.90 Crohn's disease, unspecified, without complications
CPT/HCPCS: 36415; 74177; 80053; 81003; 83735; 85025; 85610; 96374; 96375; 96376; 99284; J1171; J1200; J2060; J2765; Q9967

== ENCOUNTER → 2024-05-19 08:39 | Outpatient (BNV) | payer OTHER, SELFPAY | PROVIDERS: Emergency Provider Emergency Medicine; Visit Provider Radiology Diagnostic Radiology | DX: N20.0 Calculus of kidney (principal); Z90.49 Acquired absence of other specified parts of digestive tract | CPT/HCPCS: 74177 ==

== ENCOUNTER 2024-06-05 07:13 | Emergency (ER) | payer OTHER, SELFPAY ==
--- NOTE | ~2024-06-05 | CT_ITS ---
EXAMINATION: CT ABDOMEN AND PELVIS WITH CONTRAST CLINICAL INFORMATION: Crohn's disease. Abdominal pain. Small bowel obstruction. Viscus perforation. COMPARISON: CT scans dating between May 19, 2024 and April 23, 2007. TECHNIQUE: Multidetector volumetric images were obtained from the superior aspect of the liver through the pubic symphysis following administration 85 mL of Omnipaque 350 intravenous contrast. Sagittal and coronal reformatted images were obtained on the technologist's workstation. Oral contrast: No This CT examination was performed using dose optimization techniques as appropriate, variously including the following: *Automated exposure control *Adjustment of mA and/or kV according to patient size (this includes techniques or standardized protocols for targeted exams where dose is matched to indication/reason for exam; i.e. extremities or head) *Use of iterative reconstruction technique DLP: 481 mGy-cm FINDINGS: LUNG BASES: The lung bases appear clear, with no evidence of inflammation or nodules. LIVER, GALLBLADDER, AND BILIARY TREE: The liver appears unremarkable in size, shape, and attenuation. No focal hepatic lesion or biliary ductal dilatation is appreciated. Status post cholecystectomy. PANCREAS: Unremarkable SPLEEN: Measures 13.2 cm in sagittal dimension, having measured approximately 12.2 cm in sagittal dimension on May 19, 2024. ADRENAL GLANDS: Unremarkable KIDNEYS AND URETERS: 0.3 cm or less, bilateral, nonobstructing renal collecting system stones. Subcentimeter benign bilateral simple renal cysts for which no further dedicated follow-up imaging as indicated. The kidneys appear unremarkable in size, shape, and attenuation. No hydronephrosis, hydroureter, or calculi seen. BLADDER: Unremarkable GASTROINTESTINAL TRACT: Evidence of subtotal colectomy, unchanged. No evidence of intestinal obstruction. PERITONEAL CAVITY: No evidence of ascites or free intraperitoneal air. ABDOMINAL WALL: No significant hernia is appreciated. LYMPH NODES: No evidence of adenopathy by size criteria. VASCULAR: Question mild esophageal varices. PELVIC VISCERA: Unremarkable OSSEOUS STRUCTURES: Unremarkable CT/CT abdomen pelvis w IV con IMPRESSION: No acute finding. Mild splenomegaly. Question mild esophageal varices. Cannot exclude portal hypertension. No evidence of ascites. Additional findings as above. Electronically signed by: Royer Gentile MD 06/05/2024 09:33 AM EST
[2024-06-05 07:15] VITALS: BP 111/65; PULSE 84; RESP 20; TEMP 36.2; O2SAT 97; BMI 25.3
[2024-06-05 07:24] LABS: MANUAL DIFF FLAG NO
[2024-06-05 07:32] LABS: Basophils Percent Auto 0.6 % (0-2); Eosinophils Absolute Auto 0.1 X10*3/uL (0.0-0.4); Eosinophils Percent Auto 1.5 % (0-4); Hematocrit 40.5 % (42.0-52.0); Hemoglobin 14.3 g/dl (14.0-18.0); Imm Gran Abs Auto 0.01 X10*3/uL (0.00-0.03); Imm Gran Pct Auto 0.2 % (0.0-0.4); Lymphocytes Absolute Auto 1.3 X10*3/uL (1.2-4.9); Lymphocytes Percent Auto 25.1 % (20-40); Mean Corpuscular HGB Conc 35.3 g/dl (31.0-36.0); Mean Corpuscular Hemoglobin 32.6 pg (27.0-33.0); Mean Corpuscular Volume 92.3 fL (80.0-98.0); Mean Platelet Volume 10.9 fL (9.4-12.4); Monocytes Absolute Auto 0.4 X10*3/uL (0.1-1.2); Monocytes Percent Auto 8.3 % (2-11); Neutrophils Absolute Auto 3.4 x10*3/uL (2.0-8.3); Neutrophils Percent Auto 64.3 % (45-73); Platelet Count 147 X10*3/uL (160-400); Red Blood Count 4.39 X10*6/uL (4.60-5.80); Red Cell Distribution Width 12.3 % (11.0-16.0); White Blood Count 5.2 X10*3/uL (4.8-10.8)
[2024-06-05 07:43] LABS: Alanine Aminotransferase 44 U/L (0-40); Alkaline Phosphatase 64 U/L (39-117); Anion Gap 14 (12-20); Aspartate Amino Transferase 35 U/L (5-37); Bilirubin Total 1.5 mg/dL (0.0-1.0); Blood Urea Nitrogen 12 mg/dL (9-16); Calcium 9.3 mg/dL (8.4-10.2); Carbon Dioxide 25 mmol/L (22-29); Chloride 102 mmol/L (96-108); Creatinine Clr Calc Pharmacy 101.4; Estimated Glomerular Filt Rate > 60; Glucose Random 149 mg/dL (60-115); Sodium 137 mmol/L (135-145); Total Protein 7.3 g/dL (6.5-8.0)
--- NOTE | 2024-06-05 08:04 | PC.NURSE ---
Pt comes from home for lower abdominal pain/nausea and vomiting. Pt states he has a hx of Crohns and feels as though its a flare up. Unable to keep food/liquids/medications down. A/ox4, respirations even and unlabored, no increased wob/sob noted, s1 and s2 heard, abdomen distended, tender on palpation. Pt states he has also noticed some bright red blood in his stool. Labs obtained and sent, pt given urine cup, call vidal within reach, all needs met at this time.
--- NOTE | 2024-06-05 08:23 | ED.ABDPAIN ---
HPI - Abdominal Pain General Chief Complaint: Abdominal Pain Stated Complaint: Stomach Pain Vomiting Etc Time Seen by Provider: 06/05/24 08:08 Source: patient Mode of arrival: ambulatory Limitations: no limitations History of Present Illness ED Provider: DR. Zamorano HPI narrative: 43-year-old male with history of Crohn's disease presented to the emergency department for 3 days of severe abdominal pain and distention with intractable vomiting, patient had multiple bouts of bloody bowel movement yesterday, patient with history of total colectomy and temporary colostomy ( was revised). Last bowel movement was last night and patient described as loose with blood. Related Data Home Medications ?Medication ?Instructions ?Recorded ?Confirmed adalimumab 40 mg/0.4 mL 40 mg subcut TH@0900 08/19/21 06/11/22 subcutaneous pen kit (Humira(CF) Pen) clonazepam 1 mg tablet 1 tab PO BID PRN Anxiety 08/19/21 06/11/22 loratadine 10 mg tablet 1 tab PO DAILY PRN Allergy Symptoms 08/19/21 06/11/22 omeprazole 20 mg capsule,delayed 2 cap PO DAILY@0630 08/19/21 06/11/22 release zolpidem 10 mg tablet 1 tab PO BEDTIME 08/19/21 06/11/22 hydrocortisone 1 % topical cream 1 appl topical BID PRN Itching 09/18/21 06/11/22 multivitamin with folic acid 400 1 tab PO DAILY 06/11/22 06/11/22 mcg tablet (Daily-Davis (with folic acid)) Previous Rx's ?Medication ?Instructions ?Recorded tizanidine 4 mg tablet 6 mg (1.5 x 4 mg) PO BEDTIME PRN 03/25/22 Muscle Spasm 30 days #135 tabs propranolol 10 mg tablet 10 mg PO BID 90 days #180 tabs 03/26/22 tramadol 50 mg tablet 50 mg PO BID PRN moderate pain 04/17/22 (scale score 5-6) #14 tabs sumatriptan succinate 100 mg tablet 50 - 100 mg (0.5 - 1 x 100 mg) PO 06/14/22 .COMPLEX PRN migraine headache 30 days #12 tabs magnesium oxide 400 mg (241.3 mg 400 mg PO BEDTIME 30 days #30 tabs 07/03/22 magnesium) tablet metronidazole 500 mg tablet 500 mg PO BID 7 days #14 tabs 07/14/22 oxycodone 5 mg tablet 5 mg PO Q8H PRN pain #5 tabs 07/14/22 promethazine 25 mg tablet 25 mg PO Q6H PRN nausea and 07/14/22 vomiting #10 tabs topiramate 25 mg tablet 25 - 50 mg (1 - 2 x 25 mg) PO 09/14/22 DAILY 30 days #60 tabs docusate sodium 100 mg capsule 100 mg PO BID PRN Constipation #14 09/28/22 (Colace) caps ondansetron HCl 4 mg tablet 4 mg PO Q8H #14 tabs 09/28/22 polyethylene glycol 3350 17 17 g PO DAILY #119 grams 09/28/22 gram/dose oral powder (Miralax) oxycodone 5 mg capsule 5 mg PO BID PRN severe pain #6 caps 11/02/22 prednisone 20 mg tablet 60 mg (3 x 20 mg) PO DAILY 5 days 01/31/23 #15 tabs hydrocortisone 100 mg/60 mL enema 100 mg (60 mL) RI DAILY 2 weeks 04/06/23 #840 mL dicyclomine 10 mg capsule 10 mg PO QID PRN abdominal pain 09/05/23 #15 caps promethazine 12.5 mg tablet 12.5 mg PO TID PRN nausea and 02/08/24 vomiting #10 tabs dicyclomine 10 mg capsule 10 mg PO QID PRN abdominal pain 04/29/24 #20 caps promethazine 25 mg tablet 25 mg PO Q6H PRN nausea and 04/29/24 vomiting #20 tabs Allergies Allergy/AdvReac Type Severity Reaction Status Date / Time ondansetron [Ondansetron] Allergy Mild HIVES Verified 06/05/24 07:16 Sulfa (Sulfonamide Allergy Mild UNKNOWN Verified 06/05/24 07:16 Antibiotics) ketorolac Allergy Unknown Unknown Verified 06/05/24 07:16 meperidine [Demerol] Allergy Unknown Unknown Verified 06/05/24 07:16 metoclopramide [Reglan] Allergy Unknown Unknown Verified 06/05/24 07:16 morphine [Morphine] Allergy Unknown RASH Verified 06/05/24 07:16 haloperidol [From Haldol] Allergy Anaphylaxis Verified 06/05/24 07:16 ketamine Allergy Unknown Verified 06/05/24 07:16 From REGLAN Allergy Mild PT UNSURE Uncoded 02/15/24 07:09 BUT STATES HE IS ALLERGIC Compro Allergy Unknown Unknown Uncoded 02/15/24 07:09 From COMPAZINE Allergy Unknown ITCHING Uncoded 02/15/24 07:09 From Demerol Allergy Unknown ITCHY HIVES Uncoded 02/15/24 07:09 From Toradol Allergy Unknown UNK Uncoded 02/15/24 07:09 Review of Systems Review of Systems All other systems are reviewed and are negative Constitutional: Reports as per HPI and Reports no additional constitutional complaints Eyes: Reports as per HPI and Reports no additional eye complaints Reports system reviewed and no additional complaints, except as documented Cardiovascular: Reports as per HPI and Reports no additional cardiovascular complaints Respiratory: Reports as per HPI and Reports no additional respiratory complaints Gastrointestinal: Reports as per HPI and Reports no additional gastrointestinal complaints Genitourinary: Reports no additional female genitourinary complaints Musculoskeletal: Reports no additional musculoskeletal complaints Skin/Breast: Reports system reviewed and no additional complaints, except as docu Psychiatric: Reports no additional psychiatric complaints Endocrine: Reports no additional endocrine complaints Hematologic/Lymphatic: Reports no additional hematologic/lymphatic complaints Allergic/Immunologic: Reports no additional allergic/immunologic complaints Reports system reviewed and no additional complaints, except as documented and Reports Abnormal speech present [facility] Past Medical History Medical History Cervicalgia Migraine Anxiety Crohn's disease IBD (inflammatory bowel disease) Partial small bowel obstruction Surgical History History of colostomy reversal S/P colostomy History of surgery on arm Hx of colonoscopy History of esophagogastroduodenoscopy (EGD) Family History Family History Mother HTN (hypertension) Social History Social History Household Members: Spouse Housing: House Do you presently have visiting nurse or other home services: No Alcohol intake: never Patient Tobacco Use Status: Never used Tobacco Smoked in Last 30 Days: No Use of substances other than those prescribed or required for medical reasons: No Advance Directives: No Advance Directives Information Provided: Yes Do you have a plan to hurt others: No Plan service: No Current occupational status: disabled Physical Exam ED Vital Signs: Vital Signs - 24 hr 06/05/24 07:15 06/05/24 08:39 06/05/24 08:49 Temperature 97.1 F 98.0 F Pulse Rate 84 84 Respiratory Rate 20 22 H 20 Blood Pressure 111/65 104/66 Pulse Oximetry 97 96 Oxygen Delivery Method Room Air Room Air BMI result Body Mass Index 25.3 Vital signs have been reviewed and appear to be correct. Blood pressure elevated. Heart rate normal. Respiratory rate normal. Temperature normal. Oxygen saturation normal. Appearance: Alert. Oriented X3. No acute distress. Head: Normal external exam. Normocephalic. Atraumatic. No Blanco signs noted. No raccoon eyes noted Eyes: PERRLA. EOMI. Conjunctiva and sclera normal. Eyelids normal. ENT: TM's Normal. Pharynx normal. Uvula midline. Moist mucous membranes. No trismus noted. No drooling noted. No muffled voice noted. Neck: Normal inspection. Neck supple. FROM. No adenopathy. Thyroid Normal. No meningeal signs. No neck mass noted. CVS: Normal heart rate and rhythm. Heart sound normal. No murmurs noted. Pulses normal throughout. Respiratory: No respiratory distress. Painless inspiration. Breath sounds normal. No wheezes/rales/rhonchi noted. Chest nontender. No accessory muscle usage noted or decreased air movement noted. Abdomen: Soft and nontender. Bowel sounds normal in all 4 quadrants. No distention noted. No organomegaly noted. No visible injury noted. Back: No CVA tenderness. Full range of motion noted. Skin: Skin warm and dry. Normal skin color. Normal skin turgor. No rashes/lesions/lacerations noted. Extremities: No lower extremity edema. Extremities exhibit normal range of motion. Extremities nontender. Neuro: Oriented X 3. Cranial nerve exam: II-XII are grossly intact No motor deficit. No sensory deficit. Reflexes normal. Course Reevaluation(s) Reevaluation #1: history of Crohn's colitis and total colectomy presented with abdominal pain and vomiting, labs are unremarkable, CT abdomen and pelvis is revealing no acute findings. Patient feels much better after was given Dilaudid in the emergency department, improvement of the vomiting and patient is able to tolerate p.o. intake, will discharge the patient with instruction to follow-up with his GI in [place] patient fully understand my instruction and willing to contact his PCP/GI. Time: 10:41 Medical Decision Making Differential Diagnosis Differential Diagnoses: The differential diagnosis associated with the presentation includes ( Crohn's colitis flare, small-bowel obstruction, perforated viscus, gastritis, pancreatitis, diverticulitis, severe anemia, electrolyte derangement.) Admission/Observation Consideration of admission/observation: Escalation of care including admission/observation considered Lab Data MDM Lab Attestation statement: I reviewed the patient's lab results. 06/05/24 07:21 06/05/24 07:21 Labs: Lab Results 06/05/24 06/05/24 Range/Units 07:21 08:44 WBC 5.2 (4.8-10.8) X10*3/uL RBC 4.39 L (4.60-5.80) X10*6/uL Hgb 14.3 (14.0-18.0) g/dl Hct 40.5 L (42.0-52.0) % MCV 92.3 (80.0-98.0) fL MCH 32.6 (27.0-33.0) pg MCHC 35.3 (31.0-36.0) g/dl RDW 12.3 (11.0-16.0) % Plt Count 147 L (160-400) X10*3/uL MPV 10.9 (9.4-12.4) fL Immature Gran % (Auto) 0.2 (0.0-0.4) % Neut % (Auto) 64.3 (45-73) % Lymph % (Auto) 25.1 (20-40) % Tillman % (Auto) 8.3 (2-11) % Eos % (Auto) 1.5 (0-4) % Baso % (Auto) 0.6 (0-2) % Lymph # (Auto) 1.3 (1.2-4.9) X10*3/uL [place]man # (Auto) 0.4 (0.1-1.2) X10*3/uL Eos # (Auto) 0.1 (0.0-0.4) X10*3/uL Baso # (Auto) 0.0 (0.0-0.2) X10*3/uL Abs Immat Gran (auto) 0.01 (0.00-0.03) X10*3/uL Absolute Neuts (auto) 3.4 (2.0-8.3) x10*3/uL Absolute Nucleated RBC 0.000 (0.0-0.012) X10*3/uL Nucleated RBC % (auto) 0.0 (0.0-0.2) /100WBC Sodium 137 (135-145) mmol/L Potassium 4.0 (3.3-5.1) mmol/L Chloride 102 (96-108) mmol/L Carbon Dioxide 25 (22-29) mmol/L Anion Gap 14 (12-20) BUN 12 (9-16) mg/dL Creatinine 0.80 (0.5-1.4) mg/dL Estim Creat Clear Calc 101.4 Estimated GFR > 60 Random Glucose 149 H (60-115) mg/dL Calcium 9.3 (8.4-10.2) mg/dL Total Bilirubin 1.5 H (0.0-1.0) mg/dL AST 35 (5-37) U/L ALT 44 H (0-40) U/L Alkaline Phosphatase 64 (39-117) U/L Total Protein 7.3 (6.5-8.0) g/dL Albumin 4.0 (3.5-5.0) g/dL Lipase 20 (8-78) U/L Urine Color Dark Yellow Urine Appearance Clear Urine pH 6.0 (5.0-9.0) Ur Specific [place] 1.025 (1.005-1.025) Urine Protein Negative (Neg-Trace) mg/dL Urine Glucose (UA) Negative (Negative) mg/dL Urine Ketones Negative (Negative) mg/dL Urine Blood Negative (Negative) Urine Nitrite Negative (Negative) Ur Leukocyte Esterase Negative (Negative) Stool Occult Blood NEGATIVE (NEGATIVE) Independent Interpretation I performed an independent interpretation of an: CT Scan ( abdomen pelvis:No acute finding. Mild splenomegaly. Question mild esophageal varices. Cannot exclude portal hypertension. No evidence of ascites.) Radiology Impression Discussion of test interpretation with radiology: I have reviewed the radiologist's reading. Medications Administered Discontinued Medications Generic Name Dose Route Start Last Admin Trade Name Freq PRN Reason Stop Dose Admin Al Hydroxide/Mg Hydroxide 30 ml 06/05/24 08:27 06/05/24 08:41 Magnesium Hydrox/Alum Hydrox 30 Ml Oral.Susp PO 06/05/24 08:28 30 ml ONCE ONE Administration Famotidine 20 mg 06/05/24 08:27 06/05/24 08:37 Famotidine/Pf 20 Mg/2 Ml Vial IVPUSH 06/05/24 08:28 20 mg ONCE ONE Administration Hydromorphone HCl 1 mg 06/05/24 08:22 06/05/24 08:39 Hydromorphone Hcl 1 Mg/Ml Syringe IVPUSH 06/05/24 08:23 1 mg ONCE ONE Administration Protocol Iohexol 85 ml 06/05/24 08:30 06/05/24 08:31 Iohexol 350 Mg/Ml 75 Ml Infus..Btl IV 06/05/24 08:31 85 ml ONCE ONE Administration Promethazine HCl 12.5 mg 06/05/24 08:28 06/05/24 09:00 Promethazine Hcl 25 Mg/Ml Vial IM 06/05/24 08:29 12.5 mg ONCE ONE Administration Discharge Plan Discharge Clinical Impression: Crohn's disease, Abdominal pain Patient Disposition: Home, Self-Care Instructions: Crohn Disease (ED) Prescriptions: No Action tizanidine 4 mg tablet 6 mg PO BEDTIME PRN (Reason: Muscle Spasm) 30 Days Qty: 135 3RF propranolol 10 mg tablet 10 mg PO BID 90 Days Qty: 180 1RF magnesium oxide 400 mg (241.3 mg magnesium) tablet 400 mg PO BEDTIME 30 Days Qty: 30 6RF Rx Instructions: may hold for loose stools topiramate 25 mg tablet 25 - 50 mg PO DAILY 30 Days Qty: 60 6RF hydrocortisone 1 % cream 1 appl topical BID PRN (Reason: Itching) tramadol 50 mg tablet 50 mg PO BID PRN (Reason: moderate pain (scale score 5-6)) Qty: 14 0RF promethazine 25 mg tablet 25 mg PO Q6H PRN (Reason: nausea and vomiting) Qty: 10 0RF metronidazole 500 mg tablet 500 mg PO BID 7 Days Qty: 14 0RF oxycodone 5 mg tablet 5 mg PO Q8H PRN (Reason: pain) Qty: 5 0RF Rx Instructions: Partial Fill upon patient request. docusate sodium [Colace] 100 mg capsule 100 mg PO BID PRN (Reason: Constipation) Qty: 14 0RF polyethylene glycol 3350 [Miralax] 17 gram/dose powder 17 g PO DAILY Qty: 119 0RF ondansetron HCl 4 mg tablet 4 mg PO Q8H Qty: 14 0RF clonazepam 1 mg tablet 1 tab PO BID PRN (Reason: Anxiety) omeprazole 20 mg capsule,delayed release(DR/EC) 2 cap PO DAILY@0630 zolpidem 10 mg tablet 1 tab PO BEDTIME loratadine 10 mg tablet 1 tab PO DAILY PRN (Reason: Allergy Symptoms) Humira(CF) Pen 40 mg/0.4 mL pen injector kit 40 mg subcut TH@0900 multivitamin with folic acid [Daily-Davis (with folic acid)] 400 mcg tablet 1 tab PO DAILY hydrocortisone 100 mg/60 mL enema 100 mg RI DAILY 14 Days Qty: 840 0RF dicyclomine 10 mg capsule 10 mg PO QID PRN (Reason: abdominal pain) Qty: 15 0RF promethazine 12.5 mg tablet 12.5 mg PO TID PRN (Reason: nausea and vomiting) Qty: 10 0RF Rx Instructions: 3 doses during day; last dose no later than 4 hr before bedtime promethazine 25 mg tablet 25 mg PO Q6H PRN (Reason: nausea and vomiting) Qty: 20 0RF dicyclomine 10 mg capsule 10 mg PO QID PRN (Reason: abdominal pain) Qty: 20 0RF oxycodone 5 mg capsule 5 mg PO BID PRN (Reason: severe pain) Qty: 6 0RF Rx Instructions: Partial Fill upon patient request. prednisone 20 mg tablet 60 mg PO DAILY 5 Days Qty: 15 0RF sumatriptan succinate 100 mg tablet 50 - 100 mg PO .COMPLEX PRN (Reason: migraine headache) 30 Days Qty: 12 6RF Rx Instructions: 50 - 100 mg orally at onset of headache, may repeat in 2 hrs PRN; max 2 tabs per day or 4 tabs/week (may take with Ibuprofen) Referrals: [place],[facility] [Primary Care Provider] - Print Language: [place] Islander
[2024-06-05] MEDS: iohexoL 350 MG/ML 75 ML INFUS..BTL 85 ML IV (08:31)
[2024-06-05 08:36] LABS: Lipase 20 U/L (8-78)
[2024-06-05] MEDS: Famotidine/PF 20 MG/2 ML VIAL IVPUSH (08:37)
[2024-06-05 08:39] VITALS: RESP 22
[2024-06-05] MEDS: HYDROmorphone HCl 1 MG/ML SYRINGE IVPUSH (08:39)
[2024-06-05] MEDS: Magnesium Hydrox/Alum Hydrox 30 ML ORAL.SUSP PO (08:41)
[2024-06-05 08:49] VITALS: BP 104/66; PULSE 84; RESP 20; TEMP 36.7; O2SAT 96
[2024-06-05 08:57] LABS: OBS Int Ctl Valid YES; OBS1 NEGATIVE (NEGATIVE)
[2024-06-05 08:58] LABS: Appearance Urine Clear; Color Urine Dark Yellow; Glucose Urine UA Negative (Negative); Leukocyte Esterase Urine Negative (Negative); Nitrite Urine Negative (Negative); Specific Gravity - Urine 1.025 (1.005-1.025); Urine Blood Negative (Negative); Urine Ketones Negative (Negative); Urine Protein Negative (Neg-Trace)
[2024-06-05] MEDS: Promethazine HCL 25 MG/ML VIAL 12.5 MG IM (09:00)
[2024-06-05 10:48] VITALS: RESP 20
[2024-06-05] MEDS: HYDROmorphone HCl 0.5 MG/0.5 ML SYRINGE IVPUSH (10:48)
[2024-06-05 11:02] VITALS: BP 105/75; PULSE 80; RESP 18; TEMP 36.7; O2SAT 99
== END 2024-06-05 11:02 | disposition home or self-care (01) ==
PROVIDERS: Emergency Provider Emergency Medicine
DX: K50.90 Crohn's disease, unspecified, without complications (principal); R10.9 Unspecified abdominal pain; R11.10 Vomiting, unspecified; Z79.899 Other long term (current) drug therapy
CPT/HCPCS: 36415; 74177; 80053; 81003; 82272; 83690; 85025; 96372; 96374; 96375; 96376; 99284; J1171; J2550; Q9967

== ENCOUNTER 2024-06-19 06:51 | Inpatient (IN) | payer OTHER, SELFPAY ==
[2024-06-19] VITALS (8 sets, daily range): BP systolic 102–118; BP diastolic 70–77; PULSE 61–100; RESP 16–20; TEMP 36.6; O2SAT 95–99; BMI 25.4; BMI 25.7
--- NOTE | ~2024-06-19 | CT_ITS ---
EXAMINATION: CT ABDOMEN AND PELVIS WITHOUT CONTRAST CLINICAL INFORMATION: Right flank pain. COMPARISON: Multiple priors, most recent CT abdomen/pelvis dated 06/05/2024. TECHNIQUE: Multidetector volumetric imaging was performed from the superior aspect of the liver through the pubic symphysis. Sagittal and coronal reformatted images were obtained on the technologist's workstation. This CT examination was performed using dose optimization techniques as appropriate, variously including the following: *Automated exposure control *Adjustment of mA and/or kV according to patient size (this includes techniques or standardized protocols for targeted exams where dose is matched to indication/reason for exam; i.e. extremities or head) *Use of iterative reconstruction technique DLP: 440 mGy-cm FINDINGS: LUNG BASES: The visualized lung bases are unremarkable. LIVER, GALLBLADDER, AND BILIARY TREE: The liver is normal in size, shape, and attenuation. Tiny parenchymal calcifications are redemonstrated. No new focal hepatic lesion or biliary ductal dilatation is present. Status post cholecystectomy. PANCREAS: Unremarkable. SPLEEN: Unremarkable. ADRENAL GLANDS: Unremarkable. KIDNEYS AND URETERS: The kidneys are normal in size, shape, and attenuation. Multiple bilateral renal stones/calcifications with the largest in the lower pole of the right kidney measuring up to 0.5 cm and located 8.8 cm from the posterior axillary line. Distal left ureteral stones just proximal to the ureterovesicular junction measuring up to 0.4 and 0.2 cm, new when compared to the prior CT. Minimal left-sided hydroureter without significant hydronephrosis. BLADDER: Unremarkable. GASTROINTESTINAL TRACT: Unremarkable rectosigmoid anastomosis. Additional unremarkable right lower quadrant bowel anastomosis. No small or large bowel obstruction. No bowel wall thickening or inflammatory change. PERITONEAL CAVITY: No intra-abdominal free air or free fluid. Central mesenteric surgical clips are redemonstrated. ABDOMINAL WALL: Small, fat-containing periumbilical hernia. LYMPH NODES: No significant lymphadenopathy. VASCULAR: Unremarkable. PELVIC VISCERA: The prostate and seminal vesicles are unremarkable. OSSEOUS STRUCTURES: Unremarkable. CT/CT abdomen pelvis wo IV con IMPRESSION: 1. Distal left ureteral stones just proximal to the ureterovesicular junction measuring up to 0.4 and 0.2 cm, new when compared to the prior CT. Minimal left-sided hydroureter without significant hydronephrosis. Multiple bilateral renal stones/calcifications. 2. Unremarkable bowel anastomoses. No small or large bowel obstruction. No bowel wall thickening or inflammatory change. 3. No new intra-abdominal mass, lymphadenopathy, or ascites. Fleischner guidelines were followed. Electronically signed by: Andrew Ortega MD 06/19/2024 10:18 AM [facility]
--- NOTE | ~2024-06-19 | US_ITS ---
EXAMINATION: US RETROPERITONEAL COMPLETE (RENAL) CLINICAL INFORMATION: Nephrolithiasis evaluation. COMPARISON: CT abdomen and pelvis 06/19/2024 TECHNIQUE: Real-time imaging of the kidneys and bladder. FINDINGS: RIGHT KIDNEY: 10.4 x 4.1 x 5.1 cm (SAG x AP x TRV). Small mid pole stone at 3 mm. No suspicious mass or hydronephrosis or perinephric collection. LEFT KIDNEY: 10.6 x 3.9 x 5.3 cm (SAG x AP x TRV). Small interpolar calcification at 3 x 4 mm. No suspicious mass, hydronephrosis or perinephric collection. BLADDER: Well distended and normal. Bilateral ureteral jets are demonstrated. Prevoid bladder volume is 173 mL. Postvoid bladder volume is 0 mL. US/US retroperitoneal comp IMPRESSION: Tiny punctate nephroliths bilateral. No suspicious mass or hydronephrosis.. Electronically signed by: Emiliano Cardoso MD 06/21/2024 02:03 PM EST
--- NOTE | 2024-06-19 07:08 | ED_ITS ---
HPI - General Adult General Chief complaint: Abdominal Pain Stated complaint: Kidney stone Time Seen by Provider: 06/19/24 07:07 Source: patient Mode of arrival: ambulatory Limitations: no limitations History of Present Illness ED Provider: Aviva Boyd PA-C HPI narrative: Patient is a 43 year old assigned male at with a history of crohn's disease, anxiety, migraines, and IBD presenting to the emergency department today with right sided flank pain, nausea, and vomiting. Patient states that this is different pain than what he was here for at the end of May. Patient states that he feels as though he can't urinate. Patient denies any dizziness, lightheadedness, fever, chills, blurry vision, double vision, loss of vision, chest pain, difficulty breathing, shortness of breath, back pain, night sweats, pain with urination, increased urinary frequency, increased urinary urgency, blood in his urine or stool, syncope or a near syncopal episode, recent trauma or falls, bowel incontinence, bladder incontinence, or any other complaints at this time. Relieving factors: none Exacerbating factors: none Associated symptoms: nausea/vomiting Treatments prior to arrival: none Related Data Home Medications ?Medication ?Instructions ?Recorded ?Confirmed adalimumab 40 mg/0.4 mL 40 mg subcut TH@0900 08/19/21 06/11/22 subcutaneous pen kit (Humira(CF) Pen) clonazepam 1 mg tablet 1 tab PO BID PRN Anxiety 08/19/21 06/11/22 loratadine 10 mg tablet 1 tab PO DAILY PRN Allergy Symptoms 08/19/21 06/11/22 omeprazole 20 mg capsule,delayed 2 cap PO DAILY@0630 08/19/21 06/11/22 release zolpidem 10 mg tablet 1 tab PO BEDTIME 08/19/21 06/11/22 multivitamin with folic acid 400 1 tab PO DAILY 06/11/22 06/11/22 mcg tablet (Daily-Davis (with folic acid)) cyanocobalamin (vitamin B-12) 1,000 mcg IM QMONTH 06/19/24 1,000 mcg/mL injection solution ferrous gluconate 324 mg (38 mg 324 mg PO 3XW 06/19/24 iron) tablet Previous Rx's ?Medication ?Instructions ?Recorded magnesium oxide 400 mg (241.3 mg 400 mg PO BEDTIME 30 days #30 tabs 07/03/22 magnesium) tablet docusate sodium 100 mg capsule 100 mg PO BID PRN Constipation #14 09/28/22 (Colace) caps polyethylene glycol 3350 17 17 g PO DAILY #119 grams 09/28/22 gram/dose oral powder (Miralax) oxycodone 5 mg capsule 5 mg PO BID PRN severe pain #6 caps 11/02/22 Allergies Allergy/AdvReac Type Severity Reaction Status Date / Time ondansetron [Ondansetron] Allergy Mild HIVES Verified 06/19/24 07:03 Sulfa (Sulfonamide Allergy Mild UNKNOWN Verified 06/19/24 07:03 Antibiotics) ketorolac Allergy Unknown Unknown Verified 06/19/24 07:03 meperidine [Demerol] Allergy Unknown Unknown Verified 06/19/24 07:03 metoclopramide [Reglan] Allergy Unknown Unknown Verified 06/19/24 07:03 morphine [Morphine] Allergy Unknown RASH Verified 06/19/24 07:03 haloperidol [From Haldol] Allergy Anaphylaxis Verified 06/19/24 07:03 ketamine Allergy Unknown Verified 06/19/24 07:03 From REGLAN Allergy Mild PT UNSURE Uncoded 02/15/24 07:09 BUT STATES HE IS ALLERGIC Compro Allergy Unknown Unknown Uncoded 02/15/24 07:09 From COMPAZINE Allergy Unknown ITCHING Uncoded 02/15/24 07:09 From Demerol Allergy Unknown ITCHY HIVES Uncoded 02/15/24 07:09 From Toradol Allergy Unknown UNK Uncoded 02/15/24 07:09 Review of Systems 2 Constitutional: Constitutional: Reports no additional constitutional complaints, Denies chills, Denies fever(s) and Denies night sweats Eyes: Eyes: Reports no additional eye complaints, Denies blurry vision, Denies change in vision, Denies diplopia, Denies eye discharge, Denies loss of vision and Denies eye pain ENT: Denies dizziness Cardiovascular: Cardiovascular: Reports no additional cardiovascular complaints, Denies chest pain, Denies lightheadedness, Denies Loss of Consciousness and Denies dyspnea Respiratory: Respiratory: Reports no additional respiratory complaints and Denies dyspnea Gastrointestinal: Gastrointestinal: Reports no additional gastrointestinal complaints, Reports abdominal pain, Denies melena, Denies hematochezia, Denies change in bowel habits, Denies change in stool character, Reports nausea and Reports vomiting Genitourinary: Genitourinary: Reports no additional male genitourinary complaints, Denies hematuria, Denies oliguria, Reports difficulty urinating, Denies dysuria, Reports flank pain, Denies urinary frequency, Denies urinary hesitancy, Denies urinary incontinence and Denies urinary urgency Musculoskeletal: Musculoskeletal: Reports no additional musculoskeletal complaints, Denies numbness and Denies tingling Neurologic: Denies dizziness, Denies loss of vision, Denies numbness and Denies tingling Psychiatric: Psychiatric: Reports no additional psychiatric complaints Endocrine: Endocrine: Reports no additional endocrine complaints Hematologic/Lymphatic: Hematologic/Lymphatic: Reports no additional hematologic/lymphatic complaints Allergic/Immunologic: Allergic/Immunologic: Reports no additional allergic/immunologic complaints PMFSH Past Medical History Attestation statement: The following information was validated with the patient. Source: old records reviewed and nursing notes reviewed Medical History Cervicalgia Migraine Anxiety Crohn's disease IBD (inflammatory bowel disease) Partial small bowel obstruction Surgical History History of colostomy reversal S/P colostomy History of surgery on arm Hx of colonoscopy History of esophagogastroduodenoscopy (EGD) Family History Family History Mother HTN (hypertension) Social History Social History Household Members: Spouse Housing: House Do you presently have visiting nurse or other home services: No Alcohol intake: never Patient Tobacco Use Status: Never used Tobacco Smoked in Last 30 Days: No Use of substances other than those prescribed or required for medical reasons: No Advance Directives: No Advance Directives Information Provided: Yes Do you have a plan to hurt others: No Plan service: No Current occupational status: disabled Physical Exam ED Vital Signs: Vital Signs - 24 hr 06/19/24 06:59 06/19/24 07:27 06/19/24 08:14 Temperature 97.8 F Pulse Rate 79 80 77 Respiratory Rate 20 18 18 Blood Pressure 102/70 105/73 110/72 Pulse Oximetry 99 97 97 Oxygen Delivery Method Room Air Room Air Room Air 06/19/24 10:38 06/19/24 12:25 Temperature 98 F 98 F Pulse Rate 72 61 Respiratory Rate 16 16 Blood Pressure 112/74 109/75 Pulse Oximetry 99 96 Oxygen Delivery Method Room Air Room Air BMI result Body Mass Index 25.4 Const General: cooperative, no acute distress, alert and awake Nutritional Appearance: well nourished Orientation/consciousness: patient oriented x3 Limitations: no limitations HENMT Head: Yes normal to inspection and Yes atraumatic Ears: hearing grossly normal bilaterally and external ears normal General nose exam: Normal external nose present, no nasal discharge noted and no epistaxis Face and sinus: Yes normal facial exam, No abrasion and No laceration Mouth: Normal oral and palatal mucosa present, no drooling and no muffled voice Eyes General: appearance normal, both eyes and all related structures Periorbital: periorbital findings normal Eyelids: Yes eyelids normal Conjunctivae: conjunctivae normal Pupils: Equal, round and reactive pupils present EOM: EOMs intact bilaterally Neck Neck: Yes normal visual inspection, Yes full ROM and Yes no lymphadenopathy Chest Chest palpation & inspection: normal inspection of the chest Resp Effort & Inspection: normal respiratory effort and able to speak in complete sentences GI Inspection: Yes normal to inspection Neuro General: patient oriented x3 and moves all extremities Cranial nerves: Yes Equal, round and reactive pupils present Cognition (Neuro): normal cognition Extrem General: Yes normal to inspection, Yes full ROM and Yes capillary refill normal Psych Appearance: grossly normal Mental Status: mental status grossly normal Affect: normal affect Attitude: cooperative Thought process: Normal thought process present Thought content: Normal thought content present Insight: Good insight present (Psych) Medications Administered Discontinued Medications Generic Name Dose Route Start Last Admin Trade Name Lenore PRN Reason Stop Dose Admin Diazepam 2.5 mg 06/19/24 08:18 06/19/24 08:42 Diazepam 10 Mg/2 Ml Cartridge IVPUSH 06/19/24 08:19 2.5 mg STAT STA Administration Diphenhydramine HCl 25 mg 06/19/24 07:11 06/19/24 07:25 Diphenhydramine Hcl 50 Mg/Ml Vial IVPUSH 06/19/24 07:12 25 mg ONCE ONE Administration Hydromorphone HCl 1 mg 06/19/24 07:09 06/19/24 07:26 Hydromorphone Hcl 1 Mg/Ml Syringe IVPUSH 06/19/24 07:10 1 mg ONCE ONE Administration Protocol Hydromorphone HCl 0.5 mg 06/19/24 08:18 06/19/24 08:46 Hydromorphone Hcl 0.5 Mg/0.5 Ml Syringe IVPUSH 06/19/24 08:19 0.5 mg ONCE ONE Administration Protocol Hydromorphone HCl 1 mg 06/19/24 09:57 06/19/24 10:39 Hydromorphone Hcl 1 Mg/Ml Syringe IVPUSH 06/19/24 09:58 1 mg ONCE ONE Administration Protocol Sodium Chloride 1,000 mls @ 999 mls/hr 06/19/24 09:00 06/19/24 10:41 Ns IV 06/19/24 10:00 Infused .Q1H1M DULCE MARIA Infusion Prednisone 20 mg 06/19/24 10:22 06/19/24 10:40 Prednisone 20 Mg Tablet PO 06/19/24 10:23 20 mg ONCE ONE Administration Promethazine HCl 12.5 mg 06/19/24 09:57 06/19/24 10:38 Promethazine Hcl 25 Mg/Ml Vial IM 06/19/24 09:58 12.5 mg ONCE ONE Administration Tamsulosin HCl 0.4 mg 06/19/24 10:22 06/19/24 10:40 Tamsulosin Hcl 0.4 Mg Capsule PO 06/19/24 10:23 0.4 mg ONCE ONE Administration Medical Decision Making Medical Decision Making MDM Narrative: Patient is a 43 year old assigned male at with a history of crohn's disease, anxiety, migraines, and IBD presenting to the emergency department today with right sided flank pain, nausea, and vomiting. Patient's physical exam was unremarkable. Patient's blood work was unremarkable. Patient's urine showed no acute process. Patient's CT abdomen/pelvis showed new left ureteral stones just proximal to the ureterovesicular junction measuring up to 4mm. I explained my physical exam findings as well as all test results to the patient. I answered all questions asked by the patient. Patient received 3 doses of dilaudid over 4 hours, benadryl, pormethazine, tamsulosin, valium, and benadryl but the pain persisted. I spoke with the hospitalist team who agreed to admission. Patient verbalized agreement and understanding with this treatment plan and admission. Differential Diagnosis Differential Diagnoses: The differential diagnosis associated with the presentation includes Intractable abdominal pain Abdominal pain Kidney stone Anxiety Admission/Observation Consideration of admission/observation: Escalation of care including admission/observation considered Patient admitted. Consult Healthcare Provider Management of the patient was discussed with: Hospitalist (agreed to admission by the hospitalist team.) Lab Data [facility] Lab Attestation statement: I reviewed the patient's lab results. My interpretation of these results are in the [facility] Rationale portion of this note. 06/19/24 07:21 06/19/24 07:21 Labs: Lab Results 06/19/24 06/19/24 Range/Units 07:21 08:14 WBC 6.1 (4.8-10.8) X10*3/uL RBC 4.66 (4.60-5.80) X10*6/uL Hgb 14.9 (14.0-18.0) g/dl Hct 42.8 (42.0-52.0) % MCV 91.8 (80.0-98.0) fL MCH 32.0 (27.0-33.0) pg MCHC 34.8 (31.0-36.0) g/dl RDW 12.6 (11.0-16.0) % Plt Count 184 D (160-400) X10*3/uL MPV 10.8 (9.4-12.4) fL Immature Gran % (Auto) 0.2 (0.0-0.4) % Neut % (Auto) 52.2 (45-73) % Lymph % (Auto) 35.6 (20-40) % Nash % (Auto) 9.5 (2-11) % Eos % (Auto) 1.8 (0-4) % Baso % (Auto) 0.7 (0-2) % Lymph # (Auto) 2.2 (1.2-4.9) X10*3/uL Nash # (Auto) 0.6 (0.1-1.2) X10*3/uL Eos # (Auto) 0.1 (0.0-0.4) X10*3/uL Baso # (Auto) 0.0 (0.0-0.2) X10*3/uL Abs Immat Gran (auto) 0.01 (0.00-0.03) X10*3/uL Absolute Neuts (auto) 3.2 (2.0-8.3) x10*3/uL Absolute Nucleated RBC 0.000 (0.0-0.012) X10*3/uL Nucleated RBC % (auto) 0.0 (0.0-0.2) /100WBC Sodium 138 (135-145) mmol/L Potassium 3.9 (3.3-5.1) mmol/L Chloride 103 (96-108) mmol/L Carbon Dioxide 26 (22-29) mmol/L Anion Gap 13 (12-20) BUN 10 (9-16) mg/dL Creatinine 0.71 (0.5-1.4) mg/dL Estim Creat Clear Calc 114.2 Estimated GFR > 60 Random Glucose 94 (60-115) mg/dL Calcium 9.5 (8.4-10.2) mg/dL Magnesium 2.1 (1.6-2.6) mg/dL Total Bilirubin 1.9 H (0.0-1.0) mg/dL AST 31 (5-37) U/L ALT 46 H (0-40) U/L Alkaline Phosphatase 63 (39-117) U/L Total Creatine Kinase 98 (38-174) U/L Total Protein 8.0 (6.5-8.0) g/dL Albumin 4.3 (3.5-5.0) g/dL Urine Color Dark Yellow Urine Appearance Clear Urine pH 5.5 (5.0-9.0) Ur Specific Pilger 1.020 (1.005-1.025) Urine Protein Negative (Neg-Trace) mg/dL Urine Glucose (UA) Negative (Negative) mg/dL Urine Ketones Negative (Negative) mg/dL Urine Blood Negative (Negative) Urine Nitrite Negative (Negative) Ur Leukocyte Esterase Negative (Negative) Independent Interpretation I performed an independent interpretation of an: CT Scan Interpretation: My interpretation is in agreement with the radiologist's impression of this imaging study. L EXAMINATION: CT ABDOMEN AND PELVIS WITHOUT CONTRAST CLINICAL INFORMATION: Right flank pain. COMPARISON: Multiple priors, most recent CT abdomen/pelvis dated 06/05/2024. TECHNIQUE: Multidetector volumetric imaging was performed from the superior aspect of the liver through the pubic symphysis. Sagittal and coronal reformatted images were obtained on the technologist's workstation. This CT examination was performed using dose optimization techniques as appropriate, variously including the following: *Automated exposure control *Adjustment of mA and/or kV according to patient size (this includes techniques or standardized protocols for targeted exams where dose is matched to indication/reason for exam; i.e. extremities or head) *Use of iterative reconstruction technique DLP: 440 mGy-cm FINDINGS: LUNG BASES: The visualized lung bases are unremarkable. LIVER, GALLBLADDER, AND BILIARY TREE: The liver is normal in size, shape, and attenuation. Tiny parenchymal calcifications are redemonstrated. No new focal hepatic lesion or biliary ductal dilatation is present. Status post cholecystectomy. PANCREAS: Unremarkable. SPLEEN: Unremarkable. ADRENAL GLANDS: Unremarkable. KIDNEYS AND URETERS: The kidneys are normal in size, shape, and attenuation. Multiple bilateral renal stones/calcifications with the largest in the lower pole of the right kidney measuring up to 0.5 cm and located 8.8 cm from the posterior axillary line. Distal left ureteral stones just proximal to the ureterovesicular junction measuring up to 0.4 and 0.2 cm, new when compared to the prior CT. Minimal left-sided hydroureter without significant hydronephrosis. BLADDER: Unremarkable. GASTROINTESTINAL TRACT: Unremarkable rectosigmoid anastomosis. Additional unremarkable right lower quadrant bowel anastomosis. No small or large bowel obstruction. No bowel wall thickening or inflammatory change. PERITONEAL CAVITY: No intra-abdominal free air or free fluid. Central mesenteric surgical clips are redemonstrated. ABDOMINAL WALL: Small, fat-containing periumbilical hernia. LYMPH NODES: No significant lymphadenopathy. VASCULAR: Unremarkable. PELVIC VISCERA: The prostate and seminal vesicles are unremarkable. OSSEOUS STRUCTURES: Unremarkable. CT/CT abdomen pelvis wo IV con IMPRESSION: 1. Distal left ureteral stones just proximal to the ureterovesicular junction measuring up to 0.4 and 0.2 cm, new when compared to the prior CT. Minimal left- sided hydroureter without significant hydronephrosis. Multiple bilateral renal stones/calcifications. 2. Unremarkable bowel anastomoses. No small or large bowel obstruction. No bowel wall thickening or inflammatory change. 3. No new intra-abdominal mass, lymphadenopathy, or ascites. Fleischner guidelines were followed. Electronically signed by: Andrew Ortega MD 06/19/2024 10:18 AM [facility] Dictated By: Andrew Ortega MD Signed By: Electronically signed by Andrew Ortega MD 06/19/24 1018 Radiology Impression Discussion of test interpretation with radiology: I have reviewed the radiologist's reading. Critical Care Time Critical Care Time Critical Care Time: Yes Total Critical Care Time: 41 Attestation: I spent 41 minutes of Critical Care Time with this patient. This does not include time spent on separately reported billable procedures. Discharge Plan Discharge Clinical Impression: Intractable abdominal pain, Kidney stone, Nausea & vomiting Patient Disposition: Admitted As Inpatient Print Language: Yemeni
[2024-06-19] MEDS: diphenhydrAMINE HCL 50 MG/ML VIAL 25 MG IVPUSH ×2 (07:25→22:39)
[2024-06-19] MEDS: HYDROmorphone HCl 1 MG/ML SYRINGE IVPUSH ×2 (07:26→10:39)
[2024-06-19 07:28] LABS: MANUAL DIFF FLAG NO
[2024-06-19 07:29] LABS: Basophils Percent Auto 0.7 % (0-2); Eosinophils Absolute Auto 0.1 X10*3/uL (0.0-0.4); Eosinophils Percent Auto 1.8 % (0-4); Hematocrit 42.8 % (42.0-52.0); Hemoglobin 14.9 g/dl (14.0-18.0); Imm Gran Abs Auto 0.01 X10*3/uL (0.00-0.03); Imm Gran Pct Auto 0.2 % (0.0-0.4); Lymphocytes Absolute Auto 2.2 X10*3/uL (1.2-4.9); Lymphocytes Percent Auto 35.6 % (20-40); Mean Corpuscular HGB Conc 34.8 g/dl (31.0-36.0); Mean Corpuscular Volume 91.8 fL (80.0-98.0); Mean Platelet Volume 10.8 fL (9.4-12.4); Monocytes Absolute Auto 0.6 X10*3/uL (0.1-1.2); Monocytes Percent Auto 9.5 % (2-11); Neutrophils Absolute Auto 3.2 x10*3/uL (2.0-8.3); Neutrophils Percent Auto 52.2 % (45-73); Platelet Count 184 X10*3/uL (160-400); Red Blood Count 4.66 X10*6/uL (4.60-5.80); Red Cell Distribution Width 12.6 % (11.0-16.0); White Blood Count 6.1 X10*3/uL (4.8-10.8)
[2024-06-19 07:45] LABS: Alanine Aminotransferase 46 U/L (0-40); Albumin Level 4.3 g/dL (3.5-5.0); Alkaline Phosphatase 63 U/L (39-117); Anion Gap 13 (12-20); Aspartate Amino Transferase 31 U/L (5-37); Bilirubin Total 1.9 mg/dL (0.0-1.0); Blood Urea Nitrogen 10 mg/dL (9-16); Calcium 9.5 mg/dL (8.4-10.2); Carbon Dioxide 26 mmol/L (22-29); Chloride 103 mmol/L (96-108); Creatinine Clr Calc Pharmacy 114.2; Estimated Glomerular Filt Rate > 60; Glucose Random 94 mg/dL (60-115); Magnesium 2.1 mg/dL (1.6-2.6); Potassium 3.9 mmol/L (3.3-5.1); Sodium 138 mmol/L (135-145)
[2024-06-19 08:21] LABS: Appearance Urine Clear; Color Urine Dark Yellow; Glucose Urine UA Negative (Negative); Leukocyte Esterase Urine Negative (Negative); Nitrite Urine Negative (Negative); PH 5.5 (5.0-9.0); Urine Blood Negative (Negative); Urine Ketones Negative (Negative); Urine Protein Negative (Neg-Trace)
[2024-06-19] MEDS: diazePAM 10 MG/2 ML CARTRIDGE 2.5 MG IVPUSH ×2 (08:42→13:08)
[2024-06-19] MEDS: HYDROmorphone HCl 0.5 MG/0.5 ML SYRINGE IVPUSH (08:46)
--- NOTE | 2024-06-19 08:46 | PC.NURSE ---
Pt states initial med interventions decreased pain to 5/10 however pain back to / with vomiting. Pt medicated as charted with further meds. Pt appears restless. VSS. Awaits labs and CT imaging results at this time.
[2024-06-19] MEDS: 0.9 % Sodium Chloride 1,000 ML 999 ML IV (09:03)
[2024-06-19] MEDS: Promethazine HCL 25 MG/ML VIAL 12.5 MG IM (10:38)
[2024-06-19] MEDS: predniSONE 20 MG TABLET PO (10:40)
[2024-06-19] MEDS: Tamsulosin HCL 0.4 MG CAPSULE PO (10:40)
--- NOTE | 2024-06-19 13:03 | PC.NURSE ---
Pt noted with pain relief shortly after pain med administered however pain returns to 03/21, plan for admission
--- NOTE | 2024-06-19 13:17 | PHA.MEDREC ---
Addendum entered by Dax Brown 06/19/24 13:33: reviewed Original Note: Pharmacy Consult ? Medication Reconciliation Pharmacy has completed the medication reconciliation. Spoke to patient to confirm med list. Patient states he is no longer taking Colace 100 mg, Magnesium oxide 400 mg Miralax. patent confirmed Vitamin B-12 inj are once a month. last dose was 06/11/24, Humira CF pen is every , last dose06/15/24.
--- NOTE | 2024-06-19 14:05 | P.HPHOSP_ITS ---
History of Present Illness Date of Service: 06/19/24 Chief Complaint: left flank, left lower abdominal pain 43 yo male with PMH of Crohn's, IBD, CYDNEY (no longer requiring CPAP), anxiety, and migraines who presents with intractable left flank pain, left lower suprapubic pain, and relative N/V since last night/yesterday afternoon. The pain started suddenly yesterday afternoon during rastafari, he states it has been constant and worsening since then. Difficulty with urination starting overnight, stating hard to start stream but able to empty fully. Denies crohn's type abdominal pain, difficulty with stool, abdominal bulging or hernias, hematuria, discharge, itching or rash, hematchezia, fevers, chills, changes to appetite, CP, palpitations or diaphoresis, denies substance use or abuse. Reports monogamy with - denies STI risk. Review of Systems 2 Review of Systems: Yes all other systems are reviewed and are negative [facility] Medical History Cervicalgia Migraine Anxiety Crohn's disease IBD (inflammatory bowel disease) Partial small bowel obstruction Family History Mother HTN (hypertension) Surgical History History of colostomy reversal S/P colostomy History of surgery on arm Hx of colonoscopy History of esophagogastroduodenoscopy (EGD) Social History Household Members: Spouse Housing: House Do you presently have visiting nurse or other home services: No Alcohol intake: never Patient Tobacco Use Status: Never used Tobacco Smoked in Last 30 Days: No Use of substances other than those prescribed or required for medical reasons: No Currently Displaying Signs/Symptoms of Drug Intoxication Withdrawal: No Have you been hit, kicked, punched, or otherwise hurt by someone within the past year? If so, by whom?: No Do you feel safe in your current relationship?: Yes Is there a partner from a previous relationship who is making you feel unsafe now?: No Are you made to feel afraid or neglected: No [employer]ab[employer] Healthcare Practices: mormon Advance Directives: No Advance Directives Information Provided: Yes Do you have a plan to hurt others: No Plan Recently lost weight without trying: Yes How much weight loss: 24-33 pounds Eating poorly because of decreased appetite: No Nutrition screen score: 5 Nutrition Risks: No Nutritional Risk Poor oral hygiene: No service: No Current occupational status: disabled Meds Allergies Allergy/AdvReac Type Severity Reaction Status Date / Time ondansetron [Ondansetron] Allergy Mild HIVES Verified 06/19/24 07:03 Sulfa (Sulfonamide Allergy Mild UNKNOWN Verified 06/19/24 07:03 Antibiotics) ketorolac Allergy Unknown Unknown Verified 06/19/24 07:03 meperidine [Demerol] Allergy Unknown Unknown Verified 06/19/24 07:03 metoclopramide [Reglan] Allergy Unknown Unknown Verified 06/19/24 07:03 morphine [Morphine] Allergy Unknown RASH Verified 06/19/24 07:03 haloperidol [From Haldol] Allergy Anaphylaxis Verified 06/19/24 07:03 ketamine Allergy Unknown Verified 06/19/24 07:03 From REGLAN Allergy Mild PT UNSURE Uncoded 02/15/24 07:09 BUT STATES HE IS ALLERGIC Compro Allergy Unknown Unknown Uncoded 02/15/24 07:09 From COMPAZINE Allergy Unknown ITCHING Uncoded 02/15/24 07:09 From Demerol Allergy Unknown ITCHY HIVES Uncoded 02/15/24 07:09 From Toradol Allergy Unknown UNK Uncoded 02/15/24 07:09 Active Medications: Current Medications Hydromorphone HCl (Hydromorphone Hcl 2 Mg/Ml Vial) 2 mg IVPUSH Q4H PRN; Protocol PRN Reason: Pain, Severe (Pain Scale 7-10) Tamsulosin HCl (Tamsulosin Hcl 0.4 Mg Capsule) 0.4 mg PO DAILY DULCE MARIA Home Medications ?Medication ?Instructions ?Recorded ?Confirmed ?Last Taken ?Type adalimumab 40 mg/0.4 mL 40 mg subcut TH@0900 08/19/21 06/19/24 06/15/24 History subcutaneous pen kit (Humira(CF) Pen) clonazepam 1 mg tablet 1 tab PO BID PRN Anxiety 08/19/21 06/19/24 06/19/24 History loratadine 10 mg tablet 1 tab PO DAILY PRN Allergy Symptoms 08/19/21 06/19/24 06/19/24 History omeprazole 20 mg capsule,delayed 20 mg PO DAILY@0630 08/19/21 06/19/24 06/19/24 History release zolpidem 10 mg tablet 1 tab PO BEDTIME 08/19/21 06/19/24 06/19/24 History multivitamin with folic acid 400 1 tab PO DAILY 06/11/22 06/19/24 06/19/24 History mcg tablet (Daily-Davis (with folic acid)) cyanocobalamin (vitamin B-12) 1,000 mcg IM QMONTH 06/19/24 06/19/24 06/11/24 History 1,000 mcg/mL injection solution ferrous gluconate 324 mg (38 mg 324 mg PO MOWEFR 06/19/24 06/19/24 06/16/24 History iron) tablet Physical Exam 2 Vital Signs and Narrative: Vital Signs: Last Vital Signs Temp 98 F 06/19/24 12:25 Pulse 61 06/19/24 12:25 Resp 16 06/19/24 12:25 BP 109/75 06/19/24 12:25 Pulse Ox 96 06/19/24 12:25 O2 Del Method Room Air 06/19/24 12:25 BMI result Body Mass Index 25.4 Const: General: cooperative, alert, awake and acute distress (writhing from pain) other Nutritional Appearance: thin Orientation/consciousness: p atient oriented x3 Limitations: no limitations HEENT: Head: Yes normal to inspection Ears: hearing grossly normal bilaterally General nose exam: Normal external nose present Mouth: Normal oral and palatal mucosa present Eyes: General: appearance normal, both eyes and all related structures C onjunctivae: conjunctivae normal Sclerae: sclerae normal Pupils: Equal, round and reactive pupils present EOM: EOMs intact bilaterally Neck: Yes normal visual inspection Thyroid: Thyroid normal Lymphatic: no lymphadenopathy noted Resp: Effort & Inspection: normal respiratory effort Auscultation: clear to auscultation bilaterally Cardio: Jugular venous distension: no JVD Rate: regular rate Rhythm: r egular rhythm Heart sounds: S1 normal heart sound present and S2 normal heart sound present Peripheral pulses: dorsalis pedis present GI: Inspection: Yes normal to inspection Palpation (GI): Tenderness to palpation present (GI) in the LLQ Auscultation: normal bowel sounds : General: Yes CVA tenderness on the right and on the left (minimally to the left ) Back/Spine/Pelvis: Back: CVA tenderness Skin: General skin exam: no rashes or lesions noted Trauma: no lacerations or abrasions Wounds: no wounds Neuro: General: patient oriented x3 Cranial nerves: Yes CN's II-XII intact bilaterally, Yes Equal, round and reactive pupils present and Yes Bilaterally intact EOM present Cognition (Neuro): normal cognition Extrem: General: Yes normal to inspection, Yes full ROM and Yes capillary refill normal Psych: Appearance: grossly normal Mental Status: mental status grossly normal Speech and movement: Normal speech and movement present Affect: n ormal affect Attitude: cooperative Results Labs 06/20/24 05:40 06/20/24 05:40 Labs: Laboratory Results - last 24 hr 06/19/24 06/19/24 07:21 08:14 MCV 91.8 MCH 32.0 MCHC 34.8 RDW 12.6 Plt Count 184 D MPV 10.8 Immature Gran % (Auto) 0.2 Neut % (Auto) 52.2 Lymph % (Auto) 35.6 [place] % (Auto) 9.5 Eos % (Auto) 1.8 Baso % (Auto) 0.7 Lymph # (Auto) 2.2 [place] # (Auto) 0.6 Eos # (Auto) 0.1 Baso # (Auto) 0.0 Abs Immat Gran (auto) 0.01 Absolute Neuts (auto) 3.2 Absolute Nucleated RBC 0.000 Nucleated RBC % (auto) 0.0 Anion Gap 13 Estim Creat Clear Calc 114.2 Estimated GFR > 60 Random Glucose 94 Calcium 9.5 Magnesium 2.1 Total Bilirubin 1.9 H AST 31 ALT 46 H Alkaline Phosphatase 63 Total Creatine Kinase 98 Total Protein 8.0 Albumin 4.3 Urine Color Dark Yellow Urine Appearance Clear Urine pH 5.5 Ur Specific [place] 1.020 Urine Protein Negative Urine Glucose (UA) Negative Urine Ketones Negative Urine Blood Negative Urine Nitrite Negative Ur Leukocyte Esterase Negative Imaging Radiologist's Impressions: Impressions Abdomen/Pelvis CT 06/19/24 07:42 IMPRESSION: 1. Distal left ureteral stones just proximal to the ureterovesicular junction measuring up to 0.4 and 0.2 cm, new when compared to the prior CT. Minimal left-sided hydroureter without significant hydronephrosis. Multiple bilateral renal stones/calcifications. 2. Unremarkable bowel anastomoses. No small or large bowel obstruction. No bowel wall thickening or inflammatory change. 3. No new intra-abdominal mass, lymphadenopathy, or ascites. Fleischner guidelines were followed. Electronically signed by: Andrew Ortega MD 06/19/2024 10:18 AM [facility] [place] and Plan (1) Intractable abdominal pain: Status: Acute Plan 43 yo male with PMH significant for crohn's, IBD, CYDNEY (no longer requiring CPAP), anxiety, and migraines who presents with intractable left flank, left lower suprapubic pain, and relative N/V since yesterday. Left flank/left suprapubic, R CVA pain secondary to bilateral renal stones CT A/P showed 1. Distal left ureteral stones just proximal to the ureterovesicular junction measuring up to 0.4 and 0.2 cm, new. Minimal left- sided hydroureter without significant hydronephrosis. Multiple bilateral renal stones/calcifications. urology consulted pain management, antiemetics flomax clear liquid diet for now Crohn's, IBD CT A/P Unremarkable bowel anastomoses. No small or large bowel obstruction. no current exacerbation Hold Humira Anxiety situational, denies current exacerbation no interventions required at this time continue home medications CYDNEY per pt report resolved, not on cpap migraines no current exacerbation DVT prophylaxis with lovenox full code Quality Stroke Does the patient have a stroke diagnosis?: No VTE Prior VTE?: No VTE Risk Level:: Medical - moderate - high VTE Device Contraindication: Treatment Not Indicated VTE Drug Contraindication: N/A - Med Ordered
[2024-06-19] MEDS: HYDROmorphone HCl 2 MG/ML VIAL IVPUSH ×3 (14:32→21:50)
[2024-06-19] MEDS: 0.9 % Sodium Chloride Flush 3 ML SYRINGE IVFLUSH ×2 (14:34→23:57)
[2024-06-19] MEDS: LORazepam 2 MG/ML VIAL 1 MG IVPUSH (17:22)
[2024-06-19] MEDS: oxyCODONE HCl Immed Release 5 MG TABLET 10 MG PO (17:40)
[2024-06-19] MEDS: Zolpidem Tartrate 5 MG TABLET 10 MG PO (21:50)
[2024-06-19] MEDS: Metoclopramide HCl 10 MG/2 ML VIAL IVPUSH (22:39)
[2024-06-20] MEDS: LORazepam 2 MG/ML VIAL 1 MG IVPUSH (01:26)
[2024-06-20] MEDS: HYDROmorphone HCl 2 MG/ML VIAL IVPUSH ×7 (01:26→21:42)
[2024-06-20 04:24] VITALS: BP 110/72; PULSE 73; RESP 18; TEMP 36.4; O2SAT 99
[2024-06-20] MEDS: oxyCODONE HCl Immed Release 5 MG TABLET 10 MG PO ×4 (05:42→23:25)
[2024-06-20] MEDS: Omeprazole 20 MG CAPSULE.DR PO (05:43)
[2024-06-20 07:13] VITALS: BP 118/79; PULSE 69; RESP 16; TEMP 36.2; O2SAT 97
[2024-06-20] MEDS: Multivitamin TABLET 1 TAB PO (07:37)
[2024-06-20] MEDS: Tamsulosin HCL 0.4 MG CAPSULE PO (07:37)
[2024-06-20] MEDS: 0.9 % Sodium Chloride Flush 3 ML SYRINGE IVFLUSH ×3 (07:38→23:26)
[2024-06-20 08:01] LABS: MANUAL DIFF FLAG NO
[2024-06-20 08:08] LABS: Basophils Percent Auto 0.3 % (0-2); Eosinophils Absolute Auto 0.1 X10*3/uL (0.0-0.4); Eosinophils Percent Auto 0.9 % (0-4); Hemoglobin 14.7 g/dl (14.0-18.0); Imm Gran Abs Auto 0.02 X10*3/uL (0.00-0.03); Imm Gran Pct Auto 0.3 % (0.0-0.4); Lymphocytes Absolute Auto 1.6 X10*3/uL (1.2-4.9); Lymphocytes Percent Auto 23.7 % (20-40); Mean Corpuscular Hemoglobin 32.3 pg (27.0-33.0); Mean Corpuscular Volume 92.3 fL (80.0-98.0); Mean Platelet Volume 10.9 fL (9.4-12.4); Monocytes Absolute Auto 0.5 X10*3/uL (0.1-1.2); Monocytes Percent Auto 7.9 % (2-11); Neutrophils Absolute Auto 4.6 x10*3/uL (2.0-8.3); Neutrophils Percent Auto 66.9 % (45-73); Platelet Count 160 X10*3/uL (160-400); Red Blood Count 4.55 X10*6/uL (4.60-5.80); Red Cell Distribution Width 12.5 % (11.0-16.0); White Blood Count 6.8 X10*3/uL (4.8-10.8)
[2024-06-20 08:43] LABS: Anion Gap 15 (12-20); Blood Urea Nitrogen 8 mg/dL (9-16); Calcium 9.5 mg/dL (8.4-10.2); Carbon Dioxide 29 mmol/L (22-29); Chloride 100 mmol/L (96-108); Creatinine Clr Calc Pharmacy 109.6; Estimated Glomerular Filt Rate > 60; Glucose Random 85 mg/dL (60-115); Sodium 140 mmol/L (135-145)
--- NOTE | 2024-06-20 09:34 | P.PNIM_ITS ---
Subjective Subjective Date of Service: 06/20/24 Interval History: Seen for follow up of left flank/left suprapubic, R CVA pain secondary to bilateral renal stones Reports pain is improving, but still requires pain medicine Review of Systems Review of Systems: Yes all other systems are reviewed and are negative Genitourinary Genitourinary: Reports flank pain penile itching, more present during urination Physical Exam 2 Vital Signs: Vital Signs: Last Vital Signs Temp 97.2 F 06/20/24 07:13 Pulse 69 06/20/24 07:13 Resp 16 06/20/24 07:13 BP 118/79 06/20/24 07:13 Pulse Ox 97 06/20/24 07:13 O2 Del Method Room Air 06/20/24 07:13 BMI result Body Mass Index 25.7 Const: General: cooperative, no acute distress, alert and awake Nutritional Appearance: thin Orientation/consciousness: patient oriented x3 L imitations: no limitations Resp: Effort & Inspection: normal respiratory effort Auscultation: clear to auscultation bilaterally Cardio: Jugular venous distension: no JVD Palpation: normal PMI Rate: r egular rate Rhythm: regular rhythm Heart sounds: S1 normal heart sound present and S2 normal heart sound present GI: Inspection: Yes normal to inspection Auscultation: normal bowel sounds Neuro: General: patient oriented x3 Objective Data Active Medications Acetaminophen (Acetaminophen 325 Mg Tablet) 650 mg PO Q6H PRN PRN Reason: Pain, Mild (Pain Scale 1-3), fever or headache Calcium Carbonate (Calcium Carbonate 750 Mg Tab.Chew) 750 mg PO Q4H PRN PRN Reason: Heartburn Diphenhydramine HCl (Diphenhydramine Hcl 50 Mg/Ml Vial) 25 mg IVPUSH Q6H PRN PRN Reason: Allergic Symptoms Last Admin: 06/19/24 22:39 Dose: 25 mg Documented By: KOBI Enoxaparin Sodium (Enoxaparin Sodium 40 Mg/0.4 Ml Syringe) 40 mg SUBCUT Q24H DULCE MARIA Last Admin: 06/19/24 14:32 Dose: Not Given Documented By: MARQUISE Non-Admin Reason: Patient Refused Hydromorphone HCl (Hydromorphone Hcl 2 Mg/Ml Vial) 2 mg IVPUSH Q3H PRN; Protocol PRN Reason: Pain, Severe (Pain Scale 7-10) Last Admin: 06/20/24 07:37 Dose: 2 mg Documented By: DRE Loratadine (Loratadine 10 Mg Tablet) 10 mg PO DAILY PRN PRN Reason: Allergy Symptoms Lorazepam (Lorazepam 2 Mg/Ml Vial) 1 mg IVPUSH Q6H PRN PRN Reason: Anxiety Last Admin: 06/20/24 01:26 Dose: 1 mg Documented By: KOBI Magnesium Hydroxide (Milk Of Magnesia 30 Ml Oral.Susp) 30 ml PO DAILY PRN PRN Reason: Constipation Melatonin (Melatonin 3 Mg Tablet) 6 mg PO BEDTIME PRN PRN Reason: Insomnia Metoclopramide HCl (Metoclopramide Hcl 10 Mg/2 Ml Vial) 10 mg IVPUSH Q6H PRN PRN Reason: Nausea and Vomiting Last Admin: 06/19/24 22:39 Dose: 10 mg Documented By: KOBI Multivitamins/Vitamin C (Multivitamin Tablet) 1 tab PO DAILY [facility] Last Admin: 06/20/24 07:37 Dose: 1 tab Documented By: DRE Omeprazole (Omeprazole 20 Mg Capsule.Dr) 20 mg PO DAILY@0630 [facility] Last Admin: 06/20/24 05:43 Dose: 20 mg Documented By: SATYA Oxycodone HCl (Oxycodone Hcl Immed Release 5 Mg Tablet) 10 mg PO Q4H PRN PRN Reason: Pain, Moderate(Pain Scale 4-6) Last Admin: 06/20/24 05:42 Dose: 10 mg Documented By: SATYA Sodium Chloride (0.9 % Sodium Chloride Flush 3 Ml Syringe) 3 ml IVFLUSH QSHIFT [facility] Last Admin: 06/20/24 07:38 Dose: 3 ml Documented By: DRE Tamsulosin HCl (Tamsulosin Hcl 0.4 Mg Capsule) 0.4 mg PO DAILY [facility] Last Admin: 06/20/24 07:37 Dose: 0.4 mg Documented By: DRE Zolpidem Tartrate (Zolpidem Tartrate 5 Mg Tablet) 10 mg PO BEDTIME [facility] Last Admin: 06/19/24 21:50 Dose: 10 mg Documented By: KOBI Labs 06/20/24 05:40 06/20/24 05:40 Labs: Laboratory Results - last 24 hr 06/20/24 05:40 MCV 92.3 MCH 32.3 MCHC 35.0 RDW 12.5 Plt Count 160 MPV 10.9 Immature Gran % (Auto) 0.3 Neut % (Auto) 66.9 Lymph % (Auto) 23.7 [place] % (Auto) 7.9 Eos % (Auto) 0.9 Baso % (Auto) 0.3 Lymph # (Auto) 1.6 [place] # (Auto) 0.5 Eos # (Auto) 0.1 Baso # (Auto) 0.0 Abs Immat Gran (auto) 0.02 Absolute Neuts (auto) 4.6 Absolute Nucleated RBC 0.000 Nucleated RBC % (auto) 0.0 Anion Gap 15 Estim Creat Clear Calc 109.6 Estimated GFR > 60 Random Glucose 85 Calcium 9.5 Assessment and Plan (1) Nausea & vomiting: Status: Acute Plan 43 yo male with PMH significant for crohn's, IBD, CYDNEY (no longer requiring CPAP), anxiety, and migraines here with left flank/left suprapubic, and R CVA pain secondary to bilateral renal stones. Left flank/left suprapubic, R CVA pain secondary to bilateral renal stones urology consult pending pain improving, continue with PRN pain management, antiemetics flomax diet advanced Crohn's, IBD no current exacerbation Hold Humira for now Anxiety situational, PRN anxiolytics continue home medications CYDNEY per pt report resolved, not on cpap migraines no current exacerbation Code status: Full DVT: Lovenox Quality Stroke Does the patient have a stroke diagnosis?: No VTE Prior VTE?: No VTE Risk Level:: Medical - moderate - high VTE Device Contraindication: Treatment Not Indicated VTE Drug Contraindication: N/A - Med Ordered
--- NOTE | 2024-06-20 10:54 | MHC.CM.PN ---
PT IS INDEPEDENT LIVES W/HIS HAS OWN RIDE HOME
[2024-06-20 15:29] VITALS: BP 117/74; PULSE 86; RESP 18; TEMP 36; O2SAT 95
[2024-06-20] MEDS: Metoclopramide HCl 10 MG/2 ML VIAL IVPUSH (15:44)
[2024-06-20] MEDS: diphenhydrAMINE HCL 50 MG/ML VIAL 25 MG IVPUSH (15:44)
--- NOTE | 2024-06-20 16:13 | P.CNUR_ITS ---
History of Present Illness Consult details Consult date: 06/20/24 Narrative: Jony is seen due to abdominal pain CTAP, bilateral small renal stones, left distal ureteral stones with mild hydro Review of Systems 2 Review of Systems: Yes all other systems are reviewed and are negative Constitutional: Constitutional: Reports no additional constitutional complaints Eyes: Eyes: Reports no additional eye complaints ENT: Reports system reviewed and no additional complaints, except as documented Cardiovascular: Cardiovascular: Reports no additional cardiovascular complaints Respiratory: Respiratory: Reports no additional respiratory complaints Gastrointestinal: Gastrointestinal: Reports no additional gastrointestinal complaints Genitourinary: Genitourinary: Reports as per HPI Musculoskeletal: Musculoskeletal: Reports no additional musculoskeletal complaints Integumentary/Breasts: Skin/Breast: Reports system reviewed and no additional complaints, except as docu Neurologic: Reports system reviewed and no additional complaints, except as documented Psychiatric: Psychiatric: Reports no additional psychiatric complaints Endocrine: Endocrine: Reports no additional endocrine complaints Hematologic/Lymphatic: Hematologic/Lymphatic: Reports no additional hematologic/lymphatic complaints Allergic/Immunologic: Allergic/Immunologic: Reports no additional allergic/immunologic complaints PMFSH Past Medical History Medical History Cervicalgia Migraine Anxiety Crohn's disease IBD (inflammatory bowel disease) Partial small bowel obstruction Family History Family History Mother HTN (hypertension) Surgical History Surgical History History of colostomy reversal S/P colostomy History of surgery on arm Hx of colonoscopy History of esophagogastroduodenoscopy (EGD) Social History Social History Household Members: Spouse Housing: House Do you presently have visiting nurse or other home services: No Alcohol intake: never Patient Tobacco Use Status: Never used Tobacco Smoked in Last 30 Days: No Use of substances other than those prescribed or required for medical reasons: No Currently Displaying Signs/Symptoms of Drug Intoxication Withdrawal: No Have you been hit, kicked, punched, or otherwise hurt by someone within the past year? If so, by whom?: No Do you feel safe in your current relationship?: Yes Is there a partner from a previous relationship who is making you feel unsafe now?: No Are you made to feel afraid or neglected: No Religion Healthcare Practices: zoroastrian Advance Directives: No Advance Directives Information Provided: Yes Do you have a plan to hurt others: No Plan Recently lost weight without trying: Yes How much weight loss: 24-33 pounds Eating poorly because of decreased appetite: No Nutrition screen score: 5 Nutrition Risks: No Nutritional Risk Poor oral hygiene: No service: No Current occupational status: disabled Meds Allergies Allergy/AdvReac Type Severity Reaction Status Date / Time ondansetron [Ondansetron] Allergy Mild HIVES Verified 06/19/24 07:03 Sulfa (Sulfonamide Allergy Mild UNKNOWN Verified 06/19/24 07:03 Antibiotics) ketorolac Allergy Unknown Unknown Verified 06/19/24 07:03 meperidine [Demerol] Allergy Unknown Unknown Verified 06/19/24 07:03 metoclopramide [Reglan] Allergy Unknown Unknown Verified 06/19/24 07:03 morphine [Morphine] Allergy Unknown RASH Verified 06/19/24 07:03 haloperidol [From Haldol] Allergy Anaphylaxis Verified 06/19/24 07:03 ketamine Allergy Unknown Verified 06/19/24 07:03 From REGLAN Allergy Mild PT UNSURE Uncoded 02/15/24 07:09 BUT STATES HE IS ALLERGIC Compro Allergy Unknown Unknown Uncoded 02/15/24 07:09 From COMPAZINE Allergy Unknown ITCHING Uncoded 02/15/24 07:09 From Demerol Allergy Unknown ITCHY HIVES Uncoded 02/15/24 07:09 From Toradol Allergy Unknown UNK Uncoded 02/15/24 07:09 Active Medications: Current Medications Acetaminophen (Acetaminophen 325 Mg Tablet) 650 mg PO Q6H PRN PRN Reason: Pain, Mild (Pain Scale 1-3), fever or headache Calcium Carbonate (Calcium Carbonate 750 Mg Tab.Chew) 750 mg PO Q4H PRN PRN Reason: Heartburn Diphenhydramine HCl (Diphenhydramine Hcl 50 Mg/Ml Vial) 25 mg IVPUSH Q6H PRN PRN Reason: Allergic Symptoms Last Admin: 06/20/24 15:44 Dose: 25 mg Enoxaparin Sodium (Enoxaparin Sodium 40 Mg/0.4 Ml Syringe) 40 mg SUBCUT Q24H DULCE MARIA Last Admin: 06/20/24 15:25 Dose: Not Given Hydromorphone HCl (Hydromorphone Hcl 2 Mg/Ml Vial) 2 mg IVPUSH Q3H PRN; Protocol PRN Reason: Pain, Severe (Pain Scale 7-10) Last Admin: 06/20/24 13:46 Dose: 2 mg Loratadine (Loratadine 10 Mg Tablet) 10 mg PO DAILY PRN PRN Reason: Allergy Symptoms Lorazepam (Lorazepam 2 Mg/Ml Vial) 1 mg IVPUSH Q6H PRN PRN Reason: Anxiety Last Admin: 06/20/24 01:26 Dose: 1 mg Magnesium Hydroxide (Milk Of Magnesia 30 Ml Oral.Susp) 30 ml PO DAILY PRN PRN Reason: Constipation Melatonin (Melatonin 3 Mg Tablet) 6 mg PO BEDTIME PRN PRN Reason: Insomnia Metoclopramide HCl (Metoclopramide Hcl 10 Mg/2 Ml Vial) 10 mg IVPUSH Q6H PRN PRN Reason: Nausea and Vomiting Last Admin: 06/20/24 15:44 Dose: 10 mg Multivitamins/Vitamin C (Multivitamin Tablet) 1 tab PO DAILY [facility] Last Admin: 06/20/24 07:37 Dose: 1 tab Omeprazole (Omeprazole 20 Mg Capsule.Dr) 20 mg PO DAILY@0630 [facility] Last Admin: 06/20/24 05:43 Dose: 20 mg Oxycodone HCl (Oxycodone Hcl Immed Release 5 Mg Tablet) 10 mg PO Q4H PRN PRN Reason: Pain, Moderate(Pain Scale 4-6) Last Admin: 06/20/24 09:38 Dose: 10 mg Sodium Chloride (0.9 % Sodium Chloride Flush 3 Ml Syringe) 3 ml IVFLUSH QSHIFT [facility] Last Admin: 06/20/24 07:38 Dose: 3 ml Tamsulosin HCl (Tamsulosin Hcl 0.4 Mg Capsule) 0.4 mg PO DAILY [facility] Last Admin: 06/20/24 07:37 Dose: 0.4 mg Zolpidem Tartrate (Zolpidem Tartrate 5 Mg Tablet) 10 mg PO BEDTIME [facility] Last Admin: 06/19/24 21:50 Dose: 10 mg Home Medications ?Medication ?Instructions ?Recorded ?Confirmed ?Last Taken ?Type adalimumab 40 mg/0.4 mL 40 mg subcut TH@0900 08/19/21 06/19/2424 History subcutaneous pen kit (Humira(CF) Pen) clonazepam 1 mg tablet 1 tab PO BID PRN Anxiety 08/19/21 06/19/24 06/19/24 History loratadine 10 mg tablet 1 tab PO DAILY PRN Allergy Symptoms 08/19/21 06/19/24 06/19/24 History omeprazole 20 mg capsule,delayed 20 mg PO DAILY@0630 08/19/21 06/19/24 06/19/24 History release zolpidem 10 mg tablet 1 tab PO BEDTIME 08/19/21 06/19/24 06/19/24 History multivitamin with folic acid 400 1 tab PO DAILY 06/11/22 06/19/24 06/19/24 History mcg tablet (Daily-Davis (with folic acid)) cyanocobalamin (vitamin B-12) 1,000 mcg IM QMONTH 06/19/24 06/19/24 06/11/24 History 1,000 mcg/mL injection solution ferrous gluconate 324 mg (38 mg 324 mg PO MOWEFR 06/19/24 06/19/24 06/16/24 History iron) tablet Physical Exam 2 Vital Signs: Vital Signs: Last Vital Signs Temp 96.8 F 06/20/24 15:29 Pulse 86 06/20/24 15:29 Resp 18 06/20/24 15:29 BP 117/74 06/20/24 15:29 Pulse Ox 95 06/20/24 15:29 O2 Del Method Room Air 06/20/24 15:29 BMI result Body Mass Index 25.7 Const: General: healthy appearing, no acute distress and well developed O rientation/consciousness: patient oriented x3 HEENT: Head: Yes normocephalic and Yes atraumatic Eyes: Conjunctivae: conjunctivae normal Neck: Neck: Yes normal visual inspection Chest: Chest palpation & inspection: normal inspection of the chest Resp: Effort & Inspection: normal respiratory effort Cardio: Rate: regular rate GI: Inspection: Yes normal to inspection Palpation (GI): Soft to palpation : Other: no CVAT ellicited at this time Skin: General skin exam: no rashes or lesions noted Neuro: General: patient oriented x3 Extrem: General: No pedal edema Psych: Appearance: grossly normal Affect: normal affect Results Labs 06/20/24 05:40 06/20/24 05:40 Labs: Abnormal lab results 06/20/24 Range/Units 05:40 RBC 4.55 L (4.60-5.80) X10*6/uL BUN 8 L (9-16) mg/dL Short CBC 06/20/24 Range/Units 05:40 WBC 6.8 (4.8-10.8) X10*3/uL Hgb 14.7 (14.0-18.0) g/dl Hct 42.0 (42.0-52.0) % Plt Count 160 (160-400) X10*3/uL BMP 06/20/24 05:40 Sodium 140 Potassium 4.0 Chloride 100 Carbon Dioxide 29 BUN 8 L Creatinine 0.74 Calcium 9.5 Urine 06/19/24 Range/Units 08:14 Urine Color Dark Yellow Urine Appearance Clear Urine pH 5.5 (5.0-9.0) Ur Specific [place] 1.020 (1.005-1.025) Urine Protein Negative (Neg-Trace) mg/dL Urine Glucose (UA) Negative (Negative) mg/dL All other labs normal. Imaging Additional studies: Date of Service: 06/19/24 CT ABDOMEN AND PELVIS WITHOUT CONTRAST CLINICAL INFORMATION: Right flank pain. COMPARISON: Multiple priors, most recent CT abdomen/pelvis dated 06/05/2024. TECHNIQUE: Multidetector volumetric imaging was performed from the superior aspect of the liver through the pubic symphysis. Sagittal and coronal reformatted images were obtained on the technologist's workstation. This CT examination was performed using dose optimization techniques as appropriate, variously including the following: *Automated exposure control *Adjustment of mA and/or kV according to patient size (this includes techniques or standardized protocols for targeted exams where dose is matched to indication/reason for exam; i.e. extremities or head) *Use of iterative reconstruction technique DLP: 440 mGy-cm FINDINGS: LUNG BASES: The visualized lung bases are unremarkable. LIVER, GALLBLADDER, AND BILIARY TREE: The liver is normal in size, shape, and attenuation. Tiny parenchymal calcifications are redemonstrated. No new focal hepatic lesion or biliary ductal dilatation is present. Status post cholecystectomy. PANCREAS: Unremarkable. SPLEEN: Unremarkable. ADRENAL GLANDS: Unremarkable. KIDNEYS AND URETERS: The kidneys are normal in size, shape, and attenuation. Multiple bilateral renal stones/calcifications with the largest in the lower pole of the right kidney measuring up to 0.5 cm and located 8.8 cm from the posterior axillary line. Distal left ureteral stones just proximal to the ureterovesicular junction measuring up to 0.4 and 0.2 cm, new when compared to the prior CT. Minimal left-sided hydroureter without significant hydronephrosis. BLADDER: Unremarkable. GASTROINTESTINAL TRACT: Unremarkable rectosigmoid anastomosis. Additional unremarkable right lower quadrant bowel anastomosis. No small or large bowel obstruction. No bowel wall thickening or inflammatory change. PERITONEAL CAVITY: No intra-abdominal free air or free fluid. Central mesenteric surgical clips are redemonstrated. ABDOMINAL WALL: Small, fat-containing periumbilical hernia. LYMPH NODES: No significant lymphadenopathy. VASCULAR: Unremarkable. PELVIC VISCERA: The prostate and seminal vesicles are unremarkable. OSSEOUS STRUCTURES: Unremarkable. IMPRESSION: 1. Distal left ureteral stones just proximal to the ureterovesicular junction measuring up to 0.4 and 0.2 cm, new when compared to the prior CT. Minimal left-sided hydroureter without significant hydronephrosis. Multiple bilateral renal stones/calcifications. 2. Unremarkable bowel anastomoses. No small or large bowel obstruction. No bowel wall thickening or inflammatory change. 3. No new intra-abdominal mass, lymphadenopathy, or ascites. Assessment and Plan Plan Renal/Bladder US --(US Retroperitoneal) unclear if passed stones Keep NPO past MN IF stones still present Ureteroscopy with stone extraction, stent Left tomorrow Procedures Date of Service Date of Service: 06/20/24
[2024-06-20] MEDS: Acetaminophen 325 MG TABLET 650 MG PO (16:18)
[2024-06-20 19:49] VITALS: BP 115/68; PULSE 99; RESP 18; TEMP 36.8; O2SAT 97
[2024-06-20] MEDS: Zolpidem Tartrate 5 MG TABLET 10 MG PO (21:22)
[2024-06-21] MEDS: HYDROmorphone HCl 2 MG/ML VIAL IVPUSH ×3 (01:58→10:31)
[2024-06-21] MEDS: oxyCODONE HCl Immed Release 5 MG TABLET 10 MG PO ×3 (03:44→12:39)
[2024-06-21 04:00] VITALS: BP 98/64; PULSE 74; RESP 16; TEMP 36.2; O2SAT 95
[2024-06-21] MEDS: LORazepam 2 MG/ML VIAL 1 MG IVPUSH ×2 (05:35→12:47)
[2024-06-21 07:57] VITALS: BP 120/71; PULSE 77; RESP 16; TEMP 36.8; O2SAT 96
[2024-06-21] MEDS: Multivitamin TABLET 1 TAB PO (08:17)
[2024-06-21] MEDS: Tamsulosin HCL 0.4 MG CAPSULE PO (08:17)
[2024-06-21] MEDS: 0.9 % Sodium Chloride Flush 3 ML SYRINGE IVFLUSH (08:23)
--- NOTE | 2024-06-21 13:10 | P.DS_ITS ---
DS: Providers Provider Date of Service: 06/21/24 Date of admission: 06/19/24 14:48 Primary care physician: [facility] Consults: 06/19/24 13:52 Consult to Urology Routine Consulting Provider[place] [facility] Reason for consultation: Left-sided hydroureter DS: Diagnosis Discharge Diagnosis (1) Nausea & vomiting: Status: Acute DS: Summary Hospital Course Hospital Course: History and physical as per admitting provider. 43 yo male with PMH of Crohn's, IBD, CYDNEY (no longer requiring CPAP), anxiety, and migraines who presents with intractable left flank pain, left lower suprapubic pain, and relative N/V since last night/yesterday afternoon. The pain started suddenly yesterday afternoon during zoroastrianism, he states it has been constant and worsening since then. Difficulty with urination starting overnight, stating hard to start stream but able to empty fully. Denies crohn's type abdominal pain, difficulty with stool, abdominal bulging or hernias, hematuria, discharge, itching or rash, hematchezia, fevers, chills, changes to appetite, CP, palpitations or diaphoresis, denies substance use or abuse. Reports monogamy with - denies STI risk. 43-year-old man treated for severe left flank/left suprapubic/right CVA pain secondary to bilateral renal stones. Abdominopelvic CT showing distal left ureteral stone with left-sided hydro ureter without significant hydronephrosis w ith multiple bilateral renal stones. Patient was treated with IV narcotics, IV fluids, clear liquid diet. Took about 24 hours but pain was relieved so patient likely passed stones. He was seen and evaluated by Urology who recommended a retroperitoneum ultrasound which did not show any hydro nephrosis or obstructing stones. Plan for patient will be to follow-up with urology as needed especially if he develops similar symptoms again. He was started on Flomax which he should continue at home. History of Crohn's, IBD. No current exacerbation. Continue Humira at home 10 Anxiety. Continue anxiolytics at home Obstructive sleep apnea. Patient reported this resolved and is not on CPAP History of migraines. No exacerbation Time Attestation Discharge Coordination Time (in mins): 40 Quality: Safe Use of Opioids Does Pt have an Active Cancer Diagnosis on the Problem List?: No Quality: Stroke Does the patient have a stroke diagnosis?: No Physical Exam Vital Signs: Vital Signs: Last Vital Signs Temp 98.3 F 06/21/24 07:57 Pulse 77 06/21/24 07:57 Resp 16 06/21/24 07:57 BP 120/71 06/21/24 07:57 Pulse Ox 96 06/21/24 07:57 O2 Del Method Room Air 06/21/24 07:57 BMI result Body Mass Index 25.7 Appearing in no acute distress head is normocephalic atraumatic eyes pupils are PERRLA sclera is anicteric mouth throat mucous membranes are intact and moist neck is supple no lymphadenopathy, no JVD noted lung sounds are clear to auscultation heart regular rate rhythm, clear S1, S2 positive bowel sounds, abdomen is soft, nontender neuro patient is alert x3, no focal deficits DS: Data Data Completed and Pending Completed studies during hospitalization [Text1]: Procedures Excision of Ileum, Via Natural or Artificial Opening Endoscopic, Diagnostic (09/18/21) Discharge Plan Discharge Anticipated Discharge Date/Time: 06/21/24 13:04 Patient Disposition: Home, Self-Care Discharge Diagnosis: Left flank pain, renal calculi Referrals: Holden Velasquez MD [Physician] - [facility] [Primary Care Provider] - 1 Week Discharge Medications: New tamsulosin 0.4 mg Capsule 0.4 mg PO DAILY Qty: 90 0RF oxycodone 5 mg Tablet 10 mg PO Q8H PRN (Reason: Pain, Moderate(Pain Scale 4-6)) Qty: 9 0RF Rx Instructions: Partial Fill upon patient request. Continued clonazepam 1 mg tablet 1 tab PO BID PRN (Reason: Anxiety) omeprazole 20 mg capsule,delayed release(DR/EC) 20 mg PO DAILY@0630 zolpidem 10 mg tablet 1 tab PO BEDTIME loratadine 10 mg tablet 1 tab PO DAILY PRN (Reason: Allergy Symptoms) Humira(CF) Pen 40 mg/0.4 mL pen injector kit 40 mg subcut TH@0900 multivitamin with folic acid [Daily-Davis (with folic acid)] 400 mcg tablet 1 tab PO DAILY cyanocobalamin (vitamin B-12) 1,000 mcg/mL solution 1,000 mcg IM QMONTH ferrous gluconate 324 mg (38 mg iron) tablet 324 mg PO MOWEFR oxycodone 5 mg capsule 5 mg PO BID PRN (Reason: severe pain) Qty: 6 0RF Rx Instructions: Partial Fill upon patient request. Discharge Orders: Discharge Order (Routine); Ordered 06/21/24 Ordered By: Krystle Ball Diet: Advance to usual diet Activity on Discharge: As tolerated Stand Alone Forms: Patient Portal Discharge page Print Language: Urdu Care Plan Goals: Follow up with Urology as needed for any further issues with flank pain or question of renal calculi Health Concerns: Left flank pain, renal calculi Plan of Treatment: Follow-up with primary care provider as needed Take all medications as prescribed Assessment: See discharge summary Discharge Date/Time: 06/21/24 13:43
--- NOTE | 2024-06-21 13:34 | MHC.CM.PN ---
PT DCD HOME SELF CARE
== END 2024-06-21 13:43 | disposition home or self-care (01) | DRG 694 ==
LOC: HO.ED 12:36 → HO.EDOVER 14:51 → HO.S3 19:23
PROVIDERS: Physician Assistant Medical; Admitting Provider Nurse Practitioner Acute Care; Emergency Provider Emergency Medicine; Visit Provider Nurse Practitioner Acute Care
DX: N13.2 Hydronephrosis with renal and ureteral calculous obstruction (principal); K50.90 Crohn's disease, unspecified, without complications; F41.9 Anxiety disorder, unspecified; G43.909 Migraine, unspecified, not intractable, without status migrainosus; G47.33 Obstructive sleep apnea (adult) (pediatric); Z79.620 Long term (current) use of immunosuppressive biologic; Z79.899 Other long term (current) drug therapy
CPT/HCPCS: 36415; 74176; 76770; 80048; 80053; 81003; 82550; 83735; 85025; 99285; J1171; J1200; J2060; J2550; J2765; J3360

== ENCOUNTER → 2024-06-19 14:48 | Outpatient (BNV) | payer OTHER, SELFPAY | PROVIDERS: Admitting Provider Nurse Practitioner Acute Care; Emergency Provider Emergency Medicine; Visit Provider Urology | DX: N20.1 Calculus of ureter (principal) | CPT/HCPCS: 99222 ==

== ENCOUNTER → 2024-06-19 14:48 | Outpatient (BNV) | payer OTHER, SELFPAY | PROVIDERS: Admitting Provider Nurse Practitioner Acute Care; Emergency Provider Emergency Medicine; Visit Provider Nurse Practitioner Acute Care | DX: R11.2 Nausea with vomiting, unspecified (principal); R10.9 Unspecified abdominal pain | CPT/HCPCS: 99222; 99232 ==

== ENCOUNTER 2024-07-12 11:04 | Emergency (ER) | payer OTHER, SELFPAY ==
--- NOTE | ~2024-07-12 | CT_ITS ---
CLINICAL HISTORY: left flank pain CT ABDOMEN AND PELVIS WITHOUT CONTRAST Comparison: CT/SR - CT ABDOMEN PELVIS WO IV CON - 06/19/24 07:42 EST Findings: No basilar consolidation or pleural effusion. No hydronephrosis or significant perinephric edema. Bilateral nephrocalcinosis. Multiple nonobstructing calculi in the right kidney, largest 3 mm. Few 1 mm nonobstructing calculi in the left kidney. No acute abnormalities in the unenhanced solid organs. The gallbladder is surgically absent. No AAA. No bowel obstruction, pneumoperitoneum, or pneumatosis. Mild fluid distention of multiple small bowel loops with no abrupt transition point. There are subtotal colectomy changes. Appendix is not seen. Small fat containing umbilical and inguinal hernias. No free fluid in the pelvis. Urinary bladder and prostate unremarkable. Redemonstration of multiple tiny sclerotic densities in the pelvis and proximal left femur which are nonspecific but overall nonaggressive in appearance. IMPRESSION: 1. No acute obstructive uropathy. Bilateral nephrolithiasis and nephrocalcinosis. 2. Mild small bowel ileus pattern. No obstruction or ascites. This document has been electronically signed by: Martina Tyler DO on 07/12/2024 14:39:21
[2024-07-12 11:15] VITALS: BP 91/52; PULSE 85; RESP 20; TEMP 36.5; O2SAT 97; BMI 25.1
--- NOTE | 2024-07-12 11:15 | ED_ITS ---
HPI - General Adult General Chief complaint: Abdominal Pain Stated complaint: kidney pain Time Seen by Provider: 07/12/24 12:46 Source: patient Mode of arrival: ambulatory Limitations: no limitations History of Present Illness ED Provider: Aviva Boyd PA-C HPI narrative: Patient is a 43 year old assigned male at with a history of crohn's disease, anxiety, migraines, and IBD presenting to the emergency department today with left flank pain. Patient states that he was admitted here for 2 days on 06/19/2024 for a left sided kidney stone and at that time, urology did not do any type of procedure. Patient states that the pain was better until 2 days ago when it returned and is not getting better. Patient denies any dizziness, lightheadedness, abdominal pain, nausea, vomiting, fever, chills, blurry vision, double vision, loss of vision, chest pain, difficulty breathing, shortness of breath, night sweats, pain with urination, increased urinary frequency, increased urinary urgency, blood in his urine or stool, syncope or a near syncopal episode, recent trauma or falls, bowel incontinence, bladder incontinence, or any other complaints at this time. Onset (ago): day(s) (2) Location: left Radiation: flank Relieving factors: none Exacerbating factors: none Associated symptoms: denies other symptoms Treatments prior to arrival: none Related Data Home Medications ?Medication ?Instructions ?Recorded ?Confirmed adalimumab 40 mg/0.4 mL 40 mg subcut TH@0900 08/19/21 06/19/24 subcutaneous pen kit (Humira(CF) Pen) clonazepam 1 mg tablet 1 tab PO BID PRN Anxiety 08/19/21 06/19/24 loratadine 10 mg tablet 1 tab PO DAILY PRN Allergy Symptoms 08/19/21 06/19/24 omeprazole 20 mg capsule,delayed 20 mg PO DAILY@0630 08/19/21 06/19/24 release zolpidem 10 mg tablet 1 tab PO BEDTIME 08/19/21 06/19/24 multivitamin with folic acid 400 1 tab PO DAILY 06/11/22 06/19/24 mcg tablet (Daily-Davis (with folic acid)) cyanocobalamin (vitamin B-12) 1,000 mcg IM QMONTH 06/19/24 06/19/24 1,000 mcg/mL injection solution ferrous gluconate 324 mg (38 mg 324 mg PO MOWEFR 06/19/24 06/19/24 iron) tablet Previous Rx's ?Medication ?Instructions ?Recorded oxycodone 5 mg capsule 5 mg PO BID PRN severe pain #6 caps 11/02/22 oxycodone 5 mg tablet 10 mg (2 x 5 mg) PO Q8H PRN Pain, 06/21/24 Moderate(Pain Scale 4-6) #9 tabs tamsulosin 0.4 mg capsule 0.4 mg PO DAILY #90 caps 06/21/24 Allergies Allergy/AdvReac Type Severity Reaction Status Date / Time ondansetron [Ondansetron] Allergy Mild HIVES Verified 07/12/24 11:17 Sulfa (Sulfonamide Allergy Mild UNKNOWN Verified 07/12/24 11:17 Antibiotics) ketorolac Allergy Unknown Unknown Verified 07/12/24 11:17 meperidine [Demerol] Allergy Unknown Unknown Verified 07/12/24 11:17 metoclopramide [Reglan] Allergy Unknown Unknown Verified 07/12/24 11:17 morphine [Morphine] Allergy Unknown RASH Verified 07/12/24 11:17 haloperidol [From Haldol] Allergy Anaphylaxis Verified 07/12/24 11:17 ketamine Allergy Unknown Verified 07/12/24 11:17 From REGLAN Allergy Mild PT UNSURE Uncoded 02/15/24 07:09 BUT STATES HE IS ALLERGIC Compro Allergy Unknown Unknown Uncoded 02/15/24 07:09 From COMPAZINE Allergy Unknown ITCHING Uncoded 02/15/24 07:09 From Demerol Allergy Unknown ITCHY HIVES Uncoded 02/15/24 07:09 From Toradol Allergy Unknown UNK Uncoded 02/15/24 07:09 Review of Systems 2 Constitutional: Constitutional: Reports no additional constitutional complaints, Denies chills, Denies fever(s) and Denies night sweats Eyes: Eyes: Reports no additional eye complaints, Denies blurry vision, Denies change in vision, Denies diplopia, Denies eye discharge, Denies loss of vision and Denies eye pain ENT: Denies dizziness Cardiovascular: Cardiovascular: Reports no additional cardiovascular complaints, Denies chest pain, Denies lightheadedness, Denies Loss of Consciousness and Denies dyspnea Respiratory: Respiratory: Reports no additional respiratory complaints and Denies dyspnea Gastrointestinal: Gastrointestinal: Reports no additional gastrointestinal complaints, Denies abdominal pain, Denies melena, Denies hematochezia, Denies change in bowel habits and Denies change in stool character Genitourinary: Genitourinary: Reports no additional male genitourinary complaints, Denies hematuria, Denies oliguria, Denies difficulty urinating, Denies dysuria, Reports flank pain (lft), Denies urinary frequency, Denies urinary hesitancy, Denies urinary incontinence and Denies urinary urgency Musculoskeletal: Musculoskeletal: Reports no additional musculoskeletal complaints, Denies numbness and Denies tingling Neurologic: Denies dizziness, Denies loss of vision, Denies numbness and Denies tingling Psychiatric: Psychiatric: Reports no additional psychiatric complaints Endocrine: Endocrine: Reports no additional endocrine complaints Hematologic/Lymphatic: Hematologic/Lymphatic: Reports no additional hematologic/lymphatic complaints Allergic/Immunologic: Allergic/Immunologic: Reports no additional allergic/immunologic complaints [facility] Past Medical History Attestation statement: The following information was validated with the patient. Source: old records reviewed and nursing notes reviewed Medical History Cervicalgia Migraine Anxiety Crohn's disease IBD (inflammatory bowel disease) Partial small bowel obstruction Surgical History History of colostomy reversal S/P colostomy History of surgery on arm Hx of colonoscopy History of esophagogastroduodenoscopy (EGD) Family History Family History Mother HTN (hypertension) Social History Social History Household Members: Spouse Housing: House Do you presently have visiting nurse or other home services: No Alcohol intake: never Patient Tobacco Use Status: Never used Tobacco Advance Directives: No Advance Directives Information Provided: No Do you have a plan to hurt others: No Plan service: No Current occupational status: disabled Physical Exam ED Vital Signs: Vital Signs - 24 hr 07/12/24 11:15 07/12/24 13:55 07/12/24 15:45 Temperature 97.7 F 97.8 F 98.4 F Pulse Rate 85 84 78 Respiratory Rate 20 18 18 Blood Pressure 91/52 L 103/72 102/65 Pulse Oximetry 97 97 93 Oxygen Delivery Method Room Air Room Air Room Air BMI result Body Mass Index 25.1 Const General: cooperative, no acute distress, alert and awake Nutritional Appearance: well nourished Orientation/consciousness: patient oriented x3 Limitations: no limitations HENMT Head: Yes normal to inspection and Yes atraumatic Ears: hearing grossly normal bilaterally and external ears normal General nose exam: Normal external nose present, no nasal discharge noted and no epistaxis Face and sinus: Yes normal facial exam, No abrasion and No laceration Mouth: Normal oral and palatal mucosa present, no drooling and no muffled voice Eyes General: appearance normal, both eyes and all related structures Periorbital: periorbital findings normal Eyelids: Yes eyelids normal Conjunctivae: conjunctivae normal Pupils: Equal, round and reactive pupils present EOM: EOMs intact bilaterally Neck Neck: Yes normal visual inspection, Yes full ROM and Yes no lymphadenopathy Chest Chest palpation & inspection: normal inspection of the chest Resp Effort & Inspection: normal respiratory effort and able to speak in complete sentences GI Inspection: Yes normal to inspection Palpation (GI): Soft to palpation, not firm, nontender and no guarding Neuro General: patient oriented x3 and moves all extremities Cranial nerves: Yes Equal, round and reactive pupils present Cognition (Neuro): normal cognition Extrem General: Yes normal to inspection, Yes full ROM and Yes capillary refill normal Psych Appearance: grossly normal Mental Status: mental status grossly normal Affect: normal affect Attitude: cooperative Thought process: Normal thought process present Thought content: Normal thought content present Insight: Good insight present (Psych) Course Course Course Narrative: RME, this is a rapid medical exam performed by Hood Rosenthal please refer to primary provider for complete H&P- 43-year-old male presents for evaluation of left-sided flank pain for last 2 days. He was admitted 3 weeks ago for bilateral obstructing ureteral stones. He was seen by Urology, Dr. Celine Joseph. No procedures were done at that time. The patient reports that his pain returned 2 days ago. Plan for labs, urinalysis and repeat imaging. Medications Administered Discontinued Medications Generic Name Dose Route Start Last Admin Trade Name Freq PRN Reason Stop Dose Admin Diazepam 2.5 mg 07/12/24 13:48 07/12/24 13:55 Diazepam 10 Mg/2 Ml Cartridge IVPUSH 07/12/24 13:49 2.5 mg STAT STA Administration Diphenhydramine HCl 25 mg 07/12/24 12:47 07/12/24 13:06 Diphenhydramine Hcl 50 Mg/Ml Vial IVPUSH 07/12/24 12:48 25 mg ONCE ONE Administration Hydromorphone HCl 1 mg 07/12/24 12:47 07/12/24 13:06 Hydromorphone Hcl 1 Mg/Ml Syringe IVPUSH 07/12/24 12:48 1 mg ONCE ONE Administration Protocol Hydromorphone HCl 2 mg 07/12/24 14:33 07/12/24 15:01 Hydromorphone Hcl 2 Mg/Ml Vial IVPUSH 07/12/24 14:34 2 mg ONCE ONE Administration Protocol Sodium Chloride 1,000 mls @ 999 mls/hr 07/12/24 13:00 07/12/24 13:06 Ns IV 07/12/24 14:00 999 mls/hr .Q1H1M DULCE MARIA Administration Medical Decision Making Medical Decision Making [facility] Narrative: Patient is a 43 year old assigned male at with a history of crohn's disease, anxiety, migraines, and IBD presenting to the emergency department today with left flank pain. Patient's physical exam was unremarkable. Patient's blood work was unremarkable. Patient's urine showed no acute process. Patient's CT abd/pelvis showed no uropathic obstruction and a mild small bowel ileus pattern. I explained my physical exam findings as well as all test results to the patient. I answered all questions asked by the patient. Patient received multiple doses of IV pain medication which, upon re-evaluation, he stated it helped his symptoms significantly. I stressed the importance of the patient taking his medication as directed (either prescribed or as the over the counter packaging recommends). I stressed the importance of the patient following up with his primary care provider. I stressed the importance of the patient returning to the emergency department immediately if his symptoms were to worsen or if he were to develop any dizziness, shortness of breath, difficulty breathing, chest pain, blurry vision, loss of vision, nausea, vomiting, abdominal pain, fever, chills, back pain, or any other complaints. Patient verbalized agreement and understanding with this treatment plan and discharge. Differential Diagnosis Differential Diagnoses: The differential diagnosis associated with the presentation includes Abdominal pain Intractable pain Flank pain Kidney stone Obstructing stone Ileus Enteritis Admission/Observation Consideration of admission/observation: Escalation of care including admission/observation considered Patient would have been admitted to the hospital had his work up had any findings where hospital admission was appropriate and his clinical presentation warranted hospital admission. Lab Data [facility] Lab Attestation statement: I reviewed the patient's lab results. My interpretation of these results are in the [facility] Rationale portion of this note. 07/12/24 11:38 07/12/24 11:38 Labs: Lab Results 07/12/24 07/12/24 Range/Units 11:38 11:40 WBC 5.5 (4.8-10.8) X10*3/uL RBC 4.70 (4.60-5.80) X10*6/uL Hgb 15.1 (14.0-18.0) g/dl Hct 42.9 (42.0-52.0) % MCV 91.3 (80.0-98.0) fL MCH 32.1 (27.0-33.0) pg MCHC 35.2 (31.0-36.0) g/dl RDW 12.6 (11.0-16.0) % Plt Count 164 (160-400) X10*3/uL MPV 10.7 (9.4-12.4) fL Immature Gran % (Auto) 0.4 (0.0-0.4) % Neut % (Auto) 78.9 H (45-73) % Lymph % (Auto) 12.5 L (20-40) % Floyd % (Auto) 6.5 (2-11) % Eos % (Auto) 1.3 (0-4) % Baso % (Auto) 0.4 (0-2) % Lymph # (Auto) 0.7 L (1.2-4.9) X10*3/uL Floyd # (Auto) 0.4 (0.1-1.2) X10*3/uL Eos # (Auto) 0.1 (0.0-0.4) X10*3/uL Baso # (Auto) 0.0 (0.0-0.2) X10*3/uL Abs Immat Gran (auto) 0.02 (0.00-0.03) X10*3/uL Absolute Neuts (auto) 4.4 (2.0-8.3) x10*3/uL Absolute Nucleated RBC 0.000 (0.0-0.012) X10*3/uL Nucleated RBC % (auto) 0.0 (0.0-0.2) /100WBC Sodium 140 (135-145) mmol/L Potassium 4.2 (3.3-5.1) mmol/L Chloride 111 H (96-108) mmol/L Carbon Dioxide 22 (22-29) mmol/L Anion Gap 11 L (12-20) BUN 12 (9-16) mg/dL Creatinine 0.71 (0.5-1.4) mg/dL Estim Creat Clear Calc 114.2 Estimated GFR > 60 Random Glucose 104 (60-115) mg/dL Lactic Acid 1.5 (0.5-2.0) mmol/L Calcium 9.3 (8.4-10.2) mg/dL Total Bilirubin 1.6 H (0.0-1.0) mg/dL AST 38 H (5-37) U/L ALT 43 H (0-40) U/L Alkaline Phosphatase 62 (39-117) U/L Total Protein 7.9 (6.5-8.0) g/dL Albumin 4.3 (3.5-5.0) g/dL Lipase 33 (8-78) U/L Urine Color Dark Yellow Urine Appearance Cloudy Urine pH 5.5 (5.0-9.0) Ur Specific [place] >= 1.030 H (1.005-1.025) Urine Protein Trace (Neg-Trace) mg/dL Urine Glucose (UA) Negative (Negative) mg/dL Urine Ketones Trace (Negative) mg/dL Urine Blood Negative (Negative) Urine Nitrite Negative (Negative) Ur Leukocyte Esterase Trace H (Negative) Urine RBC 0-2 (0-2) /HPF Urine WBC 0-5 (0-5) /HPF Ur Squamous Epith Cells 0-2 (0-2) /HPF Urine Bacteria None Seen (None Seen) Hyaline Casts 3-5 (0-2) /LPF Independent Interpretation I performed an independent interpretation of an: CT Scan Interpretation: My interpretation is in agreement with the radiologist's impression of this imaging study. L Report Number: [id number]: Total DLP = 450.00 mGy-cm CLINICAL HISTORY: left flank pain CT ABDOMEN AND PELVIS WITHOUT CONTRAST Comparison: CT/SR - CT ABDOMEN PELVIS WO IV CON - 06/19/24 07:42 EST Findings: No basilar consolidation or pleural effusion. No hydronephrosis or significant perinephric edema. Bilateral nephrocalcinosis. Multiple nonobstructing calculi in the right kidney, largest 3 mm. Few 1 mm nonobstructing calculi in the left kidney. No acute abnormalities in the unenhanced solid organs. The gallbladder is surgically absent. No AAA. No bowel obstruction, pneumoperitoneum, or pneumatosis. Mild fluid distention of multiple small bowel loops with no abrupt transition point. There are subtotal colectomy changes. Appendix is not seen. Small fat containing umbilical and inguinal hernias. No free fluid in the pelvis. Urinary bladder and prostate unremarkable. Redemonstration of multiple tiny sclerotic densities in the pelvis and proximal left femur which are nonspecific but overall nonaggressive in appearance. IMPRESSION: 1. No acute obstructive uropathy. Bilateral nephrolithiasis and nephrocalcinosis. 2. Mild small bowel ileus pattern. No obstruction or ascites. This document has been electronically signed by: Martina Tyler DO on 07/12/2024 14:39:21 Dictated By: Martina Tyler MD Signed By: Electronically signed by Martina Tyler MD 07/12/24 143 Radiology Impression Discussion of test interpretation with radiology: I have reviewed the radiologist's reading. Critical Care Time Critical Care Time Critical Care Time: Yes Total Critical Care Time: 32 Attestation: I spent 32 minutes of Critical Care Time with this patient. This does not include time spent on separately reported billable procedures. Discharge Plan Discharge Clinical Impression: Abdominal pain Patient Disposition: Home, Self-Care Instructions: Abdominal Pain (ED) Additional Instructions: Your CT scan showed no evidence of stone movement but did show evidence of general inflammation of the bowels. Follow up with your primary care provider. Return to the emergency department immediately if your symptoms worsen or if you develop any dizziness, shortness of breath, difficulty breathing, chest pain, blurry vision, loss of vision, nausea, vomiting, abdominal pain, fever, chills, back pain, or any other complaints. Prescriptions: No Action clonazepam 1 mg tablet 1 tab PO BID PRN (Reason: Anxiety) omeprazole 20 mg capsule,delayed release(DR/EC) 20 mg PO DAILY@0630 zolpidem 10 mg tablet 1 tab PO BEDTIME loratadine 10 mg tablet 1 tab PO DAILY PRN (Reason: Allergy Symptoms) Humira(CF) Pen 40 mg/0.4 mL pen injector kit 40 mg subcut TH@0900 multivitamin with folic acid [Daily-Davis (with folic acid)] 400 mcg tablet 1 tab PO DAILY cyanocobalamin (vitamin B-12) 1,000 mcg/mL solution 1,000 mcg IM QMONTH ferrous gluconate 324 mg (38 mg iron) tablet 324 mg PO MOWEFR tamsulosin 0.4 mg Capsule 0.4 mg PO DAILY Qty: 90 0RF oxycodone 5 mg Tablet 10 mg PO Q8H PRN (Reason: Pain, Moderate(Pain Scale 4-6)) Qty: 9 0RF Rx Instructions: Partial Fill upon patient request. oxycodone 5 mg capsule 5 mg PO BID PRN (Reason: severe pain) Qty: 6 0RF Rx Instructions: Partial Fill upon patient request. Referrals: Daina Pichardo MD [Primary Care Provider] - Stand Alone Forms: Work/School Release Print Language: Yoruba
[2024-07-12 11:47] LABS: MANUAL DIFF FLAG NO
[2024-07-12 11:48] LABS: Basophils Percent Auto 0.4 % (0-2); Eosinophils Absolute Auto 0.1 X10*3/uL (0.0-0.4); Eosinophils Percent Auto 1.3 % (0-4); Hematocrit 42.9 % (42.0-52.0); Hemoglobin 15.1 g/dl (14.0-18.0); Imm Gran Abs Auto 0.02 X10*3/uL (0.00-0.03); Imm Gran Pct Auto 0.4 % (0.0-0.4); Lymphocytes Absolute Auto 0.7 X10*3/uL (1.2-4.9); Lymphocytes Percent Auto 12.5 % (20-40); Mean Corpuscular HGB Conc 35.2 g/dl (31.0-36.0); Mean Corpuscular Hemoglobin 32.1 pg (27.0-33.0); Mean Corpuscular Volume 91.3 fL (80.0-98.0); Mean Platelet Volume 10.7 fL (9.4-12.4); Monocytes Absolute Auto 0.4 X10*3/uL (0.1-1.2); Monocytes Percent Auto 6.5 % (2-11); Neutrophils Absolute Auto 4.4 x10*3/uL (2.0-8.3); Neutrophils Percent Auto 78.9 % (45-73); Platelet Count 164 X10*3/uL (160-400); Red Cell Distribution Width 12.6 % (11.0-16.0); White Blood Count 5.5 X10*3/uL (4.8-10.8)
[2024-07-12 11:49] LABS: Appearance Urine Cloudy; Color Urine Dark Yellow; Glucose Urine UA Negative (Negative); Leukocyte Esterase Urine Trace (Negative); Nitrite Urine Negative (Negative); PH 5.5 (5.0-9.0); Specific Gravity - Urine >= 1.030 (1.005-1.025); UMIC TRIGGER UACC YES; Urine Blood Negative (Negative); Urine Ketones Trace mg/dL (Negative); Urine Protein Trace mg/dL (Neg-Trace)
[2024-07-12 12:00] LABS: Bacteria Urine None Seen (None Seen); RBC Urine 0-2 /HPF (0-2); Squamous Epithelial Cell Urine 0-2 /HPF (0-2); WBC Urine 0-5 /HPF (0-5)
[2024-07-12 12:01] LABS: Lactic Acid 1.5 mmol/L (0.5-2.0)
[2024-07-12 12:02] LABS: Alanine Aminotransferase 43 U/L (0-40); Albumin Level 4.3 g/dL (3.5-5.0); Alkaline Phosphatase 62 U/L (39-117); Anion Gap 11 (12-20); Aspartate Amino Transferase 38 U/L (5-37); Bilirubin Total 1.6 mg/dL (0.0-1.0); Blood Urea Nitrogen 12 mg/dL (9-16); Calcium 9.3 mg/dL (8.4-10.2); Carbon Dioxide 22 mmol/L (22-29); Chloride 111 mmol/L (96-108); Creatinine Clr Calc Pharmacy 114.2; Estimated Glomerular Filt Rate > 60; Glucose Random 104 mg/dL (60-115); Lipase 33 U/L (8-78); Potassium 4.2 mmol/L (3.3-5.1); Sodium 140 mmol/L (135-145); Total Protein 7.9 g/dL (6.5-8.0)
[2024-07-12] MEDS: diphenhydrAMINE HCL 50 MG/ML VIAL 25 MG IVPUSH (13:06)
[2024-07-12] MEDS: 0.9 % Sodium Chloride 1,000 ML 999 ML IV (13:06)
[2024-07-12] MEDS: HYDROmorphone HCl 1 MG/ML SYRINGE IVPUSH (13:06)
[2024-07-12 13:55] VITALS: BP 103/72; PULSE 84; RESP 18; TEMP 36.6; O2SAT 97
[2024-07-12] MEDS: diazePAM 10 MG/2 ML CARTRIDGE 2.5 MG IVPUSH (13:55)
--- NOTE | 2024-07-12 13:56 | PC.NURSE ---
vss and up to date aside from having slightly soft BP. pt still verbalizing 10/10 left sided flank pain despite previous medication administration. provider notified/aware. pt remedicated per provider order. effectiveness pending. IVF continues to infuse at this time. pt waiting for CT results at this time. plan of care ongoing. call vidal placed within reach.
[2024-07-12] MEDS: HYDROmorphone HCl 2 MG/ML VIAL IVPUSH (15:01)
--- NOTE | 2024-07-12 15:02 | PC.NURSE ---
pt still verbalizing 10/10 pain at this time - medication administered per provider order. CT results remain pending at this time. plan of care ongoing.
[2024-07-12 15:45] VITALS: BP 102/65; PULSE 78; RESP 18; TEMP 36.9; O2SAT 93
[2024-07-12 16:27] VITALS: BP 102/65; PULSE 78; RESP 18; TEMP 36.9; O2SAT 94
== END 2024-07-12 16:27 | disposition home or self-care (01) ==
PROVIDERS: Physician Assistant; Emergency Provider Emergency Medicine; PCP Student in an Organized Health Care Education/Training Program
DX: R10.9 Unspecified abdominal pain (principal); N20.0 Calculus of kidney
CPT/HCPCS: 36415; 74176; 80053; 81001; 83605; 83690; 85025; 87040; 96361; 96374; 96375; 96376; 99283; 99284; J1171; J1200; J3360

== ENCOUNTER → 2024-07-12 11:20 | Outpatient (BNV) | payer OTHER, SELFPAY | PROVIDERS: Emergency Provider Emergency Medicine; PCP Student in an Organized Health Care Education/Training Program; Visit Provider Radiology Diagnostic Radiology | DX: N20.0 Calculus of kidney (principal); K56.7 Ileus, unspecified | CPT/HCPCS: 74176 ==

== ENCOUNTER 2024-08-03 13:02 | Emergency (ER) | payer OTHER, SELFPAY ==
--- NOTE | ~2024-08-03 | CT_ITS ---
EXAMINATION: CT ABDOMEN AND PELVIS WITH CONTRAST CLINICAL INFORMATION: Flank pain. COMPARISON: Numerous prior CT exams, most recently 07/12/2024. *Please note, since 2005 there are have been greater than 50 CT examinations performed on the abdomen and pelvis. Further CT examinations should be undertaken with extreme caution and reserve. TECHNIQUE: Multidetector volumetric images were obtained from the superior aspect of the liver through the pubic symphysis following administration 85 mL of Omnipaque 350 intravenous contrast. Sagittal and coronal reformatted images were obtained on the technologist's workstation. Oral contrast: No This CT examination was performed using dose optimization techniques as appropriate, variously including the following: *Automated exposure control *Adjustment of mA and/or kV according to patient size (this includes techniques or standardized protocols for targeted exams where dose is matched to indication/reason for exam; i.e. extremities or head) *Use of iterative reconstruction technique FINDINGS: LUNG BASES: The visualized lung bases are unremarkable. LIVER, GALLBLADDER, AND BILIARY TREE: The liver is normal in size, shape, and attenuation. No focal hepatic lesion or pathologic biliary ductal dilatation is present. Gallbladder is surgically absent. PANCREAS: Unremarkable. SPLEEN: Borderline splenomegaly, with craniocaudal diameter of 12.8 cm. ADRENAL GLANDS: Unremarkable. KIDNEYS AND URETERS: The kidneys are normal in size, shape, and attenuation. No hydronephrosis, hydroureter, or obstructing calculi seen. No perinephric stranding. There are 2 nonobstructing 2 mm calculi in the mid and lower right kidney, and a solitary 2 mm nonobstructing calculus in the inferior left kidney. BLADDER: Unremarkable. GASTROINTESTINAL TRACT: -There are surgical clips abutting several left upper quadrant jejunal loops. -There has been a recto-ileal anastomosis, with ileoanal pouch present, unremarkable in appearance. -There has been a colectomy, with enteric anastomosis in the right lower quadrant, unremarkable in appearance. -No small bowel obstruction or wall thickening. -The imaged stomach, and duodenum appear normal. -No abnormalities of the mesentery noted. ABDOMINAL WALL: -Post-laparotomy change. -Tiny fat-containing umbilical hernia. -No significant hernia. LYMPH NODES: -No pathologic lymphadenopathy present. VASCULAR: -Normal. PELVIC VISCERA: The prostate and seminal vesicles are unremarkable. OSSEOUS STRUCTURES: -No suspicious lytic or blastic bone lesions. CT/CT abdomen pelvis w IV con IMPRESSION: 1. No acute findings in the abdomen or pelvis. 2. Nonobstructing tiny renal calculi bilaterally. No hydronephrosis or hydroureter. 3. Surgical changes of colectomy with ileoanal pouch. Anastomotic sites appear patent. 4. Borderline splenomegaly. 5. Cholecystectomy. Electronically signed by: Beltran Bermeo MD 08/03/2024 02:53 PM EST
[2024-08-03 13:07] VITALS: BP 130/82; PULSE 80; O2SAT 98
[2024-08-03 13:29] VITALS: BP 108/63; PULSE 75; RESP 18; TEMP 2.6; TEMP 36.6; O2SAT 98; BMI 26.1
[2024-08-03 13:52] LABS: MANUAL DIFF FLAG NO
[2024-08-03 13:57] LABS: Appearance Urine Clear; Color Urine Yellow; Glucose Urine UA Negative (Negative); Leukocyte Esterase Urine Negative (Negative); Nitrite Urine Negative (Negative); PH 5.5 (5.0-9.0); Urine Blood Negative (Negative); Urine Ketones Negative (Negative); Urine Protein Negative (Neg-Trace)
[2024-08-03] MEDS: Lactated Ringers 1,000 ML 999 ML IV (13:57)
[2024-08-03 14:03] LABS: Basophils Percent Auto 0.5 % (0-2); Eosinophils Absolute Auto 0.1 X10*3/uL (0.0-0.4); Eosinophils Percent Auto 1.4 % (0-4); Hematocrit 38.9 % (42.0-52.0); Hemoglobin 13.6 g/dl (14.0-18.0); Imm Gran Abs Auto 0.01 X10*3/uL (0.00-0.03); Imm Gran Pct Auto 0.2 % (0.0-0.4); Lymphocytes Absolute Auto 1.8 X10*3/uL (1.2-4.9); Lymphocytes Percent Auto 32.4 % (20-40); Mean Corpuscular Hemoglobin 32.2 pg (27.0-33.0); Mean Corpuscular Volume 92.2 fL (80.0-98.0); Mean Platelet Volume 10.7 fL (9.4-12.4); Monocytes Absolute Auto 0.4 X10*3/uL (0.1-1.2); Monocytes Percent Auto 7.2 % (2-11); Neutrophils Absolute Auto 3.2 x10*3/uL (2.0-8.3); Neutrophils Percent Auto 58.3 % (45-73); Platelet Count 144 X10*3/uL (160-400); Red Blood Count 4.22 X10*6/uL (4.60-5.80); Red Cell Distribution Width 12.3 % (11.0-16.0); White Blood Count 5.5 X10*3/uL (4.8-10.8)
[2024-08-03 14:10] LABS: Alanine Aminotransferase 29 U/L (0-40); Albumin Level 3.8 g/dL (3.5-5.0); Alkaline Phosphatase 59 U/L (39-117); Anion Gap 8 (12-20); Aspartate Amino Transferase 25 U/L (5-37); Bilirubin Direct 0.3 mg/dL (0.0-0.5); Bilirubin Total 0.7 mg/dL (0.0-1.0); Blood Urea Nitrogen 12 mg/dL (9-16); Calcium 9.1 mg/dL (8.4-10.2); Carbon Dioxide 30 mmol/L (22-29); Chloride 108 mmol/L (96-108); Creatinine Clr Calc Pharmacy 112.7; Estimated Glomerular Filt Rate > 60; Glucose Random 80 mg/dL (60-115); Lipase 25 U/L (8-78); Potassium 4.1 mmol/L (3.3-5.1); Sodium 142 mmol/L (135-145); Total Protein 7.3 g/dL (6.5-8.0)
--- NOTE | 2024-08-03 14:17 | ED_ITS ---
HPI - General Adult General Chief complaint: Nausea/Vomiting/Diarrhea Stated complaint: FLANK PAIN X1W,WORSE TODAY,?STONE PER EMS Time Seen by Provider: 08/03/24 13:03 Source: patient Mode of arrival: EMS Limitations: no limitations History of Present Illness HPI narrative: this is a 43-year-old man with a past medical history of Crohn's disease status post total colectomy on Humira, anxiety, migraines, IBD, nephrolithiasis who was brought in by EMS for evaluation of left flank pain. The patient states that he feels like he has kidney stones. Patient states having left flank pain for the last 4 days. He states associated nausea. He says or vomiting. He states no fevers, chills, headache, lightheadedness, chest pain, dyspnea, dysuria, urinary frequency/ urgency, hematuria, melena, hematochezia , recent trauma, incontinence of stool or urine, constipation, changes in bowel habits or loss of consciousness. Related Data Home Medications ?Medication ?Instructions ?Recorded ?Confirmed adalimumab 40 mg/0.4 mL 40 mg subcut TH@0900 08/19/21 06/19/24 subcutaneous pen kit (Humira(CF) Pen) clonazepam 1 mg tablet 1 tab PO BID PRN Anxiety 08/19/21 06/19/24 loratadine 10 mg tablet 1 tab PO DAILY PRN Allergy Symptoms 08/19/21 06/19/24 omeprazole 20 mg capsule,delayed 20 mg PO DAILY@0630 08/19/21 06/19/24 release zolpidem 10 mg tablet 1 tab PO BEDTIME 08/19/21 06/19/24 multivitamin with folic acid 400 1 tab PO DAILY 06/11/22 06/19/24 mcg tablet (Daily-Davis (with folic acid)) cyanocobalamin (vitamin B-12) 1,000 mcg IM QMONTH 06/19/24 06/19/24 1,000 mcg/mL injection solution ferrous gluconate 324 mg (38 mg 324 mg PO MOWEFR 06/19/24 06/19/24 iron) tablet Previous Rx's ?Medication ?Instructions ?Recorded oxycodone 5 mg capsule 5 mg PO BID PRN severe pain #6 caps 11/02/22 oxycodone 5 mg tablet 10 mg (2 x 5 mg) PO Q8H PRN Pain, 06/21/24 Moderate(Pain Scale 4-6) #9 tabs tamsulosin 0.4 mg capsule 0.4 mg PO DAILY #90 caps 06/21/24 Allergies Allergy/AdvReac Type Severity Reaction Status Date / Time ondansetron [Ondansetron] Allergy Mild HIVES Verified 08/03/24 13:31 Sulfa (Sulfonamide Allergy Mild UNKNOWN Verified 08/03/24 13:31 Antibiotics) ketorolac Allergy Unknown Unknown Verified 08/03/24 13:31 meperidine [Demerol] Allergy Unknown Unknown Verified 08/03/24 13:31 metoclopramide [Reglan] Allergy Unknown Unknown Verified 08/03/24 13:31 morphine [Morphine] Allergy Unknown RASH Verified 08/03/24 13:31 haloperidol [From Haldol] Allergy Anaphylaxis Verified 08/03/24 13:31 ketamine Allergy Unknown Verified 08/03/24 13:31 From REGLAN Allergy Mild PT UNSURE Uncoded 02/15/24 07:09 BUT STATES HE IS ALLERGIC Compro Allergy Unknown Unknown Uncoded 02/15/24 07:09 From COMPAZINE Allergy Unknown ITCHING Uncoded 02/15/24 07:09 From Demerol Allergy Unknown ITCHY HIVES Uncoded 02/15/24 07:09 From Toradol Allergy Unknown UNK Uncoded 02/15/24 07:09 Review of Systems 2 Review of Systems: ROS as per HPI [facility] Past Medical History Medical History Cervicalgia Migraine Anxiety Crohn's disease IBD (inflammatory bowel disease) Partial small bowel obstruction Surgical History History of colostomy reversal S/P colostomy History of surgery on arm Hx of colonoscopy History of esophagogastroduodenoscopy (EGD) Family History Family History Mother HTN (hypertension) Social History Social History Household Members: Spouse Housing: House Do you presently have visiting nurse or other home services: No Alcohol intake: never Patient Tobacco Use Status: Never used Tobacco Advance Directives: No Advance Directives Information Provided: Yes service: No Current occupational status: disabled Physical Exam ED Vital Signs: Vital Signs - 24 hr 08/03/24 13:29 Temperature 36.6 F L Pulse Rate 75 Respiratory Rate 18 Blood Pressure 108/63 Pulse Oximetry 98 Oxygen Delivery Method Room Air BMI result Body Mass Index 26.1 Gen: NAD, AOx3 HEENT: NCAT, EOMI, normal conjunctiva CV: RRR Pulm: CTAB, no increased work of breathing GI: Soft, NTND, no rebound, guarding or rigidity MSK: No midline vertebral tenderness to palpation overlying skin changes, no extremity deformity, bilateral lower extremity compartments are soft Neuro: Grossly non focal, sensation intact to light touch in bilateral lower extremity dermatomes L2-S2, 5/5 bilateral lower extremity strength with hip /knee/ankle /hallux flexion/extension Medications Administered Discontinued Medications Generic Name Dose Route Start Last Admin Trade Name Freq PRN Reason Stop Dose Admin Lactated Ringer's 1,000 mls @ 999 mls/hr 08/03/24 13:04 08/03/24 13:57 Lr IV 08/03/24 14:04 999 mls/hr .Q1H1M ONE Administration Iohexol 100 ml 08/03/24 14:21 08/03/24 14:21 Iohexol 350 Mg/Ml 100 Ml Infus..Btl IV 08/03/24 14:22 85 ml ONCE ONE Administration Medical Decision Making Medical Decision Making MDM Narrative: In review of the medical record patient was seen here most recently on the following dates: July 12, 2024 - presented with flank pain. CT demonstrated no acute obstructive uropathy, mild small bowel ileus pattern. He was treated with IV pain medication and discharged home June 19, 2024- presented with flank pain found to have 4 mm left-sided kidney stone, treated with IV Dilaudid, antiemetics, admitted to the hospital for intractable pain, required no urological intervention June 05, 2024 - presented with abdominal pain, CT demonstrated no acute finding, treated with IV Dilaudid and was discharged home May 19, 2024 - presented with abdominal pain, CT unremarkable with no intestinal obstruction pattern or peritoneal abscess, status post colectomy, treated with the pain medicine and discharged home In review of the medical record and then addition to above aforementioned admission in June 30, 2024 patient was most recently admitted on the following dates: June 2022 - admitted for abdominal pain, diarrhea and vomiting. Had unremarkable ED evaluation and CT demonstrated no acute findings. Patient was treated supportively with Dilaudid and Phenergan. He was discharged home September 28, 2021 - admitted for abdominal pain, diarrhea and vomiting. CT demonstrated no acute finding of the abdomen or pelvis. Status post total colectomy. No bowel obstruction. No inflammation. Patient underwent sigmoidoscopy by Gastroenterology, which demonstrated no acute pathology. Patient was treated with IV pain medicine and steroids. He was discharged home. Differential diagnosis includes, but is not limited to nephrolithiasis, colitis, viral syndrome, acute kidney injury, electrolyte abnormality. Patient is afebrile and hemodynamically stable on room air. Exam is benign and reassuring. Patient is provided IV fluids. I reviewed the patient's labs, urinalysis and CT imaging as below. On re-examination, patient is well-appearing and in no acute distress. There is no indication for further emergent evaluation in this otherwise well-appearing patient as above. Patient is provided written and verbal instructions, educational materials, recommendations for outpatient follow-up, strict return precautions and teach back is performed. Patient states understanding and agreement with plan of care. Patient is discharged home in stable and improved condition. Admission/Observation Consideration of admission/observation: Escalation of care including admission/observation considered Lab Data MDM Lab Attestation statement: I reviewed the patient's lab results. I independently reviewed and interpreted the patient's blood work including CBC, metabolic panel, lipase and urinalysis, which are benign and reassuring. Patient is stable anemia with hemoglobin of 13.6 and mild thrombocytopenia of 144. there is no evidence of acute kidney injury or electrolyte abnormality. there is no anion gap elevation to suggest starvation ketosis. There is no transaminitis. Lipase is within normal limits. Urinalysis is noncontributory with no evidence of urinary tract infection. 08/03/24 13:48 08/03/24 13:48 Labs: Lab Results 08/03/24 Range/Units 13:48 WBC 5.5 (4.8-10.8) X10*3/uL RBC 4.22 L (4.60-5.80) X10*6/uL Hgb 13.6 L (14.0-18.0) g/dl Hct 38.9 L (42.0-52.0) % MCV 92.2 (80.0-98.0) fL MCH 32.2 (27.0-33.0) pg MCHC 35.0 (31.0-36.0) g/dl RDW 12.3 (11.0-16.0) % Plt Count 144 L (160-400) X10*3/uL MPV 10.7 (9.4-12.4) fL Immature Gran % (Auto) 0.2 (0.0-0.4) % Neut % (Auto) 58.3 (45-73) % Lymph % (Auto) 32.4 (20-40) % [place] % (Auto) 7.2 (2-11) % Eos % (Auto) 1.4 (0-4) % Baso % (Auto) 0.5 (0-2) % Lymph # (Auto) 1.8 (1.2-4.9) X10*3/uL [place] # (Auto) 0.4 (0.1-1.2) X10*3/uL Eos # (Auto) 0.1 (0.0-0.4) X10*3/uL Baso # (Auto) 0.0 (0.0-0.2) X10*3/uL Abs Immat Gran (auto) 0.01 (0.00-0.03) X10*3/uL Absolute Neuts (auto) 3.2 (2.0-8.3) x10*3/uL Absolute Nucleated RBC 0.000 (0.0-0.012) X10*3/uL Nucleated RBC % (auto) 0.0 (0.0-0.2) /100WBC Sodium 142 (135-145) mmol/L Potassium 4.1 (3.3-5.1) mmol/L Chloride 108 (96-108) mmol/L Carbon Dioxide 30 H (22-29) mmol/L Anion Gap 8 L (12-20) BUN 12 (9-16) mg/dL Creatinine 0.72 (0.5-1.4) mg/dL Estim Creat Clear Calc 112.7 Estimated GFR > 60 Random Glucose 80 (60-115) mg/dL Calcium 9.1 (8.4-10.2) mg/dL Total Bilirubin 0.7 (0.0-1.0) mg/dL Direct Bilirubin 0.3 (0.0-0.5) mg/dL AST 25 (5-37) U/L ALT 29 (0-40) U/L Alkaline Phosphatase 59 (39-117) U/L Total Protein 7.3 (6.5-8.0) g/dL Albumin 3.8 (3.5-5.0) g/dL Lipase 25 (8-78) U/L Urine Color Yellow Urine Appearance Clear Urine pH 5.5 (5.0-9.0) Ur Specific [place] 1.020 (1.005-1.025) Urine Protein Negative (Neg-Trace) mg/dL Urine Glucose (UA) Negative (Negative) mg/dL Urine Ketones Negative (Negative) mg/dL Urine Blood Negative (Negative) Urine Nitrite Negative (Negative) Ur Leukocyte Esterase Negative (Negative) Radiology Impression Discussion of test interpretation with radiology: I have reviewed the radiologist's reading. Radiologist Impression: CT/CT abdomen pelvis w IV con IMPRESSION: 1. No acute findings in the abdomen or pelvis. 2. Nonobstructing tiny renal calculi bilaterally. No hydronephrosis or hydroureter. 3. Surgical changes of colectomy with ileoanal pouch. Anastomotic sites appear patent. 4. Borderline splenomegaly. 5. Cholecystectomy. Electronically signed by: Beltran Bermeo MD 08/03/2024 02:53 PM [facility] Dictated By: Beltran Bermeo MD Signed By: <Electronically signed by Beltran Bermeo MD in OV> 08/03/24 0674 Discharge Plan Discharge Clinical Impression: Abdominal pain Patient Disposition: Home, Self-Care Instructions: Abdominal Pain (ED) Additional Instructions: You were seen and evaluated in the emergency room. Your vital signs were normal. Your blood work, Urine studies and CT scan showed no emergent findings, acute abnormalities or concerning findings. You are safe to be discharged home from the emergency room and follow up with your doctors outside of the hospital. Please follow-up with your primary care doctor in the next 5-7 days. Please return to the emergency room if you develop any worsening symptoms. Prescriptions: No Action clonazepam 1 mg tablet 1 tab PO BID PRN (Reason: Anxiety) omeprazole 20 mg capsule,delayed release(DR/EC) 20 mg PO DAILY@0630 zolpidem 10 mg tablet 1 tab PO BEDTIME loratadine 10 mg tablet 1 tab PO DAILY PRN (Reason: Allergy Symptoms) Humira(CF) Pen 40 mg/0.4 mL pen injector kit 40 mg subcut TH@0900 multivitamin with folic acid [Daily-Davis (with folic acid)] 400 mcg tablet 1 tab PO DAILY cyanocobalamin (vitamin B-12) 1,000 mcg/mL solution 1,000 mcg IM QMONTH ferrous gluconate 324 mg (38 mg iron) tablet 324 mg PO MOWEFR tamsulosin 0.4 mg Capsule 0.4 mg PO DAILY Qty: 90 0RF oxycodone 5 mg Tablet 10 mg PO Q8H PRN (Reason: Pain, Moderate(Pain Scale 4-6)) Qty: 9 0RF Rx Instructions: Partial Fill upon patient request. oxycodone 5 mg capsule 5 mg PO BID PRN (Reason: severe pain) Qty: 6 0RF Rx Instructions: Partial Fill upon patient request. Print Language: Russian
[2024-08-03] MEDS: iohexoL 350 MG/ML 100 ML INFUS..BTL IV (14:21)
[2024-08-03 15:15] VITALS: BP 108/63; PULSE 75; RESP 18; TEMP 2.6; TEMP 36.6; O2SAT 98
== END 2024-08-03 15:57 | disposition home or self-care (01) ==
PROVIDERS: Emergency Provider Emergency Medicine
DX: R10.10 Upper abdominal pain, unspecified (principal); R11.10 Vomiting, unspecified; R19.7 Diarrhea, unspecified; K50.90 Crohn's disease, unspecified, without complications; Z79.899 Other long term (current) drug therapy
CPT/HCPCS: 36415; 74177; 80048; 80076; 81003; 83690; 85025; 99283; 99284; J7120; Q9967

== ENCOUNTER → 2024-08-03 13:05 | Outpatient (BNV) | payer OTHER, SELFPAY | PROVIDERS: Emergency Provider Emergency Medicine; Visit Provider Radiology Diagnostic Radiology | DX: N20.0 Calculus of kidney (principal); Z90.49 Acquired absence of other specified parts of digestive tract | CPT/HCPCS: 74177 ==

== ENCOUNTER 2024-08-21 08:42 | Outpatient (AMB) | payer OTHER, SELFPAY ==
--- NOTE | 2024-08-21 08:49 | MHC.OFFVIS ---
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 Allergies ondansetron [Ondansetron] Allergy (Mild, Verified 08/21/24 08:50) HIVES Sulfa (Sulfonamide Antibiotics) Allergy (Mild, Verified 08/21/24 08:50) UNKNOWN ketorolac Allergy (Unknown, Verified 08/21/24 08:50) Unknown meperidine [Demerol] Allergy (Unknown, Verified 08/21/24 08:50) Unknown metoclopramide [Reglan] Allergy (Unknown, Verified 08/21/24 08:50) Unknown morphine [Morphine] Allergy (Unknown, Verified 08/21/24 08:50) RASH haloperidol [From Haldol] Allergy (Verified 08/21/24 08:50) Anaphylaxis ketamine Allergy (Verified 08/21/24 08:50) Unknown From REGLAN Allergy (Mild, Uncoded 08/21/24 08:50) PT UNSURE BUT STATES HE IS ALLERGIC Compro Allergy (Unknown, Uncoded 08/21/24 08:50) Unknown From COMPAZINE Allergy (Unknown, Uncoded 08/21/24 08:50) ITCHING From Demerol Allergy (Unknown, Uncoded 08/21/24 08:50) ITCHY HIVES From Toradol Allergy (Unknown, Uncoded 08/21/24 08:50) UNK HPI Comments Details: 08/21/24--Jony was seen in consultation [facility] Medical History Cervicalgia Migraine Anxiety Crohn's disease IBD (inflammatory bowel disease) Partial small bowel obstruction Surgical History History of colostomy reversal S/P colostomy History of surgery on arm Hx of colonoscopy History of esophagogastroduodenoscopy (EGD) Family History Mother HTN (hypertension) Social History Household Members: Spouse Housing: House Do you presently have visiting nurse or other home services: No Alcohol intake: never Patient Tobacco Use Status: Never used Tobacco service: No Current occupational status: disabled Results AMB Urinalysis, Automated UA Leukoctes 0 Esequiel/uL Last Edit by OLIVIA Aguilar on 08/21/24 09:06 UA Nitrite Negative Last Edit by OLIVIA Aguilar on 08/21/24 09:06 UA Urobilinogen 0.2 mg/dL Last Edit by Selene Noble CCM on 08/21/24 09:06 UA Protein 0 mg/dL Last Edit by Selene Noble CCM on 08/21/24 09:06 UA pH 6.0 Last Edit by Selene Noble [facility] on 08/21/24 09:06 UA Blood 0 Que/uL [facility] 08/[facility] 09:06 UA Specific [place] 1.025 Last Edit by Selene Noble [facility] on 08/21/24 09:06 UA Ketone Negative Last Edit by Selene Noble CCM on 08/21/24 09:06 UA Bilirubin 0 mg/dL Last Edit by Selene Noble [facility] on 08/21/24 09:06 UA Glucose 0 mg/dL Last Edit by Selene Noble [facility] on 08/21/24 09:06 Results Reviewed Results Reviewed: Laboratory Last Values Urine pH (Auto) 6.0 08/21/24 09:05 Specific [place] (Auto) 1.025 08/21/24 09:05 Urine Protein (Auto) 0 mg/dL 08/21/24 09:05 Glucose (UA)(Auto) 0 mg/dL 08/21/24 09:05 Urine Ketones (Auto) Negative 08/21/24 09:05 Urine Blood (Auto) 0 Que/uL 08/21/24 09:05 Urine Nitrite (Auto) Negative 08/21/24 09:05 Urine Bilirubin (Auto) 0 mg/dL 08/21/24 09:05 Urine Urobilinogen (Auto) 0.2 mg/dL 08/21/24 09:05 Leukocyte Esterase (Auto) 0 Esequiel/uL 08/21/24 09:05 Date of Service: 08/03/24 CT ABDOMEN AND PELVIS WITH CONTRAST CLINICAL INFORMATION: Flank pain. COMPARISON: Numerous prior CT exams, most recently 07/12/2024. *Please note, since 2005 there are have been greater than 50 CT examinations performed on the abdomen and pelvis. Further CT examinations should be undertaken with extreme caution and reserve. TECHNIQUE: Multidetector volumetric images were obtained from the superior aspect of the liver through the pubic symphysis following administration 85 mL of Omnipaque 350 intravenous contrast. Sagittal and coronal reformatted images were obtained on the technologist's workstation. Oral contrast: No This CT examination was performed using dose optimization techniques as appropriate, variously including the following: *Automated exposure control *Adjustment of mA and/or kV according to patient size (this includes techniques or standardized protocols for targeted exams where dose is matched to indication/reason for exam; i.e. extremities or head) *Use of iterative reconstruction technique FINDINGS: LUNG BASES: The visualized lung bases are unremarkable. LIVER, GALLBLADDER, AND BILIARY TREE: The liver is normal in size, shape, and attenuation. No focal hepatic lesion or pathologic biliary ductal dilatation is present. Gallbladder is surgically absent. PANCREAS: Unremarkable. SPLEEN: Borderline splenomegaly, with craniocaudal diameter of 12.8 cm. ADRENAL GLANDS: Unremarkable. KIDNEYS AND URETERS: The kidneys are normal in size, shape, and attenuation. No hydronephrosis, hydroureter, or obstructing calculi seen. No perinephric stranding. There are 2 nonobstructing 2 mm calculi in the mid and lower right kidney, and a solitary 2 mm nonobstructing calculus in the inferior left kidney. BLADDER: Unremarkable. GASTROINTESTINAL TRACT: -There are surgical clips abutting several left upper quadrant jejunal loops. -There has been a recto-ileal anastomosis, with ileoanal pouch present, unremarkable in appearance. -There has been a colectomy, with enteric anastomosis in the right lower quadrant, unremarkable in appearance. -No small bowel obstruction or wall thickening. -The imaged stomach, and duodenum appear normal. -No abnormalities of the mesentery noted. ABDOMINAL WALL: -Post-laparotomy change. -Tiny fat-containing umbilical hernia. -No significant hernia. LYMPH NODES: -No pathologic lymphadenopathy present. VASCULAR: -Normal. PELVIC VISCERA: The prostate and seminal vesicles are unremarkable. OSSEOUS STRUCTURES: -No suspicious lytic or blastic bone lesions. IMPRESSION: 1. No acute findings in the abdomen or pelvis. 2. Nonobstructing tiny renal calculi bilaterally. No hydronephrosis or hydroureter. 3. Surgical changes of colectomy with ileoanal pouch. Anastomotic sites appear patent. 4. Borderline splenomegaly. 5. Cholecystectomy. Assessment & Plan Assessment & Plan Orders: Orders AMB Urinalysis Automated Today Z13.9 - Encounter for screening, unspecified Coding Level of Care Code Est Pt Level 4 (91093)
== END 2024-08-21 10:13 | disposition home or self-care (01) ==
PROVIDERS: Visit Provider Urology
DX: Z13.9 Encounter for screening, unspecified (principal)

== ENCOUNTER → 2024-08-21 08:42 | Outpatient (BNVA) | payer OTHER, SELFPAY | PROVIDERS: Visit Provider Urology | DX: N20.1 Calculus of ureter (principal); N20.0 Calculus of kidney | CPT/HCPCS: 81003; 99212 ==

== ENCOUNTER 2024-10-15 23:05 | Emergency (ER) | payer OTHER, SELFPAY ==
--- NOTE | ~2024-10-15 | CT_ITS ---
CLINICAL HISTORY: diffuse abd flanks pain, hx chrons kidney stones CT abdomen and pelvis with contrast Comparison: CT of the abdomen pelvis from 08/03/2024. Findings: Mild bibasilar atelectasis and scarring. Mild fat deposition of the liver. Mild volume loss of the pancreas. The adrenal glands are normal. The spleen is nonenlarged. Nephrolithiasis are redemonstrated in the right kidney with mild increase in size and number. No hydronephrosis. The gallbladder is surgically absent. Small mesenteric lymph nodes are redemonstrated with mild fly mesentery. No definite new or enlarged lymphadenopathy. No small bowel obstruction. Postprocedural changes from partial large intestine resection redemonstrated. Portions of the large intestine persists with moderate to severe stool burden. Abrupt change in caliber of the lower distal sigmoid and nonspecific. No free intraperitoneal air. The appendix is not definitively seen. Prostate gland measures 4.5 cm transverse. Mild wall thickening of the urinary bladder is nonspecific. Multilevel Schmorl's nodes are redemonstrated. Degenerative changes include mild osteoarthritis of the hips. In the lumbar facet arthropathy. IMPRESSION: 1. Severe stool burden in the remaining parts of the large intestine, with abrupt change in caliber of the lower distal sigmoid near anastomosis. Stenosis anastomosis is considered. 2. No small bowel obstruction. This document has been electronically signed by: Pablo Lopes MD on 10/16/2024 02:56:22
[2024-10-15 23:41] VITALS: BP 114/75; PULSE 83; RESP 18; TEMP 36.8; O2SAT 98; BMI 25.1
[2024-10-16 00:14] LABS: MANUAL DIFF FLAG NO
--- OUTSIDE RECORDS SUMMARY | 2024-10-16 00:24 | XMS_ITS | Encounter Summary ---
Author Organization [facility] Address [address] [place] [address] Care Team Providers Care Ward Maid Name Role Phone Daina Pichardo MD Primary Care Pro vider Reason for Visit * Reason Onset Date Comments Med Refill 09/10/2023 Encounter Details Date Type Department Care Team (Late st Contact Info) Description 09/10/2023 Refill [facility] [address] [place] [address] Daina Pichardo MD [address] [place] [address] Insomnia, unspecified type Social History Tobacco Use Types Packs/Day Years Used Date Smoking Tobacco: Never Smokeless Tobacco: Never Alcohol Use Standard Drinks/Week Comments Never 0 (1 standard drink = 0.6 oz pur e alcohol) Depression Answer Date Recorded Patient Health Questionnaire-9 Score 3 02/15/2023 Housing Stability Answer Date Recorded What is your housing situation today? I have balwinder levy 04/26/[address] you li ve. Do you have problems with any of the following? None of the above 04/26/2023 Food Insecurity Answer Date Recorded Within the past 12 months, y ou worried that your food would run out before you got money to buy more: Never True 04/26/2023 Within the past 12 months,th e food you bought just didn't last and you didn't have enough money to get more: Never True Transportation Answer Date Recorded In the past 12 months, has l ack of transportation kept you from medical appts, meetings, work or from getting things needed for daily living? No 04/26/2023 Utilities Answer Date Recorded In the past 12 months, has t he electric, gas, oil or water company threatened to shut off services in your home? No 04/26/2023 Depression Answer Date Recorded Patient Health Questionnaire-2 Score 0 02/15/2023 Sex and Gender Information Value Date Recorded Sex Assigned at Male 05/11/2022 10:16 AM EDT Legal Sex Male 10:16 AM EDT Gender Identity Male 02/15/2023 11:13 AM EDT Sexual Orientation Straight 02/15/2023 11 :13 AM EDT documented as of this encounter Plan of Treatment Upcoming Encounters Date Type Department Care Team (Late st Contact Info) Description 10/31/2024 9:15 AM EDT Office Visit [facility] [address] [place] [address] Daina Pichardo MD [address] [place] [address] 11/16/2024 9:00 AM EDT Clinical Support [facility] [address] [place] [address] Hanna Mark, RN [address] [place] [address] documented as of this encounter Visit Diagnoses Diagnosis Insomnia, unspecified type documented in this encounter Additional Health Concerns Assessment Noted Time PHQ-9 Depression Total Score: 3 02/16/20 23 10:56 AM EDT documented as of this encounter Care Teams Ward Maid Relationship Specialty Start Date End Date Daina Pichardo MD [address] [place] [address] PCP - General Internal Medicine 12/16/22 documented as of this encounter
--- OUTSIDE RECORDS SUMMARY | 2024-10-16 00:24 | XMS_ITS | Referral Summary ---
Author Organization [facility] Address [address] [place] [address] Care Team Providers Care Geospatial Information Scientist Name Role Phone Daina Pichardo Primary Care Provider +1- [phone] Encounters Date Type Department Care Team Description 10/04/2024 Refill [facility] [address] [place] [address] Glass Cleaning Machine Tender: Doris Rubio MD 08/11/2024 Refill [facility] [address] [place] [address] Glass Cleaning Machine Tender: Doris Rubio MD from Last 3 Months Allergies Active Allergy Reactions Criticality Noted Date Comments Prochlorperazine Itching,Rash Medium 09/20/2017 Meperidine Itching,Rash Medium Haloperidol Delirium High 01/11/2019 Ketorolac Hives Medium 06/03/2017 Metoclopramide Unknown 10/16/2020 Morphine Migraine Medium Ondansetron Hcl Itching,Rash,Hives Medium 09/20/2017 Must have benadryl with this med per pt Metoclopramide Hcl Itching Medium 09/20/2017 Sulfa (Sulfonamide Antibiotics) Rash Medium 06/03/2017 Trazodone Rash 03/10/2019 Medications zolpidem (AMBIEN) 10 mg tablet Take 10 mg by mouth nightly. Active clonazePAM (KlonoPIN) 1 mg tablet Take 1 mg by mouth 2 times a day. Active syringe with needle (SYRINGE 3CC/25GX1 ) 3 mL 25 gauge x 1 syringe 3 mL 25 gauge 1 Use syringe to inject vitamin B12 one time per month. 1 Syringe 11 9 Active hydrocortisone 1% cream APLIQUE AL ?CHRISTIANO AFECTADA DOS VECES AL D?A 1 9 Active loratadine (CLARITIN) 10 mg tablet TOME MARISABEL TABLETA TODOS LOS D? CUANDO SEA NECESARIO 3 9 Active DAILY-ZOHAIB tablet TOME MARISABEL TABLETA TODOS LOS D? CON ALIMENTO 4 9 Active ergocalciferol (VITAMIN D2) 1,250 mcg (50,000 unit) capsule Take 1 capsule (50,000 Units total) by mouth once a week. 12 capsule 3 0 Active cyanocobalamin (VITAMIN B12) 1,000 mcg/mL injection INJECT 1 ML (1,000 MCG TOTAL) UNDER THE SKIN EVERY 30 DAYS DIRECTED 3 mL 3 0 Active ferrous sulfate 325 mg (65 mg iron) EC tablet Take one tablet every other day. 45 tablet 3 1 Active omeprazole (PriLOSEC) 20 mg capsuleIndicatio ns:Crohn's disease of small intestine with complication (HCC),Gastroesop hageal reflux disease with esophagitis, unspecified whether hemorrhage Take 2 capsules by mouth every day 180 capsule 1 3 Active ferrous gluconate (FERGON) 324 mg (38 mg iron) tablet Take 1 tablet by mouth 3 times a week. 3 Active naloxone HCl (NARCAN) 4 mg/actuation nasal spray Administer 1 Package into affected nostril(s) once as needed. 2 Active oxyCODONE IR (ROXICODONE) 5 mg tablet Take 1 tablet by mouth every 8 hours as needed. 3 Active promethazine (PHENERGAN) 25 mg tablet Take 1 tablet by mouth every 6 hours as needed. 3 Active adalimumab (Humira,CF, Pen) 40 mg/0.4 mL pen injector kit Inject 0.4 mL (40 mg total) under the skin every 7 days. 4 each 1 09/07/2024 7:54 PM EST 02/03/202 5 10/13/19 25 Active Problems Problem Noted Date Diagnosed Date Preoperative clearance 04/01/2020 Crohn's disease of small intestine with complica tion 01/11/2018 Overview (03/04/2020): Crohn's disease characteristics: ?? Diagnosis date and disease extent: Inflammatory bowel disease: Diagnosis of ulcerative colitis in 2000. Determined to have Crohn's disease 2017 by pouchoscopy and VCE showing small bowel inflammation. ?? History of severe disease: Yes ?? Endoscopic evaluation: Anal fissure found on perianal exam. Ileoanal pouch, afferent limb, pre-pouch ileum and neoterminal ileum are normal. Pouchoscopy October 28, 2017 showing ileitis concerning for Crohn's disease as well as mild pouchitis. ?? Small bowel evaluation: Video capsule endoscopy December 14, 2017 showing enteritis in the entire small bowel consistent with mild to moderate Crohn's disease as well as enteritis in the region of the J-pouch. ?? IBD Surgical history: Total abdominal colectomy and ileoanal J-pouch anastomosis in 2006 at [facility]. ?? IBD Complications: Recurrent small bowel obstructions of unclear cause; pouchitis. Prior history of anal abscess. Abnormal liver function tests: Unclear cause. Normal MRCP January 2018. ?? IBD Medications: Previously treated with prednisone, enemas, Asacol, Balsalazide. Humira started January 2018 after diagnosis of Crohn's disease. ?? Health Maintenance: PCV13 and TDAP January 2018. Assessment & Plan (03/04/2020 3:32 PM EDT): Patient reporting up to 15 bowel movements per day. Patient reporting blood in his stool most of the time. Patient also reporting anal pain patient is having nocturnal symptoms. Patient has not been taking Canasa suppositories due to rectal discomfort. Patient was advised to have a colonoscopy in January 2020. Unfortunately, he went to get COVID testing, states he went home and then presented to the hospital at [facility]. He therefore missed his colonoscopy. Patient's symptoms of pain and increased bowel movements has been persistent for the last month and a half. Patient's Humira level has not been resulted as he just completed this on Wednesday. C. difficile and calprotectin have been ordered back in January but patient never completed them. Patient states he will complete these as soon as possible. We will try to reschedule his colonoscopy as soon as possible. If there is no evidence of infection on his stool studies, I will start him on a prednisone taper. Assessment & Plan (01/11/2019 10:50 AM EDT): As patient presented with significant distention and abdominal pain we ordered a stat KUB and lab work to assess for obstruction. We saw the patient back in clinic with these results and determined no obstruction. We will therefore treat him for his flare with a prednisone taper to help with pain and diarrhea. We will also increase the frequency of his humira to every week and follow up in 1-2 month to assess for efficacy. Patient verbalizes Understanding and agrees to plan. RLQ abdominal pain 09/20/2017 Overview (09/20/2017): Added automatically from request for surgery [id number] Diarrhea 09/20/2017 Overview (09/20/2017): Added automatically from request for surgery [id number] Perianal abscess 06/02/2017 Ileal pouchitis 02/23/2017 Abdominal pain 01/04/2017 Complications of intestinal pouch 01/04/2017 Immunizations Immunization Administration Dates Next Due Pneumococcal Conjugate Vaccine, 13 Valent 2017 Pneumococcal Polysaccharide Vaccine, 23 Valent 0 04/04/2018 Tetanus Toxoid, Reduced Diph theria Toxoid, and Acellular Pertussis Vaccine, Adsorbed 01/11/2018 Social History Tobacco Use Types Packs/Day Years Used Date Smoking Tobacco: Never Smokeless Tobacco: Never Tobacco Cessation:Counseling Given: Not Answered Comments:: Alcohol Use Standard Drinks/Week Comments No 0 (1 standard drink = 0.6 oz pur e alcohol) Sex and Gender Information Value Date Recorded Sex Assigned at Male 03/22/2023 6:30 PM EDT Legal Sex Male 9:23 AM EDT Gender Identity Male Sexual Orientation Straight 03/22/2023 6: 30 PM EDT Last Filed Vital Signs Vital Sign Reading Time Taken Comments Blood Pressure 105/67 05/05/2024 4:31 PM EDT Pulse 68 05/05/2024 4:31 PM EDT Temperature 36 ??C (96.8 ??F) 05/05/2024 1:47 PM EDT Respiratory Rate 12 05/05/2024 4:31 PM EDT Oxygen Saturation 100% 05/05/2024 4:31 PM EDT Inhaled Oxygen Concentration - - Weight 68.9 kg (152 lb) 03/22/2024 8:59 AM EDT Height 162.6 cm (5' 4 ) 04/01/2020 8:33 AM EDT Body Mass Index 26.09 04/01/2020 8:33 AM EDT Plan of Treatment Upcoming Encounters Date Type Department Care Team (Late st Contact Info) Description 01/17/2025 9:00 AM EDT Follow-Up [facility] [address] [place] [address] Glass Cleaning Machine Tender: Josue Hamm MD PhD [address] [place] [address] Procedures * Due to [place] state law, this organization might not be sharing negative HIV tests. Procedure Name Priority Date/Time Associated Diagnosis Comments HEPATITIS C RNA, QUANTITATIVE PCR W/REFLEX HCV GENOTYPE Routine 01/11/2018 12:08 PM EDT Crohn's disease of small intestine with complication from Last 3 Months or Most Recently Relevant to Health Maintenance Results * Due to [place] [employer] law, this organization might not be sharing negative HIV tests. * Hepatitis C PCR w/Reflex HCV Genotype (01/11/2018 12:08 PM EDT) Hcv RNA, Quantitative Real Time PCR <15 NOT DETECTED NOT DETECTED IU/mL 01/13/2018 10:07 PM EDT [employer] [facility] Hcv RNA, Quantitative Real Time PCR <1.18 NOT DETECTED NOT DETECTED Log IU/mL 01/13/2018 10:07 PM EDT [employer] [facility] Comment: This test was performed using Real-Time Polymerase Chain Reaction. Reportable Range: 15 IU/mL to 100,000,000 IU/mL (1.18 Log IU/mL to 8.00 Log IU/mL). The analytical performance characteristics of this assay have been determined by [employer]. The modifications have not been cleared or approved by the FDA. This assay has been validated pursuant to the CLIA Regulations and is used for clinical purposes. For more information on this test, go to: http://education.Employma/faq/PDF79t5 (This link is being provided for informational/ Educational purposes only.) Blood specimen (specimen) Structure of peripheral vein / Unknown Venipuncture / Unknown 01/11/2018 12:08 PM EDT 01/11/2018 12:20 PM EDT Narrative [facility] - 01/13/2018 10:07 PM EDT [facility] Received Date:[id number] us Luis Doherty MD LAB BLOOD ORDERABLES Edited Result - Final [facility] [address] [facility] [address] [facility], [place] [address], [employer] [facility] [address] [facility] 3rd [address], [place] [address], from Last 3 Months or Most Recently Relevant to Health Maintenance Insurance Advance Directives Documents on File Type Date Recorded Patient Bell Clerk Expl anation Health Care Proxy 06/02/2017 11:11 AM * Full Code (Latest Code Status on File) Date Activated Date Inactivated Comments 05/05/2024 3:58 PM 05/05/2024 7:04 PM Care Teams Geospatial Information Scientist Relationship Specialty Start Date End Date Daina Pichardo: [phone] [facility] - General 10/12/23
--- OUTSIDE RECORDS SUMMARY | 2024-10-16 00:24 | XMS_ITS | Encounter Summary ---
Author Organization [employer] Address [address] [place] [address] Care Team Providers Care Horticultural Agent Name Role Phone Daina Pichardo MD Primary Care Pro vider Reason for Visit * Reason Onset Date Comments Med Refill 06/20/2024 Encounter Details Date Type Department Care Team ([facility] st Contact Info) Description 06/20/2024 Telephone [facility] [address] [place] [address] Daina Pichardo MD [address] [place] [address] Med Refill Social History Tobacco Use Types Packs/Day Years Used Date Smoking Tobacco: Never Smokeless Tobacco: Never Alcohol Use Standard Drinks/Week Comments Never 0 (1 standard drink = 0.6 oz pur e alcohol) Depression Answer Date Recorded Patient Health Questionnaire-9 Score 3 02/15/2023 Housing Stability Answer Date Recorded What is your housing situation today? I have balwinder levy 09/23/[address] you li ve. Do you have problems with any of the following? None of the above 09/23/2023 Food Insecurity Answer Date Recorded Within the past 12 months, y ou worried that your food would run out before you got money to buy more: Never True 09/23/2023 Within the past 12 months,th e food you bought just didn't last and you didn't have enough money to get more: Never True Transportation Answer Date Recorded In the past 12 months, has l ack of transportation kept you from medical appts, meetings, work or from getting things needed for daily living? No 09/23/2023 Utilities Answer Date Recorded In the past 12 months, has t he electric, gas, oil or water company threatened to shut off services in your home? No 09/23/2023 Depression Answer Date Recorded Patient Health Questionnaire-2 Score 0 02/15/2023 Sex and Gender Information Value Date Recorded Sex Assigned at Male 05/11/2022 10:16 AM EDT Legal Sex Male 10:16 AM EDT Gender Identity Male 02/15/2023 11:13 AM EDT Sexual Orientation Straight 02/15/2023 11 :13 AM EDT documented as of this encounter Miscellaneous Notes * Telephone Encounter - Nicholas Morataya - 06/20/2024 2:18 PM EST Tc from patient requesting a call back regarding: oxyCODONE (Roxicodone) 5 MG immediate release tablet * Telephone Encounter - Pk Varela - 06/20/2024 9:06 AM EST TC from pt requesting medication refill. Medications needing refill : oxyCODONE (Roxicodone) 5 MG immediate release tablet To be sent to: [facility]/pharmacy #[id number] - [address] documented in this encounter Plan of Treatment Upcoming Encounters Date Type Department Care Team (Late st Contact Info) Description 10/31/2024 9:15 AM EDT Office Visit [facility] [address] [place] [address] Daina Pichardo MD [address] [place] [address] 11/16/2024 9:00 AM EDT Clinical Support [facility] [address] [place] [address] Hanna Mark, RN [address] [place] [address] documented as of this encounter Visit Diagnoses Not on filedocumented in this encounter Additional Health Concerns Assessment Noted Time PHQ-9 Depression Total Score: 3 02/16/20 10:56 AM EDT documented as of this encounter Care Teams Horticultural Agent Relationship Specialty Start Date End Date Daina Pichardo MD [address] [place] [phone] PCP - General Internal Medicine 12/16/22 documented as of this encounter
--- OUTSIDE RECORDS SUMMARY | 2024-10-16 00:24 | XMS_ITS | Encounter Summary ---
Author Organization [employer] Address [address] [facility] 7[address] [place] [address] Care Team Providers Care Store Mgr Name Role Phone Daina Pichardo MD Primary Care Pro vider Encounter Details Date Type Department Care Team ([facility] st Contact Info) Description 06/20/2024 Orders Only [facility] [address] [place], [place] [phone] Zarina Alarcon MD [address] [place], [place] [phone] Social History Tobacco Use Types Packs/Day Years Used Date Smoking Tobacco: Never Smokeless Tobacco: Never Alcohol Use Standard Drinks/Week Comments Never 0 (1 standard drink = 0.6 oz pur e alcohol) Depression Answer Date Recorded Patient Health Questionnaire-9 Score 3 02/15/2023 Housing Stability Answer Date Recorded What is your housing situation today? I have balwindergiovanna levy 09/23/[address] you [...] Description 10/31/2024 9:15 AM EDT Office Visit [facility] [address] [place] [address] Daina Pichardo MD [address] [place] [phone] 11/16/2024 9:00 AM EDT Clinical Support [facility] [address] [place], [place] [phone] Hanna Mark, RN [address] [place] [address] documented as of this encounter Visit Diagnoses Not on filedocumented in this encounter Additional Health Concerns Assessment Noted Time PHQ-9 Depression Total Score: 3 02/16/20 23 10:56 AM EDT documented as of this encounter Care Teams Store Mgr Relationship Specialty Start Date End Date Daina Pichardo MD [address] [place] [phone] PCP - General Internal Medicine 12/16/22 documented as of this encounter
--- OUTSIDE RECORDS SUMMARY | 2024-10-16 00:24 | XMS_ITS | Encounter Summary ---
Author Organization [employer] Address [address] [place] [address] [place] [address] Care Team Providers Care Event Av Operator Name Role Phone Estephania Borrero Primary Care Provider +1- [phone] Daina Pichardo MD Primary Care Pro vider Encounter Details Date Type Department Care Team (Late Contact Info) Description 09/14/2022 Telephone [facility] [address] [place] [address] Estephania Borrero FNP [address] [place] [address] Dept [place] [address] Social History Tobacco Use Types Packs/Day Years [...] Encounters Date Type Department Care Team (Late Contact Info) Description 10/31/2024 9:15 AM EDT Office Visit [facility] [address] [place] [phone] Daina Pichardo MD [address] [place] [phone] 11/16/2024 9:00 AM EDT Clinical Support [facility] [address] [place] [address] Hanna Mark, RN [address] [place] [address] documented as of this encounter Visit Diagnoses Not on filedocumented in this encounter Additional Health Concerns Assessment Noted Time PHQ-9 Depression Total Score: 0 08/13/19 23 1:02 PM EST documented as of this encounter Care Teams Event Av Operator Relationship Specialty Start Date End Date Estephania Borrero FNP PCP - General Family Medicine 03/06/22 12/15/22 Daina Pichardo MD [address] [place] [phone] PCP - General Internal Medicine 12/16/22 documented as of this encounter
--- OUTSIDE RECORDS SUMMARY | 2024-10-16 00:24 | XMS_ITS | Encounter Summary ---
Author Organization [employer] Address [address] [place] [address] [place] [address] Care Team Providers Care Informatics Nurse Specialist Name Role Phone Estephania Borrero Primary Care Provider +1- [phone] Daina Pichardo MD Primary Care Pro vider Reason for Visit * Reason Comments Med Refill Encounter Details Date Type Department Care Team ([facility] Contact Info) Description 08/18/2022 Refill [facility] [address] [place] [phone] Estephania Borrero FNP [address] [place] [address] Dept [place] [address] Insomnia, unspecified type Social History Tobacco Use [...] Orientation Straight 02/15/2023 11 :13 AM EDT COVID-19 Exposure Response Date Recorded In the last 10 days, have yo u been in contact with someone who was confirmed or suspected to have Coronavirus/COVID-19? No / Unsure 08/10/2022 10:54 AM EST documented as of this encounter Plan of Treatment Upcoming Encounters Date Type Department Care Team (Late Contact Info) Description 10/31/2024 9:15 AM EDT Office Visit [facility] [address] [place] [address] Daina Pichardo MD [address] [place], [place] [phone] 11/16/2024 9:00 AM EDT Clinical Support [facility] [address] [place], [place] [phone] Hanna Mark, RN [address] [place], [place] [phone] documented as of this encounter Visit Diagnoses Diagnosis Insomnia, unspecified type documented in this encounter Additional Health Concerns Assessment Noted Time PHQ-9 Depression Total Score: 0 08/13/19 23 1:02 PM EST documented as of this encounter Care Teams Informatics Nurse Specialist Relationship Specialty Start Date End Date Estephania Borrero FNP PCP - General Family Medicine 03/06/22 12/15/22 Daina Pichardo MD [address] [place] [phone] PCP - General Internal Medicine 12/16/22 documented as of this encounter
--- OUTSIDE RECORDS SUMMARY | 2024-10-16 00:24 | XMS_ITS | Encounter Summary ---
Author Organization [employer] Address [address] [facility] 7t [place] [address] Care Team Providers Care Slip Cover Estimator Name Role Phone Daina Pichardo MD Primary Care Pro vider Encounter Details Date Type Department Care Team ([facility] st Contact Info) Description 09/06/2024 Orders Only [facility] [address] [place], [place] [phone] Zarina Alarcon MD [address] [place], [place] [phone] Social History Tobacco Use Types Packs/Day Years [...] Description 10/31/2024 9:15 AM EDT Office Visit [facility] [address] [place] [address] Daina Pichardo MD [address] [place] [phone] 11/16/2024 9:00 AM EDT Clinical Support [facility] [address] [place], [place] [phone] Hanna Mark, RN [address] [place] [address] documented as of this encounter Visit Diagnoses Not on filedocumented in this encounter Additional Health Concerns Assessment Noted Time PHQ-9 Depression Total Score: 3 02/16/20 23 10:56 AM EDT documented as of this encounter Care Teams Slip Cover Estimator Relationship Specialty Start Date End Date Daina Pichardo MD [address] [place] [phone] PCP - General Internal Medicine 12/16/22 documented as of this encounter
--- OUTSIDE RECORDS SUMMARY | 2024-10-16 00:24 | XMS_ITS | Encounter Summary ---
Author Organization [employer] Address [address] [place] [address] [place] [address] Care Team Providers Care Zoo Caretaker Name Role Phone Estephania Borrero Primary Care Provider +1- [phone] Daina Pichardo MD Primary Care Pro vider Encounter Details Date Type Department Care Team (Late Contact Info) Description 09/14/2022 Telephone [facility] MEDICINE [address] [place] [phone] Estephania Borrero FNP [address] [place] [address] Dept [place] [address] Social History Tobacco Use Types Packs/Day Years [...] Office Visit [facility] MEDICINE [address] [place] [address] [phone] Daina Pichardo MD [address] [place] [address] [phone] 11/16/2024 9:00 AM EDT Clinical Support [facility] CHC MED & PEDS [address] [place] [address] Hanna Mark, RN [address] [place] [address] documented as of this encounter Visit Diagnoses Not on filedocumented in this encounter Additional Health Concerns Assessment Noted Time PHQ-9 Depression Total Score: 0 08/13/19 23 1:02 PM EST documented as of this encounter Care Teams Zoo Caretaker Relationship Specialty Start Date End Date Estephania Borrero FNP PCP - General Family Medicine 03/06/22 12/15/22 Daina Pichardo MD [address] [place] [phone] PCP - General Internal Medicine 12/16/22 documented as of this encounter
--- OUTSIDE RECORDS SUMMARY | 2024-10-16 00:24 | XMS_ITS | Encounter Summary ---
Author Organization [facility] Address [address] [place] [address] Care Team Providers Care Floor Attendant Name Role Phone Ken Kai Yuliana Primary Care Provider +1- [phone] Encounter Details Date Type Department Care Team (Late st Contact Info) Description 05/31/2020 Orders Only [facility] Interventional Radiology [address] [place] [address] Angel Fan MD [address] [place] [address] Social History Tobacco Use Types Packs/Day Years Used Date Smoking Tobacco: Never Smokeless Tobacco: Never Comments:: Alcohol Use Standard Drinks/Week Comments No 0 (1 standard drink = 0.6 oz pur e alcohol) Sex and Gender Information Value Date Recorded Sex Assigned at Male 03/22/2023 6:30 PM EDT Legal Sex Male 9:23 AM EDT Gender Identity Male Sexual Orientation Straight 03/22/2023 6: 30 PM EDT documented as of this encounter Plan of Treatment Upcoming Encounters Date Type Department Care Team (Late st Contact Info) Description 01/17/2025 9:00 AM EDT Follow-Up [facility] G[facility]ology [facility] [address] [place] [address] Scrum Master: Josue Hamm MD PhD [address] [place] [address] documented as of this encounter Visit Diagnoses Not on filedocumented in this encounter Care Teams Floor Attendant Relationship Specialty Start Date End Date Daina Pichardo PCP - General 10/12/23 documented as of this encounter
--- OUTSIDE RECORDS SUMMARY | 2024-10-16 00:24 | XMS_ITS | Encounter Summary ---
Author Organization [employer] Address [address] [employer] [address] 7 [place] [address] Care Team Providers Care Fisher Name Role Phone Daina Pichardo MD Primary Care Pro vider Reason for Visit * Reason Onset Date Comments Med Refill 06/14/2023 Encounter Details Date Type Department Care Team (Late st Contact Info) Description 06/14/2023 Refill [facility] MEDICINE [address] [place] [address] Zarina Alarcon MD [address] [place] [address] Anxiety Social History Tobacco Use Types Packs/Day Years [...] 10/31/2024 9:15 AM EDT Office Visit [facility] MEDICINE [address] [place] [address] Daina Pichardo MD [address] [place] [address] 11/16/2024 9:00 AM EDT Clinical Support [facility] CHC MED & PEDS [address] [place], [place] [phone] Hanna Mark, RN [address] [place], [place] [phone] documented as of this encounter Visit Diagnoses Diagnosis Anxiety Anxiety state, unspecified documented in this encounter Additional Health Concerns Assessment Noted Time PHQ-9 Depression Total Score: 3 02/16/20 10:56 AM EDT documented as of this encounter Care Teams Fisher Relationship Specialty Start Date End Date Daina Pichardo MD [address] [place] [phone] PCP - General Internal Medicine 12/16/22 documented as of this encounter
--- OUTSIDE RECORDS SUMMARY | 2024-10-16 00:24 | XMS_ITS | Encounter Summary ---
Author Organization [employer] Address [address] [place] [address] [place] [address] Care Team Providers Care Livestock Brands Inspector Name Role Phone Estephania Borrero Primary Care Provider +1- [phone] Daina Pichardo MD Primary Care Pro vider Reason for Visit * Reason Comments Med Refill Encounter Details Date Type Department Care Team (Late Contact Info) Description 09/15/2022 Refill [facility] MEDICINE [address] [place] [address] [phone] Estephania Borrero FNP [address] [place] [address] Dept [place] [address] Crohn's disease with complication, unspecified gastrointestinal tract location (CMS/HCC) Social History Tobacco Use Types Packs/Day Years [...] Description 10/31/2024 9:15 AM EDT Office Visit [facility] MEDICINE [address] [place] [address] [phone] Daina Pichardo MD [address] [place], [place] [phone] 11/16/2024 9:00 AM EDT Clinical Support [facility] CHC MED & PEDS [address] [place] [address] Hanna Mark, RN [address] [place] [address] documented as of this encounter Visit Diagnoses Diagnosis Crohn's disease with complication, unspecified gastrointestinal tract location (CMS/HCC) documented in this encounter Additional Health Concerns Assessment Noted Time PHQ-9 Depression Total Score: 0 08/13/19 23 1:02 PM EST documented as of this encounter Care Teams Livestock Brands Inspector Relationship Specialty Start Date End Date Estephania Borrero FNP PCP - General Family Medicine 03/06/22 12/15/22 Daina Pichardo MD [address] [place] [address] [phone] PCP - General Internal Medicine 12/16/22 documented as of this encounter
--- OUTSIDE RECORDS SUMMARY | 2024-10-16 00:24 | XMS_ITS | Encounter Summary ---
Author Organization [employer] Address [address] [place] [address] [place] [address] Care Team Providers Care Squeegee Finisher Name Role Phone Estephania Borrero Primary Care Provider +1- [phone] Daina Pichardo MD Primary Care Pro vider Reason for Visit * Reason Comments Med Refill Encounter Details Date Type Department Care Team (Late Contact Info) Description 09/15/2022 Refill [facility] MEDICINE [address] [place] [address] [phone] Estephania Borrero FNP [address] [place] [address] Dept [place] [address] Crohn's disease with complication, unspecified gastrointestinal tract [...] Description 10/31/2024 9:15 AM EDT Office Visit [facility] MEDICINE [address] [place] [address] [phone] Daina Pichardo MD [address] [place], [place] [phone] 11/16/2024 9:00 AM EDT Clinical Support [facility] CHC MED & PEDS 505 [place] [address] Hanna Mark, RN [address] [place] [address] documented as of this encounter Visit Diagnoses Diagnosis Crohn's disease with complication, unspecified gastrointestinal tract location (CMS/HCC) documented in this encounter Additional Health Concerns Assessment Noted Time PHQ-9 Depression Total Score: 0 08/13/19 23 1:02 PM EST documented as of this encounter Care Teams Squeegee Finisher Relationship Specialty Start Date End Date Estephania Borrero FNP PCP - General Family Medicine 03/06/22 12/15/22 Daina Pichardo MD [address] [place] [address] [phone] PCP - General Internal Medicine 12/16/22 documented as of this encounter
--- OUTSIDE RECORDS SUMMARY | 2024-10-16 00:24 | XMS_ITS | Encounter Summary ---
Author Organization [employer] Address [address] [place] [address] Care Team Providers Care Construction Or Leak Gang Laborer Name Role Phone Daina Pichardo MD Primary Care Pro vider Reason for Visit * Reason Onset Date Comments Med Refill 08/09/2024 Encounter Details Date Type Department Care Team ([facility] st Contact Info) Description 08/09/2024 Telephone [facility] MEDICINE [address] [place] [address] Daina Pichardo MD [address] [place] [address] Med Refill Social History Tobacco Use Types [...] encounter Miscellaneous Notes * Telephone Encounter - Isabel Reyes LPN - 08/09/2024 9:54 AM EST Medication pended to provider for approval. * Telephone Encounter - Maricarmen Ny - 08/09/2024 9:45 AM EST TC from pt requesting medication refill. Medications needing refill : zolpidem (Ambien) 10 MG tablet To be sent to: [facility]/pharmacy #[id number] documented in this encounter Plan of Treatment Upcoming Encounters Date Type Department Care Team (Late st Contact Info) Description 10/31/2024 9:15 AM EDT Office Visit [facility] MEDICINE [address] [place] [address] Daina Pichardo MD [address] [place] [address] 11/16/2024 9:00 AM EDT Clinical Support [facility] CHC MED & PEDS [address] [place] [address] Hanna Mark, JULIANN [address] [place] [address] documented as of this encounter Visit Diagnoses Not on filedocumented in this encounter Additional Health Concerns Assessment Noted Time PHQ-9 Depression Total Score: 3 02/16/20 10:56 AM EDT documented as of this encounter Care Teams Construction Or Leak Gang Laborer Relationship Specialty Start Date End Date Daina Pichardo MD [address] [place] [address] PCP - General Internal Medicine 12/16/22 documented as of this encounter
--- OUTSIDE RECORDS SUMMARY | 2024-10-16 00:24 | XMS_ITS | Encounter Summary ---
Author Organization [employer] Address [address] [place] [address] Care Team Providers Care Grinder Set Up Operator Thread Tool Name Role Phone Daina Pichardo MD Primary Care Pro vider Reason for Visit * Reason Onset Date Comments Med Refill 10/11/2023 Encounter Details Date Type Department Care Team ([facility] st Contact Info) Description 10/11/2023 Telephone [facility] MEDICINE [address] [place] [address] Daina Pichardo MD [address] [place] [address] Med Refill Social History Tobacco Use Types [...] encounter Miscellaneous Notes * Telephone Encounter - Savanah Junior - 10/11/2023 9:15 AM EDT TC from pt requesting medication refill. Medications needing refill : clonazePAM (KlonoPIN) 1 MG tablet oxyCODONE (Roxicodone) 5 MG immediate release tablet To be sent to: [facility]/pharmacy #[id number] documented in this encounter Plan of Treatment Upcoming Encounters Date Type Department Care Team (Late st Contact Info) Description 10/31/2024 9:15 AM EDT Office Visit [facility] MEDICINE [address] [place] [address] Daina Pichardo MD [address] [place] [address] 11/16/2024 9:00 AM EDT Clinical Support [facility] CHC MED & PEDS [address] [place] [address] Hanna Mark, JULIANN [address] [place] [address] documented as of this encounter Visit Diagnoses Not on filedocumented in this encounter Additional Health Concerns Assessment Noted Time PHQ-9 Depression Total Score: 3 02/16/20 23 10:56 AM EDT documented as of this encounter Care Teams Grinder Set Up Operator Thread Tool Relationship Specialty Start Date End Date Daina Pichardo MD [address] [place] [phone] PCP - General Internal Medicine 12/16/22 documented as of this encounter
--- OUTSIDE RECORDS SUMMARY | 2024-10-16 00:24 | XMS_ITS | Clinical Summary ---
Author Organization [facility] Address [address] [place] [phone] Phone Care Team Providers Care Relocation Associate Name Role Phone Physician, Pcp Unknown Primary Care Provider Amita vailable Allergies Active Allergy Reactions Criticality Noted Date Comments Haloperidol Psychiatric High 01/11/2019 Other reaction(s): Delirium Ketorolac Hives Medium 06/03/2017 Meperidine Itching,Rash Medium 01/13/2018 Other reaction(s): Abdominal discomfort Metoclopramide Itching,Rash,Unknow n Medium 06/03/2017 Morphine Headache,Rash Medium 04/18/2015 Other reaction(s): Migraine Ondansetron Hives,Itching,Rash Medium 09/20/2017 Must have benadryl with this med per pt Prochlorperazine Itching,Rash Medium 06/03/2017 Sulfa (Sulfonamide Antibiotics) Rash Medium 06/03/2017 Trazodone Rash Low 03/10/2019 Medications BRANDY Luis, Pen 40 mg/0.4 mL pen 07/22/2022 Active clonazePAM (KlonoPIN) 1 mg tablet Take 1 tablet (1 mg total) by mouth 2 times daily as needed. Max Daily Amount: 2 mg 10/02/2020 Active cyanocobalamin (VITAMIN B-12) 1,000 mcg/mL injection INJECT 1 ML INTO THE SHOULDER, THIGH, OR BUTTOCKS EVERY 30 DAYS 12/21/2023 Active ferrous sulfate 325 mg (65 mg iron) EC tablet Take 1 tablet (325 mg total) by mouth every other day. 09/17/2020 Active loratadine (CLARITIN) 10 mg tablet Take 1 tablet (10 mg total) by mouth 1 (one) time each day. 02/26/2019 Active multivitamin (Daily-Davis) tablet TOME AMITA TABLETA TODOS LOS D? CON ALIMENTO 02/20/2019 Active omeprazole (PriLOSEC) [address] capsule Take 2 capsules (40 mg total) by mouth 1 (one) time each day. 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) Anxiety Social History Tobacco Use Types Packs/Day Years Used Date Smoking Tobacco: Never Smokeless Tobacco: Never Tobacco Cessation:Counseling Given: Not Answered Alcohol Use Standard Drinks/Week Comments Never 0 (1 standard drink = 0.6 oz pur e alcohol) Sex and Gender Information Value Date Recorded Sex Assigned at Male 06/14/2024 1:14 PM EST Legal Sex Male 2:34 AM EST Gender Identity Male 06/14/2024 1:14 PM EST Sexual Orientation Not on file Obstetrics History Last Filed Vital Signs Vital Sign Reading Time Taken Comments Blood Pressure 112/85 06/14/2024 3:32 PM EST Pulse 72 06/14/2024 3:32 PM EST Temperature 36.8 ??C (98.2 ??F) 06/14/2024 3:32 PM ES T Respiratory Rate 18 06/14/2024 3:32 PM EST Oxygen Saturation 100% 06/14/2024 3:32 PM EST Inhaled Oxygen Concentration - - Weight 70.3 kg (155 lb) 06/14/2024 11:55 AM EST Height 165.1 cm (5' 5 ) 06/14/2024 11:55 AM EST Body Mass Index 25.79 06/14/2024 11:55 AM EST Plan of Treatment Health Maintenance Due Date Last Done Comments Colorectal Cancer Screening: Colonoscopy 06/14/2022 HIV Screening 06/14/2022 Medicare Annual Wellness Visit 06/14/2022 Social Influencers of Health Screening 06/14/2022 Depression Screening 02/16/2024 02/15/2023 COVID-19 Vaccine ( season) 2024 07/07/2021, 12/28/2020, 11/30/2020 DTaP,Tdap,and Td Vaccines (5 - Td or Tdap) 01/12/2028 01/11/2018, 05/11/2012, 11/10/2010, Additional history exists Cholesterol Screening (Lipid Panel) 12/19/2028 12/20/2023 Pneumococcal Vaccine: Pediatrics (0 to 5 Years) and At-Risk Patients (6 to 64 Years) Aged Out 04/04/2018, 01/11/2018, 01/21/2013, Additional history exists No longer eligible based on patient's age to complete this topic Hepatitis A Vaccines Aged Out 02/23/2022 No long er eligible based on patient's age to complete this topic Hepatitis C Screening Completed 03/25/2023, 018 Hepatitis B Vaccines Completed 12/21/2023, 06/11/2023, 04/13/2023, Additional history exists Influenza Vaccine Completed 03/03/2024, , 03/24/2022, Additional history exists HIB Vaccines Aged Out No longer eligi ble based on patient's age to complete this topic HPV Vaccines Aged Out No longer eligi ble based on patient's age to complete this topic IPV Vaccines Aged Out No longer eligi ble based on patient's age to complete this topic MMR Vaccines Aged Out No longer eligi ble based on patient's age to complete this topic Meningococcal ACWY Vaccine Aged Out N o longer eligible based on patient's age to complete this topic Meningococcal B Vacine Aged Out No lo nger eligible based on patient's age to complete this topic RSV Immunization Patients Under 20 months Aged Out No longer eligible based on patient's age to complete this topic Varicella Vaccines Aged Out No longer eligible based on patient's age to complete this topic Insurance [facility] MEDIC[facility] Member Subscriber Plan / Payer (Ef fective 2024-Present) Name:Jony Julio Relation to Subscriber:Self Name:Jony Julio Payer ID:[id number] Group ID:Not on file Type:Not on file Address: [address] [id number] Care Teams Relocation Associate Relationship Specialty Start Date End Date Physician, Pcp Unknown PCP - General 06/14/24
--- OUTSIDE RECORDS SUMMARY | 2024-10-16 00:24 | XMS_ITS | Encounter Summary ---
Author Organization [employer] Address [address] [facility] 7 [place] [address] Care Team Providers Care Banquet Stewardess Name Role Phone Daina Pichardo MD Primary Care Pro vider Encounter Details Date Type Department Care Team (Late st Contact Info) Description 06/15/2024 Orders Only [facility] [address] [place], [place] [phone] Provider, MD Real Social History Tobacco Use Types Packs/Day Years [...] 10/31/2024 9:15 AM EDT Office Visit [facility] MEDICINE [address] [place] [address] Daina Pichardo MD 230 [place] [address] 11/16/2024 9:00 AM EDT Clinical Support [facility] CHC MED & PEDS 505 [place] [address] Hanna Mark RN [address] [place] [address] documented as of this encounter Procedures Procedure Name Priority Date/Time Associated Diagnosis Comments CT ABD AND PELVIS Routine 06/14/2024 8:42 AM EST documented in this encounter Results * CT ABD AND PELVIS (06/14/2024 8:42 AM EST) Anatomical Region Laterality Modality Body, Pelvis, Abdomen Computed T omography us Historical Provider MD NIEVES CT PROCEDURES Final R esult documented in this encounter Visit Diagnoses Not on filedocumented in this encounter Additional Health Concerns Assessment Noted Time PHQ-9 Depression Total Score: 3 02/16/20 10:56 AM EDT documented as of this encounter Care Teams Banquet Stewardess Relationship Specialty Start Date End Date Daina Pichardo MD [address] [place] [address] PCP - General Internal Medicine 12/16/22 documented as of this encounter
--- OUTSIDE RECORDS SUMMARY | 2024-10-16 00:24 | XMS_ITS | Encounter Summary ---
Author Organization [employer] Address [address] [place] [address] [place] [address] Care Team Providers Care Blasting Contract Miner Name Role Phone Daina Pichardo MD Primary Care Pro vider Reason for Visit * Reason Comments Med Refill Encounter Details Date Type Department Care Team (Late st Contact Info) Description 09/10/2023 Refill [facility] MEDICINE [address] [place], [place] [phone] Daina Pichardo MD [address] [place] [address] Insomnia, unspecified type; Anxiety Social History Tobacco Use Types Packs/Day [...] Description 10/31/2024 9:15 AM EDT Office Visit [facility] MEDICINE [address] [place] [address] Daina Pichardo MD [address] [place] [address] 11/16/2024 9:00 AM EDT Clinical Support [facility] CHC MED & PEDS [address] [place] [address] Hanna Mark, RN [address] [place] [address] documented as of this encounter Visit Diagnoses Diagnosis Insomnia, unspecified type Anxiety Anxiety state, unspecified documented in this encounter Additional Health Concerns Assessment Noted Time PHQ-9 Depression Total Score: 3 02/16/20 23 10:56 AM EDT documented as of this encounter Care Teams Blasting Contract Miner Relationship Specialty Start Date End Date Daina Pichardo MD [address] [place] [address] PCP - General Internal Medicine 12/16/22 documented as of this encounter
--- OUTSIDE RECORDS SUMMARY | 2024-10-16 00:24 | XMS_ITS | Clinical Summary ---
Author Organization [employer] Address [address] [place] [address] 7 [place] [address] Care Team Providers Care Triple Valve Tester Name Role Phone Daina Pichardo MD Primary Care Pro vider Allergies Active Allergy Reactions Criticality Noted Date Comments Haloperidol High 01/11/2019 Other reaction(s): Delirium Ketorolac Hives Medium 06/03/2017 Meperidine Itching,Rash Medium 01/13/2018 Other reaction(s): Abdominal discomfort Metoclopramide Itching,Rash Medium 06/03/2017 Morphine Rash Medium 04/18/2015 Other reaction(s): Migraine Ondansetron Hives,Itching,Rash Medium 09/20/2017 Must have benadryl with this med per pt Prochlorperazine Itching,Rash Medium 06/03/2017 Sulfa Antibiotics Rash Medium 06/03/2017 Trazodone Rash Low 03/10/2019 Medications promethazine (Phenergan) 25 MG tablet TAKE 1 TABLET BY MOUTH EVERY 6 HOURS NEEDED FOR NAUSEA OR VOMITING 07/14/19 23 Active Multiple Vitamin (Daily-Davis Multivitamin) tablet TOME MARISABEL TABLETA TODOS LOS D CON ALIMENTO 01/31/20 22 Active Humira Pen 40 MG/0.4ML Pen-injector Kit pen-injector 07/22/19 23 Active riboflavin (vitamin B2) 100 mg tablet tablet Take 2 tablets (200 mg) by mouth twice daily Active ergocalciferol (Vitamin D-2) 1.25 MG (72005 UT) capsule Take 50,000 Units by mouth 1 (one) time per week. 01/22/20 20 Active hydrocortisone 1 % creamIndication s:Ileal pouchitis (CMS/HCC) [facility] 56 g 1 11/26/19 23 Active ferrous gluconate (Fergon) 324 (38 Fe) MG tabletIndicatio ns:Crohn's disease of small intestine with complication (CMS/HCC),Ileal pouchitis (CMS/HCC) Take 1 tablet Every Wednesday, Wednesday, and Wednesday with food 30 tablet 11 08/31/19 24 Active dicyclomine (Bentyl) 10 MG capsule Take 10 mg by mouth 4 times daily. 09/05/19 24 Active cyanocobalamin (Vitamin B-12) 1000 MCG/ML injectionIndica tions:Crohn's disease of small intestine with complication (CMS/HCC),Ileal pouchitis (CMS/HCC) INJECT 1 ML INTO THE SHOULDER, THIGH, OR BUTTOCKS EVERY 30 DAYS 1 mL 11 12/21/19 24 Active Syringe/Needle, Disp, 25G X 5/8 3 ML misc USE TO INJECT VITAMIN B12 ONCE A MONTH 12 each 3 02/11/20 24 Active naloxone (Narcan) 4 mg/0.1 mL nasal spray Administer 1 spray (4 mg) into affected nostril(s) if needed for opioid reversal or respiratory depression. 2 each 1 09/06/19 25 Active loratadine (Claritin) 10 MG tablet TAKE 1 TABLET BY MOUTH EVERY DAY 90 tablet 09/26/19 25 Active omeprazole (PriLOSEC) [address] capsule TAKE 1 CAPSULE BY MOUTH BEFORE BREAKFAST. DO NOT CRUSH OR CHEW. 90 capsule 10/03/19 25 Active zolpidem (Ambien) 10 MG tabletIndicatio ns:Insomnia, unspecified type TAKE 1 TABLET BY MOUTH IF NEEDED AT BEDTIME FOR SLEEP X 28 DAYS 28 tablet 10/03/19 25 Active clonazePAM (KlonoPIN) 1 MG tabletIndicatio ns:Anxiety Take 1 tablet (1 mg) by mouth if needed in the morning and at bedtime for anxiety for up to 28 days. TAKE 1 TABLET (1 MG) BY MOUTH IF NEEDED IN THE MORNING AND AT BEDTIME FOR ANXIETY FOR UP TO 28 DAYS. 40 tablet 10/03/19 25 2024 Active oxyCODONE (Roxicodone) 5 MG immediate release tabletIndicatio ns:Pain Take 2 tablets (10 mg) by mouth every 8 (eight) hours if needed for severe pain for up to 27 days. Take 1-2 tablets (5-10 mg) by mouth every 8 (eight) hours if needed for severe pain for up to 27 days. 160 tablet 10/03/19 25 2024 Active loratadine (Claritin) 10 MG tablet TAKE 1 TABLET BY MOUTH EVERY DAY 90 tablet 06/05/20 24 2024 Discontinued(R eorder (will not trigger notification to Pharmacy)) omeprazole (PriLOSEC) [address] capsule TAKE 1 CAPSULE BY MOUTH BEFORE BREAKFAST. DO NOT CRUSH OR CHEW. 90 capsule 06/29/20 24 2024 Discontinued oxyCODONE (Roxicodone) 5 MG immediate release tabletIndicatio ns:Pain Take 2 tablets (10 mg) by mouth every 8 (eight) hours if needed for severe pain for up to 27 days. Take 1-2 tablets (5-10 mg) by mouth every 8 (eight) hours if needed for severe pain for up to 27 days. 160 tablet 09/06/19 25 2024 Discontinued(R eorder (will not trigger notification to Pharmacy)) clonazePAM (KlonoPIN) 1 MG tabletIndicatio ns:Anxiety Take 1 tablet (1 mg) by mouth if needed in the morning and at bedtime for anxiety for up to 28 days. TAKE 1 TABLET (1 MG) BY MOUTH IF NEEDED IN THE MORNING AND AT BEDTIME FOR ANXIETY FOR UP TO 28 DAYS. 40 tablet 09/06/19 25 2024 Discontinued(R eorder (will not trigger notification to Pharmacy)) zolpidem (Ambien) 10 MG tabletIndicatio ns:Insomnia, unspecified type TAKE 1 TABLET BY MOUTH IF NEEDED AT BEDTIME FOR SLEEP X 28 DAYS 28 tablet 09/06/19 25 2024 Discontinued(R eorder (will not trigger notification to Pharmacy)) Active Problems Problem Noted Date Diagnosed Date Hyperlipidemia 04/13/2023 CYDNEY (obstructive sleep apnea) 04/13/2023 Depression with anxiety 02/16/2023 Health care maintenance 02/16/2023 Nephrolithiasis 02/16/2023 History of colectomy 06/09/2018 Crohn's disease of small intestine with complica tion 01/11/2018 Overview (08/03/2022): Crohn's disease characteristics: ?? Diagnosis date and [...] and ileoanal J-pouch anastomosis in 2006 at [facility]. ?? IBD Complications: Recurrent small bowel obstructions of unclear cause; pouchitis. Prior history of anal abscess. Abnormal liver function tests: Unclear cause. Normal MRCP January 2018. ?? IBD Medications: Previously treated with prednisone, enemas, Asacol, Balsalazide. Humira started January 2018 after diagnosis of Crohn's disease. ?? Health Maintenance: PCV13 and TDAP January 2018. Last Assessment & Plan: Patient reporting up to 15 bowel movements [...] and then presented to the hospital at [facility]. He therefore missed his colonoscopy. Patient's [...] will start him on a prednisone taper. Migraine 02/01/2012 Resolved Problems Problem Noted Date Diagnosed Date Resolved Date Left eye pain 02/16/2023 04/13/2023 Extensor carpi ulnaris tendinitis 09/19/2021 02/16/2023 Perianal abscess 06/02/2017 02/15/2023 Complications of intestinal pouch 01/04/2017 02/16/2023 Elevated LFTs 01/31/2013 04/13/2023 Backache 02/01/2012 02/16/2023 Anxiety 02/01/2012 02/16/2023 Encounters Date Type Department Care Team Description 10/02/2024 Refill [facility] [address] [place] [address] Daina Pichardo MD Insomnia, unspecified type 10/02/2024 Refill [facility] [address] [place] [address] Daina Pichardo MD Anxiety; Pain 10/02/2024 Refill [facility] [address] [place] [address] Lavern Bowers MD 09/24/2024 Refill [facility] [address] [place] [address] Daina Pichardo MD 09/06/2024 Telephone [facility] [address] [place] [address] Hanna Mark RN 09/06/2024 Orders Only [facility] [address] [place] [address] Zarina Alarcon MD 09/05/2024 Refill [facility] [address] [place] [address] Zarina Alarcon MD Pain; Anxiety; Insomnia, unspecified type 08/29/2024 9:00 AM EST Clinical Support [facility] [address] [place] [address] Hanna Mark, JULIANN Back pain, unspecified back location, unspecified back pain laterality, unspecified chronicity 08/29/2024 Telephone [facility] [address] [place] [address] Hanna Mark RN 08/29/2024 Travel 08/23/2024 Travel 08/09/2024 Telephone [facility] [address] [place] [address] Daina Pichardo MD Med Refill 08/09/2024 Refill [facility] [address] [place] [address] Zarina Alarcon MD Insomnia, unspecified type 08/08/2024 Refill [facility] [address] [place] [address] Daina Pichardo MD Pain; Anxiety 08/04/2024 Telephone [facility] [address] [place] [address] Nell Tejeda [place] October Recall from Last 3 Months Immunizations Name Administration Dates Next Due DT (pediatric) 11/10/2010 Hep A, Adult 02/23/2022 Hep B, Adolescent or Pediatric 11/02/2001,2000 Hep B, adult 12/21/2023,,04/13/2023,02/23 Influenza Injectable Quadriv alant Preservative Free IIV4 MDCK 03/24/2022 Influenza injectable quadriv alent preservative free 02/24/2023,03/18/2021,03/19/2020,03/05,04/06/2018,03/31/2017,03/13/2016 Influenza, IIV3, injectable 10/22/2010 Influenza, Split (incl. snehal fied surface antigen) 08/02/2012 Influenza, seasonal, injecta ble, preservative free 03/03/2024 Pneumococcal Conjugate PCV 13 01/11/2018 Pneumococcal Polysaccharide PPSV23 04/04,01/21/2013,05/11/2012,12/16 TD (adult), 2 Lf tetanus tox oid, preservative free, adsorbed 03/08/2001 Tdap 01/11/2018,05/11/2012 Family History Medical History Relation Name Comments Heart disease Father Relation Name Status Comments Father Social History Tobacco Use Types Packs/Day Years [...] Orientation Straight 02/15/2023 11 :13 AM EDT Last Filed Vital Signs Vital Sign Reading Time Taken Comments Blood Pressure 130/82 12/21/2023 9:07 AM EDT Pulse 68 12/21/2023 9:07 AM EDT Temperature 36.7 ??C (98.1 ??F) 12/21/2023 9:07 AM ED T Respiratory Rate 20 12/21/2023 9:07 AM EDT Oxygen Saturation 98% 12/21/2023 9:07 AM EDT Inhaled Oxygen Concentration - - Weight 67.9 kg (149 lb 9.6 oz) 12/21/2023 9:07 A M EDT Height 165.1 cm (5' 5 ) 12/21/2023 9:07 AM EDT Body Mass Index 24.89 12/21/2023 9:07 AM EDT Plan of Treatment Upcoming Encounters Date Type Department Care Team (Late st Contact Info) Description 10/31/2024 9:15 AM EDT Office Visit [facility] [address] [place] [address] Daina Pichardo MD [address] [place], [place] [phone] 11/16/2024 9:00 AM EDT Clinical Support [facility] [address] [place], [place] [phone] Hanna Mark, JULIANN [address] [place], [place] [phone] Health Maintenance Due Date Last Done Comments Alcohol/Substance Use Screening 1990 Family Planning (PISQ) 1993 Depression Screening 02/16/2024 02/15/2023, 02/16/20 23 COVID-19 Vaccine ( season) 2024 07/07/2021, 12/28/2020, 11/30/2020 SDOH Screening 09/22/2024 09/23/2023 Tobacco Screening 12/20/2024 12/21/2023 DTaP/Tdap/Td Vaccines (3 - Td or Tdap) 01/12/2028 01/11/2018, 05/11/2012, 03/08/2001 Zoster Vaccines (1 of 2) 2028 Lipid Panel 12/19/2028 12/20/2023, 03/25/2023 RSV Patients and Patients Aged 60 years or older (1 - 1-dose 75+ series) 2053 Pneumococcal Vaccine: Pediatrics (0 to 5 Years) and At-Risk Patients (6 to 49) Years) Aged Out 04/04/2018, 01/11/2018, 01/21/2013, Additional history exists No longer eligible based on patient's age to complete this topic Hepatitis A Vaccines Aged Out 02/23/2022 No long er eligible based on patient's age to complete this topic HIV Screening Completed 03/25/2023 Hepatitis C Screening Completed 03/25/2023 Hepatitis B Vaccines Completed 12/21/2023, 06/11/2023, 04/13/2023, [...] patient's age to complete this topic Meningococcal Vaccine Aged Out No yo jeannine eligible based on patient's age to complete this topic RSV under 20 months Aged Out No longe r eligible based on patient's age to complete this topic Rotavirus Vaccines Aged Out No longer eligible based on patient's age to complete this topic Procedures Procedure Name Priority Date/Time Associated Diagnosis Comments POCT JUVE-14 URINE DRUG SCREEN Routine 08/29/2024 9:16 AM EST Back pain, unspecified back location, unspecified back pain laterality, unspecified chronicity LIPID PANEL, STANDARD Routine 12/20/2023 8:58 AM EDT Hyperlipidemia, unspecified hyperlipidemia type HEPATITIS C AB W/REFL TO HCV RNA, QN, PCR Routine 03/25/2023 10:15 AM EDT Health care maintenance HIV ANTIBODY/ANTIGEN ([place] D[facility]) Routine 03/25/2023 10:15 AM EDT from Last 3 Months or Most Recently Relevant to Health Maintenance Results * POCT JUVE-14 Urine Drug Screen (08/29/2024 9:16 AM EST) Oxycodone Screen, Urine Positive Urine Urine specimen obtained by clean catch procedure / Unknown 08/29/2024 9:16 AM EST Narrative Hanna Mark, RN - 08/29/2024 9:16 AM EST Lot# [id number] Exp: 02-28-26 Daina Quinn MD POINT OF CARE BEATRIZ T ENTER/EDIT ORDERABLES Final Result * Lipid Panel, Standard (12/20/2023 8:58 AM EDT) Triglycerides 107 <150 mg/dL [facility] Comment:Desirable Triglyceri de: less than 150 mg/dLBorderline High Triglyceride 150-199 mg/dLHigh Triglyceride: 200-499 mg/dLVery High Triglyceride: greater than or equal to 5OO mg/dL Cholesterol 185 <200 mg/dL [facility] Comment:Desirable Cholestero l: less than 200 mg/dLBorderline High Cholesterol: 200-239 mg/dLHigh Cholesterol: greater than 239 mg/dL LDL Cholesterol Calculated 97 <100 mg/dL [facility] Comment:Desirable LDL: less than 100 mg/dLNear Optimal/Above Optimal LDL: 110- 129 mg/dLBorderline High LDL: 130-159 mg/dLHigh LDL: 160-189 mg/dLVery High LDL: greater than or equal to 190 mg/dL HDL Cholesterol 67 >40 mg/dL [facility] Comment:Desirable HDL: great er than 40 mg/dL Note: This HDL assay may give artificially low results in patients with liver disease. Blood Venous blood specimen / Unknown 12/20/2023 8:58 AM EDT 12/20/2023 11:44 AM EDT us Daina Quinn MD LAB BLOOD ORDERAB LES Final Result [facility] [address] [place] [phone] * HIV Ab/Ag ([facility]) (03/25/2023 10:15 AM EDT) HIV AB/AG Nonreactive Nonreactive [facility] Comment:HIV-1 p24 Ag and/or HIV-1/HIV-2 Ab not detected.A test result that is nonreactive does not exclude thepossibility of exposure to or infection with HIV-1 and/orHIV-2. Nonreactive results in this assay for individualswith prior exposure to HIV-1 and/or HIV-2 may be due toantigen and antibody levels that are below the limit ofdetection of this assay.The [employer] HIV Ag/Ab Combo assay result andsupplemental assay results should be interpreted inconjunction with the patient's clinical presentation,history and other laboratory results. If the results areinconsistent with clinical evidence, additional testing issuggested to confirm the result. 03/25/2023 10:1 5 AM EDT 03/25/2023 11:28 AM EDT us Daina Quinn MD LAB BLOOD ORDERAB LES Final Result Performing Organization Address [facility] Co de Phone Number [facility] [address] [place] [address] [phone] * Hepatitis C Antibody with Reflex to HCV, RNA, Quantitative, Real-Time PCR (03/25/2023 10:15 AM EDT) Hepatitis C Antibody Nonreactive Nonreactive [facility] Comment:Antibodies to HCV no t detected; does not exclude early acuteHCV infection. Blood Venous blood specimen / Unknown 03/25/2023 10:15 AM EDT 03/25/2023 11:28 AM EDT us Daina Quinn MD LAB BLOOD ORDERAB LES Final Result Performing Organization Address [facility] Co de Phone Number [facility] [address] [place] [phone] from Last 3 Months or Most Recently Relevant to Health Maintenance Insurance # [place] [id number] [facility] Care Teams Triple Valve Tester Relationship Specialty Start Date End Date Daina Pichardo MD [address] [place] [phone] PCP - General Internal Medicine 12/16/22
--- OUTSIDE RECORDS SUMMARY | 2024-10-16 00:24 | XMS_ITS | Encounter Summary ---
Author Organization [employer] Address [address] [place] [phone] Care Team Providers Care Maintenance Machinist Name Role Phone Daina Pichardo MD Primary Care Pro vider Reason for Visit * Reason Onset Date Comments Med Refill 09/10/2023 Encounter Details Date Type Department Care Team (Late st Contact Info) Description 09/10/2023 Refill [facility] [address] [place] [address] Daina Pichardo MD [address] [place] [address] Anxiety Social History Tobacco Use Types Packs/Day [...] 10/31/2024 9:15 AM EDT Office Visit [facility] [address] [place] [address] Daina Pichardo MD [address] [place] [phone] 11/16/2024 9:00 AM EDT Clinical Support [facility] [address] [place] [address] Hanna Mark, RN [address] [place], [place] [phone] documented as of this encounter Visit Diagnoses Diagnosis Anxiety Anxiety state, unspecified documented in this encounter Additional Health Concerns Assessment Noted Time PHQ-9 Depression Total Score: 3 02/16/20 10:56 AM EDT documented as of this encounter Care Teams Maintenance Machinist Relationship Specialty Start Date End Date Daina Pichardo MD [address] [place] [phone] PCP - General Internal Medicine 12/16/22 documented as of this encounter
--- OUTSIDE RECORDS SUMMARY | 2024-10-16 00:24 | XMS_ITS | Encounter Summary ---
Author Organization [employer] Address [address] [facility] 7 [place] [address] Care Team Providers Care Commanding Officer Traffic Division Name Role Phone Daina Pichardo MD Primary Care Pro vider Reason for Visit * Reason Onset Date Comments Med Refill 06/05/2023 Encounter Details Date Type Department Care Team ([facility] st Contact Info) Description 06/05/2023 Refill [facility] [address] [place] [address] Daina Pichardo MD [address] [place] [address] Complications of intestinal pouch (CMS/HCC); Crohn's disease of small intestine with complication (CMS/HCC) Social History Tobacco Use Types Packs/Day Years Used Date Smoking Tobacco: Never Smokeless Tobacco: Never Alcohol Use Standard Drinks/Week Comments Never 0 (1 standard drink = 0.6 oz pur e alcohol) Depression Answer Date Recorded Patient Health Questionnaire-9 Score 3 02/15/2023 Housing Stability Answer Date Recorded What is your housing situation today? I have balwinder sing 04/26/[address] you li [...] enough money to get more: Never True 10/ Transportation Answer Date Recorded In the past [...] Description 10/31/2024 9:15 AM EDT Office Visit [facility] [address] [place] [address] Daina Pichardo MD [address] [place] [phone] 11/16/2024 9:00 AM EDT Clinical Support [facility] [address] [place] [address] Hanna Mark, RN [address] [place] [address] documented as of this encounter Visit Diagnoses Diagnosis Complications of intestinal pouch (CMS/HCC) Crohn's disease of small intestine with complication (CMS/HCC) documented in this encounter Additional Health Concerns Assessment Noted Time PHQ-9 Depression Total Score: 3 02/16/20 10:56 AM EDT documented as of this encounter Care Teams Commanding Officer Traffic Division Relationship Specialty Start Date End Date Daina Pichardo MD [address] [place] [phone] PCP - General Internal Medicine 12/16/22 documented as of this encounter
--- OUTSIDE RECORDS SUMMARY | 2024-10-16 00:24 | XMS_ITS | Encounter Summary ---
Author Organization [employer] Address [address] [place] [address] Care Team Providers Care Crane Man Name Role Phone Daina Pichardo MD Primary Care Pro vider Reason for Visit * Reason Onset Date Comments Med Refill 10/11/2023 Encounter Details Date Type Department Care Team (Late st Contact Info) Description 10/11/2023 Refill [facility] [address] [place] [address] Daina Pichardo MD [address] [place] [address] Anxiety Social History Tobacco Use Types Packs/Day [...] Description 10/31/2024 9:15 AM EDT Office Visit [facility] [address] [place] [address] Daina Pichardo MD [address] [place] [phone] 11/16/2024 9:00 AM EDT Clinical Support [facility] [address] [place] [address] Hanna Mark, RN [address] [place], [place] [phone] documented as of this encounter Visit Diagnoses Diagnosis Anxiety Anxiety state, unspecified documented in this encounter Additional Health Concerns Assessment Noted Time PHQ-9 Depression Total Score: 3 02/16/20 10:56 AM EDT documented as of this encounter Care Teams Crane Man Relationship Specialty Start Date End Date Daina Pichardo MD [address] [place] [phone] PCP - General Internal Medicine 12/16/22 documented as of this encounter
--- OUTSIDE RECORDS SUMMARY | 2024-10-16 00:24 | XMS_ITS | Clinical Summary ---
Author Organization [facility] Address [address] [place] [address] Care Team Providers Care Lawn Technician Name Role Phone Daina Pichardo Primary Care Provider Allergies Active Allergy Reactions Criticality Noted Date [...] 4 each 1 09/07/2024 7:54 PM EST 5 10/13/19 25 Active Problems Problem Noted [...] and ileoanal J-pouch anastomosis in 2006 at [facility]. ?? IBD Complications: Recurrent small bowel [...] and then presented to the hospital at [facility]. He therefore missed his colonoscopy. Patient's [...] (09/20/2017): Added automatically from request for surgery [id number] Diarrhea 09/20/2017 Overview (09/20/2017): Added automatically from request for surgery [id number] Perianal abscess 06/02/2017 Ileal pouchitis 02/23/2017 Abdominal pain 01/04/2017 Complications of intestinal pouch 01/04/2017 Encounters Date Type Department Care Team Description 10/04/2024 Refill [facility] [address] [place] [address] Food Preparation Kitchen Aide: Doris Rubio MD 08/11/2024 Refill [facility] [address] [place] [address] Food Preparation Kitchen Aide: Doris Rubio MD from Last 3 Months Immunizations Immunization Administration Dates Next Due Pneumococcal Conjugate Vaccine, 13 Valent 2017 Pneumococcal Polysaccharide Vaccine, 23 Valent 0 04/04/2018 Tetanus Toxoid, Reduced Diph theria Toxoid, and Acellular Pertussis Vaccine, Adsorbed 01/11/2018 Family History Medical History Relation Name Comments Hypertension Mother Other Other Family history of No pertinent family history Relation Name Status Comments Mother Other Social History Tobacco Use Types Packs/Day Years [...] Info) Description 01/17/2025 9:00 AM EDT Follow-Up [facility] [address] [place] [address] Food Preparation Kitchen Aide: Josue Hamm MD PhD [address] [place] [address] Health Maintenance Due Date Last Done Comments Cologuard 1978 Colonoscopy 1978 HIV Screening 1978 Sigmoidoscopy 03/10/2024 03/10/2019, 03/10/2019 COVID-19 Vaccine ( season) 2024 07/07/2021, 12/28/2020, 11/30/2020 Colon Cancer Screening 03/25/2024 FOBT / Fit Test 03/25/2024 03/25/2023 Alcohol/Substance Use Screening 07/12/2024 Depression Screening and Follow-Up 07/12/2024 Social Drivers of Health Annual Screening 07/12/2024 DTaP,Tdap,and Td Vaccines (4 - Td or Tdap) 01/12/2028 01/11/2018, 05/11/2012, 11/10/2010, Additional history exists RSV Vaccine (60+ years old and patients) (1 - 1-dose 75+ series) 2053 Pneumococcal Vaccine: Pediatric (0-5 Years) and At-Risk Patients (6-50 Years) Aged Out 04/04/2018, 01/11/2018, 01/21/2013, Additional history exists No longer eligible based on patient's age to complete this topic Hepatitis C Screening Completed 03/25/2023, 018 Hepatitis B Vaccines Completed 12/21/2023, 06/11/2023, 04/13/2023, Additional history exists Influenza Vaccine Completed 03/03/2024, , 03/24/2022, Additional history exists Procedures * Due to [place] Zeomat[employer] law, this organization might not be sharing negative HIV tests. Procedure Name Priority Date/Time Associated Diagnosis Comments HEPATITIS C RNA, QUANTITATIVE PCR W/REFLEX HCV GENOTYPE Routine 01/11/2018 12:08 PM EDT Crohn's disease of small intestine with complication from Last 3 Months or Most Recently Relevant to Health Maintenance Results * Due to [place] Zeomat[employer] law, this organization might not be sharing negative HIV tests. * Hepatitis C PCR w/Reflex HCV Genotype (01/11/2018 12:08 PM EDT) Pathologist [facility] Hcv RNA, Quantitative Real Time PCR <15 NOT DETECTED NOT DETECTED IU/mL 01/13/2018 10:07 PM EDT [facility] Hcv RNA, Quantitative Real Time PCR <1.18 NOT DETECTED NOT DETECTED Log IU/mL 01/13/2018 10:07 PM EDT [facility] Comment: This test was performed using Real-Time Polymerase Chain Reaction. Reportable Range: 15 IU/mL to 100,000,000 IU/mL (1.18 Log IU/mL to 8.00 Log IU/mL). The analytical performance characteristics of this assay have been determined by [employer]. The modifications have not been cleared or approved by the FDA. This assay has been validated pursuant to the CLIA Regulations and is used for clinical purposes. For more information on this test, go to: http://education.[employer]/faq/DNU11x2 (This link is being provided for informational/ Educational purposes only.) Blood specimen (specimen) Structure of peripheral vein / Unknown Venipuncture / Unknown 01/11/2018 12:08 PM EDT 01/11/2018 12:20 PM EDT [place]la [place] [address]/05/2018 10:07 PM EDT [facility] Received Date: us Luis Doherty MD LAB BLOOD ORDERABLES Edited Result - Final [facility] [address], [place] [address], [place] [phone] [facility] [address], [place] [address], [place] [phone] from Last 3 Months or Most Recently Relevant to Health Maintenance Insurance Advance Directives Documents on File Type Date Recorded Patient Slitting Machine Feeder Expl anation Health Care Proxy 06/02/2017 11:11 AM * Full Code (Latest Code Status on File) Date Activated Date Inactivated Comments 05/05/2024 3:58 PM 05/05/2024 7:04 PM Care Teams Lawn Technician Relationship Specialty Start Date End Date Daina Pichardo PCP - General 10/12/23
--- OUTSIDE RECORDS SUMMARY | 2024-10-16 00:24 | XMS_ITS | Encounter Summary ---
Author Organization [employer] Address [address] [place] [address] Care Team Providers Care Clinical Services Consultant Name Role Phone Daina Pichardo MD Primary Care Pro vider Reason for Visit * Reason Onset Date Comments Med Refill 07/11/2024 Encounter Details Date Type Department Care Team ([facility] st Contact Info) Description 07/11/2024 Telephone [facility] [address] [place] [address] Daina Pichardo MD [address] [place] [address] Med Refill Social History Tobacco Use Types [...] Telephone Encounter - Isabel Reyes LPN - 07/13/2024 10:21 AM EST Medication sent to [facility] #[id number] on 07/11/24 #30. * Telephone Encounter - Dakota Webber - 07/11/2024 9:16 AM EST TC from pt requesting medication refill. Medications needing refill : zolpidem (Ambien) 10 MG tablet To be sent to: [facility]/pharmacy #[id number] documented in this encounter Plan of Treatment Upcoming Encounters Date Type Department Care Team (Late st Contact Info) Description 10/31/2024 9:15 AM EDT Office Visit [facility] [address] [place] [address] Daina Pichardo MD [address] [place] [address] 11/16/2024 9:00 AM EDT Clinical Support [facility] [address] [place] [address] Hanna Mark, JULIANN [address] [place] [address] documented as of this encounter Visit Diagnoses Not on filedocumented in this encounter Additional Health Concerns Assessment Noted Time PHQ-9 Depression Total Score: 3 02/16/20 10:56 AM EDT documented as of this encounter Care Teams Clinical Services Consultant Relationship Specialty Start Date End Date Daina Pichardo MD [address] [place] [address] PCP - General Internal Medicine 12/16/22 documented as of this encounter
--- OUTSIDE RECORDS SUMMARY | 2024-10-16 00:24 | XMS_ITS | Encounter Summary ---
Author Organization [facility] Address [address] [place] [address] Care Team Providers Care Head Silverman Name Role Phone Daina Pichardo Primary Care Provider [phone]- [phone] Reason for Visit * Reason Onset Date Comments PAC RX Refill 10/12/2022 Encounter Details Date Type Department Care Team (Late st Contact Info) Description 10/12/2022 Telephone [facility] [address] [place] [address] Telephone Intake, Staff PAC RX Refill Social History Tobacco Use Types Packs/Day [...] PM EDT documented as of this encounter Miscellaneous Notes * Telephone Encounter - Kenyetta Rodriguez - 10/27/2022 9:30 AM EDT Pt still waiting for Anna and Budesonide. Pls send to [facility]/PHARMACY #[id number] - [place], [place] - [address] [facility] Pls call, Gloria; once sent - [phone] * Telephone Encounter - Geno Kee - 10/21/2022 8:42 AM EDT Prescription Request Drug name(s): budesonide Dose: 3mg Interval: 9mg a day for 28 days Date Last Filled: Quantity: Ordering provider: Vitaly Refill? (yes or no): no Pharmacy Information: Pharmacy Name: [facility] Address:[address] [facility] City: [place] [facility] Fax: Pt was seen yesterday. This prescription was to be called in as stated on visit summary paperwork. * Telephone Encounter - Linn Negro RN - 10/14/2022 10:44 AM EDT Using mud worker services spoke to patient he will reach out to his doctor in [place] and have himprescribe medication. Patient needs medication this week is it possible to refill for 1 month to ensure he gets set up with MD? He understands we will not fill unless he is seen here. * Telephone Encounter - Geno Moreau - 10/12/2022 10:48 AM EDT Prescription Request Drug name(s): Humira Dose: 40 Mg Interval: Every 7 days Date Last Filled: 3 weeks Quantity: 2 packs of 2 Ordering provider: Sabine Haider Refill? (yes or no): Y Pharmacy Information: Pharmacy Name: [facility] Pt's states that he hasn't received a call about refilling his humira and his final remaining dose was last documented in this encounter Plan of Treatment Upcoming Encounters Date Type Department Care Team (Late st Contact Info) Description 01/17/2025 9:00 AM EDT Follow-Up [facility] [address] [place] [address] [id number] Circuit Designer: Josue Hamm MD PhD [address] [place] [address] documented as of this encounter Visit Diagnoses Not on filedocumented in this encounter Care Teams Head Silverman Relationship Specialty Start Date End Date Daina Pichardo PCP - General 10/12/23 documented as of this encounter
--- OUTSIDE RECORDS SUMMARY | 2024-10-16 00:24 | XMS_ITS | Encounter Summary ---
Author Organization [employer] Address [address] [place] [address] [place] [address] Care Team Providers Care Monument Setter Helper Name Role Phone Daina Pichardo MD Primary Care Pro vider Reason for Visit * Reason Onset Date Comments Med Refill 08/23/2023 Encounter Details Date Type Department Care Team (Late st Contact Info) Description 08/23/2023 Refill [facility] [address] [place] [address] Daina Pichardo MD [address] [place] [address] Complications of intestinal pouch (CMS/HCC); Crohn's disease [...] housing situation today? I have balwindergiovanna levy 04/26/[address] you [...] Description 10/31/2024 9:15 AM EDT Office Visit [facility] [address] [place] [address] Daina Pichardo MD [address] [place] [address] 11/16/2024 9:00 AM EDT Clinical Support [facility] [address] [place] [address] Hanna Mark, RN [address] [place] [address] documented as of this encounter Visit Diagnoses Diagnosis Complications of intestinal pouch (CMS/HCC) Crohn's disease of small intestine with complication (CMS/HCC) documented in this encounter Additional Health Concerns Assessment Noted Time PHQ-9 Depression Total Score: 3 02/16/20 10:56 AM EDT documented as of this encounter Care Teams Monument Setter Helper Relationship Specialty Start Date End Date Daina Pichardo MD [address] [place] [address] PCP - General Internal Medicine 12/16/22 documented as of this encounter
--- OUTSIDE RECORDS SUMMARY | 2024-10-16 00:24 | XMS_ITS | Encounter Summary ---
Author Organization [employer] Address [address] [place] [address] [place] [address] Care Team Providers Care Washer Off Name Role Phone Daina Pichardo MD Primary Care Pro vider Reason for Visit * Reason Comments Med Change Request Encounter Details Date Type Department Care Team ([facility] st Contact Info) Description 09/28/2023 Refill [facility] [address] [place], [place] [phone] Daina Pichardo MD [address] [place] [address] Social History Tobacco Use Types Packs/Day Years [...] encounter Miscellaneous Notes * Telephone Encounter - Daina Quinn MD - 09/28/2023 7:04 PM EDT Sent new precription documented in this encounter Plan of Treatment Upcoming Encounters Date Type Department Care Team (Late st Contact Info) Description 10/31/2024 9:15 AM EDT Office Visit [facility] [address] [place] [address] Daina Pichardo MD [address] [place] [address] 11/16/2024 9:00 AM EDT Clinical Support [facility] [address] [place] [address] Hanna Mark, RN [address] [place] [address] documented as of this encounter Visit Diagnoses Not on filedocumented in this encounter Additional Health Concerns Assessment Noted Time PHQ-9 Depression Total Score: 3 02/16/20 10:56 AM EDT documented as of this encounter Care Teams Washer Off Relationship Specialty Start Date End Date Daina Pichardo MD [address] [place] [address] PCP - General Internal Medicine 12/16/22 documented as of this encounter
--- OUTSIDE RECORDS SUMMARY | 2024-10-16 00:24 | XMS_ITS | Encounter Summary ---
Author Organization [employer] Address [address] [place] [address] Care Team Providers Care Nursing Attendant Name Role Phone Daina Pichardo MD Primary Care Pro vider Reason for Visit * Reason Onset Date Comments Med Refill 05/11/2023 Encounter Details Date Type Department Care Team ([facility] st Contact Info) Description 05/11/2023 Telephone [facility] [address] [place] [address] Daina Pichardo MD [address] [place] [address] Med Refill Social History Tobacco Use Types [...] encounter Miscellaneous Notes * Telephone Encounter - Rosalind Alcocer - 05/11/2023 9:39 AM EDT Tc from pt requesting med refill on; oxyCODONE (Roxicodone) 5 MG immediate release tablet documented in this encounter Plan of Treatment Upcoming Encounters Date Type Department Care Team (Late st Contact Info) Description 10/31/2024 9:15 AM EDT Office Visit [facility] [address] [place] [address] Daina Pichardo MD [address] [place] [address] 11/16/2024 9:00 AM EDT Clinical Support [facility] [address] [place] [address] Hanna Mark, JULIANN [address] [place] [address] documented as of this encounter Visit Diagnoses Not on filedocumented in this encounter Additional Health Concerns Assessment Noted Time PHQ-9 Depression Total Score: 3 02/16/20 10:56 AM EDT documented as of this encounter Care Teams Nursing Attendant Relationship Specialty Start Date End Date Daina Pichardo MD [address] [place] [address] PCP - General Internal Medicine 12/16/22 documented as of this encounter
--- OUTSIDE RECORDS SUMMARY | 2024-10-16 00:24 | XMS_ITS | Encounter Summary ---
Author Organization [employer] Address [address] [place] [address] Care Team Providers Care Records Coordinator Name Role Phone Daina Pichardo MD Primary Care Pro vider Reason for Visit * Reason Onset Date Comments Med Refill 08/20/2023 Encounter Details Date Type Department Care Team ([facility] st Contact Info) Description 08/20/2023 Telephone [facility] [address] [place] [address] Daina Pichardo MD [address] [place] [address] Med Refill Social History Tobacco Use Types [...] encounter Miscellaneous Notes * Telephone Encounter - Sylvia Corrales - 08/20/2023 11:11 AM EST TC from pt requesting medication refill. Medications needing refill : oxyCODONE (Roxicodone) 5 MG immediate release tablet To be sent to: [facility]/pharmacy #[id number] - [address] documented in this encounter Plan of Treatment Upcoming Encounters Date Type Department Care Team (Late st Contact Info) Description 10/31/2024 9:15 AM EDT Office Visit [facility] [address] [place] [address] Daina Pichardo MD [address] [place] [address] 11/16/2024 9:00 AM EDT Clinical Support [facility] [address] [place] [address] Hanna Mark, JULIANN [address] [place] [address] documented as of this encounter Visit Diagnoses Not on filedocumented in this encounter Additional Health Concerns Assessment Noted Time PHQ-9 Depression Total Score: 3 02/16/20 23 10:56 AM EDT documented as of this encounter Care Teams Records Coordinator Relationship Specialty Start Date End Date Daina Pichardo MD [address] [place] [address] PCP - General Internal Medicine 12/16/22 documented as of this encounter
--- OUTSIDE RECORDS SUMMARY | 2024-10-16 00:24 | XMS_ITS | Encounter Summary ---
Author Organization [employer] Address [address] [place] [address] [place] [address] Care Team Providers Care Janitor Caretaker Name Role Phone Estephania Borrero Primary Care Provider +1- [phone] Daina Pichardo MD Primary Care Pro vider Reason for Visit * Reason Comments Med Refill Encounter Details Date Type Department Care Team (Late Contact Info) Description 10/14/2022 Refill [facility] MED[facility]INE [address] [place] [address] Estephania Borrero FNP [address] [place] [address] [place] [address] Crohn's disease with complication, unspecified gastrointestinal tract location (CMS/HCC); Insomnia, unspecified type Social History Tobacco Use [...] suspected to have Coronavirus/COVID-19? No / Unsure 10/13/2022 12:16 PM EDT documented as of this encounter Plan of Treatment Upcoming Encounters Date Type Department Care Team (Late Contact Info) Description 10/31/2024 9:15 AM EDT Office Visit [facility] MED[facility]INE [address] [place] [address] Daina Pichardo MD [address] [place] [address] 11/16/2024 9:00 AM EDT Clinical Support [facility] [address] [place] [address] Hanna Mark, JULIANN [address] [place] [address] documented as of this encounter Visit Diagnoses Diagnosis Crohn's disease with complication, unspecified gastrointestinal tract location (CMS/HCC) Insomnia, unspecified type documented in this encounter Additional Health Concerns Assessment Noted Time PHQ-9 Depression Total Score: 0 08/13/19 23 1:02 PM EST documented as of this encounter Care Teams Janitor Caretaker Relationship Specialty Start Date End Date Estephania Borrero FNP PCP - General Family Medicine 03/06/22 12/15/22 Daina Pichardo MD [address] [place] [address] PCP - General Internal Medicine 12/16/22 documented as of this encounter
--- OUTSIDE RECORDS SUMMARY | 2024-10-16 00:24 | XMS_ITS | Encounter Summary ---
Author Organization [employer] Address [address] [facility] 7 [place] [address] Care Team Providers Care Mobile Manager Name Role Phone Daina Pichardo MD Primary Care Pro vider Reason for Visit * Reason Onset Date Comments Med Refill 06/14/2023 Encounter Details Date Type Department Care Team (Late st Contact Info) Description 06/14/2023 Refill [facility] [address] [place] [address] Daina Pichardo MD [address] [place] [address] Anxiety; Insomnia, unspecified type Social History Tobacco Use [...] Description 10/31/2024 9:15 AM EDT Office Visit [facility] MEDICINE [address] [place] [address] Daina Pichardo MD [address] [place] [address] 11/16/2024 9:00 AM EDT Clinical Support [facility] [address] [place] [address] Hanna Mark, RN [address] [place] [address] documented as of this encounter Visit Diagnoses Diagnosis Anxiety Anxiety state, unspecified Insomnia, unspecified type documented in this encounter Additional Health Concerns Assessment Noted Time PHQ-9 Depression Total Score: 3 02/16/20 10:56 AM EDT documented as of this encounter Care Teams Mobile Manager Relationship Specialty Start Date End Date Daina Pichardo MD [address] [place] [address] PCP - General Internal Medicine 12/16/22 documented as of this encounter
--- OUTSIDE RECORDS SUMMARY | 2024-10-16 00:24 | XMS_ITS | Encounter Summary ---
Author Organization [employer] Address [address] [place] [address] Care Team Providers Care Retail Sales Professional Name Role Phone Daina Pichardo MD Primary Care Pro vider Reason for Visit * Reason Onset Date Comments Med Refill 06/14/2023 Encounter Details Date Type Department Care Team (Late st Contact Info) Description 06/14/2023 Refill [facility] [address] [place] [address] Daina Pichardo MD [address] [place] [address] Social History Tobacco Use Types Packs/Day Years [...] Description 10/31/2024 9:15 AM EDT Office Visit [facility] MEDICINE [address] [place] [address] Daina Pichardo MD [address] [place] [address] 11/16/2024 9:00 AM EDT Clinical Support [facility] [address] [place] [address] Hanna Mark, RN [address] [place], [place] [phone] documented as of this encounter Visit Diagnoses Not on filedocumented in this encounter Additional Health Concerns Assessment Noted Time PHQ-9 Depression Total Score: 3 02/16/20 10:56 AM EDT documented as of this encounter Care Teams Retail Sales Professional Relationship Specialty Start Date End Date Daina Pichardo MD [address] [place] [address] PCP - General Internal Medicine 12/16/22 documented as of this encounter
--- OUTSIDE RECORDS SUMMARY | 2024-10-16 00:24 | XMS_ITS | Encounter Summary ---
Author Organization [employer] Address [address] [place] [address] Care Team Providers Care Cold Type Composing Machine Operator Name Role Phone Daina Pichardo MD Primary Care Pro vider Reason for Visit * Reason Onset Date Comments Med Refill 07/01/2023 Encounter Details Date Type Department Care Team ([facility] st Contact Info) Description 07/01/2023 Telephone [facility] MEDICINE [address] [place] [address] Daina Pichardo MD [address] [place] [address] Med Refill Social History Tobacco Use Types [...] * Telephone Encounter - Rosalind Alcocer - 07/01/2023 9:10 AM EST Tc from pt requesting med refill on; oxyCODONE (Roxicodone) 5 MG immediate release tablet documented in this encounter Plan of Treatment Upcoming Encounters Date Type Department Care Team (Late st Contact Info) Description 10/31/2024 9:15 AM EDT Office Visit [facility]INE [address] [place] [address] Daina Pichardo MD [address] [place] [address] 11/16/2024 9:00 AM EDT Clinical Support [facility] [address] [place] [address] Hanna Mark, JULIANN [address] [place] [address] documented as of this encounter Visit Diagnoses Not on filedocumented in this encounter Additional Health Concerns Assessment Noted Time PHQ-9 Depression Total Score: 3 02/16/20 10:56 AM EDT documented as of this encounter Care Teams Cold Type Composing Machine Operator Relationship Specialty Start Date End Date Daina Pichardo MD [address] [place] [address] PCP - General Internal Medicine 12/16/22 documented as of this encounter
[2024-10-16 00:25] LABS: Basophils Percent Auto 0.3 % (0-2); Eosinophils Absolute Auto 0.1 X10*3/uL (0.0-0.4); Eosinophils Percent Auto 1.5 % (0-4); Hematocrit 40.2 % (42.0-52.0); Hemoglobin 14.3 g/dl (14.0-18.0); Imm Gran Abs Auto 0.01 X10*3/uL (0.00-0.03); Imm Gran Pct Auto 0.2 % (0.0-0.4); Lymphocytes Absolute Auto 2.1 X10*3/uL (1.2-4.9); Lymphocytes Percent Auto 33.9 % (20-40); Mean Corpuscular HGB Conc 35.6 g/dl (31.0-36.0); Mean Corpuscular Hemoglobin 31.9 pg (27.0-33.0); Mean Corpuscular Volume 89.7 fL (80.0-98.0); Mean Platelet Volume 10.9 fL (9.4-12.4); Monocytes Absolute Auto 0.4 X10*3/uL (0.1-1.2); Monocytes Percent Auto 6.4 % (2-11); Neutrophils Absolute Auto 3.5 x10*3/uL (2.0-8.3); Neutrophils Percent Auto 57.7 % (45-73); Platelet Count 172 X10*3/uL (160-400); Red Blood Count 4.48 X10*6/uL (4.60-5.80); Red Cell Distribution Width 12.1 % (11.0-16.0); White Blood Count 6.1 X10*3/uL (4.8-10.8)
--- OUTSIDE RECORDS SUMMARY | 2024-10-16 00:25 | XMS_ITS | Encounter Summary ---
Author Organization [employer] Address [address] [place] [address] Care Team Providers Care Business Integration Manager Name Role Phone Daina Pichardo MD Primary Care Pro vider Reason for Visit * Reason Onset Date Comments Med Refill 02/08/2023 Encounter Details Date Type Department Care Team ([facility] st Contact Info) Description 02/08/2023 Telephone [facility] MEDICINE 230 [place] [address] Daina Pichardo MD 230 [place] [address] Med Refill Social History Tobacco Use Types [...] encounter Miscellaneous Notes * Telephone Encounter - Neville Watson - 02/08/2023 9:13 AM EDT TC from pt requesting med refill on oxyCODONE (Roxicodone) 5 MG immediate release tablet Please sent to [facility]/pharmacy #[id number] - [place], [place] - [address] documented in this encounter Plan of Treatment Upcoming Encounters Date Type Department Care Team (Late st Contact Info) Description 10/31/2024 9:15 AM EDT Office Visit [facility] MEDICINE [address] [place] [address] Daina Pichardo MD 230 [place] [address] 11/16/2024 9:00 AM EDT Clinical Support [facility] MED & PEDS 505 [place], [place] [phone] Hanna Mark, JULIANN 505 [place], [place] [phone] documented as of this encounter Visit Diagnoses Not on filedocumented in this encounter Additional Health Concerns Assessment Noted Time PHQ-9 Depression Total Score: 0 08/13/19 23 1:02 PM EST documented as of this encounter Care Teams Business Integration Manager Relationship Specialty Start Date End Date Daina Pichardo MD [address] [place] [address] PCP - General Internal Medicine 12/16/22 documented as of this encounter
--- OUTSIDE RECORDS SUMMARY | 2024-10-16 00:25 | XMS_ITS | Encounter Summary ---
Author Organization [employer] Address [address] [place] [address] Care Team Providers Care Swimming Pool Cleaner Name Role Phone Daina Pichardo MD Primary Care Pro vider Reason for Visit * Reason Onset Date Comments Med Refill 03/08/2024 Encounter Details Date Type Department Care Team ([facility] st Contact Info) Description 03/08/2024 Telephone [facility] MEDICINE 230 [place] [address] Daina Pichardo MD 230 [place] [address] Med Refill Social History Tobacco Use Types [...] encounter Miscellaneous Notes * Telephone Encounter - Waldo Ball - 03/08/2024 9:31 AM EDT TC from pt requesting medication refill. Medications needing refill: clonazePAM (KlonoPIN) 1 MG tablet zolpidem (Ambien) 10 MG tablet To be sent to: [facility]/pharmacy #[id number] documented in this encounter Plan of Treatment Upcoming Encounters Date Type Department Care Team (Late st Contact Info) Description 10/31/2024 9:15 AM EDT Office Visit [facility] MEDICINE [address] [place] [address] Daina Pichardo MD [address] [place] [address] 11/16/2024 9:00 AM EDT Clinical Support [facility] MED & PEDS 505 [place] [address] Hanna Mark RN 505 [place] [address] documented as of this encounter Visit Diagnoses Not on filedocumented in this encounter Additional Health Concerns Assessment Noted Time PHQ-9 Depression Total Score: 3 02/16/20 23 10:56 AM EDT documented as of this encounter Care Teams Swimming Pool Cleaner Relationship Specialty Start Date End Date Daina Pichardo MD [address] [place] [address] PCP - General Internal Medicine 12/16/22 documented as of this encounter
--- OUTSIDE RECORDS SUMMARY | 2024-10-16 00:25 | XMS_ITS | Encounter Summary ---
Author Organization [employer] Address [address] [place] [address] [place] [address] Care Team Providers Care Service Delivery Supervisor Name Role Phone Daina Pichardo MD Primary Care Pro vider Reason for Visit * Reason Comments Med Refill Encounter Details Date Type Department Care Team ([facility] Contact Info) Description 01/14/2023 Refill [facility] MEDICINE [address] [place] [address] [phone] Estephania Borrero FNP [address] [place] [address] Dept [place] [address] Insomnia, unspecified type Social History Tobacco Use [...] suspected to have Coronavirus/COVID-19? No / Unsure 12/16/2022 8:43 AM EDT documented as of this encounter Plan of Treatment Upcoming Encounters Date Type Department Care Team (Late Contact Info) Description 10/31/2024 9:15 AM EDT Office Visit [facility] MEDICINE [address] [place] [address] Daina Pichardo MD 230 [place] [address] 11/16/2024 9:00 AM EDT Clinical Support [facility] MED & PEDS 505 [place] [address] Hanna Mark, RN 505 [place] [address] documented as of this encounter Visit Diagnoses Diagnosis Insomnia, unspecified type documented in this encounter Additional Health Concerns Assessment Noted Time PHQ-9 Depression Total Score: 0 08/13/19 23 1:02 PM EST documented as of this encounter Care Teams Service Delivery Supervisor Relationship Specialty Start Date End Date Daina Pichardo MD 230 [place] [address] PCP - General Internal Medicine 12/16/22 documented as of this encounter
--- OUTSIDE RECORDS SUMMARY | 2024-10-16 00:25 | XMS_ITS | Encounter Summary ---
Author Organization [employer] Address [address] [place] [address] Care Team Providers Care Freight Flagman Name Role Phone Daina Pichardo MD Primary Care Pro vider Reason for Visit * Reason Onset Date Comments Med Refill 04/27/2024 Encounter Details Date Type Department Care Team (Late st Contact Info) Description 04/27/[address] [facility] MEDICINE 230 [place] [address] Daina Pichardo MD 230 [place] [address] Social History Tobacco Use Types Packs/Day Years [...] 9:15 AM EDT Office Visit [facility] MEDICINE [address] [place] [address] Daina Pichardo MD [address] [place] [address] 11/16/2024 9:00 AM EDT Clinical Support [facility] MED & PEDS 505 [place] [address] Hanna Mark, RN 505 [place], [place] [phone] documented as of this encounter Visit Diagnoses Not on filedocumented in this encounter Additional Health Concerns Assessment Noted Time PHQ-9 Depression Total Score: 3 02/16/20 10:56 AM EDT documented as of this encounter Care Teams Freight Flagman Relationship Specialty Start Date End Date Daina Pichardo MD [address] [place] [address] PCP - General Internal Medicine 12/16/22 documented as of this encounter
--- OUTSIDE RECORDS SUMMARY | 2024-10-16 00:25 | XMS_ITS | Encounter Summary ---
Author Organization [employer] Address [address] [place] [address] Care Team Providers Care Cap Sewer Name Role Phone Daina Pichardo MD Primary Care Pro vider Reason for Visit * Reason Onset Date Comments Med Refill 05/10/2024 Encounter Details Date Type Department Care Team ([facility] st Contact Info) Description 05/10/2024 Telephone [facility] MEDICINE 230 [place] [address] Daina Pichardo MD 230 [place] [address] Med Refill Social History Tobacco Use Types [...] encounter Miscellaneous Notes * Telephone Encounter - Dakota Webber - 05/10/2024 9:53 AM EDT TC from pt requesting medication refill. Medications needing refill : clonazePAM (KlonoPIN) 1 MG tablet To be sent to: [facility]/pharmacy #[id number] documented in this encounter Plan of Treatment Upcoming Encounters Date Type Department Care Team (Late st Contact Info) Description 10/31/2024 9:15 AM EDT Office Visit [facility] MEDICINE 230 [place] [address] Daina Pichardo MD [address] [place] [address] 11/16/2024 9:00 AM EDT Clinical Support [facility] CH[facility] MED & PEDS 505 [place] [address] Hanna Mark RN 505 [place] [address] documented as of this encounter Visit Diagnoses Not on filedocumented in this encounter Additional Health Concerns Assessment Noted Time PHQ-9 Depression Total Score: 3 02/16/20 23 10:56 AM EDT documented as of this encounter Care Teams Cap Sewer Relationship Specialty Start Date End Date Daina Pichardo MD [address] [place] [address] PCP - General Internal Medicine 12/16/22 documented as of this encounter
--- OUTSIDE RECORDS SUMMARY | 2024-10-16 00:25 | XMS_ITS | Encounter Summary ---
Author Organization [employer] Address [address] [place] [address] Care Team Providers Care Activity Therapy Teacher Name Role Phone Daina Pichardo MD Primary Care Pro vider Reason for Visit * Reason Onset Date Comments Med Refill 02/25/2024 Encounter Details Date Type Department Care Team (Late st Contact Info) Description 02/25/2024 Refill [facility] MEDICINE 230 [place] [address] Daina Pichardo MD 230 [place] [address] Social History Tobacco Use Types Packs/Day Years [...] EDT Office Visit [facility] MEDICINE [address] [place] [address] Daina Pichardo MD [address] [place] [address] 11/16/2024 9:00 AM EDT Clinical Support [facility] MED & PEDS 505 [place] [address] Hanna Mark, RN 505 [place], [place] [phone] documented as of this encounter Visit Diagnoses Not on filedocumented in this encounter Additional Health Concerns Assessment Noted Time PHQ-9 Depression Total Score: 3 02/16/20 10:56 AM EDT documented as of this encounter Care Teams Activity Therapy Teacher Relationship Specialty Start Date End Date Daina Pichardo MD [address] [place] [address] PCP - General Internal Medicine 12/16/22 documented as of this encounter
--- OUTSIDE RECORDS SUMMARY | 2024-10-16 00:25 | XMS_ITS | Encounter Summary ---
Author Organization [employer] Address [address] [place] [address] Care Team Providers Care Tracer Bullet Section Supervisor Name Role Phone Daina Pichardo MD Primary Care Pro vider Reason for Visit * Reason Onset Date Comments Med Refill 03/10/2024 Encounter Details Date Type Department Care Team ([facility] st Contact Info) Description 03/10/2024 Telephone [facility] MEDICINE 230 [place] [address] Daina Pichardo MD 230 [place] [address] Med Refill Social History Tobacco Use Types [...] * Telephone Encounter - Waldo Ball - 03/10/2024 9:07 AM EDT TC from pt requesting medication refill. Medications needing refill: oxyCODONE (Roxicodone) 5 MG immediate release tablet To be sent to: [facility]/pharmacy #[id number] documented in this encounter Plan of Treatment Upcoming Encounters Date Type Department Care Team (Late st Contact Info) Description 10/31/2024 9:15 AM EDT Office Visit [facility] MEDICINE [address] [place] [address] Daina Pichardo MD 230 [place] [address] 11/16/2024 9:00 AM EDT Clinical Support [facility] MED & PEDS 505 [place] [address] Hanna Mark, JULIANN 505 [place] [address] documented as of this encounter Visit Diagnoses Not on filedocumented in this encounter Additional Health Concerns Assessment Noted Time PHQ-9 Depression Total Score: 3 02/16/20 23 10:56 AM EDT documented as of this encounter Care Teams Tracer Bullet Section Supervisor Relationship Specialty Start Date End Date Daina Pichardo MD [address] [place] [address] PCP - General Internal Medicine 12/16/22 documented as of this encounter
--- OUTSIDE RECORDS SUMMARY | 2024-10-16 00:25 | XMS_ITS | Encounter Summary ---
Author Organization [employer] Address [address] [place] [address] Care Team Providers Care Dish Machine Operator Name Role Phone Daina Pichardo MD Primary Care Pro vider Reason for Visit * Reason Onset Date Comments Med Refill 05/01/2024 Encounter Details Date Type Department Care Team ([facility] st Contact Info) Description 05/01/[address] [facility] MEDICINE 230 [place] [address] Daina Pichardo MD 230 [place] [address] Med Refill Social History Tobacco Use Types [...] encounter Miscellaneous Notes * Telephone Encounter - Leon Sahu - 05/01/2024 9:58 AM EDT TC from pt requesting medication refill. Medications needing refill : oxyCODONE (Roxicodone) 5 MG immediate release tablet To be sent to: [facility]/pharmacy #[id number] documented in this encounter Plan of Treatment Upcoming Encounters Date Type Department Care Team (Late st Contact Info) Description 10/31/2024 9:15 AM EDT Office Visit [facility] MEDICINE 230 [place] [address] Daina Pichardo MD 230 [place] [address] 11/16/2024 9:00 AM EDT Clinical Support [facility] MED & PEDS 505 [place] [address] Hanna Mark, JULIANN 505 [place] [address] documented as of this encounter Visit Diagnoses Not on filedocumented in this encounter Additional Health Concerns Assessment Noted Time PHQ-9 Depression Total Score: 3 02/16/20 23 10:56 AM EDT documented as of this encounter Care Teams Dish Machine Operator Relationship Specialty Start Date End Date Daina Pichardo MD [address] [place] [address] PCP - General Internal Medicine 12/16/22 documented as of this encounter
--- OUTSIDE RECORDS SUMMARY | 2024-10-16 00:25 | XMS_ITS | Encounter Summary ---
Author Organization [employer] Address [address] [place] [address] Care Team Providers Care Knotting Machine Operator Portable Name Role Phone Daina Pichardo MD Primary Care Pro vider Reason for Visit * Reason Onset Date Comments Med Refill 01/19/2023 Encounter Details Date Type Department Care Team (Late st Contact Info) Description 01/19/2023 Refill [facility] MEDICINE [address] [place] [address] [phone] Daina Pichardo MD 230 [place], [place] [phone] Complications of intestinal pouch (CMS/HCC); Crohn's disease [...] Description 10/31/2024 9:15 AM EDT Office Visit [facility] MEDICINE [address] [place] [address] [phone] Daina Pichardo MD 230 [place], [place] [phone] 11/16/2024 9:00 AM EDT Clinical Support [facility] MED & PEDS 505 [place] [address] Hanna Mark, RN [address] [place] [address] documented as of this encounter Visit Diagnoses Diagnosis Complications of intestinal pouch (CMS/HCC) Crohn's disease of small intestine with complication (CMS/HCC) documented in this encounter Additional Health Concerns Assessment Noted Time PHQ-9 Depression Total Score: 0 08/13/19 23 1:02 PM EST documented as of this encounter Care Teams Knotting Machine Operator Portable Relationship Specialty Start Date End Date Daina Pichardo MD [address] [place] [address] PCP - General Internal Medicine 12/16/22 documented as of this encounter
--- OUTSIDE RECORDS SUMMARY | 2024-10-16 00:25 | XMS_ITS | Encounter Summary ---
Author Organization [employer] Address [address] [place] [address] Care Team Providers Care Content Curator Name Role Phone Daina Pichardo MD Primary Care Pro vider Reason for Visit * Reason Onset Date Comments Med Refill 02/07/2024 Encounter Details Date Type Department Care Team ([facility] st Contact Info) Description 02/07/2024 Telephone [facility] MEDICINE 230 [place] [address] Daina Pichardo MD 230 [place] [address] Med Refill Social History Tobacco Use Types [...] * Telephone Encounter - Rosalind Alcocer - 02/07/2024 9:12 AM EDT TC from pt requesting medication refill. Medications needing refill : clonazePAM (KlonoPIN) 1 MG tablet To be sent to: [facility]/pharmacy #[id number] - [address] documented in this encounter Plan of Treatment Upcoming Encounters Date Type Department Care Team (Late st Contact Info) Description 10/31/2024 9:15 AM EDT Office Visit [facility] MEDICINE 230 [place] [address] Daina Pichardo MD 230 [place] [address] 11/16/2024 9:00 AM EDT Clinical Support [facility] MED [facility] PEDS 505 [place] [address] Hanna Mark, JULIANN 505 [place] [address] documented as of this encounter Visit Diagnoses Not on filedocumented in this encounter Additional Health Concerns Assessment Noted Time PHQ-9 Depression Total Score: 3 02/16/20 23 10:56 AM EDT documented as of this encounter Care Teams Content Curator Relationship Specialty Start Date End Date Daina Pichardo MD [address] [place] [address] PCP - General Internal Medicine 12/16/22 documented as of this encounter
--- OUTSIDE RECORDS SUMMARY | 2024-10-16 00:25 | XMS_ITS | Encounter Summary ---
Author Organization [employer] Address [address] [place] [address] Care Team Providers Care Web Press Operator Helper Offset Name Role Phone Daina Pichardo MD Primary Care Pro vider Reason for Visit * Reason Onset Date Comments Med Refill 03/16/2023 Encounter Details Date Type Department Care Team (Late st Contact Info) Description 03/16/2023 Telephone [facility] MEDICINE 230 [place] [address] Daina Pichardo MD 230 [place] [address] Med Refill Social History Tobacco Use Types Packs/Day Years Used Date Smoking Tobacco: Never Smokeless Tobacco: Never Alcohol Use Standard Drinks/Week Comments Never 0 (1 standard drink = 0.6 oz pur e alcohol) Depression Answer Date Recorded Patient Health Questionnaire-9 Score 3 02/15/2023 Depression Answer Date Recorded Patient Health Questionnaire-2 Score 0 02/15/2023 Sex and Gender Information Value Date Recorded Sex Assigned at Male 05/11/2022 10:16 AM EDT Legal Sex Male 10:16 AM EDT Gender Identity Male 02/15/2023 11:13 AM EDT Sexual Orientation Straight 02/15/2023 11 :13 AM EDT documented as of this encounter Miscellaneous Notes * Telephone Encounter - Savanah Junior - 03/16/2023 10:15 AM EDT TC from pt requesting med refill for mediation oxyCODONE (Roxicodone) 5 MG immediate release tablet clonazePAM (KlonoPIN) 1 MG tablet documented in this encounter Plan of Treatment Upcoming Encounters Date Type Department Care Team (Late st Contact Info) Description 10/31/2024 9:15 AM EDT Office Visit [facility] MEDICINE 230 [place] [address] Daina Pichardo MD 230 [place] [address] 11/16/2024 9:00 AM EDT Clinical Support [facility] MED & PEDS 505 [place], [place] [phone] Hanna Mark, JULIANN 505 [place], [place] [phone] documented as of this encounter Visit Diagnoses Not on filedocumented in this encounter Additional Health Concerns Assessment Noted Time PHQ-9 Depression Total Score: 3 02/16/20 10:56 AM EDT documented as of this encounter Care Teams Web Press Operator Helper Offset Relationship Specialty Start Date End Date Daina Pichardo MD [address] [place] [address] PCP - General Internal Medicine 12/16/22 documented as of this encounter
--- OUTSIDE RECORDS SUMMARY | 2024-10-16 00:25 | XMS_ITS | Encounter Summary ---
Author Organization [employer] Address [address] [place] [address] Care Team Providers Care Senior Energy Analyst Name Role Phone Daina Pichardo MD Primary Care Pro vider Reason for Visit * Reason Onset Date Comments Med Refill 02/15/2023 Encounter Details Date Type Department Care Team (Late st Contact Info) Description 02/15/2023 Refill [facility] MEDICINE [address] [place] [address] Daina Pichardo MD 230 [place] [address] Insomnia, unspecified type; Anxiety; Complications of intestinal pouch (CMS/HCC); Crohn's disease [...] Description 10/31/2024 9:15 AM EDT Office Visit [facility] MEDICINE 230 [place] [address] Daina Pichardo MD 230 [place] [address] 11/16/2024 9:00 AM EDT Clinical Support [facility] MED & PEDS 505 [place] [address] Hanna Mark, RN 505 [place] [address] documented as of this encounter Visit Diagnoses Diagnosis Insomnia, unspecified type Anxiety Anxiety state, unspecified Complications of intestinal pouch (CMS/HCC) Crohn's disease of small intestine with complication (CMS/HCC) documented in this encounter Additional Health Concerns Assessment Noted Time PHQ-9 Depression Total Score: 3 02/16/20 10:56 AM EDT documented as of this encounter Care Teams Senior Energy Analyst Relationship Specialty Start Date End Date Daina Pichardo MD [address] [place] [address] PCP - General Internal Medicine 12/16/22 documented as of this encounter
--- OUTSIDE RECORDS SUMMARY | 2024-10-16 00:25 | XMS_ITS | Encounter Summary ---
Author Organization [employer] Address [address] [place] [address] Care Team Providers Care Security Guard Name Role Phone Daina Pichardo MD Primary Care Pro vider Reason for Visit * Reason Onset Date Comments Med Refill 04/05/2024 Encounter Details Date Type Department Care Team ([facility] st Contact Info) Description 04/05/2024 Telephone [facility] MEDICINE 230 [place] [address] Daina Pichardo MD 230 [place] [address] Med Refill Social History Tobacco Use Types [...] encounter Miscellaneous Notes * Telephone Encounter - Stephan Aguilera - 04/05/2024 11:07 AM EDT TC from pt states is aware script was sent but to start 04/06 . Pt states will be leaving to [facility] this evening and needs office to call pharmacy to dispense early . * Telephone Encounter - Savanah Junior - 04/05/2024 9:08 AM EDT TC from pt requesting medication refill. Medications needing refill : oxyCODONE (Roxicodone) 5 MG immediate release tablet To be sent to: [facility]/pharmacy #[id number] - [address] documented in this encounter Plan of Treatment Upcoming Encounters Date Type Department Care Team (Late st Contact Info) Description 10/31/2024 9:15 AM EDT Office Visit [facility] MEDICINE [address] [place] [address] Daina Pichardo MD 230 [place] [address] 11/16/2024 9:00 AM EDT Clinical Support [facility] MED [facility] PEDS 505 [place] [address] Hanna Mark, JULIANN 505 [place] [address] documented as of this encounter Visit Diagnoses Not on filedocumented in this encounter Additional Health Concerns Assessment Noted Time PHQ-9 Depression Total Score: 3 02/16/20 10:56 AM EDT documented as of this encounter Care Teams Security Guard Relationship Specialty Start Date End Date Daina Pichardo MD [address] [place] [address] PCP - General Internal Medicine 12/16/22 documented as of this encounter
--- OUTSIDE RECORDS SUMMARY | 2024-10-16 00:25 | XMS_ITS | Encounter Summary ---
Author Organization [employer] Address [address] [place] [address] Care Team Providers Care Oysterman Name Role Phone Daina Pichardo MD Primary Care Pro vider Reason for Visit * Reason Onset Date Comments Med Refill 01/07/2024 Encounter Details Date Type Department Care Team ([facility] st Contact Info) Description 01/07/2024 Telephone [facility] MEDICINE 230 [place] [address] Daina Pichardo MD 230 [place] [address] Med Refill Social History Tobacco Use Types [...] * Telephone Encounter - Rosalind Alcocer - 01/07/2024 10:22 AM EDT TC from pt requesting medication refill. Medications needing refill : clonazePAM (KlonoPIN) 1 MG tablet To be sent to: [facility]/pharmacy #[id number] - [address] documented in this encounter Plan of Treatment Upcoming Encounters Date Type Department Care Team (Late st Contact Info) Description 10/31/2024 9:15 AM EDT Office Visit [facility] MEDICINE 230 [place] [address] Daina Pichardo MD 230 [place] [address] 11/16/2024 9:00 AM EDT Clinical Support [facility] MED [facility] PEDS 505 [place] [address] Hanna Mark, JULIANN 505 [place] [address] documented as of this encounter Visit Diagnoses Not on filedocumented in this encounter Additional Health Concerns Assessment Noted Time PHQ-9 Depression Total Score: 3 02/16/20 23 10:56 AM EDT documented as of this encounter Care Teams Oysterman Relationship Specialty Start Date End Date Daina Pichardo MD [address] [place] [address] PCP - General Internal Medicine 12/16/22 documented as of this encounter
--- OUTSIDE RECORDS SUMMARY | 2024-10-16 00:25 | XMS_ITS | Encounter Summary ---
Author Organization [employer] Address [address] [place] [address] Care Team Providers Care Transmission Specialist Name Role Phone Daina Pichardo MD Primary Care Pro vider Reason for Visit * Reason Onset Date Comments Med Refill 05/10/2024 Encounter Details Date Type Department Care Team ([facility] st Contact Info) Description 05/10/2024 Telephone [facility] MEDICINE [address] [place] [address] Daina Pichardo MD 230 [place] [address] Med Refill Social History Tobacco Use Types [...] Telephone Encounter - Isabel Reyes LPN - 05/10/2024 10:35 AM EDT Medication pended to PCP for approval. * Telephone Encounter - Dakota Webber - 05/10/2024 9:57 AM EDT TC from pt requesting medication refill. Medications needing refill : zolpidem (Ambien) 10 MG tablet To be sent to: [id number] documented in this encounter Plan of Treatment Upcoming Encounters Date Type Department Care Team (Late st Contact Info) Description 10/31/2024 9:15 AM EDT Office Visit [facility] MEDICINE [address] [place] [address] Daina Pichardo MD 230 [place] [address] 11/16/2024 9:00 AM EDT Clinical Support [facility] MED & PEDS [address] [place], [place] [phone] Hanan Mark, JULIANN 505 [place], [place] [phone] documented as of this encounter Visit Diagnoses Not on filedocumented in this encounter Additional Health Concerns Assessment Noted Time PHQ-9 Depression Total Score: 3 02/16/20 10:56 AM EDT documented as of this encounter Care Teams Transmission Specialist Relationship Specialty Start Date End Date Daina Pichardo MD [address] [place] [address] PCP - General Internal Medicine 12/16/22 documented as of this encounter
--- OUTSIDE RECORDS SUMMARY | 2024-10-16 00:25 | XMS_ITS | Encounter Summary ---
Author Organization [employer] Address [address] [place] [address] Care Team Providers Care Business Control Specialist Name Role Phone Daina Pichardo MD Primary Care Pro vider Reason for Visit * Reason Onset Date Comments Med Refill 02/16/2024 Encounter Details Date Type Department Care Team ([facility] st Contact Info) Description 02/16/[address] [facility] MEDICINE 230 [place] [address] Daina Pichardo MD 230 [place] [address] Med Refill Social History Tobacco Use Types [...] * Telephone Encounter - Leon Sahu - 02/16/2024 9:03 AM EDT TC from pt requesting medication refill. Medications needing refill : oxyCODONE (Roxicodone) 5 MG immediate release tablet To be sent to: [facility]/pharmacy #[id number] documented in this encounter Plan of Treatment Upcoming Encounters Date Type Department Care Team (Late st Contact Info) Description 10/31/2024 9:15 AM EDT Office Visit [facility] MEDICINE 230 [place] [address] Daina Pichardo MD 230 [place] [address] 11/16/2024 9:00 AM EDT Clinical Support [facility] MED & PEDS 505 [place] [address] Hanna Mark, JULIANN 505 [place] [address] documented as of this encounter Visit Diagnoses Not on filedocumented in this encounter Additional Health Concerns Assessment Noted Time PHQ-9 Depression Total Score: 3 02/16/20 23 10:56 AM EDT documented as of this encounter Care Teams Business Control Specialist Relationship Specialty Start Date End Date Daina Pichardo MD [address] [place] [address] PCP - General Internal Medicine 12/16/22 documented as of this encounter
--- OUTSIDE RECORDS SUMMARY | 2024-10-16 00:25 | XMS_ITS | Encounter Summary ---
Author Organization [employer] Address [address] [place] [address] Care Team Providers Care Multiple Wire Sawyer Name Role Phone Daina Pichardo MD Primary Care Pro vider Reason for Visit * Reason Onset Date Comments Med Refill 04/14/2023 Encounter Details Date Type Department Care Team (Late st Contact Info) Description 04/14/2023 Refill [facility] MEDICINE 230 [place] [address] Estephania Borrero FNP [address] [place] [address] Dept [place] [address] Crohn's disease of small intestine with complication (CMS/HCC); Ileal pouchitis (CMS/HCC) Social History Tobacco Use Types Packs/Day [...] Office Visit [facility] MEDICINE 230 [place], [place] [phone] Daina Pichardo MD [address] [place] [address] 11/16/2024 9:00 AM EDT Clinical Support [facility] 505 [place] [address] Hanna Mark, JULIANN 505 [place], [place] [phone] documented as of this encounter Visit Diagnoses Diagnosis Crohn's disease of small intestine with complication (CMS/HCC) Ileal pouchitis (CMS/HCC) documented in this encounter Additional Health Concerns Assessment Noted Time PHQ-9 Depression Total Score: 3 02/16/20 10:56 AM EDT documented as of this encounter Care Teams Multiple Wire Sawyer Relationship Specialty Start Date End Date Daina Pichardo MD [address] [place], [place] [phone] PCP - General Internal Medicine 12/16/22 documented as of this encounter
--- OUTSIDE RECORDS SUMMARY | 2024-10-16 00:25 | XMS_ITS | Encounter Summary ---
Author Organization [employer] Address [address] [place] [address] Care Team Providers Care Fryer Line Helper Name Role Phone Daina Pichardo MD Primary Care Pro vider Reason for Visit * Reason Onset Date Comments Med Refill 04/07/2024 Encounter Details Date Type Department Care Team ([facility] st Contact Info) Description 04/07/2024 Telephone [facility] MEDICINE 230 [place] [address] Daina Pichardo MD 230 [place] [address] Med Refill Social History Tobacco Use Types [...] * Telephone Encounter - Waldo Ball - 04/07/2024 2:23 PM EDT TC from pt requesting medication refill. Medications needing refill: zolpidem (Ambien) 10 MG tablet To be sent to: [facility]/pharmacy #[id number] - [address] documented in this encounter Plan of Treatment Upcoming Encounters Date Type Department Care Team (Late st Contact Info) Description 10/31/2024 9:15 AM EDT Office Visit [facility] MEDICINE 230 [place] [address] Daina Pichardo MD 230 [place] [address] 11/16/2024 9:00 AM EDT Clinical Support [facility] MED & PEDS 505 [place] [address] Hanna Mark, JULIANN 505 [place] [address] documented as of this encounter Visit Diagnoses Not on filedocumented in this encounter Additional Health Concerns Assessment Noted Time PHQ-9 Depression Total Score: 3 02/16/20 23 10:56 AM EDT documented as of this encounter Care Teams Fryer Line Helper Relationship Specialty Start Date End Date Daina Pichardo MD [address] [place] [address] PCP - General Internal Medicine 12/16/22 documented as of this encounter
--- OUTSIDE RECORDS SUMMARY | 2024-10-16 00:25 | XMS_ITS | Encounter Summary ---
Author Organization [employer] Address [address] [place] [address] [place] [address] Care Team Providers Care Graduate Assistant Athletic Trainer Name Role Phone Daina Pichardo MD Primary Care Pro vider Reason for Visit * Reason Comments Med Refill Encounter Details Date Type Department Care Team (Late st Contact Info) Description 01/14/2023 Refill [facility] [address] [place] [address] Estephania Borrero FNP [address] [place] [address] Dept [place] [address] Insomnia, unspecified type; Anxiety Social History Tobacco [...] encounter Miscellaneous Notes * Telephone Encounter - Sofy Coombs RN - 01/14/2023 4:05 PM EDT Duplicate request. Sent to pcp earlier today documented in this encounter Plan of Treatment Upcoming Encounters Date Type Department Care Team (Late st Contact Info) Description 10/31/2024 9:15 AM EDT Office Visit [facility] 230 [place] [address] Daina Pichardo MD 230 [place] [address] 11/16/2024 9:00 AM EDT Clinical Support [facility] MED [facility] PEDS 505 [place] [address] Hanna Mark, JULIANN 505 [place] [address] documented as of this encounter Visit Diagnoses Diagnosis Insomnia, unspecified type Anxiety Anxiety state, unspecified documented in this encounter Additional Health Concerns Assessment Noted Time PHQ-9 Depression Total Score: 0 08/13/19 1:02 PM EST documented as of this encounter Care Teams Graduate Assistant Athletic Trainer Relationship Specialty Start Date End Date Daina Pichardo MD 230 [place] [address] PCP - General Internal Medicine 12/16/22 documented as of this encounter
--- OUTSIDE RECORDS SUMMARY | 2024-10-16 00:25 | XMS_ITS | Encounter Summary ---
Author Organization [employer] Address [address] [place] [address] Care Team Providers Care Porter Head Name Role Phone Daina Pichardo MD Primary Care Pro vider Reason for Visit * Reason Onset Date Comments Med Refill 04/14/2023 Encounter Details Date Type Department Care Team (Late st Contact Info) Description 04/14/2023 Refill [facility] MEDICINE [address] [place] [address] [phone] Daina Pichardo MD 230 [place], [place] [phone] Insomnia, unspecified type Social History Tobacco Use [...] Description 10/31/2024 9:15 AM EDT Office Visit [facility] MEDICINE [address] [place] [address] [phone] Daina Pichardo MD 230 [place] [address] 11/16/2024 9:00 AM EDT Clinical Support [facility] MED & PEDS [address] [place], [place] [phone] Hanna Mark, RN 505 [place], [place] [phone] documented as of this encounter Visit Diagnoses Diagnosis Insomnia, unspecified type documented in this encounter Additional Health Concerns Assessment Noted Time PHQ-9 Depression Total Score: 3 02/16/20 10:56 AM EDT documented as of this encounter Care Teams Porter Head Relationship Specialty Start Date End Date Daina Pichardo MD 230 [place] [address] PCP - General Internal Medicine 12/16/22 documented as of this encounter
--- OUTSIDE RECORDS SUMMARY | 2024-10-16 00:25 | XMS_ITS | Encounter Summary ---
Author Organization [employer] Address [address] [place] [address] Care Team Providers Care Biomechanical Engineer Name Role Phone Daina Pichardo MD Primary Care Pro vider Reason for Visit * Reason Onset Date Comments Med Refill 02/22/2024 Encounter Details Date Type Department Care Team (Late st Contact Info) Description 02/22/2024 Refill [facility] MEDICINE 230 [place] [address] Daina Pichardo MD 230 [place] [address] Social History Tobacco Use Types Packs/Day Years [...] 9:15 AM EDT Office Visit [facility] MEDICINE [address] [place] [address] Daina Pichardo MD [address] [place] [address] 11/16/2024 9:00 AM EDT Clinical Support [facility] MED [facility]S 505 [place] [address] Hanna Makr, RN 505 [place], [place] [phone] documented as of this encounter Visit Diagnoses Not on filedocumented in this encounter Additional Health Concerns Assessment Noted Time PHQ-9 Depression Total Score: 3 02/16/20 10:56 AM EDT documented as of this encounter Care Teams Biomechanical Engineer Relationship Specialty Start Date End Date Daina Pichardo MD [address] [place] [address] PCP - General Internal Medicine 12/16/22 documented as of this encounter
--- OUTSIDE RECORDS SUMMARY | 2024-10-16 00:25 | XMS_ITS | Encounter Summary ---
Author Organization [employer] Address [address] [place] [address] Care Team Providers Care Fiscal Manager Name Role Phone Daina Pichardo MD Primary Care Pro vider Reason for Visit * Reason Comments Med Change Request Encounter Details Date Type Department Care Team (Late st Contact Info) Description 02/15/2023 Refill [facility] MEDICINE 230 [place], [place] [phone] Daina Pichardo MD 230 [place] [address] Social History Tobacco Use Types Packs/Day Years [...] Telephone Encounter - Daina Quinn MD - 02/16/2023 6:16 PM EDT No need to give another drops pt was already prescribed ATB drops by her fire protection equipment technician thanks documented in this encounter Plan of Treatment Upcoming Encounters Date Type Department Care Team (Late st Contact Info) Description 10/31/2024 9:15 AM EDT Office Visit [facility] MEDICINE 230 [place] [address] Daina Pichardo MD [address] [place] [address] 11/16/2024 9:00 AM EDT Clinical Support [facility] MED & PEDS 505 [place], [place] [phone] Hanna Mark, JULIANN 505 [place], [place] [phone] documented as of this encounter Visit Diagnoses Not on filedocumented in this encounter Additional Health Concerns Assessment Noted Time PHQ-9 Depression Total Score: 3 02/16/20 10:56 AM EDT documented as of this encounter Care Teams Fiscal Manager Relationship Specialty Start Date End Date Daina Pichardo MD [address] [place] [address] PCP - General Internal Medicine 12/16/22 documented as of this encounter
--- OUTSIDE RECORDS SUMMARY | 2024-10-16 00:25 | XMS_ITS | Encounter Summary ---
Author Organization [employer] Address [address] [place] [address] Care Team Providers Care District Director Name Role Phone Daina Pichardo MD Primary Care Pro vider Reason for Visit * Reason Onset Date Comments Med Refill 02/08/2023 Encounter Details Date Type Department Care Team (Late st Contact Info) Description 02/08/2023 Refill [facility] MEDICINE [address] [place] [address] [phone] Daina Pichardo MD 230 [place], [place] [phone] Complications of intestinal pouch (CMS/HCC); Crohn's disease [...] Description 10/31/2024 9:15 AM EDT Office Visit [facility] MEDICINE [address] [place] [address] [phone] Daina Pichardo MD 230 [place], [place] [phone] 11/16/2024 9:00 AM EDT Clinical Support [facility] MED [facility] PEDS 505 [place] [address] Hanna Mark, RN [address] [place] [address] documented as of this encounter Visit Diagnoses Diagnosis Complications of intestinal pouch (CMS/HCC) Crohn's disease of small intestine with complication (CMS/HCC) documented in this encounter Additional Health Concerns Assessment Noted Time PHQ-9 Depression Total Score: 0 08/13/19 23 1:02 PM EST documented as of this encounter Care Teams District Director Relationship Specialty Start Date End Date Daina Pichardo MD [address] [place] [address] PCP - General Internal Medicine 12/16/22 documented as of this encounter
--- OUTSIDE RECORDS SUMMARY | 2024-10-16 00:25 | XMS_ITS | Encounter Summary ---
Author Organization [employer] Address [address] [place] [address] Care Team Providers Care Live Ammunition Inspector Name Role Phone Daina Pichardo MD Primary Care Pro vider Reason for Visit * Reason Onset Date Comments Med Refill 04/15/2023 Encounter Details Date Type Department Care Team ([facility] st Contact Info) Description 04/15/2023 Telephone [facility] MEDICINE 230 [place] [address] Daina Pichardo MD 230 [place] [address] Med Refill Social History Tobacco Use Types Packs/Day Years Used Date Smoking Tobacco: Never Smokeless Tobacco: Never Alcohol Use Standard Drinks/Week Comments Never 0 (1 standard drink = 0.6 oz pur e alcohol) Depression Answer Date Recorded Patient Health Questionnaire-9 Score 3 02/15/2023 Housing Stability Answer Date Recorded What is your housing situation today? I have balwinder levy 04/19/[address] you li ve. Do you have problems with any of the following? None of the above 04/19/2023 Food Insecurity Answer Date Recorded Within the past 12 months, y ou worried that your food would run out before you got money to buy more: Never True 04/19/2023 Within the past 12 months,th e food you bought just didn't last and you didn't have enough money to get more: Never True 03/2023 Transportation Answer Date Recorded In the past 12 months, has l ack of transportation kept you from medical appts, meetings, work or from getting things needed for daily living? No 04/19/2023 Utilities Answer Date Recorded In the past 12 months, has t he electric, gas, oil or water company threatened to shut off services in your home? No 04/19/2023 Depression Answer Date Recorded Patient Health Questionnaire-2 Score 0 02/15/2023 Sex and Gender Information Value Date Recorded Sex Assigned at Male 05/11/2022 10:16 AM EDT Legal Sex Male 10:16 AM EDT Gender Identity Male 02/15/2023 11:13 AM EDT Sexual Orientation Straight 02/15/2023 11 :13 AM EDT documented as of this encounter Miscellaneous Notes * Telephone Encounter - Belle Santiago - 04/15/2023 10:25 AM EDT Tc from patient requesting a med refill for medication Clonazepam 1mg and oxycodone 5mg. PCP Dr. Rogers * Telephone Encounter - Belle Santiago - 04/15/2023 10:21 AM EDT Tc from patient requesting a med refill for medication Ambian 10mg. PCP Dr. Rogers documented in this encounter Plan of Treatment Upcoming Encounters Date Type Department Care Team (Late st Contact Info) Description 10/31/2024 9:15 AM EDT Office Visit [facility] MEDICINE [address] [place] [address] Daina Pichardo MD 230 [place] [address] 11/16/2024 9:00 AM EDT Clinical Support [facility] MED [facility] PEDS 505 [place] [address] Hanna Mark, JULIANN 505 [place] [address] documented as of this encounter Visit Diagnoses Not on filedocumented in this encounter Additional Health Concerns Assessment Noted Time PHQ-9 Depression Total Score: 3 02/16/20 10:56 AM EDT documented as of this encounter Care Teams Live Ammunition Inspector Relationship Specialty Start Date End Date Daina Pichardo MD [address] [place] [address] PCP - General Internal Medicine 12/16/22 documented as of this encounter
--- OUTSIDE RECORDS SUMMARY | 2024-10-16 00:25 | XMS_ITS | Encounter Summary ---
Author Organization [employer] Address [address] [place] [address] Care Team Providers Care Implementation Coordinator Name Role Phone Daina Pichardo MD Primary Care Pro vider Reason for Visit * Reason Onset Date Comments Med Refill 02/25/2024 Encounter Details Date Type Department Care Team (Late st Contact Info) Description 02/25/2024 Refill [facility] MEDICINE 230 [place] [address] Daina Pichardo MD 230 [place] [address] Social History Tobacco Use Types Packs/Day Years [...] Description 10/31/2024 9:15 AM EDT Office Visit [facility] MEDICINE [address] [place] [address] Daina Pichardo MD [address] [place] [address] 11/16/2024 9:00 AM EDT Clinical Support [facility] MED & PEDS 505 [place] [address] Hanna aMrk, RN 505 [place], [place] [phone] documented as of this encounter Visit Diagnoses Not on filedocumented in this encounter Additional Health Concerns Assessment Noted Time PHQ-9 Depression Total Score: 3 02/16/20 10:56 AM EDT documented as of this encounter Care Teams Implementation Coordinator Relationship Specialty Start Date End Date Daina Pichardo MD [address] [place] [address] PCP - General Internal Medicine 12/16/22 documented as of this encounter
--- OUTSIDE RECORDS SUMMARY | 2024-10-16 00:25 | XMS_ITS | Encounter Summary ---
Author Organization [employer] Address [address] [place] [address] Care Team Providers Care Associate Broker Name Role Phone Daina Pichardo MD Primary Care Pro vider Reason for Visit * Reason Onset Date Comments Med Refill 04/07/2024 Encounter Details Date Type Department Care Team ([facility] st Contact Info) Description 04/07/2024 Telephone [facility] MEDICINE 230 [place] [address] Daina Pichardo MD 230 [place] [address] Med Refill Social History Tobacco Use Types [...] Telephone Encounter - Waldo Ball - 04/07/2024 2:24 PM EDT TC from pt requesting medication refill. Medications needing refill: clonazePAM (KlonoPIN) 1 MG tablet To be sent to: [facility]/pharmacy #[id number] - [address] documented in this encounter Plan of Treatment Upcoming Encounters Date Type Department Care Team (Late st Contact Info) Description 10/31/2024 9:15 AM EDT Office Visit [facility] MEDICINE [address] [place] [address] Daina Pichardo MD 230 [place] [address] 11/16/2024 9:00 AM EDT Clinical Support [facility] MED & PEDS 505 [place] [address] Hanna Mark, JULIANN 505 [place] [address] documented as of this encounter Visit Diagnoses Not on filedocumented in this encounter Additional Health Concerns Assessment Noted Time PHQ-9 Depression Total Score: 3 02/16/20 23 10:56 AM EDT documented as of this encounter Care Teams Associate Broker Relationship Specialty Start Date End Date Daina Pichardo MD [address] [place] [address] PCP - General Internal Medicine 12/16/22 documented as of this encounter
[2024-10-16 00:35] LABS: Alanine Aminotransferase 33 U/L (0-40); Albumin Level 4.1 g/dL (3.5-5.0); Alkaline Phosphatase 69 U/L (39-117); Anion Gap 13 (12-20); Aspartate Amino Transferase 34 U/L (5-37); Bilirubin Total 0.8 mg/dL (0.0-1.0); Blood Urea Nitrogen 10 mg/dL (9-16); Calcium 9.2 mg/dL (8.4-10.2); Carbon Dioxide 26 mmol/L (22-29); Chloride 106 mmol/L (96-108); Creatinine Clr Calc Pharmacy 117.6; Estimated Glomerular Filt Rate > 60; Glucose Random 87 mg/dL (60-115); Lipase 27 U/L (8-78); Potassium 4.2 mmol/L (3.3-5.1); Sodium 141 mmol/L (135-145); Total Protein 7.5 g/dL (6.5-8.0)
[2024-10-16 00:36] LABS: Appearance Urine Clear; Color Urine Yellow; Glucose Urine UA Negative (Negative); PH 6.5 (5.0-9.0)
[2024-10-16 00:37] LABS: Leukocyte Esterase Urine Negative (Negative); Nitrite Urine Negative (Negative); Specific Gravity - Urine 1.015 (1.005-1.025); Urine Blood Negative (Negative); Urine Ketones Negative (Negative); Urine Protein Negative (Neg-Trace)
--- NOTE | 2024-10-16 01:20 | ED_ITS ---
HPI - Abdominal Pain General Chief Complaint: Abdominal Pain Stated Complaint: abdominal pain Time Seen by Provider: 10/16/24 01:06 Source: patient Mode of arrival: ambulatory Limitations: no limitations History of Present Illness ED Provider: Dr. Samara Stark HPI narrative: Patient comes to the emergency room complaining of diffuse abdominal pain and bilateral flank pain. Patient believes that he is having a Crohn's flare up for passing kidney stones. Patient states that he intermittently sees blood in the toilet paper when he wipes after a bowel movement, this is something usual for the pain due to his Crohn's. Patient states that he can not tolerate any fluids p.o., he vomits immediately, denies diarrhea Related Data Home Medications ?Medication ?Instructions ?Recorded ?Confirmed adalimumab 40 mg/0.4 mL 40 mg subcut TH@0900 08/19/21 06/19/24 subcutaneous pen kit (Humira(CF) Pen) clonazepam 1 mg tablet 1 tab PO BID PRN Anxiety 08/19/21 06/19/24 loratadine 10 mg tablet 1 tab PO DAILY PRN Allergy Symptoms 08/19/21 06/19/24 omeprazole 20 mg capsule,delayed 20 mg PO DAILY@0630 08/19/21 06/19/24 release zolpidem 10 mg tablet 1 tab PO BEDTIME 08/19/21 06/19/24 multivitamin with folic acid 400 1 tab PO DAILY 06/11/22 06/19/24 mcg tablet (Daily-Davis (with folic acid)) cyanocobalamin (vitamin B-12) 1,000 mcg IM QMONTH 06/19/24 06/19/24 1,000 mcg/mL injection solution ferrous gluconate 324 mg (38 mg 324 mg PO MOWEFR 06/19/24 06/19/24 iron) tablet Previous Rx's ?Medication ?Instructions ?Recorded methylnaltrexone 150 mg tablet 450 mg (3 x 150 mg) PO DAILY #20 10/16/24 (Relistor) tabs polyethylene glycol 3350 17 17 g PO BID PRN laxative effect 10/16/24 gram/dose oral powder (Miralax) #510 grams sodium phosphates 19 gram-7 197 ml CO DAILY 31 days #133 mL 10/16/24 gram/118 mL enema (Fleet Enema) Allergies Allergy/AdvReac Type Severity Reaction Status Date / Time ondansetron [Ondansetron] Allergy Mild HIVES Verified 10/15/24 23:47 Sulfa (Sulfonamide Allergy Mild UNKNOWN Verified 10/15/24 23:47 Antibiotics) ketorolac Allergy Unknown Unknown Verified 10/15/24 23:47 meperidine [Demerol] Allergy Unknown Unknown Verified 10/15/24 23:47 metoclopramide [Reglan] Allergy Unknown Unknown Verified 10/15/24 23:47 morphine [Morphine] Allergy Unknown RASH Verified 10/15/24 23:47 haloperidol [From Haldol] Allergy Anaphylaxis Verified 10/15/24 23:47 ketamine Allergy Unknown Verified 10/15/24 23:47 From REGLAN Allergy Mild PT UNSURE Uncoded 10/15/24 23:47 BUT STATES HE IS ALLERGIC Compro Allergy Unknown Unknown Uncoded 10/15/24 23:47 From COMPAZINE Allergy Unknown ITCHING Uncoded 08/21/24 08:50 From Demerol Allergy Unknown ITCHY HIVES Uncoded 08/21/24 08:50 From Toradol Allergy Unknown UNK Uncoded 08/21/24 08:50 Review of Systems Review of Systems Constitutional : No Weight loss, No Fever, No Chills, No Night Sweats, No Fatigue, No Malaise ENT/Mouth : No Hearing loss, No Ear Pain, No Nasal Congestion, No Sinus Pain, No Hoarseness, No sore throat, No Rhinorrhea, No Swallowing Difficulty Eyes: No Eye Pain, No Swelling, No Redness, No Foreign Body, No Discharge, No Vision Changes Cardiovascular : No Chest Pain, No SOB, No Dyspnea on Exertion, No Orthopnea, No Edema, No Palpitations Respiratory : No Cough, No Sputum, No Wheezing, No Smoke Exposure, No Dyspnea Gastrointestinal : Complaining of nausea vomiting, no diarrhea, denies constipation, complaining of diffuse abdominal pain and blood in the stool Genitourinary : no irregular bleeding, No Dysuria, No Urinary Frequency, No Hematuria, No Urinary Incontinence, No Urgency, No Flank Pain, No Urinary Flow Changes, No Hesitancy Musculoskeletal : No joint pain, No Myalgias, No Joint Swelling Skin : No Skin Lesions, No rash Neuro : No Weakness, No Numbness, No Paresthesias, No Loss of Consciousness, No Dizziness, No Headache Psych : No Anxiety/Panic, No Depression, No SI/HI/AH/VH, No Social Issues, Heme/Lymph: No Bruising, No Bleeding,No Lymphadenopathy Endocrine : No Polyuria, No Polydipsia, No Temperature Intolerance [facility] Past Medical History Medical History Cervicalgia Migraine Anxiety Crohn's disease IBD (inflammatory bowel disease) Partial small bowel obstruction Surgical History History of colostomy reversal S/P colostomy History of surgery on arm Hx of colonoscopy History of esophagogastroduodenoscopy (EGD) Family History Family History Mother HTN (hypertension) Social History Social History Household Members: Spouse Housing: House Do you presently have visiting nurse or other home services: No Alcohol intake: never Patient Tobacco Use Status: Never used Tobacco Smoked in Last 30 Days: No Use of substances other than those prescribed or required for medical reasons: No Advance Directives: No Advance Directives Information Provided: Yes Do you have a plan to hurt others: No Plan service: No Current occupational status: disabled Physical Exam ED Vital Signs: Vital Signs - 24 hr 10/15/24 23:41 10/16/24 01:28 10/16/24 03:20 Temperature 98.3 F Pulse Rate 83 69 78 Respiratory Rate 18 20 18 Blood Pressure 114/75 103/67 104/74 Pulse Oximetry 98 97 95 Oxygen Delivery Method Room Air Room Air Room Air BMI result Body Mass Index 25.1 Const Other: Appearance: Alert. Oriented X3. Patient looks uncomfortable Eyes: Pupils equal, round and reactive to light. ENT: Pharynx normal. Neck: Normal inspection. Neck supple. No lymph nodes noted. No crepitus CVS: Normal heart rate and rhythm. Pulses normal. Normal S1 and S2 Respiratory: No respiratory distress. Breath sounds normal. No Wheezing. No rales Abdomen: Soft diffusely distended, tender to palpation Skin: Skin warm and dry. Normal skin color. Normal skin turgor. Extremities: No lower extremity edema. No Lacerations. No Rash Neuro: Oriented X 3. No motor deficit. No sensory deficit. Moving all extremities. No slurred speech. CN 2 through 12 grossly intact Psych: calm, cooperative, normal affect Course Course Course Narrative: Patient receiving IV fluids, hydromorphone, Solu-Medrol and Compazine IV All of patient's labs spent CT scans pending Medical Decision Making Medical Decision Making [facility] Narrative: My interpretation of labs: Hematology and chemistry at baseline, chemistry within normal limit, normal LFTs, normal lipase CT scan shows a significant amount of stool in the large intestine, they also mention an abrupt change in caliber at the sigmoid, possible stenosis of the anastomosis considered Overall patient feeling more comfortable than when patient arrived to the emergency room I discussed the patient with Dr. Burnette from surgery. Recommendations: Discharge patient with a good bowel regimen and have close follow-up with Gastroenterology soon for possible colonoscopy. Lab Data [facility] Lab Attestation statement: I reviewed the patient's lab results. 10/16/24 00:10 10/16/24 00:10 Labs: Lab Results 10/16/24 10/16/24 Range/Units 00:10 00:27 WBC 6.1 (4.8-10.8) X10*3/uL RBC 4.48 L (4.60-5.80) X10*6/uL Hgb 14.3 (14.0-18.0) g/dl Hct 40.2 L (42.0-52.0) % MCV 89.7 (80.0-98.0) fL MCH 31.9 (27.0-33.0) pg MCHC 35.6 (31.0-36.0) g/dl RDW 12.1 (11.0-16.0) % Plt Count 172 (160-400) X10*3/uL MPV 10.9 (9.4-12.4) fL Immature Gran % (Auto) 0.2 (0.0-0.4) % Neut % (Auto) 57.7 (45-73) % Lymph % (Auto) 33.9 (20-40) % [place] % (Auto) 6.4 (2-11) % Eos % (Auto) 1.5 (0-4) % Baso % (Auto) 0.3 (0-2) % Lymph # (Auto) 2.1 (1.2-4.9) X10*3/uL [place] # (Auto) 0.4 (0.1-1.2) X10*3/uL Eos # (Auto) 0.1 (0.0-0.4) X10*3/uL Baso # (Auto) 0.0 (0.0-0.2) X10*3/uL Abs Immat Gran (auto) 0.01 (0.00-0.03) X10*3/uL Absolute Neuts (auto) 3.5 (2.0-8.3) x10*3/uL Absolute Nucleated RBC 0.000 (0.0-0.012) X10*3/uL Nucleated RBC % (auto) 0.0 (0.0-0.2) /100WBC Sodium 141 (135-145) mmol/L Potassium 4.2 (3.3-5.1) mmol/L Chloride 106 (96-108) mmol/L Carbon Dioxide 26 (22-29) mmol/L Anion Gap 13 (12-20) BUN 10 (9-16) mg/dL Creatinine 0.69 (0.5-1.4) mg/dL Estim Creat Clear Calc 117.6 Estimated GFR > 60 Random Glucose 87 (60-115) mg/dL Calcium 9.2 (8.4-10.2) mg/dL Total Bilirubin 0.8 (0.0-1.0) mg/dL AST 34 (5-37) U/L ALT 33 (0-40) U/L Alkaline Phosphatase 69 (39-117) U/L Total Protein 7.5 (6.5-8.0) g/dL Albumin 4.1 (3.5-5.0) g/dL Lipase 27 (8-78) U/L Urine Color Yellow Urine Appearance Clear Urine pH 6.5 (5.0-9.0) Ur Specific [place] 1.015 (1.005-1.025) Urine Protein Negative (Neg-Trace) mg/dL Urine Glucose (UA) Negative (Negative) mg/dL Urine Ketones Negative (Negative) mg/dL Urine Blood Negative (Negative) Urine Nitrite Negative (Negative) Ur Leukocyte Esterase Negative (Negative) Independent Interpretation I performed an independent interpretation of an: CT Scan Radiology Impression Discussion of test interpretation with radiology: I have reviewed the radiologist's reading. Radiologist Impression: Findings: Mild bibasilar atelectasis and scarring. Mild fat deposition of the liver. Mild volume loss of the pancreas. The adrenal glands are normal. The spleen is nonenlarged. Nephrolithiasis are redemonstrated in the right kidney with mild increase in size and number. No hydronephrosis. The gallbladder is surgically absent. Small mesenteric lymph nodes are redemonstrated with mild fly mesentery. No definite new or enlarged lymphadenopathy. No small bowel obstruction. Postprocedural changes from partial large intestine resection redemonstrated. Portions of the large intestine persists with moderate to severe stool burden. Abrupt change in caliber of the lower distal sigmoid and nonspecific. No free intraperitoneal air. The appendix is not definitively seen. Prostate gland measures 4.5 cm transverse. Mild wall thickening of the urinary bladder is nonspecific. Multilevel Schmorl's nodes are redemonstrated. Degenerative changes include mild osteoarthritis of the hips. In the lumbar facet arthropathy. IMPRESSION: 1. Severe stool burden in the remaining parts of the large intestine, with abrupt change in caliber of the lower distal sigmoid near anastomosis. Stenosis anastomosis is considered. 2. No small bowel obstruction. Medications Administered Discontinued Medications Generic Name Dose Route Start Last Admin Trade Name Freq PRN Reason Stop Dose Admin Diphenhydramine HCl 50 mg 10/16/24 01:32 10/16/24 01:40 Diphenhydramine Hcl 50 Mg/Ml Vial IVPUSH 10/16/24 01:33 50 mg ONCE ONE Administration Hydromorphone HCl 1 mg 10/16/24 01:16 10/16/24 01:41 Hydromorphone Hcl 1 Mg/Ml Syringe IVPUSH 10/16/24 01:17 1 mg ONCE ONE Administration Protocol Sodium Chloride 1,000 mls @ 999 mls/hr 10/16/24 01:16 10/16/24 03:21 Ns IVCONT 10/16/24 02:16 Infused .Q1H1M ONE Infusion Iohexol 85 ml 10/16/24 01:59 10/16/24 02:01 Iohexol 350 Mg/Ml 100 Ml Infus..Btl IV 10/16/24 02:00 85 ml ONCE ONE Administration Lorazepam 1 mg 10/16/24 01:32 10/16/24 01:40 Lorazepam 2 Mg/Ml Vial IVPUSH 10/16/24 01:33 1 mg ONCE ONE Administration Methylprednisolone Sodium Succinate 125 mg 10/16/24 01:22 10/16/24 01:39 Methylprednisolone Sod Succ 125 Mg/2 Ml Vial IVPUSH 10/16/24 01:23 125 mg ONCE ONE Administration Prochlorperazine Edisylate 10 mg 10/16/24 01:16 10/16/24 01:41 Prochlorperazine Edisylate 10 Mg/2 Ml Vial IVPUSH 10/16/24 01:17 10 mg ONCE ONE Administration Critical Care Time Critical Care Time Critical Care Time: Yes Total Critical Care Time: 60 Attestation: I have personally provided critical care time. Time includes review of lab data, radiology results, discussion with consultants, and monitoring for potential decompensation. Intervention performed as documented. Discharge Plan Discharge Clinical Impression: Constipation, Abdominal pain Patient Disposition: Home, Self-Care Instructions: Constipation (DC), High Fiber Diet (ED), Abdominal Pain (ED), Fleet Enema (ED) Additional Instructions: You have a large amount of stool in urine testing. There might be a small stricture that may be preventing the stool from moving through the intestine as it should. Please call your can sorter, you may need a colonoscopy. I sent a medication called Relistor to your pharmacy. There is a possibility that they might not be able to give it to use since it requires prior authorization. Prescriptions: New polyethylene glycol 3350 [Miralax] 17 gram/dose powder 17 g PO BID PRN (Reason: laxative effect) Qty: 510 0RF Relistor 150 mg tablet 450 mg PO DAILY Qty: 20 0RF Fleet Enema 19-7 gram/118 mL enema 197 ml CO DAILY 31 Days Qty: 133 2RF No Action clonazepam 1 mg tablet 1 tab PO BID PRN (Reason: Anxiety) omeprazole 20 mg capsule,delayed release(DR/EC) 20 mg PO DAILY@0630 zolpidem 10 mg tablet 1 tab PO BEDTIME loratadine 10 mg tablet 1 tab PO DAILY PRN (Reason: Allergy Symptoms) Humira(CF) Pen 40 mg/0.4 mL pen injector kit 40 mg subcut TH@0900 multivitamin with folic acid [Daily-Davis (with folic acid)] 400 mcg tablet 1 tab PO DAILY cyanocobalamin (vitamin B-12) 1,000 mcg/mL solution 1,000 mcg IM QMONTH ferrous gluconate 324 mg (38 mg iron) tablet 324 mg PO MOWEFR Referrals: Kyle Espinosa MD [Physician] - 2 days Print Language: Filipino
[2024-10-16] MEDS: 0.9 % Sodium Chloride 1,000 ML 999 ML IVCONT (01:26)
[2024-10-16 01:28] VITALS: BP 103/67; PULSE 69; RESP 20; O2SAT 97
[2024-10-16] MEDS: methylPREDNISolone Sod Succ 125 MG/2 ML VIAL IVPUSH (01:39)
[2024-10-16] MEDS: LORazepam 2 MG/ML VIAL 1 MG IVPUSH (01:40)
[2024-10-16] MEDS: diphenhydrAMINE HCL 50 MG/ML VIAL IVPUSH (01:40)
[2024-10-16] MEDS: HYDROmorphone HCl 1 MG/ML SYRINGE IVPUSH (01:41)
[2024-10-16] MEDS: Prochlorperazine Edisylate 10 MG/2 ML VIAL IVPUSH (01:41)
[2024-10-16] MEDS: iohexoL 350 MG/ML 100 ML INFUS..BTL 85 ML IV (02:01)
[2024-10-16 03:20] VITALS: BP 104/74; PULSE 78; RESP 18; O2SAT 95
[2024-10-16 06:11] VITALS: BP 111/65; PULSE 75; RESP 14; TEMP 36.8; O2SAT 98
[2024-10-16 06:20] VITALS: BP 111/65; PULSE 75; RESP 14; TEMP 36.8; O2SAT 98
== END 2024-10-16 06:33 | disposition home or self-care (01) ==
PROVIDERS: Emergency Provider Emergency Medicine
DX: K59.00 Constipation, unspecified (principal); R10.2 Pelvic and perineal pain; R11.0 Nausea; Z79.899 Other long term (current) drug therapy
CPT/HCPCS: 36415; 74177; 80053; 81003; 83690; 85025; 96361; 96374; 96375; 99284; J0737; J1171; J1200; J2060; J2919; Q9967

== ENCOUNTER → 2024-10-16 01:16 | Outpatient (BNV) | payer OTHER, SELFPAY | PROVIDERS: Emergency Provider Emergency Medicine; Visit Provider Radiology Neuroradiology | DX: R19.5 Other fecal abnormalities (principal) | CPT/HCPCS: 74177 ==

== ENCOUNTER 2025-02-05 09:03 | Outpatient (REF) | payer OTHER, SELFPAY ==
--- OUTSIDE RECORDS SUMMARY | 2025-02-05 09:39 | XMS_ITS | Clinical Summary ---
Author Organization [facility] Address [address] [place] [id number] Phone Care Team Providers Care C2 Tactical Analysis Technician Name Role Phone Manuel Harris MD Primary Care Provider + Allergies Active Allergy Reactions Criticality Noted Date Comments Prochlorperazine Edisylate 7 Haloperidol 10/16/2020 Morphine 06/03/2017 Metoclopramide Hcl 06/03/2017 Sulfa (Sulfonamide Antibiotics) 05/13 Ketorolac 06/03/2017 Ondansetron Hcl Hives 10/20/2018 Medications clonazePAM (KLONOPIN) 1 MG tablet Active promethazine (PHENERGAN) 25 MG tablet Active cyclobenzaprine (FLEXERIL) 10 MG tablet Active amitriptyline (ELAVIL) 10 MG tablet Active zolpidem (AMBIEN) 10 mg tablet Active traMADol (ULTRAM) 50 mg tablet Active omeprazole (PRILOSEC) 20 MG tablet Active Active Problems No known active problems Social History Tobacco Use Types Packs/Day Years Used Date Smoking Tobacco: Never Smokeless Tobacco: Never Alcohol Use Standard Drinks/Week Comments No 0 (1 standard drink = 0.6 oz pur e alcohol) Education Answer Date Recorded Are you interested in more education? Not on kevin e 11/06/2022 Are you concerned about learning? Not on file 11/06/2022 No 11/06/2022 No 11/06/2022 Digital Access Answer Date Recorded No 12/07/2022 No 12/07/2022 No 12/07/2022 Reliable internet access at home? Not on file 12/07/2022 Device with a working camera? Not on file Sex and Gender Information Value Date Recorded Sex Assigned at Male 01/04/2018 7:14 PM EDT Legal Sex Male 9:24 PM EDT Gender Identity Male 01/04/2018 7:14 PM EDT Sexual Orientation Straight 01/04/2018 7: 14 PM EDT Last Filed Vital Signs Vital Sign Reading Time Taken Comments Blood Pressure 108/70 02/16/2022 8:31 AM EDT Pulse 70 02/16/2022 8:31 AM EDT Temperature 36.3 C (97.3 F) 02/16/2022 4:54 AM EDT Respiratory Rate 16 02/16/2022 8:31 AM EDT Oxygen Saturation 97% 02/16/2022 8:31 AM EDT Inhaled Oxygen Concentration - - Weight 72.6 kg (160 lb) 02/16/2022 4:54 AM EDT Height 162.6 cm (5' 4 ) 02/16/2022 4:54 AM EDT Body Mass Index 27.46 02/16/2022 4:54 AM EDT Plan of Treatment Not on file Medical Devices Not on file Insurance MEDICARE REPLACEMENT [employer]TER[employer] [id number] [place] [address] MEDICARE REPLACEMENT MEDICARE REPLACEMENT CARE MEDICARE REPLACEMENT CARE MEDICARE REPLACEMENT CARE MEDICARE [place] [address] [place] [address] [employer] MEDICARE REPLACEMENT Care Teams C2 Tactical Analysis Technician Relationship Specialty Start Date End Date Manuel Harris MD [address] [place] [address] PCP - General Internal Medicine 10/20/18 Additional Source Comments The information contained in this document represents components of the legal health record. It is not the complete legal health record.[facility]
--- OUTSIDE RECORDS SUMMARY | 2025-02-05 09:39 | XMS_ITS | Continuity of Care Document ---
Author Name Hood Farmer Address [address] [place] [address] Organization Unknown Address [address] [place] [address] Medications No known medications Problems No known problems
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
--- OUTSIDE RECORDS SUMMARY | 2025-02-05 09:39 | XMS_ITS | Clinical Summary ---
Author Organization [employer] Address [address] [place] [address] 7 [place] [address] Care Team Providers Care Site Foreman Name Role Phone Daina Pichardo MD Primary [...] daily Active ergocalciferol (Vitamin D-2) 1.25 MG (74089 UT) capsule Take 50,000 Units by mouth 1 (one) time per week. 01/22/20 Active ferrous gluconate (Fergon) 324 (38 Fe) MG tabletIndicatio ns:Crohn's disease of small intestine with complication (CMS/HCC),Ileal pouchitis (CMS/HCC) Take 1 tablet Every Wednesday, Wednesday, and Wednesday with food 30 tablet 11 08/31/19 24 Active Syringe/Needle, Disp, 25G X 5/8 3 ML misc USE TO INJECT VITAMIN B12 ONCE A MONTH 12 each 3 02/11/20 24 Active naloxone (Narcan) 4 mg/0.1 mL nasal spray Administer 1 spray (4 mg) into affected nostril(s) if needed for opioid reversal or respiratory depression. 2 each 1 09/06/19 25 Active hydrocortisone 1 % creamIndication s:Ileal pouchitis (CMS/HCC),Healt h care maintenance [facility] g 1 11/01/19 25 Active loratadine (Claritin) 10 MG tablet TAKE 1 TABLET BY MOUTH EVERY DAY 90 tablet 1 12/30/19 25 Active omeprazole (PriLOSEC) [address] capsule TAKE 1 CAPSULE BY MOUTH BEFORE BREAKFAST. DO NOT CRUSH OR CHEW. 90 capsule 01/09/20 25 Active oxyCODONE (Roxicodone) 5 MG immediate release tabletIndicatio ns:Pain Take 2 tablets (10 mg) by mouth every 8 (eight) hours if needed for severe pain for up to 27 days. Take 1-2 tablets (5-10 mg) by mouth every 8 (eight) hours if needed for severe pain for up to 27 days. Do not start before January 13, 2025. 160 tablet 01/14/20 25 2024 Active zolpidem (Ambien) 10 MG tabletIndicatio ns:Insomnia, unspecified type TAKE 1 TABLET BY MOUTH IF NEEDED AT BEDTIME FOR SLEEP X 28 DAYS 28 tablet 01/16/20 25 Active clonazePAM (KlonoPIN) 1 MG tabletIndicatio ns:Anxiety TAKE 1 TABLET BY MOUTH IF NEEDED IN THE MORNING AND AT BEDTIME FOR ANXIETY FOR UP TO 28 DAYS. 28 tablet 01/20/20 25 Active cyanocobalamin (Vitamin B-12) 1000 MCG/ML injectionIndica tions:Crohn's disease of small intestine with complication (CMS/HCC),Ileal pouchitis (CMS/HCC) INJECT 1 ML INTO THE SHOULDER, THIGH, OR BUTTOCKS EVERY 30 DAYS 3 mL 3 02/02/20 Active cyanocobalamin (Vitamin B-12) 1000 MCG/ML injectionIndica tions:Crohn's disease of small intestine with complication (CMS/HCC),Ileal pouchitis (CMS/HCC) INJECT 1 ML INTO THE SHOULDER, THIGH, OR BUTTOCKS EVERY 30 DAYS 1 mL 11 12/21/19 24 2024 Discontinued omeprazole (PriLOSEC) [address] capsule TAKE 1 CAPSULE BY MOUTH BEFORE BREAKFAST. DO NOT CRUSH OR CHEW. 90 capsule 10/03/19 25 2024 Discontinued clonazePAM (KlonoPIN) 1 MG tabletIndicatio ns:Anxiety Take 1 tablet (1 mg) by mouth if needed in the morning and at bedtime for anxiety for up to 28 days. TAKE 1 TABLET (1 MG) BY MOUTH IF NEEDED IN THE MORNING AND AT BEDTIME FOR ANXIETY FOR UP TO 28 DAYS. Do not start before December 23, 2024. 28 tablet 12/24/19 25 2024 Discontinued oxyCODONE (Roxicodone) 5 MG immediate release tabletIndicatio ns:Pain Take 2 tablets (10 mg) by mouth every 8 (eight) hours if needed for severe pain for up to 27 days. Take 1-2 tablets (5-10 mg) by mouth every 8 (eight) hours if needed for severe pain for up to 27 days. 160 tablet 12/20/19 25 2024 Discontinued(R eorder (will not trigger notification to Pharmacy)) zolpidem (Ambien) 10 MG tabletIndicatio ns:Insomnia, unspecified type TAKE 1 TABLET BY MOUTH IF NEEDED AT BEDTIME FOR SLEEP X 28 DAYS 28 tablet 12/20/19 25 2024 Discontinued Active Problems Problem Noted Date Diagnosed Date Chronic, continuous use of opioids 10/31/2024 Hyperlipidemia 04/13/2023 CYDNEY (obstructive sleep apnea) 04/13/2023 Depression with anxiety 02/16/2023 Health care maintenance 02/16/2023 Nephrolithiasis 02/16/2023 History of colectomy 06/09/2018 Crohn's disease of small intestine with complica tion 01/11/2018 Overview (08/03/2022): Crohn's disease characteristics: Diagnosis date and disease extent: Inflammatory bowel disease: Diagnosis of ulcerative colitis in 2000. Determined to have Crohn's disease 2017 by pouchoscopy and VCE showing small bowel inflammation. History of severe disease: Yes Endoscopic evaluation: Anal fissure found on perianal exam. Ileoanal pouch, afferent limb, pre-pouch ileum and neoterminal ileum are normal. Pouchoscopy October 28, 2017 showing ileitis concerning for Crohn's disease as well as mild pouchitis. Small bowel evaluation: Video capsule endoscopy December 14, 2017 showing enteritis in the entire small bowel consistent with mild to moderate Crohn's disease as well as enteritis in the region of the J-pouch. IBD Surgical history: Total abdominal colectomy and ileoanal J-pouch anastomosis in 2006 at [facility]. IBD Complications: Recurrent small bowel obstructions of unclear cause; pouchitis. Prior history of anal abscess. Abnormal liver function tests: Unclear cause. Normal MRCP January 2018. IBD Medications: Previously treated with prednisone, enemas, Asacol, Balsalazide. Humira started January 2018 after diagnosis of Crohn's disease. Health Maintenance: PCV13 and TDAP January 2018. [...] and then presented to the hospital at [facility]. He therefore missed his colonoscopy. Patient's symptoms [...] him on a prednisone taper. Migraine 02/01/2012 UC (ulcerative colitis) Resolved Problems Problem Noted Date Diagnosed Date Resolved Date Left eye pain 02/16/2023 04/13/2023 Extensor carpi ulnaris tendinitis 09/19/2021 02/16/2023 Perianal abscess 06/02/2017 02/15/2023 Complications of intestinal pouch 01/04/2017 02/16/2023 Elevated LFTs 01/31/2013 04/13/2023 Backache 02/01/2012 02/16/2023 Anxiety 02/01/2012 02/16/2023 Encounters Date Type Department Care Team Description 02/02/[address] [address] Daina Pichardo MD Labs Only 02/01/2025 Telephone [facility] [address] [place] [address] Hanna Mark RN 02/01/[address] [address] Daina Pichardo MD Crohn's disease of small intestine with complication (CMS/HCC); Ileal pouchitis (CMS/HCC) 01/31/2025 2:15 PM EDT Clinical Support [facility] [address] [place] [address] Hanna Mark RN Back pain, unspecified back location, unspecified back pain laterality, unspecified chronicity (Primary Dx) 01/31/2025 Telephone [facility] [address] [place] [address] Hanna Mark RN 01/31/2025 Travel 01/31/2025 Telephone [facility] [address] [place] [address] Hanna Mark RN 01/31/[address] [address] Daina Picharod MD Appointment Request 01/30/2025 Travel 01/16/[address] [address] Daina Pichardo MD Nurse Triage 01/15/[address] [place] [address] Daina Pichardo MD chart prep 01/15/2025 Telephone [facility] [address] [place] [address] Daina Pichardo MD Med Refill 01/15/2025 Refill [facility] [address] [place] [address] Daina Pichardo MD Insomnia, unspecified type 01/13/2025 Refill [facility] [address] [place] [address] Daina Pichardo MD Insomnia, unspecified type; Anxiety 01/10/2025 Travel 01/10/2025 Telephone [facility] [address] [place] [address] Hanna Mark RN 01/10/2025 Telephone [facility] [address] [place] [address] Daina Pichardo MD Med Refill 01/10/2025 Refill [facility] [address] [place] [address] Daina Pichardo MD Pain 01/07/2025 Refill [facility] [address] [place] [address] Zarina Alarcon MD 12/27/2024 Refill [facility] [address] [place] [address] Zarina Alarcon MD 12/22/2024 Telephone [facility] [address] [place] [address] Daina Pichardo MD Nurse Triage 12/21/2024 Telephone [facility] [address] [place] [address] Daina Pichardo MD Chart Prep 12/18/2024 Refill [facility] [address] [place] [address] Daina Pichardo MD Anxiety; Pain; Insomnia, unspecified type 12/18/2024 Refill [facility] [address] [place] [address] Daina Pichardo MD Insomnia, unspecified type 12/15/2024 Patient Outreach [facility] [address] [place] [address] Daina Pichardo MD Pre-visit Planning (SDOH was already completed) 12/15/2024 Travel 12/14/2024 Telephone [facility] [address] [place] [address] Daina Pichardo MD 12/14/2024 Telephone [facility] [address] [place] [address] Daina Pichardo MD 12/14/2024 Travel 12/13/2024 Travel 12/13/2024 Telephone [facility] [address] [place] [address] Hanna Mark RN 12/13/2024 Telephone [facility] [address] [place] [address] Daina Pichardo MD Nurse Triage 12/13/2024 Telephone [facility] [address] [place] [address] Daina Pichardo MD Appointment Request 11/23/2024 Refill [facility] [address] [place] [address] Hanna Mark, RN Anxiety; Pain 11/23/2024 Refill [facility] [address] [place] [address] Daina Pichardo MD Insomnia, unspecified type 11/23/2024 Telephone [facility] [address] [place] [address] Daina Pichardo MD Med Refill 11/16/2024 Travel 11/16/2024 Telephone [facility] [address] [place] [address] Hanna Mark, RN group billing coordinator 11/16/2024 Telephone [facility] [address] [place] [address] Daina Pichardo MD Appointment Request from Last 3 Months Immunizations Immunization Administration Dates Next Due DT (pediatric) 11/10/2010 [...] Answer Date Recorded Patient Health Questionnaire-9 Score 0 10/31/2024 Patient Health Questionnaire-9 Score 0 10/31/2024 Last PHQ-9: Questionnaire Data Not on file 0 10/31/2024 Housing Stability Answer Date Recorded What is your housing situation today? I have balwinder levy 10/23/[address] you li ve. Do you have problems with any of the following? None of the above 10/23/2024 Food Insecurity Answer Date Recorded Within the past 12 months, y ou worried that your food would run out before you got money to buy more: Never True 10/23/2024 Within the past 12 months,th e food you bought just didn't last and you didn't have enough money to get more: Never True Transportation Answer Date Recorded In the past 12 months, has l ack of transportation kept you from medical appts, meetings, work or from getting things needed for daily living? No 10/23/2024 Utilities Answer Date Recorded In the past 12 months, has t he electric, gas, oil or water company threatened to shut off services in your home? No 10/23/2024 Depression Answer Date Recorded Patient Health Questionnaire-2 Score 0 10/31/2024 Internet Access Answer Date Recorded Internet Access Q1 Yes 10/23/2024 Internet Access Q2 Not on file 10/23/2024 Sex and Gender Information Value Date Recorded Sex Assigned at Male 05/11/2022 10:16 AM EDT Legal Sex Male 10:16 AM EDT Gender Identity Male 02/15/2023 11:13 AM EDT Sexual Orientation Straight 02/15/2023 11 :13 AM EDT Last Filed Vital Signs Vital Sign Reading Time Taken Comments Blood Pressure 111/71 10/31/2024 9:19 AM EDT Pulse 76 10/31/2024 9:19 AM EDT Temperature 36.4 C (97.6 F) 10/31/2024 9:19 AM EDT Respiratory Rate 17 10/31/2024 9:19 AM EDT Oxygen Saturation 97% 10/31/2024 9:19 AM EDT Inhaled Oxygen Concentration - - Weight 68.6 kg (151 lb 3.2 oz) 10/31/2024 9:19 A M EDT Height 165.1 cm (5' 5 ) 10/31/2024 9:19 AM EDT Body Mass Index 25.16 10/31/2024 9:19 AM EDT Plan of Treatment Upcoming Encounters Date Type Department Care Team (Late st Contact Info) Description 03/01/2025 9:00 AM EDT Clinical Support [facility] [address] [place] [address] Hanna Mark, RN [address] [place] [address] Health Maintenance Due Date Last Done Comments Alcohol/Substance Use Screening 1990 Family Planning (PISQ) 1993 COVID-19 Vaccine ( season) 2024 07/07/2021, 12/28/2020, 11/30/2020 Influenza Vaccine (#1) 2025 , 02/24/2023, 03/24/2022, Additional history exists Depression Screening 10/31/2025 10/31/2024, 11/01/19 Disability Screening 10/31/2025 10/31/2024 SDOH Screening 10/31/2025 10/31/2024 Tobacco Screening 10/31/2025 10/31/2024 DTaP/Tdap/Td Vaccines (3 - Td or Tdap) 01/12/2028 01/11/2018, 05/11/2012, 03/08/2001 Zoster Vaccines (1 of 2) 2028 Lipid Panel 12/19/2028 12/20/2023, 03/25/2023 RSV Patients and Patients Aged 60 years or older (1 - 1-dose 75+ series) 2053 Pneumococcal Vaccine: Pediatrics (0 to 5 Years) and At-Risk Patients (6 to 49) Years Aged Out 04/04/2018, 01/11/2018, 01/21/2013, Additional history [...] Comments POCT JUVE-14 URINE DRUG SCREEN Routine 01/31/2025 2:44 PM EDT Back pain, unspecified back location, unspecified back pain laterality, unspecified chronicity LIPID PANEL, STANDARD Routine 12/20/2023 8:58 AM EDT Hyperlipidemia, unspecified hyperlipidemia type HEPATITIS C AB W/REFL TO HCV RNA, QN, PCR Routine 03/25/2023 10:15 AM EDT Health care maintenance HIV ANTIBODY/ANTIGEN ([place] DPH) Routine 03/25/2023 10:15 AM EDT from Last 3 Months or Most Recently Relevant to Health Maintenance Results * (ABNORMAL) POCT JUVE-14 Urine Drug Screen (01/31/2025 2:44 PM EDT) THC Negative Negative Cocaine Screen, Urine Negative Negative Opiate Screen, Urine Negative Negative Methamphetamine Screen Urine Negative Negative Amphetamine Screen, Urine Negative Negative Benzodiazepines Screen, Urine Positive(A) Negative Barbiturate Screen, Urine Negative Negative Methadone Screen, Urine Negative Negative Buprenophine Screen, Urine Negative Negative TCA, Urine Negative Negative MDMA Urine Negative Negative ng/mL Oxycodone Screen, Urine Positive(A) Negative Phencyclidine (PCP), Urine Negative Negative Propoxyphene, Urine Negative Negative Fentanyl, Urine Negative Negative Urine Urine specimen obtained by clean catch procedure / Unknown 01/31/2025 2:44 PM EDT Narrative Hanna Mark RN - 01/31/2025 2:44 PM EDT Internal Pass Control Lot# [id number] Exp: 05-11-26 us Daina Quinn MD POINT OF CARE BEATRIZ T ENTER/EDIT ORDERABLES Final Result * Lipid Panel, Standard (12/20/2023 8:58 AM EDT) Triglycerides 107 <150 mg/dL [facility] Comment:Desirable Triglyceri de: less than 150 mg/dLBorderline High Triglyceride 150-199 mg/dLHigh Triglyceride: 200-499 mg/dLVery High Triglyceride: greater than or equal to 5OO mg/dL Cholesterol 185 <200 mg/dL [facility] Comment:Desirable Cholestero l: less than 200 mg/dLBorderline High Cholesterol: 200-239 mg/dLHigh Cholesterol: greater than 239 mg/dL LDL Cholesterol Calculated 97 <100 mg/dL [facility] Comment:Desirable LDL: less than 100 mg/dLNear Optimal/Above Optimal LDL: 110- 129 mg/dLBorderline High LDL: 130-159 mg/dLHigh LDL: 160-189 mg/dLVery High LDL: greater than or equal to 190 mg/dL HDL Cholesterol 67 >40 mg/dL [facility] Comment:Desirable HDL: great er than 40 mg/dL Note: This HDL assay may give artificially low results in patients with liver disease. Blood Venous blood specimen / Unknown 12/20/2023 8:58 AM EDT 12/20/2023 11:44 AM EDT Daina Quinn MD LAB BLOOD ORDERAB LES Final Result [facility] [address] [place] [phone] * HIV Ab/Ag ([facility]) (03/25/2023 10:15 AM EDT) HIV AB/AG Nonreactive Nonreactive [facility] Comment:HIV-1 p24 Ag and/or HIV-1/HIV-2 Ab not detected.A test result that is nonreactive does not exclude thepossibility of exposure to or infection with HIV-1 and/orHIV-2. Nonreactive results in this assay for individualswith prior exposure to HIV-1 and/or HIV-2 may be due toantigen and antibody levels that are below the limit ofdetection of this assay.The Gudog HIV Ag/Ab Combo assay result andsupplemental assay results should be interpreted inconjunction with the patient's clinical presentation,history and other laboratory results. If the results areinconsistent with clinical evidence, additional testing issuggested to confirm the result. 03/25/2023 10:1 5 AM EDT 03/25/2023 11:28 AM EDT us Daina Quinn MD LAB BLOOD ORDERAB LES Final Result Performing Organization Address City/[facility]/ZIP Co de Phone Number [facility] [address] [place] [address] [phone] * Hepatitis C Antibody with Reflex to HCV, RNA, Quantitative, Real-Time PCR (03/25/2023 10:15 AM EDT) Hepatitis C Antibody Nonreactive Nonreactive [facility] Comment:Antibodies to HCV no t detected; does not exclude early acuteHCV infection. Blood Venous blood specimen / Unknown 03/25/2023 10:15 AM EDT 03/25/2023 11:28 AM EDT us Daina Quinn MD LAB BLOOD ORDERAB LES Final Result Performing Organization Address City/[facility]/ZIP Co de Phone Number [facility] [address] [place] [address] [phone] from Last 3 Months or Most Recently Relevant to Health Maintenance Insurance [place] [address] [facility] CARE < 65 KATIE PATTERSON [id number] Care Teams Site Foreman Relationship Specialty Start Date End Date Daina Pichardo MD [address] [place] [phone] PCP - General Internal Medicine 12/16/22
--- OUTSIDE RECORDS SUMMARY | 2025-02-05 09:39 | XMS_ITS | Clinical Summary ---
Author Organization [facility] Address [address] [place] [address] Care Team Providers Care Metal Sorter Name Role Phone Daina Pichardo Primary Care Provider [phone] Allergies Active Allergy Reactions Criticality Noted Date [...] 3 1 Active omeprazole (PriLOSEC) 20 mg capsuleIndication s:Crohn's disease of small intestine with complication (HCC),Gastroesoph ageal reflux disease with esophagitis, unspecified whether hemorrhage [...] skin every 7 days. 4 each 1 02/01/2025 8:38 AM EDT 5 03/02/20 25 Active Active Problems Problem Noted Date Diagnosed Date Preoperative clearance 04/01/2020 Crohn's disease of small intestine with complica tion 01/11/2018 Overview (03/04/2020): Crohn's disease characteristics: Diagnosis date and disease extent: Inflammatory bowel disease: Diagnosis of ulcerative colitis in 2000. Determined to have Crohn's disease 2018 by pouchoscopy and VCE showing small bowel [...] and ileoanal J-pouch anastomosis in 2006 at [facility]. IBD Complications: Recurrent small bowel obstructions [...] and then presented to the hospital at [facility]. He therefore missed his colonoscopy. Patient's [...] (09/20/2017): Added automatically from request for surgery [id number] Diarrhea 09/20/2017 Overview (09/20/2017): Added automatically from request for surgery [id number] Perianal abscess 06/02/2017 Ileal pouchitis 02/23/2017 Abdominal pain 01/04/2017 Complications of intestinal pouch 01/04/2017 Encounters Date Type Department Care Team Description 12/25/2024 Refill [facility] [address] [place], [place] [phone] Care Management Associate: Josue Hamm MD PhD from Last 3 Months Immunizations Immunization Administration [...] 68 05/05/2024 4:31 PM EDT Temperature 36 C (96.8 F) 05/05/2024 1:47 PM EDT Respiratory Rate 12 [...] Care Team (Late st Contact Info) Description 03/14/2025 11:00 AM EDT Follow-Up [facility] [address] [place] [phone] Care Management Associate: Lesli Solis Health Maintenance Due Date Last Done Comments Cologuard 1978 Colonoscopy 1978 HIV Screening 1978 Sigmoidoscopy 03/10/2024 03/10/2019, 03/10/2019 COVID-19 Vaccine ( season) 2024 07/07/2021, 12/28/2020, 11/30/2020 Colon Cancer Screening 03/25/2024 FOBT / Fit Test 03/25/2024 03/25/2023 Alcohol/Substance Use Screening 07/12/2024 Depression Screening and Follow-Up 07/12/2024 Social Drivers of Health Annual Screening 07/12/2024 Influenza Vaccine (#1) 2025 , 02/24/2023, 03/24/2022, Additional history exists DTaP,Tdap,and Td Vaccines (4 - Td or [...] Completed 12/21/2023, 06/11/2023, 04/13/2023, Additional history exists Procedures * Due to [place] state law, this organization might not be sharing negative HIV tests. Procedure Name Priority Date/Time Associated Diagnosis Comments HEPATITIS C RNA, QUANTITATIVE PCR W/REFLEX HCV GENOTYPE Routine 01/11/2018 12:08 PM EDT Crohn's disease of small intestine with complication from Last 3 Months or Most Recently Relevant to Health Maintenance Results * Due to [place] state law, this organization might not be sharing negative HIV tests. * Hepatitis C PCR w/Reflex HCV Genotype (01/11/2018 12:08 PM EDT) Pathologist [facility] RNA, Quantitative Real Time PCR <15 NOT DETECTED NOT DETECTED IU/mL 01/13/2018 10:07 PM EDT [facility] Hcv RNA, Quantitative Real Time PCR <1.18 NOT DETECTED NOT DETECTED Log IU/mL 01/13/2018 10:07 PM EDT [facility] Comment: This test was performed using Real-Time Polymerase Chain Reaction. Reportable Range: 15 IU/mL to 100,000,000 IU/mL (1.18 Log IU/mL to 8.00 Log IU/mL). The analytical performance characteristics of this assay have been determined by [employer]. The modifications have not been cleared or approved by the FDA. This assay has been validated pursuant to the CLIA Regulations and is used for clinical purposes. For more information on this test, go to: http://education.Travark/faq/GNW86b3 (This link is being provided for informational/ Educational purposes only.) Blood specimen (specimen) Structure of peripheral vein / Unknown Venipuncture / Unknown 01/11/2018 12:08 PM EDT 01/11/2018 12:20 PM EDT Narrative [facility] JOSE LUIS - 01/13/2018 10:07 PM EDT [facility] Received Date: us Luis Doherty MD LAB BLOOD ORDERABLES Edited Result - Final [facility] [address] [facility] [address], [place] [address], [place] [phone] [facility] [address], [place] [address], [place] [phone] from Last 3 Months or Most Recently Relevant to Health Maintenance Insurance [facility] KATIE PATTERSON [id number] Advance Directives Documents on File Type Date Recorded Patient Wood Preparation Supervisor Expl anation Health Care Proxy 06/02/2017 11:11 AM * Full Code (Latest Code Status on File) Date Activated Date Inactivated Comments 05/05/2024 3:58 PM 05/05/2024 7:04 PM Care Teams Metal Sorter Relationship Specialty Start Date End Date Daina Pichardo PCP - General 10/12/23
[2025-02-05 11:39] LABS: Hematocrit 43.8 % (42.0-52.0); Hemoglobin 14.5 g/dl (14.0-18.0); Mean Corpuscular HGB Conc 33.1 g/dl (31.0-36.0); Mean Corpuscular Hemoglobin 31.2 pg (27.0-33.0); Mean Corpuscular Volume 94.2 fL (80.0-98.0); NRBC Abs Auto 0.000 X10*3/uL (0.0-0.012); NRBC Pct Auto 0.0 /100WBC (0.0-0.2); Platelet Count 179 X10*3/uL (160-400); Red Blood Count 4.65 X10*6/uL (4.60-5.80); White Blood Count 5.2 X10*3/uL (4.8-10.8)
[2025-02-05 12:06] LABS: Hemoglobin A1C 106.3583 umol/L; Total Hemoglobin (HGBA1C) 3685.9859 umol/L
[2025-02-05 12:20] LABS: Syphilis Screen Nonreactive (Nonreactive)
[2025-02-05 12:21] LABS: Alanine Aminotransferase 19 U/L (0-40); Albumin Level 4.5 g/dL (3.5-5.0); Alkaline Phosphatase 70 U/L (39-117); Anion Gap 10 (12-20); Aspartate Amino Transferase 26 U/L (5-37); Blood Urea Nitrogen 9 mg/dL (9-16); Calcium 9.6 mg/dL (8.4-10.2); Carbon Dioxide 31 mmol/L (22-29); Chloride 105 mmol/L (96-108); Cholesterol 185 mg/dL (<200); Estimated Glomerular Filt Rate > 60; HDL Cholesterol 68 mg/dL (>40); Iron 99 mcg/dL (45-160); Magnesium 2.1 mg/dL (1.6-2.6); Percent Iron Saturation 34 % (15-50); Potassium 3.8 mmol/L (3.3-5.1); Sodium 142 mmol/L (135-145); Total Iron Binding Capacity 293 mcg/dL (228-428); Total Protein 7.9 g/dL (6.5-8.0); Triglycerides 96 mg/dL (<150); Unsaturated Iron Binding 194 ug/dL
[2025-02-05 12:27] LABS: Ferritin 113 ng/mL (20-250)
[2025-02-05 12:42] LABS: Folate 10.4 ng/mL (> or = 4.0); Vitamin B12 515 pg/mL (200-900)
[2025-02-05 13:35] LABS: CT PCR Urine NOT DETECTED (Not Detect.); NG PCR Urine NOT DETECTED (Not Detect.)
[2025-02-05 14:16] LABS: HBS Num1 0.38 mIU/mL (0-7.99); HBc Num1 0.12 S/CO (0.00-0.79); HBsAGNum1 0.36 S/CO (0.00-0.99); HIV Num 1 0.05 S/CO (0.00-0.99); Hepatitis B Surface Antigen Negative (Negative); ~HepC Num1 0.18 S/CO (0.00-0.79); ~Hepatitis B Surface Antibody NONREACTIVE (Nonreactive); ~Hepatitis C Antibody Nonreactive (Nonreactive)
== END 2025-02-05 09:04 | disposition home or self-care (01) ==
LOC: HO.HHCL 09:03
PROVIDERS: PCP Student in an Organized Health Care Education/Training Program; Visit Provider Student in an Organized Health Care Education/Training Program
DX: Z00.00 Encounter for general adult medical examination without abnormal findings (principal); Z11.3 Encounter for screening for infections with a predominantly sexual mode of transmission; Z11.4 Encounter for screening for human immunodeficiency virus [HIV]; Z11.59 Encounter for screening for other viral diseases
CPT/HCPCS: 36415; 80053; 80061; 82306; 82607; 82728; 82746; 83036; 83540; 83735; 84443; 85027; 86704; 86706; 86780; 86803; 87340; 87389; 87491; 87591

== ENCOUNTER 2025-03-01 00:02 | Emergency (ER) | payer OTHER, SELFPAY ==
--- NOTE | ~2025-03-01 | CT_ITS ---
CLINICAL HISTORY: diffuse abd pain, hx UC and crohns CT abdomen and pelvis with contrast Comparison: CT - CT ABDOMEN PELVIS W IV CON - 03/01/25 02:[address]/SR - CT ABDOMEN PELVIS W IV CON - 10/16/24 01:56 EDT Findings: No consolidation or effusion. Gallbladder is surgically absent. No focal hepatic lesion. Pancreas, spleen and adrenal glands are within normal limits. Kidneys enhance symmetrically and are non hydronephrotic. Nonobstructing renal calculi are present. Extensive postsurgical changes are noted in the abdomen with the anastomotic sutures in the rectum. Pelvic contents unremarkable. The bones are intact. IMPRESSION: No acute findings. This document has been electronically signed by: Mario Oliveira MD, PHD on 03/01/2025 04:47:21
[2025-03-01 00:04] VITALS: BP 116/71; PULSE 72; RESP 20; TEMP 36.6; O2SAT 98; BMI 24.1
[2025-03-01 00:16] LABS: MANUAL DIFF FLAG NO
[2025-03-01 00:20] LABS: Hematocrit 40.8 % (42.0-52.0); Hemoglobin 14.1 g/dl (14.0-18.0); Imm Gran Abs Auto 0.01 X10*3/uL (0.00-0.03); Imm Gran Pct Auto 0.1 % (0.0-0.4); Lymphocytes Absolute Auto 2.1 X10*3/uL (1.2-4.9); Mean Corpuscular HGB Conc 34.6 g/dl (31.0-36.0); Mean Corpuscular Hemoglobin 31.8 pg (27.0-33.0); Mean Corpuscular Volume 92.1 fL (80.0-98.0); NRBC Abs Auto 0.000 X10*3/uL (0.0-0.012); NRBC Pct Auto 0.0 /100WBC (0.0-0.2); Platelet Count 181 X10*3/uL (160-400); Red Blood Count 4.43 X10*6/uL (4.60-5.80); White Blood Count 7.2 X10*3/uL (4.8-10.8)
[2025-03-01 00:36] LABS: Alanine Aminotransferase 37 U/L (0-40); Albumin Level 4.3 g/dL (3.5-5.0); Alkaline Phosphatase 78 U/L (39-117); Anion Gap 13 (12-20); Aspartate Amino Transferase 33 U/L (5-37); Blood Urea Nitrogen 12 mg/dL (9-16); Calcium 9.2 mg/dL (8.4-10.2); Carbon Dioxide 27 mmol/L (22-29); Chloride 107 mmol/L (96-108); Creatinine Clr Calc Pharmacy 113.0; Estimated Glomerular Filt Rate > 60; Potassium 3.8 mmol/L (3.3-5.1); Sodium 143 mmol/L (135-145); Total Protein 7.5 g/dL (6.5-8.0)
[2025-03-01 02:00] VITALS: BP 126/82; PULSE 70; RESP 18; TEMP 36.9; O2SAT 99
--- NOTE | 2025-03-01 02:45 | ED.ABDPAIN ---
HPI - Abdominal Pain General Chief Complaint: Abdominal Pain Stated Complaint: crohn's disease Time Seen by Provider: 03/01/25 01:19 Source: patient Mode of arrival: ambulatory Limitations: no limitations History of Present Illness ED Provider: Dr. Samara Stark HPI narrative: Patient comes to the emergency room complaining of abdominal pain for couple of days. Patient states that he has history of both ulcerative colitis status post colectomy and later in life developed Crohn's disease. Patient states that he gets weekly Humira injections. Patient states that he has noticed in the last few weeks that 1-2 days before he is due for injection, he starts having abdominal pain. Patient got his shot yesterday. Patient states that this time it was different because he is having worsening abdominal pain and yesterday had bloody stool. Patient states that he has had history of small-bowel obstruction. Patient states that although it feels like it, he does not believe he has 1 since he has been moving his bowels. Patient states that he called his primary care physician yesterday, he was prescribed oxycodone for pain. However, because the patient has been vomiting, he has not been able to take his pain medications. Related Data Home Medications ?Medication ?Instructions ?Recorded ?Confirmed adalimumab 40 mg/0.4 mL 40 mg subcut TH@0900 08/19/21 06/19/24 subcutaneous pen kit (Humira(CF) Pen) clonazepam 1 mg tablet 1 tab PO BID PRN Anxiety 08/19/21 06/19/24 loratadine 10 mg tablet 1 tab PO DAILY PRN Allergy Symptoms 08/19/21 06/19/24 omeprazole 20 mg capsule,delayed 20 mg PO DAILY@0630 08/19/21 06/19/24 release zolpidem 10 mg tablet 1 tab PO BEDTIME 08/19/21 06/19/24 multivitamin with folic acid 400 1 tab PO DAILY 06/11/22 06/19/24 mcg tablet (Daily-Davis (with folic acid)) cyanocobalamin (vitamin B-12) 1,000 mcg IM QMONTH 06/19/24 06/19/24 1,000 mcg/mL injection solution ferrous gluconate 324 mg (38 mg 324 mg PO MOWEFR 06/19/24 06/19/24 iron) tablet Previous Rx's ?Medication ?Instructions ?Recorded methylnaltrexone 150 mg tablet 450 mg (3 x 150 mg) PO DAILY #20 10/16/24 (Relistor) tabs polyethylene glycol 3350 17 17 g PO BID PRN laxative effect 10/16/24 gram/dose oral powder (Miralax) #510 grams sodium phosphates 19 gram-7 197 ml MS DAILY 31 days #133 mL 10/16/24 gram/118 mL enema (Fleet Enema) metoclopramide HCl 5 mg tablet 5 mg PO Q8H PRN nausea and 03/01/25 (Reglan) vomiting #14 tabs Allergies Allergy/AdvReac Type Severity Reaction Status Date / Time ondansetron (Ondansetron) Allergy Mild HIVES Verified 03/01/25 00:06 Sulfa (Sulfonamide Allergy Mild UNKNOWN Verified 03/01/25 00:06 Antibiotics) ketorolac Allergy Unknown Unknown Verified 03/01/25 00:06 meperidine (Demerol) Allergy Unknown Unknown Verified 03/01/25 00:06 metoclopramide (Reglan) Allergy Unknown Unknown Verified 03/01/25 00:06 morphine (Morphine) Allergy Unknown RASH Verified 03/01/25 00:06 haloperidol (From Haldol) Allergy Anaphylaxis Verified 03/01/25 00:06 ketamine Allergy Unknown Verified 03/01/25 00:06 From REGLAN Allergy Mild PT UNSURE Uncoded 03/01/25 00:06 BUT STATES HE IS ALLERGIC Compro Allergy Unknown Unknown Uncoded 03/01/25 00:06 From COMPAZINE Allergy Unknown ITCHING Uncoded 03/01/25 00:06 From Demerol Allergy Unknown ITCHY HIVES Uncoded 03/01/25 00:06 From Toradol Allergy Unknown UNK Uncoded 03/01/25 00:06 Review of Systems Review of Systems Constitutional : No Weight loss, No Fever, No Chills, No Night Sweats, No Fatigue, No Malaise ENT/Mouth : No Hearing loss, No Ear Pain, No Nasal Congestion, No Sinus Pain, No Hoarseness, No sore throat, No Rhinorrhea, No Swallowing Difficulty Eyes: No Eye Pain, No Swelling, No Redness, No Foreign Body, No Discharge, No Vision Changes Cardiovascular : No Chest Pain, No SOB, No Dyspnea on Exertion, No Orthopnea, No Edema, No Palpitations Respiratory : No Cough, No Sputum, No Wheezing, No Smoke Exposure, No Dyspnea Gastrointestinal : Complaining of nausea vomiting, diarrhea, complaining of diffuse abdominal pain and distention Genitourinary : no irregular bleeding, No Dysuria, No Urinary Frequency, No Hematuria, No Urinary Incontinence, No Urgency, No Flank Pain, No Urinary Flow Changes, No Hesitancy Musculoskeletal : No joint pain, No Myalgias, No Joint Swelling Skin : No Skin Lesions, No rash Neuro : No Weakness, No Numbness, No Paresthesias, No Loss of Consciousness, No Dizziness, No Headache Psych : No Anxiety/Panic, No Depression, No SI/HI/AH/VH, No Social Issues, Heme/Lymph: No Bruising, No Bleeding,No Lymphadenopathy Endocrine : No Polyuria, No Polydipsia, No Temperature Intolerance [facility] Past Medical History Medical History Ulcerative colitis Cervicalgia Migraine Anxiety Crohn's disease IBD (inflammatory bowel disease) Partial small bowel obstruction Surgical History History of colostomy reversal S/P colostomy History of surgery on arm Hx of colonoscopy History of esophagogastroduodenoscopy (EGD) Family History Family History Mother HTN (hypertension) Social History Social History Household Members: Spouse Housing: House Do you presently have visiting nurse or other home services: No Alcohol intake: never Patient Tobacco Use Status: Never used Tobacco Smoked in Last 30 Days: No Use of substances other than those prescribed or required for medical reasons: No Advance Directives: No Advance Directives Information Provided: Yes service: No Current occupational status: disabled Physical Exam ED Exam Exam: Appearance: Alert. Oriented X3. Uncomfortable Eyes: Pupils equal, round and reactive to light. ENT: Pharynx normal. Neck: Normal inspection. Neck supple. No lymph nodes noted. No crepitus CVS: Normal heart rate and rhythm. Pulses normal. Normal S1 and S2 Respiratory: No respiratory distress. Breath sounds normal. No Wheezing. No rales Abdomen: Soft distended, mildly rigid, pain to palpation in all quadrants Skin: Skin warm and dry. Normal skin color. Normal skin turgor. Extremities: No lower extremity edema. No Lacerations. No Rash Neuro: Oriented X 3. No motor deficit. No sensory deficit. Moving all extremities. No slurred speech. CN 2 through 12 grossly intact Psych: calm, cooperative, normal affect Vital Signs: Vital Signs - 24 hr 03/01/25 00:04 03/01/25 02:00 03/01/25 03:56 Temperature 97.8 F 98.4 F 97.8 F Pulse Rate 72 70 84 Respiratory Rate 20 18 20 Blood Pressure 116/71 126/82 138/78 Pulse Oximetry 98 99 99 Oxygen Delivery Method Room Air Room Air Room Air BMI result Body Mass Index 24.1 Course Course Course Narrative: Patient has a history of of ulcerative colitis, Crohn's disease, small bowel obstructions Patient complaining of abdominal pain. All of patient's labs and imaging are pending Patient receiving IV fluids, Phenergan, hydromorphone and Benadryl IV. Patient states that this combination is what helps him the most with the pain. Patient has multiple allergies to antiemetics and pain medications Medical Decision Making Medical Decision Making [facility] Narrative: My interpretation of labs: No significant abnormality in patient's hematology, normal white blood cell count, chemistry within normal limits, LFTs normal CT scan does not show any acute abnormality. After couple of doses of pain medication and nausea meds, patient states that he feels much better. I discussed with the patient that it is extremely important that he makes sure that he has good bowel movements. 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 Overall, patient feels ready to go home Patient states that he still has plenty of oxycodone sent home, only requesting nausea meds p.r.n.. Differential Diagnosis Differential Diagnoses: The differential diagnosis associated with the presentation includes (Small bowel obstruction, Crohn's flare functional abdominal pain) Admission/Observation Consideration of admission/observation: Escalation of care including admission/observation considered (Given patient's presentation and amount of meds that were required to get patient feeling better, observation and admission were considered.) Lab Data [facility] Lab Attestation statement: I reviewed the patient's lab results. 03/01/25 00:12 03/01/25 00:12 Labs: Lab Results 03/01/25 Range/Units 00:12 WBC 7.2 (4.8-10.8) X10*3/uL RBC 4.43 L (4.60-5.80) X10*6/uL Hgb 14.1 (14.0-18.0) g/dl Hct 40.8 L (42.0-52.0) % MCV 92.1 (80.0-98.0) fL MCH 31.8 (27.0-33.0) pg MCHC 34.6 (31.0-36.0) g/dl RDW 12.6 (11.0-16.0) % Plt Count 181 (160-400) X10*3/uL MPV 10.7 (9.4-12.4) fL Immature Gran % (Auto) 0.1 (0.0-0.4) % Neut % (Auto) 62.8 (45-73) % Lymph % (Auto) 29.0 (20-40) % Ocean % (Auto) 6.2 (2-11) % Eos % (Auto) 1.5 (0-4) % Baso % (Auto) 0.4 (0-2) % Lymph # (Auto) 2.1 (1.2-4.9) X10*3/uL Ocean # (Auto) 0.5 (0.1-1.2) X10*3/uL Eos # (Auto) 0.1 (0.0-0.4) X10*3/uL Baso # (Auto) 0.0 (0.0-0.2) X10*3/uL Abs Immat Gran (auto) 0.01 (0.00-0.03) X10*3/uL Absolute Neuts (auto) 4.5 (2.0-8.3) x10*3/uL Absolute Nucleated RBC 0.000 (0.0-0.012) X10*3/uL Nucleated RBC % (auto) 0.0 (0.0-0.2) /100WBC Sodium 143 (135-145) mmol/L Potassium 3.8 (3.3-5.1) mmol/L Chloride 107 (96-108) mmol/L Carbon Dioxide 27 (22-29) mmol/L Anion Gap 13 (12-20) BUN 12 (9-16) mg/dL Creatinine 0.71 (0.5-1.4) mg/dL Estim Creat Clear Calc 113.0 Estimated GFR > 60 Random Glucose 80 (60-115) mg/dL Calcium 9.2 (8.4-10.2) mg/dL Total Bilirubin 0.5 (0.0-1.0) mg/dL AST 33 (5-37) U/L ALT 37 (0-40) U/L Alkaline Phosphatase 78 (39-117) U/L Total Protein 7.5 (6.5-8.0) g/dL Albumin 4.3 (3.5-5.0) g/dL Medications Administered Discontinued Medications Generic Name Dose Route Start Last Admin Trade Name Freq PRN Reason Stop Dose Admin Diphenhydramine HCl 50 mg 03/01/25 02:35 03/01/25 03:02 Diphenhydramine Hcl 50 Mg/Ml Vial IVPUSH 03/01/25 02:36 50 mg ONCE ONE Administration Hydromorphone HCl 1 mg 03/01/25 02:34 03/01/25 03:02 Hydromorphone Hcl 1 Mg/Ml Syringe IVPUSH 03/01/25 02:35 1 mg ONCE ONE Administration Protocol Hydromorphone HCl 0.5 mg 03/01/25 04:31 03/01/25 04:42 Hydromorphone Hcl 0.5 Mg/0.5 Ml Syringe IVPUSH 03/01/25 04:32 0.5 mg ONCE ONE Administration Protocol Sodium Chloride 1,000 mls @ 999 mls/hr 03/01/25 02:34 03/01/25 04:24 Ns IVCONT 03/01/25 03:34 Infused .Q1H1M ONE Infusion Iohexol 85 ml 03/01/25 03:16 03/01/25 03:16 Iohexol 350 Mg/Ml 100 Ml Infus..Btl IV 03/01/25 03:17 85 ml ONCE ONE Administration Metoclopramide HCl 10 mg 03/01/25 02:34 03/01/25 03:02 Metoclopramide Hcl 10 Mg/2 Ml Vial IVPUSH 03/01/25 02:35 10 mg ONCE ONE Administration Critical Care Time Critical Care Time Critical Care Time: Yes Total Critical Care Time: 35 Attestation: I have personally provided critical care time. Time includes review of lab data, radiology results, discussion with consultants, and monitoring for potential decompensation. Intervention performed as documented. Discharge Plan Discharge Clinical Impression: Abdominal pain Patient Disposition: Home, Self-Care Instructions: Abdominal Pain (ED) Additional Instructions: Please follow-up with your primary care physician tomorrow. If you have any worsening or new symptoms, please return to the emergency room or call 911. Prescriptions: New metoclopramide HCl [Reglan] 5 mg tablet 5 mg PO Q8H PRN (Reason: nausea and vomiting) Qty: 14 0RF No Action clonazepam 1 mg tablet 1 tab PO BID PRN (Reason: Anxiety) omeprazole 20 mg capsule,delayed release(DR/EC) 20 mg PO DAILY@0630 zolpidem 10 mg tablet 1 tab PO BEDTIME loratadine 10 mg tablet 1 tab PO DAILY PRN (Reason: Allergy Symptoms) Humira(CF) Pen 40 mg/0.4 mL pen injector kit 40 mg subcut TH@0900 multivitamin with folic acid [Daily-Davis (with folic acid)] 400 mcg tablet 1 tab PO DAILY cyanocobalamin (vitamin B-12) 1,000 mcg/mL solution 1,000 mcg IM QMONTH ferrous gluconate 324 mg (38 mg iron) tablet 324 mg PO MOWEFR polyethylene glycol 3350 [Miralax] 17 gram/dose powder 17 g PO BID PRN (Reason: laxative effect) Qty: 510 0RF Relistor 150 mg tablet 450 mg PO DAILY Qty: 20 0RF Fleet Enema 19-7 gram/118 mL enema 197 ml MS DAILY 31 Days Qty: 133 2RF Stand Alone Forms: Work/School Release Print Language: Bulgarian
[2025-03-01] MEDS: iohexoL 350 MG/ML 100 ML INFUS..BTL 85 ML IV (03:16)
[2025-03-01 03:56] VITALS: BP 138/78; PULSE 84; RESP 20; TEMP 36.6; O2SAT 99
[2025-03-01 06:10] VITALS: BP 138/78; PULSE 84; RESP 20; TEMP 36.6; O2SAT 99
== END 2025-03-01 05:15 | disposition home or self-care (01) ==
PROVIDERS: Emergency Provider Emergency Medicine; PCP Student in an Organized Health Care Education/Training Program
DX: R10.9 Unspecified abdominal pain (principal); K58.9 Irritable bowel syndrome, unspecified; Z79.899 Other long term (current) drug therapy
CPT/HCPCS: 36415; 74177; 80053; 85025; 96361; 96374; 96375; 96376; 99284; J1171; J1200; J2765; Q9967

== ENCOUNTER → 2025-03-01 02:42 | Outpatient (BNV) | payer OTHER, SELFPAY | PROVIDERS: Emergency Provider Emergency Medicine; PCP Student in an Organized Health Care Education/Training Program; Visit Provider General Practice | DX: R10.9 Unspecified abdominal pain (principal) | CPT/HCPCS: 74177 ==

== ENCOUNTER 2025-04-25 00:35 | Emergency (ER) | payer OTHER, SELFPAY ==
--- NOTE | ~2025-04-25 | CT_ITS ---
CLINICAL HISTORY: abd pain hx crohns CT abdomen and pelvis with contrast Comparison: CT - CT ABDOMEN PELVIS W IV CON - 04/25/25 07:[address]/REG/SR - CT ABDOMEN PELVIS W IV CON - 03/01/25 03:16 EDT Findings: The lung bases are clear. Cholecystectomy. Liver and spleen are unremarkable. Splenic size is top normal at 13.1 cm. Pancreas and adrenal glands are unremarkable. Mild right-sided hydroureteronephrosis without ureteral or bladder stone identified. Nonobstructing punctate stones on the right. No bowel obstruction, pneumoperitoneum, or pneumatosis. Evidence of multiple prior bowel resections. No findings of obstruction. No significant inflammation appreciated. Thin walled bladder. Unremarkable prostate. No fluid collections or adenopathy. No vascular dilation. The bones are intact. IMPRESSION: Mild right-sided hydroureteronephrosis without discrete ureteral or bladder stone. There are nonobstructing punctate right-sided stones. Findings could be sequelae of a recently passed stone. Numerous prior bowel resections without evidence of obstruction or acute inflammation. This document has been electronically signed by: Gloria Watkins MD on 04/25/2025 09:08:03
[2025-04-25 00:53] VITALS: BP 110/68; PULSE 80; RESP 16; TEMP 36.6; O2SAT 96; BMI 24.1
[2025-04-25 01:17] LABS: MANUAL DIFF FLAG NO
[2025-04-25 01:18] LABS: Hematocrit 39.5 % (42.0-52.0); Hemoglobin 13.3 g/dl (14.0-18.0); Imm Gran Abs Auto 0.02 X10*3/uL (0.00-0.03); Imm Gran Pct Auto 0.2 % (0.0-0.4); Lymphocytes Absolute Auto 1.8 X10*3/uL (1.2-4.9); Mean Corpuscular HGB Conc 33.7 g/dl (31.0-36.0); Mean Corpuscular Hemoglobin 30.5 pg (27.0-33.0); Mean Corpuscular Volume 90.6 fL (80.0-98.0); NRBC Abs Auto 0.000 X10*3/uL (0.0-0.012); NRBC Pct Auto 0.0 /100WBC (0.0-0.2); Platelet Count 191 X10*3/uL (160-400); Red Blood Count 4.36 X10*6/uL (4.60-5.80); White Blood Count 8.3 X10*3/uL (4.8-10.8)
[2025-04-25 01:42] LABS: Alanine Aminotransferase 66 U/L (0-40); Albumin Level 4.1 g/dL (3.5-5.0); Alkaline Phosphatase 76 U/L (39-117); Anion Gap 14 (12-20); Aspartate Amino Transferase 39 U/L (5-37); Blood Urea Nitrogen 8 mg/dL (9-16); Calcium 9.0 mg/dL (8.4-10.2); Carbon Dioxide 28 mmol/L (22-29); Chloride 105 mmol/L (96-108); Creatinine Clr Calc Pharmacy 131.6; Estimated Glomerular Filt Rate > 60; Lipase 23 U/L (8-78); Magnesium 2.1 mg/dL (1.6-2.6); Potassium 3.8 mmol/L (3.3-5.1); Sodium 143 mmol/L (135-145); Total Protein 7.4 g/dL (6.5-8.0)
--- OUTSIDE RECORDS SUMMARY | 2025-04-25 04:19 | XMS_ITS | Data Portability ---
Author Organization [place], [email or web address] [facility] Address [address] [place] [address] Care Team Providers Care Vice President Global Digital Marketing Name Role Phone HIM CCA OTHER Unavailable OTHER Assessment Encounter Date Assessment Date Assessment LastModified by Organization Details LastModified Time 07/14/2024 07/14/2024 I have reviewed and agree with the assessment and plan as documented by the armed security professional. I provided real-time medical direction for this encounter and was immediately available to provide additional phone-based assistance as needed. 43M with hx of kidney stone, seen in ED two days ago, presenting with ongoing flank pain and nausea. No fever, no urinary symptoms. Reviewed results from recent visit, stone unchanged. O/E: well appearing, no fever. U/A negative. Likely ongoing stone pain, pt has follow up with Urology, will proceed with Toradol 15mg IM. Pt declines Zofran as states it gives him hives. Advised to monitor for worsening pain, fever, vomiting or new concerns. [email or web address] Not available 07/14/2024 15:45:48 12/22/2024 12/22/2024 As noted, we were called to see this patient regarding concerns of Cough. Evaluation in the field was performed by my armed security professional colleague, as noted above, I provided real-time direction and supervision for this visit. Patient has been having a nonproductive cough for the past week. The cough starts in the morning and usually subsides on its own throughout the day. He denies any fever or sore throat. Patient is also having back pain and leg pain for the past few weeks. He has been seen in the emergency department for this recently and is following up with his PCP as per medic. His PCP wanted us to evaluate him regarding his cough. Medic states the patient's lungs are clear to auscultation. He is well appearing. Presentation is most likely a viral illness. COVID and FLU are negative. I have recommended supportive care with hydration and [id number]-[id number] antitussive as needed. I recommended patient follow-up with his PCP. Impression: Cough Plan: Follow-up PCP Primary care, consider CXR Disposition: We discussed the diagnostic uncertainty of home visits and the risk associated with this. In this case, the patient and I felt this to be an acceptable and reasonable amount of risk given the benefit of avoiding an ED visit. We discussed the need to seek care urgently/emergen tly in the setting of any new or worsening serious symptoms, particularly Fever, chest pain, shortness of breath. [email or web address] Not available 12/22/2024 15:16:25 Plan of Treatment Reminders Order Date Submit Date Provider Last Modified By Organization Details Last Modified Time Details Appointments None recorded. Lab rapid SARS CoV 2 Ag, QL [place], respiratory specimen [address], [address] [place] [address], [address] [place] [address] 5 07:48:10 rapid flu (A+B) [address], [address] [place] [address] 5 07:48:11 urinalysis, dipstick [address], [address] [place] [address] 5 15:46:26 BMP, serum or plasma [address], [address] [place] [address] 4 22:02:45 Referral None recorded. Procedures None recorded. Surgeries None recorded. Imaging electrocard iogram [address], [address] [place] [address] 4 22:03:56 Medication Orders ketorolac 30 mg/mL injection solution 2024 025 [facility] #[id number], [address] [place], [address], 5 15:46:26 ondansetron HCl (PF) 4 mg/2 mL injection solution 2023 024 [email or web address] Not available 4 21:59:32 sodium chloride 0.9 % intravenous solution 2023 024 [email or web address] Not available 4 21:59:32 promethazin e 25 mg tablet 2023 024 [facility] #[id number], [address] [place], [address], 4 22:01:39 ondansetron HCl (PF) 4 mg/2 mL injection solution 2022 023 [email or web address] Not available 3 13:13:37 dimenhydrin ate 50 mg/mL injection solution 2022 023 Not available 3 13:13:29 Patient TargetsNo targets recorded. Patient InstructionsNo instructions recorded. Reason for Referral None Reported. Results Created Date Observation Date Name Description Value Unit Range Abnormal Flag Note LastModifiedBy Organization Detail LastModifiedTime 08/14/19 24 08/14/2023 BMP, serum or plasm a BUN 16 Not Available Main - Ins [address], [address] 08/14/2023 21:13:37 08/14/19 24 08/14/2023 BMP, serum or plasm a Ca 1.14 Not Available Main - [facility] [address], [address] 08/14/2023 21:13:37 08/14/19 24 08/14/2023 BMP, serum or plasm a CI- 105 Not Available Main - [facility] [address], [address] 08/14/2023 21:13:37 08/14/19 24 08/14/2023 BMP, serum or plasm a CRE 0.7 Not Available Main - [facility] [address], [address] 08/14/2023 21:13:37 08/14/19 24 08/14/2023 BMP, serum or plasm a GLU 76 Not Available Main - [facility] [address], [address] 08/14/2023 21:13:37 08/14/19 24 08/14/2023 BMP, serum or plasm a K+ 3.9 Not Available Main - [facility] [address], [address] [place] [address] 08/14/2023 21:13:37 08/14/19 24 08/14/2023 BMP, serum or plasm a Na+ 141 Not Available Main - [facility] [address], [address] [place] [address] 08/14/2023 21:13:37 08/14/19 24 08/14/2023 BMP, serum or plasm a tCO2 27 Not Available Main - Ins [address], [address] [place] [address] 08/14/2023 21:13:37 08/14/19 24 08/14/2023 elect cathy vincent am No observ ation record ed. [email or web address] Main - [address], [address] [place] [address] 08/14/2023 22:03:56 Result Notes None recorded. Medical Equipment None Reported. Allergies Allergen ID Allergen Name Allergen Category Reaction Reaction Severity Criticality Documentation Date Start Date Code Code System Note Provider Name and Address Organization Details Recorded Time 74447 Haldol medicatio n Not available Not available Not available 07/14/2024 96477 9 RxNorm Not Available [facility] 5 11:23:38 92166 meperidin e medicatio n Not available Not available Not available 07/14/2024 6754 RxNorm Not Available [facility] - [facility] 5 11:23:38 64178 metoclopr amide Not available Not available Not available Not available 07/14/2024 6915 RxNorm Not Available [facility] - production 5 11:23:38 98824 morphine medicatio n Not available Not available Not available 07/14/2024 7052 RxNorm Not Available [facility] - production 5 11:23:38 30334 Demerol medicatio n Not available Not available Not available 12/22/2024 31662 1 RxNorm Not Available [facility] - production 5 10:18:42 02932 prochlorp erazine medicatio n Not available Not available Not available 12/22/2024 8704 RxNorm Not Available [facility] - production 5 10:18:42 77143 Zofran medicatio n Not available Not available Not available 12/22/2024 62884 Rx[facility] Available [facility] 5 10:18:42 09816 trazodone medicatio n Not available Not available Not available 12/22/2024 08830 RxNorm Not Available [facility] - production 5 10:18:42 43411 Substance with sulfonami de structure and antibacte rial mechanism of action (substanc e) medicatio n Not available Not available Not available 12/22/2024 64558 8003 SNOMED Not Available [facility] - production 5 10:18:42 Medications Name Sig Start Date Stop Date Status Note LastModified by Organization Details LastModified Time Vitamin B-2 100 mg tablet TOME DOS TABLETAS POR V A ORAL DOS VECES AL D A active Not Available Not Available No t Available prednisone 10 mg tablet PLEASE SEE ATTACHED FOR DETAILED DIRECTIONS active Not Available Not Available N ot Available BD Luer-Alba Syringe 3 mL 25 x 5/8 USE TO INJECT VITAMIN B12 ONCE A MONTH active Not Available Not Available No t Available ofloxacin 0.3 % eye drops ADMINISTER 1 DROP INTO THE RIGHT EYE 4 TIMES DAILY FOR 7 DAYS. active Not Available Not Available No t Available tizanidine 4 mg tablet TOME MARISABEL Y MEDIA TABLETAS POR V A ORAL AL ACOSTARSE PARA EL ESPASMO MUSCULAR CUANDO SEA NECESARIO active Not Available Not Available No t Available sumatriptan 100 mg tablet PLEASE SEE ATTACHED FOR DETAILED DIRECTIONS active Not Available Not Available N ot Available promethazine 25 mg rectal suppository UNWRAP AND INSERT 1 SUPPOSITORY PER RECTUM EVERY 6 HOURS NEEDED FOR NAUSEA AND VOMITING active Not Available Not Available No t Available ondansetron HCl 4 mg tablet YINA 1 TABLET ORALLY EVERY 8 HOURS active Not Available Not Available No t Available prednisone 20 mg tablet TOME DANIEL TABLETAS ORALLY DAILY FOR 5 DAYS active Not Available Not Available No t Available clonazepam 1 mg tablet TAKE 1 TABLET (1 MG) BY MOUTH IF NEEDED IN THE MORNING AND AT BEDTIME FOR ANXIETY FOR UP TO 28 DAYS. active Not Available Not Available No t Available topiramate 25 mg tablet TOME MARISABEL O DOS TABLETAS POR V A ORAL TODOS LOS D active Not Available Not Available No t Available peg-electrol yte solution 420 gram oral solution TAKE ACCORDING TO INSTRUCTION S PROVIDED BY PHYSICIAN. active Not Available Not Available N ot Available tramadol 50 mg tablet TAKE 1 TABLET (50 MG) BY MOUTH EVERY 12 (TWELVE) HOURS IF NEEDED FOR SEVERE PAIN FOR UP TO 28 DAYS. active Not Available Not Available No t Available dimenhydrina te 50 mg/mL injection solution Take 25 mg by injection route. 2022 active Not Available Not Available Not Avai lable propranolol 10 mg tablet TOME MARISABEL TABLETA POR V A ORAL DOS VECES AL D A active Not Available Not Available No t Available amitriptylin e 25 mg tablet TAKE 2 TABLETS BY MOUTH AT BEDTIME active Not Available Not Available No t Available magnesium oxide 400 mg (241.3 mg magnesium) tablet TOME MARISABEL TABLETA TODOS LOS D AL ACOSTARSE active Not Available Not Available No t Available hydrocortiso ne 1 % topical cream APPLY TO AFFECTED AREA(S) TWICE A DAY active Not Available Not Available Not Available cephalexin 500 mg capsule TOME 1 C PSULA POR V A ORAL CUATRO VECES AL D A FOR 7 DAYS active Not Available Not Available No t Available cyanocobalam in (vit B-12) 1,000 mcg/mL injection solution INJECT 1 ML INTO THE SHOULDER, THIGH, OR BUTTOCKS EVERY 30 DAYS active Not Available Not Available No t Available syringe (disposable) 3 mL USE TO INJECT VITAMIN B12 ONCE A MONTH active Not Available Not Available No t Available promethazine 25 mg tablet Take 1 tablet every 6 hours by oral route as needed for 7 days. active Not Available Not Available Not Available hydrocortiso ne 100 mg/60 mL enema USE 60 ML RECTALLY DAILY FOR 2 WEEKS active Not Available Not Available No t Available oxycodone 5 mg capsule TOME 1 C PSULA POR V A ORAL 2 TIMES A DAY NEEDED FOR SEVERE PAIN active Not Available Not Available No t Available docusate sodium 100 mg capsule TAKE 1 CAPSULE BY MOUTH 2 TIMES A DAY NEEDED FOR CONSTIPATIO N active Not Available Not Available No t Available omeprazole 20 mg capsule,allan yed release TOME 2 C PSULAS POR V A ORAL TODOS LOS D active Not Available Not Available No t Available budesonide DR - ER 3 mg capsule,allan yed,extended release PLEASE SEE ATTACHED FOR DETAILED DIRECTIONS active Not Available Not Available N ot Available polyethylene glycol 3350 17 gram/dose oral powder MIX AND DRINK 17GM DAILY active Not Available Not Available No t Available zolpidem 10 mg tablet TAKE 1 TABLET BY MOUTH IF NEEDED AT BEDTIME FOR SLEEP FOR 28 DAYS active Not Available Not Available No t Available ferrous sulfate 325 mg (65 mg iron) tablet,delay ed release TAKE 1 TABLET BY MOUTH EVERY OTHER DAY active Not Available Not Available No t Available loratadine 10 mg tablet TOME MARISABEL TABLETA TODOS LOS D CUANDO SEA NECESARIO active Not Available Not Available No t Available oxycodone 5 mg tablet TAKE 1-2 TABLETS BY MOUTH EVERY 8 HOURS IF NEEDED FOR SEVERE PAIN. active Not Available Not Available No t Available hydrocortiso ne 1 % topical cream with perineal applicator APLIQUE AL AREA AFECTADA DOS VECES AL ROMINA active Not Available Not Available No t Available tinidazole 500 mg tablet TOME REGGIE TABLETA POR V A ORAL DOS VECES AL D A POR 2 SEMANAS active Not Available Not Available No t Available ferrous gluconate 324 mg (38 mg iron) tablet TAKE 1 TABLET EVERY WEDNESDAY, WEDNESDAY, AND WEDNESDAY WITH FOOD active Not Available Not Available No t Available ondansetron HCl (PF) 4 mg/2 mL injection solution Take 4 mg by injection route. 2023 active Not Available Not Available Not Avai lable oxycodone 10 mg tablet TOME MARISABEL TABLETA POR V A ORAL DANIEL VECES AL D A CUANDO SEA NECESARIO PARA EL DOLOR active Not Available Not Available No t Available naloxone 4 mg/actuation nasal spray ADMINISTER 1 SPRAY (4 MG) INTO AFFECTED NOSTRIL(S) IF NEEDED FOR OPIOID REVERSAL. active Not Available Not Available No t Available Humira(CF) Pen 40 mg/0.4 mL subcutaneous kit active Not Available Not Available Not Available Daily-Davis (with folic acid) 400 mcg tablet TOME MARISABEL TABLETA TODOS LOS D CON ALIMENTO active Not Available Not Available No t Available Flowflex COVID-19 Antigen Home Test kit USE DIRECTED active Not Available Not Available No t Available Vitals Date Recorded Heart rate Respiratory rate Oxygen saturation Oxygen saturation in Arterial blood by Pulse oximetry Body weight Body temperature Systolic And Diastolic Provider Name and Address Organization Details Last Updated DateTime 5 88 /min 16 /min 100 % 100 % 09564.8 8 g 97.8 [degF] 114/72 mm[Hg] Not Available [facility] - production 5 15:25:09 Date Recorded Respiratory rate Body temperature Heart rate Systolic And Diastolic Provider Name and Address Organization Details Last Updated DateTime 08/14/2023 18 /min 98.6 [degF] 80 /min 110/70 mm[Hg] Not Available [facility] - production 4 20:54:04 Date Recorded Body weight Respiratory rate Body temperature Body height Oxygen saturation Oxygen saturation in Arterial blood by Pulse oximetry Heart rate Systolic And Diastolic Provider Name and Address Organization Details Last Updated DateTime 4 36795.7 2 g 18 /min 98.8 [degF] 165.1 cm 98 % 98 % 72 /min 128/82 mm[Hg] Not Available [facility] 4 16:13:17 Date Recorded Respiratory rate Oxygen saturation Oxygen saturation in Arterial blood by Pulse oximetry Heart rate Body height Body temperature Body weight Systolic And Diastolic Provider Name and Address Organization Details Last Updated DateTime 5 19 /min 98 % 98 % 77 /min 162.56 cm 97.8 [degF] 57662.4 32 g 117/76 mm[Hg] Not Available [facility] [employer] [facility] [employer] 5 15:04:40 Date Recorded Respiratory rate Heart rate Body temperature Body weight Oxygen saturation Oxygen saturation in Arterial blood by Pulse oximetry Body temperature Heart rate Respiratory rate Body weight Oxygen saturation Oxygen saturation in Arterial blood by Pulse oximetry Provider Name and Address Organization Details Last Updated DateTime 3 18 /min 91 /min 97.8 [degF] 60906.7 6 g 97 % 97 % 97.8 [degF] 91 /min 18 /min 08753.7 6 g 97 % 97 % Not Available [facility] [employer] [facility] [employer] 3 12:38:32 Date Recorded Systolic And Diastolic Systolic And Diastolic Provider Name and Address Organization Details Last Updated DateTime 12/28/2022 98/66 mm[Hg] 98/66 mm[Hg] Not Available [facility] - production 12/28/2022 12:38:32 Social History None recorded. Functional Status None recorded. Mental Status None recorded. Family History Nothing Reported. Medical History No medical history recorded. Past Encounters Encounter ID Performer Location Encounter Start Date Encounter Closed Date Diagnosis/Indication Diagnosis SNOMED-CT Code Diagnosis ICD10 Code Diagnosis IMO Codes Diagnosis Note [id number] Kamaljit Chatman MD Main - [address] [address] 11/10/2021 20:46:30 03/13/2022 15:02:24 Nausea, vomiting and diarrhea 7138862 R11.2 [id number] Tarsha Calderon MD [facility] - [address] [address] 12/28/2022 11:39:14 12/31/2022 15:17:10 Viral upper respiratory tract infection 377529324 J06.9 42 year old male being evaluated for flu like symptoms since yesterday evening. Patient noted to have a fever of 102, took tylenol with relief. Has had a bit of a cough, without any other symptoms. No urinary symptoms, and BM loose but not different from baseline given IBD history. Some difficulty eating/dri nking due to some associated nausea every time he eats. Exam notable for BP 98/66, HR 91, afebrile with clear lungs. Presentati on overall suggestive of viral URI with reduced PO intake and borderline dehydratio n. IV fluid bolus 1L given, along with IV zofran/rashi adryl per patient request (reports history of zofran allergy previously alleviated with benadryl). Continue Tylenol prn, FU outpatient team if symptoms persist or worsen over the next few days. [id number] NGHIA DIAMOND MD Main - [address] [address] 08/14/2023 20:54:00 08/15/2023 13:34:39 Crohn's disease [id number] K50.90 Evaluation in the field was performed by my armed security professional colleague, as noted above, I provided real-time direction and supervisio n for this visit. The evaluation revealed a 42-year-ol d male with severe Crohn's disease currently on Humira (last weekly injection administer ed 2 days ago), experienci ng typically 2-3 flare-ups per month. His last steroid use was approximat pasha 7 months ago, with complains of ongoing symptoms of diarrhea, abdominal pain, and vomiting. Additional ly, he complains of palpitatio ns and a racing heart. He denies blood in the stool, dizziness, shortness of breath, and fever. Vital signs stable.The patient was presented with the option of presenting to the emergency department for further evaluation , including testing for C. difficile infection and possible treatment with solumedrol . However, the patient strongly prefers to avoid the emergency department and steroids due to exacerbati ng his anxiety. He reports passing gas. He is currently on opioids for pain management but has been unable to tolerate oral intake due to vomiting.B MP was done that showed : Na 141, K 3.9, Chl 105, Co2 27, Bun 16, Creat 0.7. ECG unremarkab le Impression :Crohn's flair with N/V diarrhea Plan:-Zofr an 4 mg IV-NS bolus 1 L-Rx fro phenergan 25 mg sent to his pharmacy-P t reports improvemen t after interventi on Primary care, consider__ _ Dispositio n: We discussed the diagnostic uncertaint y of home visits and the risk associated with this. In this case, the patient and I felt this to be an acceptable and reasonable amount of risk given the benefit of avoiding an ED visit. We discussed the need to seek care urgently/e mergently in the setting of any new or worsening serious symptoms, particular ly worsening abdominal pain, vomiting, inability to take any PO , CP, dizziness, blood in the stool or any other concerns. [id number] Tarsha Calderon MD Main - [facility] [address] [place] [phone] 10/15/2023 16:04:27 10/18/2023 13:00:13 COVID-19 [id number] U07.1 42 year old male being evaluated for symptoms related to COVID-19. Patient reports being diagnosed with COVID-19 5 days ago, with ongoing malaise, with body aches/chil ls and mild dyspnea. Patient started a course of paxlovid but discontinu ed after a few doses due to side effects. Exam notable for normal vital signs and clear lungs. POC COVID and flu negative. Presentati on consistent with uncomplica tamie COVID-19 without respirator y compromise , recommend supportive care with tylenol and cough suppressan ts prn, FU outpatient team if worsening symptoms. I have reviewed and agree with the assessment and plan as documented by the armed security professional. I provided real-time medical direction for this encounter and was immediatel y available to provide additional phone-base d assistance as needed. We discussed the diagnostic uncertaint y of home visits and associated risks. We discussed the need to seek care urgently/e mergently in the setting of any new or worsening symptoms. [id number] [facility] [address] [place] [phone] 07/14/2024 15:20:55 07/14/2024 22:04:31 Flank pain [id number] R10.9 [id number] Ramon Patino MD [facility] ED Medical [address] [address] 12/22/2024 15:04:38 12/25/2024 19:22:40 Cough 75291781 R05.9 [id number] Health Concerns Section Related Observation LastModified by Organization Detai ls LastModified Time None Recorded Concern Status LastModified by Organization Details LastModified Time None Recorded Advance Directives Directive None Recorded Payers Insurance Date Sequence Insurance Name Policy Number Policy Shearer Covered Member ID Shearer Member ID Guarantor Name 12/28/2022 1 [facility] - DOS PRIOR TO 2022 - DUAL ELIGIBLE (MEDICARE REPLACEMENT/ADV ANTAGE - HMO) Jony Lynn [id number] Jony Lynn 01/03/2025 1 [facility] - DOS ON OR AFTER 2022 - DUAL ELIGIBLE - [facility] OPTIONS AND ONE CARE (MEDICARE REPLACEMENT/ADV ANTAGE - HMO) Jony Lynn [id number] Jony Lynn Notes Date Note Type Note Provider Name and Address Organization Details Recorded Time 12/28/2022 text/html HPI: T/c to member, he c/o sob, chest pain, tightness, body aches, fever, 102, headache, and cough. Onset of sx's this morning. Reports he took tylenol around 5am for fever, with little effect. Temp went down to 100. Member does not want to go to ED. He is requesting INSTED visit. PHM: Insomnia, Colitis, Chronic pain, MDD, Crohn's, anxiety. .................... .................... .................... .................... .................... .................... .................... . [facility] Nursing Assessment: Comments: Review request no further information needed to process visit .................... .................... .................... .................... .................... .................... .................... . Nitro Man Note From Marc Dietrich: pt requesting visit for acute onset of cold/flu like symptoms. Pt states it started last night/early this morning. Pt is nauseous with vomiting, diarrhea, sob, body ache, fevers, headache . Pt took tylenol at about 5am this morning for a fever of 102 with mild relief. Vitals assessed. Pt's blood pressure is on the lower end of normal. Pt states he has not been able to keep down food or fluids. Lung sounds assessed, clear in all james. Flu and COVID testing performed, both negative. [facility] contacted, [facility] recommends 1L of normal saline and 4mg of iv Zofran, Pt states he has a reaction to zofran where he breaks out in uticaria and usually get benadryl before zofran, [facility] ordered 25mg of benadryl to be given IVP prior to 4mg of zofran IVP. 20g iv established in left ac, fluids hung. Benadryl and Zofran given IVP. Pt educated on s/s warranting a 911 call/trip to the hospital. Pt advised to keep taking tylenol for fevers and body aches and to increase his PO fluid intake. .................... .................... .................... .................... .................... .................... .................... . Disposition: Fulfilled Tarsha Calderon MD [address] [place] [address],[address], [place], [address], [facility] [employer] 12/28/2022 13:14:21 08/14/2023 text/html ROS as noted in the HPI HPI: mbr with complaints of diarrhea/nausea/vomi ting feeling weak/lightheaded and head ache. denies any CP/SOB. requesting [facility] visit. Protocol Used: Diarrhea Protocol-Based Disposition: Consider [facility], [facility] Community Clinician, or PCP visit within 24 hours Positive Triage Questions: * [1] MODERATE diarrhea (e.g., 4-6 times / day more than normal) AND [2] present > 48 hours (2 days) * Weak immune system (e.g., HIV positive, cancer chemo, splenectomy, organ transplant, chronic steroids) Negative Triage Questions: * Shock suspected (e.g., cold/pale/clammy skin, too weak to stand, low BP, rapid pulse) * Difficult to awaken or acting confused (e.g., disoriented, slurred speech) * [1] SEVERE diarrhea (e.g., 7 or more times / day more than normal) AND [2] present > 24 hours (1 day) * Fever > 101 F (38.3 C) * Abdominal pain (Exception: Pain clears with each passage of diarrhea stool.) .................... .................... .................... .................... .................... .................... .................... . CRC Nurse Triage Notes (Deyanira Mueller): Comments: CRC RN does not need additional information to process visit -Raymon HUMPHREYS .................... .................... .................... .................... .................... .................... .................... . Nitro Man Note From Maci Maurice: Community Nitro Man Chris Maurice CCA1 dispatched to a [facility] for a 42 yom C/O N/V/D/Crohn's flare. Upon arrival, the pt was ambulatory, DAI X4, obviously not feeling well. He appeared pale and anxious. He stated that he had on average 2 Crohn's flare ups a month, and that he also suffered from anxiety. He reported that he took humira weekly, and that he also took clonazepam PRN for anxiety, and oxycodone PRN for pain mgmt. He stated that he had been unable to take any of his meds for 24 hrs because he vomited everything he ingested, including water. He stated he had abd pain and distention. He reported that he was passing gas, and that he was having the same amount of diarrhea he had at baseline. He was also C/O a headache and chest discomfort, which he stated he thought was from his anxiety. He stated the last time he was given steroids was 7 months prior, and in his opinion he did not need steroids at that time. He denied dizziness, fever, cough, sore throat, SOB, or urinary S/S. [facility] consulted; #22 IV placed in his right forearm, BMP in insted. He was given 1L NS and 4 mg IV ondansetron. EKG in insted. After fluid and antiemetic, pt skin CTC improved and he appeared less anxious. He stated he felt less anxious, less nauseous, and overall felt better. Red flags discussed at length. .................... .................... .................... .................... .................... .................... .................... . 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 c/o chills/weakness/head ache/SOB/dizziness/d iarrhea/pain Denies significant PMH except Crohn's disease. Denies CKD Requesting a visit from [place] critical care unit manager then called back member to verify info, verified /address/consent being sent to phone .................... .................... .................... .................... .................... .................... .................... . Nitro Man Note From Alex Hutton: Headache/nausea/chil ls/fever Chief Complaints: Headache, URI, Syncope/Dizziness/Li ghtheadedness, Shortness of Breath/Dyspnea Pt reports s/s started Sunday 10/08 and have continued. PCP Rx Paxlovid on Wednesday but had to stop due to the complications on . He reports he was feeling worse and much more anxious. Pt c/o body aches, CHAVEZ, N/V/D, SOB, vertigo, chills and fever (99.9 two days ago and has continued). Pt does report joint pain. Pt reports slightly decreased appetite. Pt reports weight loss but due to UC, which he has had UC since 2017. Pt is on a diet for it, which he tries to follow, but not always. Pt denies CP, dysuria but reports Polyuria. After using the bathroom pt did c/o dysuria, urinalysis compete. Abd is soft non-tender, lungs are clear. No BLE edema noted. Pt has taken Tylenol today, 1g @11:30 for the CHAVEZ, which helped, but reports the CHAVEZ is returning. Pt does feel anxious. Allergies: Morphine, Demerol, Haldol, Compazine. SHAYY - noon, lunch. 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 MD consult Drinks lots of fluid, get lots of rest. Discussed red flags with pt. D/C Paxlovid (which he did), Tylenol as needed every 6 hours 1 g, do not exceed 4g/day. Last BM - 30 mins ago, diarrhea (normal for him due to UC), does reports some black, might indicate Hematochezia, he reports this is normal again, due to his UC. .................... .................... .................... .................... .................... .................... .................... . Disposition: Fulfilled Tarsha Calderon MD [address] [place] [address],[address], [place], [address], [employer] 10/15/2023 19:42:09 07/14/2024 text/html HPI: Patient with ongoing left flank pain diagnosed with kidney stones inpatient 06/19-. Urology to follow in August. Seen in ED after discharge. Pending med refill tomorrow. .................... .................... .................... .................... .................... .................... .................... . CRC Nurse Triage Notes (Pia Dangelo - RN): Chief Complaints: Urinary symptoms, Back pain PMH: Severe Persistent Mental Illness (SPMI) Comments: CRC RN did not require any additional information to process this visit. Nitro Man Organization Information for Scott Timmons [employer] Legal Name: [employer] Address: [address] [place] [address], [place] [address], Clerical Administrator: Froy Santoyo MD CLIA No.: [id number] Nitro Man POC Test Results from Scott Timmons [facility] Urine Dipstick (15:17:34) Urine leukocytes: NR Urine nitrites: NR Urine urobilinogen: 0.2 URO Urine protein: NR Urine pH: 5 pH Urine blood: NR Urine specific gravity: 1.020 SG Urine ketones: NR Urine bilirubin: NR Urine glucose: NR .................... .................... .................... .................... .................... .................... .................... . Nitro Man Note From Scott Timmons: Pt co left sided lower back pain with nausea. Pt has been seen in the ER on wed for same issue. CT scan shows no kidney stone movement, however pt did have some inflammation of bowels. Pt denies Diarrhea or blood or black stools or vomit. Cp SOB, Dizziness, headache or abdominal pain. Baseline vitals assessed, WNL, Afebrile, Urine dip unremarkable, urine clear and yellow in color, no pain on palpation. Pt able to ambulate appropriate. C Contacted and 15mg Toradol IM. Pt sts has allergy to zofran (hives). Pt advised if symptoms worsen to go back to the ER. Pt education on signs indicating the ER. .................... .................... .................... .................... .................... .................... .................... . [facility] Consulted: Mariama Raza .................... .................... .................... .................... .................... .................... .................... . Disposition: Josy Raza MD [address] [place] [address],[address], [place], [address], [employer] 07/14/2024 17:40:03 12/22/2024 text/html ROS as noted in the HPI HPI: Hx Chrons, colectomy, migraines. Patient in ED recently for back pain. Has had cold type symtoms now for one week duration. Will see [facility] Provider for ED follow up for back and leg pain. .................... .................... .................... .................... .................... .................... .................... . CRC Nurse Triage Notes (Gissel Magdaleno): Reason For Request: cough/ sore throat Chief Complaints: Cough, Sore Throat PMH: Severe Persistent Mental Illness (SPMI), Kidney Stones, Inflammatory Bowel Disease (Crohn's Disease, Ulcerative Colitis), Migraine PMH Reviewed at 12/22/2024 - 10:18 Allergies Reviewed at 12/22/2024 - 10:18 Comments: HPI reviewed Nitro Man Organization Information for [employer] Legal Name: [employer] [facility] [employer] Address: [address] [place] [address], [place] [address], Clerical Administrator: Froy CHIANG No.: [id number] Nitro Man POC Test Results from [employer] [employer] Rapid COVID antigen (15:05:53) COVID: - Attachments uploaded as part of this test result can be found under Documents section. Rapid influenza antigen (15:05:54) Flu: - Attachments uploaded as part of this test result can be found under Documents section. .................... .................... .................... .................... .................... .................... .................... . Nitro Man Note From Alia Mark: pt chief complaint today of cold/flu symptoms that have been occurring for approx 1 week prior to [facility] arrival at scene today. pt expresses he was seen at his local emergency department 2 weeks ago due to pain in his lower extremities. pt notes that the pain is still present. pt notes that after being sent home he began to feel very fatigued and not at his normal baseline. in the following days the pt began to feel as if he were sick with a productive cough that has greenish/ yellow mucus. pt now does have his cough usually last about 5-15 minutes in total with no mucus production. pt has no been using any otc medication to assist. pt today is looking to have a general assessment performed as well as possible treatment. [facility] called in via p pcp. pt denies any c, sob, nvd blurred vision. allergies noted non neural focal exam, afebrile, vitals wnl for the baseline of the pt. lungs present as clear bilaterally on auscultation, benign abdominal assessment. no lower extremity edema noted. poc covid/ flu test given with a negative result. P is caox4 with a gcs of 15. [facility] consulted pt is informed of findings. pt is told to follow up with his pcp and or [facility] staff as needed. all parties educated on red flag s&s and to call emergency services if any present. [facility] Lab Orders: rapid SARS CoV 2 Ag, QL IA, respiratory specimen: Performed rapid flu (A+B): Performed .................... .................... .................... .................... .................... .................... .................... . [facility] Consulted: Ramon Patino .................... .................... .................... .................... .................... .................... .................... . Disposition: Josy Patino MD [address] [facility],[address], [place], [address], JAM AMBRIZ 12/23/2024 07:48:14
[2025-04-25 06:46] VITALS: RESP 18
[2025-04-25] MEDS: Lactated Ringers 1,000 ML 999 ML IV (06:46)
[2025-04-25] MEDS: iohexoL 350 MG/ML 100 ML INFUS..BTL 85 ML IV (07:56)
[2025-04-25 08:39] VITALS: BP 111/75; PULSE 74; RESP 16; O2SAT 98
--- NOTE | 2025-04-25 08:59 | ED.NAVMDI ---
HPI - Nausea/Vomiting/Diarrhea General Chief complaint: Nausea/Vomiting/Diarrhea Stated complaint: General Medical Time Seen by Provider: 04/25/25 04:48 Source: patient Mode of arrival: ambulatory Limitations: no limitations History of Present Illness ED Provider: Dr. eusebia Stallworth HPI Narrative: 44-year-old male with a history of both ulcerative colitis and Crohn's disease presenting with 4 days of abdominal discomfort worsening over the last 24 hours. Pain is associated with vomiting and several episodes of bloody stools. No stool in the last 24 hours though. He has vomited multiple times. Unable to hold down his pain medications. Brings with him his bottle of oxycodone. Describes abdominal bloating and feels like he has a bowel obstruction which he has had previously. Has had multiple surgeries on his abdomen for his Crohn's disease including a total colectomy and colostomy with reversal. He denies associated fever. No urinary complaints. No known sick contacts or travel. No questionable food intake. Related Data Home Medications ?Medication ?Instructions ?Recorded ?Confirmed adalimumab 40 mg/0.4 mL 40 mg subcut TH@0900 08/19/21 06/19/24 subcutaneous pen kit (Humira(CF) Pen) clonazepam 1 mg tablet 1 tab PO BID PRN Anxiety 08/19/21 06/19/24 loratadine 10 mg tablet 1 tab PO DAILY PRN Allergy Symptoms 08/19/21 06/19/24 omeprazole 20 mg capsule,delayed 20 mg PO DAILY@0630 08/19/21 06/19/24 release zolpidem 10 mg tablet 1 tab PO BEDTIME 08/19/21 06/19/24 multivitamin with folic acid 400 1 tab PO DAILY 06/11/22 06/19/24 mcg tablet (Daily-Davis (with folic acid)) cyanocobalamin (vitamin B-12) 1,000 mcg IM QMONTH 06/19/24 06/19/24 1,000 mcg/mL injection solution ferrous gluconate 324 mg (38 mg 324 mg PO MOWEFR 06/19/24 06/19/24 iron) tablet Previous Rx's ?Medication ?Instructions ?Recorded methylnaltrexone 150 mg tablet 450 mg (3 x 150 mg) PO DAILY #20 10/16/24 (Relistor) tabs polyethylene glycol 3350 17 17 g PO BID PRN laxative effect 10/16/24 gram/dose oral powder (Miralax) #510 grams sodium phosphates 19 gram-7 197 ml IN DAILY 31 days #133 mL 10/16/24 gram/118 mL enema (Fleet Enema) metoclopramide HCl 5 mg tablet 5 mg PO Q8H PRN nausea and 03/01/25 (Reglan) vomiting #14 tabs Allergies Allergy/AdvReac Type Severity Reaction Status Date / Time ondansetron (Ondansetron) Allergy Mild HIVES Verified 04/25/25 00:57 Sulfa (Sulfonamide Allergy Mild UNKNOWN Verified 04/25/25 00:57 Antibiotics) ketorolac Allergy Unknown Unknown Verified 04/25/25 00:57 meperidine (Demerol) Allergy Unknown Unknown Verified 04/25/25 00:57 metoclopramide (Reglan) Allergy Unknown Unknown Verified 04/25/25 00:57 morphine (Morphine) Allergy Unknown RASH Verified 04/25/25 00:57 haloperidol (From Haldol) Allergy Anaphylaxis Verified 04/25/25 00:57 ketamine Allergy Unknown Verified 04/25/25 00:57 From REGLAN Allergy Mild PT UNSURE Uncoded 04/25/25 00:57 BUT STATES HE IS ALLERGIC Compro Allergy Unknown Unknown Uncoded 04/25/25 00:57 From COMPAZINE Allergy Unknown ITCHING Uncoded 04/25/25 00:57 From Demerol Allergy Unknown ITCHY HIVES Uncoded 04/25/25 00:57 From Toradol Allergy Unknown UNK Uncoded 04/25/25 00:57 Review of Systems Review of Systems: as per HPI, full review of systems performed and negative but for the above mentioned pertinent positives and negatives. [facility] Past Medical History Medical History Ulcerative colitis Cervicalgia Migraine Anxiety Crohn's disease IBD (inflammatory bowel disease) Partial small bowel obstruction Surgical History History of colostomy reversal S/P colostomy History of surgery on arm Hx of colonoscopy History of esophagogastroduodenoscopy (EGD) Family History Family History Mother HTN (hypertension) Social History Social History Household Members: Spouse Housing: House Do you presently have visiting nurse or other home services: No Alcohol intake: never Patient Tobacco Use Status: Never used Tobacco Smoked in Last 30 Days: No Use of substances other than those prescribed or required for medical reasons: No Advance Directives: No Advance Directives Information Provided: Yes Do you have a plan to hurt others: No Plan service: No Current occupational status: disabled Physical Exam Exam: Exam: GENERAL: Ill-Appearing, appears uncomfortable. SKIN: Normal skin color for ethnicity, warm, dry, no rashes noted. HEENT:? Normocephalic, atraumatic, no stridor, dry mucous membranes, dentition intact, EOMI. NECK: Soft, supple, full ROM, midline structures nontender, no step-offs, no deformities, no lymphadenopathy. CHEST: Heart regular tachycardia, no murmurs, symmetric chest rise and fall. PULMONARY: Clear to auscultation bilaterally, diminished at the bases, no labored breathing, no wheezes/rhales/rhonchi. ABDOMINAL: Softly distended, diffusely tender to palpation with voluntary guarding, positive bowel sounds in all quadrants. : Deferred. MUSCULOSKELETAL: Normal tone, full range of motion, no deformities, no peripheral edema. NEURO: Alert and oriented x3, CN II through XII intact, equal strength and sensation bilateral upper and lower extremities, no focal neurologic deficits.? PSYCHIATRIC: Flat affect, fluid speech, good eye contact and appropriate demeanor. Vital Signs: Vital Signs: Last Vital Signs Temp 97.9 F 04/25/25 00:53 Pulse 74 04/25/25 08:39 Resp 16 04/25/25 08:39 BP 111/75 04/25/25 08:39 Pulse Ox 98 04/25/25 08:39 O2 Del Method Room Air 04/25/25 08:39 BMI result Body Mass Index 24.1 Medications Administered Discontinued Medications Generic Name Dose Route Start Last Admin Trade Name Freq PRN Reason Stop Dose Admin Diphenhydramine HCl 50 mg 04/25/25 08:10 04/25/25 08:37 Diphenhydramine Hcl 50 Mg/Ml Vial IVPUSH 04/25/25 08:11 Not Given ONCE ONE Droperidol 1.25 mg 04/25/25 08:10 04/25/25 08:37 Droperidol 5 Mg/2 Ml Vial IVPUSH 04/25/25 08:11 Not Given ONCE ONE Hydromorphone HCl 1 mg 04/25/25 06:32 04/25/25 06:46 Hydromorphone Hcl 1 Mg/Ml Syringe IVPUSH 04/25/25 06:33 1 mg ONCE ONE Administration Protocol Hydromorphone HCl 1 mg 04/25/25 08:10 04/25/25 08:37 Hydromorphone Hcl 1 Mg/Ml Syringe IVPUSH 04/25/25 08:11 1 mg ONCE ONE Administration Protocol Lactated Ringer's 1,000 mls @ 999 mls/hr 04/25/25 06:32 04/25/25 07:44 Lr IV 04/25/25 07:32 Infused .Q1H1M ONE Infusion Iohexol 85 ml 04/25/25 07:55 04/25/25 07:56 Iohexol 350 Mg/Ml 100 Ml Infus..Btl IV 04/25/25 07:56 85 ml ONCE ONE Administration Promethazine HCl 12.5 mg 04/25/25 06:32 04/25/25 06:45 Promethazine Hcl 25 Mg/Ml Vial IM 04/25/25 06:33 12.5 mg ONCE ONE Administration Medical Decision Making Medical Decision Making [facility] Narrative: This patient presents today with a chief complaint of abdominal pain. Differential diagnosis for this patient is broad.? It includes appendicitis, cholecystitis, bowel obstruction, diverticulitis, peptic ulcer disease, pyelonephritis, vascular pathology, among many others.? A broad-based workup based on history and physical examination was obtained. ? Patient was given dilaudid for pain control. ? Differential Diagnosis Differential Diagnoses: The differential diagnosis associated with the presentation includes (As above) Admission/Observation Consideration of admission/observation: Escalation of care including admission/observation considered Lab Data [facility] Lab Attestation statement: I reviewed the patient's lab results. 04/25/25 01:09 04/25/25 01:09 Labs: Lab Results 04/25/25 Range/Units 01:09 WBC 8.3 (4.8-10.8) X10*3/uL RBC 4.36 L (4.60-5.80) X10*6/uL Hgb 13.3 L (14.0-18.0) g/dl Hct 39.5 L (42.0-52.0) % MCV 90.6 (80.0-98.0) fL MCH 30.5 (27.0-33.0) pg MCHC 33.7 (31.0-36.0) g/dl RDW 12.5 (11.0-16.0) % Plt Count 191 (160-400) X10*3/uL MPV 10.1 (9.4-12.4) fL Immature Gran % (Auto) 0.2 (0.0-0.4) % Neut % (Auto) 71.5 (45-73) % Lymph % (Auto) 21.5 (20-40) % Mcleod % (Auto) 6.0 (2-11) % Eos % (Auto) 0.4 (0-4) % Baso % (Auto) 0.4 (0-2) % Lymph # (Auto) 1.8 (1.2-4.9) X10*3/uL Mcleod # (Auto) 0.5 (0.1-1.2) X10*3/uL Eos # (Auto) 0.0 (0.0-0.4) X10*3/uL Baso # (Auto) 0.0 (0.0-0.2) X10*3/uL Abs Immat Gran (auto) 0.02 (0.00-0.03) X10*3/uL Absolute Neuts (auto) 6.0 (2.0-8.3) x10*3/uL Absolute Nucleated RBC 0.000 (0.0-0.012) X10*3/uL Nucleated RBC % (auto) 0.0 (0.0-0.2) /100WBC Sodium 143 (135-145) mmol/L Potassium 3.8 (3.3-5.1) mmol/L Chloride 105 (96-108) mmol/L Carbon Dioxide 28 (22-29) mmol/L Anion Gap 14 (12-20) BUN 8 L (9-16) mg/dL Creatinine 0.61 (0.5-1.4) mg/dL Estim Creat Clear Calc 131.6 Estimated GFR > 60 Random Glucose 109 (60-115) mg/dL Calcium 9.0 (8.4-10.2) mg/dL Magnesium 2.1 (1.6-2.6) mg/dL Total Bilirubin 0.8 (0.0-1.0) mg/dL AST 39 H (5-37) U/L ALT 66 H (0-40) U/L Alkaline Phosphatase 76 (39-117) U/L Total Protein 7.4 (6.5-8.0) g/dL Albumin 4.1 (3.5-5.0) g/dL Lipase 23 (8-78) U/L Radiology Impression Discussion of test interpretation with radiology: I have reviewed the radiologist's reading. Radiologist Impression: CT abdomen and pelvis with contrast Comparison: CT - CT ABDOMEN PELVIS W IV CON - 04/25/25 07:[address]/REG/SR - CT ABDOMEN PELVIS W IV CON - 03/01/25 03:16 EDT Findings: The lung bases are clear. Cholecystectomy. Liver and spleen are unremarkable. Splenic size is top normal at 13.1 cm. Pancreas and adrenal glands are unremarkable. Mild right-sided hydroureteronephrosis without ureteral or bladder stone identified. Nonobstructing punctate stones on the right. No bowel obstruction, pneumoperitoneum, or pneumatosis. Evidence of multiple prior bowel resections. No findings of obstruction. No significant inflammation appreciated. Thin walled bladder. Unremarkable prostate. No fluid collections or adenopathy. No vascular dilation. The bones are intact. IMPRESSION: Mild right-sided hydroureteronephrosis without discrete ureteral or bladder stone. There are nonobstructing punctate right-sided stones. Findings could be sequelae of a recently passed stone. Numerous prior bowel resections without evidence of obstruction or acute inflammation. This document has been electronically signed by: Gloria Watkins MD on 04/25/2025 09:08:03 External Record Review External record reviewed: Inpatient record and Outpatient record Prescription Management I considered prescription management with: Pain Medication and Other (Antiemetics) Chronic Conditions Patient?s care impacted by: Other (Crohn's disease, ulcerative colitis) Discharge Plan Discharge Clinical Impression: Acute exacerbation of chronic abdominal pain Patient Disposition: Home, Self-Care Additional Instructions: Your right ureter is slightly inflamed which indicates that you may have passed a kidney stone recently. This could be the cause of your pain. Try to keep hydrated over the next several days. Drink plenty of fluid. Use your oxycodone as needed for pain. Use Phenergan as needed for nausea. Return to the emergency department with any new or worsening symptoms including: Worsening abdominal pain despite medication, fevers greater than 100?, inability to tolerate your medications, any new symptom that concerns you. Call 911 with any medical emergency. Prescriptions: No Action clonazepam 1 mg tablet 1 tab PO BID PRN (Reason: Anxiety) omeprazole 20 mg capsule,delayed release(DR/EC) 20 mg PO DAILY@0630 zolpidem 10 mg tablet 1 tab PO BEDTIME loratadine 10 mg tablet 1 tab PO DAILY PRN (Reason: Allergy Symptoms) Humira(CF) Pen 40 mg/0.4 mL pen injector kit 40 mg subcut TH@0900 multivitamin with folic acid [Daily-Davis (with folic acid)] 400 mcg tablet 1 tab PO DAILY cyanocobalamin (vitamin B-12) 1,000 mcg/mL solution 1,000 mcg IM QMONTH ferrous gluconate 324 mg (38 mg iron) tablet 324 mg PO MOWEFR polyethylene glycol 3350 [Miralax] 17 gram/dose powder 17 g PO BID PRN (Reason: laxative effect) Qty: 510 0RF Relistor 150 mg tablet 450 mg PO DAILY Qty: 20 0RF Fleet Enema 19-7 gram/118 mL enema 197 ml IN DAILY 31 Days Qty: 133 2RF metoclopramide HCl [Reglan] 5 mg tablet 5 mg PO Q8H PRN (Reason: nausea and vomiting) Qty: 14 0RF Print Language: Barbadian
[2025-04-25 09:37] VITALS: BP 111/75; PULSE 74; RESP 16; TEMP 36.8; O2SAT 98
== END 2025-04-25 09:38 | disposition home or self-care (01) ==
PROVIDERS: Emergency Provider Emergency Medicine; PCP Student in an Organized Health Care Education/Training Program
DX: R10.9 Unspecified abdominal pain (principal); G89.29 Other chronic pain; R11.2 Nausea with vomiting, unspecified; R19.7 Diarrhea, unspecified; K50.90 Crohn's disease, unspecified, without complications
CPT/HCPCS: 36415; 74177; 80053; 83690; 83735; 85025; 96361; 96372; 96374; 96376; 99284; 99285; J1171; J2550; J7120; Q9967

== ENCOUNTER → 2025-04-25 06:32 | Outpatient (BNV) | payer OTHER, SELFPAY | PROVIDERS: Emergency Provider Emergency Medicine; PCP Student in an Organized Health Care Education/Training Program; Visit Provider Radiology Diagnostic Radiology | DX: N13.2 Hydronephrosis with renal and ureteral calculous obstruction (principal) | CPT/HCPCS: 74177 ==

== ENCOUNTER 2025-06-23 00:52 | Emergency (ER) | payer OTHER, SELFPAY ==
--- NOTE | ~2025-06-23 | CT_ITS ---
CLINICAL HISTORY: LLQ pain, hx chrons and resections CT abdomen and pelvis with contrast Comparison: CT/SR - CT ABDOMEN PELVIS W IV CON - 04/25/25 07:47 EDT Findings: The lung bases are clear. The liver, spleen, pancreas, Bilateral kidneys and bilateral adrenal glands without acute abnormality or abnormal enhancement. The spleen is borderline prominent, unchanged. Gallbladder surgically absent. The stomach and bowel loops are not dilated. There are no focal colonic lesions or pneumatosis. There are signs of prior partial bowel resection. Appendix is not seen, likely surgically absent. No pericecal inflammatory changes. No free fluid, collections or free air. No aortic dissection or aneurysm. No lymphadenopathy. The bladder is normal. There is no acute soft tissue or skeletal abnormality in the abdomen or pelvis. IMPRESSION: No acute findings. Mild splenomegaly. This document has been electronically signed by: Herber Bowen MD on 06/23/2025 03:56:23
[2025-06-23 00:56] VITALS: BP 105/65; PULSE 70; RESP 20; TEMP 36.6; O2SAT 97; BMI 24.1
--- OUTSIDE RECORDS SUMMARY | 2025-06-23 01:07 | XMS_ITS | Encounter Summary ---
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 Name Role Phone Daina Pichardo MD Primary Care Pro vider Reason for Visit * Reason Onset Date Comments Med Refill 06/14/2023 Encounter Details Date Type Department Care Team (Late st Contact Info) Description 06/14/2023 Refill [facility] [address] [place] [address] Zarina Alarcon MD [address] [place] [address] Anxiety Social History Tobacco Use Types Packs/Day [...] Care Team (Late st Contact Info) Description 07/04/2025 9:00 AM EST Clinical Support [facility] [address] [place] [address] Hanna Mark, RN [address] [place] [address] 09/06/2025 9:30 AM EST Office Visit [facility] [address] [place] [address] Daina Pichardo MD [address] [place] [phone] documented as of this encounter Visit Diagnoses Diagnosis Anxiety Anxiety state, unspecified documented in this encounter Additional Health Concerns Assessment Noted Time PHQ-9 Depression Total Score: 3 02/16/20 10:56 AM EDT documented as of this encounter Care Teams Poultry Slaughterer Relationship Specialty Start Date End Date Daina Pichardo MD [address] [place] [phone] PCP - General Internal Medicine 12/16/22 documented as of this encounter
--- OUTSIDE RECORDS SUMMARY | 2025-06-23 01:07 | XMS_ITS | Clinical Summary ---
Author Organization [employer] Address [address] [place] [address] 7 [place] [address] Care Team Providers Care Manager Of Product Name Role Phone Daina Pichardo MD Primary [...] daily Active ergocalciferol (Vitamin D-2) 1.25 MG (71480 UT) capsule Take 50,000 Units by mouth 1 (one) time per week. 01/22/20 Active Syringe/Needle, Disp, 25G X 5/8 3 ML misc USE TO INJECT VITAMIN B12 ONCE A MONTH 12 each 3 02/11/20 Active naloxone (Narcan) 4 mg/0.1 mL nasal spray Administer 1 spray (4 mg) into affected nostril(s) if needed for opioid reversal or respiratory depression. 2 each 1 09/06/19 Active loratadine (Claritin) 10 MG tablet TAKE 1 TABLET BY MOUTH EVERY DAY 90 tablet 1 12/30/19 Active cyanocobalamin (Vitamin B-12) 1000 MCG/ML injectionIndica tions:Crohn's disease of small intestine with complication (HCC),Ileal pouchitis (CMS/HCC) (HCC) INJECT 1 ML INTO THE SHOULDER, THIGH, OR BUTTOCKS EVERY 30 DAYS 3 mL 3 02/02/20 Active omeprazole (PriLOSEC) [address] capsule TAKE 1 CAPSULE BY MOUTH BEFORE BREAKFAST. DO NOT CRUSH OR CHEW. 90 capsule 04/03/20 Active ferrous gluconate (Fergon) 324 (38 Fe) MG tabletIndicatio ns:Crohn's disease of small intestine with complication (HCC),Ileal pouchitis (CMS/HCC) (HCC) Take 1 tablet (324 mg) by mouth 2 (two) times a week. Twice a week 8 tablet 2 04/05/20 25 2025 Active oxyCODONE (Roxicodone) 5 MG immediate release tabletIndicatio ns:Pain Take 2 tablets (10 mg) by mouth every 8 (eight) hours if needed for severe pain for up to 27 days. Take 1-2 tablets (5-10 mg) by mouth every 8 (eight) hours if needed for severe pain for up to 27 days. Do not start before May 29, 2025. 160 tablet 05/29/20 25 2024 Active hydrocortisone 1 % creamIndication s:Ileal pouchitis (CMS/HCC) (HCC),Health care maintenance APPLY TO THE AFFECTED AREA(S) TWICE A DAY 56.8 g 1 05/29/20 25 Active zolpidem (Ambien) 10 MG tabletIndicatio ns:Insomnia, unspecified type Take 1 tablet (10 mg) by mouth if needed at bedtime for sleep. TAKE 1 TABLET BY MOUTH IF NEEDED AT BEDTIME FOR SLEEP X 28 DAYS Do not start before June 04, 2025. 28 tablet 06/04/20 25 Active clonazePAM (KlonoPIN) 1 MG tabletIndicatio ns:Anxiety Take 1 tablet (1 mg) by mouth Once per day. Do not start before June 09, 2025. 28 tablet 06/09/20 25 Active hydrocortisone 1 % creamIndication s:Ileal pouchitis (CMS/HCC) ([facility]),Health care maintenance [facility] AFECTADA DOS VECES AL ROMINA 56 g 1 02/15/20 25 2024 Discontinued oxyCODONE (Roxicodone) 5 MG immediate release tabletIndicatio ns:Pain Take 2 tablets (10 mg) by mouth every 8 (eight) hours if needed for severe pain for up to 27 days. Take 1-2 tablets (5-10 mg) by mouth every 8 (eight) hours if needed for severe pain for up to 27 days. Do not start before May 03, 2025. 160 tablet 05/03/20 25 2024 Discontinued(R eorder (will not trigger notification to Pharmacy)) zolpidem (Ambien) 10 MG tabletIndicatio ns:Insomnia, unspecified type TAKE 1 TABLET BY MOUTH IF NEEDED AT BEDTIME FOR SLEEP X 28 DAYS 28 tablet 05/08/20 25 2024 Discontinued(R eorder (will not trigger notification to Pharmacy)) clonazePAM (KlonoPIN) 1 MG tabletIndicatio ns:Anxiety Take 1 tablet (1 mg) by mouth Once per day. 28 tablet 05/11/20 25 2024 Discontinued(R eorder (will not trigger notification to Pharmacy)) Active Problems Problem Noted Date Diagnosed Date Hordeolum externum of left upper eyelid 04/03/20 25 Long-term current use of opiate analgesic 2024 Long-term current use of benzodiazepine 03/08/20 25 Chronic, continuous use of opioids 10/31/2024 Hyperlipidemia [...] and ileoanal J-pouch anastomosis in 2006 at [facility]. IBD Complications: Recurrent small bowel obstructions of [...] and then presented to the hospital at [facility]. He therefore missed his colonoscopy. Patient's [...] Encounters Date Type Department Care Team Description 06/23/2025 Refill [facility] [address] [place] [address] Zarina Alarcon MD Pain 06/21/2025 Refill [facility] [address] [place] [address] Zarina Alarcon MD Pain 06/12/2025 Telephone [facility] [address] [place] [address] Hanna Mark RN 06/12/2025 Telephone [facility] [address] [place] [address] Daina Pichardo MD 06/05/2025 Refill [facility] [address] [place] [address] Daina Pichardo MD Anxiety 05/31/2025 Refill [facility] [address] [place] [address] Jaguar Brown MD Insomnia, unspecified type 05/28/2025 Refill [facility] [address] [place] [address] Daina Pichardo MD Ileal pouchitis ([facility]) ([facility]); Health care maintenance 05/28/2025 Refill [facility] [address] [place] [address] Daina Pichardo MD Pain 05/15/2025 9:00 AM EST Clinical Support [facility] [address] [place] [address] Hanna Mark, JULIANN Back pain, unspecified back location, unspecified back pain laterality, unspecified chronicity 05/15/2025 Telephone [facility] [address] [place] [address] Hanna Mark RN 05/15/2025 Travel 05/11/2025 Refill [facility] [address] [place] [address] Daina Pichardo MD Anxiety 05/08/2025 Orders Only [facility] [address] [place] [address] ProviderReal MD 05/07/2025 Refill [facility] [address] [place] [address] Daina Pichardo MD Insomnia, unspecified type 05/02/2025 Refill [facility] [address] [place] [address] Daina Pichardo MD Pain 04/29/2025 Travel 04/25/2025 Orders Only GENERIC EXTERNAL DATA DEPARTMENT Provider, Generic External Data 04/18/2025 Telephone [facility] [address] [place] [address] Daina Pichardo MD tele appt 04/18/2025 Travel 04/18/2025 Telephone [facility] [address] [place] [phone] Daina Pichardo MD Nurse Triage 04/12/2025 9:00 AM EDT Clinical Support [facility] [address] [place] [address] Hanna Mark, JULIANN Back pain, unspecified back location, unspecified back pain laterality, unspecified chronicity (Primary Dx) 04/12/2025 Telephone [facility] [address] [place] [address] Hanna Mark RN 04/12/2025 Travel 04/11/2025 Refill [facility] [address] [place] [phone] Daina Pichardo MD Anxiety 04/11/2025 Refill [facility] [address] [place] [address] Daina Pichardo MD Anxiety 04/09/2025 Refill [facility] [address] [place] [address] Daina Pichardo MD Insomnia, unspecified type 04/06/2025 Refill [facility] [address] [place] [address] Daina Pichardo MD Insomnia, unspecified type 04/05/2025 Refill [facility] [address] [place] [address] Hanna Mark RN Pain 04/05/2025 Travel 04/05/2025 Telephone [facility] [address] [place] [address] Daina Pichardo MD 04/05/2025 Telephone [facility] [address] [place] [phone] Daina Pichardo MD triage 04/04/2025 Refill [facility] [address] [place] [address] Daina Pichardo MD Pain 04/04/2025 Refill [facility] [address] [place] [address] Zarina Alarcon MD 04/03/2025 9:45 AM EDT Office Visit [facility] [address] [place] [phone] Daina Pichardo MD Irritable bowel syndrome, unspecified type (Primary Dx); Crohn's disease of small intestine with complication (CMS/HCC); Ileal pouchitis (CMS/HCC); Diarrhea, unspecified type; Encounter for immunization; Health care maintenance; Hordeolum of left upper eyelid, unspecified hordeolum type; Hordeolum externum of left upper eyelid 04/03/2025 Travel 04/02/2025 Travel 04/02/2025 Telephone [facility] [address] [place] [phone] Daina Pichardo MD chart prep 03/27/2025 Patient Outreach [facility] [address] [place] [phone] Daina Pichardo MD Pre-visit Planning ([facility] screening is completed) 03/27/2025 Travel from Last 3 Months Immunizations Immunization Administration Dates Next Due DT (pediatric) 11/10/2010 Hep A, Adult 02/23/2022 Hep B, Adolescent or Pediatric 11/02/2001,2000 Hep B, adult 12/21/2023, 3,04/13/2023,02/23 HepB-CpG 04/03/2025 Influenza Injectable Quadriv alant Preservative Free IIV4 MDCK 03/24/2022 Influenza injectable quadriv alent preservative free 02/24/2023,03/18/2021,03/19/2020,03/05,04/06/2018,03/31/2017,03/13/2016 Influenza, IIV3, injectable 10/22/2010 Influenza, Injectable, MDCK, preservative free 02/18/2025 Influenza, Split (incl. snehal fied surface antigen) 08/02/2012 Influenza, seasonal, injecta ble, preservative free 03/03/2024 Pneumococcal Conjugate PCV 13 01/11/2018 Pneumococcal Conjugate PCV 20 04/03/2025 Pneumococcal Polysaccharide PPSV23 04/04,01/21/2013,05/11/2012,12/16 TD (adult), 2 [...] your housing situation today? I have balwinder mildred 10/23/[address] you li [...] Sign Reading Time Taken Comments Blood Pressure 98/70 04/03/2025 9:55 AM EDT Pulse 78 04/03/2025 9:48 AM EDT Temperature 36.1 C (96.9 F) 04/03/2025 9:48 AM EDT Respiratory Rate 20 04/03/2025 9:48 AM EDT Oxygen Saturation 99% 04/03/2025 9:48 AM EDT Inhaled Oxygen Concentration - - Weight 64.9 kg (143 lb) 04/03/2025 9:48 AM EDT Height 165.1 cm (5' 5 ) 04/03/2025 9:48 AM EDT Body Mass Index 23.8 04/03/2025 9:48 AM EDT Plan of Treatment Upcoming Encounters Date Type Department Care Team ([facility] st Contact Info) Description 07/04/2025 9:00 AM EST Clinical Support [facility] [address] [facility] [place] [address] Hanna Mark, JULIANN [address] [place] [address] 09/06/2025 9:30 AM EST Office Visit [facility] [address] [place], [place] [phone] Daina Pichardo MD [address] [place], [place] [phone] Health Maintenance Due Date Last Done Comments Family Planning (PISQ) 1993 COVID-19 Vaccine ( season) 2025 07/07/2021, 12/28/2020, 11/30/2020 Depression Screening 10/31/2025 10/31/2024, 11/01/19 25 Disability Screening 10/31/2025 10/31/2024 SDOH Screening 10/31/2025 10/31/2024 Alcohol/Substance Use Screening 04/03/2026 04/03/2025 Tobacco Screening 04/03/2026 04/03/2025 DTaP/Tdap/Td Vaccines (3 - Td or Tdap) 01/12/2028 01/11/2018, 05/11/2012, 11/10/2010, Additional history exists Zoster Vaccines (2 of 2) 2028 04/03/2025 Lipid Panel 02/05/2030 02/05/2025, 12/10, 03/25/2023 RSV Patients and Patients Aged 60 years or older (1 - 1-dose 75+ series) 2053 Hepatitis A Vaccines Aged Out 02/23/2022 No long er eligible based on patient's age to complete this topic HIV Screening Completed 02/05/2025, 03/25/2023 Hepatitis C Screening Completed 02/05/2025, 023 Influenza Vaccine Completed 02/18/2025, , 02/24/2023, Additional history exists Hepatitis B Vaccines Completed 04/03/2025, 12/21/2023, 06/11/2023, Additional history exists Pneumococcal Vaccine: Pediatrics (0 to 5 Years) and At-Risk Patients (6 to 49) Years Aged Out 04/03/2025, 04/04/2018, 01/11/2018, Additional history exists No longer eligible based on patient's age to complete this topic HIB Vaccines Aged Out No longer eligi [...] Comments POCT JUVE-14 URINE DRUG SCREEN Routine 05/15/2025 9:20 AM EST Back pain, unspecified back location, unspecified back pain laterality, unspecified chronicity EGD Routine 05/08/2025 1:[address] ABDOMEN PELVIS W CONTRAST Routine 04/25/2025 9:08 AM EDT LIPASE Routine 04/25/2025 1:09 AM EDT MAGNESIUM Routine 04/25/2025 1:09 AM EDT COMPREHENSIVE METABOLIC PANEL Routine 04/25/2025 1:09 AM EDT CBC WITH AUTO DIFFERENTIAL Routine 04/25/2025 1:09 AM EDT POCT JUVE-14 URINE DRUG SCREEN Routine 04/12/2025 9:26 AM EDT Back pain, unspecified back location, unspecified back pain laterality, unspecified chronicity AMB REFERRAL TO OPHTHALMOLOGY STAT 04/09/2025 Hordeolum of left upper eyelid, unspecified hordeolum type HEPATITIS C AB W/REFL TO HCV RNA, QN, PCR Routine 02/05/2025 9:07 AM EDT Health care maintenance HIV 1/2 ANTIGEN/ANTIBODY, FOURTH GENERATION W/RFL Routine 02/05/2025 9:07 AM EDT Health care maintenance LIPID PANEL, STANDARD Routine 02/05/2025 9:07 AM EDT Health care maintenance from Last 3 Months or Most Recently Relevant to Health Maintenance Results * (ABNORMAL) POCT JUVE-14 Urine Drug Screen (05/15/2025 9:20 AM EST) Only the most recent of2 resultswithin the time period is included. THC Negative Negative Cocaine Screen, Urine Negative [...] obtained by clean catch procedure / Unknown 05/15/2025 9:20 AM EST Narrative Hanna Mark RN - 05/15/2025 9:20 AM EST . Internal Pass Control Lot# [id number] Exp: 05-11-26 Daina Quinn MD POINT OF CARE BEATRIZ T ENTER/EDIT ORDERABLES Final Result * EGD (05/08/2025 1:50 PM EDT) Anatomical Region Laterality Modality Endoscopy us Historical Provider ENDOSCOPY PROCEDURE ORDER EUGENE Final Result * CT Abdomen Pelvis w/ Contrast (04/25/2025 9:08 AM EDT) Anatomical Region Laterality Modality Body, Pelvis, Abdomen Computed T omography 04/25/2025 9:08 AM EDT Narrative 04/25/2025 9:09 AM EDT [address] [address] [address] Scan Report Signed Patient: Jony Julio MR# : [id number] : 1980 Acct:[id number] Age/Sex: 44 / M ADM Date: 04/25/25 Loc: HO.ED Attending Dr: Ordering Physician: Santa Stallworth DO Date of Service: 04/25/25 Procedure(s): CT abdomen pelvis w IV con Accession Number(s): [id number] cc: Santa Stallworth DO; Daina Pichardo MD Report Number: [id number]: Total DLP = 0.00 mGy-cm Reason for Exam: abd pain hx crohns CLINICAL HISTORY: abd pain hx crohns CT abdomen and pelvis with contrast Comparison: CT - CT ABDOMEN PELVIS W IV CON - 04/25/25 07:[address]/REG/SR - CT ABDOMEN PELVIS W IV CON - 03/01/25 03:16 EDT Findings: The lung bases are clear. Cholecystectomy. Liver and spleen are unremarkable. Splenic size is top normal at 13.1 cm. Pancreas and adrenal glands are unremarkable. Mild right-sided hydroureteronephrosis without ureteral or bladder stone identified. Nonobstructing punctate stones on the right. No bowel obstruction, pneumoperitoneum, or pneumatosis. Evidence of multiple prior bowel resections. No findings of obstruction. No significant inflammation appreciated. Thin walled bladder. Unremarkable prostate. No fluid collections or adenopathy. No vascular dilation. The bones are intact. IMPRESSION: Mild right-sided hydroureteronephrosis without discrete ureteral or bladder stone. There are nonobstructing punctate right-sided stones. Findings could be sequelae of a recently passed stone. Numerous prior bowel resections without evidence of obstruction or acute inflammation. This document has been electronically signed by: Gloria Watkins MD on 04/25/2025 09:08:03 Dictated By: Gloria Watkins MD Signed By: <Electronically signed by Gloria Watkins MD in OV> 04/25/25907 DD/ 7 TD/TT: 04/25/25907 Educational Technician: Procedure Note Donotuseinterpreter, Image - 04/25/[address] [place] [address] [address] Scan Report Signed Patient: Jony Julio [facility]# : [id number] : 1980Acct:[id number] Age/Sex: 44 / MADM Date: 04/25/25 Loc: HO.ED Attending Dr: Ordering Physician: Santa Stallworth DO Date of Service: 04/25/25 Procedure(s): CT abdomen pelvis w IV con Accession Number(s): [id number] cc: Santa Stallworth DO; Daina Pichardo MD Report Number: [id number]: Total DLP = 0.00 mGy-cm Reason for Exam: abd pain hx crohns CLINICAL HISTORY: abd pain hx crohns CT abdomen and pelvis with contrast Comparison: CT - CT ABDOMEN PELVIS W IV CON - 04/25/25 07:[address]/REG/SR - CT ABDOMEN PELVIS W IV CON - 03/01/25 03:16 EDT Findings: The lung bases are clear. Cholecystectomy. Liver and spleen are unremarkable. Splenic size is top normal at 13.1 cm. Pancreas and adrenal glands are unremarkable. Mild right-sided hydroureteronephrosis without ureteral or bladder stone identified. Nonobstructing punctate stones on the right. No bowel obstruction, pneumoperitoneum, or pneumatosis. Evidence of multiple prior bowel resections. No findings of obstruction. No significant inflammation appreciated. Thin walled bladder. Unremarkable prostate. No fluid collections or adenopathy. No vascular dilation. The bones are intact. IMPRESSION: Mild right-sided hydroureteronephrosis without discrete ureteral or bladder stone. There are nonobstructing punctate right-sided stones. Findings could be sequelae of a recently passed stone. Numerous prior bowel resections without evidence of obstruction or acute inflammation. This document has been electronically signed by: Gloria Watkins MD on 04/25/2025 09:08:03 Dictated By: Gloria Watkins MD Signed By: <Electronically signed by Gloria Watkins MD in OV> 04/25/25907 DD/ 7 TD/TT: 04/25/25907 Educational Technician: [facility] External Provider IMG CT PROCEDURES Final Result * (ABNORMAL) CBC auto differential (04/25/2025 1:09 AM EDT) White Blood Count 8.3 4.8 - 10.8 X10*3/uL [facility] Red Blood Count 4.36(L) 4.60 - 5.80 X10*6/uL [facility] Hemoglobin 13.3(L) 14.0 - 18.0 g/dl [facility] Hematocrit 39.5(L) 42.0 - 52.0 % [facility] Mean Corpuscular Volume 90.6 80.0 - 98.0 fL [facility] Mean Corpuscular Hemoglobin 30.5 27.0 - 33.0 pg [facility] Mean Corpuscular HGB Conc 33.7 31.0 - 36.0 g/dl [facility] Red Cell Distribution Width 12.5 11.0 - 16.0 % [facility] Platelet Count 191 160 - 400 X10*3/uL [facility] Mean Platelet Volume 10.1 9.4 - 12.4 fL [facility] Neutrophils Percent Auto 71.5 45 - 73 % [facility] Imm Gran Pct Auto 0.2 0.0 - 0.4 % [facility] Lymphocytes Percent Auto 21.5 20 - 40 % [facility] Monocytes Percent Auto 6.0 2 - 11 % [facility] Eosinophils Percent Auto 0.4 0 - 4 % [facility] Basophils Percent Auto 0.4 0 - 2 % [facility] NRBC Pct Auto 0.0 0.0 - 0.2 /100WBC [facility] Neutrophils Absolute Auto 6.0 2.0 - 8.3 x10*3/uL [facility] Imm Gran Abs Auto 0.02 0.00 - 0.03 X10*3/uL [facility] Lymphocytes Absolute Auto 1.8 1.2 - 4.9 X10*3/uL [facility] Monocytes Absolute Auto 0.5 0.1 - 1.2 X10*3/uL [facility] Eosinophils Absolute Auto 0.0 0.0 - 0.4 X10*3/uL [facility] Basophils Absolute Auto 0.0 0.0 - 0.2 X10*3/uL [facility] NRBC Abs Auto 0.000 0.0 - 0.012 X10*3/uL [facility] 04/25/2025 1:09 AM EDT 04/25/2025 1:16 AM EDT Generic External Data Provider LAB BLOOD ORDERAB LES Final Result Performing Organization Address [facility] de Phone Number [facility] [address] [place] [phone] * Magnesium (04/25/2025 1:09 AM EDT) Pathologist [facility] Magnesium 2.1 1.6 - 2.6 mg/dL [facility] 04/25/2025 1:09 AM EDT 04/25/2025 1:16 AM EDT Generic External Data Provider LAB BLOOD ORDERAB LES Final Result Performing Organization Address [facility] de Phone Number [facility] [address] [place] [phone] * Lipase (04/25/2025 1:09 AM EDT) Pathologist [facility] Lipase 23 8 - 78 U/L [facility] 04/25/2025 1:09 AM EDT 04/25/2025 1:16 AM EDT Generic External Data Provider LAB BLOOD ORDERAB LES Final Result Performing Organization Address [facility] de Phone Number [facility] [address] [place] [phone] * (ABNORMAL) Comprehensive Metabolic Panel (04/25/2025 1:09 AM EDT) [facility] Sodium 143 135 - 145 mmol/L [facility] Potassium 3.8 3.3 - 5.1 mmol/L [facility] Chloride 105 96 - 108 mmol/L [facility] Carbon Dioxide 28 22 - 29 mmol/L [facility] Anion Gap 14 12 - 20 [facility] Urea Nitrogen (BUN) 8(L) 9 - 16 mg/dL [facility] Creatinine, Serum 0.61 0.5 - 1.4 mg/dL [facility] Creatinine Clr Calc Pharmacy 131.6 [facility] Comment:eGFR (calculated fro m the MDRD study equation) and eCrCl(calculated from the Cockcroft-Gault equation) are based ondifferent parameters and may not yield comparable results.If eCrCl result is absurd, please check patient'sheight/weight. Estimated Glomerular Filt Rate >60 [facility] Comment:Chronic Kidney Disea se: Estimated GFR < 60 mL/min/[id number] Kidney Disease: Estimated GFR < 15 mL/min/1.73m2 Glucose 109 60 - 115 mg/dL [facility] Calcium 9.0 8.4 - 10.2 mg/dL [facility] Bilirubin, Total 0.8 0.0 - 1.0 mg/dL [facility] Aspartate Amino Transferase 39(H) 5 - 37 U/L [facility] Alanine Aminotransferase 66(H) 0 - 40 U/L [facility] Total Protein 7.4 6.5 - 8.0 g/dL [facility] Albumin Level 4.1 3.5 - 5.0 g/dL [facility] Alkaline Phosphatase 76 39 - 117 U/L [facility] 04/25/2025 1:09 AM EDT 04/25/2025 1:16 AM EDT us Generic External Data Provider LAB BLOOD ORDERAB LES Final Result [facility] [address] [place] [address] [phone] * Referral to Ophthalmology (04/09/2025) us Daina Quinn MD OUTPATIENT REFERR AL ORDERABLES Final Result * Hepatitis C Antibody with Reflex to HCV, RNA, Quantitative, Real-Time PCR (02/05/2025 9:07 AM EDT) Hepatitis C Antibody Nonreactive Nonreactive [facility] Comment:Antibodies to HCV no t detected; does not exclude early acuteHCV infection. Blood Venous blood specimen / Unknown 02/05/2025 9:07 AM EDT 02/05/2025 11:31 AM EDT us Daina Quinn MD LAB BLOOD ORDERAB LES Final Result Performing Organization Address [facility]/ZIP Co de Phone Number [facility] [address] [place] [phone] * HIV-1/2 Antigen and Antibodies, Fourth Generation, with Reflexes (02/05/2025 9:07 AM EDT) HIV AB/AG Nonreactive Nonreactive [facility] Comment:HIV-1 p24 Ag and/or HIV-1/HIV-2 Ab not detected.A test result that is nonreactive does not exclude thepossibility of exposure to or infection with HIV-1 and/orHIV-2. Nonreactive results in this assay for individualswith prior exposure to HIV-1 and/or HIV-2 may be due toantigen and antibody levels that are below the limit ofdetection of this assay.The [email or web address] HIV Ag/Ab Combo assay result andsupplemental assay results should be interpreted inconjunction with the patient's clinical presentation,history and other laboratory results. If the results areinconsistent with clinical evidence, additional testing issuggested to confirm the result. Blood Venous blood specimen / Unknown 02/05/2025 9:07 AM EDT 02/05/2025 11:31 AM EDT us Daina Quinn MD LAB BLOOD ORDERAB LES Final Result Performing Organization Address [facility]/ZIP Co de Phone Number [facility] [address] [place] [phone] * Lipid Panel, Standard (02/05/2025 9:07 AM EDT) Triglycerides 96 <150 mg/dL [facility] Comment:Desirable Triglyceri de: less than 150 mg/dLBorderline High Triglyceride 150-199 mg/dLHigh Triglyceride: 200-499 mg/dLVery High Triglyceride: greater than or equal to 5OO mg/dL Cholesterol 185 <200 mg/dL [facility] Comment:Desirable Cholestero l: less than 200 mg/dLBorderline High Cholesterol: 200-239 mg/dLHigh Cholesterol: greater than 239 mg/dL LDL Cholesterol Calculated 98 <100 mg/dL [facility] Comment:Desirable LDL: less than 100 mg/dLNear Optimal/Above Optimal LDL: 110- 129 mg/dLBorderline High LDL: 130-159 mg/dLHigh LDL: 160-189 mg/dLVery High LDL: greater than or equal to 190 mg/dL HDL Cholesterol 68 >40 mg/dL [facility] Comment:Desirable HDL: great er than 40 mg/dL Note: This HDL assay may give artificially low results in patients with liver disease. Blood Venous blood specimen / Unknown 02/05/2025 9:07 AM EDT 02/05/2025 11:31 AM EDT us Daina Quinn MD LAB BLOOD ORDERAB LES Final Result Performing Organization Address City/State/[facility] Co de Phone Number [facility] [address] [place] [phone] from Last 3 Months or Most Recently Relevant to Health Maintenance Insurance # [place] [address] [employer] < 65 KATIE PATTERSON [id number] Care Teams Manager Of Product Relationship Specialty Start Date End Date Daina Pichardo MD [address] [place] [address] [phone] PCP - General Internal Medicine 12/16/22
--- OUTSIDE RECORDS SUMMARY | 2025-06-23 01:07 | XMS_ITS | Encounter Summary ---
Author Organization [employer] Address [address] [place] [address] Care Team Providers Care Milling/Polishing Operator Name Role Phone Daina Pichardo MD Primary Care Pro vider Reason for Visit * Reason Onset Date Comments Med Refill 03/08/2025 Encounter Details Date Type Department Care Team (Late st Contact Info) Description 03/08/2025 Refill [facility] [address] [place], [place] [phone] Daina Pichardo MD [address] [place], [place] [phone] Pain Social History Tobacco Use Types Packs/Day Years [...] housing situation today? I have balwindergiovanna levy 10/23/[address] you [...] Description 07/04/2025 9:00 AM EST Clinical Support [facility] MED & PEDS [address] [place] [address] Hanna Mark, RN [address] [place] [address] 09/06/2025 9:30 AM EST Office Visit [facility] [address] [place] [address] Daina Pichardo MD [address] [place] [address] documented as of this encounter Visit Diagnoses Diagnosis Pain Generalized pain documented in this encounter Additional Health Concerns Assessment Noted Time PHQ-9 Depression Total Score: 0 11/01/19 25 9:19 AM EDT documented as of this encounter Care Teams Milling/Polishing Operator Relationship Specialty Start Date End Date Daina Pichardo MD [address] [place] [phone] PCP - General Internal Medicine 12/16/22 documented as of this encounter
--- OUTSIDE RECORDS SUMMARY | 2025-06-23 01:07 | XMS_ITS | Encounter Summary ---
Author Organization [employer] Address [address] [place] [address] Care Team Providers Care Coating Machine Helper Name Role Phone Daina Pichardo MD Primary Care Pro vider Reason for Visit * Reason Onset Date Comments Med Refill 06/14/2023 Encounter Details Date Type Department Care Team (Late st Contact Info) Description 06/14/2023 Refill [facility] MED[facility]INE [address] [place], [place] [phone] Daina Pichardo MD [address] [place] [address] Social History Tobacco Use Types Packs/Day Years [...] Description 07/04/2025 9:00 AM EST Clinical Support [facility] MED & PEDS [address] [place] [address] Hanna Mark, RN [address] [place] [address] 09/06/2025 9:30 AM EST Office Visit [facility] [address] [place] [address] Daina Pichardo MD [address] [place] [address] documented as of this encounter Visit Diagnoses Not on filedocumented in this encounter Additional Health Concerns Assessment Noted Time PHQ-9 Depression Total Score: 3 02/16/20 10:56 AM EDT documented as of this encounter Care Teams Coating Machine Helper Relationship Specialty Start Date End Date Daina Pichardo MD [address] [place] [address] PCP - General Internal Medicine 12/16/22 documented as of this encounter
--- OUTSIDE RECORDS SUMMARY | 2025-06-23 01:07 | XMS_ITS | Clinical Summary ---
Author Organization [facility] Address [address] [place] [address] Care Team Providers Care Sustainability Manager Name Role Phone Daina Pichardo Primary Care Provider [phone] Allergies Active Allergy Reactions Criticality Noted Date [...] capsuleIndicatio ns:Crohn's disease of small intestine with complication,Gas troesophageal reflux disease with esophagitis, unspecified whether hemorrhage [...] skin every 7 days. 4 each 1 06/08/2025 5:11 PM EST 5 07/06/20 25 Active Active Problems Problem Noted Date Diagnosed Date High risk medication use 03/20/2025 Nausea and vomiting 03/20/2025 Gastroesophageal reflux disease 03/20/2025 Chronic abdominal pain 03/20/2025 Preoperative clearance 04/01/2020 Crohn's disease of small [...] and ileoanal J-pouch anastomosis in 2006 at [facility]. IBD Complications: Recurrent small bowel obstructions of [...] and then presented to the hospital at [facility]. He therefore missed his colonoscopy. 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 Encounters Date Type Department Care Team Description 05/31/2025 myChart Message [facility] Building [address] [place] [address] Mychart, Generic Provider Humira 40mg/0.4mL Pen refill 05/12/2025 Results Follow-[facility] [address] [place] [address] Slip Injector And Applicator: Doris Rubio MD 05/08/2025 7:40 AM EDT - 05/08/2025 8:00 AM EDT Surgery [address] Endoscopy [address] [address] Doris Reid MD UPPER ENDOSCOPY; DIAGNOSTIC WITH BRUSH/WASH (SP) WITH POSSIBLE MODERATE SEDATION [04518 (CPT )] 05/08/2025 7:39 AM EDT Anesthesia Event [address] [address] Mark Santillan MD Bobba, Jack Burgess MD 05/08/2025 7:16 AM EDT - 05/08/2025 8:27 AM EDT Hospital Encounter [address] [address] Doris Reid MD Crohn's disease of small intestine with complication (HCC); Nausea and vomiting, unspecified vomiting type; Gastroesophageal reflux disease, unspecified whether esophagitis present Discharge Disposition: Home or Self Care (01) 05/07/2025 myChart Message [facility] Building [address] [place] [address] Mychart, Generic Provider Humira 40mg/0.4mL Pen refill 05/07/[address] Endoscopy Center [address] [place] [address] Rubi Sullivan RN 05/02/2025 Refill [facility] [address] [place] [address] Slip Injector And Applicator: Doris Rubio MD 04/30/2025 Prep for Case [facility] [address] [place] [address] Slip Injector And Applicator: Doris Rubio MD from Last 3 Months [...] Sign Reading Time Taken Comments Blood Pressure 107/72 05/08/2025 8:14 AM EDT Pulse 65 05/08/2025 8:12 AM EDT Temperature 36.2 C (97.2 F) 05/08/2025 7:57 AM EDT Respiratory Rate 19 05/08/2025 8:12 AM EDT Oxygen Saturation 96% 05/08/2025 8:12 AM EDT Inhaled Oxygen Concentration - - Weight 65.8 kg (145 lb) 05/08/2025 7:31 AM EDT Height 167.6 cm (5' 6 ) 05/08/2025 7:31 AM EDT Body Mass Index 23.4 05/08/2025 7:31 AM EDT Plan of Treatment Upcoming Encounters Date Type Department Care Team (Late st Contact Info) Description 10/17/2025 10:30 AM EDT Follow-Up [facility] [address] [place] [address] Slip Injector And Applicator: Lesli Solis Health Maintenance Due Date Last Done Comments Cologuard 1980 Colonoscopy 1980 Sigmoidoscopy 03/10/2024 03/10/2019, 03/10/2019 Alcohol/Substance Use Screening 07/12/2024 Depression Screening and Follow-Up 07/12/2024 Social Drivers of Health Annual Screening 07/12/2024 COVID-19 Vaccine ( season) 2025 07/07/2021, 12/28/2020, 11/30/2020 Colon Cancer Screening 02/05/2026 FOBT / Fit Test 02/05/2026 02/05/2025, 03/25/2023 DTaP,Tdap,and Td Vaccines (4 - Td or Tdap) 01/12/2028 01/11/2018, 05/11/2012, 11/10/2010, Additional history exists Hepatitis B Vaccines Completed 12/21/2023, 06/11/2023, 04/13/2023, Additional history exists HIV Screening Completed 02/05/2025, 02/05/2025 Hepatitis C Screening Completed 02/05/2025 , 03/25/2023, 01/11/2018 Influenza Vaccine Completed 02/18/2025, , 02/24/2023, Additional history exists Pneumococcal Vaccine: Pediatric (0-5 Years) and At-Risk Patients (6-50 Years) Aged Out 04/03/2025, 04/04/2018, 01/11/2018, Additional history exists No longer eligible based on patient's age to complete this topic Goals Goal Patient Goal Type Associated Problems Recent Progress Patient-Stated? Author Autogenerat ed Goal Care Plan Autogenerated Problem No Silva Elias, COLTON Procedures * Due to [place] [place] law, this organization might not be sharing negative HIV tests. Procedure Name Priority Date/Time Associated Diagnosis Comments TISSUE EXAM Routine 05/08/2025 7:51 AM EDT Crohn's disease of small intestine with complication Nausea and vomiting, unspecified vomiting type Gastroesophageal reflux disease, unspecified whether esophagitis present MS ESOPHAGOGASTRODUODENOSCOP Y TRANSORAL DIAGNOSTIC 05/08/2025 7:38 AM EDT Crohn's disease of small intestine with complication Nausea and vomiting, unspecified vomiting type Gastroesophageal reflux disease, unspecified whether esophagitis present UPPER GI ENDOSCOPY 05/08/2025 HEPATITIS C RNA, QUANTITATIV E PCR W/REFLEX HCV GENOTYPE Routine 01/11/2018 12:08 PM EDT Crohn's disease of small intestine with complication from Last 3 Months or Most Recently Relevant to Health Maintenance Results * Due to [place] [place] law, this organization might not be sharing negative HIV tests. * Tissue Exam (05/08/2025 7:51 AM EDT) Final Diagnosis Specimen #1 - Duodenum, Biopsy: - Duodenal mucosa, within normal limits. Specimen #2 - Stomach, Biopsy: - Antral mucosa with mild chemical gastritis (nonsteroidal anti-inflammato ry drugs, bile reflux, etc.). Normal oxyntic mucosa. No Helicobacter organisms are identified. Negative for intestinal metaplasia. Note: The patient's history of Crohn's disease is noted. Negative for dysplasia, granulomata, and viral cytopathic effect, all parts. [facility] 05/09/2025 10:57 AM EDT [facility] at 1057 EDT Clinical History Pre-op diagnosis: Crohn's disease of small intestine with complication (HCC) [K50.019] Nausea and vomiting, unspecified vomiting type [R11.2] Gastroesophagea l reflux disease, unspecified whether esophagitis present [K21.9] [facility] 05/09/2025 10:57 AM EDT [facility] Gross Description 1. Small Intestine, Duodenum Received in formalin, labeled the patient's name, MRN, date of , and duodenum BX , are multiple herrera-pink, irregular soft tissue fragments (0.9 x 0.5 x 0.2 cm in aggregate), which are filtered and entirely submitted in cassette 1A. 2. Stomach Received in formalin, labeled the patient's name, MRN, date of , and stomach BX , are 3 herrera-pink, irregular soft tissue fragments (averaging 0.4 x 0.2 x 0.1 cm), which are filtered and entirely submitted in cassette 2A. [facility] 05/09/2025 10:57 AM EDT [facility] Gross Description User Grossing complete by Kailey Allen on 05/08/2025 12:56 PM [facility] MANUAL 05/09/2025 10:57 AM EDT [facility] Embedded Images [facility] 05/09/2025 10:57 AM EDT [facility] Resulting Agency Case was signed out at [facility], Department of Pathology, [employer] 3 CLIA [id number] [facility] 05/09/2025 10:57 AM EDT [facility] Report Header Surgical Pathology Report Case: [id number] Authorizing Provider: Doris Reid MD Collected: 05/08/2025 0751 Ordering Location: [facility] Received: 05/08/2025 1223 Center [facility] Endoscopy [employer] Pathologist: Markus Acuña MD PhD Specimens: 1) - Small Intestine, Duodenum, duodenum bx 2) - Stomach, stomach bx 05/09/2025 10:57 AM EDT [facility] Tissue Specimen from stomach / Unknown 05/08/2025 7:51 AM EDT 05/08/2025 12:23 PM EDT Comment:Pre-op diagnosis: Crohn's disease of small intestine with complication (HCC) [K50.019] Nausea and vomiting, unspecified vomiting type [R11.2] Gastroesophageal reflux disease, unspecified whether esophagitis present [K21.9] Tissue specimen (specimen) Specimen from stomach / Unknown 05/08/2025 7:51 AM EDT 05/08/2025 12:23 PM EDT Comment:Pre-op diagnosis: Crohn's disease of small intestine with complication (HCC) [K50.019] Nausea and vomiting, unspecified vomiting type [R11.2] Gastroesophageal reflux disease, unspecified whether esophagitis present [K21.9] us Doris Reid MD LAB PATHOLOGY/CYTOLOGY ORDE [place] Final Result [facility] [address] [place] [address], * UPPER GI ENDOSCOPY (05/08/2025) Narrative Procedure Note Doris Reid MD - 05/08/2025 7:25 AM EDT [facility] Endoscopy - [address] [place] [address] Patient Name: Jony Suárezpo Procedure Date: 05/08/2025 7:25AM Date of : 1980 Admit Type: Outpatient Age: 44 Room: [place] [address] Gender: Male Note Status: Finalized Attending MD: Doris Reid MD, [id number] Procedure: Upper GI endoscopy Indications: Persistent vomiting with nausea, Weight loss Providers: Doris Reid MD Referring MD: Taryn Galloway MD (Referring MD), Daina Quinn (ReferringMD) Requesting Provider: Medicines: Monitored Anesthesia Care Complications: No immediate complications. Procedure: After obtaining informed consent, the endoscope was passed under direct vision. Throughout theprocedure, the patient's blood pressure, pulse, and oxygen saturations were monitored continuously. TheEndoscope was introduced through the mouth, and advanced tothe second part of duodenum. The upper GI endoscopy was accomplished without difficulty. The patienttolerated the procedure well. Findings: The Z-line was regular and was found 39 cm from the incisors. The esophagus was normal. No gross lesions were noted in the stomach. Biopsies were taken witha cold forceps for histology. The cardia and gastric fundus were normal on retroflexion. The examined duodenum was normal. Biopsies were taken with a cold forceps for histology. Impression: - Z-line regular, 39 cm from the incisors. - Normal esophagus. - No gross lesions in the stomach. Biopsied. - Normal examined duodenum. Biopsied. Recommendation: - Await pathology results. - Patient has a contact number available for emergencies. The signs and symptoms of potential delayed complications were discussed with thepatient. Return to normal activities tomorrow. Written discharge instructions were provided to thepatient. - Resume previous diet. - Continue present medications. Doris Reid MD 05/08/2025 7:59:51 AM Number of Addenda: 0 Note Initiated On: 05/08/2025 7:25 AM Estimated Blood Loss: Estimated blood loss was minimal. Doris Reid MD [employer] PROCEDURES Final Result * Hepatitis C PCR w/Reflex HCV Genotype (01/11/2018 12:08 PM EDT) Hcv RNA, Quantitative Real Time PCR <15 NOT DETECTED NOT DETECTED IU/mL 01/13/2018 10:07 PM EDT [employer] [facility] Hcv RNA, Quantitative Real Time PCR <1.18 NOT DETECTED NOT DETECTED Log IU/mL 01/13/2018 10:07 PM EDT [facility] Comment: This test was performed using Real-Time Polymerase Chain Reaction. Reportable Range: 15 IU/mL to 100,000,000 IU/mL (1.18 Log IU/mL to 8.00 Log IU/mL). The analytical performance characteristics of this assay have been determined by [employer]. The modifications have not been cleared or approved by the FDA. This assay has been validated pursuant to the CLIA Regulations and is used for clinical purposes. For more information on this test, go to: http://education.[employer]/faq/TEQ24x7 (This link is being provided for informational/ Educational purposes only.) Blood specimen (specimen) Structure of peripheral vein / Unknown Venipuncture / Unknown 01/11/2018 12:08 PM EDT 01/11/2018 12:20 PM EDT Narrative [facility] - 01/13/2018 10:07 PM EDT [facility] Received Date: Luis Doherty MD LAB BLOOD ORDERABLES Edited Result - Final [facility] [address] [facility] [address], [place] [address], [place] [phone] [employer] [facility] [address] [facility] [address], [place] [address], [place] [phone] from Last 3 Months or Most Recently Relevant to Health Maintenance Additional Health Concerns Active Problems Noted Date Diagnosed Date Autogenerated Problem 03/20/2025 Insurance [employer] KATIE PATTERSON [id number] Advance Directives Documents on File Type Date Recorded Patient Outside Industrial Sales Representative Expl [facility] Health Care Proxy 06/02/2017 11:11 AM * Full Code (Latest Code Status on File) Date Activated Date Inactivated Comments 05/05/2024 3:58 PM 05/05/2024 7:04 PM Care Teams Sustainability Manager Relationship Specialty Start Date End Date Daina Pichardo PCP - General 10/12/23
--- OUTSIDE RECORDS SUMMARY | 2025-06-23 01:07 | XMS_ITS | Encounter Summary ---
Author Organization [employer] Address [address] [place] [address] Care Team Providers Care Retail Account Representative Name Role Phone Daina Pichardo MD Primary Care Pro vider Reason for Visit * Reason Onset Date Comments Med Refill 08/23/2023 Encounter Details Date Type Department Care Team (Late st Contact Info) Description 08/23/2023 Refill [facility] MED[facility] [address] [place] [address] Daina Pichardo MD [address] [place] [address] Complications of intestinal pouch (CMS/HCC); Crohn's disease [...] Upcoming Encounters Date Type Department Care Team ([facility] st Contact Info) Description 07/04/2025 9:00 AM EST Clinical Support [facility] MED [facility] PEDS [address] [place] [address] Hanna Mark RN [address] [place] [address] 09/06/2025 9:30 AM EST Office Visit [facility] [address] [place] [address] Daina Pichardo MD [address] [place] [address] documented as of this encounter Visit Diagnoses Diagnosis Complications of intestinal pouch (HCC) Crohn's disease of small intestine with complication (HCC) documented in this encounter Additional Health Concerns Assessment Noted Time PHQ-9 Depression Total Score: 3 02/16/20 10:56 AM EDT documented as of this encounter Care Teams Retail Account Representative Relationship Specialty Start Date End Date Daina Pichardo MD [address] [place] [address] PCP - General Internal Medicine 12/16/22 documented as of this encounter
--- OUTSIDE RECORDS SUMMARY | 2025-06-23 01:07 | XMS_ITS | Encounter Summary ---
Author Organization [employer] Address [address] [place] [address] [place] [address] Care Team Providers Care Client Relationship Consultant Name Role Phone Daina Pichardo MD Primary Care Pro vider Reason for Visit * Reason Onset Date Comments Med Refill 02/13/2025 Encounter Details Date Type Department Care Team (Late st Contact Info) Description 02/13/2025 Refill [facility] PEDS [address] [place] [address] Daina Pichardo MD [address] [place] [address] Insomnia, unspecified type Social History Tobacco Use [...] Description 07/04/2025 9:00 AM EST Clinical Support [facility] PEDS [address] [place] [address] Hanna Mark, RN [address] [place] [address] 09/06/2025 9:30 AM EST Office Visit [facility] MEDICINE [address] [place] [address] Daina Pichardo MD [address] [place] [address] documented as of this encounter Visit Diagnoses Diagnosis Insomnia, unspecified type documented in this encounter Additional Health Concerns Assessment Noted Time PHQ-9 Depression Total Score: 0 11/01/19 25 9:19 AM EDT documented as of this encounter Care Teams Client Relationship Consultant Relationship Specialty Start Date End Date Daina Pichardo MD [address] [place] [address] PCP - General Internal Medicine 12/16/22 documented as of this encounter
--- OUTSIDE RECORDS SUMMARY | 2025-06-23 01:07 | XMS_ITS | Encounter Summary ---
Author Organization [employer] Address [address] [facility] 7 [place] [address] Care Team Providers Care Police Inspector Name Role Phone Daina Pichardo MD Primary Care Pro vider Encounter Details Date Type Department Care Team (Late st Contact Info) Description 06/15/2024 Orders Only [facility] [address] [place], [place] [phone] ProviderReal MD Social History Tobacco Use Types Packs/Day Years [...] Description 07/04/2025 9:00 AM EST Clinical Support [facility] MED & PEDS [address] [place] [address] Hanna Mark, JULIANN [address] [place], [place] [phone] 09/06/2025 9:30 AM EST Office Visit [facility] MED[facility] [address] [place] [address] Daina Pichardo MD [address] [place] [address] documented as of this encounter Procedures Procedure [...] documented as of this encounter Care Teams Police Inspector Relationship Specialty Start Date End Date Daina Pichardo MD [address] [place] [address] [phone] PCP - General Internal Medicine 12/16/22 documented as of this encounter
--- OUTSIDE RECORDS SUMMARY | 2025-06-23 01:07 | XMS_ITS | Encounter Summary ---
Author Organization [employer] Address [address] [place] [id number] Care Team Providers Care Child And Family Services Worker Name Role Phone Daina Pichardo MD Primary Care Pro vider Reason for Visit * Reason Onset Date Comments nurse triage 03/05/2025 Encounter Details Date Type Department Care Team ([facility] st Contact Info) Description 03/05/2025 Telephone [facility] MEDICINE [address] [place] [address] Daina Pichardo MD [address] [place] [address] nurse triage Social History Tobacco Use Types Packs/Day Years [...] encounter Miscellaneous Notes * Telephone Encounter - Jessica Jonas RN - 03/05/2025 12:38 PM EDT Triage call Pt is given general information regarding apts coming up. Pt is advised to come to apt tomorrow 03/06/[address] Rodriguez as scheduled for 1115am and nurse apt 03/08/25 @ 915am. Pt agrees and will be at these apts. Protocol Used: Information Only Call - No Triage (Adult) Protocol-Based Disposition: Home Care Positive Triage Question: * General information question, no triage required and triager able to answer question * All higher-acuity triage questions were negative Care Advice Discussed: * Reasons To Call Back - New symptoms develop - You have more questions - You become worse * Telephone Encounter - Stephan Aguilera - 03/05/2025 11:42 AM EDT Symptom: Vaccine Reactions - Caller Reports Outcome: Schedule an urgent appointment (within 1 hour) or talk to a nurse or provider soon Reason: Severe pain now The caller accepted this outcome. Peruvian speaking documented in this encounter Plan of Treatment Upcoming Encounters Date Type Department Care Team (Late st Contact Info) Description 07/04/2025 9:00 AM EST Clinical Support [facility] MED [facility] PEDS [address] [place] [address] Hanna Mark, RN [address] [place] [address] 09/06/2025 9:30 AM EST Office Visit [facility] [address] [place] [address] Daina Pichardo MD [address] [place] [phone] documented as of this encounter Visit Diagnoses Not on filedocumented in this encounter Additional Health Concerns Assessment Noted Time PHQ-9 Depression Total Score: 0 11/01/19 25 9:19 AM EDT documented as of this encounter Care Teams Child And Family Services Worker Relationship Specialty Start Date End Date Daina Pichardo MD [address] [place] [phone] PCP - General Internal Medicine 12/16/22 documented as of this encounter
--- OUTSIDE RECORDS SUMMARY | 2025-06-23 01:07 | XMS_ITS | Encounter Summary ---
Author Organization [employer] Address [address] [place] [address] 7 [place] [address] Care Team Providers Care Study Manager Name Role Phone Daina Pichardo MD Primary Care Pro vider Reason for Visit * Reason Onset Date Comments Med Refill 06/14/2023 Encounter Details Date Type Department Care Team (Late st Contact Info) Description 06/14/2023 Refill [facility] MED & PEDS [address] [place] [address] Daina Pichardo MD [address] [place] [address] Anxiety; Insomnia, unspecified type Social History Tobacco [...] 07/04/2025 9:00 AM EST Clinical Support [facility] PEDS [address] [place] [address] Hanna Mark, JULIANN [address] [place] [address] 09/06/2025 9:30 AM EST Office Visit [facility] MEDICINE [address] [place] [address] Daina Pichardo MD [address] [place] [address] documented as of this encounter Visit Diagnoses Diagnosis Anxiety Anxiety state, unspecified Insomnia, unspecified type documented in this encounter Additional Health Concerns Assessment Noted Time PHQ-9 Depression Total Score: 3 02/16/20 10:56 AM EDT documented as of this encounter Care Teams Study Manager Relationship Specialty Start Date End Date Daina Pichardo MD [address] [place] [id number] PCP - General Internal Medicine 12/16/22 documented as of this encounter
--- OUTSIDE RECORDS SUMMARY | 2025-06-23 01:07 | XMS_ITS | Encounter Summary ---
Author Organization [employer] Address [address] [place] [address] Care Team Providers Care Station Installer And Repairer Name Role Phone Daina Pichardo MD Primary Care Pro vider Reason for Visit * Reason Onset Date Comments Med Refill 07/01/2023 Encounter Details Date Type Department Care Team ([facility] st Contact Info) Description 07/01/2023 Telephone [facility] MEDICINE [address] [place], [place] [phone] Daina Pichardo MD [address] [place] [address] Med Refill Social History Tobacco Use Types [...] Description 07/04/2025 9:00 AM EST Clinical Support [facility] MED [facility] PEDS [address] [place] [address] Hanna Mark RN [address] [place] [address] 09/06/2025 9:30 AM EST Office Visit [facility] MEDICINE [address] [place] [address] Daina Pichardo MD [address] [place] [phone] documented as of this encounter Visit Diagnoses Not on filedocumented in this encounter Additional Health Concerns Assessment Noted Time PHQ-9 Depression Total Score: 3 02/16/20 10:56 AM EDT documented as of this encounter Care Teams Station Installer And Repairer Relationship Specialty Start Date End Date Daina Pichardo MD [address] [place] [phone] PCP - General Internal Medicine 12/16/22 documented as of this encounter
--- OUTSIDE RECORDS SUMMARY | 2025-06-23 01:07 | XMS_ITS | Encounter Summary ---
Author Organization [employer] Address [address] [place] [address] Care Team Providers Care Clerical Administrative Assistant Name Role Phone Daina Pichardo MD Primary Care Pro vider Reason for Visit * Reason Onset Date Comments Med Refill 05/11/2023 Encounter Details Date Type Department Care Team ([facility] st Contact Info) Description 05/11/2023 Telephone [facility] MEDICINE [address] [place], [place] [phone] Daina Pichardo MD [address] [place] [address] Med Refill Social History Tobacco Use Types [...] Description 07/04/2025 9:00 AM EST Clinical Support [facility] MED & PEDS [address] [place] [address] Hanna Mark, JULIANN [address] [place] [address] 09/06/2025 9:30 AM EST Office Visit [facility] MEDICINE [address] [place] [address] Daina Pichardo MD [address] [place] [phone] documented as of this encounter Visit Diagnoses Not on filedocumented in this encounter Additional Health Concerns Assessment Noted Time PHQ-9 Depression Total Score: 3 02/16/20 10:56 AM EDT documented as of this encounter Care Teams Clerical Administrative Assistant Relationship Specialty Start Date End Date Daina Pichardo MD [address] [place] [phone] PCP - General Internal Medicine 12/16/22 documented as of this encounter
--- OUTSIDE RECORDS SUMMARY | 2025-06-23 01:07 | XMS_ITS | Data Portability ---
Author Organization [facility], [facility] Address [address] [place] [address] Care Team Providers Care Detector Car Operator Name Role Phone HIM CCA OTHER Unavailable OTHER Assessment Encounter Date Assessment Date Assessment LastModified by Organization Details LastModified Time 07/14/2024 07/14/2024 I have reviewed and agree with the assessment and plan as documented by the negotiator. I provided real-time medical direction for this [...] in the field was performed by my negotiator colleague, as noted above, I provided real-time [...] have recommended supportive care with hydration and ilmz-uut-zcvswzh antitussive as needed. I recommended patient follow-up [...] Ag, QL IA, respiratory specimen [address], [address] [place] [address], [address] [place] [address] 5 07:48:10 rapid flu (A+B) [address], [address] [place] [address] 5 07:48:11 urinalysis, dipstick [address], [address] [place] [address] 5 15:46:26 BMP, serum or plasma [address], [address] [place] [address] 4 22:02:45 Referral None recorded. Procedures None recorded. Surgeries None recorded. Imaging electrocard iogram [address], [address] [place] [address] 4 22:03:56 Medication Orders ketorolac 30 mg/mL injection solution 2024 025 [facility]/Pharmacy #[id number], [address] [place], [address], 5 15:46:26 ondansetron HCl (PF) 4 mg/2 mL injection solution 2023 024 [email or web address] Not available 4 21:59:32 sodium chloride 0.9 % intravenous solution 2023 024 [email or web address] Not available 4 21:59:32 promethazin e 25 mg tablet 2023 024 [facility]/Pharmacy #[id number], [address] [place], [address], 4 22:01:39 ondansetron HCl (PF) 4 mg/2 mL injection solution 2022 023 [email or web address] Not available 3 13:13:37 dimenhydrin ate 50 mg/mL injection solution 2022 023 [email or web address] Not available 3 13:13:29 Patient TargetsNo targets recorded. Patient InstructionsNo instructions recorded. Reason for Referral None Reported. Results Created Date Observation Date Name Description Value Unit Range Abnormal Flag Note LastModifiedBy Organization Detail LastModifiedTime 08/14/19 24 08/14/2023 BMP, serum or plasm a BUN 16 Not Available Main - Ins [address], [address] 08/14/2023 21:13:37 08/14/19 24 08/14/2023 BMP, serum or plasm a Ca 1.14 Not Available Main - [facility] [address], [address] 08/14/2023 21:13:37 08/14/19 24 08/14/2023 BMP, serum or plasm a CI- 105 Not Available Main - Ins [address], [address] 08/14/2023 21:13:37 08/14/19 24 08/14/2023 BMP, serum or plasm a CRE 0.7 Not Available Main - [facility] [address], [address] 08/14/2023 21:13:37 08/14/19 24 08/14/2023 BMP, serum or plasm a GLU 76 Not Available Main - [facility] [address], [address] 08/14/2023 21:13:37 08/14/19 24 08/14/2023 BMP, serum or plasm a K+ 3.9 Not Available Main - [facility] [address], [address] [place] [address] 08/14/2023 21:13:37 08/14/19 24 08/14/2023 BMP, serum or plasm a Na+ 141 Not Available Main - [facility] [address], [address] [place] [address] 08/14/2023 21:13:37 08/14/19 24 08/14/2023 BMP, serum or plasm a tCO2 27 Not Available Main - [facility] [address], [address] [place] [address] 08/14/2023 21:13:37 08/14/19 24 08/14/2023 elect cathy vincent am No observ ation record ed. [email or web address] Main - [address], [address] [place] [address] 08/14/2023 22:03:56 Result Notes None recorded. Medical Equipment None Reported. Allergies Allergen ID Allergen Name Allergen Category Reaction Reaction Severity Criticality Documentation Date Start Date Code Code System Note Provider Name and Address Organization Details Recorded Time 99200 Haldol medicatio n Not available Not available Not available 07/14/2024 44290 9 RxNorm Not Available [facility] - [facility] 5 11:23:38 26152 meperidin e medicatio n Not available Not available Not available 07/14/2024 6754 RxNorm Not Available [facility] - [facility] 5 11:23:38 20682 metoclopr amide Not available Not available Not available Not available 07/14/2024 6915 RxNorm Not Available [facility] - production 5 11:23:38 35575 morphine medicatio n Not available Not available Not available 07/14/2024 7052 RxNorm Not Available [facility] - production 5 11:23:38 12437 Demerol medicatio n Not available Not available Not available 12/22/2024 73436 1 RxNorm Not Available [facility] - production 5 10:18:42 98020 prochlorp erazine medicatio n Not available Not available Not available 12/22/2024 8704 RxNorm Not Available [facility] - production 5 10:18:42 83244 Zofran medicatio n Not available Not available Not available 12/22/2024 23004 RxNorm Not Available [facility] 5 10:18:42 85326 trazodone medicatio n Not available Not available Not available 12/22/2024 06147 RxNorm Not Available [facility] - production 5 10:18:42 45532 Substance with sulfonami de structure and antibacte rial mechanism of action (substanc e) medicatio n Not available Not available Not available 12/22/2024 12476 8003 SNOMED Not Available [facility] - production 5 10:18:42 Medications Name [...] Recorded Heart rate Respiratory rate Oxygen saturation Body weight Body temperature Systolic And Diastolic Provider Name and Address Organization Details Last Updated DateTime 5 88 /min 16 /min 100 % 48860.8 8 g 97.8 [degF] 114/72 mm[Hg] Not Available [employer] - production 5 15:25:09 Date Recorded Respiratory rate Body temperature Heart rate Systolic And Diastolic Provider Name and Address Organization Details Last Updated DateTime 08/14/2023 18 /min 98.6 [degF] 80 /min 110/70 mm[Hg] Not Available [employer] [facility] [email or web address] 4 20:54:04 Date Recorded Body weight Respiratory rate Body temperature Body height Oxygen saturation Heart rate Systolic And Diastolic Provider Name and Address Organization Details Last Updated DateTime 4 14295.7 2 g 18 /min 98.8 [degF] 165.1 cm 98 % 72 /min 128/82 mm[Hg] Not Available [employer] [facility] [email or web address] 4 16:13:17 Date Recorded Respiratory rate Oxygen saturation Heart rate Body height Body temperature Body weight Systolic And Diastolic Provider Name and Address Organization Details Last Updated DateTime 5 19 /min 98 % 77 /min 162.56 cm 97.8 [degF] 93462.4 32 g 117/76 mm[Hg] Not Available [employer] 5 15:04:40 Date Recorded Respiratory rate Heart rate Body temperature Body weight Oxygen saturation Body temperature Heart rate Respiratory rate Body weight Oxygen saturation Systolic And Diastolic Systolic And Diastolic Provider Name and Address Organization Details Last Updated DateTime 3 18 /min 91 /min 97.8 [degF] 34273.7 6 g 97 % 97.8 [degF] 91 /min 18 /min 80979.7 6 g 97 % 98/66 mm[Hg] 98/66 mm[Hg] Not Available [employer] 3 12:38:32 Social History None recorded. Functional Status None recorded. Mental Status None recorded. Family History Nothing Reported. Medical History No medical history recorded. Past Encounters Encounter ID Performer Location Encounter Start Date Encounter Closed Date Diagnosis/Indication Diagnosis SNOMED-CT Code Diagnosis ICD10 Code Diagnosis IMO Codes Diagnosis Note [id number] Kamaljit Chatman MD Main - [address] [phone] 11/10/2021 20:46:30 03/13/2022 15:02:24 Nausea, vomiting and diarrhea 4752474 R11.2 [id number] Tarsha Calderon MD Main - [facility] [address] [place] [phone] 12/28/2022 11:39:14 12/31/2022 15:17:10 Viral upper respiratory tract infection 527849138 J06.9 42 year old male being evaluated [...] or worsen over the next few days. [id number] NGHIA DIAMOND MD Main - [facility] [address] [place] [phone] 08/14/2023 20:54:00 08/15/2023 13:34:39 Crohn's disease 25772180 K50.90 Evaluation in the field was performed by my negotiator colleague, as noted above, I provided real-time [...] in the stool or any other concerns. [id number] Tarsha Calderon MD Main - [facility] [address] [place] [phone] 10/15/2023 16:04:27 10/18/2023 13:00:13 COVID-19 528434143 U07.1 42 year old male being evaluated [...] assessment and plan as documented by the negotiator. I provided real-time medical direction for this encounter and was immediatel y available to provide additional phone-base d assistance as needed. We discussed the diagnostic uncertaint y of home visits and associated risks. We discussed the need to seek care urgently/e mergently in the setting of any new or worsening symptoms. [id number] Mariama Raza MD Main - [facility] [address] [place] [phone] 07/14/2024 15:20:55 07/14/2024 22:04:31 Flank pain 730793374 R10.9 [id number] Ramon Patino MD Main-[facility] ED Medical [facility] [address] [place] [address] 12/22/2024 15:04:38 12/25/2024 19:22:40 Cough 53280154 R05.9 [id number] Health Concerns Section Related Observation LastModified by Organization Detai ls LastModified Time None Recorded Concern Status LastModified by Organization Details LastModified Time None Recorded Advance Directives Directive None Recorded Payers Insurance Date Sequence Insurance Name Policy Number Policy Shearer Covered Member ID Shearer Member ID Guarantor Name 12/28/2022 1 [facility] - DOS PRIOR TO 2022 - DUAL ELIGIBLE (MEDICARE REPLACEMENT/ADV ANTAGE - HMO) Jony Lynn [id number] Jony Lynn 01/03/2025 [address] [facility] - DOS ON OR AFTER 2022 - DUAL ELIGIBLE - GROUP HOME OPTIONS AND ONE CARE (MEDICARE REPLACEMENT/ADV ANTAGE - HMO) Jony Burce Lynn [id number] Artemio Bruce Lynn Notes Date Note Type Note Provider [...] .................... .................... .................... .................... .................... .................... . Pulling Unit Operator Note From Marc Dietrich: pt requesting visit [...] Flu and COVID testing performed, both negative. [facility] contacted, [facility] recommends 1L of normal saline and 4mg of iv Zofran, Pt states he has a reaction to zofran where he breaks out in uticaria and usually get benadryl before zofran, [facility] ordered 25mg of benadryl to be given [...] .................... . Disposition: Fulfilled Tarsha Calderon MD [address] [facility],[address], [place], [address], MELI - JAM MEEHAN 12/28/2022 13:14:21 08/14/2023 text/html ROS as noted in the HPI HPI: mbr with complaints of diarrhea/nausea/vomi ting feeling weak/lightheaded and head ache. denies any CP/SOB. requesting [facility] visit. Protocol Used: Diarrhea Protocol-Based Disposition: Consider [facility], [facility] Community Clinician, or PCP visit within 24 [...] need additional information to process visit -Raymon RN .................... .................... .................... .................... .................... .................... .................... . Pulling Unit Operator Note From Maci Maurice: Community Pulling Unit Operator Chris Maurice CCA1 dispatched to a [facility] for a 42 yom C/O N/V/D/Crohn's [...] cough, sore throat, SOB, or urinary S/S. [facility] consulted; #22 IV placed in his right [...] .................... .................... . 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 c/o chills/weakness/head ache/SOB/dizziness/d iarrhea/pain Denies significant PMH except Crohn's disease. Denies CKD Requesting a visit from [facility] r[facility] complex care then called back member to verify info, verified /address/consent being sent to phone .................... .................... .................... .................... .................... .................... .................... . Pulling Unit Operator Note From Alex Hutton: Headache/nausea/chil ls/fever Chief [...] - noon, lunch. Last Urination 1 hr HAND OUTSIDE CUTTER, normal. MD consult Drinks lots of fluid, [...] .................... . Disposition: Fulfilled Tarsha Calderon MD [address] [facility],[address], [place], [address], Narrato Portfolia 10/15/2023 19:42:09 07/14/2024 text/html HPI: Patient with [...] any additional information to process this visit. Pulling Unit Operator Organization Information for Scott Timmons Business Legal Name: [email or web address] [email or web address] Address: [address] [place] [address], Splitter Hand: Froy Santoyo MD CLIA No.: [id number] Pulling Unit Operator POC Test Results from Scott Timmons [employer] MARBIN Urine Dipstick (15:17:34) Urine leukocytes: NR Urine nitrites: NR Urine urobilinogen: 0.2 URO Urine protein: NR Urine pH: 5 pH Urine blood: NR Urine specific gravity: 1.020 SG Urine ketones: NR Urine bilirubin: NR Urine glucose: NR .................... .................... .................... .................... .................... .................... .................... . Pulling Unit Operator Note From Scott Timmons: Pt co left [...] on palpation. Pt able to ambulate appropriate. [facility] Contacted and 15mg Toradol IM. Pt sts has allergy to zofran (hives). Pt advised if symptoms worsen to go back to the ER. Pt education on signs indicating the ER. .................... .................... .................... .................... .................... .................... .................... . [facility] Consulted: Mariama Raza .................... .................... .................... .................... .................... .................... .................... . Disposition: Josy Mariama Raza MD [address] [place] [address],[address], [place], [address], YuMingle 07/14/2024 17:40:03 12/22/2024 text/html ROS as noted in the HPI HPI: Hx Chrons, colectomy, migraines. Patient in ED recently for back pain. Has had cold type symtoms now for one week duration. Will see [facility] Provider for ED follow up for back and leg pain. .................... .................... .................... .................... .................... .................... .................... . CRC Nurse Triage Notes (Gissel Magdaleno): Reason For Request: cough/ sore throat Chief Complaints: Cough, Sore Throat PMH: Severe Persistent Mental Illness (SPMI), Kidney Stones, Inflammatory Bowel Disease (Crohn's Disease, Ulcerative Colitis), Migraine PMH Reviewed at 12/22/2024:18 Allergies Reviewed at 12/22/2024 - 10:18 Comments: HPI reviewed Pulling Unit Operator Organization Information for Alia Mark Business Legal Name: [facility] [employer] Address: [address] [place] [address], MEL[place] Cornejo [address], Splitter Hand: Froy Santoyo MD CLIA No.: [id number] Pulling Unit Operator POC Test Results from Mark, Keyanu - ALS Rapid COVID antigen (15:05:53) COVID: - Attachments uploaded as part of this test result can be found under Documents section. Rapid influenza antigen (15:05:54) Flu: - Attachments uploaded as part of this test result can be found under Documents section. .................... .................... .................... .................... .................... .................... .................... . Pulling Unit Operator Note From Alia Mark: pt chief complaint today of cold/flu symptoms that have been occurring for approx 1 week prior to [facility] arrival at scene today. pt expresses he [...] assessment performed as well as possible treatment. [facility] called in via p pcp. pt denies any c, sob, nvd blurred vision. allergies noted non neural focal exam, afebrile, vitals wnl for the baseline of the pt. lungs present as clear bilaterally on auscultation, benign abdominal assessment. no lower extremity edema noted. poc covid/ flu test given with a negative result. P is caox4 with a gcs of 15. [facility] Sheikh Ramon consulted pt is informed of findings. pt is told to follow up with his pcp and or insted staff as needed. all parties educated on red flag s&s and to call emergency services if any present. [facility] Lab Orders: rapid SARS CoV 2 Ag, QL IA, respiratory specimen: Performed rapid flu (A+B): Performed .................... .................... .................... .................... .................... .................... .................... . [facility] Consulted: Ramon Patino .................... .................... .................... .................... .................... .................... .................... . Disposition: Fulfilled Ramon Patino MD [address] [place] [address],[address], [place], [address], JAM AMBRIZ 12/23/2024 07:48:14
--- OUTSIDE RECORDS SUMMARY | 2025-06-23 01:07 | XMS_ITS | Encounter Summary ---
Author Organization [employer] Address [address] [place] [address] Care Team Providers Care Assistant Broker Name Role Phone Daina Pichardo MD Primary Care Pro vider Reason for Visit * Reason Onset Date Comments Med Refill 06/20/2024 Encounter Details Date Type Department Care Team ([facility] st Contact Info) Description 06/20/2024 Telephone [facility] [address] [place], [place] [phone] Daina Pichardo MD [address] [place] [address] Med Refill Social History Tobacco Use Types [...] immediate release tablet To be sent to: [facility]/pharmacy #[id number] - [address] documented in this encounter Plan of Treatment Upcoming Encounters Date Type Department Care Team (Late st Contact Info) Description 07/04/2025 9:00 AM EST Clinical Support [facility] [address] [place] [address] Hanna Mark RN [address] [place] [address] 09/06/2025 9:30 AM EST Office Visit [facility] [address] [place], [place] [phone] Daina Pichardo MD [address] [place], [place] [phone] documented as of this encounter Visit Diagnoses Not on filedocumented in this encounter Additional Health Concerns Assessment Noted Time PHQ-9 Depression Total Score: 3 02/16/20 10:56 AM EDT documented as of this encounter Care Teams Assistant Broker Relationship Specialty Start Date End Date Daina Pichardo MD [address] [place] [address] PCP - General Internal Medicine 12/16/22 documented as of this encounter
--- OUTSIDE RECORDS SUMMARY | 2025-06-23 01:07 | XMS_ITS | Encounter Summary ---
Author Organization [employer] Address [address] [place] [address] Care Team Providers Care Waste Reduction Coordinator Name Role Phone Daina Pichardo MD Primary Care Pro vider Reason for Visit * Reason Onset Date Comments Med Refill 09/10/2023 Encounter Details Date Type Department Care Team (Late st Contact Info) Description 09/10/2023 Refill [facility] [address] [place], [place] [phone] Daina Pichardo MD [address] [place], [place] [phone] Anxiety Social History Tobacco Use Types Packs/Day [...] 9:00 AM EST Clinical Support [facility] PEDS [address] [place] [address] Hanna Mark, RN [address] [place] [address] 09/06/2025 9:30 AM EST Office Visit [facility] [address] [place] [address] Daina Pichardo MD [address] [place] [address] documented as of this encounter Visit Diagnoses Diagnosis Anxiety Anxiety state, unspecified documented in this encounter Additional Health Concerns Assessment Noted Time PHQ-9 Depression Total Score: 3 02/16/20 10:56 AM EDT documented as of this encounter Care Teams Waste Reduction Coordinator Relationship Specialty Start Date End Date Daina Pichardo MD [address] [place] [address] PCP - General Internal Medicine 12/16/22 documented as of this encounter
--- OUTSIDE RECORDS SUMMARY | 2025-06-23 01:07 | XMS_ITS | Encounter Summary ---
Author Organization [employer] Address [address] [place] [address] Care Team Providers Care Roll Machine Operator Name Role Phone Daina Pichardo MD Primary Care Pro vider Reason for Visit * Reason Onset Date Comments Med Refill 07/11/2024 Encounter Details Date Type Department Care Team ([facility] st Contact Info) Description 07/11/2024 Telephone [facility] [address] [place], [place] [phone] Daina Pichardo MD [address] [place] [address] Med Refill Social History Tobacco Use Types [...] 07/13/2024 10:21 AM EST Medication sent to [facility] #[id number] on 07/11/24 #30. * Telephone Encounter - Dakota Webber - 07/11/2024 9:16 AM EST TC from pt requesting medication refill. Medications needing refill : zolpidem (Ambien) 10 MG tablet To be sent to: [facility]/pharmacy #[id number] documented in this encounter Plan of Treatment Upcoming Encounters Date Type Department Care Team (Late st Contact Info) Description 07/04/2025 9:00 AM EST Clinical Support [facility] [address] [place] [address] Hanna Mark, JULIANN [address] [place] [address] 09/06/2025 9:30 AM EST Office Visit [facility] [address] [place] [address] Daina Pichardo MD [address] [place] [address] documented as of this encounter Visit Diagnoses Not on filedocumented in this encounter Additional Health Concerns Assessment Noted Time PHQ-9 Depression Total Score: 3 02/16/20 10:56 AM EDT documented as of this encounter Care Teams Roll Machine Operator Relationship Specialty Start Date End Date Daina Pichardo MD [address] [place] [address] PCP - General Internal Medicine 12/16/22 documented as of this encounter
--- OUTSIDE RECORDS SUMMARY | 2025-06-23 01:07 | XMS_ITS | Encounter Summary ---
Author Organization [employer] Address [address] [place] [address] [place] [address] Care Team Providers Care Ice Bag Assembler Name Role Phone Daina Pichardo MD Primary Care Pro vider Reason for Visit * Reason Onset Date Comments Med Refill 06/05/2023 Encounter Details Date Type Department Care Team (Late st Contact Info) Description 06/05/2023 Refill [facility] [address] [place] [address] Daina Pichardo MD [address] [place] [address] Complications of intestinal pouch (CMS/HCC); Crohn's disease [...] Description 07/04/2025 9:00 AM EST Clinical Support [facility]EDS [address] [place] [address] Hanna Mark, JULIANN [address] [place] [address] 09/06/2025 9:30 AM EST Office Visit [facility] [address] [place] [address] Daina Pichardo MD [address] [place] [address] documented as of this encounter Visit Diagnoses Diagnosis Complications of intestinal pouch (HCC) Crohn's disease of small intestine with complication (HCC) documented in this encounter Additional Health Concerns Assessment Noted Time PHQ-9 Depression Total Score: 3 02/16/20 10:56 AM EDT documented as of this encounter Care Teams Ice Bag Assembler Relationship Specialty Start Date End Date Daina Pichardo MD [address] [place] [address] PCP - General Internal Medicine 12/16/22 documented as of this encounter
--- OUTSIDE RECORDS SUMMARY | 2025-06-23 01:07 | XMS_ITS | Encounter Summary ---
Author Organization [employer] Address [address] [place] [address] Care Team Providers Care Bakery Worker Conveyor Line Name Role Phone Daina Pichardo MD Primary Care Pro vider Reason for Visit * Reason Onset Date Comments Med Refill 08/20/2023 Encounter Details Date Type Department Care Team (Late st Contact Info) Description 08/20/2023 Telephone [facility] [address] [place], [place] [phone] Daina Pichardo MD [address] [place] [address] Med Refill Social History Tobacco Use Types [...] immediate release tablet To be sent to: [facility]/pharmacy #[id number] documented in this encounter Plan of Treatment Upcoming Encounters Date Type Department Care Team (Late st Contact Info) Description 07/04/2025 9:00 AM EST Clinical Support [facility] P[facility]S [address] [place] [address] Hanna Mark, JULIANN [address] [place] [address] 09/06/2025 9:30 AM EST Office Visit [facility] [address] [place] [address] Daina Pichardo MD [address] [place] [address] documented as of this encounter Visit Diagnoses Not on filedocumented in this encounter Additional Health Concerns Assessment Noted Time PHQ-9 Depression Total Score: 3 02/16/20 23 10:56 AM EDT documented as of this encounter Care Teams Bakery Worker Conveyor Line Relationship Specialty Start Date End Date Daina Pichardo MD [address] [place] [id number] PCP - General Internal Medicine 12/16/22 documented as of this encounter
--- OUTSIDE RECORDS SUMMARY | 2025-06-23 01:07 | XMS_ITS | Encounter Summary ---
Author Organization [employer] Address [address] [place] [address] [place] [address] Care Team Providers Care Railway Signal Operator Name Role Phone Daina Pichardo MD Primary Care Pro vider Reason for Visit * Reason Onset Date Comments Med Refill 03/11/2025 Encounter Details Date Type Department Care Team (Late st Contact Info) Description 03/11/2025 Refill [facility] PEDS [address] [place] [address] Daina Pichardo MD [address] [place] [address] Insomnia, unspecified type Social History Tobacco Use [...] Description 07/04/2025 9:00 AM EST Clinical Support [facility] PEDS [address] [place] [address] Hanna Mark, RN [address] [place] [address] 09/06/2025 9:30 AM EST Office Visit [facility] MEDICINE [address] [place] [address] Daina Pichardo MD [address] [place] [phone] documented as of this encounter Visit Diagnoses Diagnosis Insomnia, unspecified type documented in this encounter Additional Health Concerns Assessment Noted Time PHQ-9 Depression Total Score: 0 11/01/19 25 9:19 AM EDT documented as of this encounter Care Teams Railway Signal Operator Relationship Specialty Start Date End Date Daina Pichardo MD [address] [place] [phone] PCP - General Internal Medicine 12/16/22 documented as of this encounter
--- OUTSIDE RECORDS SUMMARY | 2025-06-23 01:07 | XMS_ITS | Encounter Summary ---
Author Organization [employer] Address [address] [facility] 7 [place] [address] Care Team Providers Care Field Education Director Name Role Phone Daina Pichardo MD Primary Care Pro vider Reason for Visit * Reason Onset Date Comments Med Refill 02/13/2025 Encounter Details Date Type Department Care Team (Late st Contact Info) Description 02/13/2025 Refill [facility] MEDICINE [address] [place], [place] [phone] Zarina Alarcon MD [address] [place] [address] Social History Tobacco Use Types Packs/Day Years [...] Description 07/04/2025 9:00 AM EST Clinical Support [facility] MED & PEDS [address] [place] [address] Hanna Mark, RN [address] [place] [address] 09/06/2025 9:30 AM EST Office Visit [facility] MEDICINE [address] [place] [address] Daina Pichardo MD [address] [place] [phone] documented as of this encounter Visit Diagnoses Not on filedocumented in this encounter Additional Health Concerns Assessment Noted Time PHQ-9 Depression Total Score: 0 11/01/19 25 9:19 AM EDT documented as of this encounter Care Teams Field Education Director Relationship Specialty Start Date End Date Daina Pichardo MD [address] [place] [id number] PCP - General Internal Medicine 12/16/22 documented as of this encounter
--- OUTSIDE RECORDS SUMMARY | 2025-06-23 01:07 | XMS_ITS | Encounter Summary ---
Author Organization [facility] Address [address] [place] [address] Care Team Providers Care Telemarketing Manager Name Role Phone Daina Pichardo Primary Care Provider [phone] Reason for Visit * Reason Onset Date Comments PAC RX Refill 10/12/2022 Encounter Details Date Type Department Care Team (Late st Contact Info) Description 10/12/2022 Telephone [facility] [address] [place] [phone] Telephone Intake, Staff PAC RX Refill Social [...] for Anna and Budesonide. Pls send to [facility] #[id number] - [place], [place] - [address] [facility] Pls call, Gloria; once sent - [phone] * Telephone Encounter - Geno Kee - 10/21/2022 8:42 AM EDT Prescription Request Drug name(s): budesonide Dose: 3mg Interval: 9mg a day for 28 days Date Last Filled: Quantity: Ordering provider: Vitaly Refill? (yes or no): no Pharmacy Information: Pharmacy Name: [facility] [address] Address:[address] [facility] City: [facility] Fax: Pt was seen yesterday. This prescription was to be called in as stated on visit summary paperwork. * Telephone Encounter - Linn Negro RN - 10/14/2022 10:44 AM EDT Using starcher and tenter range feeder services spoke to patient he will reach out to his doctor in [place] and have himprescribe medication. Patient needs medication [...] or no): Y Pharmacy Information: Pharmacy Name: [facility] Pt's states that he hasn't received a call about refilling his humira and his final remaining dose was last documented in this encounter Plan of Treatment Upcoming Encounters Date Type Department Care Team (Late st Contact Info) Description 10/17/2025 10:30 AM EDT Follow-Up [facility] [address] [place] [address] Commissary Manager: Lesli Solis documented as of this encounter Visit Diagnoses Not on filedocumented in this encounter Care Teams Telemarketing Manager Relationship Specialty Start Date End Date Rogers Kai, Yuliana PCP - General 10/12/23 documented as of this encounter
--- OUTSIDE RECORDS SUMMARY | 2025-06-23 01:07 | XMS_ITS | Clinical Summary ---
Author Organization [facility] Address [address] [place] [phone] Phone Care Team Providers Care Staff Registered Nurse Name Role Phone Physician, Pcp Unknown Primary [...] FOR SLEEP X 28 DAYS 10/02/2020 Active diphenhydrAMINE (BENADRYL) 25 mg tablet Take 2 tablets (50 mg total) by mouth as directed. Take 1 capsule by mouth as needed 30 minutes prior to taking Reglan 24 tablet 04/22/2025 Active Active Problems Problem Noted Date Diagnosed Date Acute gastroenteritis 10/23/2024 Encounters Date Type Department Care Team Description 04/22/2025 8:06 AM EDT - 04/22/2025 2:11 PM EDT Emergency [facility] Emergency [address] [place] [phone] Gastritis, presence of bleeding unspecified, unspecified chronicity, unspecified gastritis type (Primary Dx) Discharge Disposition: Home or Self Care 04/04/2025 4:47 AM EDT - 04/04/2025 11:46 AM EDT Emergency [facility] Emergency [address] [place] [address] Rebel Ventura MD Touriel, Ross, MD Generalized abdominal pain (Primary Dx) Discharge Disposition: Left Against Medical Advice from Last 3 Months Surgical History Surgery Date Site/Laterality Comments CHOLECYSTECTOMY PROCEDURE:CHOLECYSTECTOMY HEMICOLECTOMY PROCEDURE:HEMICOLECTOMY Medical History Medical History Date Comments Crohn's colitis ([facility] V24 , [facility] V28) 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 Anxiety Ulcerative colitis ([facility] V24, [facility] V28) 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 Chronic pain Opiate dependence ([facility] V 24, [facility] V28) Anxiety GERD (gastroesophageal reflux [...] Safety Answer Date Record ed Physical Abuse Unrecognized value 10/23/2024 Verbal Abuse Unrecognized value 10/23/2024 Sex and Gender Information Value Date Recorded Sex Assigned at Male 06/14/2024 1:14 PM EST Legal Sex Male 2:34 AM EST Gender Identity Male 06/14/2024 1:14 PM EST Sexual Orientation Not on file Last Filed Vital Signs Vital Sign Reading Time Taken Comments Blood Pressure 106/73 04/22/2025 10:42 AM EDT Pulse 72 04/22/2025 10:42 AM EDT Temperature 36.6 C (97.9 F) 04/22/2025 10:42 AM EDT Respiratory Rate 16 04/22/2025 10:42 AM EDT Oxygen Saturation 99% 04/22/2025 8:00 AM EDT Inhaled Oxygen Concentration - - Weight 64.9 kg (143 lb) 04/22/2025 8:00 AM EDT Height 165.1 cm (5' 5 ) 04/22/2025 8:00 AM EDT Body Mass Index 23.8 04/22/2025 8:00 AM EDT Plan of Treatment Health Maintenance Due Date Last Done Comments Colorectal Cancer Screening: Colonoscopy 1978 Non-Opioid Controlled Substance Agreement 1978 Opioid Substance Agreement 1978 Pain Assessment 1978 Medicare Annual Wellness Visit 06/14/2022 Social Influencers of Health Screening 06/14/2022 Hepatitis A Vaccines (2 of 2 - Risk 2-dose series) 08/26/2022 02/23/2022 Depression Screening 07/12/2024 COVID-19 Vaccine ( season) 2025 07/07/2021, 12/28/2020, 11/30/2020 Naloxone Order 09/06/2025 09/06/2024 Drug Screen 04/12/2026 04/12/2025, 02/10, 01/31/2025, Additional history exists DTaP,Tdap,and Td Vaccines (5 - Td or Tdap) 01/12/2028 01/11/2018, 05/11/2012, 11/10/2010, Additional history exists Cholesterol Screening (Lipid Panel) 02/05/2030 02/05/2025, 12/20/2023 RSV Immunization Adult Patients (1 - 1-dose 75+ series) 2053 HIV Screening Completed 02/05/2025 Hepatitis C Screening Completed 02/05/2025 , 03/25/2023, 01/11/2018 Influenza Vaccine Completed 02/18/2025, , 02/24/2023, Additional history exists Hepatitis B Vaccines Completed 04/03/2025, 12/21/2023, 06/11/2023, Additional history exists Pneumococcal Vaccine: Pediatrics (0 to 5 Years) and At-Risk Patients (6 to 49 Years) Aged Out 04/03/2025, 04/04/2018, 01/11/2018, Additional [...] Procedure Name Priority Date/Time Associated Diagnosis Comments JOYCE URINE CULTURE TUBE STAT 04/22/2025 10:20 AM EDT URINALYSIS WITH REFLEX MICROSCOPIC AND CULTURE STAT 04/22/2025 10:20 AM EDT URINALYSIS WITH REFLEX MICROSCOPIC AND CULTURE STAT 04/22/2025 10:[address] ABDOMEN PELVIS W CONTRAST STAT 04/22/2025 10:11 AM EDT C-REACTIVE PROTEIN STAT Add-on 04/22/2025 8: 31 AM EDT CBC WITH AUTO DIFFERENTIAL STAT 04/22/2025 8:31 AM EDT LIPASE STAT 04/22/2025 8:31 AM EDT CBC AND DIFFERENTIAL STAT 04/22/2025 8:31 AM EDT COMPREHENSIVE METABOLIC PANEL STAT 04/22/2025 8:31 AM EDT ECG 12-LEAD STAT 04/04/2025 10:[address] ABDOMEN PELVIS W CONTRAST STAT 04/04/2025 7:20 AM EDT JOYCE URINE CULTURE TUBE STAT 04/04/2025 6:03 AM EDT URINALYSIS WITH REFLEX MICROSCOPIC AND CULTURE STAT 04/04/2025 6:03 AM EDT URINALYSIS WITH REFLEX MICROSCOPIC AND CULTURE STAT 04/04/2025 6:03 AM EDT CBC WITH AUTO DIFFERENTIAL STAT 04/04/2025 5:05 AM EDT LIPASE STAT 04/04/2025 5:05 AM EDT COMPREHENSIVE METABOLIC PANEL STAT 04/04/2025 5:05 AM EDT CBC AND DIFFERENTIAL STAT 04/04/2025 5:05 AM EDT from Last 3 Months Results * Urinalysis with reflex microscopic and culture (04/22/2025 10:20 AM EDT) Only the most recent of2 resultswithin the time period is included. Specific Bedias Urine 1.029 1.003 - 1.030 LAB URINALYSIS - AUTOMATED METHOD 04/22/2025 10:45 AM EDT [facility] pH, Urine 6.5 5.0 - 8.0 pH LAB URINALYSIS - AUTOMATED METHOD 04/22/2025 10:45 AM EDT [facility] Leukocytes, Urine Negative Negative LAB URINALYSIS - AUTOMATED METHOD 04/22/2025 10:45 AM T [facility] Nitrite, Urine Negative Negative LAB URINALYSIS - AUTOMATED METHOD 04/22/2025 10:45 AM [facility] Protein, Urine Trace <=Trace mg/dL LAB URINALYSIS - AUTOMATED METHOD 04/22/2025 10:45 AM [facility] Glucose, Urine Negative Negative mg/dL LAB URINALYSIS - AUTOMATED METHOD 04/22/2025 10:45 AM [facility] Ketones, Urine Negative Negative mg/dL LAB URINALYSIS - AUTOMATED METHOD 04/22/2025 10:45 AM [facility] Urobilinogen, Urine 0.2 0.2 - 1.0 mg/dL LAB URINALYSIS - AUTOMATED METHOD 04/22/2025 10:45 AM [facility] Bilirubin, Urine Negative Negative LAB URINALYSIS - AUTOMATED METHOD 04/22/2025 10:45 AM [facility] Blood, Urine Negative Negative LAB URINALYSIS - AUTOMATED METHOD 04/22/2025 10:45 AM [facility] Urine Urine specimen obtained by clean catch procedure / Unknown Non-blood Collection / Unknown 04/22/2025 10:20 AM EDT 04/22/2025 10:40 AM EDT us Ronnell WILSON LAB URINE ORDERABLES Final Result [facility] [address] [place] [address], * Joyce urine culture tube (04/22/2025 10:20 AM EDT) Only the most recent of2 resultswithin the time period is included. Extra Tube Hold for add-ons. 04/22/2025 12:01 PM EDT [facility] Comment:Auto resulted. Urine Urine specimen obtained by clean catch procedure / Unknown Non-blood Collection / Unknown 04/22/2025 10:20 AM EDT 04/22/2025 10:40 AM EDT Ronnell WILSON LAB URINE ORDERABLES Final Result [facility] [address] [place] [address], * CT Abdomen Pelvis w Contrast (04/22/2025 10:11 AM EDT) Only the most recent of2 resultswithin the time period is included. Anatomical Region Laterality Modality Body Computed Tomogra phy 04/22/2025 10:5 2 AM EDT Impressions 04/22/2025 11:00 AM EDT No small bowel wall thickening or inflammatory changes. Stable postoperative changes without bowel obstruction, free air or free fluid. No significant change from the prior study. -------- FINAL REPORT -------- Dictated By: Alyson Pelayo Dictated Date: 04/22/2025 10:52 ET Assigned Physician: Alyson Pelayo Reviewed and Electronically Signed By: Alyson Pelayo Signed Date: 04/22/2025 11:00 ET Workstation ID: [id number] Transcribed By: Self Edit Transcribed Date: 04/22/2025 10:52 ET Narrative 04/22/2025 11:00 AM EDT INDICATION: Abdominal pain, Crohn's disease TECHNIQUE: CT scan of the abdomen and pelvis obtained with a total of 90 cc of Isovue-370 administered intravenously without incident. Oral contrast was not administered. Scanner: [email or web address] 64 slice VCT Dose reduction technique: ASIR (Adaptive statistical iterative reconstruction) and/or AEC (automated exposure control) Dose: total exam DLP 523.95 mGY per cm COMPARISON: Compared to multiple prior studies most recent from April 04, 2025. FINDINGS: Lung bases are clear. Bony structures are unremarkable for the patient's age. Liver, spleen, pancreas, adrenal glands and kidneys are within normal limits. 2 mm right mid pole renal stone, unchanged. 1 mm stone in the lower pole no longer visualized. Status post cholecystectomy. Unopacified stomach unremarkable. Small bowel loops appear normal in course and caliber. Postoperative changes with anastomotic sutures within the right lower quadrant and pelvis are suggestive of colectomy. No bowel wall thickening or dilatation. No free air or free fluid. Urinary bladder normal. Grossly normal prostate gland for the patient's age. Abdominal aorta normal in course and caliber. No lymphadenopathy. Tiny fatty right inguinal hernia. Procedure Note Alysno Pelayo MD - 04/22/2025 INDICATION: Abdominal pain, Crohn's disease TECHNIQUE: CT scan of the abdomen and pelvis obtained with a total of 90cc of Isovue-370 administered intravenously without incident. Oralcontrast was not administered. Scanner: [email or web address] 64 slice VCT Dose reduction technique: ASIR (Adaptive statistical iterativereconstruction) and/or AEC (automated exposure control) Dose: total exam DLP 523.95 mGY per cm COMPARISON: Compared to multiple prior studies most recent from 2024. FINDINGS: Lung bases are clear. Bony structures are unremarkable for the patient's age. Liver, spleen, pancreas, adrenal glands and kidneys are within normallimits. 2 mm right mid pole renal stone, unchanged. 1 mm stone in thelower pole no longer visualized. Status post cholecystectomy. Unopacified stomach unremarkable. Small bowel loops appear normal incourse and caliber. Postoperative changes with anastomotic sutures withinthe right lower quadrant and pelvis are suggestive of colectomy. No bowelwall thickening or dilatation. No free air or free fluid. Urinary bladder normal. Grossly normal prostate gland for the patient's age. Abdominal aorta normal in course and caliber. No lymphadenopathy. Tiny fatty right inguinal hernia. IMPRESSION: No small bowel wall thickening or inflammatory changes. Stable postoperative changes without bowel obstruction, free air or freefluid. No significant change from the prior study. -------- FINAL REPORT -------- Dictated By: Alyson Pelayo Dictated Date: 04/22/2025 10:52 ET Assigned Physician: Alyson Pelayo Reviewed and Electronically Signed By: Alyson Pelayo Signed Date: 04/22/2025 11:00 ET Workstation ID: [id number] Transcribed By: Self Edit Transcribed Date: 04/22/2025 10:52 ET us Ronnell WILSON IMG CT PROCEDURES Final Res ult * (ABNORMAL) CBC auto differential (04/22/2025 8:31 AM EDT) Only the most recent of2 resultswithin the time period is included. WBC 4.9 4.8 - 10.8 K/mcL LAB HEMETOLOGY METHOD 04/22/2025 9:02 AM [facility] RBC 4.20(L) 4.50 - 5.50 M/mcL LAB HEMETOLOGY METHOD 04/22/2025 9:02 AM [facility] Hemoglobin 13.0(L) 13.5 - 17.5 g/dL LAB HEMETOLOGY METHOD 04/22/2025 9:02 AM [facility] Hematocrit 38.8(L) 42.0 - 54.0 % LAB HEMETOLOGY METHOD 04/22/2025 9:02 AM [facility] MCV 91.7 79.0 - 98.0 FL LAB HEMETOLOGY METHOD 04/22/2025 9:02 AM [facility] MCH 30.7 27.0 - 32.0 pcg LAB HEMETOLOGY METHOD 04/22/2025 9:02 AM [facility] MCHC 33.5 32.0 - 37.0 g/dL LAB HEMETOLOGY METHOD 04/22/2025 9:02 AM [facility] RDW 12.6 11.0 - 15.0 % LAB HEMETOLOGY METHOD 04/22/2025 9:02 AM [facility] Platelets 168 130 - 400 K/mcL LAB HEMETOLOGY METHOD 04/22/2025 9:02 AM [facility] MPV 10.6 7.0 - 11.0 FL LAB HEMETOLOGY METHOD 04/22/2025 9:02 AM [facility] NRBC 0.0 <1.0 % LAB HEMETOLOGY METHOD 04/22/2025 9:02 AM [facility] NRBC Absolute 0.00 <0.10 K/mcL LAB HEMETOLOGY METHOD 04/22/2025 9:02 AM [facility] Neutrophils Relative 66.4 % LAB HEMETOLOGY METHOD 04/22/2025 9:02 AM [facility] Lymphocytes Relative 25.5 % LAB HEMETOLOGY METHOD 04/22/2025 9:02 AM [facility] Monocytes Relative 5.7 % LAB HEMETOLOGY METHOD 04/22/2025 9:02 AM [facility] Eosinophils Relative 1.8 % LAB HEMETOLOGY METHOD 04/22/2025 9:02 AM [facility] Basophils Relative 0.6 % LAB HEMETOLOGY METHOD 04/22/2025 9:02 AM [facility] Immature Granulocytes Relative 0.0 % LAB HEMETOLOGY METHOD 04/22/2025 9:02 AM [facility] Neutrophils Absolute 3.25 1.50 - 7.00 K/mcL LAB HEMETOLOGY METHOD 04/22/2025 9:02 AM [facility] Lymphocytes Absolute 1.25 1.00 - 5.00 K/mcL LAB HEMETOLOGY METHOD 04/22/2025 9:02 AM [facility] Monocytes Absolute 0.28 0.20 - 1.00 K/mcL LAB HEMETOLOGY METHOD 04/22/2025 9:02 AM [facility] Eosinophils Absolute 0.09 0.00 - 0.50 K/mcL LAB HEMETOLOGY METHOD 04/22/2025 9:02 AM [facility] Basophils Absolute 0.03 0.00 - 0.20 K/mcL LAB HEMETOLOGY METHOD 04/22/2025 9:02 AM EDT [facility] Immature Granulocytes Absolute 0.00 0.00 - 0.03 K/mcL LAB HEMETOLOGY METHOD 04/22/2025 9:02 AM EDT [facility] Blood Venous blood specimen / Unknown Venipuncture / Unknown 04/22/2025 8:31 AM EDT 04/22/2025 8:55 AM EDT us Ronnell WILSON LAB BLOOD ORDERABLES Final Result Performing Organization Address City/[facility]/ZIP Co de Phone Number [facility] [address] [place] [address], [place] [phone] * C-reactive protein (04/22/2025 8:31 AM EDT) C-Reactive Protein <0.29 <=0.50 mg/dL LAB CHEMISTRY METHOD 04/22/2025 10:49 AM EDT [facility] Blood Venous blood specimen / Unknown Venipuncture / Unknown 04/22/2025 8:31 AM EDT 04/22/2025 8:55 AM EDT us Ronnell WILSON LAB BLOOD ORDERABLES Final Result Performing Organization Address City/[facility]/ZIP Co de Phone Number [facility] [address] [place] [address], [place] [phone] * Lipase (04/22/2025 8:31 AM EDT) Only the most recent of2 resultswithin the time period is included. Lipase 33 13 - 75 unit/L LAB CHEMISTRY METHOD 04/22/2025 9:36 AM EDT [facility] Blood Venous blood specimen / Unknown Venipuncture / Unknown 04/22/2025 8:31 AM EDT 04/22/2025 8:55 AM EDT us Ronnell WILSON LAB BLOOD ORDERABLES Final Result [facility] [address] [place] [address], * (ABNORMAL) Comprehensive Metabolic Panel (CMP) (04/22/2025 8:31 AM EDT) Only the most recent of2 resultswithin the time period is included. Sodium 139 133 - 145 mmol/L LAB CHEMISTRY METHOD 04/22/2025 9:36 AM [facility] Potassium 4.0 3.5 - 5.5 mmol/L LAB CHEMISTRY METHOD 04/22/2025 9:36 AM [facility] Chloride 107 96 - 110 mmol/L LAB CHEMISTRY METHOD 04/22/2025 9:36 AM [facility] CO2 25 21 - 32 mmol/L LAB CHEMISTRY METHOD 04/22/2025 9:36 AM [facility] Anion Gap 7 3 - 11 LAB CHEMISTRY METHOD 04/22/2025 9:36 AM [facility] Glucose 124(H) 70 - 100 mg/dL LAB CHEMISTRY METHOD 04/22/2025 9:36 AM [facility] BUN 11 5 - 25 mg/dL LAB CHEMISTRY METHOD 04/22/2025 9:36 AM [facility] Creatinine 0.85 0.70 - 1.30 mg/dL LAB CHEMISTRY METHOD 04/22/2025 9:36 AM [facility] eGFR 109 >=60 mL/min/1. 73m2 LAB CHEMISTRY METHOD 04/22/2025 9:36 AM [facility] Comment:Calculation based on the Chronic Kidney Disease Epidemiology Collaboration (CKD-EPI) equation refit without adjustment for race. BUN/Creatinine Ratio 12.9 LAB CHEMISTRY METHOD 04/22/2025 9:36 AM [facility] Calcium 9.1 8.5 - 10.5 mg/dL LAB CHEMISTRY METHOD 04/22/2025 9:36 AM T [facility] AST (SGOT) 34 10 - 42 unit/L LAB CHEMISTRY METHOD 04/22/2025 9:36 AM EDT [facility] ALT (SGPT) 57 10 - 60 unit/L LAB CHEMISTRY METHOD 04/22/2025 9:36 AM T [facility] Alkaline Phosphatase 97 42 - 121 unit/L LAB CHEMISTRY METHOD 04/22/2025 9:36 AM EDT [facility] Total Protein 7.5 6.0 - 8.0 g/dL LAB CHEMISTRY METHOD 04/22/2025 9:36 AM T [facility] Albumin 3.6 3.2 - 5.0 g/dL LAB CHEMISTRY METHOD 04/22/2025 9:36 AM [facility] Total Bilirubin 0.7 0.0 - 1.4 mg/dL LAB CHEMISTRY METHOD 04/22/2025 9:36 AM T [facility] Blood Venous blood specimen / Unknown Venipuncture / Unknown 04/22/2025 8:31 AM EDT 04/22/2025 8:55 AM EDT us Ronnell WILSON LAB BLOOD ORDERABLES Final Result [facility] [address] [place] [address], * 12-Lead ECG (04/04/2025 10:34 AM EDT) Ventricular Rate ECG 71 BPM GEMUSE Atrial Rate 71 BPM GEMUSE P-R Interval 152 ms GEMUSE QRS Duration 84 ms GEMUSE Q-T Interval 364 ms GEMUSE QTc 395 ms GEMUSE P Wave [place] 53 degrees GEMUSE R [place] 6 degrees GEMUSE T [place] 61 degrees GEMUSE ECG Interpretation Normal sinus rhythm Normal ECG When compared with ECG of 10-FEB-2018 09:23, T wave amplitude has decreased in Anterior leads QT has shortened Confirmed by MATEO HORTON ([id number]) on 04/05/2025 11:33:00 AM GEMUSE 04/04/2025 10:3 4 AM EDT 04/05/2025 11:33 AM EDT us Fortunato Boss MD ECG ORDERABLES Final Result GEMUSE from Last 3 Months Insurance [facility] MEDIC[facility] Member Subscriber Plan / Payer (Ef fective 2019-Present) Name:JONY JULIO Relation to Subscriber:Self Name:Jony Julio Payer ID:[id number] Group ID:[id number] Type:Not on file Address: [place] [address] [address] [phone] Advance Directives * Full Code - Confirmed [...] currently active code status orders. Care Teams Staff Registered Nurse Relationship Specialty Start Date End Date Physician, Pcp Unknown PCP - General 12/17/24
--- OUTSIDE RECORDS SUMMARY | 2025-06-23 01:07 | XMS_ITS | Encounter Summary ---
Author Organization [employer] Address [address] [facility] [address] [place] [address] Care Team Providers Care Colors Custodian Name Role Phone Daina Pichardo MD Primary Care Pro vider Encounter Details Date Type Department Care Team ([facility] st Contact Info) Description 06/20/2024 Orders Only [facility] [address] [place], [place] [phone] Zarina Alarcon MD [address] [place], [place] [phone] Social History Tobacco Use Types Packs/Day Years [...] Description 07/04/2025 9:00 AM EST Clinical Support [facility] [address] [place] [address] Hanna Mark, RN [address] [place] [address] 09/06/2025 9:30 AM EST Office Visit [facility] [address] [place] [address] Daina Pichardo MD [address] [place] [address] documented as of this encounter Visit Diagnoses Not on filedocumented in this encounter Additional Health Concerns Assessment Noted Time PHQ-9 Depression Total Score: 3 02/16/20 23 10:56 AM EDT documented as of this encounter Care Teams Colors Custodian Relationship Specialty Start Date End Date Daina Pichardo MD [address] [place] [phone] PCP - General Internal Medicine 12/16/22 documented as of this encounter
--- OUTSIDE RECORDS SUMMARY | 2025-06-23 01:08 | XMS_ITS | Encounter Summary ---
Author Organization [employer] Address [address] [place] [phone] Care Team Providers Care Materials Planner/Production Planner Name Role Phone Daina Pichardo MD Primary Care Pro vider Reason for Visit * Reason Onset Date Comments Med Refill 10/11/2023 Encounter Details Date Type Department Care Team (Late st Contact Info) Description 10/11/2023 Refill [facility] [address] [place], [place] [phone] Daina Pichardo MD [address] [place], [place] [phone] Anxiety Social History Tobacco Use Types Packs/Day [...] Description 07/04/2025 9:00 AM EST Clinical Support [facility] [address] [place] [address] Hanna Mark, RN [address] [place] [address] 09/06/2025 9:30 AM EST Office Visit [facility] [address] [place] [address] Daina Pichardo MD [address] [place] [phone] documented as of this encounter Visit Diagnoses Diagnosis Anxiety Anxiety state, unspecified documented in this encounter Additional Health Concerns Assessment Noted Time PHQ-9 Depression Total Score: 3 02/16/20 10:56 AM EDT documented as of this encounter Care Teams Materials Planner/Production Planner Relationship Specialty Start Date End Date Daina Pichardo MD [address] [place] [phone] PCP - General Internal Medicine 12/16/22 documented as of this encounter
--- OUTSIDE RECORDS SUMMARY | 2025-06-23 01:08 | XMS_ITS | Encounter Summary ---
Author Organization [employer] Address [address] [facility] 7[address] [place] [address] Care Team Providers Care Interior Mechanic Name Role Phone Daina Pichardo MD Primary Care Pro vider Encounter Details Date Type Department Care Team ([facility] st Contact Info) Description 09/06/2024 Orders Only [facility] [address] [place], [place] [phone] Zarina Alarcon MD [address] [place], [place] [phone] Social History Tobacco Use Types Packs/Day Years [...] 9:00 AM EST Clinical Support [facility] [address] [place] [address] Hanna Mark, RN [address] [place] [address] 09/06/2025 9:30 AM EST Office Visit [facility] [address] [place] [address] Daina Pichardo MD [address] [place] [address] documented as of this encounter Visit Diagnoses Not on filedocumented in this encounter Additional Health Concerns Assessment Noted Time PHQ-9 Depression Total Score: 3 02/16/20 23 10:56 AM EDT documented as of this encounter Care Teams Interior Mechanic Relationship Specialty Start Date End Date Daina Pichardo MD [address] [place] [phone] PCP - General Internal Medicine 12/16/22 documented as of this encounter
--- OUTSIDE RECORDS SUMMARY | 2025-06-23 01:08 | XMS_ITS | Encounter Summary ---
Author Organization [employer] Address [address] [facility] 7 [place] [address] Care Team Providers Care Adjunct English Instructor Name Role Phone Daina Pichardo MD Primary Care Pro vider Encounter Details Date Type Department Care Team (Late st Contact Info) Description 05/08/2025 Orders Only [facility] [address] [place], [place] [phone] Provider, MD Real Social History Tobacco Use [...] 9:00 AM EST Clinical Support [facility] [address] [place] [address] Hanna Mark RN [address] [place], [place] [phone] 09/06/2025 9:30 AM EST Office Visit [facility] [address] [place], [place] [phone] Daina Pichardo MD [address] [place] [phone] documented as of this encounter Procedures Procedure Name Priority Date/Time Associated Diagnosis Comments EGD Routine 05/08/2025 1:50 PM EDT documented in this encounter Results * EGD (05/08/2025 1:50 PM EDT) Anatomical Region Laterality Modality Endoscopy us Historical Provider ENDOSCOPY PROCEDURE ORDER EUGENE Final Result documented in this encounter Visit Diagnoses Not on filedocumented in this encounter Additional Health Concerns Assessment Noted Time PHQ-9 Depression Total Score: 0 11/01/19 25 9:19 AM EDT documented as of this encounter Care Teams Adjunct English Instructor Relationship Specialty Start Date End Date Daina Pichardo MD [address] [place] [phone] PCP - General Internal Medicine 12/16/22 documented as of this encounter
--- OUTSIDE RECORDS SUMMARY | 2025-06-23 01:08 | XMS_ITS | Encounter Summary ---
Author Organization [employer] Address [address] [place] [address] [place] [address] Care Team Providers Care Script Artist Name Role Phone Daina Pichardo MD Primary Care Pro vider Reason for Visit * Reason Onset Date Comments Med Refill 01/15/2025 Encounter Details Date Type Department Care Team (Late st Contact Info) Description 01/15/2025 Refill [facility] MED & PEDS [address] [place] [address] Daina Pichardo MD 230 [place] [address] Insomnia, unspecified type Social History Tobacco Use [...] Description 07/04/2025 9:00 AM EST Clinical Support [facility] MED & PEDS 505 [place] [address] Hanna Mark, RN 505 [place] [address] 09/06/2025 9:30 AM EST Office Visit [facility] MEDICINE [address] [place] [address] Daina Pichardo MD [address] [place] [address] documented as of this encounter Visit Diagnoses Diagnosis Insomnia, unspecified type documented in this encounter Additional Health Concerns Assessment Noted Time PHQ-9 Depression Total Score: 0 11/01/19 25 9:19 AM EDT documented as of this encounter Care Teams Script Artist Relationship Specialty Start Date End Date Daina Pichardo MD [address] [place] [address] PCP - General Internal Medicine 12/16/22 documented as of this encounter
--- OUTSIDE RECORDS SUMMARY | 2025-06-23 01:08 | XMS_ITS | Encounter Summary ---
Author Organization [employer] Address [address] [place] [address] Care Team Providers Care Surveyor Helper Name Role Phone Estephania Borrero Primary Care Provider Daina Whitfield MD Primary Care Pro vider Encounter Details Date Type Department Care Team (Late st Contact Info) Description 09/14/2022 Telephone [facility] MEDICINE [address] [place] [address] Estephania Borrero FNP Social History Tobacco Use Types Packs/Day Years [...] Description 07/04/2025 9:00 AM EST Clinical Support [facility] MED & PEDS 505 [place] [address] Hanna Mark, JULIANN 505 [place] [address] 09/06/2025 9:30 AM EST Office Visit [facility] MEDICINE [address] [place] [address] Daina Pichardo MD [address] [place] [address] documented as of this encounter Visit Diagnoses Not on filedocumented in this encounter Additional Health Concerns Assessment Noted Time PHQ-9 Depression Total Score: 0 08/13/19 23 1:02 PM EST documented as of this encounter Care Teams Surveyor Helper Relationship Specialty Start Date End Date Estephania Borrero FNP PCP - General Family Medicine 03/06/22 12/15/22 Daina Pichardo MD [address] [place] [address] PCP - General Internal Medicine 12/16/22 documented as of this encounter
--- OUTSIDE RECORDS SUMMARY | 2025-06-23 01:08 | XMS_ITS | Encounter Summary ---
Author Organization [employer] Address [address] [place] [address] Care Team Providers Care Finisher Map And Chart Name Role Phone Daina Pichardo MD Primary Care Pro vider Reason for Visit * Reason Onset Date Comments Med Refill 02/25/2024 Encounter Details Date Type Department Care Team (Late st Contact Info) Description 02/25/2024 Refill [facility] MEDICINE [address] [place], [place] [phone] Daina Pichardo MD 230 [place] [address] Social History Tobacco Use Types Packs/Day Years [...] Description 07/04/2025 9:00 AM EST Clinical Support [facility] MED & PEDS 505 [place] [address] Hanna Mark, RN 505 [place] [address] 09/06/2025 9:30 AM EST Office Visit [facility] MEDICINE [address] [place] [address] Daina Pichardo MD [address] [place] [address] documented as of this encounter Visit Diagnoses Not on filedocumented in this encounter Additional Health Concerns Assessment Noted Time PHQ-9 Depression Total Score: 3 02/16/20 10:56 AM EDT documented as of this encounter Care Teams Finisher Map And Chart Relationship Specialty Start Date End Date Daina Pichardo MD [address] [place] [address] PCP - General Internal Medicine 12/16/22 documented as of this encounter
--- OUTSIDE RECORDS SUMMARY | 2025-06-23 01:08 | XMS_ITS | Encounter Summary ---
Author Organization [employer] Address [address] [facility] 7 [place] [address] Care Team Providers Care Sill Worker Name Role Phone Estephania Borrero ONCOLOGY ACCOUNT SPECIALIST Primary Care Provider Daina Whitfield MD Primary Care Pro vider Reason for Visit * Reason Comments Med Refill Encounter Details Date Type Department Care Team ([facility] Contact Info) Description 10/14/2022 Refill [facility] MEDICINE 230 [place] [address] Estephania Borrero, WALLY Crohn's disease with complication, unspecified gastrointestinal tract [...] Upcoming Encounters Date Type Department Care Team ([facility] Contact Info) Description 07/04/2025 9:00 AM EST Clinical Support [facility] CHC MED & PEDS 505 [place] [address] Hanna Mark, JULIANN [address] [place] [address] 09/06/2025 9:30 AM EST Office Visit [facility] MEDICINE [address] [place] [address] Daina Pichardo MD [address] [place] [address] [phone] documented as of this encounter Visit Diagnoses Diagnosis Crohn's disease with complication, unspecified gastrointestinal tract location (CMS/HCC) (HCC) Insomnia, unspecified type documented in this encounter Additional Health Concerns Assessment Noted Time PHQ-9 Depression Total Score: 0 08/13/19 23 1:02 PM EST documented as of this encounter Care Teams Sill Worker Relationship Specialty Start Date End Date Estephania Borrero FNP PCP - General Family Medicine 03/06/22 12/15/22 Daina Pichardo MD [address] [place] [address] [phone] PCP - General Internal Medicine 12/16/22 documented as of this encounter
--- OUTSIDE RECORDS SUMMARY | 2025-06-23 01:08 | XMS_ITS | Encounter Summary ---
Author Organization [employer] Address [address] [place] [address] 7 [place] [address] Care Team Providers Care Remelt Furnace Expediter Name Role Phone Estephania Borrero CHILDBIRTH AND INFANT CARE TEACHER Primary Care Provider Daina Whitfiled MD Primary Care Pro vider Reason for Visit * Reason Comments Med Refill Encounter Details Date Type Department Care Team (Late st Contact Info) Description 09/15/2022 Refill [facility] MEDICINE 230 [place] [address] Estephania Borrero, WALLY Crohn's disease with complication, [...] 9:00 AM EST Clinical Support [facility] CHC MED & PEDS 505 [place] [address] Hanna Mark, RN 505 [place] [address] 09/06/2025 9:30 AM EST Office Visit [facility] MEDICINE 230 [place] [address] Daina Pichardo MD 230 [place], [place] [phone] documented as of this encounter Visit Diagnoses Diagnosis Crohn's disease with complication, unspecified gastrointestinal tract location (CMS/HCC) (HCC) documented in this encounter Additional Health Concerns Assessment Noted Time PHQ-9 Depression Total Score: 0 08/13/19 1:02 PM EST documented as of this encounter Care Teams Remelt Furnace Expediter Relationship Specialty Start Date End Date Estephania Borrero FNP PCP - General Family Medicine 03/06/22 12/15/22 Daina Pichardo MD 230 [place] [address] PCP - General Internal Medicine 12/16/22 documented as of this encounter
--- OUTSIDE RECORDS SUMMARY | 2025-06-23 01:08 | XMS_ITS | Encounter Summary ---
Author Organization [employer] Address [address] [facility] 7 [place] [address] Care Team Providers Care Telegraph Printer Mechanic Name Role Phone Daina Pichardo MD Primary Care Pro vider Reason for Visit * Reason Onset Date Comments Med Refill 06/22/2025 Encounter Details Date Type Department Care Team (Late st Contact Info) Description 06/21/2025 Refill [facility] MEDICINE 230 [place] [address] Zarina Alarcon MD 230 [place] [address] Pain Social History Tobacco Use Types Packs/Day [...] Description 07/04/2025 9:00 AM EST Clinical Support [facility] CHC MED & PEDS 505 [place] [address] Hanna Mark, RN 505 [place] [address] 09/06/2025 9:30 AM EST Office Visit [facility] MEDICINE [address] [place] [address] Daina Pichardo MD [address] [place] [address] documented as of this encounter Visit Diagnoses Diagnosis Pain Generalized pain documented in this encounter Additional Health Concerns Assessment Noted Time PHQ-9 Depression Total Score: 0 11/01/19 25 9:19 AM EDT documented as of this encounter Care Teams Telegraph Printer Mechanic Relationship Specialty Start Date End Date Daina Pichardo MD [address] [place] [address] PCP - General Internal Medicine 12/16/22 documented as of this encounter
--- OUTSIDE RECORDS SUMMARY | 2025-06-23 01:08 | XMS_ITS | Encounter Summary ---
Author Organization [employer] Address [address] [place] [address] Care Team Providers Care Back End Architect Name Role Phone Daina Pichardo MD Primary Care Pro vider Reason for Visit * Reason Onset Date Comments Med Refill 02/25/2024 Encounter Details Date Type Department Care Team (Late st Contact Info) Description 02/25/2024 Refill [facility] MEDICINE 230 [place], [place] [phone] Daina Pichardo MD 230 [place] [address] Social History Tobacco Use Types Packs/Day Years [...] Description 07/04/2025 9:00 AM EST Clinical Support [facility] CHC MED & PEDS 505 [place] [address] Hanna Mark, RN 505 [place] [address] 09/06/2025 9:30 AM EST Office Visit [facility] MEDICINE 230 [place] [address] Daina Pichardo MD [address] [place] [address] documented as of this encounter Visit Diagnoses Not on filedocumented in this encounter Additional Health Concerns Assessment Noted Time PHQ-9 Depression Total Score: 3 02/16/20 10:56 AM EDT documented as of this encounter Care Teams Back End Architect Relationship Specialty Start Date End Date Daina Pichardo MD [address] [place] [address] PCP - General Internal Medicine 12/16/22 documented as of this encounter
--- OUTSIDE RECORDS SUMMARY | 2025-06-23 01:08 | XMS_ITS | Encounter Summary ---
Author Organization [employer] Address [address] [place] [address] Care Team Providers Care Job Cost Estimator Name Role Phone Daina Pichardo MD Primary Care Pro vider Reason for Visit * Reason Onset Date Comments Med Refill 04/11/2025 Encounter Details Date Type Department Care Team (Late st Contact Info) Description 04/11/2025 Refill [facility] MEDICINE 230 [place], [place] [phone] Daina Pichardo MD 230 [place] [address] Anxiety Social History Tobacco Use Types Packs/Day [...] AM EDT documented as of this encounter Functional Status * Over the last 2 weeks, how often have you been bothered by any of the following problems? Question Answer Date of Assessment Author Feeling nervous, anxious, or on edge 2 04/12/2025 9:26 AM EDT Hanna Mark RN Not being able to stop or co ntrol worrying 0 04/12/2025 9:26 AM EDT Hanna Mark RN Worrying too much about diff erent things 0 04/12/2025 9:26 AM EDT Hanna Mark RN Trouble relaxing 2 04/12/2025 9:26 AM EDT M Hanna Salinas RN Being so restless that it is hard to sit still 2 04/12/2025 9:26 AM EDT Hanna Mark RN Becoming easily annoyed or irritable 2 04/12/2025 9:26 AM EDT Hanna Mark RN Feeling afraid as if somethi ng awful might happen 0 04/12/2025 9:26 AM EDT Hanna Mark RN LILIYA-7 Total Score 8 04/12/2025 9:26 AM EDT Hanna Mark RN documented as of this encounter Plan of Treatment Upcoming Encounters Date Type Department Care Team (Late st Contact Info) Description 07/04/2025 9:00 AM EST Clinical Support [facility] CHC MED & PEDS 505 [place] [address] Hanna Mark, RN 505 [place] [address] 09/06/2025 9:30 AM EST Office Visit [facility] MEDICINE 230 [place] [address] Daina Pichardo MD [address] [place] [address] documented as of this encounter Visit Diagnoses Diagnosis Anxiety Anxiety state, unspecified documented in this encounter Additional Health Concerns Assessment Noted Time PHQ-9 Depression Total Score: 0 11/01/19 25 9:19 AM EDT documented as of this encounter Care Teams Job Cost Estimator Relationship Specialty Start Date End Date Daina Pichardo MD [address] [place] [address] PCP - General Internal Medicine 12/16/22 documented as of this encounter
--- OUTSIDE RECORDS SUMMARY | 2025-06-23 01:08 | XMS_ITS | Encounter Summary ---
Author Organization [employer] Address [address] [place] [address] Care Team Providers Care Bobbin Marker Name Role Phone Daina Pichardo MD Primary Care Pro vider Reason for Visit * Reason Onset Date Comments Med Refill 02/22/2024 Encounter Details Date Type Department Care Team (Late st Contact Info) Description 02/22/2024 Refill [facility] MEDICINE 230 [place], [place] [phone] Daina Pichardo MD 230 [place] [address] Social History Tobacco Use Types Packs/Day Years [...] Description 07/04/2025 9:00 AM EST Clinical Support [facility] CHC MED & PEDS 505 [place] [address] Hanna Mark, RN 505 [place] [address] 09/06/2025 9:30 AM EST Office Visit [facility] MEDICINE 230 [place] [address] Daina Pichardo MD [address] [place] [address] documented as of this encounter Visit Diagnoses Not on filedocumented in this encounter Additional Health Concerns Assessment Noted Time PHQ-9 Depression Total Score: 3 02/16/20 10:56 AM EDT documented as of this encounter Care Teams Bobbin Marker Relationship Specialty Start Date End Date Daina Pichardo MD [address] [place] [address] PCP - General Internal Medicine 12/16/22 documented as of this encounter
--- OUTSIDE RECORDS SUMMARY | 2025-06-23 01:08 | XMS_ITS | Encounter Summary ---
Author Organization [employer] Address [address] [place] [address] Care Team Providers Care Sugar House Supervisor Name Role Phone Daina Pichardo MD Primary Care Pro vider Reason for Visit * Reason Onset Date Comments Med Refill 02/08/2023 Encounter Details Date Type Department Care Team (Late st Contact Info) Description 02/08/2023 Refill [facility] MEDICINE 230 [place] [address] Daina Pichardo MD 230 [place] [address] Complications of intestinal pouch (CMS/HCC); Crohn's disease [...] Description 07/04/2025 9:00 AM EST Clinical Support [facility] CHC MED & PEDS 505 [place], [place] [phone] Hanna Mark, JULIANN 505 [place] [address] 09/06/2025 9:30 AM EST Office Visit [facility] MEDICINE 230 [place] [address] Daina Pichardo MD 230 [place] [address] documented as of this encounter Visit Diagnoses Diagnosis Complications of intestinal pouch (HCC) Crohn's disease of small intestine with complication (HCC) documented in this encounter Additional Health Concerns Assessment Noted Time PHQ-9 Depression Total Score: 0 08/13/19 23 1:02 PM EST documented as of this encounter Care Teams Sugar House Supervisor Relationship Specialty Start Date End Date Daina Pichardo MD 230 [place] [address] PCP - General Internal Medicine 12/16/22 documented as of this encounter
--- OUTSIDE RECORDS SUMMARY | 2025-06-23 01:08 | XMS_ITS | Encounter Summary ---
Author Organization [employer] Address [address] [place] [address] Care Team Providers Care Information Systems Security Officer Name Role Phone Dania Pichardo MD Primary Care Pro vider Reason for Visit * Reason Comments Med Refill Encounter Details Date Type Department Care Team ([facility] st Contact Info) Description 09/10/2023 Refill [facility] MEDICINE 230 [place], [place] [phone] Daina Pichardo MD [address] [employer] [place], [place] [phone] Insomnia, unspecified type; Anxiety Social History Tobacco [...] Description 07/04/2025 9:00 AM EST Clinical Support [facility] CHC MED & PEDS 505 [place] [address] Hanna Mark, RN 505 [place] [address] 09/06/2025 9:30 AM EST Office Visit [facility] MEDICINE 230 [place] [address] Daina Pichardo MD [address] [place] [address] documented as of this encounter Visit Diagnoses Diagnosis Insomnia, unspecified type Anxiety Anxiety state, unspecified documented in this encounter Additional Health Concerns Assessment Noted Time PHQ-9 Depression Total Score: 3 02/16/20 23 10:56 AM EDT documented as of this encounter Care Teams Information Systems Security Officer Relationship Specialty Start Date End Date Daina Pichardo MD [address] [place] [address] PCP - General Internal Medicine 12/16/22 documented as of this encounter
--- OUTSIDE RECORDS SUMMARY | 2025-06-23 01:08 | XMS_ITS | Encounter Summary ---
Author Organization [employer] Address [address] [place] [address] Care Team Providers Care Tribal Delegate Name Role Phone Daina Pichardo MD Primary Care Pro vider Reason for Visit * Reason Onset Date Comments Med Refill 10/11/2023 Encounter Details Date Type Department Care Team (Late st Contact Info) Description 10/11/2023 Telephone [facility] MEDICINE 230 [place], [place] [phone] Daina Pichardo MD 230 [place] [address] Med Refill Social History Tobacco Use Types [...] immediate release tablet To be sent to: [facility]/pharmacy #[id number] - [address] documented in this encounter Plan of Treatment Upcoming Encounters Date Type Department Care Team (Late st Contact Info) Description 07/04/2025 9:00 AM EST Clinical Support [facility] CHC MED & PEDS 505 [place] [address] Hanna Mark RN 505 [place] [address] 09/06/2025 9:30 AM EST Office Visit [facility] MEDICINE 230 [place] [address] Daina Pichardo MD [address] [place] [address] documented as of this encounter Visit Diagnoses Not on filedocumented in this encounter Additional Health Concerns Assessment Noted Time PHQ-9 Depression Total Score: 3 02/16/20 23 10:56 AM EDT documented as of this encounter Care Teams Tribal Delegate Relationship Specialty Start Date End Date Daina Pichardo MD [address] [place] [address] PCP - General Internal Medicine 12/16/22 documented as of this encounter
--- OUTSIDE RECORDS SUMMARY | 2025-06-23 01:08 | XMS_ITS | Encounter Summary ---
Author Organization [employer] Address [address] [place] [address] 7 [place] [address] Care Team Providers Care Lock And Dam Repairer Name Role Phone Estephania Borrero Primary Care Provider Daina Whitfield MD Primary Care Pro vider Reason for Visit * Reason Comments Med Refill Encounter Details Date Type Department Care Team ([facility] Contact Info) Description 08/18/2022 Refill [facility] MEDICINE 230 [place] [address] Estephania Borrero FNP Insomnia, unspecified type Social History Tobacco Use [...] Department Care Team (Late Contact Info) Description 07/04/2025 9:00 AM EST Clinical Support [facility] CHC MED & PEDS [address] [place] [address] Hanna Mark, JULIANN [address] [place] [address] 09/06/2025 9:30 AM EST Office Visit [facility] MEDICINE [address] [place] [address] [phone] Daina Pichardo MD [address] [place] [address] documented as of this encounter Visit Diagnoses Diagnosis Insomnia, unspecified type documented in this encounter Additional Health Concerns Assessment Noted Time PHQ-9 Depression Total Score: 0 08/13/19 1:02 PM EST documented as of this encounter Care Teams Lock And Dam Repairer Relationship Specialty Start Date End Date Estephania Borrero FNP PCP - General Family Medicine 03/06/22 12/15/22 Daina Pichardo MD [address] [place] [address] [phone] PCP - General Internal Medicine 12/16/22 documented as of this encounter
--- OUTSIDE RECORDS SUMMARY | 2025-06-23 01:08 | XMS_ITS | Encounter Summary ---
Author Organization [facility] Address [address] [place] [address] Care Team Providers Care Information Systems Specialist Name Role Phone Daina Pichardo Primary Care Provider [phone] Encounter Details Date Type Department Care Team (Late st Contact Info) Description 05/31/2025 myChart Message [facility] [address] [place] [address] Mychart, Generic Provider [address] [place], [place] [phone] Humira 40mg/0.4mL Pen refill Social History Tobacco Use Types Packs/Day Years [...] Info) Description 10/17/2025 10:30 AM EDT Follow-Up [facility] [address] [place] [address] Electric Meter Tester: Lesli Solis documented as of this encounter Goals Goal Patient Goal Type Associated Problems Recent Progress Patient-Stated? Author Autogenerat ed Goal Care Plan Autogenerated Problem No Gaimari, Silva C., DIE SINKING MACHINE OPERATOR documented as of this encounter Visit Diagnoses Not on filedocumented in this encounter Additional Health Concerns Active Problems Noted Date Diagnosed Date Autogenerated Problem 03/20/2025 documented as of this encounter Care Teams Information Systems Specialist Relationship Specialty Start Date End Date Daina Pichardo PCP - General 10/12/23 documented as of this encounter
--- OUTSIDE RECORDS SUMMARY | 2025-06-23 01:08 | XMS_ITS | Encounter Summary ---
Author Organization [employer] Address [address] [facility] 7 [place] [address] Care Team Providers Care Timing Inspector Name Role Phone Daina Pichardo MD Primary Care Pro vider Reason for Visit * Reason Onset Date Comments Med Refill 06/23/2025 Encounter Details Date Type Department Care Team (Late st Contact Info) Description 06/23/2025 Refill [facility] MEDICINE [address] [place] [address] Zarina Alarcon MD 230 [place] [address] Pain Social History Tobacco Use Types Packs/Day [...] Description 07/04/2025 9:00 AM EST Clinical Support [facility] CHC MED & PEDS 505 [place] [address] Hanna Mark, RN 505 [place] [address] 09/06/2025 9:30 AM EST Office Visit [facility] MEDICINE [address] [place] [address] Daina Pichardo MD [address] [place] [address] documented as of this encounter Visit Diagnoses Diagnosis Pain Generalized pain documented in this encounter Additional Health Concerns Assessment Noted Time PHQ-9 Depression Total Score: 0 11/01/19 25 9:19 AM EDT documented as of this encounter Care Teams Timing Inspector Relationship Specialty Start Date End Date Daina Pichardo MD [address] [place] [address] PCP - General Internal Medicine 12/16/22 documented as of this encounter
--- OUTSIDE RECORDS SUMMARY | 2025-06-23 01:08 | XMS_ITS | Encounter Summary ---
Author Organization [employer] Address [address] [place] [address] Care Team Providers Care Truck Assembler Name Role Phone Daina Pichardo MD Primary Care Pro vider Reason for Visit * Reason Onset Date Comments Appointment Request 11/16/2024 Encounter Details Date Type Department Care Team ([facility] st Contact Info) Description 11/16/2024 Telephone [facility]INE [address] [place] [address] Daina Pichardo MD [address] [place] [address] Appointment Request Social History Tobacco Use Types Packs/Day Years [...] encounter Miscellaneous Notes * Telephone Encounter - Maricarmen Ny - 11/16/2024 9:15 AM EDT Tc from pt stating a family member yesterday and needs to reschedule 11/16 appointment with Hanna. documented in this encounter Plan of Treatment Upcoming Encounters Date Type Department Care Team (Late st Contact Info) Description 07/04/2025 9:00 AM EST Clinical Support [facility]S [address] [place] [address] Hanna Mark RN 505 [place] [address] 09/06/2025 9:30 AM EST Office Visit [facility] [address] [place], [place] [phone] Dania Pichardo MD [address] [place] [address] documented as of this encounter Visit Diagnoses Not on filedocumented in this encounter Additional Health Concerns Assessment Noted Time PHQ-9 Depression Total Score: 0 11/01/19 25 9:19 AM EDT documented as of this encounter Care Teams Truck Assembler Relationship Specialty Start Date End Date Daina Pichardo MD [address] [place] [address] PCP - General Internal Medicine 12/16/22 documented as of this encounter
--- OUTSIDE RECORDS SUMMARY | 2025-06-23 01:08 | XMS_ITS | Encounter Summary ---
Author Organization [employer] Address [address] [place] [address] Care Team Providers Care Credit Union Field Examiner Name Role Phone Daina Pichardo MD Primary Care Pro vider Reason for Visit * Reason Onset Date Comments Med Refill 01/19/2023 Encounter Details Date Type Department Care Team (Late st Contact Info) Description 01/19/2023 Refill [facility] MED[facility]INE 230 [place] [address] Daina Pichardo MD [address] [place] [address] Complications of intestinal pouch (CMS/HCC); Crohn's disease [...] Description 07/04/2025 9:00 AM EST Clinical Support [facility]EDS 505 [place], [place] [phone] Hanna Mark, JULIANN 505 [place] [address] 09/06/2025 9:30 AM EST Office Visit [facility] 230 [place] [address] Daina Pichardo MD [address] [place] [address] documented as of this encounter Visit Diagnoses Diagnosis 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
--- OUTSIDE RECORDS SUMMARY | 2025-06-23 01:08 | XMS_ITS | Encounter Summary ---
Author Organization [employer] Address [address] [place] [address] Care Team Providers Care Healthcare Consulting Manager Name Role Phone Estephania Borrero Primary Care Provider Daina Whitfield MD Primary Care Pro vider Encounter Details Date Type Department Care Team (Late st Contact Info) Description 09/14/2022 Telephone [facility] [address] [place] [address] Estephania Borrero FNP Social History Tobacco Use [...] Description 07/04/2025 9:00 AM EST Clinical Support [facility] [address] [place] [address] Hanna Mark, JULIANN 505 [place] [address] 09/06/2025 9:30 AM EST Office Visit [facility] [address] [place] [address] Daina Pichardo MD 230 [place] [address] documented as of this encounter Visit Diagnoses Not on filedocumented in this encounter Additional Health Concerns Assessment Noted Time PHQ-9 Depression Total Score: 0 08/13/19 23 1:02 PM EST documented as of this encounter Care Teams Healthcare Consulting Manager Relationship Specialty Start Date End Date Estephania Borrero FNP PCP - General Family Medicine 03/06/22 12/15/22 Diana Pichardo MD 230 [place] [address] PCP - General Internal Medicine 12/16/22 documented as of this encounter
--- OUTSIDE RECORDS SUMMARY | 2025-06-23 01:08 | XMS_ITS | Encounter Summary ---
Author Organization [employer] Address [address] [place] [address] Care Team Providers Care Cardiovascular Technician Name Role Phone Daina Pichardo MD Primary Care Pro vider Reason for Visit * Reason Onset Date Comments Appointment Request 12/13/2024 Encounter Details Date Type Department Care Team ([facility] st Contact Info) Description 12/13/2024 Telephone [facility] MED[facility]INE 230 [place] [address] Daina Pichardo MD [address] [place] [address] Appointment Request Social History Tobacco Use Types [...] * Telephone Encounter - Waldo Ball - 12/13/2024 2:32 PM EDT Tc from pt requesting to reschedule STUDENT SERVICES DIRECTOR visit. Please contact pt at [phone]. (Bulgarian Speaker) documented in this encounter Plan of Treatment Upcoming Encounters Date Type Department Care Team (Late st Contact Info) Description 07/04/2025 9:00 AM EST Clinical Support [facility]EDS 505 [place] [address] Hanna Mark RN 505 [place] [address] 09/06/2025 9:30 AM EST Office Visit [facility] MEDICINE [address] [place] [address] Daina Pichardo MD [address] [place], [place] [phone] documented as of this encounter Visit Diagnoses Not on filedocumented in this encounter Additional Health Concerns Assessment Noted Time PHQ-9 Depression Total Score: 0 11/01/19 25 9:19 AM EDT documented as of this encounter Care Teams Cardiovascular Technician Relationship Specialty Start Date End Date Daina Pichardo MD [address] [place] [address] PCP - General Internal Medicine 12/16/22 documented as of this encounter
--- OUTSIDE RECORDS SUMMARY | 2025-06-23 01:08 | XMS_ITS | Encounter Summary ---
Author Organization [facility] Address [address] [place] [address] Care Team Providers Care Dental Amalgam Processor Name Role Phone Ken Quinn Yuliana Primary Care Provider [phone]- [phone] Encounter Details Date Type Department Care Team (Late Contact Info) Description 05/12/2025 Results Follow-Up [facility] [address] [place] [address] Seed Laboratory Assistant: Doris Rubio MD [address] [place] [address] [phone] Social History Tobacco Use Types Packs/Day Years [...] Info) Description 10/17/2025 10:30 AM EDT Follow-Up [facility] [address] [place] [address] [phone] Seed Laboratory Assistant: Lesli Solis documented as of this encounter Goals Goal Patient Goal Type Associated Problems Recent Progress Patient-Stated? Author Autogenerat ed Goal Care Plan Autogenerated Problem No Silva Elias INFLATED PAD BUFFER documented as of this encounter Visit Diagnoses Not on filedocumented in this encounter Additional Health Concerns Active Problems Noted Date Diagnosed Date Autogenerated Problem 03/20/2025 documented as of this encounter Care Teams Dental Amalgam Processor Relationship Specialty Start Date End Date Daina Pichardo PCP - General 10/12/23 documented as of this encounter
--- OUTSIDE RECORDS SUMMARY | 2025-06-23 01:08 | XMS_ITS | Encounter Summary ---
Author Organization [employer] Address [address] [place] [address] Care Team Providers Care Guest Service Host Name Role Phone Daina Pichardo MD Primary Care Pro vider Reason for Visit * Reason Comments Med Change Request Encounter Details Date Type Department Care Team ([facility] st Contact Info) Description 09/28/2023 Refill [facility] MEDICINE [address] [place], [place] [phone] Daina Pichardo MD 230 [place], [place] [phone] Social History Tobacco Use Types Packs/Day Years [...] Author Feeling nervous, anxious, or on edge 1 09/28/2023 10:44 AM EDT Nell Tejeda [place] Not being able to stop or co ntrol worrying 1 09/28/2023 10:44 AM EDT Nell Tejeda [place] Worrying too much about diff erent things 0 09/28/2023 10:44 AM EDT Nell Tejeda MA Trouble relaxing 1 09/28/2023 10:44 AM JAZT Nell Tejeda [place] Being so restless that it is hard to sit still 1 09/28/2023 10:44 AM EDT Nell Tejeda MA Becoming easily annoyed or irritable 1 09/28/2023 10:44 AM EDT Nell Tejeda [place] Feeling afraid as if somethi ng awful might happen 0 09/28/2023 10:44 AM EDT Nell Tejeda MA LILIYA-7 Total Score 5 09/28/2023 10:44 AM JAZT Nell Tejeda [place] documented as of this encounter Miscellaneous Notes * Telephone Encounter - Daina Quinn MD - 09/28/2023 7:04 PM EDT Sent new precription documented in this encounter Plan of Treatment Upcoming Encounters Date Type Department Care Team (Late st Contact Info) Description 07/04/2025 9:00 AM EST Clinical Support [facility] MED & PEDS [address] [place] [address] Hanna Mark, RN 505 [place] [address] 09/06/2025 9:30 AM EST Office Visit [facility] MEDICINE 230 [place] [address] Daina Pichardo MD [address] [place] [address] documented as of this encounter Visit Diagnoses Not on filedocumented in this encounter Additional Health Concerns Assessment Noted Time PHQ-9 Depression Total Score: 3 02/16/20 10:56 AM EDT documented as of this encounter Care Teams Guest Service Host Relationship Specialty Start Date End Date Daina Pichardo MD [address] [place] [address] PCP - General Internal Medicine 12/16/22 documented as of this encounter
--- OUTSIDE RECORDS SUMMARY | 2025-06-23 01:08 | XMS_ITS | Encounter Summary ---
Author Organization [employer] Address [address] [place] [address] Care Team Providers Care J2Ee Java Developer Name Role Phone Daina Pichardo MD Primary Care Pro vider Reason for Visit * Reason Onset Date Comments Med Refill 02/16/2024 Encounter Details Date Type Department Care Team (Late st Contact Info) Description 02/16/2024 Telephone [facility] MEDICINE 230 [place], [place] [phone] Daina Pichardo MD 230 [place] [address] Med Refill Social History Tobacco Use Types [...] immediate release tablet To be sent to: [facility]/pharmacy #[id number] documented in this encounter Plan of Treatment Upcoming Encounters Date Type Department Care Team (Late st Contact Info) Description 07/04/2025 9:00 AM EST Clinical Support [facility] MED [facility] PEDS [address] [place] [address] Hanna Mark, JULIANN 505 [place] [address] 09/06/2025 9:30 AM EST Office Visit [facility] MEDICINE 230 [place] [address] Daina Pichardo MD [address] [place] [address] documented as of this encounter Visit Diagnoses Not on filedocumented in this encounter Additional Health Concerns Assessment Noted Time PHQ-9 Depression Total Score: 3 02/16/20 23 10:56 AM EDT documented as of this encounter Care Teams J2Ee Java Developer Relationship Specialty Start Date End Date Daina Pichardo MD [address] [place] [address] PCP - General Internal Medicine 12/16/22 documented as of this encounter
--- OUTSIDE RECORDS SUMMARY | 2025-06-23 01:08 | XMS_ITS | Encounter Summary ---
Author Organization [employer] Address [address] [place] [address] Care Team Providers Care Microsoft Net Developer Name Role Phone Daina Pichardo MD Primary Care Pro vider Reason for Visit * Reason Onset Date Comments Med Refill 03/10/2024 Encounter Details Date Type Department Care Team (Late st Contact Info) Description 03/10/2024 Telephone [facility] MEDICINE [address] [place], [place] [phone] Daina Pichardo MD 230 [place] [address] Med Refill Social History Tobacco Use Types [...] immediate release tablet To be sent to: [facility]/pharmacy #[id number] documented in this encounter Plan of Treatment Upcoming Encounters Date Type Department Care Team (Late st Contact Info) Description 07/04/2025 9:00 AM EST Clinical Support [facility] MED [facility] PEDS [address] [place] [address] Hanna Mark, JULIANN 505 [place] [address] 09/06/2025 9:30 AM EST Office Visit [facility] MEDICINE 230 [place] [address] Daina Pichardo MD 230 [place] [address] documented as of this encounter Visit Diagnoses Not on filedocumented in this encounter Additional Health Concerns Assessment Noted Time PHQ-9 Depression Total Score: 3 02/16/20 23 10:56 AM EDT documented as of this encounter Care Teams Microsoft Net Developer Relationship Specialty Start Date End Date Daina Pichardo MD [address] [place] [address] PCP - General Internal Medicine 12/16/22 documented as of this encounter
--- OUTSIDE RECORDS SUMMARY | 2025-06-23 01:08 | XMS_ITS | Encounter Summary ---
Author Organization [facility] Address [address] [place] [address] Care Team Providers Care Dental Claims Processor Name Role Phone Daina Pichardo Primary Care Provider [phone]- [phone] Encounter Details Date Type Department Care Team (Late st Contact Info) Description 05/07/2025 myChart Message [facility] [address] [place] [address] Mychart, Generic Provider [address] [place], [place] [phone] Humira 40mg/0.4mL Pen refill Social History Tobacco [...] Description 10/17/2025 10:30 AM EDT Follow-Up [facility] Gastroenterology Clinic [address] [place] [address] Outpatient Services Director: Lesli Solis documented as of this encounter Goals Goal Patient Goal Type Associated Problems Recent Progress Patient-Stated? Author Autogenerat ed Goal Care Plan Autogenerated Problem No Gaimari, Silva C., WIRE WINDING MACHINE OPERATOR documented as of this encounter Visit Diagnoses Not on filedocumented in this encounter Additional Health Concerns Active Problems Noted Date Diagnosed Date Autogenerated Problem 03/20/2025 documented as of this encounter Care Teams Dental Claims Processor Relationship Specialty Start Date End Date Daina Pichardo PCP - General 10/12/23 documented as of this encounter
--- OUTSIDE RECORDS SUMMARY | 2025-06-23 01:08 | XMS_ITS | Encounter Summary ---
Author Organization [employer] Address [address] [place] [address] Care Team Providers Care Medical Biller/Coder Name Role Phone Daina Pichardo MD Primary Care Pro vider Reason for Visit * Reason Onset Date Comments Med Refill 08/09/2024 Encounter Details Date Type Department Care Team ([facility] st Contact Info) Description 08/09/2024 Telephone [facility] MEDICINE [address] [place], [place] [phone] Daina Pichardo MD [address] [place] [address] Med Refill Social History Tobacco Use Types [...] 10 MG tablet To be sent to: [facility]/pharmacy #[id number] - [address] documented in this encounter Plan of Treatment Upcoming Encounters Date Type Department Care Team ([facility] st Contact Info) Description 07/04/2025 9:00 AM EST Clinical Support [facility] MED [facility] PEDS [address] [place] [address] Hanna Mark, JULIANN [address] [place] [address] 09/06/2025 9:30 AM EST Office Visit [facility] MEDICINE [address] [place] [address] Daina Pichardo MD [address] [place] [address] documented as of this encounter Visit Diagnoses Not on filedocumented in this encounter Additional Health Concerns Assessment Noted Time PHQ-9 Depression Total Score: 3 02/16/20 10:56 AM EDT documented as of this encounter Care Teams Medical Biller/Coder Relationship Specialty Start Date End Date Daina Pichardo MD [address] [place] [address] PCP - General Internal Medicine 12/16/22 documented as of this encounter
--- OUTSIDE RECORDS SUMMARY | 2025-06-23 01:08 | XMS_ITS | Encounter Summary ---
Author Organization [employer] Address [address] [place] [address] Care Team Providers Care University Teacher Name Role Phone Daina Pichardo MD Primary Care Pro vider Reason for Visit * Reason Onset Date Comments Med Refill 01/10/2025 Encounter Details Date Type Department Care Team ([facility] st Contact Info) Description 01/10/2025 Telephone [facility] MEDICINE 230 [place], [place] [phone] Daina Pichardo MD [address] [place] [address] Med Refill Social History Tobacco Use Types [...] Telephone Encounter - Isabel Reyes LPN - 01/10/2025 10:46 AM EDT UX DESIGNER checked on 01/10/25. Medication to soon for refill last filled on 12/19/24 #28. * Telephone Encounter - Laura Delgado - 01/10/2025 10:43 AM EDT TC from pt requesting medication refill. Medications needing refill : zolpidem (Ambien) 10 MG tablet To be sent to: [facility]/pharmacy #[id number] - [address] documented in this encounter Plan of Treatment Upcoming Encounters Date Type Department Care Team (Late st Contact Info) Description 07/04/2025 9:00 AM EST Clinical Support [facility] MED [facility] PEDS [address] [place] [address] Hanna Mark, RN [address] [place] [address] 09/06/2025 9:30 AM EST Office Visit [facility] MEDICINE [address] [place] [address] Daina Pichardo MD [address] [place], [place] [phone] documented as of this encounter Visit Diagnoses Not on filedocumented in this encounter Additional Health Concerns Assessment Noted Time PHQ-9 Depression Total Score: 0 11/01/19 25 9:19 AM EDT documented as of this encounter Care Teams University Teacher Relationship Specialty Start Date End Date Daina Pichardo MD [address] [place] [address] PCP - General Internal Medicine 12/16/22 documented as of this encounter
--- OUTSIDE RECORDS SUMMARY | 2025-06-23 01:08 | XMS_ITS | Encounter Summary ---
Author Organization [employer] Address [address] [place] [address] Care Team Providers Care Laboratory Operations Coordinator Name Role Phone Daina Pichardo MD Primary Care Pro vider Reason for Visit * Reason Onset Date Comments Med Refill 03/08/2024 Encounter Details Date Type Department Care Team (Late st Contact Info) Description 03/08/2024 Telephone [facility] MEDICINE 230 [place], [place] [phone] Daina Pichardo MD [address] [place] [address] Med Refill Social History Tobacco Use Types [...] 10 MG tablet To be sent to: [facility]/pharmacy #[id number] documented in this encounter Plan of Treatment Upcoming Encounters Date Type Department Care Team (Late st Contact Info) Description 07/04/2025 9:00 AM EST Clinical Support [facility] MED [facility] PEDS [address] [place] [address] Hanna Mark, JULIANN 505 [place] [address] 09/06/2025 9:30 AM EST Office Visit [facility] MEDICINE [address] [place] [address] Daina Pcihardo MD [address] [place] [address] documented as of this encounter Visit Diagnoses Not on filedocumented in this encounter Additional Health Concerns Assessment Noted Time PHQ-9 Depression Total Score: 3 02/16/20 23 10:56 AM EDT documented as of this encounter Care Teams Laboratory Operations Coordinator Relationship Specialty Start Date End Date Daina Pichardo MD [address] [place] [address] PCP - General Internal Medicine 12/16/22 documented as of this encounter
--- OUTSIDE RECORDS SUMMARY | 2025-06-23 01:08 | XMS_ITS | Encounter Summary ---
Author Organization [employer] Address [address] [place] [address] Care Team Providers Care Automotive Repair Technician Name Role Phone Daina Pichardo MD Primary Care Pro vider Reason for Visit * Reason Onset Date Comments Med Refill 11/23/2024 Encounter Details Date Type Department Care Team ([facility] st Contact Info) Description 11/23/2024 Telephone [facility] MEDICINE [address] [place], [place] [phone] Daina Pichardo MD [address] [place] [address] Med Refill Social History Tobacco Use Types [...] * Telephone Encounter - Dakota Webber - 11/23/2024 9:10 AM EDT TC from pt requesting medication refill. Medications needing refill : oxyCODONE (Roxicodone) 5 MG immediate release tablet clonazePAM (KlonoPIN) 1 MG tablet To be sent to: [facility]/pharmacy #[id number] - [address] documented in this encounter Plan of Treatment Upcoming Encounters Date Type Department Care Team (Late st Contact Info) Description 07/04/2025 9:00 AM EST Clinical Support [facility] MED & PEDS [address] [place] [address] Hanna Mark RN 505 [place] [address] 09/06/2025 9:30 AM EST Office Visit [facility] MEDICINE [address] [place], [place] [phone] Daina Pichardo MD [address] [place] [address] documented as of this encounter Visit Diagnoses Not on filedocumented in this encounter Additional Health Concerns Assessment Noted Time PHQ-9 Depression Total Score: 0 11/01/19 25 9:19 AM EDT documented as of this encounter Care Teams Automotive Repair Technician Relationship Specialty Start Date End Date Daina Pichardo MD [address] [place] [address] PCP - General Internal Medicine 12/16/22 documented as of this encounter
--- OUTSIDE RECORDS SUMMARY | 2025-06-23 01:08 | XMS_ITS | Encounter Summary ---
Author Organization [employer] Address [address] [place] [address] [address] [place] [address] Care Team Providers Care Android Programmer Name Role Phone Estephania Borrero AD OPERATIONS COORDINATOR Primary Care Provider Daina Whitfield MD Primary Care Pro vider Reason for Visit * Reason Comments Med Refill Encounter Details Date Type Department Care Team (Late st Contact Info) Description 09/15/2022 Refill [facility] MEDICINE [address] [place] [address] Estephania Borrero, WALLY Crohn's disease with complication, [...] Description 07/04/2025 9:00 AM EST Clinical Support [facility] MED & PEDS [address] [place] [address] Hanna Mark, RN [address] [place] [address] 09/06/2025 9:30 AM EST Office Visit [facility] MEDICINE [address] [place] [address] Daina Pichardo MD [address] [place], [place] [phone] documented as of this encounter Visit Diagnoses Diagnosis Crohn's disease with complication, unspecified gastrointestinal tract location (CMS/HCC) (HCC) documented in this encounter Additional Health Concerns Assessment Noted Time PHQ-9 Depression Total Score: 0 08/13/19 1:02 PM EST documented as of this encounter Care Teams Android Programmer Relationship Specialty Start Date End Date Estephania Borrero FNP PCP - General Family Medicine 03/06/22 12/15/22 Daina Pichardo MD [address] [place] [address] PCP - General Internal Medicine 12/16/22 documented as of this encounter
--- OUTSIDE RECORDS SUMMARY | 2025-06-23 01:08 | XMS_ITS | Encounter Summary ---
Author Organization [employer] Address [address] [place] [address] Care Team Providers Care Valve Pipe Irrigator Name Role Phone Daina Pichardo MD Primary Care Pro vider Reason for Visit * Reason Onset Date Comments Med Refill 02/08/2023 Encounter Details Date Type Department Care Team (Late st Contact Info) Description 02/08/2023 Telephone [facility] 230 [place] [address] Daina Pichardo MD 230 [place] [address] Med Refill Social History Tobacco Use Types [...] MG immediate release tablet Please sent to [facility]/pharmacy #[id number] - [place], [place] - [address] [facility] documented in this encounter Plan of Treatment Upcoming Encounters Date Type Department Care Team (Late st Contact Info) Description 07/04/2025 9:00 AM EST Clinical Support [facility] 505 [place] [address] Hanna Mark, RN 505 [place] [address] 09/06/2025 9:30 AM EST Office Visit [facility] 230 [place] [address] Daina Pichardo MD [address] [place] [address] documented as of this encounter Visit Diagnoses Not on filedocumented in this encounter Additional Health Concerns Assessment Noted Time PHQ-9 Depression Total Score: 0 08/13/19 23 1:02 PM EST documented as of this encounter Care Teams Valve Pipe Irrigator Relationship Specialty Start Date End Date Daina Pichardo MD [address] [place] [address] PCP - General Internal Medicine 12/16/22 documented as of this encounter
--- OUTSIDE RECORDS SUMMARY | 2025-06-23 01:08 | XMS_ITS | Encounter Summary ---
Author Organization [employer] Address [address] [facility] 7 [place] [address] Care Team Providers Care Fire And Explosion Investigator Name Role Phone Daina Pichardo MD Primary Care Pro vider Reason for Visit * Reason Onset Date Comments Med Refill 04/04/2025 Encounter Details Date Type Department Care Team (Late st Contact Info) Description 04/04/2025 Refill [facility]INE 230 [place] [address] Zarina Alarcon MD 230 [place] [address] Social History Tobacco Use Types Packs/Day Years [...] Description 07/04/2025 9:00 AM EST Clinical Support [facility]EDS 505 [place] [address] Hanna Mark, RN 505 [place] [address] 09/06/2025 9:30 AM EST Office Visit [facility] [address] [place] [address] Daina Pichardo MD [address] [place] [address] documented as of this encounter Visit Diagnoses Not on filedocumented in this encounter Additional Health Concerns Assessment Noted Time PHQ-9 Depression Total Score: 0 11/01/19 25 9:19 AM EDT documented as of this encounter Care Teams Fire And Explosion Investigator Relationship Specialty Start Date End Date Daina Pichardo MD [address] [place] [address] PCP - General Internal Medicine 12/16/22 documented as of this encounter
--- OUTSIDE RECORDS SUMMARY | 2025-06-23 01:08 | XMS_ITS | Encounter Summary ---
Author Organization [employer] Address [address] [place] [address] Care Team Providers Care Craps Manager Name Role Phone Daina Pichardo MD Primary Care Pro vider Reason for Visit * Reason Onset Date Comments Med Refill 04/09/2025 Encounter Details Date Type Department Care Team (Late st Contact Info) Description 04/09/2025 Refill [facility] MEDICINE 230 [place] [address] Daina Pichardo MD 230 [place] [address] Insomnia, unspecified type Social History Tobacco Use [...] housing situation today? I have balwinder sing 10/23/[address] you li [...] diff erent things 0 04/12/2025 9:26 AM JAZT Hanna Mark RN Trouble relaxing 2 04/12/2025 9:26 AM EDT Hanna Munoz RN Being so restless that it is hard to sit still 2 04/12/2025 9:26 AM EDT Hanna Mark RN Becoming easily annoyed or irritable 2 04/12/2025 9:26 AM JAZT Hanna Mark RN Feeling afraid as if somethi ng awful might happen 0 04/12/2025 9:26 AM JAZT Hanna Mark RN LILIYA-7 Total Score 8 04/12/2025 9:26 AM JAZT Hanna Mark RN documented as of this encounter Plan of Treatment Upcoming Encounters Date Type Department Care Team (Late st Contact Info) Description 07/04/2025 9:00 AM EST Clinical Support [facility]EDS 505 [place] [address] Hanna Mark, RN 505 [place] [address] 09/06/2025 9:30 AM EST Office Visit [facility] MEDICINE 230 [place] [address] Daina Pichardo MD [address] [place] [address] documented as of this encounter Visit Diagnoses Diagnosis Insomnia, unspecified type documented in this encounter Additional Health Concerns Assessment Noted Time PHQ-9 Depression Total Score: 0 11/01/19 25 9:19 AM EDT documented as of this encounter Care Teams Craps Manager Relationship Specialty Start Date End Date Daina Pichardo MD [address] [place] [address] PCP - General Internal Medicine 12/16/22 documented as of this encounter
--- OUTSIDE RECORDS SUMMARY | 2025-06-23 01:08 | XMS_ITS | Encounter Summary ---
Author Organization [facility] Address [address] [place] [address] Care Team Providers Care Board Writer Name Role Phone Daina Pichardo Primary Care Provider [phone] Encounter Details Date Type Department Care Team (Late st Contact Info) Description 05/31/2020 Orders Only [facility] Interventional Radiology [address] [place] [address] Angel Fan MD [address] [place] [address] Social History Tobacco Use Types Packs/Day Years [...] Info) Description 10/17/2025 10:30 AM EDT Follow-Up [facility] [address] [place], [place] [phone] Tin Flopper: Lesli Solis documented as of this encounter Visit Diagnoses Not on filedocumented in this encounter Care Teams Board Writer Relationship Specialty Start Date End Date Daina Pichardo PCP - General 10/12/23 documented as of this encounter
--- OUTSIDE RECORDS SUMMARY | 2025-06-23 01:08 | XMS_ITS | Encounter Summary ---
Author Organization [facility] Address [address] [facility] [address] [place] [address] Encounters * CPT with Hood Farmer at [facility] on 2024-12-22 Hx Chrons, colectomy, migraines. Patient in ED recently for back pain. Has had cold type symtoms now for one week duration. [facility] for back and leg pain. { reasonForRequest : cough/ sore throat , patientReports : , denies :[], chiefComplaints : Cough, Sore Throat , pmh :"Severe Persistent Mental Illness (SPMI), Kidney Stones, Inflammatory Bowel Disease (Crohn's Disease, Ulcerative Colitis), Migraine , allergies : Haldol, Meperidine, Metoclopramide, Morphine, Demerol, Prochlorperazine, Zofran, Trazodone, Sulfa (Sulfonamide Antibiotics) ,& quot;otherAllergies : , painAssessment : , visitOutcome&qu ot;: , additionalComments : HPI reviewed } pt chief complaint today of cold/flu symptoms that have been occurring for approx 1 week prior to [facility] arrival at scene today. pt expresses he [...] assessment performed as well as possible treatment. [facility] called in via p pcp. pt denies any c, sob, nvd blurred vision. allergies noted non neural focal exam, afebrile, vitals wnl for the baseline of the pt. lungs present as clear bilaterally on auscultation, benign abdominal assessment. no lower extremity edema noted. poc covid/ flutest given with a negative result. P is caox4 with a gcs of 15. [facility] consulted pt is informed of findings. pt is told to follow up with his pcp and or insted staff as needed. allparties educated on red flag s&s and to call emergency services if any present. ORAL_MEDICATION, EKG, POC_FLU_STREP, COVID_TEST Written by Hood Farmer on 2024-12-22
--- OUTSIDE RECORDS SUMMARY | 2025-06-23 01:08 | XMS_ITS | Encounter Summary ---
Author Organization [employer] Address [address] [place] [address] Care Team Providers Care In Flight Refueling System Repairer Name Role Phone Daina Pichardo MD Primary Care Pro vider Reason for Visit * Reason Onset Date Comments Med Refill 09/10/2023 Encounter Details Date Type Department Care Team (Late st Contact Info) Description 09/10/2023 Refill [facility]INE 230 [place], [place] [phone] Daina Pichardo MD 230 [place] [address] Insomnia, unspecified type Social History Tobacco Use [...] - [facility] 505 [place] [address] Hanna Mark RN 505 [place] [address] 09/06/2025 9:30 AM EST Office Visit [facility] 230 [place] [address] Daina Pichardo MD [address] [place] [address] documented as of this encounter Visit Diagnoses Diagnosis Insomnia, unspecified type documented in this encounter Additional Health Concerns Assessment Noted Time PHQ-9 Depression Total Score: 3 02/16/20 23 10:56 AM EDT documented as of this encounter Care Teams In Flight Refueling System Repairer Relationship Specialty Start Date End Date Daina Pichardo MD [address] [place] [address] PCP - General Internal Medicine 12/16/22 documented as of this encounter
--- OUTSIDE RECORDS SUMMARY | 2025-06-23 01:09 | XMS_ITS | Encounter Summary ---
Author Organization [employer] Address [address] [facility] 7t [place] [address] Care Team Providers Care Outpatient Admitting Clerk Name Role Phone Daina Pichardo MD Primary Care Pro vider Reason for Visit * Reason Comments Med Refill Encounter Details Date Type Department Care Team (Late st Contact Info) Description 01/14/2023 Refill [facility]INE 230 [place] [address] Estephania Borrero, WALLY Insomnia, unspecified type; Anxiety Social History Tobacco [...] 9:00 AM EST Clinical Support [facility] PEDS 505 [place] [address] Hanna Mark, RN 505 [place] [address] 09/06/2025 9:30 AM EST Office Visit [facility]INE [address] [place] [address] Daina Pichardo MD 230 [place] [address] documented as of this encounter Visit Diagnoses Diagnosis Insomnia, unspecified type Anxiety Anxiety state, unspecified documented in this encounter Additional Health Concerns Assessment Noted Time PHQ-9 Depression Total Score: 0 08/13/19 23 1:02 PM EST documented as of this encounter Care Teams Outpatient Admitting Clerk Relationship Specialty Start Date End Date Daina Pichardo MD [address] [place] [id number] PCP - General Internal Medicine 12/16/22 documented as of this encounter
--- OUTSIDE RECORDS SUMMARY | 2025-06-23 01:09 | XMS_ITS | Encounter Summary ---
Author Organization [employer] Address [address] [place] [address] Care Team Providers Care Straddle Truck Operator Name Role Phone Daina Pichardo MD Primary Care Pro vider Reason for Visit * Reason Comments Med Change Request Encounter Details Date Type Department Care Team ([facility] st Contact Info) Description 02/15/2023 Refill [facility] MED[facility] 230 [place], [place] [phone] Daina Pichardo MD 230 [place] [address] Social History Tobacco Use Types Packs/Day Years [...] this encounter Functional Status * Over the past 2 weeks, how often have you been bothered by any of the following problems? Question Answer Date of Assessment Author Patient Health Questionnaire -2 Score 0 02/15/2023 10:56 AM EDT Nell Tejeda MA * How difficult have these problems made it for you to do your work, take care of things at home, or get along with other people? Answer Date of Assessment Author Somewhat difficult 02/15/2023 10:56 AM Nell Gamez MA * Over the past 2 weeks, how often have you been bothered by any of the following problems? Question Answer Date of Assessment Author Little interest or pleasure in doing things Not at all 02/15/2023 10:56 AM Nell Barnard MA Feeling down, depressed, or hopeless Not at all 02/15/2023 10:56 AM Nell Barnard [place] Trouble falling or staying asleep, or sleeping too much Several days 02/15/2023 10:56 AM Nell Barnard MA Feeling tired or having little energy Several days 02/15/2023 10:56 AM Nell Barnard MA Poor appetite or overeating Several days 02/15/2023 10 :56 AM Nell Barnard [place] Feeling bad about yourself - or that you are a failure or have let yourself or your family down Not at all 02/15/2023 10:56 AM Nell Barnard MA Trouble concentrating on things, such as reading the newspaper or watching television Not at all 02/15/2023 10:56 AM Nell Barnard MA Moving or speaking so slowly that other people could have noticed? Or the opposite - being so fidgety or restless that you have been moving around a lot more than usual. Not at all 02/15/2023 10:56 AM Nell Barnard MA Thoughts that you would be better off or hurting yourself in some way Not at all 02/15/2023 10:56 AM Charlotte Barnard MA Patient Health Questionnaire-9 Score 3 02/15/2023 10:56 AM Melly Barnard MA documented as of this encounter Miscellaneous Notes * Telephone Encounter - Daina Quinn MD - 02/16/2023 6:16 PM EDT No need to give another drops pt was already prescribed ATB drops by her farmworker field crop thanks documented in this encounter Plan of Treatment Upcoming Encounters Date Type Department Care Team (Late st Contact Info) Description 07/04/2025 9:00 AM EST Clinical Support [facility]EDS 505 [place] [address] Hanna Mark, RN 505 [place] [address] 09/06/2025 9:30 AM EST Office Visit [facility] 230 [place] [address] Daina Pichardo MD 230 [place] [address] documented as of this encounter Visit Diagnoses Not on filedocumented in this encounter Additional Health Concerns Assessment Noted Time PHQ-9 Depression Total Score: 3 02/16/20 10:56 AM EDT documented as of this encounter Care Teams Straddle Truck Operator Relationship Specialty Start Date End Date Daina Pichardo MD [address] [place] [address] [id number] PCP - General Internal Medicine 12/16/22 documented as of this encounter
--- OUTSIDE RECORDS SUMMARY | 2025-06-23 01:09 | XMS_ITS | Encounter Summary ---
Author Organization [employer] Address [address] [place] [address] Care Team Providers Care Sports Development Officer Name Role Phone Daina Pichardo MD Primary Care Pro vider Reason for Visit * Reason Onset Date Comments Med Refill 04/05/2024 Encounter Details Date Type Department Care Team (Late st Contact Info) Description 04/05/2024 Telephone [facility] 230 [place], [place] [phone] Daina Pichardo MD 230 [place] [address] Med Refill Social History Tobacco Use Types [...] . Pt states will be leaving to [facility] this evening and needs office to call pharmacy to dispense early . * Telephone Encounter - Savanah Junior - 04/05/2024 9:08 AM EDT TC from pt requesting medication refill. Medications needing refill : oxyCODONE (Roxicodone) 5 MG immediate release tablet To be sent to: [facility]/pharmacy #[id number] - [address] documented in this encounter Plan of Treatment Upcoming Encounters Date Type Department Care Team (Late st Contact Info) Description 07/04/2025 9:00 AM EST Clinical Support [facility] 505 [place] [address] Hanna Mark, JULIANN 505 [place] [address] 09/06/2025 9:30 AM EST Office Visit [facility] 230 [place] [address] Daina Pichardo MD 230 [place], [place] [phone] documented as of this encounter Visit Diagnoses Not on filedocumented in this encounter Additional Health Concerns Assessment Noted Time PHQ-9 Depression Total Score: 3 02/16/20 10:56 AM EDT documented as of this encounter Care Teams Sports Development Officer Relationship Specialty Start Date End Date Daina Pichardo MD [address] [place] [phone] PCP - General Internal Medicine 12/16/22 documented as of this encounter
--- OUTSIDE RECORDS SUMMARY | 2025-06-23 01:09 | XMS_ITS | Encounter Summary ---
Author Organization [email or web address] Address [address] [place] [address] Care Team Providers Care Communication Equipment Repairer Name Role Phone Daina Pichardo MD Primary Care Pro vider Reason for Visit * Reason Onset Date Comments Med Refill 02/15/2023 Encounter Details Date Type Department Care Team (Late st Contact Info) Description 02/15/2023 Refill [facility] MEDICINE 230 [place] [address] Daina Pichardo MD 230 [place] [address] Insomnia, unspecified type; Anxiety; Complications of intestinal [...] Questionnaire -2 Score 0 02/15/2023 10:56 AM Nell Barnard MA * How difficult have these problems [...] Not at all 02/15/2023 10:56 AM Nell Baranrd MA Trouble concentrating on things, such as [...] Barnard [place] documented as of this encounter Plan of Treatment Upcoming Encounters Date Type Department Care Team (Late st Contact Info) Description 07/04/2025 9:00 AM EST Clinical Support [facility] 505 [place] [address] Hanna Mark, RN 505 [place] [address] 09/06/2025 9:30 AM EST Office Visit [facility] 230 [place] [address] Daina Pichardo MD 230 [place] [address] documented as of this encounter Visit Diagnoses Diagnosis Insomnia, unspecified type Anxiety Anxiety state, unspecified Complications of intestinal pouch (HCC) Crohn's disease of small intestine with complication (HCC) documented in this encounter Additional Health Concerns Assessment Noted Time PHQ-9 Depression Total Score: 3 02/16/20 23 10:56 AM EDT documented as of this encounter Care Teams Communication Equipment Repairer Relationship Specialty Start Date End Date Daina Pichardo MD 230 [place] [address] PCP - General Internal Medicine 12/16/22 documented as of this encounter
--- OUTSIDE RECORDS SUMMARY | 2025-06-23 01:09 | XMS_ITS | Encounter Summary ---
Author Organization [employer] Address [address] [place] [address] 7 [place] [address] Care Team Providers Care Cotton Seed Culler Name Role Phone Daina Pichardo MD Primary Care Pro vider Reason for Visit * Reason Onset Date Comments Med Refill 04/14/2023 Encounter Details Date Type Department Care Team (Late st Contact Info) Description 04/14/2023 Refill [facility] MEDICINE [address] [place] [address] Estephania Borrero, WALLY Crohn's disease of small intestine with complication [...] 07/04/2025 9:00 AM EST Clinical Support [facility] MED & PEDS 505 [place], [place] [phone] Hanna Mark RN 505 [place] [address] 09/06/2025 9:30 AM EST Office Visit [facility] MEDICINE 230 [place], [place] [phone] Daina Pichardo MD 230 [place] [address] documented as of this encounter Visit Diagnoses Diagnosis Crohn's disease of small intestine with complication (HCC) Ileal pouchitis (CMS/HCC) (HCC) documented in this encounter Additional Health Concerns Assessment Noted Time PHQ-9 Depression Total Score: 3 02/16/20 23 10:56 AM EDT documented as of this encounter Care Teams Cotton Seed Culler Relationship Specialty Start Date End Date Daina Pichardo MD 230 [place] [address] PCP - General Internal Medicine 12/16/22 documented as of this encounter
--- OUTSIDE RECORDS SUMMARY | 2025-06-23 01:09 | XMS_ITS | Clinical Summary ---
Author Organization [facility] Address [address] [facility] [address] [place] [address] Phone Care Team Providers Care Warehouse Associate Name Role Phone Manuel Harris MD Primary [...] on file Insurance MEDICARE REPLACEMENT KATIE PATTERSON [id number] [place] [address] MEDICARE REPLACEMENT MEDICARE REPLACEMENT CARE MEDICARE REPLACEMENT CARE MEDICARE REPLACEMENT CARE MEDICARE [place]AC[place] [place] [address] ONE [employer] MEDICARE REPLACEMENT Care Teams Warehouse Associate Relationship Specialty Start Date End Date Manuel Harris MD [address] [place] [address] PCP - General Internal Medicine 10/20/18 Additional Source Comments The information contained in this document represents components of the legal health record. It is not the complete legal health record.[facility]
--- OUTSIDE RECORDS SUMMARY | 2025-06-23 01:09 | XMS_ITS | Encounter Summary ---
Author Organization [employer] Address [address] [place] [address] Care Team Providers Care Wood Treating Inspector Name Role Phone Daina Pichardo MD Primary Care Pro vider Reason for Visit * Reason Onset Date Comments Med Refill 01/07/2024 Encounter Details Date Type Department Care Team ([facility] st Contact Info) Description 01/07/2024 Telephone [facility] MEDICINE 230 [place], [place] [phone] Daina Pichardo MD 230 [place] [address] Med Refill Social History Tobacco Use Types [...] 1 MG tablet To be sent to: [facility]/pharmacy #[id number] - [address] documented in this encounter Plan of Treatment Upcoming Encounters Date Type Department Care Team (Late st Contact Info) Description 07/04/2025 9:00 AM EST Clinical Support [facility] PEDS 505 [place] [address] Hanna Mark, JULIANN 505 [place] [address] 09/06/2025 9:30 AM EST Office Visit [facility] MEDICINE 230 [place] [address] Daina Pichardo MD [address] [place] [address] documented as of this encounter Visit Diagnoses Not on filedocumented in this encounter Additional Health Concerns Assessment Noted Time PHQ-9 Depression Total Score: 3 02/16/20 23 10:56 AM EDT documented as of this encounter Care Teams Wood Treating Inspector Relationship Specialty Start Date End Date Daina Pichardo MD [address] [place] [address] PCP - General Internal Medicine 12/16/22 documented as of this encounter
--- OUTSIDE RECORDS SUMMARY | 2025-06-23 01:09 | XMS_ITS | Encounter Summary ---
Author Organization [employer] Address [address] [place] [address] Care Team Providers Care Counselling Psychologist Name Role Phone Daina Pichardo MD Primary Care Pro vider Reason for Visit * Reason Onset Date Comments Med Refill 02/07/2024 Encounter Details Date Type Department Care Team ([facility] st Contact Info) Description 02/07/2024 Telephone [facility] MEDICINE 230 [place], [place] [phone] Daina Pichardo MD 230 [place] [address] Med Refill Social History Tobacco Use Types [...] 1 MG tablet To be sent to: [facility]/pharmacy #[id number] - [address] documented in this encounter Plan of Treatment Upcoming Encounters Date Type Department Care Team (Late st Contact Info) Description 07/04/2025 9:00 AM EST Clinical Support [facility] PEDS 505 [place] [address] Hanna Mark, JULIANN 505 [place] [address] 09/06/2025 9:30 AM EST Office Visit [facility] MEDICINE [address] [place] [address] Daina Pichardo MD [address] [place] [address] documented as of this encounter Visit Diagnoses Not on filedocumented in this encounter Additional Health Concerns Assessment Noted Time PHQ-9 Depression Total Score: 3 02/16/20 23 10:56 AM EDT documented as of this encounter Care Teams Counselling Psychologist Relationship Specialty Start Date End Date Daina Pichardo MD [address] [place] [address] PCP - General Internal Medicine 12/16/22 documented as of this encounter
--- OUTSIDE RECORDS SUMMARY | 2025-06-23 01:09 | XMS_ITS | Encounter Summary ---
Author Organization [facility] Address [address] [facility] [place] [address] Phone Care Team Providers Care Weigh Box Tender Name Role Phone Manuel Harris MD Primary Care Provider + Encounter Details Date Type Department Care Team (Late st Contact Info) Description 12/10/2021 Procedure Pass [facility], Ct Scan - [address] [address] Social History Tobacco Use Types Packs/Day Years [...] Orientation Straight 01/04/2018 7: 14 PM EDT documented as of this encounter Functional Status * Calculated C-SSRS Risk Score (Lifetime/Recent) Answer Date of Assessment Author No Risk Indicated 12/10/2021 10:29 AM EDT Augusta Perez RN * [place] Suicide Severity Rating Scale (Screener/Recent Self-Report) Question Answer Date of Assessment Author 1. Wish to be (Past 1 Month) No 12/10/2021 10:29 AM EDT Samanta Castellanos cie, RN 2. Non-Specific Active Suicidal Thoughts (Past 1 Month) No 12/10/2021 10:29 AM EDT Samanta Castellanos cie, RN 6. Suicidal Behavior (Lifetime) No 12/10/2021 10:29 AM EDT Samanta Castellanos cie, RN documented as of this encounter Plan of Treatment Not on file documented as of this encounter Visit Diagnoses Not on filedocumented in this encounter Care Teams Weigh Box Tender Relationship Specialty Start Date End Date Manuel Harris MD [address] [place] [address] PCP - General Internal Medicine 10/20/18 documented as of this encounter Additional Source Comments The information contained in this document represents components of the legal health record. It is not the complete legal health record.[facility]
--- OUTSIDE RECORDS SUMMARY | 2025-06-23 01:09 | XMS_ITS | Encounter Summary ---
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 It is not the complete legal health record.[facility]
--- OUTSIDE RECORDS SUMMARY | 2025-06-23 01:09 | XMS_ITS | Encounter Summary ---
Author Organization [employer] Address [address] [place] [address] Care Team Providers Care Trimmer Tailer Name Role Phone Daina Pichardo MD Primary Care Pro vider Reason for Visit * Reason Onset Date Comments Med Refill 04/14/2023 Encounter Details Date Type Department Care Team (Late st Contact Info) Description 04/14/2023 Refill [facility] 230 [place] [address] Daina Pichardo MD 230 [place] [address] Insomnia, unspecified type Social History Tobacco Use [...] 9:00 AM EST Clinical Support [facility] 505 [place], [place] [phone] Hanna Mark, JULIANN 505 [place] [address] 09/06/2025 9:30 AM EST Office Visit [facility] 230 [place] [address] Daina Pichardo MD [address] [place] [address] documented as of this encounter Visit Diagnoses Diagnosis Insomnia, unspecified type documented in this encounter Additional Health Concerns Assessment Noted Time PHQ-9 Depression Total Score: 3 02/16/20 10:56 AM EDT documented as of this encounter Care Teams Trimmer Tailer Relationship Specialty Start Date End Date Daina Pichardo MD [address] [place] [address] PCP - General Internal Medicine 12/16/22 documented as of this encounter
--- OUTSIDE RECORDS SUMMARY | 2025-06-23 01:09 | XMS_ITS | Encounter Summary ---
Author Organization [employer] Address [address] [place] [address] Care Team Providers Care Body Welder Name Role Phone Daina Pichardo MD Primary Care Pro vider Reason for Visit * Reason Onset Date Comments Med Refill 05/10/2024 Encounter Details Date Type Department Care Team (Late st Contact Info) Description 05/10/2024 Telephone [facility] MEDICINE 230 [place], [place] [phone] Daina Pichardo MD 230 [place] [address] Med Refill Social History Tobacco Use Types [...] 1 MG tablet To be sent to: [facility][id number] documented in this encounter Plan of Treatment Upcoming Encounters Date Type Department Care Team (Late st Contact Info) Description 07/04/2025 9:00 AM EST Clinical Support [facility] MED & PEDS 505 [place] [address] Hanna Mark, RN 505 [place] [address] 09/06/2025 9:30 AM EST Office Visit [facility] MEDICINE 230 [place] [address] Daina Pichardo MD 230 [place] [address] documented as of this encounter Visit Diagnoses Not on filedocumented in this encounter Additional Health Concerns Assessment Noted Time PHQ-9 Depression Total Score: 3 02/16/20 23 10:56 AM EDT documented as of this encounter Care Teams Body Welder Relationship Specialty Start Date End Date Daina Pichardo MD [address] [place] [address] PCP - General Internal Medicine 12/16/22 documented as of this encounter
--- OUTSIDE RECORDS SUMMARY | 2025-06-23 01:09 | XMS_ITS | Encounter Summary ---
Author Organization [facility] Address [address] [place] [address] Phone Care Team Providers Care Electoral Officer Name Role Phone Manuel Harris MD Primary Care Provider + Encounter Details Date Type Department Care Team (Late st Contact Info) Description 02/16/2022 Procedure Pass [facility], Ct Scan - [address] [address] Social History Tobacco Use Types Packs/Day Years [...] Date of Assessment Author No Risk Indicated 02/16/2022 4:56 AM EDT Benny Corbin, JULIANN * [place] Suicide Severity Rating Scale (Screener/Recent Self-Report) Question Answer Date of Assessment Author 1. Wish to be (Past 1 Month) No 022 4:56 AM EDT Benny Corbin, RN 2. Non-Specific Active Suici lazara Thoughts (Past 1 Month) No 02/16/2022 4:56 AM EDT Diomedes Corbin, RN 6. Suicidal Behavior (Lifetime) No 4:56 AM EDT Benny Corbin RN documented as of this encounter Plan of Treatment Not on file documented as of this encounter Visit Diagnoses Not on filedocumented in this encounter Care Teams Electoral Officer Relationship Specialty Start Date End Date Manuel Harris MD [address] [address] PCP - General Internal Medicine 10/20/18 documented as of this encounter Additional Source Comments The information contained in this document represents components of the legal health record. It is not the complete legal health record.[facility]
--- OUTSIDE RECORDS SUMMARY | 2025-06-23 01:09 | XMS_ITS | Encounter Summary ---
Author Organization [employer] Address [address] [place] [address] Care Team Providers Care Slitter And Cutter Operator Name Role Phone Daina Pichardo MD Primary Care Pro vider Reason for Visit * Reason Onset Date Comments Med Refill 04/27/2024 Encounter Details Date Type Department Care Team (Late st Contact Info) Description 04/27/2024 Refill [facility] MEDICINE 230 [place], [place] [phone] Daina Pichardo MD 230 [place] [address] Social History Tobacco Use Types Packs/Day Years [...] Description 07/04/2025 9:00 AM EST Clinical Support [facility] MED [facility] PEDS 505 [place] [address] Hanna Mark, RN 505 [place] [address] 09/06/2025 9:30 AM EST Office Visit [facility] 230 [place] [address] Daina Pichardo MD [address] [place] [address] documented as of this encounter Visit Diagnoses Not on filedocumented in this encounter Additional Health Concerns Assessment Noted Time PHQ-9 Depression Total Score: 3 02/16/20 10:56 AM EDT documented as of this encounter Care Teams Slitter And Cutter Operator Relationship Specialty Start Date End Date Daina Pichardo MD [address] [place] [address] PCP - General Internal Medicine 12/16/22 documented as of this encounter
--- OUTSIDE RECORDS SUMMARY | 2025-06-23 01:09 | XMS_ITS | Encounter Summary ---
Author Organization [facility] Address [address] [place] [address] Phone Care Team Providers Care Stockroom Worker Name Role Phone Manuel Harris MD Primary Care Provider + Encounter Details Date Type Department Care Team (Late st Contact Info) Description 10/28/2021 Procedure Pass [facility], Ct Scan - [address] [address] Social History Tobacco Use Types Packs/Day Years [...] Date of Assessment Author No Risk Indicated 10/28/2021 5:10 PM EDT Marlon Walters, JULIANN * [place] Suicide Severity Rating Scale (Screener/Recent Self-Report) Question Answer Date of Assessment Author 1. Wish to be (Past 1 Month) No 10/28/2021 5:10 PM EDT Marlon Linares, JULIANN 2. Non-Specific Active Suicidal Thoughts (Past 1 Month) No 10/28/2021 5:10 PM EDT Marlon Linares, JULIANN 6. Suicidal Behavior (Lifetime) No 10/28/2021 5:10 PM EDT Marlon Linares RN documented as of this encounter Plan of Treatment Not on file documented as of this encounter Visit Diagnoses Not on filedocumented in this encounter Care Teams Stockroom Worker Relationship Specialty Start Date End Date Manuel Harris MD [address] [place] [address] PCP - General Internal Medicine 10/20/18 documented as of this encounter Additional Source Comments The information contained in this document represents components of the legal health record. It is not the complete legal health record.[facility]
--- OUTSIDE RECORDS SUMMARY | 2025-06-23 01:09 | XMS_ITS | Encounter Summary ---
Author Organization [employer] Address [address] [facility] 7 [place] [address] Care Team Providers Care Four Slide Machine Operator Name Role Phone Daina Pichardo MD Primary Care Pro vider Reason for Visit * Reason Comments Med Refill Encounter Details Date Type Department Care Team ([facility] Contact Info) Description 01/14/2023 Refill [facility] 230 [place] [address] Estephania Borrero, WALLY Insomnia, unspecified type Social History Tobacco Use [...] Upcoming Encounters Date Type Department Care Team ([facility] Contact Info) Description 07/04/2025 9:00 AM EST Clinical Support [facility] 505 [place], [place] [phone] Hanna Mark, JULIANN 505 [place], [place] [phone] 09/06/2025 9:30 AM EST Office Visit [facility] 230 [place] [address] Daina Pichardo MD 230 [place] [address] documented as of this encounter Visit Diagnoses Diagnosis Insomnia, unspecified type documented in this encounter Additional Health Concerns Assessment Noted Time PHQ-9 Depression Total Score: 0 08/13/19 23 1:02 PM EST documented as of this encounter Care Teams Four Slide Machine Operator Relationship Specialty Start Date End Date Daina Pichardo MD 230 [place], [place] [phone] PCP - General Internal Medicine 12/16/22 documented as of this encounter
--- OUTSIDE RECORDS SUMMARY | 2025-06-23 01:09 | XMS_ITS | Encounter Summary ---
Author Organization [employer] Address [address] [place] [address] Care Team Providers Care Steel Pourer Helper Name Role Phone Daina Pichardo MD Primary Care Pro vider Reason for Visit * Reason Onset Date Comments Med Refill 04/15/2023 Encounter Details Date Type Department Care Team ([facility] st Contact Info) Description 04/15/2023 Telephone [facility] MEDICINE 230 [place], [place] [phone] Daina Pichardo MD 230 [place] [address] Med Refill Social History Tobacco Use Types [...] 9:00 AM EST Clinical Support [facility] MED & PEDS 505 [place] [address] Hanna Mark, JULIANN 505 [place] [address] 09/06/2025 9:30 AM EST Office Visit [facility] MEDICINE 230 [place], [place] [phone] Daina Pichardo MD 230 [place] [address] documented as of this encounter Visit Diagnoses Not on filedocumented in this encounter Additional Health Concerns Assessment Noted Time PHQ-9 Depression Total Score: 3 02/16/20 10:56 AM EDT documented as of this encounter Care Teams Steel Pourer Helper Relationship Specialty Start Date End Date Daina Pichardo MD [address] [place] [address] PCP - General Internal Medicine 12/16/22 documented as of this encounter
--- OUTSIDE RECORDS SUMMARY | 2025-06-23 01:09 | XMS_ITS | Encounter Summary ---
Author Organization [employer] Address [address] [place] [address] Care Team Providers Care Bag Making Machine Tender Name Role Phone Daina Pichardo MD Primary Care Pro vider Reason for Visit * Reason Onset Date Comments Med Refill 03/16/2023 Encounter Details Date Type Department Care Team (Late st Contact Info) Description 03/16/[address] [facility] MEDICINE 230 [place], [place] [phone] Daina Pichardo MD 230 [place] [address] Med Refill Social History Tobacco Use Types [...] Description 07/04/2025 9:00 AM EST Clinical Support [facility] MED & PEDS 505 [place] [address] Hanna Mark, RN 505 [place] [address] 09/06/2025 9:30 AM EST Office Visit [facility] MEDICINE 230 [place] [address] Daina Pichardo MD [address] [place] [address] [phone] documented as of this encounter Visit Diagnoses Not on filedocumented in this encounter Additional Health Concerns Assessment Noted Time PHQ-9 Depression Total Score: 3 02/16/20 10:56 AM EDT documented as of this encounter Care Teams Bag Making Machine Tender Relationship Specialty Start Date End Date Daina Pichardo MD [address] [place] [id number] PCP - General Internal Medicine 12/16/22 documented as of this encounter
--- OUTSIDE RECORDS SUMMARY | 2025-06-23 01:09 | XMS_ITS | Encounter Summary ---
Author Organization [employer] Address [address] [place] [address] Care Team Providers Care Electrical Maintenance Engineer Name Role Phone Daina Pichardo MD Primary Care Pro vider Reason for Visit * Reason Onset Date Comments Med Refill 04/07/2024 Encounter Details Date Type Department Care Team (Late st Contact Info) Description 04/07/2024 Telephone [facility] MEDICINE 230 [place], [place] [phone] Daina Pichardo MD 230 [place] [address] Med Refill Social History Tobacco Use Types [...] [facility]/pharmacy #1972 - [address] documented in this encounter Plan of Treatment Upcoming Encounters Date Type Department Care Team (Late st Contact Info) Description 07/04/2025 9:00 AM EST Clinical Support [facility] MED & PEDS 505 [place] [address] Hanna Mark, JULIANN 505 [place] [address] 09/06/2025 9:30 AM EST Office Visit [facility] MEDICINE 230 [place] [address] Daina Pichardo MD [address] [place] [address] documented as of this encounter Visit Diagnoses Not on filedocumented in this encounter Additional Health Concerns Assessment Noted Time PHQ-9 Depression Total Score: 3 02/16/20 23 10:56 AM EDT documented as of this encounter Care Teams Electrical Maintenance Engineer Relationship Specialty Start Date End Date Daina Pichardo MD [address] [place] [address] PCP - General Internal Medicine 12/16/22 documented as of this encounter
--- OUTSIDE RECORDS SUMMARY | 2025-06-23 01:09 | XMS_ITS | Encounter Summary ---
Author Organization [employer] Address [address] [place] [address] Care Team Providers Care Microfilm Machine Operator Name Role Phone Daina Pichardo MD Primary Care Pro vider Reason for Visit * Reason Onset Date Comments Med Refill 05/10/2024 Encounter Details Date Type Department Care Team (Late st Contact Info) Description 05/10/2024 Telephone [facility] MEDICINE 230 [place], [place] [phone] Daina Pichardo MD 230 [place] [address] Med Refill Social History Tobacco Use Types [...] 10 MG tablet To be sent to: [facility]/pharmacy #1972 documented in this encounter Plan of Treatment Upcoming Encounters Date Type Department Care Team (Late st Contact Info) Description 07/04/2025 9:00 AM EST Clinical Support [facility] MED & PEDS 505 [place] [address] Hanna Mark RN 505 [place] [address] 09/06/2025 9:30 AM EST Office Visit [facility] MEDICINE [address] [place] [address] aDina Pichardo MD 230 [place] [address] documented as of this encounter Visit Diagnoses Not on filedocumented in this encounter Additional Health Concerns Assessment Noted Time PHQ-9 Depression Total Score: 3 02/16/20 10:56 AM EDT documented as of this encounter Care Teams Microfilm Machine Operator Relationship Specialty Start Date End Date Daina Pichardo MD [address] [place] [address] PCP - General Internal Medicine 12/16/22 documented as of this encounter
--- OUTSIDE RECORDS SUMMARY | 2025-06-23 01:09 | XMS_ITS | Encounter Summary ---
Author Organization [employer] Address [address] [place] [address] Care Team Providers Care Psychology Clinician Name Role Phone Daina Pichardo MD Primary Care Pro vider Reason for Visit * Reason Onset Date Comments Med Refill 04/07/2024 Encounter Details Date Type Department Care Team (Late st Contact Info) Description 04/07/2024 Telephone [facility] MEDICINE 230 [place], [place] [phone] Daina Pichardo MD 230 [place] [address] Med Refill Social History Tobacco Use Types [...] 1 MG tablet To be sent to: [facility]/pharmacy #1972 - [address] documented in this encounter Plan of Treatment Upcoming Encounters Date Type Department Care Team (Late st Contact Info) Description 07/04/2025 9:00 AM EST Clinical Support [facility] PEDS 505 [place] [address] Hanna Mark, JULIANN [address] [place] [address] 09/06/2025 9:30 AM EST Office Visit [facility] MEDICINE 230 [place] [address] Daina Pichardo MD [address] [place] [address] documented as of this encounter Visit Diagnoses Not on filedocumented in this encounter Additional Health Concerns Assessment Noted Time PHQ-9 Depression Total Score: 3 02/16/20 23 10:56 AM EDT documented as of this encounter Care Teams Psychology Clinician Relationship Specialty Start Date End Date Daina Pichardo MD [address] [place] [address] PCP - General Internal Medicine 12/16/22 documented as of this encounter
--- OUTSIDE RECORDS SUMMARY | 2025-06-23 01:09 | XMS_ITS | Encounter Summary ---
Author Organization [email or web address] Address [address] [place] [address] Care Team Providers Care Cemetery Laborer Name Role Phone Daina Pichardo MD Primary Care Pro vider Reason for Visit * Reason Onset Date Comments Med Refill 05/01/2024 Encounter Details Date Type Department Care Team ([facility] st Contact Info) Description 05/01/2024 Telephone [facility] MEDICINE 230 [place], [place] [phone] Daina Pichardo MD 230 [place] [address] Med Refill Social History Tobacco Use Types [...] immediate release tablet To be sent to: [facility]/pharmacy #[id number] documented in this encounter Plan of Treatment Upcoming Encounters Date Type Department Care Team (Late st Contact Info) Description 07/04/2025 9:00 AM EST Clinical Support [facility] 505 [place] [address] Hanna Mark, JULIANN 505 [place] [address] 09/06/2025 9:30 AM EST Office Visit [facility] MEDICINE 230 [place] [address] Daina Pichardo MD 230 [place] [address] documented as of this encounter Visit Diagnoses Not on filedocumented in this encounter Additional Health Concerns Assessment Noted Time PHQ-9 Depression Total Score: 3 02/16/20 23 10:56 AM EDT documented as of this encounter Care Teams Cemetery Laborer Relationship Specialty Start Date End Date Daina Pichardo MD [address] [place] [address] PCP - General Internal Medicine 12/16/22 documented as of this encounter
[2025-06-23 01:13] LABS: MANUAL DIFF FLAG NO
[2025-06-23 01:15] LABS: Hematocrit 37.4 % (42.0-52.0); Hemoglobin 12.9 g/dl (14.0-18.0); Imm Gran Abs Auto 0.02 X10*3/uL (0.00-0.03); Imm Gran Pct Auto 0.3 % (0.0-0.4); Lymphocytes Absolute Auto 1.8 X10*3/uL (1.2-4.9); Mean Corpuscular HGB Conc 34.5 g/dl (31.0-36.0); Mean Corpuscular Hemoglobin 31.2 pg (27.0-33.0); Mean Corpuscular Volume 90.6 fL (80.0-98.0); NRBC Abs Auto 0.000 X10*3/uL (0.0-0.012); NRBC Pct Auto 0.0 /100WBC (0.0-0.2); Platelet Count 213 X10*3/uL (160-400); Red Blood Count 4.13 X10*6/uL (4.60-5.80); White Blood Count 6.7 X10*3/uL (4.8-10.8)
[2025-06-23 01:30] LABS: Alanine Aminotransferase 40 U/L (0-40); Albumin Level 4.2 g/dL (3.5-5.0); Alkaline Phosphatase 107 U/L (39-117); Anion Gap 12 (12-20); Aspartate Amino Transferase 24 U/L (5-37); Blood Urea Nitrogen 17 mg/dL (9-16); Calcium 9.3 mg/dL (8.4-10.2); Carbon Dioxide 26 mmol/L (22-29); Chloride 106 mmol/L (96-108); Creatinine Clr Calc Pharmacy 123.5; Estimated Glomerular Filt Rate > 60; Lipase 24 U/L (8-78); Magnesium 2.1 mg/dL (1.6-2.6); Potassium 3.7 mmol/L (3.3-5.1); Sodium 140 mmol/L (135-145); Total Protein 7.8 g/dL (6.5-8.0)
[2025-06-23 01:54] LABS: Resp Syncy Virus RNA Qual PCR NEGATIVE (Negative); SARS COV2 PCR INHOUSE NEGATIVE (Negative)
[2025-06-23 02:00] VITALS: BP 93/69; PULSE 70; RESP 16; TEMP 36.6; O2SAT 98
--- NOTE | 2025-06-23 02:58 | PC.NURSE ---
RN called to bedside and pt found to be vomiting. He reports continued pain without improvement by previous medication administration and states that he is vomiting s/t pain. MD made aware and new orders obtained.
--- NOTE | 2025-06-23 03:08 | PC.NURSE ---
RN called to bedside by patient callbell. pt found vomiting in the bed s/t pain according to him. he denies any improvement in pain s/p medication administration, MD made aware and new orders obtained. RN to bedside in an attempt to medicate however CT came to retrieve pt for CT scan. Pt to be medicated upon return.
[2025-06-23] MEDS: iohexoL 350 MG/ML 100 ML INFUS..BTL 85 ML IV (03:13)
[2025-06-23 03:18] VITALS: BP 100/64; PULSE 71; RESP 20; O2SAT 97
[2025-06-23 04:00] VITALS: BP 90/58; PULSE 66; TEMP 36.4; O2SAT 97
--- NOTE | 2025-06-23 04:03 | ED_ITS ---
HPI - Abdominal Pain General Chief Complaint: Abdominal Pain Stated Complaint: Crohn's flare Time Seen by Provider: 06/23/25 01:50 Source: patient Mode of arrival: ambulatory Limitations: no limitations History of Present Illness ED Provider: Dr. Samara Stark HPI narrative: Patient comes to the emergency room complaining of abdominal pain and reports seeing a bit of blood yesterday in the stool. Patient has been complaining of intermittent diarrhea for a few days. Patient is known to have Crohn's disease, ulcerative colitis, and has had surgeries for intestinal resections. Patient reports that of nausea and vomiting. Patient states that the last time that he was here, he had both ulcerative colitis and thinks he was passing a kidney stone. Patient denies any fever chills, denies hematuria or dysuria. Related Data Home Medications ?Medication ?Instructions ?Recorded ?Confirmed adalimumab 40 mg/0.4 mL 40 mg subcut TH@0900 2 06/19/24 subcutaneous pen kit (Humira(CF) Pen) clonazepam 1 mg tablet 1 tab PO BID PRN Anxiety 03/0206/19/24 loratadine 10 mg tablet 1 tab PO DAILY PRN Allergy S ymptoms 08/19/21 06/19/24 omeprazole 20 mg capsule,delayed 20 mg PO DAILY@0630 0 08/19/21 06/19/24 release zolpidem 10 mg tablet 1 tab PO BEDTIME 08/19/21 multivitamin with folic acid 400 1 tab PO DAILY 06/19/24 mcg tablet (Daily-Davis (with folic acid)) cyanocobalamin (vitamin B-12) 1,000 mcg IM QMONTH 04/0406/19/24 1,000 mcg/mL injection solution ferrous gluconate 324 mg (38 mg 324 mg PO MOWEFR 06/1906/19/24 iron) tablet Previous Rx's ?Medication ?Instructions ?Recorded methylnaltrexone 150 mg tablet 450 mg (3 x 150 mg) PO DAILY #20 10/16/24 (Relistor) tabs polyethylene glycol 3350 17 17 g PO BID PRN laxative e ffect 10/16/24 gram/dose oral powder (Miralax) #510 grams sodium phosphates 19 gram-7 197 ml OH DAILY 31 days #1 33 mL 10/16/24 gram/118 mL enema (Fleet Enema) metoclopramide HCl 5 mg tablet 5 mg PO Q8H PRN nausea and 03/01/25 (Reglan) vomiting #14 tabs Allergies Allergy/AdvReac Type Severity Reaction Status Date / Time ondansetron (Ondansetron) Allergy Mild HIVES Verified 06/23/25 00:58 Sulfa (Sulfonamide Allergy Mild UNKNOWN Verified 06/23/25 00:58 Antibiotics) ketorolac Allergy Unknown Unknown Verified 06/23/25 00:58 meperidine (Demerol) Allergy Unknown Unknown Verified 06/23/25 00:58 metoclopramide (Reglan) Allergy Unknown Unknown Verified 06/23/25 00:58 morphine (Morphine) Allergy Unknown RASH Verified 06/23/25 00:58 haloperidol (From Haldol) Allergy Anaphylaxis Verified 06/23/25 00:58 ketamine Allergy Unknown Verified 06/23/25 00:58 From REGLAN Allergy Mild PT UNSURE Uncoded 04/25/25 00:57 BUT STATES HE IS ALLERGIC Compro Allergy Unknown Unknown Uncoded 04/25/25 00:57 From COMPAZINE Allergy Unknown ITCHING Uncoded 04/25/25 00:57 From Demerol Allergy Unknown ITCHY HIVES Uncoded 04/25/25 00:57 From Toradol Allergy Unknown UNK Uncoded 04/25/25 00:57 Review of Systems Review of Systems Constitutional : No Weight loss, No Fever, No Chills, No Night Sweats, No Fatigue, No Malaise ENT/Mouth : No Hearing loss, No Ear Pain, No Nasal Congestion, No Sinus Pain, No Hoarseness, No sore throat, No Rhinorrhea, No Swallowing Difficulty Eyes: No Eye Pain, No Swelling, No Redness, No Foreign Body, No Discharge, No Vision Changes Cardiovascular : No Chest Pain, No SOB, No Dyspnea on Exertion, No Orthopnea, No Edema, No Palpitations Respiratory : No Cough, No Sputum, No Wheezing, No Smoke Exposure, No Dyspnea Gastrointestinal : No Nausea, No Vomiting, complaining of intermittent diarrhea, complaining of abdominal pain, more in the bilateral lower quadrants. Were seeing blood in the stool yesterday, none today. Genitourinary : no irregular bleeding, No Dysuria, No Urinary Frequency, No Hematuria, No Urinary Incontinence, No Urgency, No Flank Pain, No Urinary Flow Changes, No Hesitancy Musculoskeletal : No joint pain, No Myalgias, No Joint Swelling Skin : No Skin Lesions, No rash Neuro : No Weakness, No Numbness, No Paresthesias, No Loss of Consciousness, No Dizziness, No Headache Psych : No Anxiety/Panic, No Depression, No SI/HI/AH/VH, No Social Issues, Heme/Lymph: No Bruising, No Bleeding,No Lymphadenopathy Endocrine : No Polyuria, No Polydipsia, No Temperature Intolerance [facility] Past Medical History Medical History Ulcerative colitis Cervicalgia Migraine Anxiety Crohn's disease IBD (inflammatory bowel disease) Partial small bowel obstruction Surgical History History of colostomy reversal S/P colostomy History of surgery on arm Hx of colonoscopy History of esophagogastroduodenoscopy (EGD) Family History Family History Mother HTN (hypertension) Social History Social History Household Members: Spouse Housing: House Do you presently have visiting nurse or other home services: No Alcohol intake: never Patient Tobacco Use Status: Never used Tobacco Advance Directives: No Advance Directives Information Provided: Yes service: No Current occupational status: disabled Physical Exam ED Exam Exam: Appearance: Alert. Oriented X3. No acute distress. Eyes: Pupils equal, round and reactive to light. ENT: Pharynx normal. Neck: Normal inspection. Neck supple. No lymph nodes noted. No crepitus CVS: Normal heart rate and rhythm. Pulses normal. Normal S1 and S2 Respiratory: No respiratory distress. Breath sounds normal. No Wheezing. No rales Abdomen: Soft and nontender. No rigidity. No distention. Skin: Skin warm and dry. Normal skin color. Normal skin turgor. Extremities: No lower extremity edema. No Lacerations. No Rash Neuro: Oriented X 3. No motor deficit. No sensory deficit. Moving all extremities. No slurred speech. CN 2 through 12 grossly intact Psych: calm, cooperative, normal affect Vital Signs: Vital Signs - 24 hr 06/23/25 00:56 06/23/25 02:00 06/23/25 03:18 Temperature 97.9 F 97.9 F Pulse Rate 70 70 71 Respiratory Rate 20 16 20 Blood Pressure 105/65 93/69 100/64 Pulse Oximetry 97 98 97 Oxygen Delivery Method Room Air Room Air Room Air 06/23/25 04:00 Temperature 97.6 F Pulse Rate 66 Respiratory Rate Blood Pressure 90/58 L Pulse Oximetry 97 Oxygen Delivery Method Room Air BMI result Body Mass Index 24.1 Course Course Course Narrative: For symptomatic relief, patient was giving IV fluids, hydromorphone, diphenhydramine, Zofran, and IV Tylenol Medical Decision Making Medical Decision Making [facility] Narrative: My interpretation of labs: No significant abnormality patient's hematology and chemistry, LFTs within normal limits, lipase within normal limits. CT scan does not show any acute abnormality. 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 06/23/25 01:06 06/23/25 01:06 Labs: Lab Results 06/23/25 Range/Units 01:06 WBC 6.7 (4.8-10.8) X10*3/uL RBC 4.13 L (4.60-5.80) X10*6/uL Hgb 12.9 L (14.0-18.0) g/dl Hct 37.4 L (42.0-52.0) % MCV 90.6 (80.0-98.0) fL MCH 31.2 (27.0-33.0) pg MCHC 34.5 (31.0-36.0) g/dl RDW 12.3 (11.0-16.0) % Plt Count 213 (160-400) X10*3/uL MPV 10.3 (9.4-12.4) fL Immature Gran % (Auto) 0.3 (0.0-0.4) % Neut % (Auto) 63.7 (45-73) % Lymph % (Auto) 27.1 (20-40) % Trinity % (Auto) 7.5 (2-11) % Eos % (Auto) 1.0 (0-4) % Baso % (Auto) 0.4 (0-2) % Lymph # (Auto) 1.8 (1.2-4.9) X10*3/uL Trinity # (Auto) 0.5 (0.1-1.2) X10*3/uL Eos # (Auto) 0.1 (0.0-0.4) X10*3/uL Baso # (Auto) 0.0 (0.0-0.2) X10*3/uL Abs Immat Gran (auto) 0.02 (0.00-0.03) X10*3/uL Absolute Neuts (auto) 4.3 (2.0-8.3) x10*3/uL Absolute Nucleated RBC 0.000 (0.0-0.012) X10*3/uL Nucleated RBC % (auto) 0.0 (0.0-0.2) /100WBC Sodium 140 (135-145) mmol/L Potassium 3.7 (3.3-5.1) mmol/L Chloride 106 (96-108) mmol/L Carbon Dioxide 26 (22-29) mmol/L Anion Gap 12 (12-20) BUN 17 H (9-16) mg/dL Creatinine 0.65 (0.5-1.4) mg/dL Estim Creat Clear Calc 123.5 Estimated GFR > 60 Random Glucose 109 (60-115) mg/dL Calcium 9.3 (8.4-10.2) mg/dL Magnesium 2.1 (1.6-2.6) mg/dL Total Bilirubin 0.5 (0.0-1.0) mg/dL AST 24 (5-37) U/L ALT 40 (0-40) U/L Alkaline Phosphatase 107 (39-117) U/L Total Protein 7.8 (6.5-8.0) g/dL Albumin 4.2 (3.5-5.0) g/dL Lipase 24 (8-78) U/L Influenza Type A (PCR) NEGATIVE (Negative) Influenza Type B (PCR) NEGATIVE (Negative) RSV RNA Qual (PCR) NEGATIVE (Negative) SARS-CoV-2 RNA (RT-PCR) NEGATIVE (Negative) Independent Interpretation I performed an independent interpretation of an: CT Scan Radiology Impression Discussion of test interpretation with radiology: I have reviewed the radiologist's reading. Radiologist Impression: The lung bases are clear. The liver, spleen, pancreas, Bilateral kidneys and bilateral adrenal glands without acute abnormality or abnormal enhancement. The spleen is borderline prominent, unchanged. Gallbladder surgically absent. The stomach and bowel loops are not dilated. There are no focal colonic lesions or pneumatosis. There are signs of prior partial bowel resection. Appendix is not seen, likely surgically absent. No pericecal inflammatory changes. No free fluid, collections or free air. No aortic dissection or aneurysm. No lymphadenopathy. The bladder is normal. There is no acute soft tissue or skeletal abnormality in the abdomen or pelvis. IMPRESSION: No acute findings. Mild splenomegaly. Medications Administered Discontinued Medications Generic Name Dose Route Start Last Admin Trade Name Freq PRN Reason Stop Dose Admin Diphenhydramine HCl 50 mg 06/23/25 02:12 06/23/25 02:23 Diphenhydramine Hcl 50 Mg/Ml Vial IVPUSH 06/23/25 02:13 50 mg ONCE ONE Administration Hydromorphone HCl 1 mg 06/23/25 02:12 06/23/25 02:23 Hydromorphone Hcl 1 Mg/Ml Syringe IVPUSH 06/23/25 02:13 1 mg ONCE ONE Administration Protocol Sodium Chloride 1,000 mls @ 999 mls/hr 06/23/25 02:12 06/23/25 03:15 Ns IVCONT 06/23/25 03:12 Infused .Q1H1M ONE Infusion Acetaminophen 1,000 mg in 100 mls @ 400 mls/hr 06/23/25 02:57 06/23/25 03:35 Ofirmev IV 06/23/25 03:11 Infused ONCE ONE Infusion Iohexol 85 ml 06/23/25 03:12 06/23/25 03:13 Iohexol 350 Mg/Ml 100 Ml Infus..Btl IV 06/23/25 03:13 85 ml ONCE ONE Administration Ondansetron HCl 4 mg 06/23/25 02:12 06/23/25 02:23 Ondansetron Hcl 4 Mg/2 Ml Vial IVPUSH 06/23/25 02:13 4 mg ONCE ONE Administration Critical Care Time Critical Care Time Critical Care Time: Yes Total Critical Care Time: 45 Attestation: I have personally provided critical care time. Time includes review of lab data, radiology results, discussion with consultants, and monitoring for potential decompensation. Intervention performed as documented. Discharge Plan Discharge Clinical Impression: Abdominal pain, Nausea & vomiting Patient Disposition: Home, Self-Care Instructions: Acute Nausea and Vomiting (DC), Abdominal Pain (ED) Additional Instructions: Please follow-up with your primary care physician tomorrow. If you have any worsening or new symptoms, please return to the emergency room or call 911 Prescriptions: No Action clonazepam 1 mg tablet 1 tab PO BID PRN (Reason: Anxiety) omeprazole 20 mg capsule,delayed release(DR/EC) 20 mg PO DAILY@0630 zolpidem 10 mg tablet 1 tab PO BEDTIME loratadine 10 mg tablet 1 tab PO DAILY PRN (Reason: Allergy Symptoms) Humira(CF) Pen 40 mg/0.4 mL pen injector kit 40 mg subcut TH@0900 multivitamin with folic acid [Daily-Davis (with folic acid)] 400 mcg tablet 1 tab PO DAILY cyanocobalamin (vitamin B-12) 1,000 mcg/mL solution 1,000 mcg IM QMONTH ferrous gluconate 324 mg (38 mg iron) tablet 324 mg PO MOWEFR polyethylene glycol 3350 [Miralax] 17 gram/dose powder 17 g PO BID PRN (Reason: laxative effect) Qty: 510 0RF Relistor 150 mg tablet 450 mg PO DAILY Qty: 20 0RF Fleet Enema 19-7 gram/118 mL enema 197 ml OH DAILY 31 Days Qty: 133 2RF metoclopramide HCl [Reglan] 5 mg tablet 5 mg PO Q8H PRN (Reason: nausea and vomiting) Qty: 14 0RF Print Language: Slovenian
[2025-06-23 04:52] VITALS: BP 90/58; PULSE 66; RESP 16; TEMP 36.4; O2SAT 97
== END 2025-06-23 05:00 | disposition home or self-care (01) ==
PROVIDERS: Emergency Provider Emergency Medicine
DX: R10.32 Left lower quadrant pain (principal); R11.2 Nausea with vomiting, unspecified; R19.7 Diarrhea, unspecified; K50.90 Crohn's disease, unspecified, without complications; Z03.818 Encounter for observation for suspected exposure to other biological agents ruled out; Z90.49 Acquired absence of other specified parts of digestive tract
CPT/HCPCS: 74177; 80053; 83690; 83735; 85025; 87637; 96361; 96365; 96375; 99284; 99285; J0131; J1171; J1200; J2405; Q9967

== ENCOUNTER → 2025-06-23 02:55 | Outpatient (BNV) | payer OTHER, SELFPAY | PROVIDERS: Emergency Provider Emergency Medicine; Visit Provider Radiology Diagnostic Radiology | DX: R16.1 Splenomegaly, not elsewhere classified (principal) | CPT/HCPCS: 74177 ==